=== PATIENT | male | born 1960 | race Caucasian/White ===

== ENCOUNTER → 2018-01-01 13:57 | Outpatient (CLI) | payer MEDICARE, SELFPAY ==
[2018-01-01 15:21] LABS: Absolute Lymphocyte Count 1.32 X10^3/ul (0.83-4.51); Absolute Neutrophil Count 7.7 X10^3/uL (2.0-7.7); Basophil# 0.03 X10^3/uL; Basophil% 0.3 % (0-1); Eosinophil# 0.08 X10^3/uL; Eosinophils% 0.8 % (0-5); Hematocrit 49.5 % (40-54); Hemoglobin 16.6 g/dl (13.0-16.5); Lymphocyte # 1.32 X10^3/ul (4.0); Lymphocyte % 13.7 % (19-41); Mean Corp Hgb Conc 33.5 g/gl (32-36); Mean Corpuscular Hgb 29.1 pg (27.0-32.0); Mean Corpuscular Volume 86.7 fL (80-94); Mean Platelet Vol. 11.2 fl (6.2-12.0); Monocyte# 0.46 X10^3/uL; Monocyte% 4.8 % (0-10); Neutrophil % 80.2 % (47-70); Platelet Count 366 K/mm3 (150-450); RBC Distribution Width CV 13.8 % (11.6-14.6); RBC Distribution Width SD 43.3 fl (35.1-43.9); Red Blood Count 5.71 M/mm3 (4.6-6.2); White Blood Count 9.6 K/mm3 (4.4-11.0)
[2018-01-01 15:38] LABS: ALB/GLOB Ratio 0.9 RATIO (0.9-2.4); AST(SGOT) 10 U/L (15-37); Alanine Aminotransfer ALT/SGPT 16 U/L (16-61); Albumin, Serum 3.7 g/dL (3.2-5.0); Alkaline Phosphatase 136 U/L (45-117); Anion Gap 8 (5-15); BUN 12 mg/dL (7-18); BUN/Creat Ratio 9.5 RATIO (10-20); Calcium,Total 8.6 mg/dL (8.5-10.1); Chloride 100 mmol/L (98-107); Cholesterol 211 mg/dL (200); Creatinine, Serum 1.26 mg/dL (0.70-1.30); EST Glomerular Filtration Rate 63 mL/min (>60); Est Glom Filt Rate - Afr Amer 76 mL/min (>60); Globulin 4.2 g/dL (2.2-4.2); Glucose 182 mg/dL (74-106); High Density Lipoprotein 34 mg/dL; Potassium 3.7 mmol/L (3.5-5.1); Prealbumin 23.7 mg/dL (20.0-40.0); Protein, Total 7.9 g/dL (6.4-8.2); Sodium Level 138 mmol/L (136-145); Thyroid Stim Hormone (TSH) 1.25 uIU/mL (0.358-3.74); Triglycerides 147 mg/dL; Very Low Density Lipoprotein 29 mg/dL (5-40)
[2018-01-01 15:44] LABS: POSITIVE COUNT NO; POSITIVE DIFFERENTIAL NO; POSITIVE MORPHOLOGY NO
[2018-01-02 18:27] LABS: PSA, Free 0.12 ng/mL; PSA, Total Ultrasensitive 0.6 ng/mL (0.0-4.0)
== END ==
PROVIDERS: Family Provider Family Medicine; PCP Family Medicine; Visit Provider Family Medicine
DX: I10 Essential (primary) hypertension (principal); E11.65 Type 2 diabetes mellitus with hyperglycemia; R63.4 Abnormal weight loss
CPT/HCPCS: 36415; 80053; 80061; 84134; 84153; 84154; 84443; 85025

== ENCOUNTER 2018-05-20 16:14 | Observation (INO) | payer MEDICARE, SELFPAY ==
[2018-05-20] VITALS (15 sets, daily range): BP systolic 135–214; BP diastolic 106–141; PULSE 77–833; RESP 11–22; TEMP 36.4–36.8; O2SAT 97–100; BMI 24.7; BMI 23.3; BMI 23.4
--- NOTE | 2018-05-20 16:41 | ED.DCSUM_ITS ---
- ER Visit Summary Date of Service: 05/20/18 Chief Complaint: Chest pain History of Present Illness: The patient is a 57 M with history of prior myocardial infarction, diabetes, hypertension and hypercholesterolemia who presents for chest pain since this morning. Pain is substernal and does not radiate. Onset was at rest. Initial pain was a 9 out of 10 and is now a 7 out of 10 after patient took Aleve. Patient states he cannot describe the pain. He states he also is having some right upper quadrant abdominal pain. He has no history of cholecystectomy. Patient denies smoking but does use oral tobacco. He denies alcohol use. Patient has not taken any aspirin today. Physical Examination: Vital signs: afebrile, hemodynamically stable, no hypoxia on room air General: well nourished, well developed, in no distress Skin: warm, dry, no rash, no pallor HEENT: normocephalic and atraumatic; PERRL, EOMI, moist mucous membranes, oral tobacco and mustache and alvarez Cardiovascular: regular rate and rhythm without murmurs, no peripheral edema, 2 + pulses all distal extremities Respiratory: No increased work of breathing, lungs are clear to auscultation bilaterally, no rales, rhonchi or wheezing Abdominal: Abdomen is soft, tender in the epigastrium and medial right and left upper quadrants with normoactive bowel sounds, no guarding or rebound, no masses , negative Mcghee's sign, no hepatosplenomegaly MSK: Moves all extremities, no deformities, normal strength Neuro: Awake and alert, oriented ?4. No facial droop, sensation and motor function intact and symmetric Test Results: Abnormal Lab Results 05/20/18 05/20/18 05/20/18 16:30 16:30 16:30 WBC 7.5 RBC 5.05 Hgb 15.3 Hct 44.3 MCV 87.7 MCH 30.3 MCHC 34.5 RDW 13.5 RDW Differential 42.9 Plt Count 283 MPV 10.8 Immature Gran % (Auto) 0.100 Neut % (Auto) 71.5 H Lymph % (Auto) 17.8 L [place] % (Auto) 5.9 Eos % (Auto) 4.4 Baso % (Auto) 0.3 Absolute Neuts (auto) 5.4 Absolute Lymphs (auto) 1.33 Total Counted Not Reportable PT 14.2 INR 1.1 APTT 29.7 Sodium 144 Potassium 3.9 Chloride 106 Carbon Dioxide 26.0 Anion Gap 12 BUN 22 H Creatinine 1.64 H Estim Creat Clear Calc 56.16 Est GFR (MDRD) Af Amer 56 L Est GFR (MDRD) Non-Af 46 L BUN/Creatinine Ratio 13.4 Glucose 123 H Calcium 8.7 Total Bilirubin 1.00 AST 9 L ALT 12 L Alkaline Phosphatase 87 Troponin I < 0.015 Total Protein 7.0 Albumin 4.0 Globulin 3.0 Albumin/Globulin Ratio 1.3 Lipase 99 POC Glucose 05/20/18 05/20/18 20:50 21:25 WBC RBC Hgb Hct MCV MCH MCHC RDW RDW Differential Plt Count MPV Immature Gran % (Auto) Neut % (Auto) Lymph % (Auto) [place] % (Auto) Eos % (Auto) Baso % (Auto) Absolute Neuts (auto) Absolute Lymphs (auto) Total Counted PT INR APTT Sodium Potassium Chloride Carbon Dioxide Anion Gap BUN Creatinine Estim Creat Clear Calc Est GFR (MDRD) Af Amer Est GFR (MDRD) Non-Af BUN/Creatinine Ratio Glucose Calcium Total Bilirubin AST ALT Alkaline Phosphatase Troponin I < 0.015 Total Protein Albumin Globulin Albumin/Globulin Ratio Lipase POC Glucose 158 H Clinical Impression(s) from Imaging Studies Chest X-Ray 05/20/18 17:50 IMPRESSION: No radiographic evidence of acute cardiopulmonary disease. Electronically Signed: Shanon Hammond MD at 18:13 EDT , Service support , Emergency Department Course and Treatment: Patient has significant cardiac history and risk factors and presents with substernal chest pain since this morning that occurred at rest. He states it is been constant all day and also has some right upper quadrant abdominal pain. Workup showed an EKG without ischemia or ectopy. Troponin negative. No leukocytosis. Creatinine elevated at 1.6. Chest x-ray showed no acute process. Patient received aspirin. He had complete resolution of his pain after 2 nitro. Patient was hypertensive upon arrival and blood pressure continued to go up. Patient states he is supposed to take antihypertensive medication but is not taking it in a long time for no specific reason other than he just has not taken it. Because patient is having chest pain and is also significantly hypertensive, he was given a dose of IV labetalol to help with blood pressure control in case it is contributing to his symptoms. Patient was discussed with the hospitalist for admission for further chest pain workup in a patient with significant cardiac history and very poorly controlled blood pressure. On reevaluation patient was pain-free and had no complaints. Treatment Plan: [] Disposition: [] Impression: Chest pain, uncontrolled hypertension, medication noncompliance, history of ACS This note was generated with [employer] dictation software. It may contain incorrect words, spelling, and punctuation that were not noted in review of the chart prior to signing ED Disposition - Plan for ED Patient: Disposition: Acute Care Hospital [facility] Chief Complaint: Chest Pain
[2018-05-20] MEDS: Aspirin 81 MG TAB.CHEW 324 MG PO (16:52)
[2018-05-20 17:03] LABS: Absolute Lymphocyte Count 1.33 X10^3/ul (0.83-4.51); Absolute Neutrophil Count 5.4 X10^3/uL (2.0-7.7); Basophil# 0.02 X10^3/uL; Basophil% 0.3 % (0-1); Eosinophil# 0.33 X10^3/uL; Eosinophils% 4.4 % (0-5); Hematocrit 44.3 % (40-54); Hemoglobin 15.3 g/dl (13.0-16.5); Lymphocyte # 1.33 X10^3/ul (4.0); Lymphocyte % 17.8 % (19-41); Mean Corp Hgb Conc 34.5 g/gl (32-36); Mean Corpuscular Hgb 30.3 pg (27.0-32.0); Mean Corpuscular Volume 87.7 fL (80-94); Mean Platelet Vol. 10.8 fl (6.2-12.0); Monocyte# 0.44 X10^3/uL; Monocyte% 5.9 % (0-10); Neutrophil # 5.36 X10^3/uL (2.7-7.7); Neutrophil % 71.5 % (47-70); POSITIVE COUNT NO; POSITIVE DIFFERENTIAL NO; POSITIVE MORPHOLOGY NO; Platelet Count 283 K/mm3 (150-450); RBC Distribution Width CV 13.5 % (11.6-14.6); RBC Distribution Width SD 42.9 fl (35.1-43.9); Red Blood Count 5.05 M/mm3 (4.6-6.2); White Blood Count 7.5 K/mm3 (4.4-11.0)
[2018-05-20 17:13] LABS: International Normalized Ratio 1.1; Prothrombin Time (Protime)PT. 14.2 SECONDS (11.7-14.9)
[2018-05-20 17:14] LABS: Partial Thromboplast Time 29.7 Seconds (24.1-36.2)
[2018-05-20 17:18] LABS: ALB/GLOB Ratio 1.3 RATIO (0.9-2.4); AST(SGOT) 9 U/L (15-37); Alanine Aminotransfer ALT/SGPT 12 U/L (16-61); Alkaline Phosphatase 87 U/L (45-117); Anion Gap 12 (5-15); BUN 22 mg/dL (7-18); BUN/Creat Ratio 13.4 RATIO (10-20); Calcium,Total 8.7 mg/dL (8.5-10.1); Chloride 106 mmol/L (98-107); Creatinine, Serum 1.64 mg/dL (0.70-1.30); EST Glomerular Filtration Rate 46 mL/min (>60); Est Glom Filt Rate - Afr Amer 56 mL/min (>60); Estimated Creatinine Clearance 56.16 ml/min; Glucose 123 mg/dL (74-106); Lipase 99 U/L (73-393); Potassium 3.9 mmol/L (3.5-5.1); Sodium Level 144 mmol/L (136-145)
--- NOTE | 2018-05-20 19:10 | PCM.HP.STD ---
Problem List (1) Chest pain at rest Status: Acute (2) HTN (hypertension) Status: Chronic Qualifiers: Hypertension type: essential hypertension Qualified Code(s): I10 - Essential (primary) hypertension (3) Diabetes Status: Chronic Qualifiers: Diabetes mellitus type: type 2 Diabetes mellitus emt intermediate insulin use: with emt intermediate use Diabetes mellitus complication status: with unspecified complications Qualified Code(s): E11.8 - Type 2 diabetes mellitus with unspecified complications; Z79.4 - superintendent terminal (current) use of insulin; Z79.4 - skilled nursing (current) use of insulin; Z79.4 - skilled nursing (current) use of insulin; Z79.4 - skilled nursing (current) use of insulin (4) Tobacco chew use Status: Chronic (5) RASHAWN (acute kidney injury) Status: Acute History of Present Illness Date of Admission: 05/20/18 Chief Complaint: Chest pain ?1 day. The patient is a 57 year old M with a significant history of CAD status post 2 stents, diabetes, hypertension, and patent foramen ovale who presented with 1 day history of continuous chest pain. Patient describes his chest pain as 7 out of 10. He is unable to describe the quality of his chest pain. His chest pain is substernal and it occurs at rest. At emergency department he was given 2 nitroglycerin and 4 baby aspirin which brought his chest pain from 7 to a 5. He last took his blood pressure medication a day before this admission. Past Medical History Past Medical History (Chronic Problems): Chronic Problems Tobacco chew use (Chronic) PFO (patent foramen ovale) (Chronic) Cerebrovascular disease (Chronic) Multiple acute ischemic strokes. Mild right facial and right upper extremity paresthesia. Diabetes (Chronic) HTN (hypertension) (Chronic) Hyperlipidemia (Chronic) Smokeless tobacco use (Chronic) CAD (coronary artery disease) (Chronic) CVA (cerebral vascular accident) (Chronic) S/P PTCA (percutaneous transluminal coronary angioplasty) (Chronic) Hyperglycemia (Chronic) Noncompliance with medication regimen (Chronic) Allergies ampicillin Allergy (Verified 05/20/18 16:15) Swelling ibuprofen [From Motrin] Allergy (Verified 05/20/18 16:15) Swelling SEA FOOD Allergy (Uncoded 05/20/18 16:15) Swelling Home Medications: Ambulatory Orders Medication Instructions Recorded Doxepin HCl 20 mg PO QHS 01/02/18 Oxycodone HCl/Acetaminophen 10 - 325 mg PO Q6H PRN PRN 09/18/17 [Percocet 10-325 mg Tablet] Atorvastatin Calcium [Lipitor] 80 mg PO QHS #30 tab 09/20/17 Lisinopril [Zestril] 20 mg PO DAILY #30 tab 09/20/17 Surgical History: - - PCI, ankle, hip surgery, stomach surgery, neck surgery. Psychiatric History: No pertinent psych hx Lives: Alone Smoking Status: Never smoker Tobacco Use: Chew Drugs: None - *Family History Maternal History Items: Diabetes Paternal History Items: Heart Disease Sibling History Items: Heart Disease - CAD Review of Systems Constitutional: Denies: Chills, Fever, Weight Change Eyes: Denies: Blurred vision, Pain HEENT: Denies: Head Aches, Sinus Congestion, Sinus Drainage Cardiovascular: Reports: Chest Pain. Denies: Edema Respiratory: Denies: Cough, Shortness of breath at rest, Sputum production Gastrointestinal: Denies: Abdominal Pain, Nausea, Vomiting Genitourinary: Denies: Dysuria Musculoskeletal: Reports: - - Bilateral hip pain (chronic). Skin: Denies: Rash, Wounds Neurological: Denies: Numbness, Tingling, Focal weakness Psychiatric: Denies: Anxiety, Depression, Homicidal Ideations, Suicidal Ideations Hematologic/ Lymphatic: Denies: Easy Bruising, Easy Bleeding VTE Information - Inpt Only VTE Present on Admission: No VTE Mechan Device Prophylaxis: None VTE Pharm Prophylaxis ordered?: Yes Patient Problems: Active and Suspected Problems Chest pain at rest (Acute) RASHAWN (acute kidney injury) (Acute) - Physical Exam General: Alert, Oriented x3, Cooperative HEENT: Atraumatic, PERRLA, EOMI, Normocephalic Neck: Supple, No JVD, Negative Carotid Bruits Lungs: Clear to auscultation, Normal air movement Cardiovascular: No murmurs, Tachycardic Abdomen: Bowel Sounds Present, Soft, Non Tender Extremities: No edema, Capillary Refill Less than 3 Seconds Skin: No rashes, No breakdown Musculoskeletal: No Tenderness to Palpation of Joints or Extremities Neurological: Cranial nerves II-XII grossly intact Psych/Mental Status: Normal Affect, Appropriate Vital Signs Temp Pulse Resp BP Pulse Ox 97.5 F L 86 17 206/141 H 100 05/20/18 16:16 05/20/18 19:01 05/20/18 19:01 05/20/18 19:01 05/20/18 19:01 Oxygen Flow Rate (L/min) 2 Oxygen Delivery Method Nasal Cannula Weight: 85.275 kg Body Mass Index (BMI) 24.7 Finger Stick Blood Glucose 391 Laboratory Tests Past 24 Hrs 05/20/18 05/20/18 05/20/18 16:30 16:30 16:30 WBC 7.5 RBC 5.05 Hgb 15.3 Hct 44.3 MCV 87.7 MCH 30.3 MCHC 34.5 RDW 13.5 RDW Differential 42.9 Plt Count 283 MPV 10.8 Immature Gran % (Auto) 0.100 Neut % (Auto) 71.5 H Lymph % (Auto) 17.8 L [place] % (Auto) 5.9 Eos % (Auto) 4.4 Baso % (Auto) 0.3 Absolute Neuts (auto) 5.4 Absolute Lymphs (auto) 1.33 Total Counted Not Reportable PT 14.2 INR 1.1 APTT 29.7 Sodium 144 Potassium 3.9 Chloride 106 Carbon Dioxide 26.0 Anion Gap 12 BUN 22 H Creatinine 1.64 H Estim Creat Clear Calc 56.16 Est GFR (MDRD) Af Amer 56 L Est GFR (MDRD) Non-Af 46 L BUN/Creatinine Ratio 13.4 Glucose 123 H Calcium 8.7 Total Bilirubin 1.00 AST 9 L ALT 12 L Alkaline Phosphatase 87 Troponin I < 0.015 Total Protein 7.0 Albumin 4.0 Globulin 3.0 Albumin/Globulin Ratio 1.3 Lipase 99 Assessment/Plan All Active Problems Chest pain at rest (Acute) RASHAWN (acute kidney injury) (Acute) Uncontrolled type 2 diabetes mellitus (Acute) Elevated troponin (Acute) Acute cerebrovascular accident of cerebellum (Acute) Syncope (Acute) Abnormal cardiac enzyme level (Acute) Hypokalemia (Acute) found confused (Acute) The patient is a 57 year old M with a significant history of CAD status post 2 stents, diabetes, hypertension, and patent foramen ovale who presented with 1 day history of continuous chest pain likely due to hypertensive emergency or angina pectoris; also found to have elevated creatinine consistent with acute kidney injury. Chest pain EKG reviewed independently does not show ST elevations or depressions. It shows prolonged QT Intervals. Chest x-ray independently reviewed is unremarkable. BMP, cardiac enzymes and other labs were reviewed Troponin is unremarkable. Admit to a monitored bed on PCU Old records reviewed showed shows history of previous chest pain and uncontrolled hypertension. ASA 81 mg p.o. daily SL NTG 0.4 mg prn as needed for chest pain Serial cardiac enzymes Stat EKG as needed for chest pain Chemical stress test in the AM if the cardiac enzymes are negative; patient has bilateral hip replacements and has pain in bilateral hips (likely from osteoarthritis) and cannot exercise High intensity Lipitor continued. Review of records showed lipid panel on 01/01/2018 showed cholesterol 211; LDL 148; HDL 34; VLDL 29. Hypertensive emergency Systolic blood pressure at emergency department was more than 200; uncontrolled. Patient with chronic hypertension. Patient reported last time he took blood pressure medication was a day before his admission. Hypertensive emergency likely due to barrier in taking medication Patient received labetalol at emergency department Urine drug screen ordered. Trend blood pressures and titrate antihypertensive medications. Echocardiogram on 09/19/17 showed an ejection fraction of 40%. However at that time he had influenza. And per cardiology notes; further evaluation after his influenza resolved was suggested. Echocardiogram ordered. On her last visit cardiology suggested continuation of beta blockers, DAMIÁN inhibitor and possible addition of a calcium channel nanette. DAMIÁN inhibitor (lisinopril) has been held because of RASHAWN. Home medications does not show a beta-nanette; or calcium channel nanette at this time. Metoprolol and amlodipine ordered. Clonodine prn and labetalol prn for systolic blood pressure more than 180. Titrate blood pressure medication as necessary. RASHAWN Creatinine on admission was 1.64 Review of previous creatinine shows a creatinine level of 1.26 on 01/01/2018; and1.16 on 09/21/2015. BUN over creatinine is more than 20. Likely due to prerenal from dehydration. Trend BMP Gentle fluid hydration with normal saline Avoid nephrotoxic Diabetes Patient reports that he takes Humalog 5-6 units with each meal. He reports that he use to take metformin 2000 mg daily but metformin dose was cut down. Correction scale insulin ordered for now. We will keep n.p.o. for cardiac evaluation in a.m. Fingerstick blood glucose every 6 hours with correction scale insulin. Tobacco abuse Patient chew tobacco. Was counseled Refused nicotine patch. History of CAD with stents Aspirin as above. Osteoarthritis of bilateral hips. Patient reports bilateral hip replacements and scheduled Percocet 4 times daily. Percocet continued. DVT prophylaxis with subcutaneous heparin. Code Visit Inpatient E&M: 37981 Init Hosp L3
--- NOTE | 2018-05-20 19:58 | NURSING ---
ED call floor to see if pt. can come up. charge RNs were in report so did not call earlier. Told ED OK bring. pt.
[2018-05-20] MEDS: 0.9% Normal Saline 1,000 ML 75 ML IV (21:16)
[2018-05-20] MEDS: amLODIPine 5 MG Tablet PO (21:17)
[2018-05-20] MEDS: Metoprolol Tartrate 50 MG Tablet PO (21:18)
[2018-05-20] MEDS: Atorvastatin Calcium 80 MG Tablet PO (21:18)
[2018-05-20] MEDS: Heparin Injection (Vial) 5,000 UNIT/ML VIAL 5000 UNIT SC (21:22)
[2018-05-20] MEDS: Insulin Lispro 100 UNIT/ML INSULN.PEN SQ (21:36)
[2018-05-20] MEDS: Doxepin Hydrochloride 10 MG Capsule 20 MG PO (22:16)
[2018-05-20] MEDS: oxyCODONE 5 MG Tablet 10 MG PO (22:17)
[2018-05-20 23:06] LABS: Bedside Glucose 158 mg/dL (70-110)
[2018-05-21] VITALS (21 sets, daily range): BP systolic 111–191; BP diastolic 69–118; PULSE 66–90; RESP 16–18; TEMP 36.4–37.2; O2SAT 95–100
[2018-05-21 05:39] LABS: Hematocrit 42.4 % (40-54); Mean Corpuscular Hgb 29.4 pg (27.0-32.0); Mean Corpuscular Volume 89.1 fL (80-94); Mean Platelet Vol. 10.5 fl (6.2-12.0); Platelet Count 238 K/mm3 (150-450); RBC Distribution Width CV 13.7 % (11.6-14.6); RBC Distribution Width SD 44.5 fl (35.1-43.9); Red Blood Count 4.76 M/mm3 (4.6-6.2); White Blood Count 6.9 K/mm3 (4.4-11.0)
[2018-05-21 05:45] LABS: Scan Indicated on CBC? Y/N NO
[2018-05-21 05:52] LABS: International Normalized Ratio 1.1; Prothrombin Time (Protime)PT. 13.9 SECONDS (11.7-14.9)
[2018-05-21 05:58] LABS: Anion Gap 9 (5-15); BUN 21 mg/dL (7-18); BUN/Creat Ratio 16.3 RATIO (10-20); Chloride 106 mmol/L (98-107); Creatinine, Serum 1.29 mg/dL (0.70-1.30); EST Glomerular Filtration Rate 61 mL/min (>60); Est Glom Filt Rate - Afr Amer 74 mL/min (>60); Glucose 131 mg/dL (74-106); Potassium 3.6 mmol/L (3.5-5.1); Sodium Level 142 mmol/L (136-145)
[2018-05-21] MEDS: Aspirin E.C. 81 MG Tablet PO (06:32)
[2018-05-21 06:55] LABS: Bedside Glucose 120 mg/dL (70-110)
--- NOTE | 2018-05-21 11:01 | STRESSREP ---
Stress Test Report Date: 05/21/2018 Procedure: Pharmacologic stress nuclear imaging study Indications: Chest pain; CAD; status post PCI Consent: Per the patient Procedure: The patient underwent pharmacologic (Regadenoson) evaluation with a peak heart rate of 91 beats per minute (55 predicted maximal heart rate) and a peak blood pressure of 162/118 mmHg. The baseline ECG demonstrated normal sinus rhythm. The peak pharmacologic ECG demonstrated subtle nonspecific ST/T-wave abnormality. There were no cardiac dysrhythmias pretest, during pharmacologic infusion, or recovery. There was no complaint of chest discomfort during pharmacologic infusion or recovery. The examination was discontinued secondary to completion of protocol. Impression: 1. Pharmacologic (Regadenoson) evaluation 2. Peak pharmacologic ECG with subtle nonspecific ST/T-wave abnormality. 3. There were no cardiac dysrhythmias pretest, during pharmacologic infusion, or recovery 4. Nuclear images pending Myocardial perfusion imaging study: Technique: The patient was injected with 11.8 millicuries of technetium 99m Cardiolite and subsequently rest SPECT Cardiolite nuclear imaging was obtained in the horizontal long, vertical long, and short axis views. The patient underwent pharmacologic (Regadenoson) evaluation with a peak heart rate of 91 beats per minute (55 % percent predicted maximal heart rate) and a peak blood pressure of 162/118 mmHg. The patient was injected with 33.8 millicuries of technetium 99m Cardiolite and subsequently stress SPECT Cardiolite nuclear imaging was obtained in the horizontal long, vertical long, and short axis views. A gated Cardiolite study at peak stress was obtained. Interpretation: Rest and stress SPECT Cardiolite nuclear imaging status post realignment, normalization, and attenuation correction demonstrate the appearance of diminished absence of myocardial perfusion/tracer uptake in portions of the basal to mid lateral segments which appears to be somewhat more prominent following stress as opposed to rest. There is diminished end systolic thickening and brightening in the aforementioned areas. The gated Cardiolite study demonstrates diminished myocardial thickening and inward wall motion in the aforementioned areas. The reported LVEF is 36%. Impression: 1. Rest and stress SPECT Cardiolite nuclear imaging demonstrate myocardial perfusion changes appearing compatible with an area of previous myocardial injury/infarction involving the basal to mid lateral segment with post stress myocardial perfusion changes appearing compatible with mild erum-infarct related myocardial ischemia. 2. The gated Cardiolite study reports an LVEF of 36 %. This note was generated with Dragon dictation software. It may contain incorrect words, spelling, and punctuation that were not noted in checking the note before signing.
--- NOTE | 2018-05-21 12:14 | CASEMGMT ---
According to the [facility] website, the following are in-network tertiary facilities: [facility], [place], [facility], [facility], [facility], [facility], and . Salome PRABHAKAR CM
[2018-05-21] MEDS: Metoprolol Tartrate 50 MG Tablet PO ×2 (12:29→23:11)
[2018-05-21] MEDS: amLODIPine 5 MG Tablet PO (12:29)
--- NOTE | 2018-05-21 12:33 | PCM.PROGNOTE ---
Patient Problems: Active and Suspected Problems Chest pain at rest (Acute) RASHAWN (acute kidney injury) (Acute) Chest pain (Acute) Abnormal stress test (Acute) Subjective: Chief complaint: Follow-up after admission for chest pain, acute kidney injury and hypertensive urgency. Patient seen and examined. No acute events overnight. This morning, he denies any more chest pain. He had very flat affect and did not say cover for this. He had very flat face. His blood pressure improved, other vital signs are stable. - Physical Exam General: Alert, Oriented x3, Cooperative, No apparent distress HEENT: Atraumatic, PERRLA, EOMI, Normocephalic Oral: Moist Mucosa, No Gingival or Mucosal Lesions/ Ulcerations Neck: Supple, No JVD, Negative Carotid Bruits, Trachea Midline, Thyroid Normal Size and Texture Lungs: Clear to auscultation, Normal air movement, No rhonchi, No wheeze, No rales Cardiovascular: Regular rate, Regular Rhythm, Normal S1, Normal S2, PMI Normal Abdomen: Bowel Sounds Present, Soft, Non Tender, Non-Distended, No Hepato-splenomegaly Extremities: No clubbing, No cyanosis, No edema Skin: No rashes, No breakdown Lymphatic: No Cervical, Supraclavicular, or Inguinal Adenopathy Neurological: Cranial nerves II-XII grossly intact, Neuro grossly intact Psych/Mental Status: Flat Affect Vital Signs Temp Pulse Resp BP Pulse Ox 98.0 F 75 18 158/104 H 98 05/21/18 08:40 05/21/18 11:12 05/21/18 08:40 05/21/18 08:40 05/21/18 08:40 Oxygen Flow Rate (L/min) 2 Oxygen Delivery Method Room Air Weight: 177 lb 0.499 oz Body Mass Index (BMI) 23.3 Intake and Output for Last 24 Hours 05/19/18 05/20/18 05/21/18 23:59 23:59 23:59 Intake Total 485 / 485 Balance 485 / 485 Laboratory Tests Past 24 Hrs 05/20/18 05/21/18 05/21/18 20:50 01:10 05:10 WBC 6.9 RBC 4.76 Hgb 14.0 Hct 42.4 MCV 89.1 MCH 29.4 MCHC 33.0 RDW 13.7 RDW Differential 44.5 H Plt Count 238 MPV 10.5 PT INR APTT Sodium Potassium Chloride Carbon Dioxide Anion Gap BUN Creatinine Estim Creat Clear Calc Est GFR (MDRD) Af Amer Est GFR (MDRD) Non-Af BUN/Creatinine Ratio Glucose Calcium Troponin I < 0.015 < 0.015 05/21/18 05/21/18 05:10 05:10 WBC RBC Hgb Hct MCV MCH MCHC RDW RDW Differential Plt Count MPV PT 13.9 INR 1.1 APTT 30.0 Sodium 142 Potassium 3.6 Chloride 106 Carbon Dioxide 27.0 Anion Gap 9 BUN 21 H Creatinine 1.29 Estim Creat Clear Calc 71.40 Est GFR (MDRD) Af Amer 74 Est GFR (MDRD) Non-Af 61 BUN/Creatinine Ratio 16.3 Glucose 131 H Calcium 8.0 L Troponin I POC Glucose 05/21/18 05/20/18 06:31 21:25 POC Glucose 120 H 158 H Clinical Impression(s) from Imaging Studies Chest X-Ray 05/20/18 17:50 IMPRESSION: No radiographic evidence of acute cardiopulmonary disease. Electronically Signed: Shanon Hammond MD at 18:13 EDT , Service support , Medical Necessity - Tobacco Use Smoking Status: Never smoker Tobacco Use: Chew Assessment/Plan All Active Problems Chest pain at rest (Acute) RASHAWN (acute kidney injury) (Acute) Chest pain (Acute) Abnormal stress test (Acute) This is a 57 years old male patient presented to the emergency room because of chest pain, found to have hypertensive urgency, acute kidney injury as well as abnormal stress test. #1 chest pain/abnormal stress test: His EKG revealed no evidence of acute ischemic changes. Troponin was negative ?3. Today, he underwent nuclear stress test that was reported as abnormal. On aspirin, statins, beta blockers. Today, he has no more pain. Blood pressure improved. Cardiology consulted and planning for cardiac catheterization. 2D echocardiogram ordered. #2 hypertensive urgency: This is attributed to noncompliance. Blood pressure was up to 214/140 overnight. Today, it came down to around 150 systolic and most recently, it is up to 191 again. At home, he has been only on lisinopril. At this time, he is on Norvasc, metoprolol and as needed Catapres and labetalol. Plan to continue same treatment, close monitoring. #3 acute kidney injury: Baseline creatinine is normal. Admission creatinine was 1.64, patient was on IV fluids and creatinine came down to 1.9 today, improved. #4 CAD status post stents: Plan as above, continue aspirin, statins, beta blockers. #5 type 2 diabetes mellitus: So far, blood pressure under fair control. Hemoglobin A1c was 7.6 back in general, 2018. Patient is on sliding scale only at this time. Plan to potassium treatment, monitoring. #6 hypertension: Blood pressure is elevated, plan as above. #7 history of CVA: He is on aspirin and statins. #8 DVT prophylaxis: Subcu heparin. This note was generated with [employer] dictation software. It may contain incorrect words, spelling, and punctuation that were not noted in checking the note before signing. Code Visit OBSV E&M: 05145 Subsequent observation care L2
--- NOTE | 2018-05-21 12:34 | PCM.CONS.C ---
Problem List (1) Chest pain Status: Acute (2) Abnormal stress test Status: Acute (3) CAD (coronary artery disease) Status: Chronic Qualifiers: Coronary Disease-Associated Artery/Lesion type: unspecified vessel or lesion type [place] vs. transplanted heart: unspecified whether [place] or transplanted heart Associated angina: angina presence unspecified Qualified Code(s): I25.10 - Atherosclerotic heart disease of [place] coronary artery without angina pectoris (4) S/P PTCA (percutaneous transluminal coronary angioplasty) Status: Chronic (5) Hyperlipidemia Status: Chronic Qualifiers: Hyperlipidemia type: unspecified Qualified Code(s): E78.5 - Hyperlipidemia, unspecified (6) HTN (hypertension) Status: Chronic Qualifiers: Hypertension type: essential hypertension Qualified Code(s): I10 - Essential (primary) hypertension (7) Diabetes Status: Chronic Qualifiers: Diabetes mellitus type: type 2 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 Diabetes mellitus complication status: with unspecified complications Qualified Code(s): E11.8 - Type 2 diabetes mellitus with unspecified complications; Z79.4 - [facility] (current) use of insulin; 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 The patient also has a history of medication noncompliance. He states he has been having chest discomfort which occurs at any time. He states it is hard to describe his discomfort. It comes and goes. It is not necessarily associated with radiation to the neck, jaw, or upper extremities. He does not necessarily have associated nausea, emesis, or diaphoresis. He denies any obvious ongoing dyspnea, orthopnea, or PND or peripheral pitting edema. He states that he has undergone previous diagnostic cardiac catheterization and PCI at [facility] in [place], [place] in the past. He believes his last cardiovascular evaluation was approximately 4 years ago. He states he has had no cardiac evaluation since that time. He admits that he does not take his medications daily as recommended. His brother, who is present at the time, states his medications are in daily Dosepaks for him. However despite that he states he still does not take his medications every day as he is supposed to. The patient states he just forgets to . He has been evaluated at the hospital. His cardiac enzymes have been negative. His ECG has demonstrated sinus rhythm. He had a pharmacologic stress nuclear imaging study. It demonstrated findings compatible with a previous area of myocardial injury/infarction involving the basal to mid lateral segments with erum-infarct related myocardial ischemia. [] Past Medical History Allergies/Adverse Reactions: Allergies ampicillin Allergy (Verified 05/20/18 16:15) Swelling ibuprofen [From Motrin] Allergy (Verified 05/20/18 16:15) Swelling SEA FOOD Allergy (Uncoded 05/20/18 16:15) Swelling Home Medications: Ambulatory Orders Medication Instructions Recorded Doxepin HCl 20 mg PO QHS 09/18/17 Oxycodone HCl/Acetaminophen 10 - 325 mg PO Q6H PRN PRN 09/18/17 [Percocet 10-325 mg Tablet] Atorvastatin Calcium [Lipitor] 80 mg PO QHS #30 tab 09/20/17 Lisinopril [Zestril] 20 mg PO DAILY #30 tab 09/20/17 Aspirin E.C. [Ecotrin] 81 mg PO DAILY@0800 #90 tab 05/21/18 Metoprolol Tartrate [Lopressor 50 mg PO BID #90 tab 05/21/18 (beta nanette)] Past Medical History (Chronic Problems): Chronic Problems Tobacco chew use (Chronic) PFO (patent foramen ovale) (Chronic) Cerebrovascular disease (Chronic) Multiple acute ischemic strokes. Mild right facial and right upper extremity paresthesia. Diabetes (Chronic) HTN (hypertension) (Chronic) Hyperlipidemia (Chronic) Smokeless tobacco use (Chronic) CAD (coronary artery disease) (Chronic) CVA (cerebral vascular accident) (Chronic) S/P PTCA (percutaneous transluminal coronary angioplasty) (Chronic) Hyperglycemia (Chronic) Noncompliance with medication regimen (Chronic) Surgical History: angioplasty, - - PCI, ankle, hip surgery, stomach surgery, neck surgery. Psychiatric History: No pertinent psych hx - *Family History Maternal History Items: Diabetes Paternal History Items: Heart Disease Sibling History Items: Heart Disease - CAD Lives: Alone Smoking Status: Never smoker Tobacco Use: Chew Drugs: None Review of Systems - Review of Systems Cardiovascular: Reports: Chest Discomfort, Chest Discomfort at Rest Subjectve: This is a 57-year-old white male who appears to be resting comfortably at the moment in no acute distress. Objective: Vital Signs Temp Pulse Resp BP Pulse Ox 98.0 F 75 18 158/104 H 98 05/21/18 08:40 05/21/18 11:12 05/21/18 08:40 05/21/18 08:40 05/21/18 08:40 Oxygen Flow Rate (L/min) 2 Oxygen Delivery Method Room Air Weight: 177 lb 0.499 oz Body Mass Index (BMI) 23.3 Intake and Output for Last 24 Hours 05/19/18 05/20/18 05/21/18 23:59 23:59 23:59 Intake Total 485 / 485 Balance 485 / 485 General: Awake, Alert, Oriented x 3, Cooperative, No Acute Distress HEENT: Atraumatic, Normocephalic Oral: Moist Mucosa Neck: Supple, Good ROM, No JVD Lungs: Clear to auscultation Cardiovascular: Regular Rhythm, Normal S1, Normal S2 Vascular: No Carotid Bruits Abdomen: Bowel Sounds Present, Soft, Non Tender Extremities: No Cyanosis, No Clubbing, No edema Lymphatic: No Lymph Node Enlargement Neurological: No Focal Motor or Sensory Deficit, CN II-XII Intact Psych/Mental Status: Flat Affect 05/20/18 20:50: Troponin I < 0.015 05/21/18 01:10: Troponin I < 0.015 05/21/18 05:10: WBC 6.9, RBC 4.76, Hgb 14.0, Hct 42.4, MCV 89.1, MCH 29.4, MCHC 33.0, RDW 13.7, RDW Differential 44.5 H, Plt Count 238, MPV 10.5 05/21/18 05:10: Sodium 142, Potassium 3.6, Chloride 106, Carbon Dioxide 27.0, Anion Gap 9, BUN 21 H, Creatinine 1.29, Est GFR (MDRD) Af Amer 74, Est GFR (MDRD) Non-Af 61, BUN/Creatinine Ratio 16.3, Glucose 131 H, Calcium 8.0 L 05/21/18 05:10: PT 13.9, INR 1.1, APTT 30.0 Rhythm: Sinus rhythm EKG: Sinus rhythm ECHO: 09/19/2017: Left ventricle: Reported as globally hypokinetic with an LVEF of 40%; mild TR Stress Test: As noted above Cardiac Cath: Unavailable for review at this time PCI: Unavailable for review at this time CXR: Preliminary evaluation: No acute cardiopulmonary disease process appreciated: Please see official report Assessment/Plan 1. Chest pain The patient has chest pain. He appears to have difficulty describing his chest pain. There are concerns based upon his cardiovascular risk factors, his previous diagnosis, and his abnormal pharmacologic stress nuclear imaging study that this may be related to underlying CAD and myocardial ischemia. At the present time his cardiac enzymes have been negative. His ECG is demonstrated no acute change. He will continue medical management as deemed appropriate. It was felt reasonable that he be reassessed in the cardiac catheterization laboratory. The procedure and risks were discussed with the patient in the presence of his brother. Both were in agreement to proceeding with the aforementioned evaluation and care plan. 2. Abnormal pharmacologic stress nuclear imaging study This does raise concern of his underlying CAD with an area of previous VT and erum-VT related myocardial ischemia. Thus he will continue medical management and evaluation as noted above. 3. CAD status post PCI The patient does not recall the details of his previous CAD and PCI history. An attempt will be made to retrieve outside medical records for continuity of care purposes. In the interim he will continue evaluation care as noted above. 4. Hyperlipidemia The patient will continue lipid-lowering therapy as deemed appropriate. 5. Hypertension The patient's blood pressure has been elevated. His medications being adjusted to bring his blood pressure under better control. 6. Diabetes mellitus The patient will continue evaluation care per internal medicine. Comment: The above was discussed with the patient and his brother. It was also stressed that the patient take his medications as prescribed to assist with his cardiovascular risk factors and various diagnoses. This note was generated with Fliptopation software. It may contain incorrect words, spelling, and punctuation that were not noted in checking the note before signing.
[2018-05-21 12:36] LABS: Bedside Glucose 126 mg/dL (70-110)
[2018-05-21 13:03] LABS: Amphetamine Urine VISTA NEGATIVE (<1000 ng/mL); Barbiturate Urine VISTA NEGATIVE (< 200 ng/mL); Benzodiazepine Urine VISTA NEGATIVE (< 200 ng/mL); Cocaine Urine VISTA NEGATIVE (< 300 ng/mL); Ecstacy Urine VISTA NEGATIVE (< 500 ng/mL); Methadone Urine VISTA NEGATIVE (< 300 ng/mL); PCP Urine VISTA NEGATIVE (< 25 ng/mL); THC Urine VISTA NEGATIVE (< 50 ng/mL); Vista UDS pH Range 5
[2018-05-21] MEDS: oxyCODONE 5 MG Tablet 10 MG PO (13:04)
[2018-05-21] MEDS: cloNIDine HCl 0.1 MG Tablet PO (13:04)
[2018-05-21] MEDS: Clopidogrel Bisulfate 300 MG Tablet PO (13:05)
[2018-05-21] MEDS: 0.9% NaCl Peripheral Flush Adult/Peds IV (13:07)
[2018-05-21] MEDS: 0.9% Normal Saline 1,000 ML 15 ML IV (13:07)
[2018-05-21 17:10] LABS: Bedside Glucose 121 mg/dL (70-110)
[2018-05-21] MEDS: Lisinopril 10 MG Tablet PO (23:11)
[2018-05-21] MEDS: Doxepin Hydrochloride 10 MG Capsule 20 MG PO (23:11)
[2018-05-21] MEDS: Atorvastatin Calcium 80 MG Tablet PO (23:11)
[2018-05-21] MEDS: Insulin Lispro 100 UNIT/ML INSULN.PEN SQ (23:12)
[2018-05-21 23:20] LABS: Bedside Glucose 198 mg/dL (70-110)
[2018-05-22] VITALS (8 sets, daily range): BP systolic 131–162; BP diastolic 86–99; PULSE 66–80; RESP 16–18; TEMP 36.6–36.8; O2SAT 98–100
[2018-05-22] MEDS: Heparin Injection (Vial) 5,000 UNIT/ML VIAL 5000 UNIT SC (06:14)
[2018-05-22 06:48] LABS: Hematocrit 43.8 % (40-54); Hemoglobin 14.6 g/dl (13.0-16.5)
[2018-05-22 07:01] LABS: Anion Gap 10 (5-15); BUN 19 mg/dL (7-18); Calcium,Total 8.8 mg/dL (8.5-10.1); Chloride 105 mmol/L (98-107); Creatinine, Serum 1.19 mg/dL (0.70-1.30); EST Glomerular Filtration Rate 67 mL/min (>60); Est Glom Filt Rate - Afr Amer 81 mL/min (>60); Glucose 112 mg/dL (74-106); Potassium 4.4 mmol/L (3.5-5.1); Sodium Level 140 mmol/L (136-145)
[2018-05-22 07:05] LABS: Bedside Glucose 116 mg/dL (70-110)
[2018-05-22] MEDS: Isosorbide Mononitrate 30 MG Tablet PO (09:02)
[2018-05-22] MEDS: amLODIPine 10 MG Tablet PO (09:02)
[2018-05-22] MEDS: Aspirin E.C. 81 MG Tablet PO (09:02)
[2018-05-22] MEDS: Metoprolol Tartrate 50 MG Tablet PO (09:02)
[2018-05-22] MEDS: Lisinopril 10 MG Tablet PO ×2 (09:03→13:51)
[2018-05-22] MEDS: Clopidogrel Bisulfate 75 MG Tablet PO (09:03)
--- NOTE | 2018-05-22 10:00 | CASEMGMT ---
Per therapy, pt would benefit from a wheeled walker. Order written at this time and awaiting signature from Dr. Simmons. Pt states he would like [employer] for walker as he has used them previously for DME. Order will be faxed to [facility] once signature obtained. Salome PRABHAKAR CM
--- NOTE | 2018-05-22 10:11 | CASEMGMT ---
Call to [facility] and per Akanksha, they will have the walker delivered to pt by noon. Salome PRABHAKAR CM
[2018-05-22 12:20] LABS: Bedside Glucose 133 mg/dL (70-110)
--- NOTE | 2018-05-22 13:54 | PCM.DC ---
- Discharge Diagnoses Current Active Problems: Current Active and Chronic Problems Chest pain at rest (Acute) Tobacco chew use (Chronic) RASHAWN (acute kidney injury) (Acute) Chest pain (Acute) Abnormal stress test (Acute) Reason(s) for Visit for Discharge Instructions: Chest pain You will use the following diet at home:: Cardiac Your food should be the consistency of: Regular Your liquids should be the consistency of: Regular/Thin Discharge Activity: Return to Normal Activity Additional Instructions: Continue to take all your medications. Follow a low fat, low salt diet. Follow-up with your PCP and cardiology, DR. Wilkins in 2 weeks Allergies/Adverse Reactions: Allergies ampicillin Allergy (Verified 05/20/18 16:15) Swelling ibuprofen [From Motrin] Allergy (Verified 05/20/18 16:15) Swelling SEA FOOD Allergy (Uncoded 05/20/18 16:15) Swelling Medications to take at Discharge Doxepin HCl 20 mg PO QHS 09/18/17 Oxycodone HCl/Acetaminophen [Percocet 10-325 mg Tablet] 10 - 325 mg PO Q6H PRN PRN 09/18/17 Atorvastatin Calcium [Lipitor] 80 mg PO QHS #30 tab 09/20/17 Aspirin E.C. [Ecotrin] 81 mg PO DAILY@0800 #90 tab 05/21/18 Metoprolol Tartrate [Lopressor (beta nanette)] 50 mg PO BID #90 tab 05/21/18 Amlodipine [Norvasc] 10 mg PO DAILY #30 tab 05/22/18 Isosorbide Mononitrate [Imdur] 30 mg PO DAILY #30 tab 05/22/18 Lisinopril [Zestril] 20 mg PO BID #30 tab 05/22/18 Nitroglycerin [Nitrostat] 0.4 mg SUBLINGUAL Q5M PRN #10 tab 05/22/18 The following prescriptions were given: Amlodipine [Norvasc] 10 mg PO DAILY #30 tab Aspirin E.C. [Ecotrin] 81 mg PO DAILY@0800 #90 tab Isosorbide Mononitrate [Imdur] 30 mg PO DAILY #30 tab Nitroglycerin [Nitrostat] 0.4 mg SUBLINGUAL Q5M PRN #10 tab PRN Reason: Chest Pain Lisinopril [Zestril] 20 mg PO BID #30 tab Metoprolol Tartrate [Lopressor (beta nanette)] 50 mg PO BID #90 tab Primary Care Physician: Rosario Arroyo DO [Primary Care Provider] - Please follow up with your Primary Care Physician in: within 2 weeks Test Results: Test results from this visit will be discussed in further detail at your follow-up appointment, if applicable. Please Follow Up With: Kwabena Wilkins MD When: within 2 weeks Proposed Discharge Date: 05/22/18
--- NOTE | 2018-05-22 13:59 | DCINST_ITS ---
- Discharge Diagnoses Current Active Problems: Current Active and Chronic Problems Chest pain at rest (Acute) Tobacco chew use (Chronic) RASHAWN (acute kidney injury) (Acute) Chest pain (Acute) Abnormal stress test (Acute) Reason(s) for Visit for Discharge Instructions: Chest pain You will use the following diet at home:: Cardiac Your food should be the consistency of: Regular Your liquids should be the consistency of: Regular/Thin Discharge Activity: Return to Normal Activity Additional Instructions: Continue to take all your medications. Follow a low fat, low salt diet. Follow-up with your PCP and cardiology, DR. Wilkins in 2 weeks Allergies/Adverse Reactions: Allergies ampicillin Allergy (Verified 05/20/18 16:15) Swelling ibuprofen [From Motrin] Allergy (Verified 05/20/18 16:15) Swelling SEA FOOD Allergy (Uncoded 05/20/18 16:15) Swelling Medications to take at Discharge Doxepin HCl 20 mg PO QHS 09/18/17 Oxycodone HCl/Acetaminophen [Percocet 10-325 mg Tablet] 10 - 325 mg PO Q6H PRN PRN 09/18/17 Atorvastatin Calcium [Lipitor] 80 mg PO QHS #30 tab 09/20/17 Aspirin E.C. [Ecotrin] 81 mg PO DAILY@0800 #90 tab 05/21/18 Metoprolol Tartrate [Lopressor (beta nanette)] 50 mg PO BID #90 tab 05/21/18 Amlodipine [Norvasc] 10 mg PO DAILY #30 tab 05/22/18 Isosorbide Mononitrate [Imdur] 30 mg PO DAILY #30 tab 05/22/18 Lisinopril [Zestril] 20 mg PO BID #30 tab 05/22/18 Nitroglycerin [Nitrostat] 0.4 mg SUBLINGUAL Q5M PRN #10 tab 05/22/18 The following prescriptions were given: Amlodipine [Norvasc] 10 mg PO DAILY #30 tab Aspirin E.C. [Ecotrin] 81 mg PO DAILY@0800 #90 tab Isosorbide Mononitrate [Imdur] 30 mg PO DAILY #30 tab Nitroglycerin [Nitrostat] 0.4 mg SUBLINGUAL Q5M PRN #10 tab PRN Reason: Chest Pain Lisinopril [Zestril] 20 mg PO BID #30 tab Metoprolol Tartrate [Lopressor (beta nanetet)] 50 mg PO BID #90 tab Primary Care Physician: Rosario Arroyo DO [Primary Care Provider] - Please follow up with your Primary Care Physician in: within 2 weeks Test Results: Test results from this visit will be discussed in further detail at your follow- up appointment, if applicable. Please Follow Up With: Kwabena Wilknis MD When: within 2 weeks Proposed Discharge Date: 05/22/18
--- NOTE | 2018-05-22 13:59 | PCM.DC.SUM ---
Discharge Date and Diagnosis Date of Admission: 05/20/18 Date of Discharge: 05/22/18 - Primary Discharge Diagnosis Active and Suspected Problems Chest pain at rest (Acute) RASHAWN (acute kidney injury) (Acute) Chest pain (Acute) Abnormal stress test (Acute) Tobacco dependency CAD Hypertensive urgency - Secondary Discharge Diagnosis Chronic Problems Tobacco chew use (Chronic) PFO (patent foramen ovale) (Chronic) Diabetes (Chronic) HTN (hypertension) (Chronic) Hyperlipidemia (Chronic) Smokeless tobacco use (Chronic) Uncontrolled type 2 diabetes mellitus (Chronic) CAD (coronary artery disease) (Chronic) Acute cerebrovascular accident of cerebellum (Chronic) CVA (cerebral vascular accident) (Chronic) S/P PTCA (percutaneous transluminal coronary angioplasty) (Chronic) Noncompliance with medication regimen (Chronic) Hospital Course and Treatment Operations: None Procedures: Cardiac catheterization, Nuclear stress test Summary of Care Provided: The patient is a 57 year old M past medical history of CAD status post stents, type II DM, hypertension, hyperlipidemia, chronic nicotine use who comes in with complaints of chest pain which is retrosternal, occurring at rest, relieved with 2 nitroglycerin and 4 baby aspirin. His initial EKG shows no acute ST-T changes. His troponins were negative. He underwent a nuclear stress test that was reported as abnormal. Cardiology was consulted and he underwent further cardiac catheterization. Findings in cardiac cath included EF of 50%, [place] multivessel CAD for which medical therapy was recommended because patient has history of medication noncompliance. 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 Wilkins here. The plan will be for him to come back to see Dr. Wilkins in 2-4 weeks and have a consideration made for PCI to be done. His blood pressure was noted to be elevated and he was managed as hypertensive emergency with changes to medications including Norvasc, metoprolol. Patient also had acute kidney injury which improved with IV fluids. Patient had his medications refilled at discharge. He was strongly advised to be compliant with his medications and to stop smoking. Discharge Diet: Low fat/ Low Cholesterol, 2000 mg Sodium Diet Discharge Activity: Return to Normal Activity Home Medications: Medications to take at Discharge Doxepin HCl 20 mg PO QHS 09/18/17 Oxycodone HCl/Acetaminophen [Percocet 10-325 mg Tablet] 10 - 325 mg PO Q6H PRN PRN 09/18/17 Atorvastatin Calcium [Lipitor] 80 mg PO QHS #30 tab 09/20/17 Aspirin E.C. [Ecotrin] 81 mg PO DAILY@0800 #90 tab 05/21/18 Metoprolol Tartrate [Lopressor (beta nanette)] 50 mg PO BID #90 tab 05/21/18 Amlodipine [Norvasc] 10 mg PO DAILY #30 tab 05/22/18 Isosorbide Mononitrate [Imdur] 30 mg PO DAILY #30 tab 05/22/18 Lisinopril [Zestril] 20 mg PO BID #30 tab 05/22/18 Nitroglycerin [Nitrostat] 0.4 mg SUBLINGUAL Q5M PRN #10 tab 05/22/18 Following Prescrptions Were Given to Patient: Amlodipine [Norvasc] 10 mg PO DAILY #30 tab Aspirin E.C. [Ecotrin] 81 mg PO DAILY@0800 #90 tab Isosorbide Mononitrate [Imdur] 30 mg PO DAILY #30 tab Nitroglycerin [Nitrostat] 0.4 mg SUBLINGUAL Q5M PRN #10 tab PRN Reason: Chest Pain Lisinopril [Zestril] 20 mg PO BID #30 tab Metoprolol Tartrate [Lopressor (beta nanette)] 50 mg PO BID #90 tab Primary Care Physician: Rosario Arroyo DO [Primary Care Provider] - Please follow up with your Primary Care Physician in: within 2 weeks Please Follow Up With: Kwabena Wilkins MD When: within 2 weeks Disposition: Home Minutes spent on discharge:: 35 Patient Condition:: Stable Medical Necessity - Tobacco Use Smoking Status: Never smoker Tobacco Use: Chew Meaningful Use Info Meaningful Use Diagnoses (Choose all that apply): None applicable Code Visit Inpatient E&M: 71867 Disch Hosp
== END 2018-05-22 13:56 | disposition home or self-care (01) ==
LOC: ED 17:43 → PCU 19:47
PROVIDERS: Hospitalist; Internal Medicine Cardiovascular Disease; Admitting Provider Hospitalist; Emergency Provider Emergency Medicine; Family Provider Family Medicine; PCP Family Medicine; Visit Provider Internal Medicine
DX: R07.89 Other chest pain (principal); R94.39 Abnormal result of other cardiovascular function study; I25.2 Old myocardial infarction; I10 Essential (primary) hypertension; R10.11 Right upper quadrant pain; Z91.14 Patient's other noncompliance with medication regimen; F17.220 Nicotine dependence, chewing tobacco, uncomplicated; I25.10 Atherosclerotic heart disease of native coronary artery without angina pectoris; E78.5 Hyperlipidemia, unspecified; Z79.899 Other long term (current) drug therapy; E11.65 Type 2 diabetes mellitus with hyperglycemia; E87.6 Hypokalemia; M16.0 Bilateral primary osteoarthritis of hip; N17.9 Acute kidney failure, unspecified; I16.0 Hypertensive urgency; Q21.1 Atrial septal defect; Z95.5 Presence of coronary angioplasty implant and graft
CPT/HCPCS: 36415; 71046; 78452; 80048; 80053; 80307; 82962; 83690; 84484; 85014; 85018; 85025; 85027; 85610; 85730; 93005; 93017; 93306; 93458; 96361; 96372; 96374; 97110; 97162; 97166; 97803; 99218; 99285; A9500; J7030; Q9967; A4216; C1769; C1894; G0378; J2785; J3490

== ENCOUNTER 2018-07-03 18:06 | Inpatient (IN) | payer MEDICARE, SELFPAY ==
[2018-07-03] VITALS (9 sets, daily range): BP systolic 72–162; BP diastolic 49–104; PULSE 63–77; RESP 12–16; TEMP 35.2–36.4; O2SAT 97–100; BMI 24.4; BMI 24.5
--- NOTE | 2018-07-03 18:20 | EKG12_ITS ---
Test Reason : Blood Pressure : / mmHG Vent. Rate : 074 BPM Atrial Rate : 074 BPM P-R Int : 180 ms QRS Dur : 082 ms QT Int : 436 ms P-R-T Axes : 033 017 014 degrees QTc Int : 483 ms Normal sinus rhythm Nonspecific T wave abnormality Prolonged QT Abnormal ECG When compared with ECG of 03-JUL-2018 18:25, MANUAL COMPARISON REQUIRED, DATA IS UNCONFIRMED Confirmed by JOELLE GAXIOLA, AMRITA ([id number]), photographic editor KARISSA ELENA ([id number]) on 07/08/2018 10:58:32 AM Referred By: Confirmed By:AMRITA LAI MD
--- NOTE | 2018-07-03 18:25 | RAD_ITS ---
STUDY: X-RAY CHEST REASON FOR EXAM: Male, 57 years old. Increased fatigue. TECHNIQUE: Single frontal view of the chest. COMPARISON: May 20, 2018 FINDINGS: The lungs are clear and expanded. There is no demonstrated pleural abnormality. Normal size heart. Normal mediastinum and gilbert. Normal visualized pulmonary arteries. Normal visualized aortic arch and descending thoracic aorta. Normal visualized thoracic spine. Normal visualized ribs, clavicles, and shoulders. There is no demonstrated abnormality of the visualized soft tissue structures of the upper abdomen. RAD/Chest 1 View (Portable) IMPRESSION: No acute cardiopulmonary process. Electronically Signed: Rosemary Cr MD at 19:24 EDT Tel , Service support ,
[2018-07-03 18:26] LABS: Bedside Glucose 186 mg/dL (70-110)
[2018-07-03] MEDS: 0.9% Normal Saline 1,000 ML 1000 ML IV (18:27)
[2018-07-03] MEDS: Aspirin 81 MG TAB.CHEW 324 MG PO (18:35)
[2018-07-03 18:40] LABS: Absolute Lymphocyte Count 1.54 X10^3/ul (0.83-4.51); Absolute Neutrophil Count 8.2 X10^3/uL (2.0-7.7); Basophil# 0.04 X10^3/uL; Basophil% 0.4 % (0-1); Eosinophil# 0.16 X10^3/uL; Eosinophils% 1.5 % (0-5); Hematocrit 42.2 % (40-54); Hemoglobin 13.8 g/dl (13.0-16.5); Lymphocyte # 1.54 X10^3/ul (4.0); Lymphocyte % 14.6 % (19-41); Mean Corp Hgb Conc 32.7 g/gl (32-36); Mean Corpuscular Hgb 29.8 pg (27.0-32.0); Mean Corpuscular Volume 91.1 fL (80-94); Mean Platelet Vol. 11.1 fl (6.2-12.0); Monocyte# 0.64 X10^3/uL; Monocyte% 6.1 % (0-10); Neutrophil # 8.17 X10^3/uL (2.7-7.7); Neutrophil % 77.2 % (47-70); POSITIVE COUNT NO; POSITIVE DIFFERENTIAL NO; POSITIVE MORPHOLOGY NO; Platelet Count 261 K/mm3 (150-450); RBC Distribution Width CV 13.6 % (11.6-14.6); Red Blood Count 4.63 M/mm3 (4.6-6.2); White Blood Count 10.6 K/mm3 (4.4-11.0)
[2018-07-03 18:56] LABS: Anion Gap 6 (5-15); BUN 19 mg/dL (7-18); BUN/Creat Ratio 13.2 RATIO (10-20); Calcium,Total 8.4 mg/dL (8.5-10.1); Chloride 103 mmol/L (98-107); Creatinine, Serum 1.44 mg/dL (0.70-1.30); EST Glomerular Filtration Rate 54 mL/min (>60); Est Glom Filt Rate - Afr Amer 65 mL/min (>60); Estimated Creatinine Clearance 63.96 ml/min; Glucose 227 mg/dL (74-106); Potassium 4.3 mmol/L (3.5-5.1); Sodium Level 138 mmol/L (136-145)
[2018-07-03 19:07] LABS: Lactic Acid 1.9 mmol/L (0.4-2.0)
[2018-07-03] MEDS: 0.9% Normal Saline 1,000 ML 999 ML IV (20:12)
--- NOTE | 2018-07-03 21:04 | ED.DCSUM_ITS ---
- ER Visit Summary Date of Service: 07/03/18 Chief Complaint: Lightheaded History of Present Illness: The patient is a [address] Arroyo. He is a poor informant. Patient presents complaining that he is lightheaded. It worsens when he stands. He has not passed out. He also complains of generalized weakness. Denies any other complaints. Physical Examination: Vitals: 95.4, 72/49, 69, 12, 100% on room air which is not hypoxic. General: Well-nourished and well-developed. Head: Normocephalic atraumatic. Neck: Supple, no lymphadenopathy. No JVD. Nontender. Cardiovascular: Regular rate and rhythm. No murmurs. Respiratory: No respiratory distress. Clear to auscultation bilaterally. Abdominal: Soft, nontender, nondistended, normal bowel sounds. No guarding, rebound, or peritoneal signs. Back: Nontender. Extremities: Nontender, no edema. Skin: Normal color, no rash. Neurologic: Alert and oriented ?3. Cranial nerves II through XII are intact. Normal strength and sensation. Psych: Depressed affect. Test Results: EKG is sinus at 67 with T wave inversions over the precordium as well as in leads I and aVL. These T wave inversions are new since last month. Initial troponin 0 0.022. Chem-7 is more for BUN of 19, creatinine 1.44, calcium of 8.4. Lactic acid is 1.9. CBC is marked for 7 neutrophils 77 lymphocytes of 15. Chest x-ray shows no acute disease. Emergency Department Course and Treatment: Patient was given 2 L of normal saline IV and his pressure has increased into the 130s systolic. Due to the new T wave inversions patient was given aspirin p.o. I reviewed his prior records. He had a heart catheterization in May of this year that showed him to have an 85% diagonal stenosis as well as a occluded stent in the RCA and distal RCA subtotally occluded. He did not have stents placed at that time because of his history of medical noncompliance. Currently he is denying chest pain. Treatment Plan: The patient was discussed with Dr. Bains and Dr. Palmer. He will be admitted to the hospital for further evaluation and treatment. Disposition: Admitted in improved condition. Impression: 1. Dehydration. 2. Acute kidney injury. 3. New T wave inversions. 4. Hypotension, resolved. This note was generated with Power-One dictation software. It may contain incorrect words, spelling, and punctuation that were not noted in review of the chart prior to signing ED Disposition - Plan for ED Patient: Chief Complaint: Fatigue Referrals: Rosario Arroyo DO [Primary Care Provider] -
--- NOTE | 2018-07-03 21:06 | PCM.HP.STD ---
Problem List (1) Hypotension Status: Acute (2) Abnormal EKG Status: Acute (3) RASHAWN (acute kidney injury) Status: Acute (4) HTN (hypertension) Status: Chronic Qualifiers: Hypertension type: essential hypertension Qualified Code(s): I10 - Essential (primary) hypertension (5) Uncontrolled type 2 diabetes mellitus Status: Chronic (6) Smokeless tobacco use Status: Chronic History of Present Illness Date of Admission: 07/03/18 Chief Complaint: Generalized weakness The patient is a 57 year old M with a significant history of hypertension, diabetes mellitus type 2, CAD status post stents and still with 85% stenosis proximal diagonal; medical noncompliance who presented with generalized weakness and near fall. Patient reported that on the day of admission he noticed that he has been weak all day. He went to an auction and was getting up and was about to fall. Subsequently he was brought to the emergency department. At emergency department his blood pressure was noted to be severely low but he responded to IV fluids. Patient reported to me that he took his blood pressure medication but he did not take his metformin or insulin today. However he reported to the emergency department doctor that he took his medication for diabetes today. Cardiology was consulted because patient had a T wave inversion in precordial leads which was new. Per conversation between ED doctor and senior quality assurance engineer; recommendations are to trend troponin; and Dr. Wilkins who is very familiar with patient will follow up patient in a.m. . At the ED; patient was noted to have severely elevated creatinine above his baseline. Past Medical History Past Medical History (Chronic Problems): Chronic Problems (Last Reviewed 07/03/18 @ 21:49 by Anil Palmer MD) Tobacco chew use (Chronic) PFO (patent foramen ovale) (Chronic) Diabetes (Chronic) HTN (hypertension) (Chronic) Hyperlipidemia (Chronic) Smokeless tobacco use (Chronic) Uncontrolled type 2 diabetes mellitus (Chronic) CAD (coronary artery disease) (Chronic) Acute cerebrovascular accident of cerebellum (Chronic) CVA (cerebral vascular accident) (Chronic) S/P PTCA (percutaneous transluminal coronary angioplasty) (Chronic) Noncompliance with medication regimen (Chronic) Medical History: Medical History (Last Reviewed 07/04/18 @ 01:38 by Anil Palmer MD) Chest pain at rest (Acute) R07.9 Tobacco chew use (Chronic) Z72.0 RASHAWN (acute kidney injury) (Acute) N17.9 Chest pain (Acute) R07.9 Abnormal stress test (Acute) R94.39 PFO (patent foramen ovale) (Chronic) Q21.1 Diabetes (Chronic) E11.9 HTN (hypertension) (Chronic) I10 Hyperlipidemia (Chronic) E78.5 Smokeless tobacco use (Chronic) Z72.0 Uncontrolled type 2 diabetes mellitus (Chronic) E11.65 CAD (coronary artery disease) (Chronic) I25.10 Acute cerebrovascular accident of cerebellum (Chronic) I63.9 CVA (cerebral vascular accident) (Chronic) I63.9 Noncompliance with medication regimen (Chronic) Z91.14 Allergies ampicillin Allergy (Verified 07/03/18 18:07) Swelling ibuprofen [From Motrin] Allergy (Verified 07/03/18 18:07) Swelling SEA FOOD Allergy (Uncoded 07/03/18 18:07) Swelling Home Medications: Ambulatory Orders Medication Instructions Recorded Doxepin HCl 20 mg PO QHS 09/18/17 Oxycodone HCl/Acetaminophen 10 - 325 mg PO Q6H PRN PRN 09/18/17 [Percocet 10-325 mg Tablet] Atorvastatin Calcium [Lipitor] 80 mg PO QHS #30 tab 09/20/17 Aspirin E.C. [Ecotrin] 81 mg PO DAILY@0800 #90 tab 05/21/18 Metoprolol Tartrate [Lopressor 50 mg PO BID #90 tab 05/21/18 (beta nanette)] Amlodipine [Norvasc] 10 mg PO DAILY #30 tab 05/22/18 Isosorbide Mononitrate [Imdur] 30 mg PO DAILY #30 tab 05/22/18 Lisinopril [Zestril] 20 mg PO BID #30 tab 05/22/18 Nitroglycerin [Nitrostat] 0.4 mg SUBLINGUAL Q5M PRN #10 tab 05/22/18 Surgical History: Surgical History (Last Reviewed 07/04/18 @ 01:38 by Anil Palmer MD) S/P PTCA (percutaneous transluminal coronary angioplasty) (Chronic) Z98.61 Surgical History: angioplasty, - - PCI, ankle, hip surgery, stomach surgery, neck surgery. Psychiatric History: No pertinent psych hx Smoking Status: Current every day smoker Tobacco Use: Vapor Alcohol: None - *Family History Maternal History Items: Diabetes Paternal History Items: Heart Disease Sibling History Items: Heart Disease - CAD Review of Systems Constitutional: Reports: Weakness. Denies: Chills, Fever, Weight Change Eyes: Denies: Blurred vision, Drainage HEENT: Denies: Head Aches, Sinus Congestion, Sinus Drainage Cardiovascular: Denies: Chest Pain, Palpitations Respiratory: Denies: Cough, Shortness of breath at rest, Sputum production Gastrointestinal: Denies: Abdominal Pain, Nausea, Vomiting Genitourinary: Denies: Dysuria Musculoskeletal: Denies: Joint Pain, Joint Tenderness Skin: Denies: Rash, Wounds Neurological: Denies: Numbness, Tingling, Focal weakness Psychiatric: Denies: Anxiety, Depression, Homicidal Ideations, Suicidal Ideations Hematologic/ Lymphatic: Denies: Easy Bruising, Easy Bleeding VTE Information - Inpt Only VTE Present on Admission: No VTE Pharm Prophylaxis ordered?: Yes Patient Problems: Active and Suspected Problems (Last Reviewed 07/03/18 @ 21:49 by Anil Palmer MD) Hypotension (Acute) Abnormal EKG (Acute) - Physical Exam General: Alert, Oriented x3, Cooperative HEENT: Atraumatic, PERRLA, EOMI, Normocephalic Neck: Supple, No JVD, Negative Carotid Bruits Lungs: Clear to auscultation, Normal air movement Cardiovascular: Regular rate, No murmurs Abdomen: Bowel Sounds Present, Soft, Non Tender Extremities: No edema, Capillary Refill Less than 3 Seconds Skin: No rashes, No breakdown Musculoskeletal: No Tenderness to Palpation of Joints or Extremities Neurological: Cranial nerves II-XII grossly intact Psych/Mental Status: Normal Affect, Appropriate Vital Signs Temp Pulse Resp BP Pulse Ox 95.4 F L 63 16 112/82 H 99 07/03/18 18:07 07/03/18 20:15 07/03/18 20:15 07/03/18 20:15 07/03/18 20:15 Oxygen Delivery Method Room Air Weight: 83.915 kg Body Mass Index (BMI) 24.4 Finger Stick Blood Glucose 391 Laboratory Tests Past 24 Hrs 07/03/18 07/03/18 07/03/18 18:18 18:18 18:37 WBC 10.6 RBC 4.63 Hgb 13.8 Hct 42.2 MCV 91.1 MCH 29.8 MCHC 32.7 RDW 13.6 RDW Differential 45.0 H Plt Count 261 MPV 11.1 Immature Gran % (Auto) 0.200 Neut % (Auto) 77.2 H Lymph % (Auto) 14.6 L [place] % (Auto) 6.1 Eos % (Auto) 1.5 Baso % (Auto) 0.4 Absolute Neuts (auto) 8.2 H Absolute Lymphs (auto) 1.54 Total Counted Not Reportable Sodium 138 Potassium 4.3 Chloride 103 Carbon Dioxide 29.0 Anion Gap 6 BUN 19 H Creatinine 1.44 H Estim Creat Clear Calc 63.96 Est GFR (MDRD) Af Amer 65 Est GFR (MDRD) Non-Af 54 L BUN/Creatinine Ratio 13.2 Glucose 227 H Lactic Acid 1.9 Calcium 8.4 L Troponin I 0.022 POC Glucose 07/03/18 18:16 POC Glucose 186 H Assessment/Plan All Active Problems (Last Reviewed 07/03/18 @ 21:49 by Anil Palmer MD) Hypotension (Acute) Abnormal EKG (Acute) Chest pain at rest (Acute) RASHAWN (acute kidney injury) (Acute) Chest pain (Acute) Abnormal stress test (Acute) The patient is a 57 year old M with a significant history of hypertension, diabetes mellitus type 2, CAD status post stents and still with 85% stenosis in proximal diagonal artery; medical noncompliance who presented with generalized weakness and near fall and found to have hypotension; hyperglycemia and elevated creatinine above his baseline; and significant EKG changes. RASHAWN His creatinine was 1.44. His baseline creatinine is is about 1. BUN over creatinine is 13.2. Urinary sodium and urine creatinine ordered. Gentle IV hydration. Avoid nephrotoxins. Generalized weakness and near fall This could be due to hypovolemia. Orthostatic blood pressure Vitamin B12 within normal range. Low Vitamin D level; supplementation ordered. PT and OT to work with patient on strengthening and balance. Hypotension This could be due to poor intake and osmotic diuresis from hyperglycemia. Less likely from overdose from antihypertensive medication. His sodium is within normal range. Patient responded to fluid. Normal saline IV hydration continued. Patient during his course of stay has become hypertensive emergency patient anti-hypertensive medications to be restarted. We will continue IV hydration for RASHAWN Diabetes mellitus type 2 On admission blood glucose was uncontrolled, but later and without any intervention his blood glucose fell into the normal range. Reportedly he takes metformin; as well as basal and prandial or correction scale insulin at home. We will hold her metformin since it is too early in his admission. Correction scale insulin ordered. Importantly patient will be n.p.o. until cardiology sees him. Abnormal EKG Independent review of EKG showed T wave flattening in leads II; and T wave inversion in leads III; aVF; V1; V2; V3; V4; V5; and V6. Review of old records showed a EKG on May 21, 2018 did not have these T wave abnormalities. Received aspirin 325 emergency department. Baby aspirin daily Home high intensity statin continued First troponin in the ED was unremarkable. Trend troponin. Cardiology consult. Hypertension. During the course of his stay his blood pressure elroy above the normal range On his med profile is a couple of blood pressure medications. Will start him on only Norvasc for now; and add prn Hydralazine IV. Trend BP. Tobacco abuse Patient reportedly smokes smokeless tobacco Consult to smoking cessation. Declined nicotine patch CAD Reports history of stents. Review of old records showed that on 05/21/2018 cardiac cath showed 85% stenosis in proximal diagonal. Continue baby aspirin and high intensity statin as above. DVT prophylaxis Subcutaneous Lovenox. Code Visit OBSV E&M: [id number] Initial observation care L3
--- NOTE | 2018-07-03 22:16 | EKG12_ITS ---
Test Reason : CP Blood Pressure : / mmHG Vent. Rate : 074 BPM Atrial Rate : 074 BPM P-R Int : 172 ms QRS Dur : 086 ms QT Int : 398 ms P-R-T Axes : 040 024 030 degrees QTc Int : 441 ms Normal sinus rhythm Nonspecific T wave abnormality Abnormal ECG Confirmed by JOELLE GAXIOLA, AMRITA ([id number]), editor at large KARISSA ELENA ([id number]) on 07/08/2018 10:54:31 AM Referred By: MAGGIE Confirmed By:AMRITA LAI MD
[2018-07-03 22:22] LABS: Bacteria 0 SEEN /hpf (None Seen); Mucous, Urine 0 SEEN /hpf (<or=2+); Red Blood Cells-Urine 0 SEEN /hpf (0-5); White Blood Cells 0 SEEN /hpf (0-5)
[2018-07-03 22:26] LABS: Color, Urine Yellow (Yellow); Glucose, Dipstick 100 mg/dl (Normal); Ketone-Dipstick Negative (Negative); Leukocyte Esterase-Dipstick Negative /ul (Negative); Nitrite-Dipstick Negative (Negative); Occult Blood-Urine Negative /ul (Negative); Protein-Dipstick 30 mg/dl (Negative); Urine Bilirubin Dipstick Negative (Negative); Urine Clarity Clear (Clear); Urine Urobilinogen Normal (Normal)
[2018-07-03 22:36] LABS: Squamous Epithelial Cells - UA 0-5 SEEN /hpf (0-5)
[2018-07-03] MEDS: Atorvastatin Calcium 80 MG Tablet PO (22:38)
[2018-07-03] MEDS: 0.9% Normal Saline 1,000 ML 75 ML IV (22:38)
[2018-07-03 22:54] LABS: Vitamin B12 360 pg/mL (211-911); Vitamin D,25 Hydroxy 17.1 ng/mL (29.95-100.01)
[2018-07-03 23:21] LABS: Bedside Glucose 105 mg/dL (70-110)
[2018-07-03] MEDS: Doxepin Hydrochloride 10 MG Capsule 20 MG PO (23:47)
[2018-07-04] VITALS (16 sets, daily range): BP systolic 146–168; BP diastolic 74–144; PULSE 69–92; RESP 16–17; TEMP 36.3–36.6; O2SAT 92–98
[2018-07-04 05:35] LABS: Hematocrit 38.5 % (40-54); Hemoglobin 12.9 g/dl (13.0-16.5); Mean Corp Hgb Conc 33.5 g/gl (32-36); Mean Corpuscular Hgb 30.4 pg (27.0-32.0); Mean Corpuscular Volume 90.8 fL (80-94); Mean Platelet Vol. 10.9 fl (6.2-12.0); Platelet Count 213 K/mm3 (150-450); RBC Distribution Width CV 13.4 % (11.6-14.6); Red Blood Count 4.24 M/mm3 (4.6-6.2)
[2018-07-04 05:42] LABS: Scan Indicated on CBC? Y/N NO
[2018-07-04 05:45] LABS: Anion Gap 5 (5-15); BUN 16 mg/dL (7-18); BUN/Creat Ratio 15.4 RATIO (10-20); Calcium,Total 7.9 mg/dL (8.5-10.1); Chloride 109 mmol/L (98-107); Creatinine, Serum 1.04 mg/dL (0.70-1.30); EST Glomerular Filtration Rate 78 mL/min (>60); Est Glom Filt Rate - Afr Amer 94 mL/min (>60); Estimated Creatinine Clearance 88.56 ml/min; Glucose 128 mg/dL (74-106); Potassium 3.8 mmol/L (3.5-5.1); Sodium Level 143 mmol/L (136-145)
[2018-07-04 05:46] LABS: Prothrombin Time (Protime)PT. 13.1 SECONDS (11.7-14.9)
[2018-07-04 06:55] LABS: Bedside Glucose 120 mg/dL (70-110)
--- NOTE | 2018-07-04 06:57 | EKG12_ITS ---
Test Reason : DIZZY Blood Pressure : / mmHG Vent. Rate : 067 BPM Atrial Rate : 067 BPM P-R Int : 168 ms QRS Dur : 090 ms QT Int : 438 ms P-R-T Axes : -02 019 187 degrees QTc Int : 462 ms Normal sinus rhythm T wave abnormality, consider anterolateral ischemia Prolonged QT Abnormal ECG Confirmed by MILLI GAXIOLA, TYLOR ([id number]), editor & co founder KARISSA ELENA ([id number]) on 07/08/2018 12:33:13 PM Referred By: FAY Confirmed By:TYLOR MORLEY MD
[2018-07-04 07:14] LABS: Partial Thromboplast Time 29.5 Seconds (24.1-36.2)
--- NOTE | 2018-07-04 08:18 | CASEMGMT ---
According to the [facility] website, the following are in-network tertiary facilities: [facility], [place], [facility], [facility], [facility], [facility], and . [employer] PRABHAKAR CM
--- NOTE | 2018-07-04 08:52 | PCM.CONS.C ---
Problem List (1) Abnormal EKG Status: Acute (2) CAD (coronary artery disease) Status: Chronic Qualifiers: Coronary Disease-Associated Artery/Lesion type: [place] artery [place] vs. transplanted heart: [place] heart Associated angina: without angina Qualified Code(s): I25.10 - Atherosclerotic heart disease of [place] coronary artery without angina pectoris (3) S/P PTCA (percutaneous transluminal coronary angioplasty) Status: Chronic (4) Hyperlipidemia Status: Chronic Qualifiers: Hyperlipidemia type: pure hypercholesterolemia Qualified Code(s): E78.00 - Pure hypercholesterolemia, unspecified; E78.0 - Pure hypercholesterolemia (5) HTN (hypertension) Status: Chronic Qualifiers: Hypertension type: essential hypertension Qualified Code(s): I10 - Essential (primary) hypertension (6) Diabetes Status: Chronic Qualifiers: Diabetes mellitus type: type 2 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 Diabetes mellitus complication status: with unspecified complications Qualified Code(s): E11.8 - Type 2 diabetes mellitus with unspecified complications; Z79.4 - long term (current) use of insulin; Z79.4 - shelter (current) use of insulin; Z79.4 - long term (current) use of insulin; Z79.4 - shelter (current) use of insulin (7) Hypotension Status: Acute (8) RASHAWN (acute kidney injury) Status: Acute (9) Noncompliance with medication regimen Status: Chronic Reason for Consult Date of Consultation: 07/04/18 History of Present Illness: The patient is a 57 year old white male with a past cardiovascular history of underlying CAD, RCA PCI-occluded, hyperlipidemia, hypertension, diabetes mellitus, medication noncompliance, who presents for concerns of hypotension and acute renal insufficiency. He was previously evaluated at [facility] on 05/21/2018 for concerns of underlying chest discomfort and an abnormal exercise tolerance test/imaging study. He subsequently underwent diagnostic cardiac catheterization. The results are as noted below. He was recommended for medical management to document medication compliance and then consideration for future PCI. In the interim, at home, he states he has been noncompliant with his medications. He states he chooses not to take his medications. He has presented back to the hospital for concerns of generalized weakness. He was found to be hypotensive with elevated creatinine level. There were concerns of decreased intravascular volume. Again the patient was unclear as to which medicines he had taken and when he had taken them. He denied any ongoing chest discomfort or difficulty breathing. He denied any nausea, emesis, or diaphoresis. He states that he did not lose consciousness. In the emergency department he had cardiac enzymes performed which were negative. They have remained negative. He had an ECG performed which demonstrated sinus rhythm with T wave changes in the anterolateral distribution concerning for myocardial ischemia. He was placed in the PCU for further evaluation and care. His cardiac rhythm has remained sinus rhythm. His cardiac enzymes have remained negative. His T wave changes have resolved to baseline as his blood pressure has improved to the point of now becoming hypertensive. Status post IV fluids his creatinine level has improved. [] Past Medical History Allergies/Adverse Reactions: Allergies ampicillin Allergy (Verified 07/03/18 18:07) Swelling ibuprofen [From Motrin] Allergy (Verified 07/03/18 18:07) Swelling SEA FOOD Allergy (Uncoded 07/03/18 18:07) Swelling Home Medications: Ambulatory Orders Medication Instructions Recorded Doxepin HCl 20 mg PO QHS 09/18/17 Oxycodone HCl/Acetaminophen 10 - 325 mg PO Q6H PRN PRN 09/18/17 [Percocet 10-325 mg Tablet] Atorvastatin Calcium [Lipitor] 80 mg PO QHS #30 tab 09/20/17 Aspirin E.C. [Ecotrin] 81 mg PO DAILY@0800 #90 tab 05/21/18 Metoprolol Tartrate [Lopressor 50 mg PO BID #90 tab 05/21/18 (beta nanette)] Amlodipine [Norvasc] 10 mg PO DAILY #30 tab 05/22/18 Isosorbide Mononitrate [Imdur] 30 mg PO DAILY #30 tab 05/22/18 Lisinopril [Zestril] 20 mg PO BID #30 tab 05/22/18 Nitroglycerin [Nitrostat] 0.4 mg SUBLINGUAL Q5M PRN #10 tab 05/22/18 Past Medical History (Chronic Problems): Chronic Problems (Last Reviewed 07/04/18 @ 01:38 by Anil Palmer MD) Tobacco chew use (Chronic) PFO (patent foramen ovale) (Chronic) Diabetes (Chronic) HTN (hypertension) (Chronic) Hyperlipidemia (Chronic) Smokeless tobacco use (Chronic) Uncontrolled type 2 diabetes mellitus (Chronic) CAD (coronary artery disease) (Chronic) Acute cerebrovascular accident of cerebellum (Chronic) CVA (cerebral vascular accident) (Chronic) S/P PTCA (percutaneous transluminal coronary angioplasty) (Chronic) Noncompliance with medication regimen (Chronic) Surgical History: angioplasty, - - PCI, ankle, hip surgery, stomach surgery, neck surgery. Psychiatric History: No pertinent psych hx - *Family History Maternal History Items: Diabetes Paternal History Items: Heart Disease Sibling History Items: Heart Disease - CAD Lives: Alone Smoking Status: Current every day smoker Tobacco Use: Vapor Alcohol: None Drugs: None Review of Systems - Review of Systems General: Reports: Weakness. Denies: Fever, Fatigue, Night Sweats Cardiovascular: Denies: Chest Discomfort, Shortness of Breath, Orthopnea, PND, Peripheral Edema, Palpitations, Lightheadedness, Dizziness, Near Syncope, Syncope Respiratory: Denies: Cough, Sputum Production, Hemoptysis Gastrointestinal: Denies: Hematemesis, Hematochezia, Melena Genitourinary: Denies: Dysuria, Hematuria Skin: Denies: Rash Subjectve: This is a 57-year-old white male who appears to be resting comfortably at this time in no acute distress. Objective: Vital Signs Temp Pulse Resp BP Pulse Ox 97.6 F L 76 16 162/74 H 92 07/04/18 04:54 07/04/18 07:13 07/04/18 04:54 07/04/18 05:01 07/04/18 07:45 Oxygen Delivery Method Room Air Weight: 186 lb 8.177 oz Body Mass Index (BMI) 24.5 Finger Stick Blood Glucose 391 Orthostatic Vital Signs Start: 07/04/18 05:01 Freq: q24h Status: Active Protocol: Activity Type Activity Date Activity User E-Sign Co-Sign Detail Recorded Client Recorded Date Recorded By Document 07/04/18 05:01 [facility] [id number] 07/04/18 05:05 [facility] 07/04/18 05:01 Orthostatic Vitals Standing -Blood Pressure (90/60-120/80 mm Hg) 168/144 H -Extremity Use Right Arm -Pulse Rate (60-100 beats/min) 81 Sitting -Blood Pressure (90/60-120/80 mm Hg) 157/100 H -Extremity Use Right Arm -Pulse Rate (60-100 beats/min) 79 Lying -Blood Pressure (90/60-120/80 mm Hg) 162/74 H -Extremity Use Right Arm -Pulse Rate (60-100 beats/min) 74 Intake and Output for Last 24 Hours 07/02/18 07/03/18 07/04/18 23:59 23:59 23:59 Intake Total 327.4 / 327.4 399 / 399 Balance 327.4 / 327.4 399 / 399 General: Awake, Alert, Oriented x 3, Cooperative, No Acute Distress HEENT: Atraumatic, Normocephalic, PERRL, EOMI, Sclera Non Icteric Oral: Moist Mucosa Neck: Supple, Good ROM, No JVD Lungs: Clear to auscultation Cardiovascular: Regular Rhythm, Normal S1, Normal S2 Vascular: No Carotid Bruits Abdomen: Bowel Sounds Present, Soft, Non Tender Extremities: No Cyanosis, No Clubbing, No edema Psych/Mental Status: Flat Affect 07/03/18 18:18: WBC 10.6, RBC 4.63, Hgb 13.8, Hct 42.2, MCV 91.1, MCH 29.8, MCHC 32.7, RDW 13.6, RDW Differential 45.0 H, Plt Count 261, MPV 11.1, Immature Gran % (Auto) 0.200, Neut % (Auto) 77.2 H, Lymph % (Auto) 14.6 L, [place] % (Auto) 6.1, Eos % (Auto) 1.5, Baso % (Auto) 0.4, Absolute Neuts (auto) 8.2 H, Total Counted Not Reportable 07/03/18 18:18: Sodium 138, Potassium 4.3, Chloride 103, Carbon Dioxide 29.0, Anion Gap 6, BUN 19 H, Creatinine 1.44 H, Est GFR (MDRD) Af Amer 65, Est GFR (MDRD) Non-Af 54 L, BUN/Creatinine Ratio 13.2, Glucose 227 H, Calcium 8.4 L, Troponin I 0.022 07/03/18 18:37: Lactic Acid 1.9 07/03/18 22:05: Urine Color Yellow, Urine Clarity Clear, Urine pH 6.0, Ur Specific [place] 1.020, Urine Protein 30 H, Urine Glucose (UA) 100 H, Urine Ketones Negative, Urine Occult Blood Negative, Urine Nitrite Negative, Urine Bilirubin Negative, Urine Urobilinogen Normal, Ur Leukocyte Esterase Negative, Urine RBC 0 SEEN, Urine WBC 0 SEEN 07/03/18 22:48: Troponin I 0.023 07/04/18 01:22: Troponin I 0.023 07/04/18 05:08: WBC 7.0, RBC 4.24 L, Hgb 12.9 L, Hct 38.5 L, MCV 90.8, MCH 30.4, MCHC 33.5, RDW 13.4, RDW Differential 44.0 H, Plt Count 213, MPV 10.9 07/04/18 05:08: PT 13.1, INR 1.0 07/04/18 05:08: Sodium 143, Potassium 3.8, Chloride 109 H, Carbon Dioxide 29.0, Anion Gap 5, BUN 16, Creatinine 1.04, Est GFR (MDRD) Af Amer 94, Est GFR (MDRD) Non-Af 78, BUN/Creatinine Ratio 15.4, Glucose 128 H, Calcium 7.9 L, Troponin I 0.030 07/04/18 05:08: APTT 29.5 Rhythm: Sinus rhythm EKG: As noted above ECHO: 06/21/2018: Left ventricular regional wall motion abnormalities; LVEF reported at 45%; severe left atrial enlargement; trivial MR; trivial TR; estimated RV systolic pressure of 26 mmHg Stress Test: 05/21/2018: Pharmacologic stress nuclear imaging study: Myocardial perfusion changes appearing compatible with an area of previous myocardial injury/infarction involving the basal to mid lateral segment with post stress myocardial perfusion changes appearing compatible with mild erum-infarct related myocardial ischemia with a gated LVEF of 36% Cardiac Cath: 05/21/2018 CONCLUSIONS Elevated Left Ventricular End Diastolic Pressure Segmented LV systolic dysfunction- Mild LVEF: by LV gram 50 % [place] Multivessel CAD RECOMMENDATIONS Risk factor modification Medical therapy Comment: If the patient demonstrates medication compliance then would consider referral to interventional cardiology for consideration of PCI to the DX system CORONARY ANGIOGRAPHY DOMINANCE: Co- Dominant LEFT HEART ASSESSMENT Left Ventricular Ejection Fraction: by LV Gram 50 % Inferior Basal Hypokinesis Elevated Left Ventricular End Diastolic Pressure LVEDP: 36 mmHg LEFT MAIN: Angiographically normal LEFT ANTERIOR DESCENDING ARTERY: PROX LAD: Eccentric: 25 % Stenosis MID LAD: Mild luminal irregularities DIAGONAL 1: Proximal - serial 85 % Stenosis CIRCUMFLEX ARTERY: Mild luminal irregularities RIGHT CORONARY ARTERY: DISTAL RCA: subtotally occluded, Previously placed stent is occluded VALVE FINDINGS: Normal Aortic Valve function Normal Mitral Valve function AORTIC ROOT: Angiographically normal CXR: Preliminary evaluation: No acute cardiopulmonary disease process Assessment/Plan 1. Abnormal ECG The patient has demonstrated dynamic ECG changes with respect to T wave abnormalities in the anterolateral distribution. These may have been brought out by the patient's hypotension superimposed upon the patient's underlying coronary artery disease process. As the patient has improved with respect to his blood pressure is T wave changes appear to have normalized. In the interim the patient's cardiac enzymes/troponin I levels have remained negative. At the present time the patient will continue to be monitored. He will reinitiate medical therapy deemed appropriate for his cardiovascular status. Ideally the patient would be considered, as in May of this year, for PCI of his LAD/diagonal branch system, however, as in May, there is concern with proceeding with this endeavor when the patient remains noncompliant with his medication. There is a risk of proceeding with PCI/stent requiring antiplatelet therapy and the patient not taking medications as prescribed and subsequently being at increased risk for acute stent thrombosis and an acute coronary syndrome. This has been discussed with the patient. This was discussed with the patient and his brother during his May evaluation. Thus the patient can be placed back on appropriate medications. Ideally, as in May, he would have to demonstrate medication compliance prior to proceeding to coronary artery PCI for the concerns noted above. 2. CAD status post RCA PCI-remote As noted above the patient has had previous CAD and RCA PCI. Based upon his most recent diagnostic cardiac catheterization his RCA PCI/stent appears to be chronically occluded. He does have underlying LAD/diagonal branch disease. At the present time he has not demonstrated evidence of acute coronary syndrome by cardiac enzymes. He is without acute symptoms at this time. He will reinitiate medical management. His case can be reviewed with interventional cardiology with respect to their opinion on his case, medication noncompliance, and need for future PCI. 3. Hyperlipidemia The patient should continue medical management to modify his cardiovascular risks. 4. Hypertension The patient will need to continue appropriate antihypertensive therapy. 5. Diabetes mellitus The patient will continue under the care of internal medicine for this. 6. Hypotension Again the patient is unclear as to what medications he has or has not taken as he readily admits he has not been taking his medications as prescribed. He presented with hypotension and elevated creatinine levels. This does raise concern of decreased intravascular volume. He has responded to IV fluids. He will need to be monitored with respect to his vital signs, creatinine level, etc. 7. Acute renal insufficiency Again this may be secondary to volume shifts based upon his response to IV fluids. He will continue to be followed. His medications will need to be adjusted in and around the time of his acute renal insufficiency. Hopefully over time he can resume medications which may benefit his cardiovascular status which would include agents such as DAMIÁN inhibitors or ARB's which she has been on in the past. 8. Medication noncompliance Again there is concern about the patient readily admitting that he does not take his medications as prescribed and how that impacts his underlying medical condition and need for future cardiovascular procedures, etc. Comment: The patient's case has been discussed and reviewed with Dr. Krueger. This note was generated with [employer] dictation software. It may contain incorrect words, spelling, and punctuation that were not noted in checking the note before signing.
--- NOTE | 2018-07-04 08:57 | CON.PCM_ITS ---
Problem List (1) Abnormal EKG Status: Acute (2) CAD (coronary artery disease) Status: Chronic Qualifiers: Coronary Disease-Associated Artery/Lesion type: [place] artery [place] vs. transplanted heart: [place] heart Associated angina: without angina Qualified Code(s): I25.10 - Atherosclerotic heart disease of [place] coronary artery without angina pectoris (3) S/P PTCA (percutaneous transluminal coronary angioplasty) Status: Chronic (4) Hyperlipidemia Status: Chronic Qualifiers: Hyperlipidemia type: pure hypercholesterolemia Qualified Code(s): E78.00 - Pure hypercholesterolemia, unspecified; E78.0 - Pure hypercholesterolemia (5) HTN (hypertension) Status: Chronic Qualifiers: Hypertension type: essential hypertension Qualified Code(s): I10 - Essential (primary) hypertension (6) Diabetes Status: Chronic Qualifiers: Diabetes mellitus type: type 2 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: with shelter use Diabetes mellitus complication status: with unspecified complications Qualified Code(s): E11.8 - Type 2 diabetes mellitus with unspecified complications; Z79.4 - computer terminal operator (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) use of insulin; Z79.4 - custodial (current) use of insulin; Z79.4 - computer terminal operator (current) use of insulin; Z79.4 - custodial (current) use of insulin (7) Hypotension Status: Acute (8) RASHAWN (acute kidney injury) Status: Acute (9) Noncompliance with medication regimen Status: Chronic Reason for Consult Date of Consultation: 07/04/18 History of Present Illness: The patient is a 57 year old white male with a past cardiovascular history of underlying CAD, RCA PCI-occluded, hyperlipidemia, hypertension, diabetes mellitus, medication noncompliance, who presents for concerns of hypotension and acute renal insufficiency. He was previously evaluated at [facility] on 05/21/2018 for concerns of underlying chest discomfort and an abnormal exercise tolerance test/imaging study. He subsequently underwent diagnostic cardiac catheterization. The results are as noted below. He was recommended for medical management to document medication compliance and then consideration for future PCI. In the interim, at home, he states he has been noncompliant with his medications. He states he chooses not to take his medications. He has presented back to the hospital for concerns of generalized weakness. He was found to be hypotensive with elevated creatinine level. There were concerns of decreased intravascular volume. Again the patient was unclear as to which medicines he had taken and when he had taken them. He denied any ongoing chest discomfort or difficulty breathing. He denied any nausea, emesis, or diaphoresis. He states that he did not lose consciousness. In the emergency department he had cardiac enzymes performed which were negative. They have remained negative. He had an ECG performed which demonstrated sinus rhythm with T wave changes in the anterolateral distribution concerning for myocardial ischemia. He was placed in the PCU for further e valuation and care. His cardiac rhythm has remained sinus rhythm. His cardiac enzymes have remained negative. His T wave changes have resolved to baseline as his blood pressure has improved to the point of now becoming hypertensive. Status post IV fluids his creatinine level has improved. [] Past Medical History Allergies/Adverse Reactions: Allergies ampicillin Allergy (Verified 07/03/18 18:07) Swelling ibuprofen [From Motrin] Allergy (Verified 07/03/18 18:07) Swelling SEA FOOD Allergy (Uncoded 07/03/18 18:07) Swelling Home Medications: Ambulatory Orders Medication Instructions Recorded Doxepin HCl 20 mg PO QHS 09/18/17 Oxycodone HCl/Acetaminophen 10 - 325 mg PO Q6H PRN PRN 09/18/17 [Percocet 10-325 mg Tablet] Atorvastatin Calcium [Lipitor] 80 mg PO QHS #30 tab 09/20/17 Aspirin E.C. [Ecotrin] 81 mg PO DAILY@0800 #90 tab 05/21/18 Metoprolol Tartrate [Lopressor 50 mg PO BID #90 tab 05/21/18 (beta nanette)] Amlodipine [Norvasc] 10 mg PO DAILY #30 tab 05/22/18 Isosorbide Mononitrate [Imdur] 30 mg PO DAILY #30 tab 05/22/18 Lisinopril [Zestril] 20 mg PO BID #30 tab 05/22/18 Nitroglycerin [Nitrostat] 0.4 mg SUBLINGUAL Q5M PRN #10 tab 05/22/18 Past Medical History (Chronic Problems): Chronic Problems (Last Reviewed 07/04/18 @ 01:38 by Anil Palmer MD) Tobacco chew use (Chronic) PFO (patent foramen ovale) (Chronic) Diabetes (Chronic) HTN (hypertension) (Chronic) Hyperlipidemia (Chronic) Smokeless tobacco use (Chronic) Uncontrolled type 2 diabetes mellitus (Chronic) CAD (coronary artery disease) (Chronic) Acute cerebrovascular accident of cerebellum (Chronic) CVA (cerebral vascular accident) (Chronic) S/P PTCA (percutaneous transluminal coronary angioplasty) (Chronic) Noncompliance with medication regimen (Chronic) Surgical History: angioplasty, - - PCI, ankle, hip surgery, stomach surgery, neck surgery. Psychiatric History: No pertinent psych hx - *Family History Maternal History Items: Diabetes Paternal History Items: Heart Disease Sibling History Items: Heart Disease - CAD Lives: Alone Smoking Status: Current every day smoker Tobacco Use: Vapor Alcohol: None Drugs: None Review of Systems - Review of Systems General: Reports: Weakness. Denies: Fever, Fatigue, Night Sweats Cardiovascular: Denies: Chest Discomfort, Shortness of Breath, Orthopnea, PND, Peripheral Edema, Palpitations, Lightheadedness, Dizziness, Near Syncope, Syncope Respiratory: Denies: Cough, Sputum Production, Hemoptysis Gastrointestinal: Denies: Hematemesis, Hematochezia, Melena Genitourinary: Denies: Dysuria, Hematuria Skin: Denies: Rash Subjectve: This is a 57-year-old white male who appears to be resting comfortably at this time in no acute distress. Objective: Vital Signs Temp Pulse Resp BP Pulse Ox 97.6 F L 76 16 162/74 H 92 07/04/18 04:54 07/04/18 07:13 07/04/18 04:54 07/04/18 05:01 07/04/18 07:45 Oxygen Delivery Method Room Air Weight: 186 lb 8.177 oz Body Mass Index (BMI) 24.5 Finger Stick Blood Glucose 391 Orthostatic Vital Signs Start: 07/04/18 05:01 Freq: q24h Status: Active Protocol: Activity Type Activity Date Activity User E-Sign Co-Sign Detail Recorded Client Recorded Date Recorded By Document 07/04/18 05:01 [facility] [id number] 07/04/18 05:05 [facility] 07/04/18 05:01 Orthostatic Vitals Standing -Blood Pressure (90/60-120/80 mm Hg) 168/144 H -Extremity Use Right Arm -Pulse Rate (60-100 beats/min) 81 Sitting -Blood Pressure (90/60-120/80 mm Hg) 157/100 H -Extremity Use Right Arm -Pulse Rate (60-100 beats/min) 79 Lying -Blood Pressure (90/60-120/80 mm Hg) 162/74 H -Extremity Use Right Arm -Pulse Rate (60-100 beats/min) 74 Intake and Output for Last 24 Hours 07/02/18 07/03/18 07/04/18 23:59 23:59 23:59 Intake Total 327.4 / 327.4 399 / 399 Balance 327.4 / 327.4 399 / 399 General: Awake, Alert, Oriented x 3, Cooperative, No Acute Distress HEENT: Atraumatic, Normocephalic, PERRL, EOMI, Sclera Non Icteric Oral: Moist Mucosa Neck: Supple, Good ROM, No JVD Lungs: Clear to auscultation Cardiovascular: Regular Rhythm, Normal S1, Normal S2 Vascular: No Carotid Bruits Abdomen: Bowel Sounds Present, Soft, Non Tender Extremities: No Cyanosis, No Clubbing, No edema Psych/Mental Status: Flat Affect 07/03/18 18:18: WBC 10.6, RBC 4.63, Hgb 13.8, Hct 42.2, MCV 91.1, MCH 29.8, MCHC 32.7, RDW 13.6, RDW Differential 45.0 H, Plt Count 261, MPV 11.1, Immature Gran % (Auto) 0.200, Neut % (Auto) 77.2 H, Lymph % (Auto) 14.6 L, Stanton % (Auto) 6.1, Eos % (Auto) 1.5, Baso % (Auto) 0.4, Absolute Neuts (auto) 8.2 H, Total Counted Not Reportable 07/03/18 18:18: Sodium 138, Potassium 4.3, Chloride 103, Carbon Dioxide 29.0, Anion Gap 6, BUN 19 H, Creatinine 1.44 H, Est GFR (MDRD) Af Amer 65, Est GFR (MDRD) Non-Af 54 L, BUN/Creatinine Ratio 13.2, Glucose 227 H, Calcium 8.4 L, Troponin I 0.022 07/03/18 18:37: Lactic Acid 1.9 07/03/18 22:05: Urine Color Yellow, Urine Clarity Clear, Urine pH 6.0, Ur Specific [place] 1.020, Urine Protein 30 H, Urine Glucose (UA) 100 H, Urine Ketones Negative, Urine Occult Blood Negative, Urine Nitrite Negative, Urine Bilirubin Negative, Urine Urobilinogen Normal, Ur Leukocyte Esterase Negative, Urine RBC 0 SEEN, Urine WBC 0 SEEN 07/03/18 22:48: Troponin I 0.023 07/04/18 01:22: Troponin I 0.023 07/04/18 05:08: WBC 7.0, RBC 4.24 L, Hgb 12.9 L, Hct 38.5 L, MCV 90.8, MCH 30.4, MCHC 33.5, RDW 13.4, RDW Differential 44.0 H, Plt Count 213, MPV 10.9 07/04/18 05:08: PT 13.1, INR 1.0 07/04/18 05:08: Sodium 143, Potassium 3.8, Chloride 109 H, Carbon Dioxide 29.0, Anion Gap 5, BUN 16, Creatinine 1.04, Est GFR (MDRD) Af Amer 94, Est GFR (MDRD) Non-Af 78, BUN/Creatinine Ratio 15.4, Glucose 128 H, Calcium 7.9 L, Troponin I 0.030 07/04/18 05:08: APTT 29.5 Rhythm: Sinus rhythm EKG: As noted above ECHO: 06/21/2018: Left ventricular regional wall motion abnormalities; LVEF reported at 45%; severe left atrial enlargement; trivial MR; trivial TR; estimated RV systolic pressure of 26 mmHg Stress Test: 05/21/2018: Pharmacologic stress nuclear imaging study: Myocardial perfusion changes appearing compatible with an area of previous myocardial injury/infarction involving the basal to mid lateral segment with post stress myocardial perfusion changes appearing compatible with mild erum-infarct related myocardial ischemia with a gated LVEF of 36% Cardiac Cath: 05/21/2018 CONCLUSIONS Elevated Left Ventricular End Diastolic Pressure Segmented LV systolic dysfunction- Mild LVEF: by LV gram 50 % [place] Multivessel CAD RECOMMENDATIONS Risk factor modification Medical therapy Comment: If the patient demonstrates medication compliance then would consider referral to interventional cardiology for consideration of PCI to the DX system CORONARY ANGIOGRAPHY DOMINANCE: Co- Dominant LEFT HEART ASSESSMENT Left Ventricular Ejection Fraction: by LV Gram 50 % Inferior Basal Hypokinesis Elevated Left Ventricular End Diastolic Pressure LVEDP: 36 mmHg LEFT MAIN: Angiographically normal LEFT ANTERIOR DESCENDING ARTERY: PROX LAD: Eccentric: 25 % Stenosis MID LAD: Mild luminal irregularities DIAGONAL 1: Proximal - serial 85 % Stenosis CIRCUMFLEX ARTERY: Mild luminal irregularities RIGHT CORONARY ARTERY: DISTAL RCA: subtotally occluded, Previously placed stent is occluded VALVE FINDINGS: Normal Aortic Valve function Normal Mitral Valve function AORTIC ROOT: Angiographically normal CXR: Preliminary evaluation: No acute cardiopulmonary disease process Assessment/Plan 1. Abnormal ECG The patient has demonstrated dynamic ECG changes with respect to T wave abnormalities in the anterolateral distribution. These may have been brought out by the patient's hypotension superimposed upon the patient's underlying coronary artery disease process. As the patient has improved with respect to his blood pressure is T wave changes appear to have normalized. In the interim the patient's cardiac enzymes/troponin I levels have remained negative. At the present time the patient will continue to be monitored. He will reinitiate medical therapy deemed appropriate for his cardiovascular status. Ideally the patient would be considered, as in May of this year, for PCI of his LAD/diagonal branch system, however, as in May, there is concern with proceeding with this endeavor when the patient remains noncompliant with his medication. There is a risk of proceeding with PCI/stent requiring antiplatelet therapy and the patient not taking medications as prescribed and subsequently being at increased risk for acute stent thrombosis and an acute coronary syndrome. This has been discussed with the patient. This was discussed with the patient and his brother during his May evaluation. Thus the patient can be placed back on appropriate medications. Ideally, as in May, he would have to demonstrate medication compliance prior to proceeding to coronary artery PCI for the concerns noted above. 2. CAD status post RCA PCI-remote As noted above the patient has had previous CAD and RCA PCI. Based upon his most recent diagnostic cardiac catheterization his RCA PCI/stent appears to be chronically occluded. He does have underlying LAD/diagonal branch disease. At the present time he has not demonstrated evidence of acute coronary syndrome by cardiac enzymes. He is without acute symptoms at this time. He will reinitiate medical management. His case can be reviewed with interventional cardiology with respect to their opinion on his case, medication noncompliance, and need for future PCI. 3. Hyperlipidemia The patient should continue medical management to modify his cardiovascular risks. 4. Hypertension The patient will need to continue appropriate antihypertensive therapy. 5. Diabetes mellitus The patient will continue under the care of internal medicine for this. 6. Hypotension Again the patient is unclear as to what medications he has or has not taken as he readily admits he has not been taking his medications as prescribed. He presented with hypotension and elevated creatinine levels. This does raise concern of decreased intravascular volume. He has responded to IV fluids. He will need to be monitored with respect to his vital signs, creatinine level, etc. 7. Acute renal insufficiency Again this may be secondary to volume shifts based upon his response to IV fluids. He will continue to be followed. His medications will need to be adjusted in and around the time of his acute renal insufficiency. Hopefully over time he can resume medications which may benefit his cardiovascular status which would include agents such as DAMIÁN inhibitors or ARB's which she has been on in the past. 8. Medication noncompliance Again there is concern about the patient readily admitting that he does not take his medications as prescribed and how that impacts his underlying medical condition and need for future cardiovascular procedures, etc. Comment: The patient's case has been discussed and reviewed with Dr. Krueger. This note was generated with [employer] dictation software. It may contain incorrect words, spelling, and punctuation that were not noted in checking the note before signing.
--- NOTE | 2018-07-04 10:18 | CASEMGMT ---
VANNA SUTHERLAND assessment: Face to Face with patient for initial transition planning/care coordination assessment. VANNA SUTHERLAND introduced self and role at [facility], pt voices understanding and consents to assessment at this time. Pt is lying in bed in no distress at this time. Pt is A/Ox4 at this time and answers all questions appropriately at this time. Care providers, pharmacy, and demographics verified at this time. PCP: [facility] Specialists: [facility] Preferred Pharmacy: [facility] Insurance: [employer] Prescription Benefit: [employer] Living Will/HPOA: Pt states does not have LW/HPOA and states no interest in information at this time. LNOK: Ct [address], mother Living Arrangements: Pt states lives alone in 1 story apt and states no concerns at home at this time. Transportation: Pt states that he does not drive but his brother drives him and states no transportation concerns at this time. DME/HHC: Pt states he has a walker and cane but does not regularly use them. Pt states no need for any further DME at this time. Pt states no hx of HHC or SNF. Pt voices no concerns with going home at time of discharge. Pt states does not smoke or drink ETOH. Pt states is disabled. Pt voices no further concerns/needs at this time. Plan: [place] VANNA SUTHERLAND
[2018-07-04] MEDS: Metoprolol Tartrate 25 MG Tablet PO ×2 (10:34→20:47)
[2018-07-04] MEDS: Clopidogrel Bisulfate 300 MG Tablet PO (10:34)
[2018-07-04] MEDS: Aspirin E.C. 81 MG Tablet PO (10:34)
[2018-07-04] MEDS: Isosorbide Mononitrate 30 MG Tablet PO (10:34)
[2018-07-04] MEDS: amLODIPine 10 MG Tablet PO (10:35)
[2018-07-04 12:06] LABS: Bedside Glucose 103 mg/dL (70-110)
--- NOTE | 2018-07-04 12:39 | PCM.PROGNOTE ---
<Andrea Stanley - Last Filed: 07/04/18 12:39> Patient Problems: Active and Suspected Problems (Last Reviewed 07/04/18 @ 01:38 by Anil Palmer MD) Hypotension (Acute) Abnormal EKG (Acute) Subjective: Pt resting comfortably in bed. States he had not eaten or drank much for several days. States he has only been sitting watching TV most of the time because he does not want to do anything else. He wont take his home meds because he does not want to. - Physical Exam General: Alert, Oriented x3, Cooperative HEENT: Atraumatic, PERRLA, EOMI, Normocephalic Neck: Supple, No JVD, Negative Carotid Bruits Lungs: Clear to auscultation, Normal air movement Cardiovascular: Regular rate, No murmurs Abdomen: Bowel Sounds Present, Soft, Non Tender Extremities: No edema, Capillary Refill Less than 3 Seconds Skin: No rashes, No breakdown Musculoskeletal: No Tenderness to Palpation of Joints or Extremities Neurological: Cranial nerves II-XII grossly intact Psych/Mental Status: Normal Affect, Appropriate, Alert and oriented to time, place, person, mood and affect Vital Signs Temp Pulse Resp BP Pulse Ox 97.6 F L 82 16 159/108 H 94 07/04/18 10:09 07/04/18 10:34 07/04/18 10:09 07/04/18 10:34 07/04/18 10:09 Oxygen Delivery Method Room Air Weight: 186 lb 8.177 oz Body Mass Index (BMI) 24.5 Finger Stick Blood Glucose 391 Orthostatic Vital Signs Start: 07/04/18 05:01 Freq: q24h Status: Active Protocol: Activity Type Activity Date Activity User E-Sign Co-Sign Detail Recorded Client Recorded Date Recorded By Document 07/04/18 05:01 [facility] [id number] 07/04/18 05:05 [facility] 07/04/18 05:01 Orthostatic Vitals Standing -Blood Pressure (90/60-120/80) 168/144 H -Extremity Use Right Arm -Pulse Rate (60-100) 81 Sitting -Blood Pressure (90/60-120/80) 157/100 H -Extremity Use Right Arm -Pulse Rate (60-100) 79 Lying -Blood Pressure (90/60-120/80) 162/74 H -Extremity Use Right Arm -Pulse Rate (60-100) 74 Intake and Output for Last 24 Hours 07/02/18 07/03/18 07/04/18 23:59 23:59 23:59 Intake Total 327.4 / 327.4 901 / 901 Balance 327.4 / 327.4 901 / 901 Laboratory Tests Past 24 Hrs 07/03/18 07/03/18 07/03/18 18:18 18:18 18:18 WBC 10.6 RBC 4.63 Hgb 13.8 Hct 42.2 MCV 91.1 MCH 29.8 MCHC 32.7 RDW 13.6 RDW Differential 45.0 H Plt Count 261 MPV 11.1 Immature Gran % (Auto) 0.200 Neut % (Auto) 77.2 H Lymph % (Auto) 14.6 L [place] % (Auto) 6.1 Eos % (Auto) 1.5 Baso % (Auto) 0.4 Absolute Neuts (auto) 8.2 H Absolute Lymphs (auto) 1.54 Total Counted Not Reportable PT INR APTT Sodium 138 Potassium 4.3 Chloride 103 Carbon Dioxide 29.0 Anion Gap 6 BUN 19 H Creatinine 1.44 H Estim Creat Clear Calc 63.96 Est GFR (MDRD) Af Amer 65 Est GFR (MDRD) Non-Af 54 L BUN/Creatinine Ratio 13.2 Glucose 227 H Lactic Acid Calcium 8.4 L Troponin I 0.022 Vitamin B12 360 Vitamin D 25-Hydroxy 17.1 L Urine Color Urine Clarity Urine pH Ur Specific [place] Urine Protein Urine Glucose (UA) Urine Ketones Urine Occult Blood Urine Nitrite Urine Bilirubin Urine Urobilinogen Ur Leukocyte Esterase Urine RBC Urine WBC Ur Squamous Epith Cells Urine Bacteria Urine Mucus Ur Random Sodium Urine Creatinine 07/03/18 07/03/18 07/03/18 18:37 22:05 22:05 WBC RBC Hgb Hct MCV MCH MCHC RDW RDW Differential Plt Count MPV Immature Gran % (Auto) Neut % (Auto) Lymph % (Auto) [place] % (Auto) Eos % (Auto) Baso % (Auto) Absolute Neuts (auto) Absolute Lymphs (auto) Total Counted PT INR APTT Sodium Potassium Chloride Carbon Dioxide Anion Gap BUN Creatinine Estim Creat Clear Calc Est GFR (MDRD) Af Amer Est GFR (MDRD) Non-Af BUN/Creatinine Ratio Glucose Lactic Acid 1.9 Calcium Troponin I Vitamin B12 Vitamin D 25-Hydroxy Urine Color Yellow Urine Clarity Clear Urine pH 6.0 Ur Specific [place] 1.020 Urine Protein 30 H Urine Glucose (UA) 100 H Urine Ketones Negative Urine Occult Blood Negative Urine Nitrite Negative Urine Bilirubin Negative Urine Urobilinogen Normal Ur Leukocyte Esterase Negative Urine RBC 0 SEEN Urine WBC 0 SEEN Ur Squamous Epith Cells 0-5 SEEN Urine Bacteria 0 SEEN Urine Mucus 0 SEEN Ur Random Sodium Urine Creatinine Pending 07/03/18 07/03/18 07/04/18 22:05 22:48 01:22 WBC RBC Hgb Hct MCV MCH MCHC RDW RDW Differential Plt Count MPV Immature Gran % (Auto) Neut % (Auto) Lymph % (Auto) [place] % (Auto) Eos % (Auto) Baso % (Auto) Absolute Neuts (auto) Absolute Lymphs (auto) Total Counted PT INR APTT Sodium Potassium Chloride Carbon Dioxide Anion Gap BUN Creatinine Estim Creat Clear Calc Est GFR (MDRD) Af Amer Est GFR (MDRD) Non-Af BUN/Creatinine Ratio Glucose Lactic Acid Calcium Troponin I 0.023 0.023 Vitamin B12 Vitamin D 25-Hydroxy Urine Color Urine Clarity Urine pH Ur Specific [place] Urine Protein Urine Glucose (UA) Urine Ketones Urine Occult Blood Urine Nitrite Urine Bilirubin Urine Urobilinogen Ur Leukocyte Esterase Urine RBC Urine WBC Ur Squamous Epith Cells Urine Bacteria Urine Mucus Ur Random Sodium Pending Urine Creatinine 07/04/18 07/04/18 07/04/18 05:08 05:08 05:08 WBC 7.0 RBC 4.24 L Hgb 12.9 L Hct 38.5 L MCV 90.8 MCH 30.4 MCHC 33.5 RDW 13.4 RDW Differential 44.0 H Plt Count 213 MPV 10.9 Immature Gran % (Auto) Neut % (Auto) Lymph % (Auto) [place] % (Auto) Eos % (Auto) Baso % (Auto) Absolute Neuts (auto) Absolute Lymphs (auto) Total Counted PT 13.1 INR 1.0 APTT Sodium 143 Potassium 3.8 Chloride 109 H Carbon Dioxide 29.0 Anion Gap 5 BUN 16 Creatinine 1.04 Estim Creat Clear Calc 88.56 Est GFR (MDRD) Af Amer 94 Est GFR (MDRD) Non-Af 78 BUN/Creatinine Ratio 15.4 Glucose 128 H Lactic Acid Calcium 7.9 L Troponin I 0.030 Vitamin B12 Vitamin D 25-Hydroxy Urine Color Urine Clarity Urine pH Ur Specific [place] Urine Protein Urine Glucose (UA) Urine Ketones Urine Occult Blood Urine Nitrite Urine Bilirubin Urine Urobilinogen Ur Leukocyte Esterase Urine RBC Urine WBC Ur Squamous Epith Cells Urine Bacteria Urine Mucus Ur Random Sodium Urine Creatinine 07/04/18 05:08 WBC RBC Hgb Hct MCV MCH MCHC RDW RDW Differential Plt Count MPV Immature Gran % (Auto) Neut % (Auto) Lymph % (Auto) [place] % (Auto) Eos % (Auto) Baso % (Auto) Absolute Neuts (auto) Absolute Lymphs (auto) Total Counted PT INR APTT 29.5 Sodium Potassium Chloride Carbon Dioxide Anion Gap BUN Creatinine Estim Creat Clear Calc Est GFR (MDRD) Af Amer Est GFR (MDRD) Non-Af BUN/Creatinine Ratio Glucose Lactic Acid Calcium Troponin I Vitamin B12 Vitamin D 25-Hydroxy Urine Color Urine Clarity Urine pH Ur Specific [place] Urine Protein Urine Glucose (UA) Urine Ketones Urine Occult Blood Urine Nitrite Urine Bilirubin Urine Urobilinogen Ur Leukocyte Esterase Urine RBC Urine WBC Ur Squamous Epith Cells Urine Bacteria Urine Mucus Ur Random Sodium Urine Creatinine POC Glucose 07/04/18 07/04/18 07/03/18 11:55 05:08 22:36 POC Glucose 103 120 H 105 07/03/18 18:16 POC Glucose 186 H Medical Necessity - Tobacco Use Smoking Status: Current every day smoker Tobacco Use: Vapor Assessment/Plan All Active Problems (Last Reviewed 07/04/18 @ 01:38 by Anil Palmer MD) Hypotension (Acute) Abnormal EKG (Acute) Chest pain at rest (Acute) RASHAWN (acute kidney injury) (Acute) Chest pain (Acute) Abnormal stress test (Acute) 1. Hypotension - resolved now htn 2. RASHAWN 2/2 poor PO intake. Resolved. 3. Known CAD - abnormal EKG, Cardiology following. has lesion but may not be beneficial to stent as he could occlude if he does not take plavix as prescribed. 85% stenosis proximal diagonal. Trop neg x 3. 4. T2DM - SSI. 5. Tobacco declined patch 6. Vit D def. - start po but likely will not take at home. DVT ppx: lovenox DC planning : pending plan for cath. This patient was seen by Andrea Stanley PA-C under the supervision of Doctor Evans. <Jarad Krueger - Last Filed: 07/04/18 14:16> Subjective: The patient was seen and examined. Patient denies chest pain but looks very weak and thin. He states he gets short of breath on exertion and on walking/climbing stairs. Patient has saturations near fall but did not had echo fall. - Physical Exam General: Alert, Oriented x3, Cooperative, No apparent distress HEENT: Atraumatic, PERRLA, EOMI, Normocephalic Neck: Supple, No JVD, Negative Carotid Bruits Lungs: Clear to auscultation, Normal air movement, No rhonchi, No wheeze, No rales, Diminished - Diffuse both lung [place] Cardiovascular: Regular rate, Normal S1, Normal S2, No murmurs Abdomen: Bowel Sounds Present, Soft, Non Tender, Non-Distended Extremities: No edema, Capillary Refill Less than 3 Seconds Skin: No rashes, No breakdown Musculoskeletal: No Tenderness to Palpation of Joints or Extremities, Arthritic Changes, Muscle Wasting Neurological: Cranial nerves II-XII grossly intact, Neuro grossly intact, Motor Exam 5/5 strength throughout Psych/Mental Status: Normal Affect, Appropriate Vital Signs Temp Pulse Resp BP Pulse Ox 97.6 F L 69 16 159/108 H 94 07/04/18 10:09 07/04/18 12:26 07/04/18 10:09 07/04/18 10:34 07/04/18 10:09 Oxygen Delivery Method Room Air Weight: 186 lb 8.177 oz Body Mass Index (BMI) 24.5 Finger Stick Blood Glucose 391 Orthostatic Vital Signs Start: 07/04/18 05:01 Freq: q24h Status: Active Protocol: Activity Type Activity Date Activity User E-Sign Co-Sign Detail Recorded Client Recorded Date Recorded By Document 07/04/18 05:01 [facility] [id number] 07/04/18 05:05 [facility] 07/04/18 05:01 Orthostatic Vitals Standing -Blood Pressure (90/60-120/80) 168/144 H -Extremity Use Right Arm -Pulse Rate (60-100) 81 Sitting -Blood Pressure (90/60-120/80) 157/100 H -Extremity Use Right Arm -Pulse Rate (60-100) 79 Lying -Blood Pressure (90/60-120/80) 162/74 H -Extremity Use Right Arm -Pulse Rate (60-100) 74 Intake and Output for Last 24 Hours 07/02/18 07/03/18 07/04/18 23:59 23:59 23:59 Intake Total 327.4 / 327.4 901 / 901 Balance 327.4 / 327.4 901 / 901 Laboratory Tests Past 24 Hrs 07/03/18 07/03/18 07/03/18 18:18 18:18 18:18 WBC 10.6 RBC 4.63 Hgb 13.8 Hct 42.2 MCV 91.1 MCH 29.8 MCHC 32.7 RDW 13.6 RDW Differential 45.0 H Plt Count 261 MPV 11.1 Immature Gran % (Auto) 0.200 Neut % (Auto) 77.2 H Lymph % (Auto) 14.6 L [place] % (Auto) 6.1 Eos % (Auto) 1.5 Baso % (Auto) 0.4 Absolute Neuts (auto) 8.2 H Absolute Lymphs (auto) 1.54 Total Counted Not Reportable PT INR APTT Sodium 138 Potassium 4.3 Chloride 103 Carbon Dioxide 29.0 Anion Gap 6 BUN 19 H Creatinine 1.44 H Estim Creat Clear Calc 63.96 Est GFR (MDRD) Af Amer 65 Est GFR (MDRD) Non-Af 54 L BUN/Creatinine Ratio 13.2 Glucose 227 H Lactic Acid Calcium 8.4 L Troponin I 0.022 Vitamin B12 360 Vitamin D 25-Hydroxy 17.1 L Urine Color Urine Clarity Urine pH Ur Specific [place] Urine Protein Urine Glucose (UA) Urine Ketones Urine Occult Blood Urine Nitrite Urine Bilirubin Urine Urobilinogen Ur Leukocyte Esterase Urine RBC Urine WBC Ur Squamous Epith Cells Urine Bacteria Urine Mucus Ur Random Sodium Urine Creatinine 07/03/18 07/03/18 07/03/18 18:37 22:05 22:05 WBC RBC Hgb Hct MCV MCH MCHC RDW RDW Differential Plt Count MPV Immature Gran % (Auto) Neut % (Auto) Lymph % (Auto) [place] % (Auto) Eos % (Auto) Baso % (Auto) Absolute Neuts (auto) Absolute Lymphs (auto) Total Counted PT INR APTT Sodium Potassium Chloride Carbon Dioxide Anion Gap BUN Creatinine Estim Creat Clear Calc Est GFR (MDRD) Af Amer Est GFR (MDRD) Non-Af BUN/Creatinine Ratio Glucose Lactic Acid 1.9 Calcium Troponin I Vitamin B12 Vitamin D 25-Hydroxy Urine Color Yellow Urine Clarity Clear Urine pH 6.0 Ur Specific [place] 1.020 Urine Protein 30 H Urine Glucose (UA) 100 H Urine Ketones Negative Urine Occult Blood Negative Urine Nitrite Negative Urine Bilirubin Negative Urine Urobilinogen Normal Ur Leukocyte Esterase Negative Urine RBC 0 SEEN Urine WBC 0 SEEN Ur Squamous Epith Cells 0-5 SEEN Urine Bacteria 0 SEEN Urine Mucus 0 SEEN Ur Random Sodium Urine Creatinine Pending 07/03/18 07/03/18 07/04/18 22:05 22:48 01:22 WBC RBC Hgb Hct MCV MCH MCHC RDW RDW Differential Plt Count MPV Immature Gran % (Auto) Neut % (Auto) Lymph % (Auto) [place] % (Auto) Eos % (Auto) Baso % (Auto) Absolute Neuts (auto) Absolute Lymphs (auto) Total Counted PT INR APTT Sodium Potassium Chloride Carbon Dioxide Anion Gap BUN Creatinine Estim Creat Clear Calc Est GFR (MDRD) Af Amer Est GFR (MDRD) Non-Af BUN/Creatinine Ratio Glucose Lactic Acid Calcium Troponin I 0.023 0.023 Vitamin B12 Vitamin D 25-Hydroxy Urine Color Urine Clarity Urine pH Ur Specific [place] Urine Protein Urine Glucose (UA) Urine Ketones Urine Occult Blood Urine Nitrite Urine Bilirubin Urine Urobilinogen Ur Leukocyte Esterase Urine RBC Urine WBC Ur Squamous Epith Cells Urine Bacteria Urine Mucus Ur Random Sodium Pending Urine Creatinine 07/04/18 07/04/18 07/04/18 05:08 05:08 05:08 WBC 7.0 RBC 4.24 L Hgb 12.9 L Hct 38.5 L MCV 90.8 MCH 30.4 MCHC 33.5 RDW 13.4 RDW Differential 44.0 H Plt Count 213 MPV 10.9 Immature Gran % (Auto) Neut % (Auto) Lymph % (Auto) [place] % (Auto) Eos % (Auto) Baso % (Auto) Absolute Neuts (auto) Absolute Lymphs (auto) Total Counted PT 13.1 INR 1.0 APTT Sodium 143 Potassium 3.8 Chloride 109 H Carbon Dioxide 29.0 Anion Gap 5 BUN 16 Creatinine 1.04 Estim Creat Clear Calc 88.56 Est GFR (MDRD) Af Amer 94 Est GFR (MDRD) Non-Af 78 BUN/Creatinine Ratio 15.4 Glucose 128 H Lactic Acid Calcium 7.9 L Troponin I 0.030 Vitamin B12 Vitamin D 25-Hydroxy Urine Color Urine Clarity Urine pH Ur Specific [place] Urine Protein Urine Glucose (UA) Urine Ketones Urine Occult Blood Urine Nitrite Urine Bilirubin Urine Urobilinogen Ur Leukocyte Esterase Urine RBC Urine WBC Ur Squamous Epith Cells Urine Bacteria Urine Mucus Ur Random Sodium Urine Creatinine 07/04/18 05:08 WBC RBC Hgb Hct MCV MCH MCHC RDW RDW Differential Plt Count MPV Immature Gran % (Auto) Neut % (Auto) Lymph % (Auto) [place] % (Auto) Eos % (Auto) Baso % (Auto) Absolute Neuts (auto) Absolute Lymphs (auto) Total Counted PT INR APTT 29.5 Sodium Potassium Chloride Carbon Dioxide Anion Gap BUN Creatinine Estim Creat Clear Calc Est GFR (MDRD) Af Amer Est GFR (MDRD) Non-Af BUN/Creatinine Ratio Glucose Lactic Acid Calcium Troponin I Vitamin B12 Vitamin D 25-Hydroxy Urine Color Urine Clarity Urine pH Ur Specific [place] Urine Protein Urine Glucose (UA) Urine Ketones Urine Occult Blood Urine Nitrite Urine Bilirubin Urine Urobilinogen Ur Leukocyte Esterase Urine RBC Urine WBC Ur Squamous Epith Cells Urine Bacteria Urine Mucus Ur Random Sodium Urine Creatinine POC Glucose 07/04/18 07/04/18 07/03/18 11:55 05:08 22:36 POC Glucose 103 120 H 105 07/03/18 18:16 POC Glucose 186 H Assessment/Plan This patient was seen in conjunction with Andrea CRAWFORD. I have independently interviewed and examined the patient and reviewed pertinent history, examination findings, laboratory and plan of management. I have reviewed the note and agree with the documented findings with the few additional points. In brief, the patient is a 57-year-old gentleman with history of hypertension, diabetes mellitus type 2, coronary artery disease status post stents with recent cardiac cath 85% stenosis in proximal diagonal was admitted with generalized weakness with near full situation. Patient has dyspnea on exertion. He is noncompliant to medications. EKG showed T inversion in anterolateral leads which is presumably new. Troponins are negative. [employer] was consulted. Discussed with Dr. Wilkins and his noncompliance of medications especially Plavix is questionable if he gets a stent. Patient is loaded with Plavix. For now, continue medical management. Patient was also found acute kidney injury most probably prerenal with admitting creatinine 1.44, BUN 19. UA suggestive of proteinuria, glucosuria with negative nitrite and leukocyte esterase, WBC count 0, RBC 0, bacteria 0 suggestive of no UTI. Diabetes mellitus is uncontrolled with hyperglycemia, glucose 227 on BMP. I have discussed my assessment with Andrea CRAWFORD and orders have been reviewed. Clinical Impression(s) from Imaging Studies Chest X-Ray 07/03/18 18:25 IMPRESSION: No acute cardiopulmonary process. Code Visit Inpatient E&M: 14299 Subs Hosp L3
[2018-07-04] MEDS: Enoxaparin 40 MG/0.4 ML Syringe SC (13:46)
[2018-07-04 17:05] LABS: Bedside Glucose 151 mg/dL (70-110)
[2018-07-04] MEDS: Insulin Lispro 100 UNIT/ML INSULN.PEN SQ (17:59)
[2018-07-04] MEDS: Doxepin Hydrochloride 10 MG Capsule 20 MG PO (20:47)
[2018-07-04] MEDS: Atorvastatin Calcium 80 MG Tablet PO (20:48)
[2018-07-04 23:20] LABS: Magnesium 1.6 mg/dL (1.6-2.6)
[2018-07-04 23:46] LABS: Bedside Glucose 118 mg/dL (70-110)
[2018-07-05] VITALS (12 sets, daily range): BP systolic 145–192; BP diastolic 99–121; PULSE 75–100; RESP 16; TEMP 36.4–36.9; O2SAT 93–98
[2018-07-05 00:41] LABS: Bedside Glucose 110 mg/dL (70-110)
[2018-07-05 06:23] LABS: Anion Gap 7 (5-15); BUN 11 mg/dL (7-18); BUN/Creat Ratio 12.3 RATIO (10-20); Calcium,Total 8.7 mg/dL (8.5-10.1); Chloride 106 mmol/L (98-107); EST Glomerular Filtration Rate 93 mL/min (>60); Est Glom Filt Rate - Afr Amer 112 mL/min (>60); Estimated Creatinine Clearance 102.34 ml/min; Glucose 133 mg/dL (74-106); Potassium 3.6 mmol/L (3.5-5.1); Sodium Level 139 mmol/L (136-145)
[2018-07-05] MEDS: hydrALAZINE 20 MG/ML Vial 5 MG IV (06:46)
[2018-07-05] MEDS: 0.9% NaCl Peripheral Flush Adult/Peds IV (06:47)
[2018-07-05 07:06] LABS: Bedside Glucose 122 mg/dL (70-110)
[2018-07-05] MEDS: Metoprolol Tartrate 25 MG Tablet PO (08:47)
[2018-07-05] MEDS: Aspirin E.C. 81 MG Tablet PO (08:47)
[2018-07-05] MEDS: Isosorbide Mononitrate 30 MG Tablet PO (08:47)
[2018-07-05] MEDS: Clopidogrel Bisulfate 75 MG Tablet PO (08:48)
[2018-07-05] MEDS: amLODIPine 10 MG Tablet PO (08:48)
[2018-07-05] MEDS: Lisinopril 20 MG Tablet PO (08:52)
[2018-07-05] MEDS: Enoxaparin 40 MG/0.4 ML Syringe SC (08:56)
[2018-07-05] MEDS: Insulin Lispro 100 UNIT/ML INSULN.PEN SQ (11:12)
[2018-07-05 11:20] LABS: Bedside Glucose 212 mg/dL (70-110)
--- NOTE | 2018-07-05 15:37 | PCM.PN.HOSP ---
Patient Problems: Active and Suspected Problems (Last Reviewed 07/04/18 @ 01:38 by Anil Palmer MD) Hypotension (Acute) Abnormal EKG (Acute) Subjective: Doing ok, no chest pain. Denies SOB. States that he is depressed because of where he lives. He has no friends and never gets out of the house. He has an 80 yo former neighbor who will drive him to appointments. He does not take his medications because he does not try to remember to take them because of his depression. Vitals/I&O's: Vital Signs Temp Pulse Resp BP Pulse Ox 97.6 F L 88 16 145/99 H 98 07/05/18 14:13 07/05/18 14:13 07/05/18 14:13 07/05/18 14:13 07/05/18 14:13 Oxygen Delivery Method Room Air Weight: 186 lb 8.177 oz Body Mass Index (BMI) 24.5 Finger Stick Blood Glucose 391 Orthostatic Vital Signs Start: 07/04/18 05:01 Freq: q24h Status: Active Protocol: Activity Type Activity Date Activity User E-Sign Co-Sign Detail Recorded Client Recorded Date Recorded By Document 07/05/18 06:42 KDB [id number] 07/05/18 06:44 KDB 07/05/18 06:42 Orthostatic Vitals Standing -Blood Pressure (90/60-120/80) 157/102 H -Extremity Use Left Arm -Pulse Rate (60-100) 97 Sitting -Blood Pressure (90/60-120/80) 168/121 H -Extremity Use Left Arm -Pulse Rate (60-100) 88 Lying -Blood Pressure (90/60-120/80) 171/109 H -Extremity Use Left Arm -Pulse Rate (60-100) 80 Intake and Output for Last 24 Hours 07/03/18 07/04/18 07/05/18 23:59 23:59 23:59 Intake Total 327.4 / 327.4 1321 / 1321 743 / 743 Output Total 120 / 120 500 / 500 Balance 327.4 / 327.4 1201 / 1201 243 / 243 General: Alert, Oriented x3, Cooperative, No apparent distress HEENT: Atraumatic, EOMI, Normocephalic Oral: Moist Mucosa Neck: Supple, No JVD Lungs: Clear to auscultation, Normal air movement, No rhonchi, No wheeze, No rales Cardiovascular: Regular rate, Regular Rhythm, Normal S1, Normal S2, No murmurs Abdomen: Soft, Non Tender, Non-Distended, No Hepato-splenomegaly Skin: No rashes, No breakdown Neurological: Neuro grossly intact, Sensory exam intact to light touch and pain Psych/Mental Status: Flat Affect, Depressed Laboratory Results 07/04/18 16:58: POC Glucose 151 H 07/04/18 20:43: POC Glucose 118 H 07/04/18 22:56: Magnesium 1.6 07/05/18 00:19: POC Glucose 110 07/05/18 05:38: Sodium 139, Potassium 3.6, Chloride 106, Carbon Dioxide 26.0, Anion Gap 7, BUN 11, Creatinine 0.90, Estim Creat Clear Calc 102.34, Est GFR (MDRD) Af Amer 112, Est GFR (MDRD) Non-Af 93, BUN/Creatinine Ratio 12.3, Glucose 133 H, Calcium 8.7 07/05/18 06:37: POC Glucose 122 H 07/05/18 11:10: POC Glucose 212 H Current Medications Albuterol Sulfate (Ventolin Aerosols) 2.5 mg INHALATION Q2H PRN PRN PRN Reason: SOB/WHEEZING Amlodipine Besylate (Norvasc) 10 mg PO DAILY [facility] Last Admin: 07/05/18 08:48 Dose: 10 mg Aspirin (Ecotrin) 81 mg PO DAILY@0800 [facility] Last Admin: 07/05/18 08:47 Dose: 81 mg Atorvastatin Calcium (Lipitor) 80 mg PO QHS [facility] Last Admin: 07/04/18 20:48 Dose: 80 mg Cholecalciferol (Vitamin D) 1,000 unit PO DAILY [facility] Last Admin: 07/05/18 08:48 Dose: 1,000 unit Clopidogrel Bisulfate (Plavix) 75 mg PO DAILY [facility] Last Admin: 07/05/18 08:48 Dose: 75 mg Dextrose (D50w Syringe) 0 gm IV X1 PRN; Protocol PRN Reason: Hypoglycemia Doxepin HCl (Sinequan) 20 mg PO QHS [facility] Last Admin: 07/04/18 20:47 Dose: 20 mg Enoxaparin Sodium (Lovenox) 40 mg SC DAILY@1000 [facility] Last Admin: 07/05/18 08:56 Dose: 40 mg Glucagon () 1 mg IM .X1 PRN PRN Reason: Hypoglycemia Hydralazine HCl (Apresoline Iv) 5 mg IV Q6H PRN PRN PRN Reason: SBP > 160 Last Admin: 07/05/18 06:46 Dose: 5 mg Insulin Glargine (Lantus (Bkc)) 10 units SC QHS [facility] Last Admin: 07/04/18 20:46 Dose: 10 units Insulin Human Lispro (Humalog Kwikpen ([facility])) 0 unit SQ Q6 [facility]; Protocol Last Admin: 07/05/18 11:12 Dose: 4 units Isosorbide Mononitrate (Imdur) 30 mg PO DAILY [facility] Last Admin: 07/05/18 08:47 Dose: 30 mg Lisinopril (Zestril) 20 mg PO BID [facility] Last Admin: 07/05/18 08:52 Dose: 20 mg Magnesium Hydroxide (Milk Of Magnesia) 30 ml PO DAILY PRN PRN Reason: Constipation Metoprolol Tartrate (Lopressor (Beta Rajinder)) 25 mg PO BID [facility] Last Admin: 07/05/18 08:47 Dose: 25 mg Sodium Chloride () 5 - 30 ml IV UD PRN PRN Reason: SALINE FLUSH Last Admin: 07/05/18 06:47 Dose: 10 ml Medical Necessity - Tobacco Use Smoking Status: Current every day smoker Tobacco Use: Vapor Assessment/Plan All Active Problems (Last Reviewed 07/04/18 @ 01:38 by Anil Palmer MD) Hypotension (Acute) Abnormal EKG (Acute) Chest pain at rest (Acute) RASHAWN (acute kidney injury) (Acute) Chest pain (Acute) Abnormal stress test (Acute) 1. RASHAWN/Hypotension both now resolved 2/2 to dehydration - Not sure what medications he takes. - Does not take his meds consistently because he does not care 2. CAD s/p cath on 05/21 - No cath this admission because he would need a stent but he wont take medications consistently - T waves corrected with hydration - 85% stable plaque in the proximal diagonal - Appreciate cardiology recs 3. DM2 - SSI - can restart his home medications on DC 4. Tobacco use - counseled on cessation - refuses patch 5. Depression - Will not give antidepressant as he will likely not take it - He will need therapy as an outpatient which may be of better benefit DVT ppx: lovenox Code Visit Inpatient E&M: 47412 Subs Hosp L2
--- NOTE | 2018-07-05 15:42 | PN_ITS ---
Patient Problems: Active and Suspected Problems (Last Reviewed 07/04/18 @ 01:38 by Anil Palmer MD) Hypotension (Acute) Abnormal EKG (Acute) Subjective: Doing ok, no chest pain. Denies SOB. States that he is depressed because of where he lives. He has no friends and never gets out of the house. He has an 80 yo former neighbor who will drive him to appointments. He does not take his medications because he does not try to remember to take them because of his depression. Vitals/I&O's: Vital Signs Temp Pulse Resp BP Pulse Ox 97.6 F L 88 16 145/99 H 98 07/05/18 14:13 07/05/18 14:13 07/05/18 14:13 07/05/18 14:13 07/05/18 14:13 Oxygen Delivery Method Room Air Weight: 186 lb 8.177 oz Body Mass Index (BMI) 24.5 Finger Stick Blood Glucose 391 Orthostatic Vital Signs Start: 07/04/18 05:01 Freq: q24h Status: Active Protocol: Activity Type Activity Date Activity User E-Sign Co-Sign Detail Recorded Client Recorded Date Recorded By Document 07/05/18 06:42 KDB [id number] 07/05/18 06:44 KDB 07/05/18 06:42 Orthostatic Vitals Standing -Blood Pressure (90/60-120/80) 157/102 H -Extremity Use Left Arm -Pulse Rate (60-100) 97 Sitting -Blood Pressure (90/60-120/80) 168/121 H -Extremity Use Left Arm -Pulse Rate (60-100) 88 Lying -Blood Pressure (90/60-120/80) 171/109 H -Extremity Use Left Arm -Pulse Rate (60-100) 80 Intake and Output for Last 24 Hours 07/03/18 07/04/18 07/05/18 23:59 23:59 23:59 Intake Total 327.4 / 327.4 1321 / 1321 743 / 743 Output Total 120 / 120 500 / 500 Balance 327.4 / 327.4 1201 / 1201 243 / 243 General: Alert, Oriented x3, Cooperative, No apparent distress HEENT: Atraumatic, EOMI, Normocephalic Oral: Moist Mucosa Neck: Supple, No JVD Lungs: Clear to auscultation, Normal air movement, No rhonchi, No wheeze, No rales Cardiovascular: Regular rate, Regular Rhythm, Normal S1, Normal S2, No murmurs Abdomen: Soft, Non Tender, Non-Distended, No Hepato-splenomegaly Skin: No rashes, No breakdown Neurological: Neuro grossly intact, Sensory exam intact to light touch and pain Psych/Mental Status: Flat Affect, Depressed Laboratory Results 07/04/18 16:58: POC Glucose 151 H 07/04/18 20:43: POC Glucose 118 H 07/04/18 22:56: Magnesium 1.6 07/05/18 00:19: POC Glucose 110 07/05/18 05:38: Sodium 139, Potassium 3.6, Chloride 106, Carbon Dioxide 26.0, Anion Gap 7, BUN 11, Creatinine 0.90, Estim Creat Clear Calc 102.34, Est GFR (MDRD) Af Amer 112, Est GFR (MDRD) Non-Af 93, BUN/Creatinine Ratio 12.3, Glucose 133 H, Calcium 8.7 07/05/18 06:37: POC Glucose 122 H 07/05/18 11:10: POC Glucose 212 H Current Medications Albuterol Sulfate (Ventolin Aerosols) 2.5 mg INHALATION Q2H PRN PRN PRN Reason: SOB/WHEEZING Amlodipine Besylate (Norvasc) 10 mg PO DAILY [facility] Last Admin: 07/05/18 08:48 Dose: 10 mg Aspirin (Ecotrin) 81 mg PO DAILY@0800 [facility] Last Admin: 07/05/18 08:47 Dose: 81 mg Atorvastatin Calcium (Lipitor) 80 mg PO QHS [facility] Last Admin: 07/04/18 20:48 Dose: 80 mg Cholecalciferol (Vitamin D) 1,000 unit PO DAILY [facility] Last Admin: 07/05/18 08:48 Dose: 1,000 unit Clopidogrel Bisulfate (Plavix) 75 mg PO DAILY [facility] Last Admin: 07/05/18 08:48 Dose: 75 mg Dextrose (D50w Syringe) 0 gm IV X1 PRN; Protocol PRN Reason: Hypoglycemia Doxepin HCl (Sinequan) 20 mg PO QHS [facility] Last Admin: 07/04/18 20:47 Dose: 20 mg Enoxaparin Sodium (Lovenox) 40 mg SC DAILY@1000 [facility] Last Admin: 07/05/18 08:56 Dose: 40 mg Glucagon () 1 mg IM .X1 PRN PRN Reason: Hypoglycemia Hydralazine HCl (Apresoline Iv) 5 mg IV Q6H PRN PRN PRN Reason: SBP > 160 Last Admin: 07/05/18 06:46 Dose: 5 mg Insulin Glargine (Lantus (Bkc)) 10 units SC QHS [facility] Last Admin: 07/04/18 20:46 Dose: 10 units Insulin Human Lispro (Humalog Kwikpen ([facility])) 0 unit SQ Q6 [facility]; Protocol Last Admin: 07/05/18 11:12 Dose: 4 units Isosorbide Mononitrate (Imdur) 30 mg PO DAILY [facility] Last Admin: 07/05/18 08:47 Dose: 30 mg Lisinopril (Zestril) 20 mg PO BID [facility] Last Admin: 07/05/18 08:52 Dose: 20 mg Magnesium Hydroxide (Milk Of Magnesia) 30 ml PO DAILY PRN PRN Reason: Constipation Metoprolol Tartrate (Lopressor (Beta Rajinder)) 25 mg PO BID [facility] Last Admin: 07/05/18 08:47 Dose: 25 mg Sodium Chloride () 5 - 30 ml IV UD PRN PRN Reason: SALINE FLUSH Last Admin: 07/05/18 06:47 Dose: 10 ml Medical Necessity - Tobacco Use Smoking Status: Current every day smoker Tobacco Use: Vapor Assessment/Plan All Active Problems (Last Reviewed 07/04/18 @ 01:38 by Anil Palmer MD) Hypotension (Acute) Abnormal EKG (Acute) Chest pain at rest (Acute) RASHAWN (acute kidney injury) (Acute) Chest pain (Acute) Abnormal stress test (Acute) 1. RASHAWN/Hypotension both now resolved 2/2 to dehydration - Not sure what medications he takes. - Does not take his meds consistently because he does not care 2. CAD s/p cath on 05/21 - No cath this admission because he would need a stent but he wont take medications consistently - T waves corrected with hydration - 85% stable plaque in the proximal diagonal - Appreciate cardiology recs 3. DM2 - SSI - can restart his home medications on DC 4. Tobacco use - counseled on cessation - refuses patch 5. Depression - Will not give antidepressant as he will likely not take it - He will need therapy as an outpatient which may be of better benefit DVT ppx: lovenox Code Visit Inpatient E&M: 23616 Subs Hosp L2
--- NOTE | 2018-07-05 16:41 | DCINST_ITS ---
- Discharge Diagnoses Current Active Problems: Current Active and Chronic Problems (Last Reviewed 07/04/18 @ 01:38 by Anil Palmer MD) Hypotension (Acute) Abnormal EKG (Acute) You will use the following diet at home:: Cardiac Your food should be the consistency of: Regular Your liquids should be the consistency of: Regular/Thin Discharge Activity: No Restrictions Call your doctor if you observe: Shortness of breath, Chest pain, Increased palpitations (irregular heartbeat) Allergies/Adverse Reactions: Allergies ampicillin Allergy (Verified 07/03/18 18:07) Swelling ibuprofen [From Motrin] Allergy (Verified 07/03/18 18:07) Swelling SEA FOOD Allergy (Uncoded 07/03/18 18:07) Swelling Medications to take at Discharge Doxepin HCl 20 mg PO QHS 09/18/17 Oxycodone HCl/Acetaminophen [Percocet 10-325 mg Tablet] 10 - 325 mg PO Q6H PRN PRN 09/18/17 Atorvastatin Calcium [Lipitor] 80 mg PO QHS #30 tab 09/20/17 Aspirin E.C. [Ecotrin] 81 mg PO DAILY@0800 #90 tab 05/21/18 Metoprolol Tartrate [Lopressor (beta nanette)] 50 mg PO BID #90 tab 05/21/18 Amlodipine [Norvasc] 10 mg PO DAILY #30 tab 05/22/18 Isosorbide Mononitrate [Imdur] 30 mg PO DAILY #30 tab 05/22/18 Lisinopril [Zestril] 20 mg PO BID #30 tab 18 Nitroglycerin [Nitrostat] 0.4 mg SUBLINGUAL Q5M PRN #10 tab 05/22/18 Primary Care Physician: Rosario Arroyo DO [Primary Care Provider] - Please follow up with your Primary Care Physician in: 3-5 days Test Results: Test results from this visit will be discussed in further detail at your follow- up appointment, if applicable.
--- NOTE | 2018-07-05 16:50 | DS.PCM_ITS ---
Discharge Date and Diagnosis - Problem List Patient Problems: Active and Suspected Problems (Last Reviewed 07/04/18 @ 01:38 by Anil Palmer MD) Hypotension (Acute) Abnormal EKG (Acute) Date of Admission: 07/03/18 Date of Discharge: 07/05/18 - Primary Discharge Diagnosis Active and Suspected Problems (Last Reviewed 07/04/18 @ 01:38 by Anil Palmer MD) Hypotension (Acute) Abnormal EKG (Acute) - Secondary Discharge Diagnosis Chronic Problems (Last Reviewed 07/04/18 @ 01:38 by Anil Palmer MD) Tobacco chew use (Chronic) PFO (patent foramen ovale) (Chronic) Diabetes (Chronic) HTN (hypertension) (Chronic) Hyperlipidemia (Chronic) Smokeless tobacco use (Chronic) Uncontrolled type 2 diabetes mellitus (Chronic) CAD (coronary artery disease) (Chronic) Acute cerebrovascular accident of cerebellum (Chronic) CVA (cerebral vascular accident) (Chronic) S/P PTCA (percutaneous transluminal coronary angioplasty) (Chronic) Noncompliance with medication regimen (Chronic) Hospital Course and Treatment Imaging Results: None Consults: Cardiology Operations: None Procedures: None Summary of Care Provided: HPI: The patient is a 57 year old M with a significant history of hypertension, diabetes mellitus type 2, CAD status post stents and still with 85% stenosis proximal diagonal; medical noncompliance who presented with generalized weakness and near fall. Patient reported that on the day of admission he noticed that he has been weak all day. He went to an auction and was getting up and was about to fall. Subsequently he was brought to the emergency department. At emergency department his blood pressure was noted to be severely low but he responded to IV fluids. Patient reported to me that he took his blood pressure medication but he did not take his metformin or insulin today. However he repor alyssa to the emergency department doctor that he took his medication for diabetes today. Cardiology was consulted because patient had a T wave inversion in precordial leads which was new. Per conversation between ED doctor and accounting intern; recommendations are to trend troponin; and Dr. Wilkins who is very familiar with patient will follow up patient in a.m. . At the ED; patient was noted to have severely elevated creatinine above his baseline. Hospital Course: 1. RASHAWN/Hypotension/T wave inversion/CAD - Both resolved with IVF resuscitation. As his RASHAWN resolved so did his T wave inversion. His cardiac cath from 05/21 was reviewed and he has an 85% stenosis of his diagonal branch. Since he is not compliant with his medications it would be irresponsible to place a REYNA. The plaque at the moment appears to be stable. No further cardiac work-up at this time. I discussed with him that it is imperative that he take his medications. Also discussed that he needs to quit smoking which he also refuses to do. 2. Depression - Talking with him, he seems at least depressed. He lives alone, never leaves the house and his only friend is an 80 yo former neighbor who drives him to appointments. I would like to start him on Zoloft and to have outpatient follow-up however, I also do not want to waste his money since he probably wont take the pills. I would recommend outpatient therapy to start. Patient Problems: Active and Suspected Problems (Last Reviewed 07/04/18 @ 01:38 by Anil Palmer MD) Hypotension (Acute) Abnormal EKG (Acute) - Physical Exam Vital Signs Temp Pulse Resp BP Pulse Ox 97.6 F L 88 16 145/99 H 98 07/05/18 14:13 07/05/18 14:13 07/05/18 14:13 07/05/18 14:13 07/05/18 14:13 Oxygen Delivery Method Room Air Weight: 186 lb 8.177 oz Body Mass Index (BMI) 24.5 Finger Stick Blood Glucose 391 Orthostatic Vital Signs Start: 07/04/18 05:01 Freq: q24h Status: Active Protocol: Activity Type Activity Date Activity User E-Sign Co-Sign Detail Recorded Client Recorded Date Recorded By Document 07/05/18 06:42 KDB [id number] 07/05/18 06:44 KDB 07/05/18 06:42 Orthostatic Vitals Standing -Blood Pressure (90/60-120/80) 157/102 H -Extremity Use Left Arm -Pulse Rate (60-100) 97 Sitting -Blood Pressure (90/60-120/80) 168/121 H -Extremity Use Left Arm -Pulse Rate (60-100) 88 Lying -Blood Pressure (90/60-120/80) 171/109 H -Extremity Use Left Arm -Pulse Rate (60-100) 80 Intake and Output for Last 24 Hours 07/03/18 07/04/18 07/05/18 23:59 23:59 23:59 Intake Total 327.4 / 327.4 1321 / 1321 743 / 743 Output Total 120 / 120 500 / 500 Balance 327.4 / 327.4 1201 / 1201 243 / 243 Laboratory Tests Past 24 Hrs 07/04/18 07/05/18 22:56 05:38 Sodium 139 Potassium 3.6 Chloride 106 Carbon Dioxide 26.0 Anion Gap 7 BUN 11 Creatinine 0.90 Estim Creat Clear Calc 102.34 Est GFR (MDRD) Af Amer 112 Est GFR (MDRD) Non-Af 93 BUN/Creatinine Ratio 12.3 Glucose 133 H Calcium 8.7 Magnesium 1.6 POC Glucose 07/05/18 07/05/18 07/05/18 11:10 06:37 00:19 POC Glucose 212 H 122 H 110 07/04/18 07/04/18 20:43 16:58 POC Glucose 118 H 151 H Discharge Activity: No Restrictions Call your doctor if you observe: Shortness of breath, Chest pain, Increased palpitations (irregular heartbeat) Home Medications: Medications to take at Discharge Doxepin HCl 20 mg PO QHS 09/18/17 Oxycodone HCl/Acetaminophen [Percocet 10-325 mg Tablet] 10 - 325 mg PO Q6H PRN PRN 09/18/17 Atorvastatin Calcium [Lipitor] 80 mg PO QHS #30 tab 09/20/17 Aspirin E.C. [Ecotrin] 81 mg PO DAILY@0800 #90 tab 05/21/18 Metoprolol Tartrate [Lopressor (beta nanette)] 50 mg PO BID #90 tab 05/21/18 Amlodipine [Norvasc] 10 mg PO DAILY #30 tab 05/22/18 Isosorbide Mononitrate [Imdur] 30 mg PO DAILY #30 tab 05/22/18 Lisinopril [Zestril] 20 mg PO BID #30 tab 05/22/18 Nitroglycerin [Nitrostat] 0.4 mg SUBLINGUAL Q5M PRN #10 tab 05/22/18 Primary Care Physician: Rosario Arroyo DO [Primary Care Provider] - Please follow up with your Primary Care Physician in: 3-5 days Disposition: Home Minutes spent on discharge:: 35 Patient Condition:: Good Medical Necessity - Tobacco Use Smoking Status: Current every day smoker Tobacco Use: Vapor Meaningful Use Info Meaningful Use Diagnoses (Choose all that apply): None applicable Code Visit Inpatient E&M: 37467 Disch Hosp
--- NOTE | 2018-07-08 13:54 | CASEMGMT ---
Discharge Follow-up phone call: RUPESH: Jayda STRATA: 3 Discharge Date: 07/05/18. Adm Dx: RASHAWN, Abnormal EKG, Hypotension RN KOKO placed call to Mr Anna for discharge follow-up. He responded with very brief answers and did not elaborate on anything or ask any questions. VANNA SUTHERLAND asked him how he has been doing since he was discharged from the hospital. Pt answered briefly, stating, alright. Asked Mr Anna if he had any questions about the discharge instructions and he stated, no. Inquired if the appt time that was made with Dr Arroyo was suitable/worked for him and he stated, I don't even know when it is, I don't have the paper with me. Informed that it is this the @ 11:30 and he stated that was okay. Inquired of Mr Anna if he has any suggestions for [facility] and he stated, nope. VANNA SUTHERLAND thanked him for taking the time to answer these questions and for choosing [facility]. Erinn HINKLE RN, CM
== END 2018-07-05 17:30 | disposition home or self-care (01) | DRG 683 ==
LOC: ED 18:47 → PCU 21:51
PROVIDERS: Internal Medicine; Internal Medicine Cardiovascular Disease; Admitting Provider Hospitalist; Emergency Provider Emergency Medicine; Family Provider Family Medicine; PCP Family Medicine; Visit Provider Family Medicine
DX: N17.9 Acute kidney failure, unspecified (principal); Q21.1 Atrial septal defect; E86.0 Dehydration; I25.10 Atherosclerotic heart disease of native coronary artery without angina pectoris; Z95.5 Presence of coronary angioplasty implant and graft; Z91.14 Patient's other noncompliance with medication regimen; E11.65 Type 2 diabetes mellitus with hyperglycemia; I95.9 Hypotension, unspecified; F32.9 Major depressive disorder, single episode, unspecified; F17.290 Nicotine dependence, other tobacco product, uncomplicated; R94.31 Abnormal electrocardiogram [ECG] [EKG]; E78.5 Hyperlipidemia, unspecified; I10 Essential (primary) hypertension
CPT/HCPCS: 36415; 71045; 80048; 81001; 82306; 82570; 82607; 82962; 83605; 83735; 84300; 84484; 85025; 85027; 85610; 85730; 93005; 97110; 97162; 97165; 97530; 97802; 99285; J7030; A4216; G8978; G8979; G8987; G8988

== ENCOUNTER → 2018-10-02 13:59 | Outpatient (CLI) | payer MEDICARE, SELFPAY ==
[2018-10-02 15:39] LABS: Absolute Lymphocyte Count 1.42 X10^3/ul (0.83-4.51); Absolute Neutrophil Count 4.3 X10^3/uL (2.0-7.7); Basophil# 0.02 X10^3/uL; Basophil% 0.3 % (0-1); Eosinophil# 0.11 X10^3/uL; Eosinophils% 1.8 % (0-5); Hematocrit 41.7 % (40-54); Hemoglobin 13.9 g/dl (13.0-16.5); Lymphocyte # 1.42 X10^3/ul (4.0); Lymphocyte % 22.6 % (19-41); Mean Corp Hgb Conc 33.3 g/gl (32-36); Mean Corpuscular Hgb 29.7 pg (27.0-32.0); Mean Corpuscular Volume 89.1 fL (80-94); Mean Platelet Vol. 12.3 fl (6.2-12.0); Monocyte# 0.42 X10^3/uL; Monocyte% 6.7 % (0-10); Neutrophil % 68.6 % (47-70); POSITIVE COUNT NO; POSITIVE DIFFERENTIAL NO; POSITIVE MORPHOLOGY NO; Platelet Count 219 K/mm3 (150-450); RBC Distribution Width CV 13.2 % (11.6-14.6); RBC Distribution Width SD 42.9 fl (35.1-43.9); Red Blood Count 4.68 M/mm3 (4.6-6.2); White Blood Count 6.3 K/mm3 (4.4-11.0)
[2018-10-02 15:58] LABS: ALB/GLOB Ratio 1.2 RATIO (0.9-2.4); AST(SGOT) 17 U/L (15-37); Alanine Aminotransfer ALT/SGPT 28 U/L (16-61); Albumin, Serum 3.6 g/dL (3.2-5.0); Alkaline Phosphatase 89 U/L (45-117); Anion Gap 9 (5-15); BUN 14 mg/dL (7-18); BUN/Creat Ratio 14.6 RATIO (10-20); Calcium,Total 8.6 mg/dL (8.5-10.1); Chloride 107 mmol/L (98-107); Creatinine, Serum 0.96 mg/dL (0.70-1.30); EST Glomerular Filtration Rate 86 mL/min (>60); Est Glom Filt Rate - Afr Amer 104 mL/min (>60); Globulin 2.9 g/dL (2.2-4.2); Glucose 158 mg/dL (74-106); Potassium 3.6 mmol/L (3.5-5.1); Protein, Total 6.5 g/dL (6.4-8.2); Sodium Level 142 mmol/L (136-145)
--- OUTSIDE RECORDS SUMMARY | 2018-12-07 11:08 | XMS RPT_ITS ---
:1960 Author Organization [facility] Support Name Relationship Address Phone D Unavailable Unavailable Unavailable GOREY, GERT Unavailable [address] + [place] [address] D Unavailable Unavailable Unavailable GOREY, GERT Unavailable [address] + [place] [address] D Unavailable Unavailable Unavailable GOREY, GERT Unavailable [address] + [place] [address] D Unavailable Unavailable Unavailable GOREY, GERT Unavailable [address] + [place] [address] D Unavailable Unavailable Unavailable GOREY, GERT Unavailable [address] + [place] [address] D Unavailable Unavailable Unavailable GOREY, GERT Unavailable [address] + [place] [address] D Unavailable Unavailable Unavailable GOREY, GERT Unavailable [address] + [place] [address] D Unavailable Unavailable Unavailable GOREY, GERT Unavailable [address] + [place] [address] D Unavailable Unavailable Unavailable GOREY, GERT Unavailable [address] + [place] [address] D Unavailable Unavailable Unavailable GOREY, GERT Unavailable [address] + [place] [address] D Unavailable Unavailable Unavailable GOREY, GERT Unavailable [address] + [place] [address] D Unavailable Unavailable Unavailable GOREY, GERT Unavailable [address] + [place] [address] D Unavailable Unavailable Unavailable GOREY, GERT Unavailable [address] + [place] [address] D Unavailable Unavailable Unavailable GOREY, GERT Unavailable [address] + [place] [address] D Unavailable Unavailable Unavailable GOREY, GERT Unavailable [address] + [place] [address] Care Team Providers Name Role Phone Rosario Arroyo Attending Unavailable Malys, Rosario Primary Care Unavailable Lili Blas Attending Unavailable Malys, Rosario Primary Care Unavailable Malys, Rosario Primary Care Unavailable Agyepong, Anil Admitting Unavailable [place], Kwabena Consulting Unavailable Paintsil, [place] Attending Unavailable Agyepong, Anil Admitting Unavailable Agyepong, Anil Attending Unavailable Malys, Rosario Primary Care Unavailable Agyepong, Anil Consulting Unavailable Agyepong, Anil Admitting Unavailable [place], Kwabena Attending Unavailable Malys, Rosario Primary Care Unavailable [place], Kwabena Consulting Unavailable [place]helfah, Ghasem Consulting Unavailable Agyepong, Anil Admitting Unavailable [place]helfah, Ghasem Attending Unavailable Malys, Rosario Primary Care Unavailable [place], Kwabena Consulting Unavailable [place], Ghasem Consulting Unavailable Agyepong, Anil Admitting Unavailable Paintsil, [place] Attending Unavailable Malys, Rosario Primary Care Unavailable [place], Kwabena Consulting Unavailable Paintsil, [place] Consulting Unavailable Pascual Alston Attending Unavailable [place], Kwabena Attending Unavailable AgyepongAnil Referring Unavailable Malys, Rosario Primary Care Unavailable Agyepong, Anil Admitting Unavailable [place], Kwabena Consulting Unavailable Jeremy Toney Attending Unavailable Agyepong, Anil Admitting Unavailable Agyepong, Anil Attending Unavailable Malys, Rosario Primary Care Unavailable Agyepong, Anil Consulting Unavailable Agyepong, Anil Admitting Unavailable Malys, Rosario Primary Care Unavailable [place], Kwabena Consulting Unavailable Jarad Krueger Attending Unavailable Agyepong, Anil Consulting Unavailable Agyepong, Anil Admitting Unavailable Jeremy Toney Attending Unavailable Malys, Orsario Primary Care Unavailable [place], Kwabena Consulting Unavailable Jeremy Toney Consulting Unavailable Kwabena Morley Attending Unavailable Jeremy Toney Referring Unavailable NaraEd carver Attending Unavailable Jeremy Toney Referring Unavailable PROBLEMS PROBLEMS DATE TYPE CONDITION / CODE ATTENDING STATUS SOURCE 10/03/2018 Unknown E11.9 - Type 2 MalRosario garvey Active [facility] diabetes mellitus [facility] without complications Hospital / E11.9(ICD-10) Repository 10/03/2018 Unknown E78.5 - MalRosario garvey Active [place] Hyperlipidemia, Community unspecified / Hospital E78.5(ICD-10) Repository 10/03/2018 Unknown Z51.81 - Encounter for Rosario Arroyo Active [place] therapeutic drug level Community monitoring / Hospital Z51.81(ICD-10) Repository 07/29/2018 Unknown R94.31 - Abnormal Nara, [place] Active [facility] electrocardiogram Community [ECG] [EKG] / Hospital R94.31(ICD-10) Repository 06/25/2018 Unknown I10 - Essential [place], Active [facility] (primary) hypertension [facility] / I10(ICD-10) Hospital Repository 06/25/2018 Unknown R07.9 - Chest pain, [place], Active [place] unspecified / [facility] R07.9(ICD-10) Hospital Repository 06/25/2018 Unknown R94.39 - Abnormal [place], Active [place] result of other [facility] cardiovascular Hospital function study / Repository R94.39(ICD-10) 06/25/2018 Unknown R07.89 - Other chest [place], Active [facility] pain / R07.89(ICD-10) [facility] Hospital Repository 01/01/2018 Unknown E11.65 - Type 2 Lili Blas Active [facility] diabetes mellitus with Community hyperglycemia / Hospital E11.65(ICD-10) Repository 01/01/2018 Unknown R63.4 - Abnormal Lili Blas Active [facility] weight loss / Community R63.4(ICD-10) Hospital Repository PROCEDURES PROCEDURES No Procedure Records FoundRESULTS RESULTS CBC W/DIFF, AUTOMATED Collected: 10/02/2018 Status: F Source: [place] 2:00 PM [facility] REPOSITORY TYPE CODE TESTS RESULT OUT OF RANGE REFERENCE UNITS LAB L100.1000 4.4-11.0 K/mm3 Normal WBC 6.3 LAB L100.1200 4.6-6.2 M/mm3 Normal RBC 4.68 LAB L100.1300 13.0-16.5 g/dl Normal HGB 13.9 LAB L100.1400 40-54 % Normal HCT 41.7 LAB L100.1500 80-94 fL Normal MCV 89.1 LAB L100.1600 27.0-32.0 pg Normal MCH 29.7 LAB L100.1700 32-36 g/gl Normal MCHC 33.3 LAB L100.1810 11.6-14.6 % Normal RDW CV 13.2 LAB L100.1820 35.1-43.9 fl Normal RDW SD 42.9 LAB L100.1900 150-450 K/mm3 Normal PLT 219 LAB L100.2000 6.2-12.0 fl High MPV 12.3 LAB L100.2100 47-70 % Normal NEUT% 68.6 LAB L100.2200 19-41 % Normal LY% 22.6 LAB L100.2300 0-10 % Normal MONO% 6.7 LAB L100.2400 0-5 % Normal EO% 1.8 LAB L100.2500 0-1 % Normal BASO% 0.3 LAB L100.2550 0.0-0.9 % Normal IM GRAN % 0.000 Result Comment: IG% - Immature Granulocytes (promyelocytes, myelocytes and metamyelocytes) > 1% indicates that a LEFT SHIFT is Present. LAB L100.2620 2.0-7.7 X10 3/uL Normal Absolute Neut 4.3 LAB L100.2720 0.83-4.51 X10 3/ul Normal Absolute Lymph 1.42 Performed By: #### L100.0100 #### [facility] [address] [place], [place], [address] COMPREHENSIVE METABOLIC Collected: 10/02/2018 Status: F Source: [facility] 2:00 PM [facility] REPOSITORY TYPE CODE TESTS RESULT OUT OF RANGE REFERENCE UNITS LAB L501.0100 74-106 mg/dL High GLU 158 Result Comment: Fasting Glucose result greater than or equal to 126 mg/dL suggests DIABETES MELLITUS per A.D.A. criteria. Please note revised GLUCOSE reference range effective 2017. LAB L501.1000 7-18 mg/dL Normal BUN 14 LAB L501.1100 0.70-1.30 mg/dL Normal CREAT,SERUM 0.96 Result Comment: The validity of the calculated GFR AND GFRAA in patients over 70 years has not been determined. Clinical correlation is essential. LAB L501.1110 >60 mL/min Normal EST GFR 86 Result Comment: Non- GFR Calc LAB L501.1115 >60 mL/min Normal EST GFR - AA 104 Result Comment: GFR Calc LAB L501.1300 10-20 RATIO Normal BUN/CRE 14.6 LAB L501.1500 6.4-8.2 g/dL T Normal PROT 6.5 LAB L501.1800 3.2-5.0 g/dL Normal ALB 3.6 LAB L501.1950 2.2-4.2 g/dL Normal GLOB 2.9 LAB L501.2000 0.9-2.4 RATIO Normal A/G 1.2 LAB L501.2200 8.5-10.1 mg/dL CA Normal 8.6 LAB L501.4100 15-37 U/L Normal AST 17 LAB L501.4305 45-117 U/L Normal ALK P 89 LAB L501.4405 16-61 U/L Normal ALT 28 LAB L501.4600 0.20-1.00 mg/dL T Normal BILI 0.50 LAB L501.5300 136-145 mmol/L NA Normal 142 LAB L501.5600 3.5-5.1 mmol/L K Normal 3.6 LAB L501.5900 98-107 mmol/L CL Normal 107 LAB L501.6100 21.0-32.0 mmol/L Normal CO2 26.0 LAB L501.6200 5-15 Normal GAP 9 Performed By: #### L500.4050 #### [facility] [address] [place], [address] 12 LEAD ELECTROCARDIOGRAM Observed: 07/08/2018 Status: F Source: [place] 12:33 PM [facility] REPOSITORY [facility] Cardiovascular Services [address] [place] [address] 12 Lead EKG 07/03/18 1825 MR#: [id number] Acct: [id number] Name: KALYANI LIVINGSTON Rep #: [id number] : 1960 57 From: Kwabena Morley MD Attending Dr: Jeremy Toney MD Status: DIS IN Ordering Dr: Kwabena Morley MD Date: 07/04/18 Location: [facility] Sex: M C Admitted: 07/03/18 Test Reason : DIZZY Blood Pressure : / mmHG Vent. Rate : 067 BPM Atrial Rate : 067 BPM P-R Int : 168 ms QRS Dur : 090 ms QT Int : 438 ms P-R-T Axes : -02 019 187 degrees QTc Int : 462 ms Normal sinus rhythm T wave abnormality, consider anterolateral ischemia Prolonged QT Abnormal ECG Confirmed by MILLI GAXIOLA, KWABENA ([id number]), assistant production editor KARISSA ELENA ([id number]) on 07/08/2018 12:33:13 PM Referred By: SL Confirmed By:KWABENA MORLEY MD 07/08/18 1233 Date Kwabena Morley MD CC: Rosario Arroyo DO; Jeremy Toney MD; Kwabena Morley MD Signed 12 LEAD ELECTROCARDIOGRAM Observed: 07/08/2018 Status: F Source: [place] 10:59 AM [facility] REPOSITORY [facility] Cardiovascular Services [address] [place] [address] 12 Lead EKG 07/03/18 2319 MR#: [id number] Acct: [id number] Name: KALYANI LIVINGSTON Rep #: [id number] : 1960 57 From: Ed Bains MD Attending Dr: Jeremy Toney MD Status: DIS IN Ordering Dr: Edgardo Bray MD Date: 07/03/18 Location: [facility] Sex: M C Admitted: 07/03/18 Test Reason : Blood Pressure : / mmHG Vent. Rate : 074 BPM Atrial Rate : 074 BPM P-R Int : 180 ms QRS Dur : 082 ms QT Int : 436 ms P-R-T Axes : 033 017 014 degrees QTc Int : 483 ms Normal sinus rhythm Nonspecific T wave abnormality Prolonged QT Abnormal ECG When compared with ECG of 03-JUL-2018 18:25, MANUAL COMPARISON REQUIRED, DATA IS UNCONFIRMED Confirmed by NARA GAXIOLA, ED ([id number]), assistant production editor KARISSA ELENA ([id number]) on 07/08/2018 10:58:32 AM Referred By: Confirmed By:ED BAINS MD 07/08/18 1058 Date Ed Bains MD CC: Rosario Arroyo DO; Jeremy Toney MD; Edgardo Bray MD Signed 12 LEAD ELECTROCARDIOGRAM Observed: 07/08/2018 Status: F Source: [place] 10:55 AM [facility] REPOSITORY [facility] Cardiovascular Services [address] [place] [address] 12 Lead EKG 07/04/18 0750 MR#: [id number] Acct: [id number] Name: KALYANI LIVINGSTON Rep #: [id number] : 1960 57 From: Ed Bains MD Attending Dr: Jeremy Toney MD Status: DIS IN Ordering Dr: Anil Palmer MD Date: 07/03/18 Location: [facility] Sex: M C Admitted: 07/03/18 Test Reason : CP Blood Pressure : / mmHG Vent. Rate : 074 BPM Atrial Rate : 074 BPM P-R Int : 172 ms QRS Dur : 086 ms QT Int : 398 ms P-R-T Axes : 040 024 030 degrees QTc Int : 441 ms Normal sinus rhythm Nonspecific T wave abnormality Abnormal ECG Confirmed by ED BAINS MD ([id number]), assistant production editor KARSISA ELENA ([id number]) on 07/08/2018 10:54:31 AM Referred By: MAGGIE Confirmed By:ED BAINS MD 07/08/18 105 Date Ed Bains MD CC: Anil Palmer MD; Rosario Arroyo DO; Jeremy Toney MD Signed CONSULTATION Observed: 07/05/2018 Status: F Source: [place] 8:38 PM [facility] REPOSITORY [facility] Medical Records Department [address] [place] [address] Consultation 07/04/18 0852 MR#: [id number] Acct: [id number] Name: KALYANI LIVINGSTON Rep #: [id number] : 1960 57 From: Kwabena Morley MD PCP: Rosario Arroyo DO Status: DIS IN Y Location: [place] [address] Problem List (1) Abnormal EKG Status: Acute (2) CAD (coronary artery disease) Status: Chronic Qualifiers: Coronary Disease-Associated Artery/Lesion type: [place] artery [place] vs. transplanted heart: pechanga heart Associated angina: without angina Qualified Code(s): I25.10 - Atherosclerotic heart disease of [place] coronary artery without angina pectoris (3) S/P PTCA (percutaneous transluminal coronary angioplasty) Status: Chronic (4) Hyperlipidemia Status: Chronic Qualifiers: Hyperlipidemia type: pure hypercholesterolemia Qualified Code(s): E78.00 - Pure hypercholesterolemia, unspecified; E78.0 - Pure hypercholesterolemia (5) HTN (hypertension) Status: Chronic Qualifiers: Hypertension type: essential hypertension Qualified Code(s): I10 - Essential (primary) hypertension (6) Diabetes Status: Chronic Qualifiers: Diabetes mellitus type: type 2 Diabetes mellitus jail insulin use: with jail use Diabetes mellitus complication status: with unspecified complications Qualified Code(s): E11.8 - Type 2 diabetes mellitus with unspecified complications; Z79.4 - care home (current) use of insulin; 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 He was previously evaluated at [facility] on 05/21/2018 for concerns of underlying chest discomfort and an abnormal exercise tolerance test/imaging study. He subsequently underwent diagnostic cardiac catheterization. The results are as noted below. He was recommended for medical management to document medication compliance and then consideration for future PCI. In the interim, at home, he states he has been noncompliant with his medications. He states he chooses not to take his medications. He has presented back to the hospital for concerns of generalized weakness. He was found to be hypotensive with elevated creatinine level. There were concerns of decreased intravascular volume. Again the patient was unclear as to which medicines he had taken and when he had taken them. He denied any ongoing chest discomfort or difficulty breathing. He denied any nausea, emesis, or diaphoresis. He states that he did not lose consciousness. In the emergency department he had cardiac enzymes performed which were negative. They have remained negative. He had an ECG performed which demonstrated sinus rhythm with T wave changes in the anterolateral distribution concerning for myocardial ischemia. He was placed in the PCU for further evaluation and care. His cardiac rhythm has remained sinus rhythm. His cardiac enzymes have remained negative. His T wave changes have resolved to baseline as his blood pressure has improved to the point of now becoming hypertensive. Status post IV fluids his creatinine level has improved. [] Past Medical History Allergies/Adverse Reactions: Allergies ampicillin Allergy (Verified 07/03/18 18:07) Swelling ibuprofen [From Motrin] Allergy (Verified 07/03/18 18:07) Swelling SEA FOOD Allergy (Uncoded 07/03/18 18:07) Swelling Home Medications: Ambulatory Orders Medication Instructions Recorded Past Medical History (Chronic Problems): Chronic Problems (Last Reviewed 07/04/18 @ 01:38 by Anil Palmer MD) Tobacco chew use (Chronic) PFO (patent foramen ovale) (Chronic) Diabetes (Chronic) HTN (hypertension) (Chronic) Hyperlipidemia (Chronic) Smokeless tobacco use (Chronic) Uncontrolled type 2 diabetes mellitus (Chronic) CAD (coronary artery disease) (Chronic) Acute cerebrovascular accident of cerebellum (Chronic) CVA (cerebral vascular accident) (Chronic) S/P PTCA (percutaneous transluminal coronary angioplasty) (Chronic) Noncompliance with medication regimen (Chronic) Surgical History: angioplasty, - - PCI, ankle, hip surgery, stomach surgery, neck surgery. Psychiatric History: No pertinent psych hx - *Family History Maternal History Items: Diabetes Paternal History Items: Heart Disease Sibling History Items: Heart Disease - CAD Lives: Alone Smoking Status: Current every day smoker Tobacco Use: Vapor Alcohol: None Drugs: None Review of Systems - Review of Systems General: Reports: Weakness. Denies: Fever, Fatigue, Night Sweats Cardiovascular: Denies: Chest Discomfort, Shortness of Breath, Orthopnea, PND, Peripheral Edema, Palpitations, Lightheadedness, Dizziness, Near Syncope, Syncope Respiratory: Denies: Cough, Sputum Production, Hemoptysis Gastrointestinal: Denies: Hematemesis, Hematochezia, Melena Genitourinary: Denies: Dysuria, Hematuria Skin: Denies: Rash Subjectve: This is a 57-year-old white male who appears to be resting comfortably at this time in no acute distress. Objective: Vital Signs Temp Pulse Resp BP Pulse Ox 97.6 F L 76 16 162/74 H 92 07/04/18 04:54 07/04/18 07:13 07/04/18 04:54 07/04/18 05:01 07/04/18 07:45 Oxygen Delivery Method Room Air Weight: 186 lb 8.177 oz Body Mass Index (BMI) 24.5 Finger Stick Blood Glucose 391 Orthostatic Vital Signs Start: 07/04/18 05:01 Freq: q24h Status: Active Protocol: Activity Type Activity Date Activity User E-Sign Co-Sign Detail Recorded Client Recorded Date Recorded By Document 07/04/18 05:01 [facility] [id number] 07/04/18 05:05 [facility] Intake and Output for Last 24 Hours Intake Total 327.4 / 327.4 399 / 399 Balance 327.4 / 327.4 399 / 399 General: Awake, Alert, Oriented x 3, Cooperative, No Acute Distress HEENT: Atraumatic, Normocephalic, PERRL, EOMI, Sclera Non Icteric Oral: Moist Mucosa Neck: Supple, Good ROM, No JVD Lungs: Clear to auscultation Cardiovascular: Regular Rhythm, Normal S1, Normal S2 Vascular: No Carotid Bruits Abdomen: Bowel Sounds Present, Soft, Non Tender Extremities: No Cyanosis, No Clubbing, No edema Psych/Mental Status: Flat Affect 07/03/18 18:18: WBC 10.6, RBC 4.63, Hgb 13.8, Hct 42.2, MCV 91.1, MCH 29.8, MCHC 32.7, RDW 13.6, RDW Differential 45.0 H, Plt Count 261, MPV 11.1, Immature Gran % (Auto) 0.200, Neut % (Auto) 77.2 H, Lymph % (Auto) 14.6 L, [place] % (Auto) 6.1, Eos % (Auto) 1.5, Baso % (Auto) 0.4, Absolute Neuts (auto) 8.2 H, Total Counted Not Reportable 07/03/18 18:18: Sodium 138, Potassium 4.3, Chloride 103, Carbon Dioxide 29.0, Anion Gap 6, BUN 19 H, Creatinine 1.44 H, Est GFR (MDRD) Af Amer 65, Est GFR (MDRD) Non-Af 54 L, BUN/Creatinine Ratio 13.2, Glucose 227 H, Calcium 8.4 L, Troponin I 0.022 07/03/18 18:37: Lactic Acid 1.9 07/03/18 22:05: Urine Color Yellow, Urine Clarity Clear, Urine pH 6.0, Ur Specific [place] 1.020, Urine Protein 30 H, Urine Glucose (UA) 100 H, Urine Ketones Negative, Urine Occult Blood Negative, Urine Nitrite Negative, Urine Bilirubin Negative, Urine Urobilinogen Normal, Ur Leukocyte Esterase Negative, Urine RBC 0 SEEN, Urine WBC 0 SEEN 07/03/18 22:48: Troponin I 0.023 07/04/18 01:22: Troponin I 0.023 07/04/18 05:08: WBC 7.0, RBC 4.24 L, Hgb 12.9 L, Hct 38.5 L, MCV 90.8, MCH 30.4, MCHC 33.5, RDW 13.4, RDW Differential 44.0 H, Plt Count 213, MPV 10.9 07/04/18 05:08: PT 13.1, INR 1.0 07/04/18 05:08: Sodium 143, Potassium 3.8, Chloride 109 H, Carbon Dioxide 29.0, Anion Gap 5, BUN 16, Creatinine 1.04, Est GFR (MDRD) Af Amer 94, Est GFR (MDRD) Non-Af 78, BUN/Creatinine Ratio 15.4, Glucose 128 H, Calcium 7.9 L, Troponin I 0.030 07/04/18 05:08: APTT 29.5 Rhythm: Sinus rhythm EKG: As noted above ECHO: 06/21/2018: Left ventricular regional wall motion abnormalities; LVEF reported at 45%; severe left atrial enlargement; trivial MR; trivial TR; estimated RV systolic pressure of 26 mmHg Stress Test: 05/21/2018: Pharmacologic stress nuclear imaging study: Myocardial perfusion changes appearing compatible with an area of previous myocardial injury/infarction involving the basal to mid lateral segment with post stress myocardial perfusion changes appearing compatible with mild erum-infarct related myocardial ischemia with a gated LVEF of 36% Cardiac Cath: 05/21/2018 CONCLUSIONS Elevated Left Ventricular End Diastolic Pressure Segmented LV systolic dysfunction- Mild LVEF: by LV gram 50 % [place] Multivessel CAD RECOMMENDATIONS Risk factor modification Medical therapy Comment: If the patient demonstrates medication compliance then would consider referral to interventional cardiology for consideration of PCI to the DX system CORONARY ANGIOGRAPHY DOMINANCE: Co- Dominant LEFT HEART ASSESSMENT Left Ventricular Ejection Fraction: by LV Gram 50 % Inferior Basal Hypokinesis Elevated Left Ventricular End Diastolic Pressure LVEDP: 36 mmHg LEFT MAIN: Angiographically normal LEFT ANTERIOR DESCENDING ARTERY: PROX LAD: Eccentric: 25 % Stenosis MID LAD: Mild luminal irregularities DIAGONAL 1: Proximal - serial 85 % Stenosis CIRCUMFLEX ARTERY: Mild luminal irregularities RIGHT CORONARY ARTERY: DISTAL RCA: subtotally occluded, Previously placed stent is occluded VALVE FINDINGS: Normal Aortic Valve function Normal Mitral Valve function AORTIC ROOT: Angiographically normal CXR: Preliminary evaluation: No acute cardiopulmonary disease process Assessment/Plan 1. Abnormal ECG The patient has demonstrated dynamic ECG changes with respect to T wave abnormalities in the anterolateral distribution. These may have been brought out by the patient's hypotension superimposed upon the patient's underlying coronary artery disease process. As the patient has improved with respect to his blood pressure is T wave changes appear to have normalized. In the interim the patient's cardiac enzymes/troponin I levels have remained negative. At the present time the patient will continue to be monitored. He will reinitiate medical therapy deemed appropriate for his cardiovascular status. Ideally the patient would be considered, as in May of this year, for PCI of his LAD/diagonal branch system, however, as in May, there is concern with proceeding with this endeavor when the patient remains noncompliant with his medication. There is a risk of proceeding with PCI/stent requiring antiplatelet therapy and the patient not taking medications as prescribed and subsequently being at increased risk for acute stent thrombosis and an acute coronary syndrome. This has been discussed with the patient. This was discussed with the patient and his brother during his May evaluation. Thus the patient can be placed back on appropriate medications. Ideally, as in May, he would have to demonstrate medication compliance prior to proceeding to coronary artery PCI for the concerns noted above. 2. CAD status post RCA PCI-remote As noted above the patient has had previous CAD and RCA PCI. Based upon his most recent diagnostic cardiac catheterization his RCA PCI/stent appears to be chronically occluded. He does have underlying LAD/diagonal branch disease. At the present time he has not demonstrated evidence of acute coronary syndrome by cardiac enzymes. He is without acute symptoms at this time. He will reinitiate medical management. His case can be reviewed with interventional cardiology with respect to their opinion on his case, medication noncompliance, and need for future PCI. 3. Hyperlipidemia The patient should continue medical management to modify his cardiovascular risks. 4. Hypertension The patient will need to continue appropriate antihypertensive therapy. 5. Diabetes mellitus The patient will continue under the care of internal medicine for this. 6. Hypotension Again the patient is unclear as to what medications he has or has not taken as he readily admits he has not been taking his medications as prescribed. He presented with hypotension and elevated creatinine levels. This does raise concern of decreased intravascular volume. He has responded to IV fluids. He will need to be monitored with respect to his vital signs, creatinine level, etc. 7. Acute renal insufficiency Again this may be secondary to volume shifts based upon his response to IV fluids. He will continue to be followed. His medications will need to be adjusted in and around the time of his acute renal insufficiency. Hopefully over time he can resume medications which may benefit his cardiovascular status which would include agents such as DAMIÁN inhibitors or ARB's which she has been on in the past. 8. Medication noncompliance Again there is concern about the patient readily admitting that he does not take his medications as prescribed and how that impacts his underlying medical condition and need for future cardiovascular procedures, etc. Comment: The patient's case has been discussed and reviewed with Dr. Krueger. This note was generated with [employer] software. It may contain incorrect words, spelling, and punctuation that were not noted in checking the note before signing. 07/05/182037 <Electronically signed by Kwabena Morley MD> Date Kwabena Morley MD Cosigner Signature (if applicable): Date CC: Rosario Arroyo DO; Kwabena Morley MD Signed DISCHARGE SUMMARY Observed: 07/05/2018 Status: F Source: CRUM 4:51 PM [facility] REPOSITORY [facility] Medical Records Department [address] [place] [address] Discharge Summary 07/05/18 1641 MR#: [id number] Acct: [id number] Name: KALYANI LIVINGSOTN Rep #: [id number] : 1960 57 From: Jeremy Toney MD PCP: Rosario Arroyo DO Status: ADM IN Location: [place] [address] Discharge Date and Diagnosis - Problem List Patient Problems: Active and Suspected Problems (Last Reviewed 07/04/18 @ 01:38 by Anil Palmer MD) Hypotension (Acute) Abnormal EKG (Acute) Date of Admission: 07/03/18 Date of Discharge: 07/05/18 - Primary Discharge Diagnosis Active and Suspected Problems (Last Reviewed 07/04/18 @ 01:38 by Anil Palmer MD) Hypotension (Acute) Abnormal EKG (Acute) - Secondary Discharge Diagnosis Chronic Problems (Last Reviewed 07/04/18 @ 01:38 by Anil Palmer MD) Tobacco chew use (Chronic) PFO (patent foramen ovale) (Chronic) Diabetes (Chronic) HTN (hypertension) (Chronic) Hyperlipidemia (Chronic) Smokeless tobacco use (Chronic) Uncontrolled type 2 diabetes mellitus (Chronic) CAD (coronary artery disease) (Chronic) Acute cerebrovascular accident of cerebellum (Chronic) CVA (cerebral vascular accident) (Chronic) S/P PTCA (percutaneous transluminal coronary angioplasty) (Chronic) Noncompliance with medication regimen (Chronic) Hospital Course and Treatment Imaging Results: None Consults: Cardiology Operations: None Procedures: None Summary of Care Provided: HPI: The patient is a 57 year old M with a significant history of hypertension, diabetes mellitus type 2, CAD status post stents and still with 85% stenosis proximal diagonal; medical noncompliance who presented with generalized weakness and near fall. Patient reported that on the day of admission he noticed that he has been weak all day. He went to an auction and was getting up and was about to fall. Subsequently he was brought to the emergency department. At emergency department his blood pressure was noted to be severely low but he responded to IV fluids. Patient reported to me that he took his blood pressure medication but he did not take his metformin or insulin today. However he reported to the emergency department doctor that he took his medication for diabetes today. Cardiology was consulted because patient had a T wave inversion in precordial leads which was new. Per conversation between ED doctor and mainframe systems programmer; recommendations are to trend troponin; and Dr. Morley who is very familiar with patient will follow up patient in a.m. . At the ED; patient was noted to have severely elevated creatinine above his baseline. Hospital Course: 1. RASHAWN/Hypotension/T wave inversion/CAD - Both resolved with IVF resuscitation. As his RASHAWN resolved so did his T wave inversion. His cardiac cath from 05/21 was reviewed and he has an 85% stenosis of his diagonal branch. Since he is not compliant with his medications it would be irresponsible to place a REYNA. The plaque at the moment appears to be stable. No further cardiac work-up at this time. I discussed with him that it is imperative that he take his medications. Also discussed that he needs to quit smoking which he also refuses to do. 2. Depression - Talking with him, he seems at least depressed. He lives alone, never leaves the house and his only friend is an 80 yo former neighbor who drives him to appointments. I would like to start him on Zoloft and to have outpatient follow- up however, I also do not want to waste his money since he probably wont take the pills. I would recommend outpatient therapy to start. Patient Problems: Active and Suspected Problems (Last Reviewed 07/04/18 @ 01:38 by Anil Palmer MD) Hypotension (Acute) Abnormal EKG (Acute) - Physical Exam Vital Signs Temp Pulse Resp BP Pulse Ox 97.6 F L 88 16 145/99 H 98 07/05/18 14:13 07/05/18 14:13 07/05/18 14:13 07/05/18 14:13 07/05/18 14:13 Oxygen Delivery Method Room Air Weight: 186 lb 8.177 oz Body Mass Index (BMI) 24.5 Finger Stick Blood Glucose 391 Orthostatic Vital Signs Start: 07/04/18 05:01 Freq: q24h Status: Active Protocol: Activity Type Activity Date Activity User E-Sign Co-Sign Detail Recorded Client Recorded Date Recorded By Document 07/05/18 06:42 KDB [id number] 07/05/18 06:44 KDB Orthostatic Vitals Standing -Blood Pressure (90/60-120/80) 157/102 H -Extremity Use Left Arm -Pulse Rate (60-100) 97 Sitting -Blood Pressure (90/60-120/80) 168/121 H Intake and Output for Last 24 Hours Intake Total 327.4 / 327.4 1321 / 1321 743 / 743 Output Total 120 / 120 500 / 500 Balance 327.4 / 327.4 1201 / 1201 243 / 243 Laboratory Tests Past 24 Hrs Sodium 139 Potassium 3.6 Chloride 106 Carbon Dioxide 26.0 Anion Gap 7 BUN 11 POC Glucose POC Glucose 212 H 122 H 110 POC Glucose 118 H 151 H Discharge Activity: No Restrictions Call your doctor if you observe: Shortness of breath, Chest pain, Increased palpitations (irregular heartbeat) Home Medications: Medications to take at Discharge Doxepin HCl 20 mg PO QHS 09/18/17 Oxycodone HCl/Acetaminophen [Percocet 10-325 mg Tablet] 10 - 325 mg PO Q6H PRN PRN 09/18/17 Atorvastatin Calcium [Lipitor] 80 mg PO QHS #30 tab 09/20/17 Aspirin E.C. [Ecotrin] 81 mg PO DAILY@0800 #90 tab 05/21/18 Metoprolol Tartrate [Lopressor (beta nanette)] 50 mg PO BID #90 tab 05/21/18 Amlodipine [Norvasc] 10 mg PO DAILY #30 tab 05/22/18 Isosorbide Mononitrate [Imdur] 30 mg PO DAILY #30 tab 05/22/18 Lisinopril [Zestril] 20 mg PO BID #30 tab 05/22/18 Nitroglycerin [Nitrostat] 0.4 mg SUBLINGUAL Q5M PRN #10 tab 05/22/18 Primary Care Physician: Rosario Arroyo DO [Primary Care Provider] - Please follow up with your Primary Care Physician in: 3-5 days Disposition: Home Minutes spent on discharge:: 35 Patient Condition:: Good Medical Necessity - Tobacco Use Smoking Status: Current every day smoker Tobacco Use: Vapor Meaningful Use Info Meaningful Use Diagnoses (Choose all that apply): None applicable Code Visit Inpatient E AND M: 69433 Disch Hosp 07/05/18 1651 <Electronically signed by Jeremy Toney MD> Date Jeremy Toney MD Cosigner Signature (if applicable): Date CC: Rosario Arrooy DO; Jeremy Toney MD Signed DISCHARGE INSTRUCTION Observed: 07/05/2018 Status: F Source: CRUM 4:41 PM [facility] REPOSITORY [facility] Medical Records Department [address] [place] [id number] Instructions for Home/Discharge Instructions 07/05/18 1640 MR#: [id number] Acct: [id number] Name: KALYANI LIVINGSTON Rep #: [id number] : 1960 57 From: Jeremy Toney MD PCP: Rosario Arroyo DO Status: ADM IN - Discharge Diagnoses Current Active Problems: Current Active and Chronic Problems (Last Reviewed 07/04/18 @ 01:38 by Anil Palmer MD) Hypotension (Acute) Abnormal EKG (Acute) You will use the following diet at home:: Cardiac Your food should be the consistency of: Regular Your liquids should be the consistency of: Regular/Thin Discharge Activity: No Restrictions Call your doctor if you observe: Shortness of breath, Chest pain, Increased palpitations (irregular heartbeat) Allergies/Adverse Reactions: Allergies ampicillin Allergy (Verified 07/03/18 18:07) Swelling ibuprofen [From Motrin] Allergy (Verified 07/03/18 18:07) Swelling SEA FOOD Allergy (Uncoded 07/03/18 18:07) Swelling Medications to take at Discharge Doxepin HCl 20 mg PO QHS 09/18/17 Oxycodone HCl/Acetaminophen [Percocet 10-325 mg Tablet] 10 - 325 mg PO Q6H PRN PRN 09/18/17 Atorvastatin Calcium [Lipitor] 80 mg PO QHS #30 tab 09/20/17 Aspirin E.C. [Ecotrin] 81 mg PO DAILY@0800 #90 tab 05/21/18 Metoprolol Tartrate [Lopressor (beta nanette)] 50 mg PO BID #90 tab 05/21/18 Amlodipine [Norvasc] 10 mg PO DAILY #30 tab 05/22/18 Isosorbide Mononitrate [Imdur] 30 mg PO DAILY #30 tab 05/22/18 Lisinopril [Zestril] 20 mg PO BID #30 tab 05/22/18 Nitroglycerin [Nitrostat] 0.4 mg SUBLINGUAL Q5M PRN #10 tab 05/22/18 Primary Care Physician: Rosario Arroyo DO [Primary Care Provider] - Please follow up with your Primary Care Physician in: 3-5 days Test Results: Test results from this visit will be discussed in further detail at your follow-up appointment, if applicable. 07/05/18 1641 <Electronically signed by Jeremy Toney MD> Date Jeremy Toney MD CC: Rosario Arroyo DO; Kwabena Morley MD BEDSIDE GLUCOSE Collected: 07/05/2018 Status: F Source: KAREN 11:10 AM [facility] REPOSITORY TYPE CODE TESTS RESULT OUT OF REFERENCE UNITS RANGE LAB L501.080 70-110 mg/dL High BEDSIDE GLU 212 Result Comment: MANAGEMENT OF PATIENT CARE PER NURSING PROTOCOL Performed By: #### L501.080 #### [facility] [place] [address] [place], [place] [id number] BEDSIDE GLUCOSE Collected: 07/05/2018 Status: F Source: KAREN 6:37 AM [facility] REPOSITORY TYPE CODE TESTS RESULT OUT OF REFERENCE UNITS RANGE LAB L501.080 70-110 mg/dL High BEDSIDE GLU 122 Result Comment: MANAGEMENT OF PATIENT CARE PER NURSING PROTOCOL Performed By: #### L501.080 #### [facility] Point of Care [address] [place], [place] [address] BASIC METABOLIC Collected: 07/05/2018 Status: F Source: KAREN PROFILE (BMP) 5:38 AM [facility] REPOSITORY TYPE CODE TESTS RESULT OUT OF RANGE REFERENCE UNITS LAB L501.0100 74-106 mg/dL High GLU 133 Result Comment: Fasting Glucose result greater than or equal to 126 mg/dL suggests DIABETES MELLITUS per A.D.A. criteria. Please note revised GLUCOSE reference range effective 2017. LAB L501.1000 7-18 mg/dL Normal BUN 11 LAB L501.1100 0.70-1.30 mg/dL Normal CREAT,SERUM 0.90 Result Comment: The validity of the calculated GFR AND GFRAA in patients over 70 years has not been determined. Clinical correlation is essential. LAB L501.1110 >60 mL/min Normal EST GFR 93 Result Comment: Non- GFR Calc LAB L501.1115 >60 mL/min Normal EST GFR - AA 112 Result Comment: GFR Calc LAB L501.1255 ml/min Normal Estimated CRCL 102.34 LAB L501.1300 10-20 RATIO BUN/CRE Normal 12.3 LAB L501.2200 8.5-10 mg/dL .1 CA Normal 8.7 LAB L501.5300 136-14 mmol/L 5 NA Normal 139 LAB L501.5600 3.5-5. mmol/L 1 K Normal 3.6 LAB L501.5900 98-107 mmol/L CL Normal 106 LAB L501.6100 21.0-3 mmol/L 2.0 CO2 Normal 26.0 LAB L501.6200 5-15 GAP Normal 7 Performed By: #### L500.2500 #### [facility] [address] [place], [place], [address] BEDSIDE GLUCOSE Collected: 07/05/2018 Status: F Source: KAREN 12:19 AM [facility] REPOSITORY TYPE CODE TESTS RESULT OUT OF RANGE REFERENCE UNITS LAB L501.080 70-110 mg/dL Normal BEDSIDE GLU 110 Result Comment: MANAGEMENT OF PATIENT CARE PER NURSING PROTOCOL Performed By: #### L501.080 #### [facility] Point of Care [address] [place] [address] MAGNESIUM Collected: 07/04/2018 Status: F Source: KAREN 10:56 PM [facility] REPOSITORY TYPE CODE TESTS RESULT OUT OF RANGE REFERENCE UNITS LAB L501.5200 1.6-2.6 mg/dL Normal MG 1.6 Performed By: #### L501.5200 #### [facility] [address] [place], [address] BEDSIDE GLUCOSE Collected: 07/04/2018 Status: F Source: KAREN 8:43 PM [facility] REPOSITORY TYPE CODE TESTS RESULT OUT OF REFERENCE UNITS RANGE LAB L501.080 70-110 mg/dL High BEDSIDE GLU 118 Result Comment: MANAGEMENT OF PATIENT CARE PER NURSING PROTOCOL Performed By: #### L501.080 #### [facility] Point of Care [address] [place] [address] BEDSIDE GLUCOSE Collected: 07/04/2018 Status: F Source: KAREN 4:58 PM [facility] REPOSITORY TYPE CODE TESTS RESULT OUT OF REFERENCE UNITS RANGE LAB L501.080 70-110 mg/dL High BEDSIDE GLU 151 Result Comment: MANAGEMENT OF PATIENT CARE PER NURSING PROTOCOL Performed By: #### L501.080 #### [facility] Point of Care [address] [place] [address] BEDSIDE GLUCOSE Collected: 07/04/2018 Status: F Source: KAREN 11:55 AM [facility] REPOSITORY TYPE CODE TESTS RESULT OUT OF RANGE REFERENCE UNITS LAB L501.080 70-110 mg/dL Normal BEDSIDE GLU 103 Result Comment: MANAGEMENT OF PATIENT CARE PER NURSING PROTOCOL Performed By: #### L501.080 #### [facility] Point of Care [address] [place] [address] CBC-COMPLETE BLOOD CNT Collected: 07/04/2018 Status: F Source: KAREN NO DIFF 5:08 AM [facility] REPOSITORY TYPE CODE TESTS RESULT OUT OF RANGE REFERENCE UNITS LAB L100.1000 4.4-11.0 K/mm3 Normal WBC 7.0 LAB L100.1200 4.6-6.2 M/mm3 Low RBC 4.24 LAB L100.1300 13.0-16.5 g/dl Low HGB 12.9 LAB L100.1400 40-54 % Low HCT 38.5 LAB L100.1500 80-94 fL Normal MCV 90.8 LAB L100.1600 27.0-32.0 pg Normal MCH 30.4 LAB L100.1700 32-36 g/gl Normal MCHC 33.5 LAB L100.1810 11.6-14.6 % Normal RDW CV 13.4 LAB L100.1820 35.1-43.9 fl High RDW SD 44.0 LAB L100.1900 150-450 K/mm3 Normal PLT 213 LAB L100.2000 6.2-12.0 fl Normal MPV 10.9 Performed By: #### L100.0500 #### [facility] [address] [place], [place], [address] BASIC METABOLIC Collected: 07/04/2018 Status: F Source: CRUM PROFILE (BMP) 5:08 AM [facility] REPOSITORY Order Comment: 'TROP' Serial specimen #1, #2 or #3: 3 'TROP' Serial specimen #1, #2, #3, or #4: 3 TYPE CODE TESTS RESULT OUT OF RANGE REFERENCE UNITS LAB L501.0100 74-106 mg/dL High GLU 128 Result Comment: Fasting Glucose result greater than or equal to 126 mg/dL suggests DIABETES MELLITUS per A.D.A. criteria. Please note revised GLUCOSE reference range effective 2017. LAB L501.1000 7-18 mg/dL Normal BUN 16 LAB L501.1100 0.70-1.30 mg/dL Normal CREAT,SERUM 1.04 Result Comment: The validity of the calculated GFR AND GFRAA in patients over 70 years has not been determined. Clinical correlation is essential. LAB L501.1110 >60 mL/min Normal EST GFR 78 Result Comment: Non- GFR Calc LAB L501.1115 >60 mL/min Normal EST GFR - AA 94 Result Comment: GFR Calc LAB L501.1255 ml/min Normal Estimated CRCL 88.56 LAB L501.1300 10-20 RATIO Normal BUN/CRE 15.4 LAB L501.2200 8.5-10 mg/dL Low .1 CA 7.9 LAB L501.5300 136-14 mmol/L Normal 5 NA 143 LAB L501.5600 3.5-5. mmol/L Normal 1 K 3.8 LAB L501.5900 98-107 mmol/L High CL 109 LAB L501.6100 21.0-3 mmol/L Normal 2.0 CO2 29.0 LAB L501.6200 5-15 Normal GAP 5 Performed By: #### L500.2500, L501.4010 #### [facility] [address] [place], [address] TROPONIN-I Collected: 07/04/2018 Status: F Source: CRUM 5:08 AM [facility] REPOSITORY Order Comment: 'TROP' Serial specimen #1, #2 or #3: 3 'TROP' Serial specimen #1, #2, #3, or #4: 3 TYPE CODE TESTS RESULT OUT OF RANGE REFERENCE UNITS LAB L501.4010 <0.045 ng/mL Normal 0.030 TROPONIN-I Result Comment: TROPONIN-I EXPECTED VALUES <0.045 Negative 0.045 - 0.590 Consistent with Cardiac Damage > OR = 0.600 Critical Value Not every elevated troponin is indicative of [place]. These values should be used with clinical judgement in examining the patient's clinical picture for diagnosis. To establish a diagnosis of [place] versus myocardial injury, there must be a demonstrated rise and/or fall in the troponin values, in addition to ischemic symptoms, EKG changes, new regional wall motion abnormality, and/or angiographical evidence. PLEASE NOTE: REFERENCE RANGES EDITED 18 Performed By: #### L500.2500, L501.4010 #### [facility] [address] [place], [place], [address] PROTHROMBIN TIME W/INR Collected: 07/04/2018 Status: F Source: CRUM 5:08 AM [facility] REPOSITORY TYPE CODE TESTS RESULT OUT OF RANGE REFERENCE UNITS LAB L300.4150 11.7-14.9 SECONDS Normal PROTIME 13.1 LAB L300.4200 Normal INR 1.0 Performed By: #### L300.3900 #### [facility] [address] [place], [address] BEDSIDE GLUCOSE Collected: 07/04/2018 Status: F Source: KAREN 5:08 AM [facility] REPOSITORY TYPE CODE TESTS RESULT OUT OF REFERENCE UNITS RANGE LAB L501.080 70-110 mg/dL High BEDSIDE GLU 120 Result Comment: MANAGEMENT OF PATIENT CARE PER NURSING PROTOCOL Performed By: #### L501.080 #### [facility] Point of Care [address] [place] [address] PARTIAL THROMBOPLAST Collected: 07/04/2018 Status: F Source: KAREN TIME 5:08 AM [facility] REPOSITORY TYPE CODE TESTS RESULT OUT OF RANGE REFERENCE UNITS LAB L300.4310 24.1-36.2 Seconds Normal PTT 29.5 Performed By: #### L300.4310 #### [facility] [address] [place], [address] HISTORY AND PHYSICAL Observed: 07/04/2018 Status: F Source: KAREN EXAM 1:41 AM [facility] REPOSITORY [facility] Medical Records Department [address] [place] [address] History and Physical 07/03/18 2106 MR#: [id number] Acct: [id number] Name: KALYANI LIVINGSTON Rep #: [id number] : 1960 57 From: Anil Palmer MD PCP: Rosario Arroyo DO Status: ADM ZAYRA Y Location: [place] [address] Problem List (1) Hypotension Status: Acute (2) Abnormal EKG Status: Acute (3) RASHAWN (acute kidney injury) Status: Acute (4) HTN (hypertension) Status: Chronic Qualifiers: Hypertension type: essential hypertension Qualified Code(s): I10 - Essential (primary) hypertension (5) Uncontrolled type 2 diabetes mellitus Status: Chronic (6) Smokeless tobacco use Status: Chronic History of Present Illness Date of Admission: 07/03/18 Chief Complaint: Generalized weakness The patient is a 57 year old M with a significant history of hypertension, diabetes mellitus type 2, CAD status post stents and still with 85% stenosis proximal diagonal; medical noncompliance who presented with generalized weakness and near fall. Patient reported that on the day of admission he noticed that he has been weak all day. He went to an auction and was getting up and was about to fall. Subsequently he was brought to the emergency department. At emergency department his blood pressure was noted to be severely low but he responded to IV fluids. Patient reported to me that he took his blood pressure medication but he did not take his metformin or insulin today. However he reported to the emergency department doctor that he took his medication for diabetes today. Cardiology was consulted because patient had a T wave inversion in precordial leads which was new. Per conversation between ED doctor and mainframe systems programmer; recommendations are to trend troponin; and Dr. Morley who is very familiar with patient will follow up patient in a.m. . At the ED; patient was noted to have severely elevated creatinine above his baseline. Past Medical History Past Medical History (Chronic Problems): Chronic Problems (Last Reviewed 07/03/18 @ 21:49 by Anil Palmer MD) Tobacco chew use (Chronic) PFO (patent foramen ovale) (Chronic) Diabetes (Chronic) HTN (hypertension) (Chronic) Hyperlipidemia (Chronic) Smokeless tobacco use (Chronic) Uncontrolled type 2 diabetes mellitus (Chronic) CAD (coronary artery disease) (Chronic) Acute cerebrovascular accident of cerebellum (Chronic) CVA (cerebral vascular accident) (Chronic) S/P PTCA (percutaneous transluminal coronary angioplasty) (Chronic) Noncompliance with medication regimen (Chronic) Medical History: Medical History (Last Reviewed 07/04/18 @ 01:38 by Anil Palmer MD) Chest pain at rest (Acute) R07.9 Tobacco chew use (Chronic) Z72.0 RASHAWN (acute kidney injury) (Acute) N17.9 Chest pain (Acute) R07.9 Abnormal stress test (Acute) R94.39 PFO (patent foramen ovale) (Chronic) Q21.1 Diabetes (Chronic) E11.9 HTN (hypertension) (Chronic) I10 Hyperlipidemia (Chronic) E78.5 Smokeless tobacco use (Chronic) Z72.0 Uncontrolled type 2 diabetes mellitus (Chronic) E11.65 CAD (coronary artery disease) (Chronic) I25.10 Acute cerebrovascular accident of cerebellum (Chronic) I63.9 CVA (cerebral vascular accident) (Chronic) I63.9 Noncompliance with medication regimen (Chronic) Z91.14 Allergies ampicillin Allergy (Verified 07/03/18 18:07) Swelling ibuprofen [From Motrin] Allergy (Verified 07/03/18 18:07) Swelling SEA FOOD Allergy (Uncoded 07/03/18 18:07) Swelling Home Medications: Ambulatory Orders Medication Instructions Recorded Surgical History: Surgical History (Last Reviewed 07/04/18 @ 01:38 by Anil Palmer MD) S/P PTCA (percutaneous transluminal coronary angioplasty) (Chronic) Z98.61 Surgical History: angioplasty, - - PCI, ankle, hip surgery, stomach surgery, neck surgery. Psychiatric History: No pertinent psych hx Smoking Status: Current every day smoker Tobacco Use: Vapor Alcohol: None - *Family History Maternal History Items: Diabetes Paternal History Items: Heart Disease Sibling History Items: Heart Disease - CAD Review of Systems Constitutional: Reports: Weakness. Denies: Chills, Fever, Weight Change Eyes: Denies: Blurred vision, Drainage HEENT: Denies: Head Aches, Sinus Congestion, Sinus Drainage Cardiovascular: Denies: Chest Pain, Palpitations Respiratory: Denies: Cough, Shortness of breath at rest, Sputum production Gastrointestinal: Denies: Abdominal Pain, Nausea, Vomiting Genitourinary: Denies: Dysuria Musculoskeletal: Denies: Joint Pain, Joint Tenderness Skin: Denies: Rash, Wounds Neurological: Denies: Numbness, Tingling, Focal weakness Psychiatric: Denies: Anxiety, Depression, Homicidal Ideations, Suicidal Ideations Hematologic/ Lymphatic: Denies: Easy Bruising, Easy Bleeding VTE Information - Inpt Only VTE Present on Admission: No VTE Pharm Prophylaxis ordered?: Yes Patient Problems: Active and Suspected Problems (Last Reviewed 07/03/18 @ 21:49 by Anil Palmer MD) Hypotension (Acute) Abnormal EKG (Acute) - Physical Exam General: Alert, Oriented x3, Cooperative HEENT: Atraumatic, PERRLA, EOMI, Normocephalic Neck: Supple, No JVD, Negative Carotid Bruits Lungs: Clear to auscultation, Normal air movement Cardiovascular: Regular rate, No murmurs Abdomen: Bowel Sounds Present, Soft, Non Tender Extremities: No edema, Capillary Refill Less than 3 Seconds Skin: No rashes, No breakdown Musculoskeletal: No Tenderness to Palpation of Joints or Extremities Neurological: Cranial nerves II-XII grossly intact Psych/Mental Status: Normal Affect, Appropriate Vital Signs Temp Pulse Resp BP Pulse Ox 95.4 F L 63 16 112/82 H 99 07/03/18 18:07 07/03/18 20:15 07/03/18 20:15 07/03/18 20:15 07/03/18 20:15 Oxygen Delivery Method Room Air Weight: 83.915 kg Body Mass Index (BMI) 24.4 Finger Stick Blood Glucose 391 Laboratory Tests Past 24 Hrs POC Glucose POC Glucose 186 H Assessment/Plan All Active Problems (Last Reviewed 07/03/18 @ 21:49 by Anil Palmer MD) Hypotension (Acute) Abnormal EKG (Acute) Chest pain at rest (Acute) RASHAWN (acute kidney injury) (Acute) Chest pain (Acute) Abnormal stress test (Acute) The patient is a 57 year old M with a significant history of hypertension, diabetes mellitus type 2, CAD status post stents and still with 85% stenosis in proximal diagonal artery; medical noncompliance who presented with generalized weakness and near fall and found to have hypotension; hyperglycemia and elevated creatinine above his baseline; and significant EKG changes. RASHAWN His creatinine was 1.44. His baseline creatinine is is about 1. BUN over creatinine is 13.2. Urinary sodium and urine creatinine ordered. Gentle IV hydration. Avoid nephrotoxins. Generalized weakness and near fall This could be due to hypovolemia. Orthostatic blood pressure Vitamin B12 within normal range. Low Vitamin D level; supplementation ordered. PT and OT to work with patient on strengthening and balance. Hypotension This could be due to poor intake and osmotic diuresis from hyperglycemia. Less likely from overdose from antihypertensive medication. His sodium is within normal range. Patient responded to fluid. Normal saline IV hydration continued. Patient during his course of stay has become hypertensive emergency patient anti-hypertensive medications to be restarted. We will continue IV hydration for RASHAWN Diabetes mellitus type 2 On admission blood glucose was uncontrolled, but later and without any intervention his blood glucose fell into the normal range. Reportedly he takes metformin; as well as basal and prandial or correction scale insulin at home. We will hold her metformin since it is too early in his admission. Correction scale insulin ordered. Importantly patient will be n.p.o. until cardiology sees him. Abnormal EKG Independent review of EKG showed T wave flattening in leads II; and T wave inversion in leads III; aVF; V1; V2; V3; V4; V5; and V6. Review of old records showed a EKG on May 21, 2018 did not have these T wave abnormalities. Received aspirin 325 emergency department. Baby aspirin daily Home high intensity statin continued First troponin in the ED was unremarkable. Trend troponin. Cardiology consult. Hypertension. During the course of his stay his blood pressure elroy above the normal range On his med profile is a couple of blood pressure medications. Will start him on only Norvasc for now; and add prn Hydralazine IV. Trend BP. Tobacco abuse Patient reportedly smokes smokeless tobacco Consult to smoking cessation. Declined nicotine patch CAD Reports history of stents. Review of old records showed that on 05/21/2018 cardiac cath showed 85% stenosis in proximal diagonal. Continue baby aspirin and high intensity statin as above. DVT prophylaxis Subcutaneous Lovenox. Code Visit OBSV E AND M: [id number] Initial observation care L3 07/04/18 0141 <Electronically signed by Anil Palmer MD> Date Anil Palmer MD Cosigner Signature: Date (if applicable) CC: Anil Palmer MD; Rosario Arroyo DO Signed TROPONIN-I Collected: 07/04/2018 Status: F Source: KAREN 1:22 AM [facility] REPOSITORY Order Comment: 'TROP' Serial specimen #1, #2 or #3: 2 TYPE CODE TESTS RESULT OUT OF RANGE REFERENCE UNITS LAB L501.4010 <0.045 ng/mL Normal 0.023 TROPONIN-I Result Comment: TROPONIN-I EXPECTED VALUES <0.045 Negative 0.045 - 0.590 Consistent with Cardiac Damage > OR = 0.600 Critical Value Not every elevated troponin is indicative of [place]. These values should be used with clinical judgement in examining the patient's clinical picture for diagnosis. To establish a diagnosis of [place] versus myocardial injury, there must be a demonstrated rise and/or fall in the troponin values, in addition to ischemic symptoms, EKG changes, new regional wall motion abnormality, and/or angiographical evidence. PLEASE NOTE: REFERENCE RANGES EDITED 18 Performed By: #### L501.4010 #### [facility] [address] [place], [address] EMERGENCY DEPARTMENT Observed: 07/03/2018 Status: F Source: CRUM SUMMARY 11:19 PM [facility] REPOSITORY [facility] Medical Records Department [address] [place] [address] Emergency Department Summary 07/03/18 2101 MR#: [id number] Acct: [id number] Name: KALYANI LIVINGSTON Rep #: [id number] : 1960 57 From: Edgardo Bray MD PCP: Rosario Arroyo DO Status: ADM ZAYRA - ER Visit Summary Date of Service: 07/03/18 Chief Complaint: Lightheaded History of Present Illness: The patient is a [address] Arroyo. He is a poor informant. Patient presents complaining that he is lightheaded. It worsens when he stands. He has not passed out. He also complains of generalized weakness. Denies any other complaints. Physical Examination: Vitals: 95.4, 72/49, 69, 12, 100% on room air which is not hypoxic. General: Well-nourished and well-developed. Head: Normocephalic atraumatic. Neck: Supple, no lymphadenopathy. No JVD. Nontender. Cardiovascular: Regular rate and rhythm. No murmurs. Respiratory: No respiratory distress. Clear to auscultation bilaterally. Abdominal: Soft, nontender, nondistended, normal bowel sounds. No guarding, rebound, or peritoneal signs. Back: Nontender. Extremities: Nontender, no edema. Skin: Normal color, no rash. Neurologic: Alert and oriented 3. Cranial nerves II through XII are intact. Normal strength and sensation. Psych: Depressed affect. Test Results: EKG is sinus at 67 with T wave inversions over the precordium as well as in leads I and aVL. These T wave inversions are new since last month. Initial troponin 0 0.022. Chem-7 is more for BUN of 19, creatinine 1.44, calcium of 8.4. Lactic acid is 1.9. CBC is marked for 7 neutrophils 77 lymphocytes of 15. Chest x-ray shows no acute disease. Emergency Department Course and Treatment: Patient was given 2 L of normal saline IV and his pressure has increased into the 130s systolic. Due to the new T wave inversions patient was given aspirin p.o. I reviewed his prior records. He had a heart catheterization in May of this year that showed him to have an 85% diagonal stenosis as well as a occluded stent in the RCA and distal RCA subtotally occluded. He did not have stents placed at that time because of his history of medical noncompliance. Currently he is denying chest pain. Treatment Plan: The patient was discussed with Dr. Bains and Dr. Palmer. He will be admitted to the hospital for further evaluation and treatment. Disposition: Admitted in improved condition. Impression: 1. Dehydration. 2. Acute kidney injury. 3. New T wave inversions. 4. Hypotension, resolved. This note was generated with [employer] dictation software. It may contain incorrect words, spelling, and punctuation that were not noted in review of the chart prior to signing ED Disposition - Plan for ED Patient: Chief Complaint: Fatigue Referrals: Rosario Arroyo, DO [Primary Care Provider] - What to do if you have Problems For any increased pain, shortness of breath, bleeding, nausea or vomiting, chest pain, or any unexpected problems, contact your Primary Care Provider. Call [facility] ([phone]) or report to the closest Emergency Room. Call 911 if necessary. 07/03/18 0788 <Electronically signed by Edgardo Bray MD> Date Edgardo Bray MD Cosigner Signature (If Indicated): Date CC: Rosario Arroyo DO BEDSIDE GLUCOSE Collected: 07/03/2018 Status: F Source: KAREN 10:36 PM [facility] REPOSITORY TYPE CODE TESTS RESULT OUT OF RANGE REFERENCE UNITS LAB L501.080 70-110 mg/dL Normal BEDSIDE GLU 105 Result Comment: MANAGEMENT OF PATIENT CARE PER NURSING PROTOCOL Performed By: #### L501.080 #### [facility] Point of Care [address] [place], [place] [id number] URINALYSIS, COMPLETE Collected: 07/03/2018 Status: F Source: CRUM 10:05 PM [facility] REPOSITORY Order Comment: Order Date: 07/03/18 How was Urine Obtained? CLEAN CATCH TYPE CODE TESTS RESULT OUT OF RANGE REFERENCE UNITS LAB L400.3000 Yellow COLOR Normal Yellow LAB L400.3050 Clear Normal CLARITY Clear LAB L400.3200 Normal mg/dl High GLUCOSE, UR 100 LAB L400.3300 Negative mg/dL Normal BILIRUBIN URINE Negative LAB L400.3400 Negative mg/dl Normal KETONE UR Negative LAB L400.3465 1.002-1.030 Normal SP.GR. DIPSTX 1.020 LAB L400.3550 5.0 - 8.0 pH UR Normal 6.0 LAB L400.3600 Negative mg/dl High PROT 30 DIPSTX LAB L400.3700 Normal mg/dl Normal UROBILI Normal LAB L400.3750 Negative Normal NITRITE UR Negative LAB L400.3780 Negative /ul Normal OCCULT BLOOD-UR Negative LAB L400.3800 Negative /ul LEUK Normal ESTERASE Negative LAB L400.4050 0-5 /hpf WBC 0 Normal SEEN LAB L400.4100 0-5 /hpf 0 Normal RBC-UA SEEN LAB L400.4150 0-5 /hpf SQUAM Normal EPI 0-5 SEEN LAB L400.4300 None Seen /hpf 0 Normal BACTERIA SEEN LAB L400.4350 <or=2+ /hpf 0 Normal MUCUS, URINE SEEN Performed By: #### L400.0001 #### [facility] [address] [place], [place], [address] LACTIC ACID Collected: 07/03/2018 Status: F Source: CRUM 6:37 PM [facility] REPOSITORY Order Comment: Yes/No query for Sepsis Lactate Rule Y TYPE CODE TESTS RESULT OUT OF RANGE REFERENCE UNITS LAB L503.6005 0.4-2.0 mmol/L Normal LACTIC ACID 1.9 Performed By: #### L503.6005 #### [facility] [address] [place], [address] CHEST 1 VIEW Observed: 07/03/2018 Status: F Source: KAREN (PORTABLE) 6:26 PM [facility] REPOSITORY [facility] Imaging Services [address] [place] [address] Chest 1 View (Portable) MR#: [id number] Acct: [id number] Name: KALYANI LIVINGSTON Rep #: [id number] : 1960 M 57 From: Rosemary Cr MD PCP: Rosario Arroyo DO Status: REG ER Study: Chest 1 View (Portable) Date of Exam: 07/03/18 Exam# [id number] Ordering Dr: Edgardo Bray MD STUDY: X-RAY CHEST REASON FOR EXAM: Male, 57 years old. Increased fatigue. TECHNIQUE: Single frontal view of the chest. COMPARISON: May 20, 2018 FINDINGS: The lungs are clear and expanded. There is no demonstrated pleural abnormality. Normal size heart. Normal mediastinum and gilbert. Normal visualized pulmonary arteries. Normal visualized aortic arch and descending thoracic aorta. Normal visualized thoracic spine. Normal visualized ribs, clavicles, and shoulders. There is no demonstrated abnormality of the visualized soft tissue structures of the upper abdomen. RAD/Chest 1 View (Portable) IMPRESSION: No acute cardiopulmonary process. Electronically Signed: Rosemary Cr MD at 19:24 EDT Tel , Service support , CC: Rosario Arroyo DO; Edgardo Bray MD Label Fuser Tender: Signed CBC W/DIFF, AUTOMATED Collected: 07/03/2018 Status: F Source: CRUM 6:18 PM [facility] REPOSITORY TYPE CODE TESTS RESULT OUT OF RANGE REFERENCE UNITS LAB L100.1000 4.4-11.0 K/mm3 Normal WBC 10.6 LAB L100.1200 4.6-6.2 M/mm3 Normal RBC 4.63 LAB L100.1300 13.0-16.5 g/dl Normal HGB 13.8 LAB L100.1400 40-54 % Normal HCT 42.2 LAB L100.1500 80-94 fL Normal MCV 91.1 LAB L100.1600 27.0-32.0 pg Normal MCH 29.8 LAB L100.1700 32-36 g/gl Normal MCHC 32.7 LAB L100.1810 11.6-14.6 % Normal RDW CV 13.6 LAB L100.1820 35.1-43.9 fl High RDW SD 45.0 LAB L100.1900 150-450 K/mm3 Normal PLT 261 LAB L100.2000 6.2-12.0 fl Normal MPV 11.1 LAB L100.2100 47-70 % High NEUT% 77.2 LAB L100.2200 19-41 % Low LY% 14.6 LAB L100.2300 0-10 % Normal MONO% 6.1 LAB L100.2400 0-5 % Normal EO% 1.5 LAB L100.2500 0-1 % Normal BASO% 0.4 LAB L100.2550 0.0-0.9 % Normal IM GRAN % 0.200 Result Comment: IG% - Immature Granulocytes (promyelocytes, myelocytes and metamyelocytes) > 1% indicates that a LEFT SHIFT is Present. LAB L100.2620 2.0-7.7 X10 3/uL High Absolute Neut 8.2 LAB L100.2720 0.83-4.51 X10 3/ul Normal Absolute Lymph 1.54 Performed By: #### L100.0100 #### [facility] [address] [place], [address] BASIC METABOLIC Collected: 07/03/2018 Status: F Source: KAREN PROFILE ([facility]) 6:18 PM [facility] REPOSITORY TYPE CODE TESTS RESULT OUT OF RANGE REFERENCE UNITS LAB L501.0100 74-106 mg/dL High GLU 227 Result Comment: Glucose result greater than or equal to 200 mg/dL suggests DIABETES MELLITUS per A.D.A. criteria. Please note revised GLUCOSE reference range effective 2017. LAB L501.1000 7-18 mg/dL High BUN 19 LAB L501.1100 0.70-1.30 mg/dL High CREAT,SERUM 1.44 Result Comment: The validity of the calculated GFR AND GFRAA in patients over 70 years has not been determined. Clinical correlation is essential. LAB L501.1110 >60 mL/min Low EST GFR 54 Result Comment: Non- GFR Calc LAB L501.1115 >60 mL/min Normal EST GFR - AA 65 Result Comment: GFR Calc LAB L501.1255 ml/min Normal Estimated CRCL 63.96 LAB L501.1300 10-20 RATIO Normal BUN/CRE 13.2 LAB L501.2200 8.5-10 mg/dL Low .1 CA 8.4 LAB L501.5300 136-14 mmol/L Normal 5 NA 138 LAB L501.5600 3.5-5. mmol/L Normal 1 K 4.3 LAB L501.5900 98-107 mmol/L Normal CL 103 LAB L501.6100 21.0-3 mmol/L Normal 2.0 CO2 29.0 LAB L501.6200 5-15 Normal GAP 6 Performed By: #### L500.2500, L501.4010 #### [facility] [address] [facility] [address] [place], [place], [address] TROPONIN-I Collected: 07/03/2018 Status: F Source: CRUM 6:18 PM [facility] REPOSITORY TYPE CODE TESTS RESULT OUT OF RANGE REFERENCE UNITS LAB L501.4010 <0.045 ng/mL Normal 0.022 TROPONIN-I Result Comment: TROPONIN-I EXPECTED VALUES <0.045 Negative 0.045 - 0.590 Consistent with Cardiac Damage > OR = 0.600 Critical Value Not every elevated troponin is indicative of [place]. These values should be used with clinical judgement in examining the patient's clinical picture for diagnosis. To establish a diagnosis of [place] versus myocardial injury, there must be a demonstrated rise and/or fall in the troponin values, in addition to ischemic symptoms, EKG changes, new regional wall motion abnormality, and/or angiographical evidence. PLEASE NOTE: REFERENCE RANGES EDITED 18 Performed By: #### L500.2500, L501.4010 #### [facility] [address] [place], [address] VITAMIN B12 Collected: 07/03/2018 Status: F Source: KAREN 6:18 PM [facility] REPOSITORY TYPE CODE TESTS RESULT OUT OF RANGE REFERENCE UNITS LAB L503.0105 211-911 pg/mL Normal Vitamin B12 360 Performed By: #### L503.0105, L506.1000 #### [facility] [address] [place], [address] VITAMIN D,25 HYDROXY Collected: 07/03/2018 Status: F Source: KAREN 6:18 PM [facility] REPOSITORY TYPE CODE TESTS RESULT OUT OF REFERENCE UNITS RANGE LAB L506.1000 29.95-100.01 ng/mL Low Vitamin D 17.1 25-OH Result Comment: Vitamin D 25(OH) Status Range Deficiency <20 ng/mL (50nmol/L) Insuffciency 20 - 30 ng/mL (50 - 75 nmol/L) Sufficiency 30 - 100 ng/mL (75 - 250 nmol/L) Toxicity >100 ng/mL (>250 nmol/L) Performed By: #### L503.0105, L506.1000 #### [facility] [address] [place], [address] BEDSIDE GLUCOSE Collected: 07/03/2018 Status: F Source: KAREN 6:16 PM [facility] REPOSITORY TYPE CODE TESTS RESULT OUT OF REFERENCE UNITS RANGE LAB L501.080 70-110 mg/dL High BEDSIDE GLU 186 Result Comment: MANAGEMENT OF PATIENT CARE PER NURSING PROTOCOL Performed By: #### L501.080 #### [facility] Point of Care [address] [place] [address] DISCHARGE SUMMARY Observed: 05/24/2018 Status: F Source: KAREN 8:40 AM [facility] REPOSITORY [facility] Medical Records Department [address] [place] [address] Discharge Summary 05/22/18 1359 MR#: [id number] Acct: [id number] Name: KALYANI LIVINGSTON Rep #: [id number] : 1960 57 From: Arminda Simmons MD PCP: Rosario Arroyo DO Status: DIS ZAYRA Y Location: [facility] [id number] Discharge Date and Diagnosis Date of Admission: 05/20/18 Date of Discharge: 05/22/18 - Primary Discharge Diagnosis Active and Suspected Problems Chest pain at rest (Acute) RASHAWN (acute kidney injury) (Acute) Chest pain (Acute) Abnormal stress test (Acute) Tobacco dependency CAD Hypertensive urgency - Secondary Discharge Diagnosis Chronic Problems Tobacco chew use (Chronic) PFO (patent foramen ovale) (Chronic) Diabetes (Chronic) HTN (hypertension) (Chronic) Hyperlipidemia (Chronic) Smokeless tobacco use (Chronic) Uncontrolled type 2 diabetes mellitus (Chronic) CAD (coronary artery disease) (Chronic) Acute cerebrovascular accident of cerebellum (Chronic) CVA (cerebral vascular accident) (Chronic) S/P PTCA (percutaneous transluminal coronary angioplasty) (Chronic) Noncompliance with medication regimen (Chronic) Hospital Course and Treatment Operations: None Procedures: Cardiac catheterization, Nuclear stress test Summary of Care Provided: The patient is a 57 year old M past medical history of CAD status post stents, type II DM, hypertension, hyperlipidemia, chronic nicotine use who comes in with complaints of chest pain which is retrosternal, occurring at rest, relieved with 2 nitroglycerin and 4 baby aspirin. His initial EKG shows no acute ST-T changes. His troponins were negative. He underwent a nuclear stress test that was reported as abnormal. Cardiology was consulted and he underwent further cardiac catheterization. Findings in cardiac cath included EF of 50%, pechanga multivessel CAD for which medical therapy was recommended because patient has history of medication noncompliance. 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 Morley here. The plan will be for him to come back to see Dr. Morley in 2-4 weeks and have a consideration made for PCI to be done. His blood pressure was noted to be elevated and he was managed as hypertensive emergency with changes to medications including Norvasc, metoprolol. Patient also had acute kidney injury which improved with IV fluids. Patient had his medications refilled at discharge. He was strongly advised to be compliant with his medications and to stop smoking. Discharge Diet: Low fat/ Low Cholesterol, 2000 mg Sodium Diet Discharge Activity: Return to Normal Activity Home Medications: Medications to take at Discharge Doxepin HCl 20 mg PO QHS 09/18/17 Oxycodone HCl/Acetaminophen [Percocet 10-325 mg Tablet] 10 - 325 mg PO Q6H PRN PRN 09/18/17 Atorvastatin Calcium [Lipitor] 80 mg PO QHS #30 tab 09/20/17 Aspirin E.C. [Ecotrin] 81 mg PO DAILY@0800 #90 tab 05/21/18 Metoprolol Tartrate [Lopressor (beta nanette)] 50 mg PO BID #90 tab 05/21/18 Amlodipine [Norvasc] 10 mg PO DAILY #30 tab 05/22/18 Isosorbide Mononitrate [Imdur] 30 mg PO DAILY #30 tab 05/22/18 Lisinopril [Zestril] 20 mg PO BID #30 tab 05/22/18 Nitroglycerin [Nitrostat] 0.4 mg SUBLINGUAL Q5M PRN #10 tab 05/22/18 Following Prescrptions Were Given to Patient: Amlodipine [Norvasc] 10 mg PO DAILY #30 tab Aspirin E.C. [Ecotrin] 81 mg PO DAILY@0800 #90 tab Isosorbide Mononitrate [Imdur] 30 mg PO DAILY #30 tab Nitroglycerin [Nitrostat] 0.4 mg SUBLINGUAL Q5M PRN #10 tab PRN Reason: Chest Pain Lisinopril [Zestril] 20 mg PO BID #30 tab Metoprolol Tartrate [Lopressor (beta nanette)] 50 mg PO BID #90 tab Primary Care Physician: Rosario Arroyo DO [Primary Care Provider] - Please follow up with your Primary Care Physician in: within 2 weeks Please Follow Up With: Kwabena Morley MD When: within 2 weeks Disposition: Home Minutes spent on discharge:: 35 Patient Condition:: Stable Medical Necessity - Tobacco Use Smoking Status: Never smoker Tobacco Use: Chew Meaningful Use Info Meaningful Use Diagnoses (Choose all that apply): None applicable Code Visit Inpatient E AND M: 00942 Disch Hosp 05/24/18 0840 <Electronically signed by Arminda Simmons MD> Date Arminda Simmons MD Cosigner Signature (if applicable): Date CC: Arminda Simmons MD; Rosario Arroyo DO Signed DISCHARGE INSTRUCTION Observed: 05/22/2018 Status: F Source: KAREN 2:07 PM [facility] REPOSITORY [facility] Medical Records Department [address] [place] [address] Instructions for Home/Discharge Instructions 05/22/18 1354 MR#: [id number] Acct: [id number] Name: KALYANI LIVINGSTON Rep #: [id number] : 1960 57 From: Arminda Simmons MD PCP: Rosario Arroyo DO Status: ADM ZAYRA ADDENDUM by Arminda Simmons MD on 05/22/18 at 1407 Follow-up with Dr. Morley in 2-4 weeks Date Arminda Simmons MD cc: Rosario Arroyo DO; Kwabena Morley MD * Signed - Discharge Diagnoses Current Active Problems: Current Active and Chronic Problems Chest pain at rest (Acute) Tobacco chew use (Chronic) RASHAWN (acute kidney injury) (Acute) Chest pain (Acute) Abnormal stress test (Acute) Reason(s) for Visit for Discharge Instructions: Chest pain You will use the following diet at home:: Cardiac Your food should be the consistency of: Regular Your liquids should be the consistency of: Regular/Thin Discharge Activity: Return to Normal Activity Additional Instructions: Continue to take all your medications. Follow a low fat, low salt diet. Follow-up with your PCP and cardiology, DR. Morley in 2 weeks Allergies/Adverse Reactions: Allergies ampicillin Allergy (Verified 05/20/18 16:15) Swelling ibuprofen [From Motrin] Allergy (Verified 05/20/18 16:15) Swelling SEA FOOD Allergy (Uncoded 05/20/18 16:15) Swelling Medications to take at Discharge Doxepin HCl 20 mg PO QHS 09/18/17 Oxycodone HCl/Acetaminophen [Percocet 10-325 mg Tablet] 10 - 325 mg PO Q6H PRN PRN 09/18/17 Atorvastatin Calcium [Lipitor] 80 mg PO QHS #30 tab 09/20/17 Aspirin E.C. [Ecotrin] 81 mg PO DAILY@0800 #90 tab 05/21/18 Metoprolol Tartrate [Lopressor (beta nanette)] 50 mg PO BID #90 tab 05/21/18 Amlodipine [Norvasc] 10 mg PO DAILY #30 tab 05/22/18 Isosorbide Mononitrate [Imdur] 30 mg PO DAILY #30 tab 05/22/18 Lisinopril [Zestril] 20 mg PO BID #30 tab 05/22/18 Nitroglycerin [Nitrostat] 0.4 mg SUBLINGUAL Q5M PRN #10 tab 05/22/18 The following prescriptions were given: Amlodipine [Norvasc] 10 mg PO DAILY #30 tab Aspirin E.C. [Ecotrin] 81 mg PO DAILY@0800 #90 tab Isosorbide Mononitrate [Imdur] 30 mg PO DAILY #30 tab Nitroglycerin [Nitrostat] 0.4 mg SUBLINGUAL Q5M PRN #10 tab PRN Reason: Chest Pain Lisinopril [Zestril] 20 mg PO BID #30 tab Metoprolol Tartrate [Lopressor (beta nanette)] 50 mg PO BID #90 tab Primary Care Physician: Rosario Arroyo DO [Primary Care Provider] - Please follow up with your Primary Care Physician in: within 2 weeks Test Results: Test results from this visit will be discussed in further detail at your follow-up appointment, if applicable. Please Follow Up With: Kwabena Morley MD When: within 2 weeks Proposed Discharge Date: 05/22/18 05/22/18 1359 <Electronically signed by Arminda Simmons MD> Date Arminda Simmons MD CC: Rosario Arroyo DO; Kwabena Morley MD 12 LEAD ELECTROCARDIOGRAM Observed: 05/22/2018 Status: F Source: CRUM 1:29 PM [facility] REPOSITORY [facility] Cardiovascular Services [address] [place] [address] 12 Lead EKG 05/20/18 205 MR#: [id number] Acct: [id number] Name: KALYANI LIVINGSTON Rep #: [id number] : 1960 57 From: Kwabena Mroley MD Attending Dr: Arminda Simmons MD Status: ADM ZAYRA Ordering Dr: Anil Palmer MD Date: 05/20/18 Location: U Sex: M C Admitted: 05/20/18 Test Reason : CP ADMISSION Blood Pressure : / mmHG Vent. Rate : 081 BPM Atrial Rate : 081 BPM P-R Int : 182 ms QRS Dur : 090 ms QT Int : 382 ms P-R-T Axes : 033 014 017 degrees QTc Int : 443 ms Normal sinus rhythm Possible Left atrial enlargement Nonspecific T wave abnormality Abnormal ECG Confirmed by MILLI GAXIOLA, KWABENA ([id number]), assistant production editor NAIMA CARTER ([id number]) on 05/22/2018 1:29:24 PM Referred By: MAGGIE Confirmed By:KWABENA MORLEY MD 05/22/18 1329 Date Kwabena Morley MD CC: Arminda Simmons MD; Anil Palmer MD; Rosario Arroyo DO Signed 12 LEAD ELECTROCARDIOGRAM Observed: 05/22/2018 Status: F Source: CRUM 1:25 PM [facility] REPOSITORY [facility] Cardiovascular Services [address] [place] [address] 12 Lead EKG 05/21/18 0530 MR#: [id number] Acct: [id number] Name: KALYANI LIVINGSTON Rep #: [id number] : 1960 57 From: Kwabena Morley MD Attending Dr: Arminda Simmons MD Status: ADM ZAYRA Ordering Dr: Anil Palmer MD Date: 05/21/18 Location: U Sex: M C Admitted: 05/20/18 Test Reason : AM EKG Blood Pressure : / mmHG Vent. Rate : 069 BPM Atrial Rate : 069 BPM P-R Int : 164 ms QRS Dur : 100 ms QT Int : 444 ms P-R-T Axes : 009 021 000 degrees QTc Int : 475 ms Normal sinus rhythm Nonspecific T wave abnormality Prolonged QT Abnormal ECG Confirmed by KWABENA MORLEY MD ([id number]), assistant production editor NAIMA CARTER ([id number]) on 05/22/2018 1:25:17 PM Referred By: MAGGIE Confirmed By:KWABENA MORLEY MD 05/22/18 1325 Date Kwabena Morley MD CC: Arminda Simmons MD; Anil Palmer MD; Rosario Arroyo DO Signed 12 LEAD ELECTROCARDIOGRAM Observed: 05/22/2018 Status: F Source: CRUM 1:03 PM [facility] REPOSITORY [facility] Cardiovascular Services [address] [place] [address] 12 Lead EKG 05/20/18 1618 MR#: [id number] Acct: [id number] Name: KALYANI LIVINGSTON Rep #: [id number] : 1960 57 From: Kwabena Morley MD Attending Dr: Arminda Simmons MD Status: ADM ZAYRA Ordering Dr: Rosario Joya MD Date: 05/20/18 Location: [facility] Sex: M C Admitted: 05/20/18 Test Reason : CP Blood Pressure : / mmHG Vent. Rate : 086 BPM Atrial Rate : 086 BPM P-R Int : 164 ms QRS Dur : 092 ms QT Int : 392 ms P-R-T Axes : 040 016 -11 degrees QTc Int : 469 ms Poor data quality, interpretation may be adversely affected Normal sinus rhythm Nonspecific ST and T wave abnormality Prolonged QT Abnormal ECG Confirmed by KWABENA MORLEY MD ([id number]), assistant production editor NAIMA CARTER ([id number]) on 05/22/2018 1:02:54 PM Referred By: SUNNY/MARCOS Confirmed By:KWABENA MORLEY MD 05/22/18 1302 Date Kwabena Morley MD CC: Arminda Simmons MD; Rosario Joya MD; Rosario Garcia BEDSIDE GLUCOSE Collected: 05/22/2018 Status: F Source: KAREN 12:14 PM [facility] REPOSITORY TYPE CODE TESTS RESULT OUT OF REFERENCE UNITS RANGE LAB L501.080 70-110 mg/dL High BEDSIDE GLU 133 Result Comment: MANAGEMENT OF PATIENT CARE PER NURSING PROTOCOL Performed By: #### L501.080 #### [facility] [place] [facility] Point of Care [address] [place] [address] BEDSIDE GLUCOSE Collected: 05/22/2018 Status: F Source: KAREN 6:49 AM [facility] REPOSITORY TYPE CODE TESTS RESULT OUT OF REFERENCE UNITS RANGE LAB L501.080 70-110 mg/dL High BEDSIDE GLU 116 Result Comment: MANAGEMENT OF PATIENT CARE PER NURSING PROTOCOL Performed By: #### L501.080 #### [facility] [place] [facility] Point of Care [address] [place] [address] HH, HEMOGLOBIN AND Collected: 05/22/2018 Status: F Source: KAREN HEMATOCRIT 6:00 AM [facility] REPOSITORY TYPE CODE TESTS RESULT OUT OF RANGE REFERENCE UNITS LAB L100.1300 13.0-16.5 g/dl Normal HGB 14.6 LAB L100.1400 40-54 % Normal HCT 43.8 Performed By: #### L100.0600 #### [facility] [place] [facility] [address] [place], [address] BASIC METABOLIC Collected: 05/22/2018 Status: F Source: KAREN PROFILE (BMP) 6:00 AM [facility] REPOSITORY TYPE CODE TESTS RESULT OUT OF RANGE REFERENCE UNITS LAB L501.0100 74-106 mg/dL High GLU 112 Result Comment: Fasting Glucose result from 100 to 125 mg/dL suggests IMPAIRED HOMEOSTASIS per A.D.A. criteria. Please note revised GLUCOSE reference range effective 2017. LAB L501.1000 7-18 mg/dL High BUN 19 LAB L501.1100 0.70-1.30 mg/dL Normal CREAT,SERUM 1.19 Result Comment: The validity of the calculated GFR AND GFRAA in patients over 70 years has not been determined. Clinical correlation is essential. LAB L501.1110 >60 mL/min Normal EST GFR 67 Result Comment: Non- GFR Calc LAB L501.1115 >60 mL/min Normal EST GFR - AA 81 Result Comment: GFR Calc LAB L501.1255 ml/min Normal Estimated CRCL 77.40 LAB L501.1300 10-20 RATIO Normal BUN/CRE 16.0 LAB L501.2200 8.5-10 mg/dL Normal .1 CA 8.8 LAB L501.5300 136-14 mmol/L Normal 5 NA 140 LAB L501.5600 3.5-5. mmol/L Normal 1 K 4.4 LAB L501.5900 98-107 mmol/L Normal CL 105 LAB L501.6100 21.0-3 mmol/L Normal 2.0 CO2 25.0 LAB L501.6200 5-15 Normal GAP 10 Performed By: #### L500.2500 #### [facility] [place] [facility] [address] [place] [address]. [place], [address] BEDSIDE GLUCOSE Collected: 05/21/2018 Status: F Source: KAREN 11:09 PM [facility] REPOSITORY TYPE CODE TESTS RESULT OUT OF REFERENCE UNITS RANGE LAB L501.080 70-110 mg/dL High BEDSIDE GLU 198 Result Comment: MANAGEMENT OF PATIENT CARE PER NURSING PROTOCOL Performed By: #### L501.080 #### [facility] [place] [facility] Point of Care [address] [place], [place] [address] [place] [address] BEDSIDE GLUCOSE Collected: 05/21/2018 Status: F Source: KAREN 4:57 PM [facility] REPOSITORY TYPE CODE TESTS RESULT OUT OF REFERENCE UNITS RANGE LAB L501.080 70-110 mg/dL High BEDSIDE GLU 121 Result Comment: MANAGEMENT OF PATIENT CARE PER NURSING PROTOCOL Performed By: #### L501.080 #### [facility] [place] [facility] Point of Care [address] [place] [address] CONSULTATION Observed: 05/21/2018 Status: F Source: KAREN 12:45 PM [facility] REPOSITORY [facility] Medical Records Department [address] [place] [address] Consultation 05/21/18 1234 MR#: [id number] Acct: [id number] Name: KALYANI LIVINGSTON Rep #: [id number] : 1960 57 From: Kwabena Morley MD PCP: Rosario Arroyo DO Status: ADM ZAYRA Y Location: [place] [address] Problem List (1) Chest pain Status: Acute (2) Abnormal stress test Status: Acute (3) CAD (coronary artery disease) Status: Chronic Qualifiers: Coronary Disease-Associated Artery/Lesion type: unspecified vessel or lesion type [place] vs. transplanted heart: unspecified whether pechanga or transplanted heart Associated angina: angina presence unspecified Qualified Code(s): I25.10 - Atherosclerotic heart disease of [place] coronary artery without angina pectoris (4) S/P PTCA (percutaneous transluminal coronary angioplasty) Status: Chronic (5) Hyperlipidemia Status: Chronic Qualifiers: Hyperlipidemia type: unspecified Qualified Code(s): E78.5 - Hyperlipidemia, unspecified (6) HTN (hypertension) Status: Chronic Qualifiers: Hypertension type: essential hypertension Qualified Code(s): I10 - Essential (primary) hypertension (7) Diabetes Status: Chronic Qualifiers: Diabetes mellitus type: type 2 Diabetes mellitus jail insulin use: with termite inspector use Diabetes mellitus complication status: with unspecified complications Qualified Code(s): E11.8 - Type 2 diabetes mellitus with unspecified complications; Z79.4 - care home (current) use of insulin; 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 The patient also has a history of medication noncompliance. He states he has been having chest discomfort which occurs at any time. He states it is hard to describe his discomfort. It comes and goes. It is not necessarily associated with radiation to the neck, jaw, or upper extremities. He does not necessarily have associated nausea, emesis, or diaphoresis. He denies any obvious ongoing dyspnea, orthopnea, or PND or peripheral pitting edema. He states that he has undergone previous diagnostic cardiac catheterization and PCI at [facility] in [place], [place] in the past. He believes his last cardiovascular evaluation was approximately 4 years ago. He states he has had no cardiac evaluation since that time. He admits that he does not take his medications daily as recommended. His brother, who is present at the time, states his medications are in daily Dosepaks for him. However despite that he states he still does not take his medications every day as he is supposed to. The patient states he just forgets to . He has been evaluated at the hospital. His cardiac enzymes have been negative. His ECG has demonstrated sinus rhythm. He had a pharmacologic stress nuclear imaging study. It demonstrated findings compatible with a previous area of myocardial injury/infarction involving the basal to mid lateral segments with erum-infarct related myocardial ischemia. [] Past Medical History Allergies/Adverse Reactions: Allergies ampicillin Allergy (Verified 05/20/18 16:15) Swelling ibuprofen [From Motrin] Allergy (Verified 05/20/18 16:15) Swelling SEA FOOD Allergy (Uncoded 05/20/18 16:15) Swelling Home Medications: Ambulatory Orders Medication Instructions Recorded Past Medical History (Chronic Problems): Chronic Problems Tobacco chew use (Chronic) PFO (patent foramen ovale) (Chronic) Cerebrovascular disease (Chronic) Multiple acute ischemic strokes. Mild right facial and right upper extremity paresthesia. Diabetes (Chronic) HTN (hypertension) (Chronic) Hyperlipidemia (Chronic) Smokeless tobacco use (Chronic) CAD (coronary artery disease) (Chronic) CVA (cerebral vascular accident) (Chronic) S/P PTCA (percutaneous transluminal coronary angioplasty) (Chronic) Hyperglycemia (Chronic) Noncompliance with medication regimen (Chronic) Surgical History: angioplasty, - - PCI, ankle, hip surgery, stomach surgery, neck surgery. Psychiatric History: No pertinent psych hx - *Family History Maternal History Items: Diabetes Paternal History Items: Heart Disease Sibling History Items: Heart Disease - CAD Lives: Alone Smoking Status: Never smoker Tobacco Use: Chew Drugs: None Review of Systems - Review of Systems Cardiovascular: Reports: Chest Discomfort, Chest Discomfort at Rest Subjectve: This is a 57-year-old white male who appears to be resting comfortably at the moment in no acute distress. Objective: Vital Signs Temp Pulse Resp BP Pulse Ox 98.0 F 75 18 158/104 H 98 05/21/18 08:40 05/21/18 11:12 05/21/18 08:40 05/21/18 08:40 05/21/18 08:40 Oxygen Flow Rate (L/min) 2 Oxygen Delivery Method Room Air Weight: 177 lb 0.499 oz Body Mass Index (BMI) 23.3 Intake and Output for Last 24 Hours Intake Total 485 / 485 Balance 485 / 485 General: Awake, Alert, Oriented x 3, Cooperative, No Acute Distress HEENT: Atraumatic, Normocephalic Oral: Moist Mucosa Neck: Supple, Good ROM, No JVD Lungs: Clear to auscultation Cardiovascular: Regular Rhythm, Normal S1, Normal S2 Vascular: No Carotid Bruits Abdomen: Bowel Sounds Present, Soft, Non Tender Extremities: No Cyanosis, No Clubbing, No edema Lymphatic: No Lymph Node Enlargement Neurological: No Focal Motor or Sensory Deficit, CN II-XII Intact Psych/Mental Status: Flat Affect 05/20/18 20:50: Troponin I < 0.015 05/21/18 01:10: Troponin I < 0.015 05/21/18 05:10: WBC 6.9, RBC 4.76, Hgb 14.0, Hct 42.4, MCV 89.1, MCH 29.4, MCHC 33.0, RDW 13.7, RDW Differential 44.5 H, Plt Count 238, MPV 10.5 05/21/18 05:10: Sodium 142, Potassium 3.6, Chloride 106, Carbon Dioxide 27.0, Anion Gap 9, BUN 21 H, Creatinine 1.29, Est GFR (MDRD) Af Amer 74, Est GFR (MDRD) Non-Af 61, BUN/Creatinine Ratio 16.3, Glucose 131 H, Calcium 8.0 L 05/21/18 05:10: PT 13.9, INR 1.1, APTT 30.0 Rhythm: Sinus rhythm EKG: Sinus rhythm ECHO: 09/19/2017: Left ventricle: Reported as globally hypokinetic with an LVEF of 40%; mild TR Stress Test: As noted above Cardiac Cath: Unavailable for review at this time PCI: Unavailable for review at this time CXR: Preliminary evaluation: No acute cardiopulmonary disease process appreciated: Please see official report Assessment/Plan 1. Chest pain The patient has chest pain. He appears to have difficulty describing his chest pain. There are concerns based upon his cardiovascular risk factors, his previous diagnosis, and his abnormal pharmacologic stress nuclear imaging study that this may be related to underlying CAD and myocardial ischemia. At the present time his cardiac enzymes have been negative. His ECG is demonstrated no acute change. He will continue medical management as deemed appropriate. It was felt reasonable that he be reassessed in the cardiac catheterization laboratory. The procedure and risks were discussed with the patient in the presence of his brother. Both were in agreement to proceeding with the aforementioned evaluation and care plan. 2. Abnormal pharmacologic stress nuclear imaging study This does raise concern of his underlying CAD with an area of previous WY and erum-WY related myocardial ischemia. Thus he will continue medical management and evaluation as noted above. 3. CAD status post PCI The patient does not recall the details of his previous CAD and PCI history. An attempt will be made to retrieve outside medical records for continuity of care purposes. In the interim he will continue evaluation care as noted above. 4. Hyperlipidemia The patient will continue lipid-lowering therapy as deemed appropriate. 5. Hypertension The patient's blood pressure has been elevated. His medications being adjusted to bring his blood pressure under better control. 6. Diabetes mellitus The patient will continue evaluation care per internal medicine. Comment: The above was discussed with the patient and his brother. It was also stressed that the patient take his medications as prescribed to assist with his cardiovascular risk factors and various diagnoses. This note was generated with [employer] dictation software. It may contain incorrect words, spelling, and punctuation that were not noted in checking the note before signing. 05/21/18 1245 <Electronically signed by Kwabena Morley MD> Date Kwabena Morley MD Cosigner Signature (if applicable): Date CC: Rosario Arroyo DO; Kwabena Morley MD Signed BEDSIDE GLUCOSE Collected: 05/21/2018 Status: F Source: KAREN 12:25 PM [facility] REPOSITORY TYPE CODE TESTS RESULT OUT OF REFERENCE UNITS RANGE LAB L501.080 70-110 mg/dL High BEDSIDE GLU 126 Result Comment: MANAGEMENT OF PATIENT CARE PER NURSING PROTOCOL Performed By: #### L501.080 #### [facility] [place] [facility] Point of Care [address] [place] [address] STRESS REPORT Observed: 05/21/2018 Status: F Source: KAREN 11:05 AM [facility] REPOSITORY [facility] Cardiovascular Services [address] [place] [address] MR#: [id number] Acct: [id number] Name: KALYANI LIVINGSTON Rep #: [id number] : 1960 57 From: Kwabena Morley MD Primary Care: Rosario Arroyo DO Status: ADM ZAYRA Ordering Dr: Juan Antonio: Mihir Colmenares Stress Test Report Date: 05/21/2018 Procedure: Pharmacologic stress nuclear imaging study Indications: Chest pain; CAD; status post PCI Consent: Per the patient Procedure: The patient underwent pharmacologic (Regadenoson) evaluation with a peak heart rate of 91 beats per minute (55 predicted maximal heart rate) and a peak blood pressure of 162/118 mmHg. The baseline ECG demonstrated normal sinus rhythm. The peak pharmacologic ECG demonstrated subtle nonspecific ST/T-wave abnormality. There were no cardiac dysrhythmias pretest, during pharmacologic infusion, or recovery. There was no complaint of chest discomfort during pharmacologic infusion or recovery. The examination was discontinued secondary to completion of protocol. Impression: 1. Pharmacologic (Regadenoson) evaluation 2. Peak pharmacologic ECG with subtle nonspecific ST/T-wave abnormality. 3. There were no cardiac dysrhythmias pretest, during pharmacologic infusion, or recovery 4. Nuclear images pending Myocardial perfusion imaging study: Technique: The patient was injected with 11.8 millicuries of technetium 99m Cardiolite and subsequently rest SPECT Cardiolite nuclear imaging was obtained in the horizontal long, vertical long, and short axis views. The patient underwent pharmacologic (Regadenoson) evaluation with a peak heart rate of 91 beats per minute (55 % percent predicted maximal heart rate) and a peak blood pressure of 162/118 mmHg. The patient was injected with 33.8 millicuries of technetium 99m Cardiolite and subsequently stress SPECT Cardiolite nuclear imaging was obtained in the horizontal long, vertical long, and short axis views. A gated Cardiolite study at peak stress was obtained. Interpretation: Rest and stress SPECT Cardiolite nuclear imaging status post realignment, normalization, and attenuation correction demonstrate the appearance of diminished absence of myocardial perfusion/tracer uptake in portions of the basal to mid lateral segments which appears to be somewhat more prominent following stress as opposed to rest. There is diminished end systolic thickening and brightening in the aforementioned areas. The gated Cardiolite study demonstrates diminished myocardial thickening and inward wall motion in the aforementioned areas. The reported LVEF is 36%. Impression: 1. Rest and stress SPECT Cardiolite nuclear imaging demonstrate myocardial perfusion changes appearing compatible with an area of previous myocardial injury/infarction involving the basal to mid lateral segment with post stress myocardial perfusion changes appearing compatible with mild erum-infarct related myocardial ischemia. 2. The gated Cardiolite study reports an LVEF of 36 %. This note was generated with [employer] software. It may contain incorrect words, spelling, and punctuation that were not noted in checking the note before signing. 05/21/181104 <Electronically signed by Kwabena Morley MD> Date Kwabena Morley MD CC: Keenan Casanova; Rosario Arroyo DO Date Dictated: 05/21/181100 Date Transcribed: 05/21/181100 Label Fuser Tender: PM Signed BEDSIDE GLUCOSE Collected: 05/21/2018 Status: F Source: KAREN 6:31 AM [facility] REPOSITORY TYPE CODE TESTS RESULT OUT OF REFERENCE UNITS RANGE LAB L501.080 70-110 mg/dL High BEDSIDE GLU 120 Result Comment: MANAGEMENT OF PATIENT CARE PER NURSING PROTOCOL Performed By: #### L501.080 #### [facility] [place] [address] CBC-COMPLETE BLOOD CNT Collected: 05/21/2018 Status: F Source: KAREN NO DIFF 5:10 AM [facility] REPOSITORY TYPE CODE TESTS RESULT OUT OF RANGE REFERENCE UNITS LAB L100.1000 4.4-11.0 K/mm3 Normal WBC 6.9 LAB L100.1200 4.6-6.2 M/mm3 Normal RBC 4.76 LAB L100.1300 13.0-16.5 g/dl Normal HGB 14.0 LAB L100.1400 40-54 % Normal HCT 42.4 LAB L100.1500 80-94 fL Normal MCV 89.1 LAB L100.1600 27.0-32.0 pg Normal MCH 29.4 LAB L100.1700 32-36 g/gl Normal MCHC 33.0 LAB L100.1810 11.6-14.6 % Normal RDW CV 13.7 LAB L100.1820 35.1-43.9 fl High RDW SD 44.5 LAB L100.1900 150-450 K/mm3 Normal PLT 238 LAB L100.2000 6.2-12.0 fl Normal MPV 10.5 Performed By: #### L100.0500 #### [facility] [place] [facility] [address] [facility] [place], [place], [address] PROTHROMBIN TIME W/INR Collected: 05/21/2018 Status: F Source: KAREN 5:10 AM [facility] REPOSITORY TYPE CODE TESTS RESULT OUT OF RANGE REFERENCE UNITS LAB L300.4150 11.7-14.9 SECONDS Normal PROTIME 13.9 LAB L300.4200 Normal INR 1.1 Performed By: #### L300.3900, L300.4310 #### [facility] [place] [facility] [address] [place], [address] PARTIAL THROMBOPLAST Collected: 05/21/2018 Status: F Source: KAREN TIME 5:10 AM [facility] REPOSITORY TYPE CODE TESTS RESULT OUT OF RANGE REFERENCE UNITS LAB L300.4310 24.1-36.2 Seconds Normal PTT 30.0 Performed By: #### L300.3900, L300.4310 #### [facility] [place] [facility] [address] [place], [address] BASIC METABOLIC Collected: 05/21/2018 Status: F Source: KAREN PROFILE (BMP) 5:10 AM [facility] REPOSITORY TYPE CODE TESTS RESULT OUT OF RANGE REFERENCE UNITS LAB L501.0100 74-106 mg/dL High GLU 131 Result Comment: Fasting Glucose result greater than or equal to 126 mg/dL suggests DIABETES MELLITUS per A.D.A. criteria. Please note revised GLUCOSE reference range effective 2017. LAB L501.1000 7-18 mg/dL High BUN 21 LAB L501.1100 0.70-1.30 mg/dL Normal CREAT,SERUM 1.29 Result Comment: The validity of the calculated GFR AND GFRAA in patients over 70 years has not been determined. Clinical correlation is essential. LAB L501.1110 >60 mL/min Normal EST GFR 61 Result Comment: Non- GFR Calc LAB L501.1115 >60 mL/min Normal EST GFR - AA 74 Result Comment: GFR Calc LAB L501.1255 ml/min Normal Estimated CRCL 71.40 LAB L501.1300 10-20 RATIO Normal BUN/CRE 16.3 LAB L501.2200 8.5-10 mg/dL Low .1 CA 8.0 LAB L501.5300 136-14 mmol/L Normal 5 NA 142 LAB L501.5600 3.5-5. mmol/L Normal 1 K 3.6 LAB L501.5900 98-107 mmol/L Normal CL 106 LAB L501.6100 21.0-3 mmol/L Normal 2.0 CO2 27.0 LAB L501.6200 5-15 Normal GAP 9 Performed By: #### L500.2500 #### [facility] [place] [facility] [address] [place], [address] TROPONIN-I Collected: 05/21/2018 Status: F Source: CRUM 1:10 AM [facility] REPOSITORY Order Comment: 'TROP' Serial specimen #1, #2 or #3: 3 TYPE CODE TESTS RESULT OUT OF RANGE REFERENCE UNITS LAB L501.4010 <0.045 ng/mL Normal < 0.015 TROPONIN-I Result Comment: TROPONIN-I EXPECTED VALUES <0.045 Negative 0.045 - 0.590 Consistent with Cardiac Damage > OR = 0.600 Critical Value Not every elevated troponin is indicative of [place]. These values should be used with clinical judgement in examining the patient's clinical picture for diagnosis. To establish a diagnosis of [place] versus myocardial injury, there must be a demonstrated rise and/or fall in the troponin values, in addition to ischemic symptoms, EKG changes, new regional wall motion abnormality, and/or angiographical evidence. PLEASE NOTE: REFERENCE RANGES EDITED 18 Performed By: #### L501.4010 #### [facility] [place] [facility] [address] [place], [address] EMERGENCY DEPARTMENT Observed: 05/21/2018 Status: F Source: CRUM SUMMARY 12:24 AM [facility] REPOSITORY [facility] Medical Records Department [address] [place] [address] Emergency Department Summary 05/20/18 1639 MR#: [id number] Acct: [id number] Name: KALYANI LIVINGSTON Rep #: [id number] : 1960 57 From: Rosario Joya MD PCP: Rosario Arroyo DO Status: ADM ZAYRA - ER Visit Summary Date of Service: 05/20/18 Chief Complaint: Chest pain History of Present Illness: The patient is a 57 M with history of prior myocardial infarction, diabetes, hypertension and hypercholesterolemia who presents for chest pain since this morning. Pain is substernal and does not radiate. Onset was at rest. Initial pain was a 9 out of 10 and is now a 7 out of 10 after patient took Aleve. Patient states he cannot describe the pain. He states he also is having some right upper quadrant abdominal pain. He has no history of cholecystectomy. Patient denies smoking but does use oral tobacco. He denies alcohol use. Patient has not taken any aspirin today. Physical Examination: Vital signs: afebrile, hemodynamically stable, no hypoxia on room air General: well nourished, well developed, in no distress Skin: warm, dry, no rash, no pallor HEENT: normocephalic and atraumatic; PERRL, EOMI, moist mucous membranes, oral tobacco and mustache and alvarez Cardiovascular: regular rate and rhythm without murmurs, no peripheral edema, 2+ pulses all distal extremities Respiratory: No increased work of breathing, lungs are clear to auscultation bilaterally, no rales, rhonchi or wheezing Abdominal: Abdomen is soft, tender in the epigastrium and medial right and left upper quadrants with normoactive bowel sounds, no guarding or rebound, no masses, negative Mcghee's sign, no hepatosplenomegaly MSK: Moves all extremities, no deformities, normal strength Neuro: Awake and alert, oriented 4. No facial droop, sensation and motor function intact and symmetric Test Results: Abnormal Lab Results WBC RBC Hgb Hct MCV MCH MCHC RDW RDW Differential Plt Count MPV Immature Gran % (Auto) Clinical Impression(s) from Imaging Studies Chest X-Ray 05/20/18 17:50 IMPRESSION: No radiographic evidence of acute cardiopulmonary disease. Electronically Signed: Shanon Carter MD at 18:13 EDT , Service support , Emergency Department Course and Treatment: Patient has significant cardiac history and risk factors and presents with substernal chest pain since this morning that occurred at rest. He states it is been constant all day and also has some right upper quadrant abdominal pain. Workup showed an EKG without ischemia or ectopy. Troponin negative. No leukocytosis. Creatinine elevated at 1.6. Chest x-ray showed no acute process. Patient received aspirin. He had complete resolution of his pain after 2 nitro. Patient was hypertensive upon arrival and blood pressure continued to go up. Patient states he is supposed to take antihypertensive medication but is not taking it in a long time for no specific reason other than he just has not taken it. Because patient is having chest pain and is also significantly hypertensive, he was given a dose of IV labetalol to help with blood pressure control in case it is contributing to his symptoms. Patient was discussed with the hospitalist for admission for further chest pain workup in a patient with significant cardiac history and very poorly controlled blood pressure. On reevaluation patient was pain-free and had no complaints. Treatment Plan: [] Disposition: [] Impression: Chest pain, uncontrolled hypertension, medication noncompliance, history of ACS This note was generated with [employer] dictation software. It may contain incorrect words, spelling, and punctuation that were not noted in review of the chart prior to signing ED Disposition - Plan for ED Patient: Disposition: Acute Care Hospital [facility] Chief Complaint: Chest Pain What to do if you have Problems For any increased pain, shortness of breath, bleeding, nausea or vomiting, chest pain, or any unexpected problems, contact your Primary Care Provider. Call [facility] ([phone]) or report to the closest Emergency Room. Call 911 if necessary. 05/21/18 0024 <Electronically signed by Rosario Joya MD> Date Rosario Joya MD Cosigner Signature (If Indicated): Date CC: Rosario Arroyo DO HISTORY AND PHYSICAL Observed: 05/20/2018 Status: F Source: CRUM EXAM 9:57 PM [facility] REPOSITORY [facility] Medical Records Department [address] [place] [address] [place] [address] History and Physical 05/20/18 191 MR#: [id number] Acct: [id number] Name: KALYANI LIVINGSTON Rep #: [id number] : 1960 57 From: Anil Palmer MD PCP: Rosario Arroyo DO Status: ADM ZAYRA Y Location: [place] [address] Problem List (1) Chest pain at rest Status: Acute (2) HTN (hypertension) Status: Chronic Qualifiers: Hypertension type: essential hypertension Qualified Code(s): I10 - Essential (primary) hypertension (3) Diabetes Status: Chronic Qualifiers: Diabetes mellitus type: type 2 Diabetes mellitus termite inspector insulin use: with termite inspector use Diabetes mellitus complication status: with unspecified complications Qualified Code(s): E11.8 - Type 2 diabetes mellitus with unspecified complications; Z79.4 - care home (current) use of insulin; Z79.4 - care home (current) use of insulin; Z79.4 - care home (current) use of insulin; Z79.4 - care home (current) use of insulin (4) Tobacco chew use Status: Chronic (5) RASHAWN (acute kidney injury) Status: Acute History of Present Illness Date of Admission: 05/20/18 Chief Complaint: Chest pain 1 day. The patient is a 57 year old M with a significant history of CAD status post 2 stents, diabetes, hypertension, and patent foramen ovale who presented with 1 day history of continuous chest pain. Patient describes his chest pain as 7 out of 10. He is unable to describe the quality of his chest pain. His chest pain is substernal and it occurs at rest. At emergency department he was given 2 nitroglycerin and 4 baby aspirin which brought his chest pain from 7 to a 5. He last took his blood pressure medication a day before this admission. Past Medical History Past Medical History (Chronic Problems): Chronic Problems Tobacco chew use (Chronic) PFO (patent foramen ovale) (Chronic) Cerebrovascular disease (Chronic) Multiple acute ischemic strokes. Mild right facial and right upper extremity paresthesia. Diabetes (Chronic) HTN (hypertension) (Chronic) Hyperlipidemia (Chronic) Smokeless tobacco use (Chronic) CAD (coronary artery disease) (Chronic) CVA (cerebral vascular accident) (Chronic) S/P PTCA (percutaneous transluminal coronary angioplasty) (Chronic) Hyperglycemia (Chronic) Noncompliance with medication regimen (Chronic) Allergies ampicillin Allergy (Verified 05/20/18 16:15) Swelling ibuprofen [From Motrin] Allergy (Verified 05/20/18 16:15) Swelling SEA FOOD Allergy (Uncoded 05/20/18 16:15) Swelling Home Medications: Ambulatory Orders Medication Instructions Recorded Doxepin HCl 20 mg PO QHS 09/18/17 Oxycodone HCl/Acetaminophen 10 - 325 mg PO Q6H PRN PRN 09/18/17 Surgical History: - - PCI, ankle, hip surgery, stomach surgery, neck surgery. Psychiatric History: No pertinent psych hx Lives: Alone Smoking Status: Never smoker Tobacco Use: Chew Drugs: None - *Family History Maternal History Items: Diabetes Paternal History Items: Heart Disease Sibling History Items: Heart Disease - CAD Review of Systems Constitutional: Denies: Chills, Fever, Weight Change Eyes: Denies: Blurred vision, Pain HEENT: Denies: Head Aches, Sinus Congestion, Sinus Drainage Cardiovascular: Reports: Chest Pain. Denies: Edema Respiratory: Denies: Cough, Shortness of breath at rest, Sputum production Gastrointestinal: Denies: Abdominal Pain, Nausea, Vomiting Genitourinary: Denies: Dysuria Musculoskeletal: Reports: - - Bilateral hip pain (chronic). Skin: Denies: Rash, Wounds Neurological: Denies: Numbness, Tingling, Focal weakness Psychiatric: Denies: Anxiety, Depression, Homicidal Ideations, Suicidal Ideations Hematologic/ Lymphatic: Denies: Easy Bruising, Easy Bleeding VTE Information - Inpt Only VTE Present on Admission: No VTE Mechan Device Prophylaxis: None VTE Pharm Prophylaxis ordered?: Yes Patient Problems: Active and Suspected Problems Chest pain at rest (Acute) RASHAWN (acute kidney injury) (Acute) - Physical Exam General: Alert, Oriented x3, Cooperative HEENT: Atraumatic, PERRLA, EOMI, Normocephalic Neck: Supple, No JVD, Negative Carotid Bruits Lungs: Clear to auscultation, Normal air movement Cardiovascular: No murmurs, Tachycardic Abdomen: Bowel Sounds Present, Soft, Non Tender Extremities: No edema, Capillary Refill Less than 3 Seconds Skin: No rashes, No breakdown Musculoskeletal: No Tenderness to Palpation of Joints or Extremities Neurological: Cranial nerves II-XII grossly intact Psych/Mental Status: Normal Affect, Appropriate Vital Signs Temp Pulse Resp BP Pulse Ox 97.5 F L 86 17 206/141 H 100 05/20/18 16:16 05/20/18 19:01 05/20/18 19:01 05/20/18 19:01 05/20/18 19:01 Oxygen Flow Rate (L/min) 2 Oxygen Delivery Method Nasal Cannula Weight: 85.275 kg Body Mass Index (BMI) 24.7 Finger Stick Blood Glucose 391 Laboratory Tests Past 24 Hrs Assessment/Plan All Active Problems Chest pain at rest (Acute) RASHAWN (acute kidney injury) (Acute) Uncontrolled type 2 diabetes mellitus (Acute) Elevated troponin (Acute) Acute cerebrovascular accident of cerebellum (Acute) Syncope (Acute) Abnormal cardiac enzyme level (Acute) Hypokalemia (Acute) found confused (Acute) The patient is a 57 year old M with a significant history of CAD status post 2 stents, diabetes, hypertension, and patent foramen ovale who presented with 1 day history of continuous chest pain likely due to hypertensive emergency or angina pectoris; also found to have elevated creatinine consistent with acute kidney injury. Chest pain EKG reviewed independently does not show ST elevations or depressions. It shows prolonged QT Intervals. Chest x-ray independently reviewed is unremarkable. BMP, cardiac enzymes and other labs were reviewed Troponin is unremarkable. Admit to a monitored bed on PCU Old records reviewed showed shows history of previous chest pain and uncontrolled hypertension. ASA 81 mg p.o. daily SL NTG 0.4 mg prn as needed for chest pain Serial cardiac enzymes Stat EKG as needed for chest pain Chemical stress test in the AM if the cardiac enzymes are negative; patient has bilateral hip replacements and has pain in bilateral hips (likely from osteoarthritis) and cannot exercise High intensity Lipitor continued. Review of records showed lipid panel on 01/01/2018 showed cholesterol 211; LDL 148; HDL 34; VLDL 29. Hypertensive emergency Systolic blood pressure at emergency department was more than 200; uncontrolled. Patient with chronic hypertension. Patient reported last time he took blood pressure medication was a day before his admission. Hypertensive emergency likely due to barrier in taking medication Patient received labetalol at emergency department Urine drug screen ordered. Trend blood pressures and titrate antihypertensive medications. Echocardiogram on 09/19/17 showed an ejection fraction of 40%. However at that time he had influenza. And per cardiology notes; further evaluation after his influenza resolved was suggested. Echocardiogram ordered. On her last visit cardiology suggested continuation of beta blockers, DAMIÁN inhibitor and possible addition of a calcium channel nanette. DAMIÁN inhibitor (lisinopril) has been held because of RASHAWN. Home medications does not show a beta-nanette; or calcium channel nanette at this time. Metoprolol and amlodipine ordered. Clonodine prn and labetalol prn for systolic blood pressure more than 180. Titrate blood pressure medication as necessary. RASHAWN Creatinine on admission was 1.64 Review of previous creatinine shows a creatinine level of 1.26 on 01/01/2018; and1.16 on 09/21/2015. BUN over creatinine is more than 20. Likely due to prerenal from dehydration. Trend BMP Gentle fluid hydration with normal saline Avoid nephrotoxic Diabetes Patient reports that he takes Humalog 5-6 units with each meal. He reports that he use to take metformin 2000 mg daily but metformin dose was cut down. Correction scale insulin ordered for now. We will keep n.p.o. for cardiac evaluation in a.m. Fingerstick blood glucose every 6 hours with correction scale insulin. Tobacco abuse Patient chew tobacco. Was counseled Refused nicotine patch. History of CAD with stents Aspirin as above. Osteoarthritis of bilateral hips. Patient reports bilateral hip replacements and scheduled Percocet 4 times daily. Percocet continued. DVT prophylaxis with subcutaneous heparin. Code Visit Inpatient E AND M: 49839 Init Hosp L3 05/20/182155 <Electronically signed by Anil Palmer MD> Date Anil Palmer MD [facility] Signature: Date (if applicable) CC: Anil Palmer MD; Rosario Arroyo DO Signed BEDSIDE GLUCOSE Collected: 05/20/2018 Status: F Source: CRUM 9:25 PM [facility] REPOSITORY TYPE CODE TESTS RESULT OUT OF REFERENCE UNITS RANGE LAB L501.080 70-110 mg/dL High BEDSIDE GLU 158 Result Comment: MANAGEMENT OF PATIENT CARE PER NURSING PROTOCOL Performed By: #### L501.080 #### [facility] Point of Care [address]. [place], [place] [address] TROPONIN-I Collected: 05/20/2018 Status: F Source: CRUM 8:50 PM [facility] REPOSITORY Order Comment: 'TROP' Serial specimen #1, #2 or #3: 2 TYPE CODE TESTS RESULT OUT OF RANGE REFERENCE UNITS LAB L501.4010 <0.045 ng/mL Normal < 0.015 TROPONIN-I Result Comment: TROPONIN-I EXPECTED VALUES <0.045 Negative 0.045 - 0.590 Consistent with Cardiac Damage > OR = 0.600 Critical Value Not every elevated troponin is indicative of [place]. These values should be used with clinical judgement in examining the patient's clinical picture for diagnosis. To establish a diagnosis of [place] versus myocardial injury, there must be a demonstrated rise and/or fall in the troponin values, in addition to ischemic symptoms, EKG changes, new regional wall motion abnormality, and/or angiographical evidence. PLEASE NOTE: REFERENCE RANGES EDITED 18 Performed By: #### L501.4010 #### [facility] [address] [place], [place], [address] CHEST PA AND LATERAL Observed: 05/20/2018 Status: F Source: CRUM 4:39 PM [facility] REPOSITORY [facility] Imaging Services [address] [place] [address] Chest PA and Lateral MR#: [id number] Acct: [id number] Name: KALYANI LIVINGSTON Rep #: [id number] : 1960 M 57 From: Shanon Carter MD PCP: Rosario Arroyo DO Status: REG ER Study: Chest PA and Lateral Date of Exam: 05/20/18 Exam# [id number] Ordering Dr: Rosario Joya MD STUDY: X-RAY CHEST REASON FOR EXAM: Male, 57 years old. Central chest pain for one day. TECHNIQUE: PA and lateral views of the chest. COMPARISON: September 18, 2017. FINDINGS: Cardiac monitoring leads are present. The lungs are clear and expanded. There is no demonstrated pleural abnormality. Normal size heart. Normal mediastinum and gilbert. Normal visualized pulmonary arteries. There is atherosclerotic tortuosity of the aortic arch and descending thoracic aorta. There is demineralization of the osseous structures. Normal visualized ribs, clavicles, and shoulders. There is no demonstrated abnormality of the visualized soft tissue structures of the upper abdomen. RAD/Chest PA and Lateral IMPRESSION: No radiographic evidence of acute cardiopulmonary disease. Electronically Signed: Shanon Carter MD at 18:13 EDT , Service support , CC: Rosario Joya MD; Rosario Arroyo DO Label Fuser Tender: Signed CBC W/DIFF, AUTOMATED Collected: 05/20/2018 Status: F Source: CRUM 4:30 PM [facility] REPOSITORY TYPE CODE TESTS RESULT OUT OF RANGE REFERENCE UNITS LAB L100.1000 4.4-11.0 K/mm3 Normal WBC 7.5 LAB L100.1200 4.6-6.2 M/mm3 Normal RBC 5.05 LAB L100.1300 13.0-16.5 g/dl Normal HGB 15.3 LAB L100.1400 40-54 % Normal HCT 44.3 LAB L100.1500 80-94 fL Normal MCV 87.7 LAB L100.1600 27.0-32.0 pg Normal MCH 30.3 LAB L100.1700 32-36 g/gl Normal MCHC 34.5 LAB L100.1810 11.6-14.6 % Normal RDW CV 13.5 LAB L100.1820 35.1-43.9 fl Normal RDW SD 42.9 LAB L100.1900 150-450 K/mm3 Normal PLT 283 LAB L100.2000 6.2-12.0 fl Normal MPV 10.8 LAB L100.2100 47-70 % High NEUT% 71.5 LAB L100.2200 19-41 % Low LY% 17.8 LAB L100.2300 0-10 % Normal MONO% 5.9 LAB L100.2400 0-5 % Normal EO% 4.4 LAB L100.2500 0-1 % Normal BASO% 0.3 LAB L100.2550 0.0-0.9 % Normal IM GRAN % 0.100 Result Comment: IG% - Immature Granulocytes (promyelocytes, myelocytes and metamyelocytes) > 1% indicates that a LEFT SHIFT is Present. LAB L100.2620 2.0-7.7 X10 3/uL Normal Absolute Neut 5.4 LAB L100.2720 0.83-4.51 X10 3/ul Normal Absolute Lymph 1.33 Performed By: #### L100.0100 #### [facility] [address] [place], [place], [id number] PROTHROMBIN TIME W/INR Collected: 05/20/2018 Status: F Source: CRUM 4:30 PM [facility] REPOSITORY TYPE CODE TESTS RESULT OUT OF RANGE REFERENCE UNITS LAB L300.4150 11.7-14.9 SECONDS Normal PROTIME 14.2 LAB L300.4200 Normal INR 1.1 Performed By: #### L300.3900, L300.4310 #### [facility] [address] [place], [place], [address] PARTIAL THROMBOPLAST Collected: 05/20/2018 Status: F Source: CRUM TIME 4:30 PM [facility] REPOSITORY TYPE CODE TESTS RESULT OUT OF RANGE REFERENCE UNITS LAB L300.4310 24.1-36.2 Seconds Normal PTT 29.7 Performed By: #### L300.3900, L300.4310 #### [facility] [address] [place], [address] COMPREHENSIVE METABOLIC Collected: 05/20/2018 Status: F Source: [facility] 4:30 PM [facility] REPOSITORY TYPE CODE TESTS RESULT OUT OF RANGE REFERENCE UNITS LAB L501.0100 74-106 mg/dL High GLU 123 Result Comment: Fasting Glucose result from 100 to 125 mg/dL suggests IMPAIRED HOMEOSTASIS per A.D.A. criteria. Please note revised GLUCOSE reference range effective 2017. LAB L501.1000 7-18 mg/dL High BUN 22 LAB L501.1100 0.70-1.30 mg/dL High CREAT,SERUM 1.64 Result Comment: The validity of the calculated GFR AND GFRAA in patients over 70 years has not been determined. Clinical correlation is essential. LAB L501.1110 >60 mL/min Low EST GFR 46 Result Comment: Non- GFR Calc LAB L501.1115 >60 mL/min Low EST GFR - AA 56 Result Comment: GFR Calc LAB L501.1255 ml/min Normal Estimated CRCL 56.16 LAB L501.1300 10-20 RATIO Normal BUN/CRE 13.4 LAB L501.1500 6.4-8. g/dL Normal 2 T PROT 7.0 LAB L501.1800 3.2-5. g/dL Normal 0 ALB 4.0 LAB L501.1950 2.2-4. g/dL Normal 2 GLOB 3.0 LAB L501.2000 0.9-2. RATIO Normal 4 A/G 1.3 LAB L501.2200 8.5-10 mg/dL Normal .1 CA 8.7 LAB L501.4100 15-37 U/L Low AST 9 LAB L501.4305 45-117 U/L Normal ALK P 87 LAB L501.4405 16-61 U/L Low ALT 12 LAB L501.4600 0.20-1 mg/dL Normal .00 T BILI 1.00 LAB L501.5300 136-14 mmol/L Normal 5 NA 144 LAB L501.5600 3.5-5. mmol/L Normal 1 K 3.9 LAB L501.5900 98-107 mmol/L Normal CL 106 LAB L501.6100 21.0-3 mmol/L Normal 2.0 CO2 26.0 LAB L501.6200 5-15 Normal GAP 12 Performed By: #### L500.4050, L501.2450, L501.4010 #### [facility] [address] [place], [address] LIPASE Collected: 05/20/2018 Status: F Source: CRUM 4:30 PM [facility] REPOSITORY TYPE CODE TESTS RESULT OUT OF RANGE REFERENCE UNITS LAB L501.2450 73-393 U/L Normal LIPASE 99 Performed By: #### L500.4050, L501.2450, L501.4010 #### [facility] [address] [place], [address] TROPONIN-I Collected: 05/20/2018 Status: F Source: CRUM 4:30 PM [facility] REPOSITORY TYPE CODE TESTS RESULT OUT OF RANGE REFERENCE UNITS LAB L501.4010 <0.045 ng/mL Normal < 0.015 TROPONIN-I Result Comment: TROPONIN-I EXPECTED VALUES <0.045 Negative 0.045 - 0.590 Consistent with Cardiac Damage > OR = 0.600 Critical Value Not every elevated troponin is indicative of [place]. These values should be used with clinical judgement in examining the patient's clinical picture for diagnosis. To establish a diagnosis of [place] versus myocardial injury, there must be a demonstrated rise and/or fall in the troponin values, in addition to ischemic symptoms, EKG changes, new regional wall motion abnormality, and/or angiographical evidence. PLEASE NOTE: REFERENCE RANGES EDITED 18 Performed By: #### L500.4050, L501.2450, L501.4010 #### [facility] [address] [place], [place], [address] URINE DRUG SCREEN Collected: 05/20/2018 Status: F Source: CRUM (VISTA) 12:40 PM [facility] REPOSITORY Order Comment: List of Drugs Taken or Suspected? UNK TYPE CODE TESTS RESULT OUT OF RANGE REFERENCE UNITS LAB L505.0075 TO BE Normal CONFIRMED Result Comment: CONFIRMATORY TESTING FOR ALL POSITIVE URINE DRUG SCREEN RESULTS WILL ONLY BE SENT OUT UPON PHYSICIAN ORDER. VISTA Urine Drug Screen methods provide only preliminary analytical test results. A more specific alternate chemical method must be used in order to obtain a confirmed analytical result. Gas chromatography/mass spectrometery (GC/MS) is the preferred confirmatory method. Clinical consideration and professional judgement should be applied to any drug of abuse test result, particularly when preliminary positive results are used. URINE TCA TESTING MUST BE ORDERED SEPARATELY. USE TEST MNEMONIC: [facility] LAB L505.5005 VISTA UDS PH 5 Normal LAB L505.5015 <1000 ng/mL AMPHETAMINES Normal NEGATIVE LAB L505.5025 < 200 ng/mL BARBITIURATES Normal NEGATIVE LAB L505.5035 < 200 ng/mL BENZODIAZIPINE Normal NEGATIVE LAB L505.5045 < 300 ng/mL COCAINE Normal NEGATIVE LAB L505.5055 < 500 ng/mL ECSTACY Normal NEGATIVE LAB L505.5065 < 300 ng/mL METHADONE Normal NEGATIVE LAB L505.5075 < 300 ng/mL OPIATES Normal NEGATIVE LAB L505.5085 < 25 ng/mL PCP Normal NEGATIVE LAB L505.5095 < 50 ng/mL THC Normal NEGATIVE Performed By: #### L505.5000 #### [facility] [address] [place], [address] PSA T AND F W/ Collected: 01/01/2018 Status: F Source: CRUM SERIAL MONITOR 2:15 PM [facility] REPOSITORY TYPE CODE TESTS RESULT OUT OF RANGE REFERENCE UNITS LAB L3110.0700 0.0-4.0 ng/mL Normal PSA, 0.6 TOTAL Result Comment: [employer] methodology. According to the [employer], Serum PSA should decrease and remain at undetectable levels after radical prostatectomy. The AUA defines biochemical recurrence as an initial PSA value 0.2 ng/mL or greater followed by a subsequent confirmatory PSA value 0.2 ng/mL or greater. Values obtained with different assay methods or kits cannot be used interchangeably. Results cannot be interpreted as absolute evidence of the presence or absence of malignant disease. LAB L3110.0800 N/A ng/mL Normal PSA, 0.12 FREE Result Comment: [employer] methodology. LAB L3110.0900 . % Normal PSA, FREE 20.0 % Result Comment: The table below lists the probability of prostate cancer for men with non-suspicious JUAN DANIEL results and total PSA between 4 and 10 ng/mL, by patient age (Bernard et al, HUMZA 1998, 279:1542). % Free PSA 50-64 yr 65-75 yr 0.00-10.00% 56% 55% 10.01-15.00% 24% 35% 15.01-20.00% 17% 23% 20.01-25.00% 10% 20% >25.00% 5% 9% Please note: Bernard et al did not make specific recommendations regarding the use of percent free PSA for any other population of men. Performed at: [facility] [address] [id number] Digital Artist: Kodi Amaya PhD, Phone: [phone] Performed By: #### L3110.0600 #### [facility] (refer to report for specific site) refer to report for address and phone number COMPREHENSIVE METABOLIC Collected: 01/01/2018 Status: F Source: KAREN SR 1:59 PM [facility] REPOSITORY TYPE CODE TESTS RESULT OUT OF RANGE REFERENCE UNITS LAB L501.0100 74-106 mg/dL High GLU 182 Result Comment: Fasting Glucose result greater than or equal to 126 mg/dL suggests DIABETES MELLITUS per A.D.A. criteria. Please note revised GLUCOSE reference range effective 2017. LAB L501.1000 7-18 mg/dL Normal BUN 12 LAB L501.1100 0.70-1.30 mg/dL Normal CREAT,SERUM 1.26 Result Comment: The validity of the calculated GFR AND GFRAA in patients over 70 years has not been determined. Clinical correlation is essential. LAB L501.1110 >60 mL/min Normal EST GFR 63 Result Comment: Non- GFR Calc LAB L501.1115 >60 mL/min Normal EST GFR - AA 76 Result Comment: GFR Calc LAB L501.1300 10-20 RATIO Low BUN/CRE 9.5 LAB L501.1500 6.4-8.2 g/dL Normal T PROT 7.9 LAB L501.1800 3.2-5.0 g/dL Normal ALB 3.7 LAB L501.1950 2.2-4.2 g/dL Normal GLOB 4.2 LAB L501.2000 0.9-2.4 RATIO Normal A/G 0.9 LAB L501.2200 8.5-10.1 mg/dL Normal CA 8.6 LAB L501.4100 15-37 U/L Low AST 10 LAB L501.4305 45-117 U/L High ALK P 136 LAB L501.4405 16-61 U/L Normal ALT 16 LAB L501.4600 0.20-1.00 mg/dL Normal T BILI 0.80 LAB L501.5300 136-145 mmol/L Normal NA 138 LAB L501.5600 3.5-5.1 mmol/L Normal K 3.7 LAB L501.5900 98-107 mmol/L Normal CL 100 LAB L501.6100 21.0-32.0 mmol/L Normal CO2 30.0 LAB L501.6200 5-15 Normal GAP 8 Performed By: #### L500.4050, L500.4100, L501.9520, L506.0500 #### [facility] [address] [place], [address] LIPID PROFILE Collected: 01/01/2018 Status: F Source: CRUM 1:59 PM [facility] REPOSITORY TYPE CODE TESTS RESULT OUT OF RANGE REFERENCE UNITS LAB L501.4900 200 mg/dL High CHOL 211 Result Comment: <200 mg/dL Desirable 200-240 mg/dL Borderline >240 mg/dL High Risk LAB L501.5000 mg/dL Normal TRIG 147 Result Comment: The drugs N-Acetylcysteine and Metamizole may falsely depress this assay. Serum Triglycerides Reference Interval Normal <150 mg/dL Borderline high 150 - 199 mg/dL High 200 - 499 mg/dL Very High > or = 500 mg/dL LAB L501.6400 mg/dL Low HDL 34 Result Comment: The drugs N-Acetylcysteine and Metamizole may falsely depress this assay. Reference Range HDL <40 mg/dL Low HDL Cholesterol HDL >or= 60 mg/dL High HDL Cholesterol LAB L501.6500 0-130 mg/dL High LDL 148 LAB L501.6600 5-40 mg/dL Normal VLDL 29 Performed By: #### L500.4050, L500.4100, L501.9520, L506.0500 #### [facility] [address] [facility] [place], [address] THYROID STIM HORMONE Collected: 01/01/2018 Status: F Source: [facility]AR[facility] (TSH) 1:59 PM [facility] REPOSITORY TYPE CODE TESTS RESULT OUT OF RANGE REFERENCE UNITS LAB L501.9520 0.358-3.74 uIU/mL Normal TSH 1.25 Performed By: #### L500.4050, L500.4100, L501.9520, L506.0500 #### [facility] [address] [place], [address] PREALBUMIN Collected: 01/01/2018 Status: F Source: [facility]AREN 1:59 PM [facility] REPOSITORY TYPE CODE TESTS RESULT OUT OF RANGE REFERENCE UNITS LAB L506.0500 20.0-40.0 mg/dL Normal PREALBUMIN 23.7 Performed By: #### L500.4050, L500.4100, L501.9520, L506.0500 #### [facility] [address] [facility] [place], [address] CBC W/DIFF, AUTOMATED Collected: 01/01/2018 Status: F Source: [facility]EN 1:59 PM [facility] REPOSITORY TYPE CODE TESTS RESULT OUT OF RANGE REFERENCE UNITS LAB L100.1000 4.4-11.0 K/mm3 Normal WBC 9.6 LAB L100.1200 4.6-6.2 M/mm3 Normal RBC 5.71 LAB L100.1300 13.0-16.5 g/dl High HGB 16.6 LAB L100.1400 40-54 % Normal HCT 49.5 LAB L100.1500 80-94 fL Normal MCV 86.7 LAB L100.1600 27.0-32.0 pg Normal MCH 29.1 LAB L100.1700 32-36 g/gl Normal MCHC 33.5 LAB L100.1810 11.6-14.6 % Normal RDW CV 13.8 LAB L100.1820 35.1-43.9 fl Normal RDW SD 43.3 LAB L100.1900 150-450 K/mm3 Normal PLT 366 LAB L100.2000 6.2-12.0 fl Normal MPV 11.2 LAB L100.2100 47-70 % High NEUT% 80.2 LAB L100.2200 19-41 % Low LY% 13.7 LAB L100.2300 0-10 % Normal MONO% 4.8 LAB L100.2400 0-5 % Normal EO% 0.8 LAB L100.2500 0-1 % Normal BASO% 0.3 LAB L100.2550 0.0-0.9 % Normal IM GRAN % 0.200 Result Comment: IG% - Immature Granulocytes (promyelocytes, myelocytes and metamyelocytes) > 1% indicates that a LEFT SHIFT is Present. LAB L100.2620 2.0-7.7 X10 3/uL Normal Absolute Neut 7.7 LAB L100.2720 0.83-4.51 X10 3/ul Normal Absolute Lymph 1.32 Performed By: #### L100.0100 #### [facility] [address] [facility]. [place], [place], [address] ALLERGIES ALLERGIES DATE TYPE / CODE NAME / REACTION SEVERITY SOURCE CODE 07/03/2018 Drug ibuprofen/ Swelling Unknown Karen Allergy/[id number]( [id number] [facility] OMED CT) (RXNORM) Hospital Repository 07/03/2018 Drug ampicillin Swelling Unknown [place] Allergy/[id number]( /[id number] [facility] OMED CT) 2(RXNORM) Hospital Repository 07/03/2018 Miscellaneous SEA FOOD Swelling Unknown [place] Allergy/[id number]([facility]) Hospital Repository ENCOUNTERS ENCOUNTERS ADMIT/DISCHARGE ACCOUNT ADMITTING ENCOUNTER LOCATION SOURCE NUMBER CLASS 10/02/2018 [id number] Ambulatory [place] Karen 8 [facility] ing:BFHLAB Repository 07/03/2018 [id number] Agyepong, Ambulatory BMSBuilding:B Karen 6 Anil [facility] Repository 07/03/2018/ [id number] Agyetheeg, Inpatient [place] Karen 8 5 Anil Encounter [facility] ing:PCURoom: Repository [id number]: 1 07/03/2018 [id number] Agyetheeg, Ambulatory BMSBuilding:B Karen 8 Anil [facility] Repository 07/03/2018 [id number] Agyepong, Ambulatory BMSBuilding:B Karen 6 Anil [facility] Repository 07/03/2018/ [id number] Ambulatory BMSBuilding:W [place] 8 4 [facility] Repository 07/03/2018 [id number] Ambulatory BMSBuilding:W [place] 2 [facility] Repository 05/22/2018 [id number] Ambulatory BMSBuilding:W [place] 8 [facility] Repository 05/20/2018/ [id number] Agyepong, Ambulatory Karen Karen 8 2 [facility] ing:PCURoom: Repository [id number]: 1 05/20/2018 [id number] Agyepong, Ambulatory BMSBuilding:B Karen 5 Anil [facility] Repository 05/20/2018 [id number] Agyepong, Ambulatory BMSBuilding:B [place] 4 Anil MS.[facility] Repository 05/20/2018 [id number] Agyepong, Ambulatory BMSBuilding:B Karen 0 Anil [facility] Repository 05/20/2018 [id number] Agyepong, Ambulatory BMSBuilding:B Karen 6 Anil [facility] Repository 05/20/2018 [id number] Ambulatory BMSBuilding:W [place] 6 [facility] Repository 01/01/2018 [id number] Ambulatory [place] Karen 9 [facility] ing:BFHLAB Repository PAYERS PAYERS ENCOUNTER GUARANTOR PAYER SUBSCRIBER SOURCE 10/02/2018 KALYANI [address] KALYANI JONASB: Karen NICE Insurance:[facility] [id number] [facility] [address]Aap: (330) Number: Repository [phone] ) [id number] Date:[id number] [address]JC: 10/02/2018 Secondary NOT GIVENUNK Karen Insurance:SELF PAY [facility] Number: Effective Repository Date:2018-10-02 07/03/2018 KALYANI G [id number] KALYANI Bedoya GOREYDOB: [place] NICE Insurance:[facility] [id number] [facility] [place], [place] [facility] [address]Gvu: (330) Number: Repository [phone] () [id number] Date:9089-50-37UL [address] [address]JX: 07/03/2018 Secondary NOT GIVENUNK [place] Insurance:SELF PAY [facility] Number: Effective Repository Date:2018-07-03 07/03/2018 KALYANI Bedoya [id number] KALYANI Bedoya GOREYDOB: [place] NICE Insurance:[facility] [id number] [facility] [place] [address]Tel: (330) Number: Repository [phone] () [id number] Date:0752-46-28UZ [address] [address]VU: 07/03/2018 Secondary NOT GIVENUNK Karen Insurance:SELF PAY [facility] Number: Effective Repository Date:2018-07-03 07/03/2018 KALYANI [id number] KALYANI Bedoya GOREYDOB: [place] NICE Insurance:[facility] [id number] [facility] [place] [address]Tel: (330) Number: Repository [phone] () [id number] Date:2934-71-90UD [address] [address]MC: 07/03/2018 Secondary NOT GIVENUNK Karen Insurance:SELF PAY [facility] Number: Effective Repository Date:2018-07-03 07/03/2018 KALYANI Bedoya [id number] KALYANI Bedoya GOREYDOB: Karen NICE Insurance:[facility] [id number] [facility] [place] [address]Tel: (330) Number: Repository [phone] () [id number] Date:2828-90-55TX [address] [address]NT: 07/03/2018 Secondary NOT GIVENUNK Karen Insurance:SELF PAY [facility] Number: Effective Repository Date:2018-07-03 07/03/2018 KALYANI [address] KALYANI LIVINGSTONDOB: [place] NICE Insurance:[id number] [place] [facility] [address]Kms: (330) Number: Repository [phone] () [id number] Date:3826-25-74LZ [address] [address]OZ: 07/03/2018 Secondary NOT GIVENUNK Karen Insurance:SELF PAY [facility] Number: Effective Repository Date:2018-07-03 07/03/2018 KALYANI [address] KALYANI OHARAEYDOB: Karen NICE Insurance:[facility] [id number] [facility] [place] [facility] [address]Rlr: (330) Number: Repository [phone] () [id number] Date:1200-72-75NQ [address] [address]GD: 07/03/2018 Secondary NOT GIVENUNK [place] Insurance:SELF PAY [facility] Number: Effective Repository Date:2018-07-03 05/22/2018 KALYANI [address] KALYANI LIVINGSTONDOB: Karen NICE Insurance:[facility] [id number] [facility] [place] [facility] [address]Flf: (330) Number: Repository [phone] () [id number] Date:1769-23-14DA [address] [address]YG: 05/22/2018 Secondary NOT GIVENUNK Karen Insurance:SELF PAY [facility] Number: Effective Repository Date:2018-05-22 05/20/2018 KALYANI G [id number] KALYANI G GOREYDOB: Karen NICE Insurance:[facility] [id number] [facility] [place] [facility] [address]Evz: (330) Number: Repository [phone] () [id number] Date:4675-02-01JF [address] [address]BE: 05/20/2018 Secondary NOT GIVENUNK [place] Insurance:SELF PAY [facility] Number: Effective Repository Date:2018-05-20 05/20/2018 KALYANI Bedoya [id number] KALYANI G GOREYDOB: Karen NICE Insurance:[facility] [id number] [facility] [place] [address]Tel: (330) Number: Repository [phone] () [id number] Date:6595-12-80KV [address] [address]FH: 05/20/2018 Secondary NOT GIVENUNK [place] Insurance:SELF PAY [facility] Number: Effective Repository Date:2018-05-20 05/20/2018 KALYANI Bedoya [id number] KALYANI G GOREYDOB: [place] NICE Insurance:[facility] [id number] [facility] [place] [address]Tel: (330) Number: Repository [phone] () [id number] Date:7371-75-44PP [address] [address]ZN: 05/20/2018 Secondary NOT GIVENUNK [place] Insurance:SELF PAY [facility] Number: Effective Repository Date:2018-05-20 05/20/2018 KALYANI Bedoya [id number] KALYANI G GOREYDOB: [place] NICE Insurance:[facility] [id number] [facility] [place] [address]Tel: (330) Number: Repository [phone] () [id number] Date:9475-71-81BW [address] [address]OA: 05/20/2018 Secondary NOT GIVENUNK Karen Insurance:SELF PAY [facility] Number: Effective Repository Date:2018-05-20 05/20/2018 KALYANI [address] KALYANI OHARAEYDOB: Karen NICE Insurance:[facility] [id number] [facility] [place] [facility] [address]Xcc: (330) Number: Repository [phone] () [id number] Date:7167-48-75XN [address] [address]EQ: 05/20/2018 Secondary NOT GIVENUNK [place] Insurance:SELF PAY [facility] Number: Effective Repository Date:2018-05-20 05/20/2018 KALYANI [address] KALYANI OHARAEYDOB: [place] NICE Insurance:[facility] [id number] [facility] [place] [facility] [address]Wsm: (330) Number: Repository [phone] () [id number] Date:6837-57-95HN [address] [address]KS: 05/20/2018 Secondary NOT GIVENUNK [place] Insurance:SELF PAY [facility] Number: Effective Repository Date:2018-05-20 01/01/2018 KALYANI [address] KALYANI OHARAEYDOB: Karen NICE Insurance:[id number] [place] [facility] [address]Dyi: (330) Number: Repository [phone] () [id number] Date:8143-23-55EI [address] [address]RE: 01/01/2018 Secondary NOT GIVENUNK [place] Insurance:SELF PAY [facility] Number: Effective Repository Date:2018-01-01
== END ==
PROVIDERS: Family Provider Family Medicine; PCP Family Medicine; Visit Provider Family Medicine
DX: E11.9 Type 2 diabetes mellitus without complications (principal); E78.5 Hyperlipidemia, unspecified; Z51.81 Encounter for therapeutic drug level monitoring
CPT/HCPCS: 36415; 80053; 85025

== ENCOUNTER → 2019-01-02 | Outpatient (CLI) | payer MEDICARE, SELFPAY ==
--- NOTE | 2019-01-02 14:41 | RAD_ITS ---
STUDY: X-RAY - LEFT SHOULDER REASON FOR EXAM: Pain. TECHNIQUE: 4 view(s) of the shoulder. COMPARISON: None. FINDINGS: Normal glenohumeral articulation. Normal acromioclavicular joint. Normal acromion. Normal humeral head and visualized proximal humerus. The soft tissue structures are unremarkable. Normal visualized pulmonary apex. RAD/Shoulder min 2 Views IMPRESSION: Unremarkable x-ray examination of the left shoulder. Electronically Signed: Chuck Benjamin MD at 15:08 EDT Tel , Service support ,
== END | disposition home or self-care (01) ==
LOC: HPRAD 14:40
PROVIDERS: Family Provider Family Medicine; PCP Family Medicine; Referring Provider Orthopaedic Surgery; Visit Provider Orthopaedic Surgery
DX: M25.512 Pain in left shoulder (principal)
CPT/HCPCS: 73030

== ENCOUNTER → 2019-01-14 | Outpatient (CLI) | payer MEDICARE, SELFPAY ==
--- NOTE | 2019-01-14 13:21 | STE_ITS ---
Reason For Study: CHEST PAIN, HTN, CAD Stress Results Protocol: Dobutamine Stress Echo Maximum Predicted HR: 162 bpm Target HR: 138 bpm % Maximum Predicted HR: 81 % DurationHeart Rate Stage (mm:ss) (bpm) BP Comment BASELINE 67 160/100REPEAT BP 160/99 DOBUTAMINE 10MCG 3:00 60 193/106 DOBUTAMINE 20 MCG 3:00 55 207/103 DOBUTAMINE 30MCG 3:00 71 / .5MG ATROPINE,ATTEMPTED MANUAL BP AT END OF STAGE DOBUTAMINE 40 MCG 3:19 131 232/112OBTAINED MANUAL BP ON RIGHT ARM, .5 MG ATROPINE GIVEN RECOVERY 100 130/80 Stress Duration: 12:19 mm:ss Maximum Stress HR: 131 bpm Baseline Echocardiogram Findings Stress Echo Wall motion Data Resting WM Intermediate WM Stress WM Resting Wall Motion Wall Motion Int. Wall Motion Stress All segments Normal. All segments Hyperkinetic. Anterio-Basal: Normal. Ejection Fraction 55 %. Ejection Fraction 65 %. Lateral-Basal: Normal. Posterior-Basal: Normal. Infero-Basal: Hypokinetic. Basal inferoseptal: Normal. Basal anteroseptal: Normal. Mid-Anterior : Normal. Mid-Lateral : Hypokinetic. Mid-Posterior: Normal. Mid-Inferior: Hypokinetic. Mid-inferoseptal : Normal. Mid-anteroseptal : Hyperkinetic. Anterior [place] : Hyperkinetic. Inferior [place] : Hyperkinetic. Lateral [place] : Hypokinetic. Septall [place] : Hyperkinetic. Ejection Fraction 60 %. Stress Results Heart rate response: Technically inadequate (percent predicted maximal heart rate less than 85%) Blood pressure response: Resting hypertension-exaggerated blood pressure response Arrhythmias: None Stopped secondary to: Completion of protocol. EKG Data Baseline ECG: Normal sinus rhythm. Peak pharmacologic ECG: Approximately 0.5 to 1.0 mm horizontal/upsloping ST segment depression in leads II, III, aVF, and V4 through V6 with gradual resolution to baseline in recovery. Symptoms with Stress No complaint of chest discomfort during pharmacologic infusion or recovery. Interpretation Summary Abnormal pharmacologic (dobutamine) (technically inadequate: predicted maximal heart rate less than 85%) stress echocardiogram. Ordering Physician: Rosario Arroyo Referring Physician: Rosario Arroyo Performed By: Kisha Good, CARYN, RVT
== END | disposition home or self-care (01) ==
PROVIDERS: Family Provider Family Medicine; PCP Family Medicine; Referring Provider Family Medicine; Visit Provider Family Medicine
DX: R07.9 Chest pain, unspecified (principal); I25.10 Atherosclerotic heart disease of native coronary artery without angina pectoris; I10 Essential (primary) hypertension
CPT/HCPCS: 93017; 93350; J7040; A4216

== ENCOUNTER 2019-02-25 08:19 | Observation (INO) | payer MEDICARE, SELFPAY ==
[2019-02-24 14:25] VITALS: BMI 25.2
[2019-02-25] VITALS (17 sets, daily range): BP systolic 80–155; BP diastolic 60–102; PULSE 68–101; RESP 16–18; TEMP 36.4–36.9; O2SAT 96–100; BMI 26.5; BMI 24.9
--- NOTE | 2019-02-25 08:43 | EKG12_ITS ---
Test Reason : FALL Blood Pressure : / mmHG Vent. Rate : 078 BPM Atrial Rate : 078 BPM P-R Int : 158 ms QRS Dur : 086 ms QT Int : 420 ms P-R-T Axes : 014 027 123 degrees QTc Int : 478 ms Normal sinus rhythm Increased R/S ratio in V1, consider early transition or posterior infarct Abnormal ECG Confirmed by EDITH JETER ([id number]), senior technical editor BAILEY VALLEJO ([id number]) on 02/27/2019 11:44:13 AM Referred By: YEFRI Confirmed By:MELANIE JETER
--- NOTE | 2019-02-25 08:43 | CT_ITS ---
STUDY: CT BRAIN WITHOUT CONTRAST REASON FOR EXAM: Male, 58 years old. Dizziness. History of trauma. RADIATION DOSAGE (If Supplied By Facility): CTDIvol = ( 44.99 ) mGy, DLP = ( 812.98 ) mGycm TECHNIQUE: Transaxial CT imaging of the brain was performed without administration of intravenous contrast material. Individualized dose optimization techniques were used for this CT. COMPARISON: Comparison is made with prior study dated April 07, 2016. FINDINGS: Normal soft tissue structures. Normal calvarium. There is mild cerebral atrophy with widening of the extra-axial spaces and ventricular dilatation. There are areas of decreased attenuation within the white matter tracts of the supratentorial brain, consistent with microvascular disease changes. There is evidence of old lacunar infarcts in the left thalamus, right putamen and right matos radiata. Normal brainstem. Since prior study, there is evidence of encephalomalacia in the right cerebellar hemisphere. A CT scan with IV contrast is recommended for further evaluation. There is no intracranial hemorrhage. There are no findings of an acute ischemic infarction. Normal visualized paranasal sinuses. CT/Brain/Head without Contrast IMPRESSION: Since prior study, there is evidence of decreased attenuation in the right cerebellar hemisphere suggestive of a encephalomalacia. Correlation with a CT scan following IV contrast is recommended for further evaluation. Electronically Signed: Randy Murrell, at 10:26 EDT , Service support ,
--- NOTE | 2019-02-25 08:44 | ED.VISSUMM ---
- ER Visit Summary Date of Service: 02/25/19 Chief Complaint: Dizziness and fall History of Present Illness: The patient is a 58 M who presents for fall after becoming dizzy. Patient got up this morning and had been walking around his house when he became dizzy and fell down approximately 3 stairs. Patient states he landed on his arms. He does not think he hit his head. He does not think he lost consciousness. He is on Plavix. He denies any pain or complaints at this time. He is not having any chest pain, shortness of breath, dizziness, lightheadedness, vision changes, nausea or vomiting, or any pain. Tetanus up-to-date. He is supposed to get a heart catheterization this morning. Patient has history of coronary artery disease, prior stroke with residual right-sided weakness, diabetes and hypertension. Physical Examination: Vital signs: afebrile, hypotensive, no hypoxia on room air General: well nourished, well developed, in no distress Skin: warm, dry, no rash, no pallor HEENT: normocephalic and atraumatic; PERRL, EOMI, moist mucous membranes, oral tobacco on his tongue and lips Cardiovascular: regular rate and rhythm without murmurs, no peripheral edema, 2+ pulses all distal extremities Respiratory: No increased work of breathing, lungs are clear to auscultation bilaterally, no rales, rhonchi or wheezing Abdominal: Abdomen is soft, nontender with normoactive bowel sounds, no guarding or rebound, no masses MSK: Moves all extremities, no deformities, strength is baseline, small abrasions on the right dorsal wrist Neuro: Awake and alert, oriented ?4. No facial droop, sensation intact, mild right arm and leg drift which patient states is chronic Test Results: Clinical Impression(s) from Imaging Studies Brain CT 02/25/19 08:43 IMPRESSION: Since prior study, there is evidence of decreased attenuation in the right cerebellar hemisphere suggestive of a encephalomalacia. Correlation with a CT scan following IV contrast is recommended for further evaluation. Electronically Signed: Randy Murrell, at 10:26 EDT , Service support , Chest X-Ray 02/25/19 08:50 IMPRESSION: Normal x-ray examination of the chest. Electronically Signed: Randy Murrell, at 9:03 EDT , Service support , Abnormal Lab Results 02/25/19 02/25/19 02/25/19 08:30 08:30 08:30 WBC 13.5 H RBC 4.46 L Hgb 13.2 Hct 39.2 L MCV 87.9 MCH 29.6 MCHC 33.7 RDW 13.4 RDW Differential 42.8 Plt Count 239 MPV 11.1 Immature Gran % (Auto) 0.100 Neut % (Auto) 90.9 H Lymph % (Auto) 5.8 L Wilkinson % (Auto) 3.0 Eos % (Auto) 0.1 Baso % (Auto) 0.1 Absolute Neuts (auto) 12.3 H Absolute Lymphs (auto) 0.78 L Total Counted Not Reportable PT 14.1 INR 1.1 APTT 25.6 Sodium 136 Potassium 4.4 Chloride 104 Carbon Dioxide 24.0 Anion Gap 8 BUN 17 Creatinine 1.38 H Estim Creat Clear Calc 65.94 Est GFR (MDRD) Af Amer 68 Est GFR (MDRD) Non-Af 56 L BUN/Creatinine Ratio 12.3 Glucose 162 H Calcium 8.8 Troponin I < 0.015 Ethyl Alcohol POC Glucose 02/25/19 02/25/19 08:30 09:14 WBC RBC Hgb Hct MCV MCH MCHC RDW RDW Differential Plt Count MPV Immature Gran % (Auto) Neut % (Auto) Lymph % (Auto) Wilkinson % (Auto) Eos % (Auto) Baso % (Auto) Absolute Neuts (auto) Absolute Lymphs (auto) Total Counted PT INR APTT Sodium Potassium Chloride Carbon Dioxide Anion Gap BUN Creatinine Estim Creat Clear Calc Est GFR (MDRD) Af Amer Est GFR (MDRD) Non-Af BUN/Creatinine Ratio Glucose Calcium Troponin I Ethyl Alcohol 7.0 POC Glucose 145 H Emergency Department Course and Treatment: Patient presents hypotensive and was given an IV fluid bolus by EMS. Patient was given additional fluids in the emergency department. He was profoundly orthostatic positive. EKG showed sinus rhythm without ischemic changes. Labs showed negative troponin, creatinine of 1.38, which is a 20% increase from his prior values in the last month, a negative alcohol, normal fingerstick glucose, and mild leukocytosis of 13.[address] showed no intracranial hemorrhage. Chest x-ray showed no acute findings. After more IV fluids, patient's blood pressure did improve, however he remained orthostatically hypotensive. He was no longer having any dizziness, however his profound orthostatic changes likely did contribute to his dizziness this morning and his fall. Patient was discussed with Dr. Wilkins to let him know patient is in the hospital since patient missed his cardiac catheterization today. Patient was then discussed with Dr. Toney in for further work-up and management of patient's orthostatic hypotension of unclear origin, and his presyncope and dizzy episode this morning resulting in a fall. Treatment Plan: [] Disposition: [] Impression: Presyncope/dizziness, symptomatic orthostatic hypotension This note was generated with [employer] dictation software. It may contain incorrect words, spelling, and punctuation that were not noted in review of the chart prior to signing ED Disposition - Plan for ED Patient: Disposition: Acute Care Hospital [facility]
--- NOTE | 2019-02-25 08:47 | ED.DCSUM_ITS ---
- ER Visit Summary Date of Service: 02/25/19 Chief Complaint: Dizziness and fall History of Present Illness: The patient is a 58 M who presents for fall after becoming dizzy. Patient got up this morning and had been walking around his house when he became dizzy and fell down approximately 3 stairs. Patient states he landed on his arms. He does not think he hit his head. He does not think he lost consciousness. He is on Plavix. He denies any pain or complaints at this time. He is not having any chest pain, shortness of breath, dizziness, lightheadedness, vision changes, nausea or vomiting, or any pain. Tetanus up-to-date. He is supposed to get a heart catheterization this morning. Patient has history of coronary artery disease, prior stroke with residual right-sided weakness, diabetes and hypertension. Physical Examination: Vital signs: afebrile, hypotensive, no hypoxia on room air General: well nourished, well developed, in no distress Skin: warm, dry, no rash, no pallor HEENT: normocephalic and atraumatic; PERRL, EOMI, moist mucous membranes, oral tobacco on his tongue and lips Cardiovascular: regular rate and rhythm without murmurs, no peripheral edema, 2+ pulses all distal extremities Respiratory: No increased work of breathing, lungs are clear to auscultation bilaterally, no rales, rhonchi or wheezing Abdominal: Abdomen is soft, nontender with normoactive bowel sounds, no guarding or rebound, no masses MSK: Moves all extremities, no deformities, strength is baseline, small abrasions on the right dorsal wrist Neuro: Awake and alert, oriented ?4. No facial droop, sensation intact, mild right arm and leg drift which patient states is chronic Test Results: Clinical Impression(s) from Imaging Studies Brain CT 02/25/19 08:43 IMPRESSION: Since prior study, there is evidence of decreased attenuation in the right cerebellar hemisphere suggestive of a encephalomalacia. Correlation with a CT scan following IV contrast is recommended for further evaluation. Electronically Signed: Randy Murrell, at 10:26 EDT , Service support , Chest X-Ray 02/25/19 08:50 IMPRESSION: Normal x-ray examination of the chest. Electronically Signed: Randy Murrell, at 9:03 EDT , Service support , Abnormal Lab Results 02/25/19 02/25/19 02/25/19 08:30 08:30 08:30 WBC 13.5 H RBC 4.46 L Hgb 13.2 Hct 39.2 L MCV 87.9 MCH 29.6 MCHC 33.7 RDW 13.4 RDW Differential 42.8 Plt Count 239 MPV 11.1 Immature Gran % (Auto) 0.100 Neut % (Auto) 90.9 H Lymph % (Auto) 5.8 L Mccormick % (Auto) 3.0 Eos % (Auto) 0.1 Baso % (Auto) 0.1 Absolute Neuts (auto) 12.3 H Absolute Lymphs (auto) 0.78 L Total Counted Not Reportable PT 14.1 INR 1.1 APTT 25.6 Sodium 136 Potassium 4.4 Chloride 104 Carbon Dioxide 24.0 Anion Gap 8 BUN 17 Creatinine 1.38 H Estim Creat Clear Calc 65.94 Est GFR (MDRD) Af Amer 68 Est GFR (MDRD) Non-Af 56 L BUN/Creatinine Ratio 12.3 Glucose 162 H Calcium 8.8 Troponin I < 0.015 Ethyl Alcohol POC Glucose 02/25/19 02/25/19 08:30 09:14 WBC RBC Hgb Hct MCV MCH MCHC RDW RDW Differential Plt Count MPV Immature Gran % (Auto) Neut % (Auto) Lymph % (Auto) [place]orm[place] % (Auto) Eos % (Auto) Baso % (Auto) Absolute Neuts (auto) Absolute Lymphs (auto) Total Counted PT INR APTT Sodium Potassium Chloride Carbon Dioxide Anion Gap BUN Creatinine Estim Creat Clear Calc Est GFR (MDRD) Af Amer Est GFR (MDRD) Non-Af BUN/Creatinine Ratio Glucose Calcium Troponin I Ethyl Alcohol 7.0 POC Glucose 145 H Emergency Department Course and Treatment: Patient presents hypotensive and was given an IV fluid bolus by EMS. Patient was given additional fluids in the emergency department. He was profoundly orthostatic positive. EKG showed sinus rhythm without ischemic changes. Labs showed negative troponin, creatinine of 1.38, which is a 20% increase from his prior values in the last month, a negative alcohol, normal fingerstick glucose, and mild leukocytosis of 13.[address] showed no intracranial hemorrhage. Chest x-ray showed no acute findings. After more IV fluids, patient's blood pressure did improve, however he remained orthostatically hypotensive. He was no longer having any dizziness, however his profound orthostatic changes likely did contribute to his dizziness this morning and his fall. Patient was discussed with Dr. Wilkins to let him know patient is in the hospital since patient missed his cardiac catheterization today. Patient was then discussed with Dr. Toney in for further work-up and management of patient's orthostatic hypotension of unclear origin, and his presyncope and dizzy episode this morning resulting in a fall. Treatment Plan: [] Disposition: [] Impression: Presyncope/dizziness, symptomatic orthostatic hypotension This note was generated with [employer] dictation software. It may contain incorrect words, spelling, and punctuation that were not noted in review of the chart prior to signing ED Disposition - Plan for ED Patient: Disposition: Acute Care Hospital [facility]
--- NOTE | 2019-02-25 08:50 | RAD_ITS ---
STUDY: X-RAY CHEST REASON FOR EXAM: Male, 58 years old. Dizziness following medication. TECHNIQUE: Single AP portable view of the chest. COMPARISON: Comparison is made with prior study dated February 21, 2019. FINDINGS: EKG electrodes are seen. The lungs are clear and expanded. There is no demonstrated pleural abnormality. Normal size heart. Normal mediastinum and gilbert. Normal visualized pulmonary arteries. There is atherosclerotic tortuosity of the aortic arch and descending thoracic aorta. There are degenerative changes of the visualized thoracic spine. Normal visualized ribs, clavicles, and shoulders. There is no demonstrated abnormality of the visualized soft tissue structures of the upper abdomen. RAD/Chest 1 View (Portable) IMPRESSION: Normal x-ray examination of the chest. Electronically Signed: Randy Murrell, at 9:03 EDT , Service support ,
[2019-02-25 08:56] LABS: Absolute Lymphocyte Count 0.78 X10^3/ul (0.83-4.51); Absolute Neutrophil Count 12.3 X10^3/uL (2.0-7.7); Basophil# 0.01 X10^3/uL; Basophil% 0.1 % (0-1); Eosinophil# 0.01 X10^3/uL; Eosinophils% 0.1 % (0-5); Hematocrit 39.2 % (40-54); Hemoglobin 13.2 g/dl (13.0-16.5); Lymphocyte # 0.78 X10^3/ul (4.0); Lymphocyte % 5.8 % (19-41); Mean Corp Hgb Conc 33.7 g/gl (32-36); Mean Corpuscular Hgb 29.6 pg (27.0-32.0); Mean Corpuscular Volume 87.9 fL (80-94); Mean Platelet Vol. 11.1 fl (6.2-12.0); Monocyte# 0.41 X10^3/uL; Neutrophil # 12.27 X10^3/uL (2.7-7.7); Neutrophil % 90.9 % (47-70); Platelet Count 239 K/mm3 (150-450); RBC Distribution Width CV 13.4 % (11.6-14.6); RBC Distribution Width SD 42.8 fl (35.1-43.9); Red Blood Count 4.46 M/mm3 (4.6-6.2); White Blood Count 13.5 K/mm3 (4.4-11.0)
[2019-02-25 08:58] LABS: POSITIVE COUNT NO; POSITIVE DIFFERENTIAL NO; POSITIVE MORPHOLOGY NO
[2019-02-25 09:04] LABS: International Normalized Ratio 1.1; Prothrombin Time (Protime)PT. 14.1 SECONDS (11.7-14.9)
[2019-02-25 09:05] LABS: Partial Thromboplast Time 25.6 Seconds (24.1-36.2)
[2019-02-25] MEDS: 0.9% Normal Saline 1,000 ML 1000 ML IV (09:16)
[2019-02-25 09:31] LABS: Bedside Glucose 145 mg/dL (70-110)
[2019-02-25 10:18] LABS: Anion Gap 8 (5-15); BUN 17 mg/dL (7-18); BUN/Creat Ratio 12.3 RATIO (10-20); Calcium,Total 8.8 mg/dL (8.5-10.1); Chloride 104 mmol/L (98-107); Creatinine, Serum 1.38 mg/dL (0.70-1.30); EST Glomerular Filtration Rate 56 mL/min (>60); Est Glom Filt Rate - Afr Amer 68 mL/min (>60); Estimated Creatinine Clearance 65.94 ml/min; Glucose 162 mg/dL (74-106); Potassium 4.4 mmol/L (3.5-5.1); Sodium Level 136 mmol/L (136-145)
--- NOTE | 2019-02-25 11:12 | NURSING ---
DR MORLEY PAGED
--- NOTE | 2019-02-25 13:03 | NURSING ---
PCU [place] DIZZINESS, NEAR SYNCOPE, ORTHOSTATIC HYPOTENSION
--- NOTE | 2019-02-25 13:09 | CASEMGMT ---
RN CM Assessment Introduced role of RN CM to patient.? Patient is alert, oriented and able?to participate in RN CM Assessment. ?Care providers, pharmacy, and demographics verified. Presentation: Dizzy, Fall, On Plavix. H/o CAD, Prior stroke with residual Rt side weakness, DM & HTN. Supposed to get Cardiac Cath this AM. Admit Dx: Pre Syncope Re-Admit: No Barriers/Issues: None PCP: Rosario Arroyo Specialists: Cardio- Dr Wilkins Preferred Pharmacy: [facility] Insurance: [employer] [facility] Rx Benefit:?Yes LNOK: Mother Ct Anna LW/HPOA: No, Declines offered information. Living Arrangements:?Lives alone in a Lower Level apartment with no steps to enter. ADL?s: Independent with ambulation and ADL's Transportation: Brother Kyle's spouse Yecenia, on DC- friend Mr Pathak DME: Glucometer, Cane, Walker HHC: Past- cannot recall agency SNF: Past- [facility] Goal: Home, does not think will have any needs. DC PLAN: Home with no anticipated needs identified at this time. Jemma Rea RNCM
[2019-02-25] MEDS: 0.9% Normal Saline 1,000 ML 100 ML IV (14:08)
--- NOTE | 2019-02-25 14:34 | PCM.HP.STD ---
Problem List (1) Hypotension Status: Acute (2) Coronary artery disease Status: Chronic Qualifiers: (3) RASHAWN (acute kidney injury) Status: Acute (4) Diabetes Status: Chronic (5) HTN (hypertension) Status: Chronic Qualifiers: (6) Hyperlipidemia Status: Chronic Qualifiers: (7) Syncope Status: Acute History of Present Illness Date of Admission: 02/25/19 Chief Complaint: Syncope The patient is a 58 year old M with PMH as below who presents with syncope today. He states that he was getting up getting ready to come in for his cath when he walked around the side of his bed and he got lightheaded and dizzy and almost blacked out and fell down to the ground. He was able to get himself up and get ready. And then as he was leaving the house he was on the third step coming down the stairs and he fell down outside. At that point he does state that he blacked out but only for a little bit. The person is coming to get him to bring him for the cath was there and witnessed the fall. He denies any recent illnesses, and has not had any fevers or chills. He denies any skin changes or shortness of breath. In the ER he was found to have a slight leukocytosis as well as an RASHAWN. He is dehydrated and was given IV fluid boluses. Initial troponin was negative and a CT scan of his head was unremarkable for bleed. Currently is denying any chest pain and after IV fluids were provided stated that he felt great. Past Medical History Past Medical History (Chronic Problems): Chronic Problems (Last Reviewed 07/04/18 @ 01:38 by Anil Palmer MD) Coronary artery disease (Chronic) Tobacco chew use (Chronic) PFO (patent foramen ovale) (Chronic) Diabetes (Chronic) HTN (hypertension) (Chronic) Hyperlipidemia (Chronic) Smokeless tobacco use (Chronic) Uncontrolled type 2 diabetes mellitus (Chronic) CAD (coronary artery disease) (Chronic) Acute cerebrovascular accident of cerebellum (Chronic) CVA (cerebral vascular accident) (Chronic) S/P PTCA (percutaneous transluminal coronary angioplasty) (Chronic) Noncompliance with medication regimen (Chronic) Medical History: Medical History (Last Reviewed 07/04/18 @ 01:38 by Anil Palmer MD) Chest pain at rest (Acute) R07.9 Tobacco chew use (Chronic) Z72.0 RASHAWN (acute kidney injury) (Acute) N17.9 Chest pain (Acute) R07.9 Abnormal stress test (Acute) R94.39 PFO (patent foramen ovale) (Chronic) Q21.1 Diabetes (Chronic) E11.9 HTN (hypertension) (Chronic) I10 Hyperlipidemia (Chronic) E78.5 Smokeless tobacco use (Chronic) Z72.0 Uncontrolled type 2 diabetes mellitus (Chronic) E11.65 CAD (coronary artery disease) (Chronic) I25.10 Acute cerebrovascular accident of cerebellum (Chronic) I63.9 CVA (cerebral vascular accident) (Chronic) I63.9 Noncompliance with medication regimen (Chronic) Z91.14 Allergies ampicillin Allergy (Verified 02/25/19 08:20) Swelling ibuprofen [From Motrin] Allergy (Verified 02/25/19 08:20) Swelling SEA FOOD Allergy (Uncoded 02/25/19 08:20) Swelling Home Medications: Ambulatory Orders Medication Instructions Recorded Doxepin HCl 20 mg PO QHS 09/18/17 Oxycodone HCl/Acetaminophen 10 - 325 mg PO Q6H PRN PRN 09/18/17 [Percocet 10-325 mg Tablet] Aspirin E.C. [Ecotrin] 81 mg PO DAILY@0800 #90 tab 05/21/18 Isosorbide Mononitrate [Imdur] 30 mg PO DAILY #30 tab 05/22/18 Nitroglycerin (INPATIENT USE) 0.4 mg SUBLINGUAL Q5M PRN #10 tab 05/22/18 [Nitrostat] atorvastatin 40 mg tablet 40 mg PO DAILY 02/14/19 carvedilol 25 mg tablet 25 mg PO BID 02/14/19 clopidogrel 75 mg tablet 75 mg PO DAILY 02/14/19 diphenhydramine 25 mg capsule 25 mg PO .COMPLEX #4 cap 02/14/19 furosemide 20 mg tablet 20 mg PO DAILY PRN 02/14/19 insulin detemir (U-100) 100 25 unit SC QHS 02/14/19 unit/mL (3 mL) subcutaneous pen insulin lispro (U- 100) 100 15 unit SC TID 02/14/19 unit/mL subcutaneous cartridge lisinopril 10 mg tablet 10 mg PO BID tab 02/14/19 prednisone 20 mg tablet 20 mg PO .COMPLEX #9 tab 02/14/19 ranitidine 150 mg tablet 150 mg PO .COMPLEX #2 tab 02/14/19 Surgical History: Surgical History (Last Reviewed 07/04/18 @ 01:38 by Anil Palmer MD) S/P PTCA (percutaneous transluminal coronary angioplasty) (Chronic) Z98.61 Surgical History: angioplasty, - - PCI, ankle, hip surgery, stomach surgery, neck surgery. Psychiatric History: No pertinent psych hx Smoking Status: Never smoker Tobacco Use: Chew Alcohol: None Drugs: None - *Family History Maternal History Items: Diabetes Paternal History Items: Heart Disease Sibling History Items: Heart Disease - CAD Review of Systems Constitutional: Denies: Chills, Fever, Weight Change HEENT: Denies: Head Aches, Sinus Congestion, Sinus Drainage Cardiovascular: Reports: Light Headedness, Syncope. Denies: Chest Pain, Palpitations Respiratory: Denies: Cough, Shortness of breath at rest, Sputum production Gastrointestinal: Denies: Abdominal Pain, Nausea, Vomiting Genitourinary: Denies: Dysuria Musculoskeletal: Denies: Joint Pain, Joint Tenderness Skin: Denies: Rash, Wounds Neurological: Denies: Numbness, Tingling, Focal weakness Psychiatric: Denies: Anxiety, Depression Hematologic/ Lymphatic: Denies: Easy Bruising, Easy Bleeding VTE Information - Inpt Only VTE Present on Admission: No Patient Problems: Active and Suspected Problems (Last Reviewed 07/04/18 @ 01:38 by Anil Palmer MD) Syncope (Acute) - Physical Exam General: Alert, Oriented x3, Cooperative, No apparent distress HEENT: Atraumatic, PERRLA, EOMI, Normocephalic Oral: Moist Mucosa Neck: Supple, No JVD Lungs: Clear to auscultation, Normal air movement, No rhonchi, No wheeze, No rales Cardiovascular: Regular rate, Regular Rhythm, Normal S1, Normal S2, No murmurs Abdomen: Soft, Non Tender, Non-Distended, No Hepato-splenomegaly Extremities: No edema, Capillary Refill Less than 3 Seconds Skin: No rashes, No breakdown Neurological: Neuro grossly intact, Sensory exam intact to light touch and pain Psych/Mental Status: Normal Affect, Appropriate Vital Signs Temp Pulse Resp BP Pulse Ox 97.6 F L 81 16 134/91 H 98 02/25/19 13:43 02/25/19 13:43 02/25/19 13:43 02/25/19 13:43 02/25/19 13:43 Oxygen Delivery Method Room Air Weight: 187 lb 13.341 oz Body Mass Index (BMI) 24.9 Finger Stick Blood Glucose 145 Laboratory Tests Past 24 Hrs 02/25/19 02/25/19 02/25/19 08:30 08:30 08:30 WBC 13.5 H RBC 4.46 L Hgb 13.2 Hct 39.2 L MCV 87.9 MCH 29.6 MCHC 33.7 RDW 13.4 RDW Differential 42.8 Plt Count 239 MPV 11.1 Immature Gran % (Auto) 0.100 Neut % (Auto) 90.9 H Lymph % (Auto) 5.8 L [place] % (Auto) 3.0 Eos % (Auto) 0.1 Baso % (Auto) 0.1 Absolute Neuts (auto) 12.3 H Absolute Lymphs (auto) 0.78 L Total Counted Not Reportable PT 14.1 INR 1.1 APTT 25.6 Sodium 136 Potassium 4.4 Chloride 104 Carbon Dioxide 24.0 Anion Gap 8 BUN 17 Creatinine 1.38 H Estim Creat Clear Calc 65.94 Est GFR (MDRD) Af Amer 68 Est GFR (MDRD) Non-Af 56 L BUN/Creatinine Ratio 12.3 Glucose 162 H Calcium 8.8 Troponin I < 0.015 Ethyl Alcohol 02/25/19 08:30 WBC RBC Hgb Hct MCV MCH MCHC RDW RDW Differential Plt Count MPV Immature Gran % (Auto) Neut % (Auto) Lymph % (Auto) [place] % (Auto) Eos % (Auto) Baso % (Auto) Absolute Neuts (auto) Absolute Lymphs (auto) Total Counted PT INR APTT Sodium Potassium Chloride Carbon Dioxide Anion Gap BUN Creatinine Estim Creat Clear Calc Est GFR (MDRD) Af Amer Est GFR (MDRD) Non-Af BUN/Creatinine Ratio Glucose Calcium Troponin I Ethyl Alcohol 7.0 POC Glucose 02/25/19 09:14 POC Glucose 145 H Assessment/Plan All Active Problems (Last Reviewed 07/04/18 @ 01:38 by Anil Palmer MD) Hypotension (Acute) Abnormal EKG (Acute) Syncope (Acute) Chest pain at rest (Acute) RASHAWN (acute kidney injury) (Acute) Chest pain (Acute) Abnormal stress test (Acute) 1. Syncope/CAD/HTN/HLD/RASHAWN -He was preparing to come in for his cardiac cath today for stent, and passed out 2 or 3 times. -Denies any significant injury and does not recall hitting his head, CT scan in the ER was normal -We will hold all of his blood pressure medications and continue with IV fluids, obtain orthostatic vital signs -He received multiple IV fluid boluses in the ER and now feels back to baseline -Initial troponin was normal and EKG was unremarkable new ischemia, obtain serial troponin -Sugars 162 and he does have a slight bump in his creatinine to 1.38, baseline is closer to 1 -Continue with his Lipitor, aspirin, Plavix 2. Leukocytosis -Unsure of the etiology, chest x-ray is normal and will obtain urine -No signs of cellulitis anywhere -He is and has been afebrile for the last several days -Is likely reactive to distress from this morning, will repeat in the morning 3. IDDM 2 -He is on 25 units at night long-acting insulin as well as 15 units 3 times a day with meals -We will resume home insulin as well as a sliding scale insulin and Accu-Cheks 4. Depression/anxiety -Stable -Continue with doxepin DVT: Lovenox Code Visit OBSV E&M: 05140 Initial observation care L3
[2019-02-25] MEDS: Insulin Lispro 100 UNIT/ML INSULN.PEN 15 UNIT SC (16:47)
[2019-02-25 17:05] LABS: Bedside Glucose 136 mg/dL (70-110)
--- NOTE | 2019-02-25 17:20 | CON.PCM_ITS ---
Problem List (1) Syncope Status: Acute (2) Hypotension Status: Acute (3) Coronary artery disease Status: Chronic Qualifiers: Coronary Disease-Associated Artery/Lesion type: [place] artery [place] vs. transplanted heart: [place] heart (4) S/P PTCA (percutaneous transluminal coronary angioplasty) Status: Chronic (5) Hyperlipidemia Status: Chronic Qualifiers: (6) HTN (hypertension) Status: Chronic Qualifiers: (7) Diabetes Status: Chronic (8) RASHAWN (acute kidney injury) Status: Acute (9) Leukocytosis Status: Acute Reason for Consult Date of Consultation: 02/25/19 History of Present Illness: The patient is a 58 year old white male with a past cardiovascular history which is included underlying CAD, RCA PCI-chronically occluded, hyperlipidemia, hypertension, diabetes mellitus, a history of medication noncompliance, who now presents for evaluation of syncope and hypotension and acute renal insufficiency. He had previously been evaluated in cardiovascular consultation on 07-04-18 at [facility] for similar type concerns following a previous evaluation for an abnormal exercise tolerance test/imaging study and subsequent diagnostic cardiac catheterization. At that time he was recommended for medical management to document medication compliance prior to proceeding to any form of PCI procedure. He had admitted he had been noncompliant with medical therapy. He was found at that time to have evidence of hypotension thought related to decreased intravascular volume. His noninvasive cardiovascular evaluation was negative by cardiac enzymes. He continued medical management. He has subsequent he presented back to the outpatient setting stating that he was now compliant with medications and wanted to proceed with additional cardiovascular evaluation as previously recommended for consideration for PCI to his diagonal branch system. He was started on medical therapy including anti-platelet therapy with the medical/Plavix with a request to document compliance prior to proceeding for such therapy. His outpatient cardiovascular evaluation with cardiac catheterization and possible PCI was scheduled for earlier this day. However he presented back to the emergency department with concerns of near syncope/syncope and subsequent hypotension and acute renal insufficiency. He stated that he had been feeling well until this morning. This morning when he got up he subsequently went down. He states he got up again and subsequently went down. He had contacted his friend who was to bring him to the hospital. He states at that time upon leaving the house he went down again. He subsequently presented to the emergency department. He was found to be hypotensive and thought based on emergency department evaluation to be orthostatic with concerns of decreased intravascular volume and an element of acute renal insufficiency. He was treated with IV fluids. His cardiac enzymes were negative. His ECG demonstrated sinus rhythm with a nonspecific T wave change. He was placed in the ICU for further evaluation and care. His repeat troponin I levels have been negative. His cardiac rhythm has remained sinus rhythm. His blood pressures have normalized and/or return to being hypertens shabbir. He states he does not recall having any chest discomfort or difficulty breathing with his event. There was no nausea, emesis, or diaphoresis. He does not recall any palpitations or other type or rapid heart rate sensation. He states he is not clear whether he truly lost consciousness or not. He does not believe he injured himself with any of his episodes where he went down. At the present time he states he is feeling well. He appears to be receiving IV fluids and tolerating his IV fluids well thus far. He states that he discussed his case with his , who he readily admits at this time is in [facility], who told him she would rather have him alive than from being noncompliant with medications, etc., He states he has been taking his medications as he has been told to do so. [] Past Medical History Allergies/Adverse Reactions: Allergies ampicillin Allergy (Verified 02/25/19 08:20) Swelling ibuprofen [From Motrin] Allergy (Verified 02/25/19 08:20) Swelling SEA FOOD Allergy (Uncoded 02/25/19 08:20) Swelling Home Medications: Ambulatory Orders Medication Instructions Recorded Doxepin HCl 20 mg PO QHS 09/18/17 Oxycodone HCl/Acetaminophen 10 - 325 mg PO Q6H PRN PRN 09/18/17 [Percocet 10-325 mg Tablet] Aspirin E.C. [Ecotrin] 81 mg PO DAILY@0800 #90 tab 05/21/18 Isosorbide Mononitrate [Imdur] 30 mg PO DAILY #30 tab 05/22/18 Nitroglycerin (INPATIENT USE) 0.4 mg SUBLINGUAL Q5M PRN #10 tab 05/22/18 [Nitrostat] atorvastatin 40 mg tablet 40 mg PO DAILY 02/14/19 carvedilol 25 mg tablet 25 mg PO BID 02/14/19 clopidogrel 75 mg tablet 75 mg PO DAILY 02/14/19 diphenhydramine 25 mg capsule 25 mg PO .COMPLEX #4 cap 02/14/19 furosemide 20 mg tablet 20 mg PO DAILY PRN 02/14/19 insulin detemir (U-100) 100 25 unit SC QHS 02/14/19 unit/mL (3 mL) subcutaneous pen insulin lispro (U- 100) 100 15 unit SC TID 02/14/19 unit/mL subcutaneous cartridge lisinopril 10 mg tablet 10 mg PO BID tab 02/14/19 prednisone 20 mg tablet 20 mg PO .COMPLEX #9 tab 02/14/19 ranitidine 150 mg tablet 150 mg PO .COMPLEX #2 tab 02/14/19 Past Medical History (Chronic Problems): Chronic Problems (Last Reviewed 07/04/18 @ 01:38 by Anil Palmer MD) Coronary artery disease (Chronic) Tobacco chew use (Chronic) PFO (patent foramen ovale) (Chronic) Diabetes (Chronic) HTN (hypertension) (Chronic) Hyperlipidemia (Chronic) Smokeless tobacco use (Chronic) Uncontrolled type 2 diabetes mellitus (Chronic) CAD (coronary artery disease) (Chronic) Acute cerebrovascular accident of cerebellum (Chronic) CVA (cerebral vascular accident) (Chronic) S/P PTCA (percutaneous transluminal coronary angioplasty) (Chronic) Noncompliance with medication regimen (Chronic) Surgical History: angioplasty, - - PCI, ankle, hip surgery, stomach surgery, neck surgery. Psychiatric History: No pertinent psych hx - *Family History Maternal History Items: Diabetes Paternal History Items: Heart Disease Sibling History Items: Heart Disease - CAD Smoking Status: Never smoker Tobacco Use: Chew Alcohol: None Drugs: None Review of Systems - Review of Systems General: Denies: Fever, Night Sweats, Fatigue Cardiovascular: Reports: Near Syncope, Syncope. Denies: Chest Discomfort, Shortness of Breath, Orthopnea, PND, Peripheral Edema, Palpitations, Lightheadedness, Dizziness Respiratory: Denies: Cough, Sputum Production, Hemoptysis Gastrointestinal: Denies: Hematemesis, Hematochezia, Melena Genitourinary: Denies: Dysuria, Hematuria Skin: Denies: Rash Subjectve: This is a 58-year-old white male who appears to be resting comfortably at the moment in no acute distress. Objective: Vital Signs Temp Pulse Resp BP Pulse Ox 97.6 F L 68 16 151/90 H 98 02/25/19 16:35 02/25/19 16:35 02/25/19 16:35 02/25/19 16:35 02/25/19 16:35 Oxygen Delivery Method Room Air Weight: 187 lb 13.341 oz Body Mass Index (BMI) 24.9 Finger Stick Blood Glucose 145 Orthostatic Vital Signs Start: 02/25/19 16:29 Freq: q24h Status: Active Protocol: Activity Type Activity Date Activity User E-Sign Co-Sign Detail Recorded Client Recorded Date Recorded By Document 02/25/19 16:29 [id number] 02/25/19 16:43 RV 02/25/19 16:29 Orthostatic Vitals Standing -Blood Pressure (90/60-120/80 mm Hg) 143/91 H -Extremity Use Right Arm -Pulse Rate (60-100 beats/min) 95 Sitting -Blood Pressure (90/60-120/80 mm Hg) 151/95 H -Extremity Use Right Arm -Pulse Rate (60-100 beats/min) 101 H Lying -Blood Pressure (90/60-120/80 mm Hg) 151/90 H -Extremity Use Right Arm -Pulse Rate (60-100 beats/min) 72 Intake and Output for Last 24 Hours 02/23/19 02/24/19 02/25/19 23:59 23:59 23:59 Intake Total 458 / 458 Balance 458 / 458 General: Awake, Alert, Oriented x 3, Cooperative, No Acute Distress HEENT: Atraumatic, Normocephalic, PERRL, EOMI, Sclera Non Icteric Neck: Supple, Good ROM, No JVD Lungs: Clear to auscultation Cardiovascular: Regular Rhythm, Normal S1, Normal S2 Vascular: No Carotid Bruits Abdomen: Bowel Sounds Present, Soft, Non Tender Extremities: No edema Psych/Mental Status: Appropriate 02/25/19 08:30: WBC 13.5 H, RBC 4.46 L, Hgb 13.2, Hct 39.2 L, MCV 87.9, MCH 29.6, MCHC 33.7, RDW 13.4, RDW Differential 42.8, Plt Count 239, MPV 11.1, Immature Gran % (Auto) 0.100, Neut % (Auto) 90.9 H, Lymph % (Auto) 5.8 L, [place] % (Auto) 3.0, Eos % (Auto) 0.1, Baso % (Auto) 0.1, Absolute Neuts (auto) 12.3 H, Total Counted Not Reportable 02/25/19 08:30: PT 14.1, INR 1.1, APTT 25.6 02/25/19 08:30: Sodium 136, Potassium 4.4, Chloride 104, Carbon Dioxide 24.0, Anion Gap 8, BUN 17, Creatinine 1.38 H, Est GFR (MDRD) Af Amer 68, Est GFR (MDRD) Non-Af 56 L, BUN/Creatinine Ratio 12.3, Glucose 162 H, Calcium 8.8, Troponin I < 0.015 02/25/19 14:30: Troponin I < 0.015 Rhythm: Sinus rhythm EKG: As noted above ECHO: 06-21-2018: Left ventricle with regional wall motion abnormalities with an LVEF of 45% with severe left atrial enlargement, trivial MR, trivial TR, estimated RV systolic pressure of 26 mmHg Stress Test: 05-21-2018: Pharmacologic stress nuclear imaging study demonstrating myocardial perfusion changes appearing compatible with an area of previous myocardial injury/infarction involving the basal to mid lateral segment with post stress myocardial perfusion changes appearing compatible with erum-infarct related myocardial ischemia with a gated LVEF of 36% Cardiac Cath: 05-21-2018 Elevated left ventricular end-diastolic pressure Segmental left ventricular systolic dysfunction-mild LVEF by LV gram 50% [place] multivessel CAD Dominance: Codominant Left main coronary artery: Angiographically normal Left anterior descending coronary artery: Proximal LAD with eccentric 25% stenosis; mid LAD with minimal luminal irregularities Diagonal branch #1 with proximal serial 85% stenosis Circumflex artery: Mild luminal irregularities Right coronary artery: Distal subtotally occluded-previously placed stent occluded CXR: Preliminary evaluation: No acute cardiopulmonary disease process appreciated: Please see official report Assessment/Plan 1. Near syncope/syncope The patient had episodes of near syncope/syncope at home. Based upon the evaluation thus far there are concerns this was related to hypotension related to decreased intravascular volume bringing out orthostatic type changes. The patient's cardiovascular evaluation thus far with respect to cardiac enzymes have been negative. His cardiac rhythm has remained sinus rhythm. There has been no other noncardiac etiology to explain his event thus far. At the present time he will continue to be monitored. His cardiac enzymes and cardiac rhythm and ECG will be followed. Barring unforeseen change in his clinical course he will proceed with his previously scheduled diagnostic cardiac catheterization and depending upon the findings possible PCI. In the interim he will continue medical therapy with adjustment of dose as needed. 2. Hypotension Again there is concern the patient's hypotension may have been related to decreased intravascular volume. The patient will continue to be followed. He has received IV fluids. His diuretic therapy is on hold at this time. He will be monitored for any other cardiac or noncardiac etiologies that may explain his event. 3. CAD status post RCA PCI-remote The patient has had previous diagnosis of CAD and underwent RCA PCI in the past. As noted above his RCA PCI is chronically occluded. He has undergone previous evaluation both noninvasively and invasively as documented above. There were concerns that the patient would be considered for additional PCI to the diagonal branch system if he was compliant with medical therapy and his diagonal branch system was amenable to such procedure. At the present time he states he has been on medications as recommended. He will continue to be monitored as noted above. Barring unforeseen change in his clinical status he will undergo repeat diagnostic cardiac catheterization and depending upon the findings be considered for possible PCI. 4. Hyperlipidemia He will need to continue risk factor modification and care. 5. Hypertension The patient has a history of hypertension. His low blood pressures have been recuperating and is been now back to being hypertensive. His medications will be reinstituted with dosage adjustment as deemed appropriate. 6. Diabetes mellitus The patient will continue under evaluation care per internal medicine. 7. Acute renal insufficiency The patient's creatinine level was elevated. This may be secondary to his diminished intravascular volume, etc. He has received IV fluids. His creatinine level will be followed. 8. Leukocytosis The patient does have a leukocytosis. This may be secondary to his pre-cardiac catheterization medications with corticosteroids. However the same time he will be monitored for any obvious issues with respect to any underlying infectious disease related etiology. Comment: The patient's case has been discussed and reviewed with the patient, the [facility] emergency department staff, and the [facility] hospital staff. This note was generated using a voice recognition system and there may be incorr ect words, spelling or punctuation that were not noted when reviewing the office note prior to saving.
[2019-02-25 18:27] LABS: Bacteria 0 SEEN /hpf (None Seen); Mucous, Urine 0 SEEN /hpf (<or=2+); Squamous Epithelial Cells - UA 0 SEEN /hpf (0-5); White Blood Cells 0 SEEN /hpf (0-5)
[2019-02-25 18:39] LABS: Color, Urine Yellow (Yellow); Glucose, Dipstick Normal (Normal); Ketone-Dipstick Negative (Negative); Leukocyte Esterase-Dipstick Negative /ul (Negative); Nitrite-Dipstick Negative (Negative); Occult Blood-Urine Negative /ul (Negative); Protein-Dipstick Negative (Negative); Urine Bilirubin Dipstick Negative (Negative); Urine Clarity Clear (Clear); Urine Urobilinogen Normal (Normal)
[2019-02-25 18:44] LABS: Red Blood Cells-Urine 0-5 SEEN /hpf (0-5)
--- NOTE | 2019-02-25 19:37 | EKG12_ITS ---
Test Reason : CHEST PAIN Blood Pressure : / mmHG Vent. Rate : 089 BPM Atrial Rate : 089 BPM P-R Int : 172 ms QRS Dur : 092 ms QT Int : 358 ms P-R-T Axes : 041 015 096 degrees QTc Int : 435 ms Normal sinus rhythm Nonspecific T wave abnormality Abnormal ECG When compared with ECG of 04-JUL-2018 07:50, No significant change was found Confirmed by JOELLE GAXIOLA, AMRITA ([id number]), editor managing newspaper BAILEY VALLEJO ([id number]) on 02/27/2019 11:58:36 AM Referred By: THEE Confirmed By:AMRITA LAI MD
[2019-02-25] MEDS: DiphenhydrAMINE 25 MG Capsule 50 MG PO (21:26)
[2019-02-25] MEDS: Atorvastatin Calcium 40 MG Tablet PO (21:27)
[2019-02-25] MEDS: Carvedilol 12.5 MG Tablet PO (21:28)
[2019-02-25] MEDS: Famotidine 20 MG Tablet PO (21:28)
[2019-02-25] MEDS: predniSONE 20 MG Tablet 60 MG PO (21:28)
[2019-02-25] MEDS: Doxepin Hydrochloride 10 MG Capsule 20 MG PO (21:28)
[2019-02-25] MEDS: Lisinopril 5 MG Tablet PO (21:28)
[2019-02-25 21:45] LABS: Bedside Glucose 138 mg/dL (70-110)
[2019-02-26] VITALS (34 sets, daily range): BP systolic 126–196; BP diastolic 63–128; PULSE 70–109; RESP 16–27; TEMP 36.4–36.9; O2SAT 94–981; BMI 24.9
[2019-02-26] MEDS: 0.9% Normal Saline 1,000 ML 100 ML IV ×3 (00:02→19:36)
[2019-02-26 05:31] LABS: Absolute Lymphocyte Count 0.69 X10^3/ul (0.83-4.51); Absolute Neutrophil Count 13.2 X10^3/uL (2.0-7.7); Basophil# 0.01 X10^3/uL; Basophil% 0.1 % (0-1); Hemoglobin 13.8 g/dl (13.0-16.5); Lymphocyte # 0.69 X10^3/ul (4.0); Lymphocyte % 4.9 % (19-41); Mean Corp Hgb Conc 33.7 g/gl (32-36); Mean Corpuscular Hgb 29.7 pg (27.0-32.0); Mean Corpuscular Volume 88.2 fL (80-94); Mean Platelet Vol. 11.2 fl (6.2-12.0); Monocyte% 1.4 % (0-10); Neutrophil # 13.19 X10^3/uL (2.7-7.7); Neutrophil % 93.5 % (47-70); Platelet Count 224 K/mm3 (150-450); RBC Distribution Width CV 13.5 % (11.6-14.6); RBC Distribution Width SD 43.5 fl (35.1-43.9); Red Blood Count 4.65 M/mm3 (4.6-6.2); White Blood Count 14.1 K/mm3 (4.4-11.0)
[2019-02-26] MEDS: DiphenhydrAMINE 25 MG Capsule 50 MG PO (05:31)
[2019-02-26] MEDS: predniSONE 20 MG Tablet 60 MG PO (05:31)
[2019-02-26] MEDS: Clopidogrel Bisulfate 75 MG Tablet PO (05:31)
[2019-02-26] MEDS: Aspirin E.C. 81 MG Tablet PO (05:31)
[2019-02-26] MEDS: Carvedilol 12.5 MG Tablet PO ×2 (05:32→11:38)
[2019-02-26] MEDS: Lisinopril 5 MG Tablet PO ×2 (05:32→11:38)
[2019-02-26 05:40] LABS: International Normalized Ratio 1.1
[2019-02-26 05:41] LABS: Partial Thromboplast Time 26.4 Seconds (24.1-36.2)
[2019-02-26 05:48] LABS: Anion Gap 10 (5-15); BUN 22 mg/dL (7-18); BUN/Creat Ratio 19.3 RATIO (10-20); Calcium,Total 8.4 mg/dL (8.5-10.1); Chloride 108 mmol/L (98-107); Creatinine, Serum 1.14 mg/dL (0.70-1.30); EST Glomerular Filtration Rate 70 mL/min (>60); Est Glom Filt Rate - Afr Amer 85 mL/min (>60); Estimated Creatinine Clearance 77.52 ml/min; Glucose 161 mg/dL (74-106); Potassium 4.3 mmol/L (3.5-5.1); Sodium Level 142 mmol/L (136-145)
--- NOTE | 2019-02-26 05:55 | EKG12_ITS ---
Test Reason : AM EKG Blood Pressure : / mmHG Vent. Rate : 073 BPM Atrial Rate : 073 BPM P-R Int : 158 ms QRS Dur : 092 ms QT Int : 408 ms P-R-T Axes : 042 034 111 degrees QTc Int : 449 ms Normal sinus rhythm Possible Left atrial enlargement T wave abnormality, consider inferior ischemia Abnormal ECG When compared with ECG of 25-FEB-2019 19:46, MANUAL COMPARISON REQUIRED, DATA IS UNCONFIRMED Confirmed by JOELLE GAXIOLA, AMRITA ([id number]), editor farm journal BAILEY VALLEJO ([id number]) on 02/27/2019 11:56:59 AM Referred By: BARBARA Confirmed By:AMRITA LAI MD
[2019-02-26 06:04] LABS: POSITIVE COUNT NO; POSITIVE DIFFERENTIAL NO; POSITIVE MORPHOLOGY NO
[2019-02-26 07:10] LABS: Bedside Glucose 156 mg/dL (70-110)
--- NOTE | 2019-02-26 07:28 | NURSING ---
Called report to [facility] in catheterization laboratory technician
[2019-02-26] MEDS: Famotidine 20 MG Tablet PO (07:29)
--- NOTE | 2019-02-26 08:06 | PN_ITS ---
Patient Problems: Active and Suspected Problems (Last Reviewed 07/04/18 @ 01:38 by Anil Palmer MD) Syncope (Acute) Leukocytosis (Acute) Subjective: Feels great today and is anticipating his cardiac cath today. Vitals/I&O's: Vital Signs Temp Pulse Resp BP Pulse Ox 98.4 F 72 16 158/102 H 96 02/26/19 05:24 02/26/19 05:24 02/26/19 05:24 02/26/19 05:24 02/26/19 05:24 Oxygen Delivery Method Room Air Weight: 187 lb 13.341 oz Body Mass Index (BMI) 24.9 Finger Stick Blood Glucose 145 Orthostatic Vital Signs Start: 02/25/19 16:29 Freq: q24h Status: Active Protocol: Activity Type Activity Date Activity User E-Sign Co-Sign Detail Recorded Client Recorded Date Recorded By Document 02/26/19 03:39 [facility] [id number] 02/26/19 03:41 [facility] 02/26/19 03:39 Orthostatic Vitals Standing -Blood Pressure (90/60-120/80) 176/111 H -Extremity Use Right Arm -Pulse Rate (60-100) 80 Sitting -Blood Pressure (90/60-120/80) 148/111 H -Extremity Use Right Arm -Pulse Rate (60-100) 76 Lying -Blood Pressure (90/60-120/80) 156/101 H -Extremity Use Right Arm -Pulse Rate (60-100) 77 Intake and Output for Last 24 Hours 02/24/19 02/25/19 02/26/19 23:59 23:59 23:59 Intake Total 2324 / 2324 533 / 533 Output Total 1525 / 1525 Balance 2324 / 2324 -992 / -992 General: Alert, Oriented x3, Cooperative, No apparent distress HEENT: Atraumatic, PERRLA, EOMI, Normocephalic Oral: Moist Mucosa Neck: Supple, No JVD Lungs: Clear to auscultation, Normal air movement, No rhonchi, No wheeze, No rales, Diminished Cardiovascular: Regular rate, Regular Rhythm, Normal S1, Normal S2, No murmurs Abdomen: Soft, Non Tender, Non-Distended, No Hepato-splenomegaly Extremities: No edema, Capillary Refill Less than 3 Seconds Skin: No rashes, No breakdown Neurological: Neuro grossly intact, Sensory exam intact to light touch and pain Psych/Mental Status: Normal Affect, Appropriate Laboratory Results 02/25/19 08:30: WBC 13.5 H, RBC 4.46 L, Hgb 13.2, Hct 39.2 L, MCV 87.9, MCH 29.6, MCHC 33.7, RDW 13.4, RDW Differential 42.8, Plt Count 239, MPV 11.1, Immature Gran % (Auto) 0.100, Neut % (Auto) 90.9 H, Lymph % (Auto) 5.8 L, [place] % (Auto) 3.0, Eos % (Auto) 0.1, Baso % (Auto) 0.1, Absolute Neuts (auto) 12.3 H, Absolute Lymphs (auto) 0.78 L, Total Counted Not Reportable 02/25/19 08:30: PT 14.1, INR 1.1, APTT 25.6 02/25/19 08:30: Sodium 136, Potassium 4.4, Chloride 104, Carbon Dioxide 24.0, Anion Gap 8, BUN 17, Creatinine 1.38 H, Estim Creat Clear Calc 65.94, Est GFR (MDRD) Af Amer 68, Est GFR (MDRD) Non-Af 56 L, BUN/Creatinine Ratio 12.3, Glucose 162 H, Calcium 8.8, Troponin I < 0.015 02/25/19 08:30: Ethyl Alcohol 7.0 02/25/19 09:14: POC Glucose 145 H 02/25/19 14:30: Troponin I < 0.015 02/25/19 16:26: POC Glucose 136 H 02/25/19 17:15: Troponin I < 0.015 02/25/19 18:05: Urine Color Yellow, Urine Clarity Clear, Urine pH 5.0, Ur Specific [place] 1.010, Urine Protein Negative, Urine Glucose (UA) Normal, Urine Ketones Negative, Urine Occult Blood Negative, Urine Nitrite Negative, Urine Bilirubin Negative, Urine Urobilinogen Normal, Ur Leukocyte Esterase Negative, Urine RBC 0-5 SEEN, Urine WBC 0 SEEN, Ur Squamous Epith Cells 0 SEEN, Urine Bacteria 0 SEEN, Urine Mucus 0 SEEN 02/25/19 21:25: POC Glucose 138 H 02/26/19 05:15: Sodium 142, Potassium 4.3, Chloride 108 H, Carbon Dioxide 24.0, Anion Gap 10, BUN 22 H, Creatinine 1.14, Estim Creat Clear Calc 77.52, Est GFR (MDRD) Af Amer 85, Est GFR (MDRD) Non-Af 70, BUN/Creatinine Ratio 19.3, Glucose 161 H, Calcium 8.4 L 02/26/19 05:15: WBC 14.1 H, RBC 4.65, Hgb 13.8, Hct 41.0, MCV 88.2, MCH 29.7, MCHC 33.7, RDW 13.5, RDW Differential 43.5, Plt Count 224, MPV 11.2, Immature Gran % (Auto) 0.100, Neut % (Auto) 93.5 H, Lymph % (Auto) 4.9 L, [place] % (Auto) 1.4, Eos % (Auto) 0.0, Baso % (Auto) 0.1, Absolute Neuts (auto) 13.2 H, Absolute Lymphs (auto) 0.69 L, Total Counted Not Reportable 02/26/19 05:15: PT 14.0, INR 1.1, APTT 26.4 02/26/19 06:53: POC Glucose 156 H Current Medications Aspirin (Ecotrin) 81 mg PO DAILY@0800 [facility] Last Admin: 02/26/19 05:31 Dose: 81 mg Atorvastatin Calcium (Lipitor) 40 mg PO QHS [facility] Last Admin: 02/25/19 21:27 Dose: 40 mg Carvedilol (Coreg) 12.5 mg PO BID [facility] Last Admin: 02/26/19 05:32 Dose: 12.5 mg Clopidogrel Bisulfate (Plavix) 75 mg PO DAILY [facility] Last Admin: 02/26/19 05:31 Dose: 75 mg Dextrose (D50w Syringe) 0 gm IV X1 PRN; Protocol PRN Reason: Hypoglycemia Doxepin HCl (Sinequan) 20 mg PO QHS [facility] Last Admin: 02/25/19 21:28 Dose: 20 mg Enoxaparin Sodium (Lovenox) 40 mg SC DAILY@1000 [facility] Glucagon () 1 mg IM .X1 PRN PRN Reason: Hypoglycemia Sodium Chloride () 1,000 mls @ 100 mls/hr IV .Q10H [facility] Last Admin: 02/26/19 00:02 Dose: 100 mls/hr Sodium Chloride () 1,000 mls @ 15 mls/hr IV .Q48H [facility] Last Admin: 02/25/19 17:25 Dose: Not Given Insulin Glargine (Lantus (Bk)) 25 units SC QHS [facility] Last Admin: 02/25/19 21:27 Dose: 25 u Insulin Human Lispro (Humalog Kwikpen (Bk)) 0 unit SQ ACHS DIMITRIS; Protocol Last Admin: 02/25/19 21:25 Dose: Not Given Insulin Human Lispro (Humalog Kwikpen (Bk)) 15 unit SC TIDCM [facility] Last Admin: 02/25/19 16:47 Dose: 15 u Lisinopril (Zestril) 5 mg PO BID [facility] Last Admin: 02/26/19 05:32 Dose: 5 mg Nicotine (Nicoderm Cq ([facility])) 14 mg TRANSDERM. DAILY [facility] Last Admin: 02/26/19 00:01 Dose: 14 mg Nitroglycerin (Nitrostat) 0.4 mg SUBLINGUAL Q5M PRN PRN Reason: CARDIAC/CHEST PAIN Sodium Chloride () 5 - 15 ml IV UD PRN PRN Reason: SALINE FLUSH Medical Necessity - Tobacco Use Smoking Status: Never smoker Tobacco Use: Chew Assessment/Plan All Active Problems (Last Reviewed 07/04/18 @ 01:38 by Anil Palmer MD) Hypotension (Acute) Abnormal EKG (Acute) Syncope (Acute) Leukocytosis (Acute) Chest pain at rest (Acute) RASHAWN (acute kidney injury) (Acute) Chest pain (Acute) Abnormal stress test (Acute) 1. Syncope/CAD/HTN/HLD/RASHAWN -He was preparing to come in for his cardiac cath today for stent, and passed out 2 or 3 times. -Denies any significant injury and does not recall hitting his head, CT scan in the ER was normal -Resume all of his blood pressure medications since now he is little bit hypertensive with all the fluid he is received -He received multiple IV fluid boluses in the ER and now feels back to baseline -Initial troponin was normal and EKG was unremarkable new ischemia, obtain serial troponin -Sugars 161 and he does have a slight bump in his creatinine to 1.38 on admission, now he is back to baseline -Continue with his Lipitor, aspirin, Plavix 2. Leukocytosis -Unsure of the etiology, chest x-ray is normal, and urine is unremarkable -No signs of cellulitis anywhere -He is and has been afebrile for the last several days -Is likely reactive to distress from this morning 3. IDDM 2 -He is on 25 units at night long-acting insulin as well as 15 units 3 times a day with meals -We will resume home insulin as well as a sliding scale insulin and Accu-Cheks 4. Depression/anxiety -Stable -Continue with doxepin DVT: Lovenox Code Visit OBSV E&M: [id number] Subsequent observation care L2
--- NOTE | 2019-02-26 08:43 | CASEMGMT ---
According to the [facility] website, the following are in-network tertiary facilities: [facility], [place], [facility], [facility], [facility], [facility], and . Salome PRABHAKAR CM
--- NOTE | 2019-02-26 08:59 | ECHOD_ITS ---
Reason For Study: CAD Procedure This was a 2D Doppler, Color Flow transthoracic echocardiogram. The exam was of adequate technical quality. Exam performed portable in ICU/CCU. Left Ventricle Normal LV size. Mild segmental systolic dysfunction (see wall motion). The estimated ejection fraction is 50 %. There is evidence of diastolic dysfunction. Lateral-Basal: Hypokinetic. Posterior- Basal: Hypokinetic. Infero-Basal: Hypokinetic. Mid-Anterior : Hypokinetic. Mid-Lateral : Hypokinetic. Right Ventricle Normal RV size. Normal systolic function. Atria The left atrium is moderately enlarged. Normal right atrium. No doppler evidence for ASD. Mitral Valve There is mild mitral annular calcification. Extension of the mitral annular calcification onto the posterior mitral valve leaflet. Mild-Moderate (1-2+) mitral valve insufficiency. Tricuspid Valve Normal tricuspid valve. Trivial tricuspid valve insufficiency. Right ventricular systolic pressure estimated to be 45 mmHg. Aortic Valve Trisinus/trileaflet aortic valve. Normal aortic valve. Pulmonic Valve The pulmonic valve is not well visualized. Great Vessels Normal sized aortic root. Pericardium/Pleural No pericardial effusion. MMode/2D Measurements & Calculations LVIDd: 4.4 cm IVSd: 1.3 cm Ao root diam: 3.1 cm LVIDs: 3.2 cm LVPWd: 1.2 cm RVDd: 3.9 cm FS: 26.9 % LAV(MOD-bp): 87.4 ml LA A4 area: 25.4 cm2 LA dimension(2D): 4.6 cm LAV(MOD-bp) Indexed: 42.2 ml/m2 LAV(MOD-sp2): 89.7 ml LAV(MOD-sp4): 81.3 ml RA A4 area: 17.1 cm2 Time Measurements MV dec time: 0.17 sec Doppler Measurements & Calculations MV E max brendan: 105.2 cm/sec Lat Peak E' Brendan: 6.6 cm/sec Med Peak E' Brendan: 5.6 cm/sec MV A max brendan: 57.7 cm/sec E/E' lat: 16.0 E/E' med: 18.9 MV E/A: 1.8 Ao V2 max: 108.6 cm/sec LV V1 max: 89.5 cm/sec TR max brendan: 322.7 cm/sec Ao max P.7 mmHg LV V1 max P.2 mmHg TR max P.7 mmHg Interpretation Summary Mild segmental systolic dysfunction (see wall motion). The estimated ejection fraction is 50 %. The left atrium is moderately enlarged. There is mild mitral annular calcification. Extension of the mitral annular calcification onto the posterior mitral valve leaflet. Mild-Moderate (1-2+) mitral valve insufficiency. Trivial tricuspid valve insufficiency. Right ventricular systolic pressure estimated to be 45 mmHg. There is evidence of diastolic dysfunction. Ordering Physician: Kwabena Wilkins Referring Physician: THOMAS PHELPS Performed By: Alisa Alfonso, RDCS, RVT
--- NOTE | 2019-02-26 09:00 | PCM.PN.CARD ---
Subjectve: The patient is awake and alert. He has had no new acute complaints. He is now status post diagnostic cardiac catheterization via the right radial artery approach. He is pending PCI of the diagonal branch system. Objective: Vital Signs Temp Pulse Resp BP Pulse Ox 98.4 F 72 16 158/102 H 96 02/26/19 05:24 02/26/19 07:06 02/26/19 05:24 02/26/19 05:24 02/26/19 05:24 Oxygen Delivery Method Room Air Weight: 187 lb 13.341 oz Body Mass Index (BMI) 24.9 Finger Stick Blood Glucose 145 Orthostatic Vital Signs Start: 02/25/19 16:29 Freq: q24h Status: Active Protocol: Activity Type Activity Date Activity User E-Sign Co-Sign Detail Recorded Client Recorded Date Recorded By Document 02/26/19 03:39 [facility] [id number] 02/26/19 03:41 [facility] 02/26/19 03:39 Orthostatic Vitals Standing -Blood Pressure (90/60-120/80) 176/111 H -Extremity Use Right Arm -Pulse Rate (60-100) 80 Sitting -Blood Pressure (90/60-120/80) 148/111 H -Extremity Use Right Arm -Pulse Rate (60-100) 76 Lying -Blood Pressure (90/60-120/80) 156/101 H -Extremity Use Right Arm -Pulse Rate (60-100) 77 Intake and Output for Last 24 Hours 02/24/19 02/25/19 02/26/19 23:59 23:59 23:59 Intake Total 2324 / 2324 533 / 533 Output Total 1525 / 1525 Balance 2324 / 2324 -992 / -992 General: Awake, Alert, Oriented x 3, Cooperative, No Acute Distress HEENT: Atraumatic, Normocephalic, PERRL, EOMI, Sclera Non Icteric Oral: Moist Mucosa Neck: Supple, Good ROM, No JVD Lungs: Clear to auscultation Cardiovascular: Regular Rhythm, Normal S1, Normal S2 Abdomen: Bowel Sounds Present, Soft, Non Tender Extremities: No edema Neurological: No Focal Motor or Sensory Deficit Psych/Mental Status: Appropriate 02/25/19 08:30: PT 14.1, INR 1.1, APTT 25.6 02/25/19 08:30: Sodium 136, Potassium 4.4, Chloride 104, Carbon Dioxide 24.0, Anion Gap 8, BUN 17, Creatinine 1.38 H, Est GFR (MDRD) Af Amer 68, Est GFR (MDRD) Non-Af 56 L, BUN/Creatinine Ratio 12.3, Glucose 162 H, Calcium 8.8, Troponin I < 0.015 02/25/19 14:30: Troponin I < 0.015 02/25/19 17:15: Troponin I < 0.015 02/25/19 18:05: Urine Color Yellow, Urine Clarity Clear, Urine pH 5.0, Ur Specific [place] 1.010, Urine Protein Negative, Urine Glucose (UA) Normal, Urine Ketones Negative, Urine Occult Blood Negative, Urine Nitrite Negative, Urine Bilirubin Negative, Urine Urobilinogen Normal, Ur Leukocyte Esterase Negative, Urine RBC 0-5 SEEN, Urine WBC 0 SEEN 02/26/19 05:15: Sodium 142, Potassium 4.3, Chloride 108 H, Carbon Dioxide 24.0, Anion Gap 10, BUN 22 H, Creatinine 1.14, Est GFR (MDRD) Af Amer 85, Est GFR (MDRD) Non-Af 70, BUN/Creatinine Ratio 19.3, Glucose 161 H, Calcium 8.4 L 02/26/19 05:15: WBC 14.1 H, RBC 4.65, Hgb 13.8, Hct 41.0, MCV 88.2, MCH 29.7, MCHC 33.7, RDW 13.5, RDW Differential 43.5, Plt Count 224, MPV 11.2, Immature Gran % (Auto) 0.100, Neut % (Auto) 93.5 H, Lymph % (Auto) 4.9 L, [place] % (Auto) 1.4, Eos % (Auto) 0.0, Baso % (Auto) 0.1, Absolute Neuts (auto) 13.2 H, Total Counted Not Reportable 02/26/19 05:15: PT 14.0, INR 1.1, APTT 26.4 Rhythm: Sinus rhythm Cardiac Cath: Preliminary report: Left main coronary artery patent MS: LAD patent: Diagonal branch #1 with serial 85% stenosis: LCx patent: RCA distal stent chronically occluded: Please see official report Medical Necessity - Tobacco Use Smoking Status: Never smoker Tobacco Use: Chew Assessment/Plan 1. Near syncope/syncope The patient had episodes of near syncope/syncope at home. Based upon the evaluation thus far there are concerns this was related to hypotension related to decreased intravascular volume bringing out orthostatic type changes. The patient's cardiovascular evaluation thus far with respect to cardiac enzymes have been negative. His cardiac rhythm has remained sinus rhythm. He has undergone volume replacement. He is now undergone repeat diagnostic cardiac catheterization. He continues to demonstrate evidence of underlying CAD as previously noted with his diagonal branch system and his RCA stent being chronically occluded. 2. Hypotension Again there is concern the patient's hypotension may have been related to decreased intravascular volume. Status post volume replacement his blood pressures have improved and/or now become back to his hypertensive state. 3. CAD status post RCA PCI-remote The patient has had previous diagnosis of CAD and underwent RCA PCI in the past. As noted above his RCA PCI is chronically occluded. He has undergone reevaluation with diagnostic cardiac catheterization. His preliminary findings are as noted above. At the present time his case has been discussed with interventional cardiology. Now that he is taking his medications as prescribed he will proceed with an attempt at PCI of the diagonal branching system. 4. Hyperlipidemia He will need to continue risk factor modification and care. 5. Hypertension The patient has a history of hypertension. As his blood pressures have gone from hypotensive to hypertensive his medications are being adjusted. 6. Diabetes mellitus The patient will continue under evaluation care per internal medicine. 7. Acute renal insufficiency The patient's creatinine level was elevated. This may be secondary to his diminished intravascular volume, etc. His renal function has been followed. His creatinine level has improved. 8. Leukocytosis The patient does have a leukocytosis. This may be secondary to his pre-cardiac catheterization medications with corticosteroids. Thus far there is been no definitive evidence of an underlying infectious disease related etiology. This note was generated using a voice recognition system and there may be incorrect words, spelling or punctuation that were not noted when reviewing the office note prior to saving.
--- NOTE | 2019-02-26 09:45 | EKG12_ITS ---
Test Reason : POST PCI Blood Pressure : / mmHG Vent. Rate : 069 BPM Atrial Rate : 069 BPM P-R Int : 164 ms QRS Dur : 090 ms QT Int : 426 ms P-R-T Axes : 039 024 045 degrees QTc Int : 456 ms Normal sinus rhythm Nonspecific T wave abnormality Abnormal ECG Confirmed by EDITH JETER ([id number]), desk editor BAILEY VALLEJO ([id number]) on 03/03/2019 1:43:21 PM Referred By: STEFFANY Confirmed By:MELANIE JETER
--- NOTE | 2019-02-26 09:58 | CL.I_ITS ---
Patient Name: KALYANI LIVINGSTON Study Date: 02/26/2019 Performing: Celia Mcgraw MD Ht: 72.83 inches 185 cm : 1960 Wt: 187.39 lbs 85 kg Age: 58 Gender: male BSA: 2.09 PROCEDURE(S) PERFORMED [id number] W OR WO PTCA, SINGLE CORONARY ARTERY CLINICAL PROFILE AND CO-MORBIDITIES Indications: Suspected CAD Heart Failure: None Stress/Imaging Date: 05/21/2018 Stress Test with SPECT MPI: Positive Angina Classification Anginal Classification w/in 2 Weeks: CCS III CAD Presentations: Other: Chest pain CONCLUSIONS Successful PCI with Drug eluting stent and PTCA to the Diagonal 1 RECOMMENDATIONS Risk factor modification ASA Indefinitley Plavix for at least 12 months Follow up with primary box maker paperboard Routine post interventional care DESCRIPTION OF PROCEDURE The patient arrived to the procedure lab. The risks and benefits of the procedure as well as a full d escription of our services here and current unavailability of surgical backup were fully explained to the patient and/or their significant other prior to the catheterization. The Timeout was completed, verifying the correct patient and procedure. The patient's procedural site was prepped and draped in the usual fashion. Local anesthetic was given subcutaneously to right radial region with Lidocaine 2% Using a modified Seldinger technique,arterial access was obtained via the right radial artery, a 6Fr sheath was inserted. Left Coronary Artery selective angiography was performed in multiple views usin g a 5 Fr. 4.0 [place] catheter. Right Coronary Artery selective angiography was then performed in multi ple views using a 5 Fr. JR 4 catheter.The images were reviewed and options discussed. A decision was then made to proceed with an Intervention, IVUS or other adjunct procedure. XB 3.0 Guide catheter was inserted and engaged into the LCA. [employer] [place] Guide wire was advance d to the 1st Diagonal. Emerge 2.0 x 12 Balloon catheter was inserted. Balloon catheter was advanced a cross lesion in the first diagonal, proximal. Angiogram performed pre balloon dilatation. PTCA balloo n inflated at 8 atms for 15 secs. PTCA balloon inflated at 8 atms for 20 secs. Angiogram performed po st balloon dilatation. PTCA balloon inflated at 8 atms for 10 secs. Synergy 2.25 x [address] ent was inserted. Drug Eluting stent was advanced across the lesion in the first diagonal, proximal. Angiogram performed pre stent deployment. Angiogram performed post stent deployment. The arterial s kisha was pulled and a TR Band was applied for hemostasis INTERVENTION INFORMATION LESION SITE: 1st Diagonal (Proximal) Lesion Complexity: High/C, chronic total occlusion: No, lesion at bifurcation: No, thrombus present: No, lesion length: 11 mm, culprit lesion: Yes, Previously treated lesion: No Pre Stenosis: 90 % Pre intervention BLANCA flow: 3 PROCEDURE: Drug Eluting Stent with pre dilatation. Post Stenosis: 0 % Post intervention BLANCA flow: 3 Lesion Devices: Cordis 6 Fr XB3.0 100cm Guide Catheter [place] .014 [employer] [place] Straight 190cm Anil Sci EMERGE MR 2.00x12 BALLOON Anil Sci Synergy MR REYNA 2.25x12 COMPLICATIONS No Complications PROCEDURE MEDICATIONS Versed 1 mg IV Fentanyl 50 mcg IV Versed 1 mg IV Fentanyl 50 mcg IV Versed 1 mg IV Oxygen: 2 L/min via nasal cannula Heparin diluted in 23cc Heparinized saline. Patient given 10cc IA of this solution. 02/26/2019 08:16: 07 Heparin 6000 unit(s) IV 02/26/2019 09:13:40 Verapamil 2.5mg, Ntg 100mcgs, 2000 units of Heparin diluted in 23cc Heparinized saline. Patient give n 10cc IA of this solution. 02/26/2019 08:16:07 SUMMARY OF HEMODYNAMIC DATA Time AIR REST ECG 08:01:15 AO 132/84 (107) SA 08:19:07 Signed By Celia Mcgraw MD On 02/26/2019 09:57:51 Celia Mcgraw MD
--- NOTE | 2019-02-26 10:14 | CL.D_ITS ---
Patient Name: KALYANI LIVINGSTON Study Date: 02/26/2019 Performing: Kwabena Wilkins MD Ht: 73 inches 185 cm : 1960 Wt: 187.6 lbs 85 kg Age: 58 Gender: male BSA: 2.09 PROCEDURE(S) PERFORMED [id number]/COR [id number] W OR WO PTCA, SINGLE CORONARY ARTERY CLINICAL PROFILE AND INDICATIONS Indications: Suspected CAD Heart Failure: None Stress/Imaging Date: 05/21/2018Stress Test with SPECT MPI: Positive Angina Classification Anginal Classification w/in 2 Weeks: CCS III CAD Presentations: Other: Chest pain CONCLUSIONS [place] Multivessel CAD RECOMMENDATIONS Risk factor modification Medical therapy Referred for immediate PCI DESCRIPTION OF PROCEDURE The patient arrived to the procedure lab. The risks and benefits of the procedure as well as a full d escription of our services here and current unavailability of surgical backup were fully explained to the patient and/or their significant other prior to the catheterization. The Timeout was completed, verifying the correct patient and procedure. The patient's procedural site was prepped and draped in the usual fashion. Local anesthetic was given subcutaneously to right radial region with Lidocaine 2% . Using a modified Seldinger technique, arterial access was obtained via the right radial artery, a 6 Fr sheath was inserted. Left Coronary Artery selective angiography was performed in multiple views u sing a 5 Fr. 4.0 [place] catheter. Right Coronary Artery selective angiography was then performed in mu ltiple views using a 5 Fr. JR 4 catheter.The arterial sheath was pulled and a TR Band was applied for hemostasis CORONARY ANGIOGRAPHY DOMINANCE: Co- Dominant LEFT HEART ASSESSMENT Left Ventricular Ejection Fraction: Not assessed LEFT MAIN: Angiographically normal LEFT ANTERIOR DESCENDING ARTERY: PROX LAD: Eccentric: 25 % Stenosis MID LAD: Mild luminal irregularities, 25 % Stenosis DISTAL LAD: 25 % Stenosis DIAGONAL 1: Proximal - serial 85 % Stenosis CIRCUMFLEX ARTERY: Mild luminal irregularities Left PDA: Proximal - 25 % Stenosis, Left PDA: Mid - 25 % Stenosis RIGHT CORONARY ARTERY: PROX RCA: Eccentric: 25 % Stenosis DISTAL RCA: subtotally occluded, Previously placed stent is occluded COMPLICATIONS No Complications PROCEDURE MEDICATIONS Versed 1 mg IV Fentanyl 50 mcg IV Versed 1 mg IV Fentanyl 50 mcg IV Versed 1 mg IV Oxygen: 2 L/min via nasal cannula Heparin diluted in 23cc Heparinized saline. Patient given 10cc IA of this solution. 02/26/2019 08:16: 07 Heparin 6000 unit(s) IV 02/26/2019 09:13:40 Verapamil 2.5mg, Ntg 100mcgs, 2000 units of Heparin diluted in 23cc Heparinized saline. Patient give n 10cc IA of this solution. 02/26/2019 08:16:07 SUMMARY OF HEMODYNAMIC DATA Time AIR REST ECG 08:01:15 AO 132/84 (107) SA 08:19:07 Signed By Kwabena Wilkins MD On 02/26/2019 10:13:43 Kwabena Wilkins MD
--- NOTE | 2019-02-26 11:13 | NURSING ---
RESUMING CARE OF PATIENT AT 1115 FROM [place]
[2019-02-26] MEDS: Enoxaparin 40 MG/0.4 ML Syringe SC (11:38)
[2019-02-26] MEDS: hydrALAZINE 20 MG/ML Vial 5 MG IV (11:38)
[2019-02-26] MEDS: Insulin Lispro 100 UNIT/ML INSULN.PEN 15 UNIT SC ×2 (11:40→17:07)
[2019-02-26] MEDS: Insulin Lispro 100 UNIT/ML INSULN.PEN SQ ×2 (11:40→17:07)
[2019-02-26 11:50] LABS: Bedside Glucose 159 mg/dL (70-110)
--- NOTE | 2019-02-26 13:54 | CRPHASE1 ---
Patient Communication Former Patient:: Phase II PHII Cardiac Rehab Discussed with Patient:: Yes Guide to Cardiac Rehab Given to Patient:: Yes Cardiac Rehab Facility Choice List Given to Patient:: Yes - [facility] Choice Program [facility] CR PHII:: Communication Given to CR, Refer to [facility] Sessions:: 36 sessions - 2 days/wk, 18 weeks Risk Factors/Lifestyle Smoking Status: Never smoker Second-Hand Smoke:: No - HE USES SMOKELSS TOBACCO CHEWS Hx Hypertension: Yes Hx Diabetes Mellitus Type 2: Yes - UNCONTROLLED Hx Metabolic Disorders: Yes Hx Dyslipidemia: Yes Height: 1.85 m Weight:: 85.2 kg BMI: 24.9 Stress: Long-standing ETOH: No Caffeine: Yes Substance Abuse: No Family History: Diabetes, High Cholesterol, Heart Disease, Hypertension, Pulmonary Disease Past Cardiac Illness: Previous PCI w/Stent Phase I Education Given On:: [place], Nutrition, Antiplatelet medication, CHF, Smoking cessation, Diabetes - Type II Issues Affecting Care:: None Knowledge of Condition:: Yes Hospital Course Hospital Course/Complications:: ABNORMAL STRESS Cardiac Cath Date:: 02/26/19 Medical/Surgical History PA:: Yes Angina:: Yes CAD:: Yes Pulmonary:: Yes Diabetes:: Yes Diabetes Type II:: Yes Hypertension:: Yes Dyslipidemia:: Yes Depression:: Yes Anxiety:: Yes PTCA:: Yes Discharge/Home/Social Eval Discharge Disposition: Home Cardiac Rehabilitation Info Cardiac Rehabilitation Program Information: Cardiac Rehabilitation is important for patients like you who are recovering from a heart problem. Cardiac rehabilitation programs are recognized as integral to the continued care of the patient with coronary heart disease. The cardiac rehabilitation program is designed to optimize a patient's physical, psychological, and social functioning. Health director of critical care work in cardiac rehabilitation programs and assist you with getting the treatments you need to get stronger and healthier - like exercise, healthy eating habits, and medications. Cardiac rehabilitation has been show to help people with heart problems live longer and have better life enjoyment than people who do not go to cardiac rehabilitation. Please contact the Cardiac Rehabilitation Program at [facility] at in two weeks if you have not heard from them.
--- NOTE | 2019-02-26 13:59 | CRPHASE1_ITS ---
Patient Communication Former Patient:: Phase II PHII Cardiac Rehab Discussed with Patient:: Yes Guide to Cardiac Rehab Given to Patient:: Yes Cardiac Rehab Facility Choice List Given to Patient:: Yes - [facility] Choice Program [facility] CR PHII:: Communication Given to CR, Refer to [facility] Sessions:: 36 sessions - 2 days/wk, 18 weeks Risk Factors/Lifestyle Smoking Status: Never smoker Second-Hand Smoke:: No - HE USES SMOKELSS TOBACCO CHEWS Hx Hypertension: Yes Hx Diabetes Mellitus Type 2: Yes - UNCONTROLLED Hx Metabolic Disorders: Yes Hx Dyslipidemia: Yes Height: 1.85 m Weight:: 85.2 kg BMI: 24.9 Stress: Long-standing ETOH: No Caffeine: Yes Substance Abuse: No Family History: Diabetes, High Cholesterol, Heart Disease, Hypertension, Pulmonary Disease Past Cardiac Illness: Previous PCI w/Stent Phase I Education Given On:: [place], Nutrition, Antiplatelet medication, CHF, Smoking cessation, Diabetes - Type II Issues Affecting Care:: None Knowledge of Condition:: Yes Hospital Course Hospital Course/Complications:: ABNORMAL STRESS Cardiac Cath Date:: 02/26/19 Medical/Surgical History CO:: Yes Angina:: Yes CAD:: Yes Pulmonary:: Yes Diabetes:: Yes Diabetes Type II:: Yes Hypertension:: Yes Dyslipidemia:: Yes Depression:: Yes Anxiety:: Yes PTCA:: Yes Discharge/Home/Social Eval Discharge Disposition: Home Cardiac Rehabilitation Info Cardiac Rehabilitation Program Information: Cardiac Rehabilitation is important for patients like you who are recovering from a heart problem. Cardiac rehabilitation programs are recognized as integral to the continued care of the patient with coronary heart disease. The cardiac rehabilitation program is designed to optimize a patient's physical, psychological, and social functioning. Health director critical care work in cardiac rehabilitation programs and assist you with getting the treatments you need to get stronger and healthier - like exercise, healthy eating habits, and medicati ons. Cardiac rehabilitation has been show to help people with heart problems live longer and have better life enjoyment than people who do not go to cardiac rehabilitation. Please contact the Cardiac Rehabilitation Program at [facility] at in two weeks if you have not heard from them.
--- NOTE | 2019-02-26 13:59 | CRPH1.INSTRU ---
General Education CAD and cardiac anatomy and function:: Patient communicates acknowledgment Explanation of diagnoses and procedures:: Patient communicates acknowledgment Sign/Symptoms of NC:: Patient communicates acknowledgment Antiplatelet therapy: Not instructed Proper use of NTG-SL: Not instructed Emergency procedures and activation of EMS: Patient communicates acknowledgment Compliance of all prescribed medications: Not instructed Smoking Patient Nicotine/Smoking Risk Factors Are:: Smokeless tobacco Nicotine/Smoking Response Code:: Patient communicates acknowledgment Dyslipidemia Recommendations Include:: Lipid profile not available Overweight/Obesity Patient Overweight/Obesity Risk Factors Are:: BMI Normal [18-25 & < 65 years old] Overweight/Obesity:: Patient communicates acknowledgment Hypertension Recommendations Include:: Maintain BP <130/85, BP <130/80 if diabetic, DASH dietary guidelines, Decrease/maintain normal body weight, Moderation of ETOH Hypertension:: Patient communicates acknowledgment Heart Disease Patient Heart Disease Risk Factors Are:: Previous cardiac event Heart Disease Response Code:: Patient communicates acknowledgment Diabetes Patient Diabetes Risk Factors Are:: Elevated blood sugars, Post-op hyperglycemia Recommendations Include:: Maintain fasting blood sugars 70-110 md/dL, Maintain HgbA1c of 6% or less, Monitor blood sugar as prescribed, Diabetic dietary guidelines, Decrease/maintain body weight Metabolic Syndrome Patient Metabolic Syndrome Risk Factors Are [3 of 5]:: Fasting blood sugar > 100 mg/dL, Waist circumference > 35 [female] or 40 [male], Hypertension Metabolic Syndrome Response Code:: Patient communicates acknowledgment Sedentary Patient Sedentary Risk Factors Are:: Lack of regular exercise Stress Stress Response Code:: Patient communicates acknowledgment
--- NOTE | 2019-02-26 15:21 | CHAPLAIN ---
Type of Pastoral Visit _x__ Initial Visit ___ Follow-up Visit ___ On-call Visit ___ General Patient Visit ___ Spiritual Assessment ___ Family Conference ___ Bereavement ___ Rapid Response ___ Code Blue ___ Other (describe below) Pastoral Care Referral From _x__ Patient ___ Family ___ Nurse ___ Physician ___ Bmx Rider ___ Ditch Rider ___ Other (describe below) Sacrament/Intervention _x__ Active listening ___ Anointing ___ Caodaism ___ Bereavement ___ Communion ___ Akanksha exploration ___ _x__ Life review _x__ Prayer ___ Reconciliation ___ Sacrament of Sick _x__ Supportive presence ___ Wedding ___ Other (describe below) Pastoral Comments patient apparently has very little family support; spouse or SO is in senior living
[2019-02-26 17:15] LABS: Bedside Glucose 236 mg/dL (70-110)
[2019-02-26] MEDS: Lisinopril 10 MG Tablet PO (21:23)
[2019-02-26] MEDS: Doxepin Hydrochloride 10 MG Capsule 20 MG PO (21:23)
[2019-02-26] MEDS: Carvedilol 25 MG Tablet PO (21:23)
[2019-02-26] MEDS: Atorvastatin Calcium 40 MG Tablet 80 MG PO (21:23)
[2019-02-26 21:31] LABS: Bedside Glucose 90 mg/dL (70-110)
[2019-02-27] VITALS (20 sets, daily range): BP systolic 136–200; BP diastolic 68–109; PULSE 58–84; RESP 14–23; TEMP 36.9–37; O2SAT 92–99
[2019-02-27 03:28] LABS: Absolute Lymphocyte Count 1.56 X10^3/ul (0.83-4.51); Absolute Neutrophil Count 11.5 X10^3/uL (2.0-7.7); Basophil# 0.02 X10^3/uL; Basophil% 0.1 % (0-1); Eosinophil# 0.03 X10^3/uL; Eosinophils% 0.2 % (0-5); Hematocrit 39.5 % (40-54); Hemoglobin 13.3 g/dl (13.0-16.5); Lymphocyte # 1.56 X10^3/ul (4.0); Lymphocyte % 11.1 % (19-41); Mean Corp Hgb Conc 33.7 g/gl (32-36); Mean Corpuscular Hgb 29.7 pg (27.0-32.0); Mean Corpuscular Volume 88.2 fL (80-94); Mean Platelet Vol. 10.7 fl (6.2-12.0); Monocyte# 0.94 X10^3/uL; Monocyte% 6.7 % (0-10); Neutrophil # 11.48 X10^3/uL (2.7-7.7); Neutrophil % 81.6 % (47-70); Platelet Count 209 K/mm3 (150-450); RBC Distribution Width CV 13.7 % (11.6-14.6); RBC Distribution Width SD 43.9 fl (35.1-43.9); Red Blood Count 4.48 M/mm3 (4.6-6.2); White Blood Count 14.1 K/mm3 (4.4-11.0)
[2019-02-27 03:35] LABS: POSITIVE COUNT NO; POSITIVE DIFFERENTIAL NO; POSITIVE MORPHOLOGY NO
[2019-02-27 03:46] LABS: Anion Gap 9 (5-15); BUN 19 mg/dL (7-18); Calcium,Total 8.2 mg/dL (8.5-10.1); Chloride 108 mmol/L (98-107); Creatinine, Serum 1.12 mg/dL (0.70-1.30); EST Glomerular Filtration Rate 72 mL/min (>60); Est Glom Filt Rate - Afr Amer 87 mL/min (>60); Estimated Creatinine Clearance 78.91 ml/min; Glucose 84 mg/dL (74-106); Potassium 3.2 mmol/L (3.5-5.1); Sodium Level 144 mmol/L (136-145)
[2019-02-27] MEDS: 0.9% Normal Saline 1,000 ML 100 ML IV (05:00)
--- NOTE | 2019-02-27 05:55 | EKG12_ITS ---
Test Reason : AM EKG Blood Pressure : / mmHG Vent. Rate : 063 BPM Atrial Rate : 063 BPM P-R Int : 162 ms QRS Dur : 092 ms QT Int : 438 ms P-R-T Axes : 049 035 099 degrees QTc Int : 448 ms Normal sinus rhythm Nonspecific T wave abnormality Abnormal ECG When compared with ECG of 26-FEB-2019 05:06, MANUAL COMPARISON REQUIRED, DATA IS UNCONFIRMED Confirmed by EDITH JETER ([id number]), manager editorial BAILEY VALLEJO ([id number]) on 03/03/2019 1:40:52 PM Referred By: THEE Confirmed By:MELANIE JETER
[2019-02-27 06:55] LABS: Bedside Glucose 67 mg/dL (70-110)
--- NOTE | 2019-02-27 07:51 | PN.CARD_ITS ---
Subjectve: The patient is awake and alert. He states he is feeling better overall. Objective: Vital Signs Temp Pulse Resp BP Pulse Ox 98.4 F 58 L 20 H 159/101 H 92 02/27/19 04:00 02/27/19 06:00 02/27/19 06:00 02/27/19 06:00 02/27/19 06:00 Oxygen Delivery Method Room Air Weight: 187 lb 13.341 oz Body Mass Index (BMI) 24.9 Finger Stick Blood Glucose 145 Orthostatic Vital Signs Start: 02/25/19 16:29 Freq: q24h Status: Active Protocol: Activity Type Activity Date Activity User E-Sign Co-Sign Detail Recorded Client Recorded Date Recorded By Document 02/26/19 03:39 [facility] [id number] 02/26/19 03:41 [facility] 02/26/19 03:39 Orthostatic Vitals Standing -Blood Pressure (90/60-120/80) 176/111 H -Extremity Use Right Arm -Pulse Rate (60-100) 80 Sitting -Blood Pressure (90/60-120/80) 148/111 H -Extremity Use Right Arm -Pulse Rate (60-100) 76 Lying -Blood Pressure (90/60-120/80) 156/101 H -Extremity Use Right Arm -Pulse Rate (60-100) 77 Intake and Output for Last 24 Hours 02/25/19 02/26/19 02/27/19 23:59 23:59 23:59 Intake Total 2324 / 2324 2814 / 2814 1260 / 1260 Output Total 2975 / 2975 650 / 650 Balance 2324 / 2324 -161 / -161 610 / 610 General: Awake, Alert, Oriented x 3, Cooperative, No Acute Distress HEENT: Atraumatic, Normocephalic, PERRL, EOMI, Sclera Non Icteric Oral: Moist Mucosa Neck: Supple, Good ROM, No JVD Lungs: Clear to auscultation Cardiovascular: Regular Rhythm, Normal S1, Normal S2 Abdomen: Bowel Sounds Present, Soft, Non Tender Extremities: No Cyanosis, No Clubbing, No edema Neurological: No Focal Motor or Sensory Deficit Psych/Mental Status: Appropriate 02/27/19 03:20: WBC 14.1 H, RBC 4.48 L, Hgb 13.3, Hct 39.5 L, MCV 88.2, MCH 29.7, MCHC 33.7, RDW 13.7, RDW Differential 43.9, Plt Count 209, MPV 10.7, Immature Gran % (Auto) 0.300, Neut % (Auto) 81.6 H, Lymph % (Auto) 11.1 L, Stanton % (Auto) 6.7, Eos % (Auto) 0.2, Baso % (Auto) 0.1, Absolute Neuts (auto) 11.5 H, Total Counted Not Reportable 02/27/19 03:20: Sodium 144, Potassium 3.2 L, Chloride 108 H, Carbon Dioxide 27.0, Anion Gap 9, BUN 19 H, Creatinine 1.12, Est GFR (MDRD) Af Amer 87, Est GFR (MDRD) Non-Af 72, BUN/Creatinine Ratio 17.0, Glucose 84, Calcium 8.2 L Rhythm: Sinus rhythm EKG: Sinus rhythm; nonspecific T wave abnormality Medical Necessity - Tobacco Use Smoking Status: Never smoker Tobacco Use: Chew Assessment/Plan 1. Near syncope/syncope The patient had episodes of near syncope/syncope at home. Based upon the evaluation thus far there are concerns this was related to hypotension related to decreased intravascular volume bringing out orthostatic type changes. The patient's cardiovascular evaluation thus far with respect to cardiac enzymes have been negative. His cardiac rhythm has remained sinus rhythm. He has undergone volume replacement. He is now undergone repeat diagnostic cardiac catheterization and PCI. He appears to be improved overall. 2. CAD status post RCA PCI-remote The patient has had previous diagnosis of CAD and underwent RCA PCI in the past. As noted above his RCA PCI is chronically occluded. He has undergone reevaluation with diagnostic cardiac catheterization. He is now status post diagonal branch PTCA/REYNA. He appears to be doing well at this time with no acute symptoms or complaints. He will continue risk factor evaluation/medical therapy and care. 3. Hyperlipidemia He will need to continue risk factor modification and care. 4. Hypertension The patient has a history of hypertension. He will need to continue medical management with adjustment as deemed appropriate. 5. Diabetes mellitus The patient will continue under evaluation care per internal medicine. 6. Acute renal insufficiency The patient's creatinine level was elevated. This may be secondary to his diminished intravascular volume, etc. His renal function has been followed. His creatinine level has improved. 7. Leukocytosis The patient does have a leukocytosis. This may be secondary to his pre-cardiac catheterization medications with corticosteroids. Thus far there is been no definitive evidence of an underlying infectious disease related etiology. Overall, from a cardiac standpoint, the patient appears to be improved. He will continue medical management with adjustment as deemed appropriate. He will need continued outpatient cardiovascular follow-up and outpatient cardiac rehabilitation. This note was generated using a voice recognition system and there may be incorrect words, spelling or punctuation that were not noted when reviewing the office note prior to saving.
[2019-02-27] MEDS: Insulin Lispro 100 UNIT/ML INSULN.PEN 15 UNIT SC ×2 (08:17→12:30)
[2019-02-27] MEDS: Aspirin E.C. 81 MG Tablet PO (08:18)
[2019-02-27 08:25] LABS: Bedside Glucose 107 mg/dL (70-110)
[2019-02-27] MEDS: Carvedilol 25 MG Tablet PO (10:02)
[2019-02-27] MEDS: Enoxaparin 40 MG/0.4 ML Syringe SC (10:02)
[2019-02-27] MEDS: Clopidogrel Bisulfate 75 MG Tablet PO (10:03)
[2019-02-27] MEDS: Lisinopril 20 MG Tablet PO (10:04)
[2019-02-27 12:31] LABS: Bedside Glucose 72 mg/dL (70-110)
[2019-02-27] MEDS: amLODIPine 5 MG Tablet PO (13:23)
--- NOTE | 2019-02-27 16:46 | PCM.DC ---
- Discharge Diagnoses Current Active Problems: Current Active and Chronic Problems (Last Updated 02/26/19 @ 16:54 by Shannon Bradley) Atherosclerotic heart disease of [place] coronary artery without angina pectoris (Chronic) S/P coronary artery stent placement (Chronic ~02/26/19) PTCA/REYNA to Diagonal 1 02/26/19 Syncope (Acute) Leukocytosis (Acute) You will use the following diet at home:: Cardiac Your food should be the consistency of: Regular Your liquids should be the consistency of: Regular/Thin Discharge Activity: Return to Normal Activity Call your doctor if your incision/area has: Increased Pain/ Swelling, Increased Redness Call your doctor if you observe: Fever of 101 or Higher, Shortness of breath, Dizziness, Fainting spells, Swelling in the ankles, Chest pain, Increased palpitations (irregular heartbeat) Allergies/Adverse Reactions: Allergies ampicillin Allergy (Verified 02/25/19 08:20) Swelling ibuprofen [From Motrin] Allergy (Verified 02/25/19 08:20) Swelling SEA FOOD Allergy (Uncoded 02/25/19 08:20) Swelling Medications to take at Discharge Doxepin HCl 20 mg PO QHS 09/18/17 Oxycodone HCl/Acetaminophen [Percocet 10-325 mg Tablet] 10 - 325 mg PO Q6H PRN PRN 09/18/17 Aspirin E.C. [Ecotrin] 81 mg PO DAILY@0800 #90 tab 05/21/18 Nitroglycerin (INPATIENT USE) [Nitrostat] 0.4 mg SUBLINGUAL Q5M PRN #10 tab 05/22/18 carvedilol 25 mg tablet 25 mg PO BID 02/14/19 clopidogrel 75 mg tablet 75 mg PO DAILY 02/14/19 furosemide 20 mg tablet 20 mg PO DAILY PRN 02/14/19 insulin detemir (U-100) 100 unit/mL (3 mL) subcutaneous pen 25 unit SC QHS 02/14/19 insulin lispro (U- 100) 100 unit/mL subcutaneous cartridge 15 unit SC TID 02/14/19 ranitidine 150 mg tablet 150 mg PO .COMPLEX #2 tab 02/14/19 Amlodipine [Norvasc] 5 mg PO DAILY #30 tablet 02/27/19 Atorvastatin Calcium [Lipitor] 80 mg PO QHS #30 tablet 02/27/19 Lisinopril [Zestril] 20 mg PO BID #60 tablet 02/27/19 The following prescriptions were given: Amlodipine [Norvasc] 5 mg PO DAILY #30 tablet Atorvastatin Calcium [Lipitor] 80 mg PO QHS #30 tablet Lisinopril [Zestril] 20 mg PO BID #60 tablet Orders to be completed after discharge: Phase II, Outpatient Cardiac Rehab Location: None Selected Primary Care Physician: Rosario Arroyo DO [Primary Care Provider] - Please follow up with your Primary Care Physician in: 3-5 days Test Results: Test results from this visit will be discussed in further detail at your follow-up appointment, if applicable. Please Follow Up With: Kwabena Wilkins MD When: 03/12/2019 @ 2:45 pm
--- NOTE | 2019-02-27 16:49 | PCM.DC.SUM ---
Discharge Date and Diagnosis - Problem List Patient Problems: Active and Suspected Problems (Last Updated 02/26/19 @ 16:54 by Shannon Bradley) Syncope (Acute) Leukocytosis (Acute) Date of Admission: 02/25/19 Date of Discharge: 02/27/19 - Primary Discharge Diagnosis Active and Suspected Problems (Last Updated 02/26/19 @ 16:54 by Shannon Bradley) Syncope (Acute) Leukocytosis (Acute) - Secondary Discharge Diagnosis Chronic Problems (Last Updated 02/26/19 @ 16:54 by Shannon Bradley) Atherosclerotic heart disease of [place] coronary artery without angina pectoris (Chronic) S/P coronary artery stent placement (Chronic ~02/26/19) PTCA/REYNA to Diagonal 1 02/26/19 Coronary artery disease (Chronic) Tobacco chew use (Chronic) PFO (patent foramen ovale) (Chronic) Diabetes (Chronic) HTN (hypertension) (Chronic) Hyperlipidemia (Chronic) Smokeless tobacco use (Chronic) Uncontrolled type 2 diabetes mellitus (Chronic) CAD (coronary artery disease) (Chronic) Acute cerebrovascular accident of cerebellum (Chronic) CVA (cerebral vascular accident) (Chronic) S/P PTCA (percutaneous transluminal coronary angioplasty) (Chronic) Noncompliance with medication regimen (Chronic) Hospital Course and Treatment Imaging Results: CT Brain: IMPRESSION: Since prior study, there is evidence of decreased attenuation in the right cerebellar hemisphere suggestive of a encephalomalacia. Correlation with a CT scan following IV contrast is recommended for further evaluation. CXR: IMPRESSION: Normal x-ray examination of the chest. Consults: Cardiology Operations: None Procedures: 2-D Echocardiogram - Interpretation Summary Mild segmental systolic dysfunction (see wall motion). The estimated ejection fraction is 50 %. The left atrium is moderately enlarged. There is mild mitral annular calcification. Extension of the mitral annular calcification onto the posterior mitral valve leaflet. Mild-Moderate (1-2+) mitral valve insufficiency. Trivial tricuspid valve insufficiency. Right ventricular systolic pressure estimated to be 45 mmHg. There is evidence of diastolic dysfunction., Cardiac catheterization - CONCLUSIONS Successful PCI with Drug eluting stent and PTCA to the Diagonal 1 RECOMMENDATIONS Risk factor modification ASA Indefinitley Plavix for at least 12 months Follow up with primary solder cream maker Routine post interventional care Summary of Care Provided: Per HPI: The patient is a 58 year old M with PMH as below who presents with syncope today. He states that he was getting up getting ready to come in for his cath when he walked around the side of his bed and he got lightheaded and dizzy and almost blacked out and fell down to the ground. He was able to get himself up and get ready. And then as he was leaving the house he was on the third step coming down the stairs and he fell down outside. At that point he does state that he blacked out but only for a little bit. The person is coming to get him to bring him for the cath was there and witnessed the fall. He denies any recent illnesses, and has not had any fevers or chills. He denies any skin changes or shortness of breath. In the ER he was found to have a slight leukocytosis as well as an RASHAWN. He is dehydrated and was given IV fluid boluses. Initial troponin was negative and a CT scan of his head was unremarkable for bleed. Currently is denying any chest pain and after IV fluids were provided stated that he felt great. Hospital Course: 1. Syncope/CAD/HTN/HLD/FPJ-62-lgtb-old male who has known coronary artery disease from a previous cath however at that time he refused to stent. He stated that he did not want to take the medications for a year, however a few months ago he presented saying that he would like to go ahead with the cath and after assuring that he would be on the medications he was supposed undergo a cardiac cath on 02/25, however he developed syncope and came into the ER. It was felt at this time that it was due to vasovagal from dehydration. He does take Lasix as needed and it is possible that he was not hydrating and took too much Lasix. He had an RASHAWN on admission which resolved with fluids, and the administration of fluids resolved his symptoms by the day of admission. He underwent cardiac cath the next day and had a stent placed to the first diagonal. He has been doing okay since then. On the day of discharge his blood pressure was elevated and his blood pressure medications were modified. His lisinopril was increased from 10 mg twice daily to 20 mg twice daily, he was maintained on his Coreg of 25 mg p.o. twice daily, he was continued on his Lasix 20 mg daily as needed, and his Imdur was discontinued and Norvasc 5 mg was started. His blood pressures been in the 150s all day and he is stable for discharge with outpatient follow-up. Also his Lipitor was increased from 40 mg daily to 80 mg. He will need to see his primary care physician as well as cardiology at his previously scheduled appointment. This plan was discussed with him and he was in agreement. 2. Leukocytosis-chest x-ray on admission was negative as well as head to toe skin exam and a UA. His white blood cell count elroy to 14.1, but part of this is due to the fact that he was on steroids prior to the procedure and could also be reactive from his syncope. He was afebrile and therefore was not started on any antibiotics. 3. His other medical diagnoses were evaluated and his home medications were continued where appropriate Patient Problems: Active and Suspected Problems (Last Updated 02/26/19 @ 16:54 by Shannon Bradley) Syncope (Acute) Leukocytosis (Acute) Objective: General: Alert, Oriented x3, Cooperative, No apparent distress HEENT: Atraumatic, PERRLA, EOMI, Normocephalic Oral: Moist Mucosa Neck: Supple, No JVD Lungs: Clear to auscultation, Normal air movement, No rhonchi, No wheeze, No rales, Diminished Cardiovascular: Regular rate, Regular Rhythm, Normal S1, Normal S2, No murmurs Abdomen: Soft, Non Tender, Non-Distended, No Hepato-splenomegaly Extremities: No edema, Capillary Refill Less than 3 Seconds Skin: No rashes, No breakdown Neurological: Neuro grossly intact, Sensory exam intact to light touch and pain Psych/Mental Status: Normal Affect, Appropriate - Physical Exam Vital Signs Temp Pulse Resp BP Pulse Ox 98.6 F 70 18 152/93 H 97 02/27/19 12:00 02/27/19 15:00 02/27/19 15:00 02/27/19 15:00 02/27/19 15:00 Oxygen Delivery Method Room Air Weight: 187 lb 13.341 oz Body Mass Index (BMI) 24.9 Finger Stick Blood Glucose 145 Orthostatic Vital Signs Start: 02/25/19 16:29 Freq: q24h Status: Active Protocol: Activity Type Activity Date Activity User E-Sign Co-Sign Detail Recorded Client Recorded Date Recorded By Document 02/26/19 03:39 [facility] [id number] 02/26/19 03:41 [facility] 06/12/19 03:39 Orthostatic Vitals Standing -Blood Pressure (90/60-120/80) 176/111 H -Extremity Use Right Arm -Pulse Rate (60-100) 80 Sitting -Blood Pressure (90/60-120/80) 148/111 H -Extremity Use Right Arm -Pulse Rate (60-100) 76 Lying -Blood Pressure (90/60-120/80) 156/101 H -Extremity Use Right Arm -Pulse Rate (60-100) 77 Intake and Output for Last 24 Hours 02/25/19 02/26/19 02/27/19 23:59 23:59 23:59 Intake Total 2324 / 2324 2814 / 2814 2576 / 2576 Output Total 2975 / 2975 1350 / 1350 Balance 2324 / 2324 -161 / -161 1226 / 1226 Laboratory Tests Past 24 Hrs 02/27/19 02/27/19 03:20 03:20 WBC 14.1 H RBC 4.48 L Hgb 13.3 Hct 39.5 L MCV 88.2 MCH 29.7 MCHC 33.7 RDW 13.7 RDW Differential 43.9 Plt Count 209 MPV 10.7 Immature Gran % (Auto) 0.300 Neut % (Auto) 81.6 H Lymph % (Auto) 11.1 L [place] % (Auto) 6.7 Eos % (Auto) 0.2 Baso % (Auto) 0.1 Absolute Neuts (auto) 11.5 H Absolute Lymphs (auto) 1.56 Total Counted Not Reportable Sodium 144 Potassium 3.2 L Chloride 108 H Carbon Dioxide 27.0 Anion Gap 9 BUN 19 H Creatinine 1.12 Estim Creat Clear Calc 78.91 Est GFR (MDRD) Af Amer 87 Est GFR (MDRD) Non-Af 72 BUN/Creatinine Ratio 17.0 Glucose 84 Calcium 8.2 L POC Glucose 02/27/19 02/27/19 02/27/19 12:26 08:13 06:48 POC Glucose 72 107 67 L 02/26/19 02/26/19 21:21 17:05 POC Glucose 90 236 H Discharge Activity: Return to Normal Activity Call your doctor if your incision/area has: Increased Pain/ Swelling, Increased Redness Call your doctor if you observe: Fever of 101 or Higher, Shortness of breath, Dizziness, Fainting spells, Swelling in the ankles, Chest pain, Increased palpitations (irregular heartbeat) Home Medications: Medications to take at Discharge Doxepin HCl 20 mg PO QHS 09/18/17 Oxycodone HCl/Acetaminophen [Percocet 10-325 mg Tablet] 10 - 325 mg PO Q6H PRN PRN 09/18/17 Aspirin E.C. [Ecotrin] 81 mg PO DAILY@0800 #90 tab 05/21/18 Nitroglycerin (INPATIENT USE) [Nitrostat] 0.4 mg SUBLINGUAL Q5M PRN #10 tab 05/22/18 carvedilol 25 mg tablet 25 mg PO BID 02/14/19 clopidogrel 75 mg tablet 75 mg PO DAILY 02/14/19 furosemide 20 mg tablet 20 mg PO DAILY PRN 02/14/19 insulin detemir (U-100) 100 unit/mL (3 mL) subcutaneous pen 25 unit SC QHS 02/14/19 insulin lispro (U- 100) 100 unit/mL subcutaneous cartridge 15 unit SC TID 02/14/19 ranitidine 150 mg tablet 150 mg PO .COMPLEX #2 tab 02/14/19 Amlodipine [Norvasc] 5 mg PO DAILY #30 tablet 02/27/19 Atorvastatin Calcium [Lipitor] 80 mg PO QHS #30 tablet 02/27/19 Lisinopril [Zestril] 20 mg PO BID #60 tablet 02/27/19 Following Prescrptions Were Given to Patient: Amlodipine [Norvasc] 5 mg PO DAILY #30 tablet Atorvastatin Calcium [Lipitor] 80 mg PO QHS #30 tablet Lisinopril [Zestril] 20 mg PO BID #60 tablet Other Amb Orders: Phase II, Outpatient Cardiac Rehab Location: None Selected Primary Care Physician: Rosario Arroyo DO [Primary Care Provider] - Please follow up with your Primary Care Physician in: 3-5 days Please Follow Up With: Kwabena Wilkins MD When: 03/12/2019 @ 2:45 pm Disposition: Home Minutes spent on discharge:: 35 Patient Condition:: Stable Medical Necessity - Tobacco Use Smoking Status: Never smoker Tobacco Use: Chew Meaningful Use Info Meaningful Use Diagnoses (Choose all that apply): None applicable Code Visit OBSV E&M: 81310 Observation care discharge
[2019-02-27 17:11] LABS: Bedside Glucose 62 mg/dL (70-110)
== END 2019-02-27 18:20 | disposition home or self-care (01) ==
LOC: ED 09:02 → PCU 13:22 → ICU 02-26 16:57
PROVIDERS: Internal Medicine Cardiovascular Disease; Admitting Provider Family Medicine; Emergency Provider Emergency Medicine; Family Provider Family Medicine; PCP Family Medicine; Visit Provider Family Medicine
DX: R55 Syncope and collapse (principal); D72.829 Elevated white blood cell count, unspecified; I25.10 Atherosclerotic heart disease of native coronary artery without angina pectoris; I10 Essential (primary) hypertension; I69.351 Hemiplegia and hemiparesis following cerebral infarction affecting right dominant side; E78.5 Hyperlipidemia, unspecified; F17.220 Nicotine dependence, chewing tobacco, uncomplicated; E11.65 Type 2 diabetes mellitus with hyperglycemia; N17.9 Acute kidney failure, unspecified; F41.9 Anxiety disorder, unspecified; F32.9 Major depressive disorder, single episode, unspecified; R94.39 Abnormal result of other cardiovascular function study; Z79.82 Long term (current) use of aspirin; Z79.02 Long term (current) use of antithrombotics/antiplatelets; Z79.4 Long term (current) use of insulin; Z79.899 Other long term (current) drug therapy; Q21.1 Atrial septal defect
CPT/HCPCS: 36415; 70450; 71045; 80048; 80320; 81001; 82962; 84484; 85025; 85610; 85730; 92928; 93005; 93306; 93454; 96361; 96372; 96374; 97162; 97166; 97530; 97802; 99152; 99153; 99218; 99285; J7030; Q9967; A4216; C1725; C1769; C1874; C1887; C1894; C9600; G0378; G0480

== ENCOUNTER → 2019-02-25 09:30 | Outpatient (CLI) | payer MEDICARE, SELFPAY ==
--- NOTE | 2019-02-14 05:06 | HP_ITS ---
HPI HPI History of Present Illness Surgical H&P: Yes Details: Jerome Anna is a 58 year old male who presents today for a cardiovascular outpatient follow-up. He is a previous history of coronary artery disease, PCI, heart attack, CVA, syncope, to RCA hypertension, hyperlipidemia, and hyperglycemia. He states left arm pain that comes and goes. This wakes him up from sleep. He states this can occur during the day as well at rest. This has been ongoing for the last 6 months. This is not worsening. He denies chest pain. He denies SOB, diaphoresis, or nausea. He denies such pain previously. He states lightheadedness, dizziness, and pre-syncope when going from a sitting to standing position. He states his appetite has been reduced for months. He denies edema or claudication. He denies orthopnea, PND, blood in urine, blood in stool, or myalgia. He states his less energy than usual. Intake Vital Signs 02/14/19 Height 6 ft 1 in 02/14/19 Weight: 191 lb 02/14/19 Body Mass Index (BMI) 25.2 02/14/19 Blood Pressure 194/103 H 02/14/19 Blood Pressure Location Lt brachial 02/14/19 Blood Pressure Position Sitting 02/14/19 Respiratory Rate 18 02/14/19 Pulse Rate 74 02/14/19 Pulse Source Monitor 02/14/19 Pulse Ox 9 Intake Visit Reasons: Coronary artery disease Community Advocate Required: No Accompanied by: none Is patient in pain?: No Allergies ampicillin Allergy (Verified 02/14/19 14:14) Swelling ibuprofen [From Motrin] Allergy (Verified 02/14/19 14:14) Swelling SEA FOOD Allergy (Uncoded 07/03/18 18:07) Swelling Medications Doxepin HCl 20 mg PO QHS 09/18/17 [History Confirmed 02/14/19] Oxycodone HCl/Acetaminophen [Percocet 10-325 mg Tablet] 10 - 325 mg PO Q6H PRN PRN 09/18/17 [History Confirmed 02/14/19] Aspirin E.C. [Ecotrin] 81 mg PO DAILY@0800 #90 tab 05/21/18 [Rx Confirmed 02/14/19] Isosorbide Mononitrate [Imdur] 30 mg PO DAILY #30 tab 05/22/18 [Rx Confirmed 02/14/19] Nitroglycerin (INPATIENT USE) [Nitrostat] 0.4 mg SUBLINGUAL Q5M PRN #10 tab 05/22/18 [Rx Confirmed 02/14/19] atorvastatin 40 mg tablet 40 mg PO DAILY 02/14/19 [History Confirmed 02/14/19] carvedilol 25 mg tablet 25 mg PO BID 02/14/19 [History Confirmed 02/14/19] clopidogrel 75 mg tablet 75 mg PO DAILY 02/14/19 [History Confirmed 02/14/19] diphenhydramine 25 mg capsule 25 mg PO .COMPLEX #4 cap 02/14/19 [Rx] furosemide 20 mg tablet 20 mg PO DAILY PRN 02/14/19 [History Confirmed 02/14/19] insulin detemir (U-100) 100 unit/mL (3 mL) subcutaneous pen 25 unit SC QHS 02/14/19 [History Confirmed 02/14/19] insulin lispro (U- 100) 100 unit/mL subcutaneous cartridge 15 unit SC TID 02/14/19 [History Confirmed 02/14/19] lisinopril 10 mg tablet 10 mg PO BID tab 02/14/19 [History Confirmed 02/14/19] prednisone 20 mg tablet 20 mg PO .COMPLEX #9 tab 02/14/19 [Rx] ranitidine 150 mg tablet 150 mg PO .COMPLEX #2 tab 02/14/19 [Rx] PFSH Medical History Chest pain at rest (Acute) Tobacco chew use (Chronic) RASHAWN (acute kidney injury) (Acute) Chest pain (Acute) Abnormal stress test (Acute) PFO (patent foramen ovale) (Chronic) Diabetes (Chronic) HTN (hypertension) (Chronic) Hyperlipidemia (Chronic) Smokeless tobacco use (Chronic) Uncontrolled type 2 diabetes mellitus (Chronic) CAD (coronary artery disease) (Chronic) Acute cerebrovascular accident of cerebellum (Chronic) CVA (cerebral vascular accident) (Chronic) Noncompliance with medication regimen (Chronic) Surgical History S/P PTCA (percutaneous transluminal coronary angioplasty) (Chronic) Social History Smoking Status: Current every day smoker ROS Const Const: Positive for fatigue; negative for weakness, body ache, fever(s) or chills ENT ENT: Positive for dizziness Cardio Chest Pain: No Palpitations: No Edema: None Muscle aches with walking: None Resp Respiratory: Negative for SOB with activity, SOB at rest, SOB orthopnea\SOB lying down or paroxysmal nocturnal dyspnea GI GI: Negative nausea, vomiting blood/hematemesis, bright, red blood in stools or black,tarry stools : Negative for hematuria or frequent nighttime urination/ nocturia Musc Musc: Positive for muscle aches/ myalgia (Left arm and shoulder) Skin Skin: Negative non-healing lesions or rash Neuro Neuro: Positive for dizziness, lightheadedness and near syncope; negative for syncope, orthostatic symptoms or weakness Endo Endo: Positive for fatigue Allergy Allergy/Immunology: Negative for rash Cardiology Exam Const Appearance: cooperative, healthy appearing, comfortable and no acute distress Nutritional Appearance: average body habitus and well nourished Orientation: alert, awake and oriented x3 Head Head: normal to inspection Ears: hearing grossly normal bilaterally Nose: external nose normal Face and Sinus: face symmetric Mouth: oral mucosae normal Eyes General: appearance normal, both eyes and all related structures Eyelids: eyelids normal EOM: EOM intact bilaterally Neck Neck: normal visual inspection and no JVD Carotids: normal carotid upstroke Chest Chest inspection: normal inspection of the chest, symmetric chest movement and normal respiratory effort; negative cough Auscultation: Bilateral: Clear to Auscultation Cardio Rate: regular rate Rhythm: regular rhythm Heart sounds: S1 normal and S2 normal; negative rub, gallop or murmur GI GI: normal to inspection Neuro General: alert, awake, oriented x3 and CN's II-XI intact bilaterally Skin Skin: no rashes or lesions noted Extremities Pulses: Normal: Right Posterior Tibial Pulse, Left Posterior Tibial Pulse, Right Radial Pulse, Left Radial Pulse Lower Extremity Edema: None: Bilateral Psych Psychological: normal affect Assessment & Plan 1. Coronary artery disease involving [place] coronary artery of [place] heart without angina pectoris I25.10 Plan Patient was last evaluated in May 2018 with a heart catheterization that showed proximal diagonal 1 with 85% stenosis. He did not undergo intervention due to concerns in regards to noncompliance with aspirin and Plavix therapy. Patient since then has been on having ongoing left arm discomfort. He was evaluated by orthopedics who concern for cardiac etiology. He underwent a stress echocardiogram on 01/14/2019. This was considered to be abnormal. Patient states that he is willing to cooperate in terms of consistent medication such as aspirin and Plavix therapy. He will be confirmed with Dr. Moodispaw in regards to repeat heart catheterization and possible stenting. Patient was extensively educated regarding the importance of Plavix and aspirin therapy for at least one year. He acknowledged understanding. His EKG today in office shows sinus rhythm without any acute ST changes. Orders Orders: 12 Lead EKG performed by BMS Today Basic Metabolic Profile (BMP) Today Partial Thromboplast Time Today Prothrombin Time w/INR Today CBC W/Diff, Automated Today Chest PA and Lateral Today 2. Essential hypertension I10 Plan Patient's blood pressure is well-controlled. We will continue to monitor. We will not make any medication regimen changes. 3. Pure hypercholesterolemia E78.00 Plan He will continue the current statin medication. 4. Type 2 diabetes mellitus with complication, with long-term current use of insulin E11.8 Plan He is reminded of the importance of diabetic control in relation to cardiovascular health. Plan Detail Other Orders Orders: 12 Lead EKG performed by BMS Today R94.39, Z95.5 Basic Metabolic Profile (BMP) Today R94.39, Z95.5 Partial Thromboplast Time Today R07.9, R94.39, Z95.5 Prothrombin Time w/INR Today R94.39, Z95.5 CBC W/Diff, Automated Today R94.39, Z95.5 Chest PA and Lateral Today R94.39, Z95.5 Other Medications New: insulin lispro (U- (Humalog U-) 15 units subcut TID insulin detemir (U-100) (Levemir FlexTouch U-100 Insulin) 25 units subcut QHS Additional Comments Thank you for allowing us to participate in the patient's plan of care, if you have any questions please do not hesitate to call. This note was generated using a voice recognition system and there may be incorrect words, spelling, or punctuation that were not noted upon reviewing the office note prior to saving. Coding Level of Care Code Off vis,est,level 4 Diagnoses Coronary artery disease involving [place] coronary artery of [place] heart without angina pectoris I25.10 ??Coronary Disease-Associated Artery/Lesion type: [place] artery ??[place] vs. transplanted heart: [place] heart ??Associated angina: without angina Essential hypertension I10 ??Hypertension type: essential hypertension Pure hypercholesterolemia E78.00 ??Hyperlipidemia type: pure hypercholesterolemia Type 2 diabetes mellitus with complication, with long-term current use of insulin E11.8 ??Diabetes mellitus type: type 2 ??Diabetes mellitus complication status: with unspecified complications ??Diabetes mellitus group home insulin use: with group home use Coding Level of Care Code Off vis,est,level 4 Diagnoses Coronary artery disease involving [place] coronary artery of [place] heart without angina pectoris I25.10 ??Coronary Disease-Associated Artery/Lesion type: [place] artery ??[place] vs. 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 Supplemental Info Supplemental Information Heart Cathertization from 05/21/2018: CORONARY ANGIOGRAPHY DOMINANCE: Co- Dominant LEFT HEART ASSESSMENT Left Ventricular Ejection Fraction: by LV Gram 50 % Inferior Basal Hypokinesis Elevated Left Ventricular End Diastolic Pressure LVEDP: 36 mmHg LEFT MAIN: Angiographically normal LEFT ANTERIOR DESCENDING ARTERY: PROX LAD: Eccentric: 25 % Stenosis MID LAD: Mild luminal irregularities DIAGONAL 1: Proximal - serial 85 % Stenosis CIRCUMFLEX ARTERY: Mild luminal irregularities RIGHT CORONARY ARTERY: DISTAL RCA: subtotally occluded, Previously placed stent is occluded VALVE FINDINGS: Normal Aortic Valve function Normal Mitral Valve function AORTIC ROOT: Angiographically normal Diagnostics Electrocardiogram 02/14/19 Stress Echocardiogram 01/14/19 Chest X-Ray 07/03/18 02/14/19 1707 <Electronically signed by Babar ZAMBRANO> Date Babar ZAMBRANO I have examined the patient the following changes are noted: Please see [facility] cardiovascular consultation dated 02-25-19.
[2019-02-14 14:14] VITALS: BMI 25.2
--- NOTE | 2019-02-21 10:58 | RAD_ITS ---
STUDY: X-RAY CHEST REASON FOR EXAM: Male, 58 years old. Preprocedure evaluation. TECHNIQUE: PA and lateral views of the chest. COMPARISON: 07/03/2018. FINDINGS: The lungs are clear and expanded. There is no demonstrated pleural abnormality. Normal size heart. Normal mediastinum and gilbert. Normal visualized pulmonary arteries. Normal visualized aortic arch and descending thoracic aorta. There is mild dextro scoliosis of the thoracic spine probably positional. Normal visualized ribs, clavicles, and shoulders. There is no demonstrated abnormality of the visualized soft tissue structures of the upper abdomen. RAD/Chest PA and Lateral IMPRESSION: No active pulmonary disease. Electronically Signed: Carmelo Wallis MD at 11:00 EDT Tel , Service support ,
[2019-02-21 12:07] LABS: Absolute Lymphocyte Count 1.27 X10^3/ul (0.83-4.51); Absolute Neutrophil Count 4.7 X10^3/uL (2.0-7.7); Basophil# 0.03 X10^3/uL; Basophil% 0.5 % (0-1); Eosinophil# 0.13 X10^3/uL; Hematocrit 44.9 % (40-54); Hemoglobin 14.8 g/dl (13.0-16.5); Lymphocyte # 1.27 X10^3/ul (4.0); Lymphocyte % 19.4 % (19-41); Mean Corpuscular Hgb 29.2 pg (27.0-32.0); Mean Corpuscular Volume 88.7 fL (80-94); Mean Platelet Vol. 11.4 fl (6.2-12.0); Monocyte# 0.43 X10^3/uL; Monocyte% 6.6 % (0-10); Neutrophil # 4.66 X10^3/uL (2.7-7.7); Neutrophil % 71.2 % (47-70); Platelet Count 207 K/mm3 (150-450); RBC Distribution Width CV 13.7 % (11.6-14.6); RBC Distribution Width SD 43.5 fl (35.1-43.9); Red Blood Count 5.06 M/mm3 (4.6-6.2); White Blood Count 6.5 K/mm3 (4.4-11.0)
[2019-02-21 12:08] LABS: POSITIVE COUNT NO; POSITIVE DIFFERENTIAL NO; POSITIVE MORPHOLOGY NO
[2019-02-21 12:20] LABS: International Normalized Ratio 1.1; Prothrombin Time (Protime)PT. 13.9 SECONDS (11.7-14.9)
[2019-02-21 12:21] LABS: Partial Thromboplast Time 29.7 Seconds (24.1-36.2)
[2019-02-21 12:31] LABS: Anion Gap 7 (5-15); BUN 15 mg/dL (7-18); BUN/Creat Ratio 13.2 RATIO (10-20); Calcium,Total 8.5 mg/dL (8.5-10.1); Chloride 104 mmol/L (98-107); Creatinine, Serum 1.14 mg/dL (0.70-1.30); EST Glomerular Filtration Rate 70 mL/min (>60); Est Glom Filt Rate - Afr Amer 85 mL/min (>60); Glucose 125 mg/dL (74-106); Potassium 4.1 mmol/L (3.5-5.1); Sodium Level 141 mmol/L (136-145)
[2019-02-24 14:25] VITALS: BMI 25.2
== END ==
PROVIDERS: Nurse Practitioner Family; Family Provider Family Medicine; PCP Family Medicine; Referring Provider Internal Medicine Cardiovascular Disease; Visit Provider Internal Medicine Cardiovascular Disease
DX: I25.10 Atherosclerotic heart disease of native coronary artery without angina pectoris (principal); R94.39 Abnormal result of other cardiovascular function study; R07.9 Chest pain, unspecified; Z95.5 Presence of coronary angioplasty implant and graft
CPT/HCPCS: 36415; 71046; 80048; 85025; 85610; 85730

== ENCOUNTER 2019-03-28 16:52 | Observation (INO) | payer MEDICARE, SELFPAY ==
[2019-02-26 13:57] VITALS: BMI 24.9
[2019-03-12 14:17] VITALS: BMI 24.3
[2019-03-28] VITALS (8 sets, daily range): BP systolic 77–130; BP diastolic 59–84; PULSE 62–78; RESP 12–16; TEMP 36.6–36.7; O2SAT 93–97; BMI 23.5; BMI 23.4
--- NOTE | 2019-03-28 17:26 | EKG12_ITS ---
Test Reason : Blood Pressure : / mmHG Vent. Rate : 066 BPM Atrial Rate : 066 BPM P-R Int : 194 ms QRS Dur : 092 ms QT Int : 420 ms P-R-T Axes : 047 061 075 degrees QTc Int : 440 ms Normal sinus rhythm Nonspecific T wave abnormality Abnormal ECG Confirmed by JOELLE GAXIOLA, AMRITA ([id number]), acquisition editor BAILEY VALLEJO ([id number]) on 04/01/2019 2:17:52 PM Referred By: Kwabena Wilkins Confirmed By:AMRITA LAI MD
--- NOTE | 2019-03-28 17:27 | ED.DCSUM_ITS ---
- ER Visit Summary Date of Service: 03/28/19 Chief Complaint: Nausea vomiting and now lightheaded. History of Present Illness: The patient is a 58 M history of prior stroke prior AK with cardiac stents. Patient states he is an insulin-dependent diabetic and is also treated for hypertension. States 2 days ago he started having nausea and vomiting. No diarrhea. No fever. Denies abdominal pain or bloating. And states he began feeling lightheaded he is Very little down the last several days. Denies any melena or hematemesis. States his been sick like this before. Physical Examination: Middle-aged male initial blood pressure 77/59. He is afebrile. His pulse ox is 90% on room air no hypoxia. He does look dehydrated. H EENT exam times members. reactive light. No signs of traumaor scalp. Nontender. Neck nontender no meningismus. Lungs clear to auscultation bilaterally. Heart regular rhythm rate about 60 no murmur. Chest are nontender. Abdomen soft and nontender. Normal bowel sounds no peritoneal signs. Nondistended. No signs of obstruction, hernia or mass. No right upper or right lower quadrant tenderness. Patient moving all 4 extremities are neurovascular intact. No edema. Back exam nontender. Skin unremarkable. Neurologically he is awake alert and answers questions. No focal motor deficits. Test Results: CBC showed hemoglobin 11.8. Previously was 13. Hematocrit 35. Platelets of 164. No bands. Normal white count. Electrolytes unremarkable except glucose 192. BUN 74 creatinine 2.97 consistent with severe dehydration and prerenal azotemia. Last creatinine was 1. PT OT INR normal. Troponin elevated 0.192. Lactate 0.4. EKG sinus rhythm rate of 66 no acute signs of abnormality. No acute signs of AK or ischemia. No old EKG available for comparison. . I thought that was erroneous. I did check a rectal and there was no black stool or blood. He has not been throwing up any blood. It was rechecked and I think the first one was erroneous drawn above the IV site. Emergency Department Course and Treatment: Patient nausea and vomiting with hypotension. Treated with 2 L of fluid. IV Zofran. And work-up being obtained. Treatment Plan: Repeat exam patient is doing very well at 1940 p.m. Feels much better. His blood pressure currently is 120s over 60s. He looks and feels much better. His abdomen is benign. Due to his severe dehydration, hypotension and acute kidney injury I feel he needs to be admitted. I discussed this with the hospitalist on-call and will put him in the PCU. Clinically he is much improved from his initial presentation. Disposition: Admission Impression: Acute nausea and vomiting Acute hypotension from Severe dehydration Acute kidney injury Abnormal troponin without chest pain or signs of acute ischemia. History of insulin-dependent diabetes History of CAD with cardiac stents This note was generated with [employer] dictation software. It may contain incorrect words, spelling, and punctuation that were not noted in review of the chart prior to signing ED Disposition - Plan for ED Patient: Referrals: Rosario Arroyo DO [Primary Care Provider] -
[2019-03-28] MEDS: 0.9% Normal Saline 1,000 ML 1000 ML IV ×2 (17:39→17:47)
[2019-03-28] MEDS: Ondansetron 4 MG/2 ML Vial IV (17:39)
[2019-03-28 18:05] LABS: Anion Gap 8 (5-15); BUN 74 mg/dL (7-18); BUN/Creat Ratio 24.9 RATIO (10-20); Calcium,Total 8.3 mg/dL (8.5-10.1); Chloride 105 mmol/L (98-107); Creatinine, Serum 2.97 mg/dL (0.70-1.30); EST Glomerular Filtration Rate 23 mL/min (>60); Est Glom Filt Rate - Afr Amer 28 mL/min (>60); Estimated Creatinine Clearance 30.64 ml/min; Glucose 192 mg/dL (74-106); Lactic Acid 0.4 mmol/L (0.4-2.0); Potassium 4.5 mmol/L (3.5-5.1); Sodium Level 135 mmol/L (136-145)
--- NOTE | 2019-03-28 18:07 | ED.RN ---
[facility] 4.[address] LAB. DR SALDAÑA AWARE
[2019-03-28 18:22] LABS: Hematocrit 35.8 % (40-54); Hemoglobin 11.8 g/dl (13.0-16.5); Mean Corpuscular Hgb 29.4 pg (27.0-32.0); Mean Corpuscular Volume 89.3 fL (80-94); Mean Platelet Vol. 11.7 fl (6.2-12.0); Platelet Count 164 K/mm3 (150-450); RBC Distribution Width CV 13.4 % (11.6-14.6); RBC Distribution Width SD 42.9 fl (35.1-43.9); Red Blood Count 4.01 M/mm3 (4.6-6.2); White Blood Count 7.9 K/mm3 (4.4-11.0)
[2019-03-28 18:26] LABS: Scan Indicated on CBC? Y/N NO
[2019-03-28 19:05] LABS: International Normalized Ratio 1.2; Prothrombin Time (Protime)PT. 14.7 SECONDS (11.7-14.9)
[2019-03-28 19:06] LABS: Partial Thromboplast Time 27.5 Seconds (24.1-36.2)
--- NOTE | 2019-03-28 19:34 | CM.ED ---
Social Work Consult: Discharge planning/resources Informant: RN Met with patient in room. Patient stating to live alone in a 2-story home with a 1st floor set up. Patient stating to be independent with all ADL's. Patient reporting to currently walk with the aide of a walker and denies having any medical alert system. Patient stating to receive $192/monthly for food stamps and to have a cleaning lady that comes that patient pays out of pocket for. Patient denies any needs within the community or concerns with returning to home. Patient stating to have neighbors and friends for support. Patient does not drive. Patient brother provides transportation for patient to doctor appointments and grocery shopping. Patient stating to be on disability for the past 4-5 years. Patient with limited expression during interaction with this social services designee. Patient declining any further services reporting to have no needs. Patient plans to return to home, if patient is medically cleared. Sheba ODELL, JACKY
--- NOTE | 2019-03-28 19:50 | PCM.HP.STD ---
Problem List (1) Essential hypertension Status: Chronic (2) S/P coronary artery stent placement Status: Chronic Comment: PTCA/REYNA to Diagonal 1 02/26/19 (3) Hypotension Status: Acute Qualifiers: Hypotension type: unspecified hypotension type Qualified Code(s): I95.9 - Hypotension, unspecified (4) RASHAWN (acute kidney injury) Status: Acute (5) Uncontrolled type 2 diabetes mellitus Status: Chronic Qualifiers: Coma presence: without coma History of Present Illness Date of Admission: 03/28/19 Chief Complaint: Nausea, vomiting - 2 days, presyncope - 1 day The patient is a 58 year old M with past medical history of CAD status post recent stent, history of syncope, hypertension, hyperlipidemia who was recently admitted and discharged on 02/27/19 with syncope secondary to acute kidney injury. Patient underwent cardiac cath in that admission and had a stent placed to his first diagonal. He had followed up with cardiology on discharge with no new complaints. Patient says he has had nausea and vomiting ongoing for couple of days. He began to feel lightheaded and felt like passing out today. A friend called the EMS and he was brought here. He denies any diarrhea or abdominal discomfort fever, or chills or any sick contact. He denied any chest pain or palpitations at a time will be seen. His vitals in the ED show temperature of 97.8F, heart rate 70, blood pressure on arrival to the emergency department was 77/59, later 130/83, respiratory 16, SPO2 is 97% on room air. Admitting WBC count was 7.9, hemoglobin 11.8, platelet count was 164. INR 1.2, APTT 27.5, sodium 135 potassium 4.5, chloride 105,, 22, BUN 74, creatinine 2.97. He was discharged with a creatinine of 1.12. Troponins is slightly elevated at 0.192 Admitting EKG shows normal sinus rhythm with T wave inversions in lead I, aVL, V4, V5 V6. Past Medical History Past Medical History (Chronic Problems): Chronic Problems (Last Updated 03/05/19 @ 09:35 by Shannon Bradley) Essential hypertension (Chronic) Pure hypercholesterolemia (Chronic) Atherosclerotic heart disease of [place] coronary artery without angina pectoris (Chronic) S/P coronary artery stent placement (Chronic ~02/26/19) PTCA/REYNA to Diagonal 1 02/26/19 Coronary artery disease (Chronic) Tobacco chew use (Chronic) PFO (patent foramen ovale) (Chronic) Smokeless tobacco use (Chronic) Uncontrolled type 2 diabetes mellitus (Chronic) Acute cerebrovascular accident of cerebellum (Chronic) S/P PTCA (percutaneous transluminal coronary angioplasty) (Chronic) Noncompliance with medication regimen (Chronic) Medical History: Medical History (Last Updated 03/05/19 @ 09:35 by Shannon Bradley) Essential hypertension (Chronic) I10 Pure hypercholesterolemia (Chronic) E78.00 Atherosclerotic heart disease of [place] coronary artery without angina pectoris (Chronic) I25.10 Chest pain at rest (Acute) R07.9 Tobacco chew use (Chronic) Z72.0 RASHAWN (acute kidney injury) (Acute) N17.9 Chest pain (Acute) R07.9 Abnormal stress test (Acute) R94.39 PFO (patent foramen ovale) (Chronic) Q21.1 Smokeless tobacco use (Chronic) Z72.0 Uncontrolled type 2 diabetes mellitus (Chronic) E11.65 Acute cerebrovascular accident of cerebellum (Chronic) I63.9 Noncompliance with medication regimen (Chronic) Z91.14 Allergies ampicillin Allergy (Verified 03/12/19 14:20) Swelling ibuprofen [From Motrin] Allergy (Verified 03/12/19 14:20) Swelling SEA FOOD Allergy (Uncoded 02/25/19 08:20) Swelling Home Medications: Ambulatory Orders Medication Instructions Recorded Oxycodone HCl/Acetaminophen 10 - 325 mg PO Q6H PRN PRN 09/18/17 [Percocet 10-325 mg Tablet] Aspirin E.C. [Ecotrin] 81 mg PO DAILY@0800 #90 tab 05/21/18 Nitroglycerin (INPATIENT USE) 0.4 mg SUBLINGUAL Q5M PRN #10 tab 05/22/18 [Nitrostat] carvedilol 25 mg tablet 25 mg PO BID 02/14/19 clopidogrel 75 mg tablet 75 mg PO DAILY 02/14/19 furosemide 20 mg tablet 20 mg PO DAILY PRN 02/14/19 insulin detemir (U-100) 100 25 unit SC QHS 02/14/19 unit/mL (3 mL) subcutaneous pen insulin lispro (U-100) 100 unit/mL 15 unit SC TID 02/14/19 subcutaneous cartridge Lisinopril [Zestril] 20 mg PO BID #60 tab 02/27/19 metformin 500 mg tablet 500 mg PO BID 03/12/19 Atorvastatin Calcium [Lipitor] 40 mg PO QHS 03/28/19 Doxepin HCl 50 - 100 mg PO QHS 03/28/19 Isosorbide Mononitrate [Isosorbide 30 mg PO DAILY 03/28/19 Mononitrate ER] Naproxen 500 mg PO BID 03/28/19 Tizanidine HCl [Zanaflex] 4 mg PO TID PRN 03/28/19 Surgical History: Surgical History (Last Updated 02/26/19 @ 16:52 by Shannon Bradley) S/P coronary artery stent placement (Chronic) Onset Date: ~02/26/19 Z95.5 PTCA/REYNA to Diagonal 1 02/26/19 S/P PTCA (percutaneous transluminal coronary angioplasty) (Chronic) Z98.61 Surgical History: angioplasty, - - PCI, ankle, hip surgery, stomach surgery, neck surgery. Psychiatric History: No pertinent psych hx Lives: Alone Smoking Status: Never smoker Tobacco Use: Non-smoker, Chew Alcohol: None - Tobacco Drugs: None - *Family History Maternal History Items: Diabetes Paternal History Items: Heart Disease Sibling History Items: Heart Disease - CAD Review of Systems Constitutional: Reports: Malaise, Weakness, Fatigue. Denies: Anorexia, Chills, Fever, Weight Change Eyes: Denies: Blurred vision, Cataracts, Conjunctivae Inflammation, Double vision, Pain, Redness, Vision Change HEENT: Denies: Difficulty Hearing, Difficulty Swallowing, Head Aches, Hearing Changes, Nasal bleeding, Sinus Congestion, Sinus Drainage Cardiovascular: Reports: Light Headedness. Denies: Chest Pain, Claudication, Orthopnea, Palpitations, Paroxysmal Noc. Dyspnea Respiratory: Denies: Cough, Hemoptysis, Shortness of breath at rest, Shortness of breath upon exertion, Sputum production Gastrointestinal: Reports: Nausea, Vomiting. Denies: Abdominal Pain, Constipation, Hematemesis, Hematochezia Genitourinary: Denies: Dysuria, Frequency Musculoskeletal: Denies: Joint Pain, Joint stiffness, Joint swelling, Joint Tenderness Skin: Denies: Dryness, Rash, Wounds Neurological: Denies: Numbness, Tingling, Focal weakness Psychiatric: Denies: Anxiety, Depression, Homicidal Ideations, Suicidal Ideations Hematologic/ Lymphatic: Denies: Easy Bruising, Easy Bleeding VTE Information - Inpt Only VTE Present on Admission: No VTE Pharm Prophylaxis ordered?: Yes - Physical Exam General: Alert, Oriented x3, Cooperative, No apparent distress, - - appeared unkempt HEENT: Atraumatic, PERRLA, EOMI, Normocephalic Oral: Dry Mucosa Neck: Supple Lungs: Clear to auscultation, Normal air movement Cardiovascular: Regular rate, Regular Rhythm, Normal S1, Normal S2, No murmurs Abdomen: Bowel Sounds Present, Soft, Non Tender, Non-Distended, No Hepato-splenomegaly Extremities: No edema Skin: No rashes Musculoskeletal: No Tenderness to Palpation of Joints or Extremities Lymphatic: No Cervical, Supraclavicular, or Inguinal Adenopathy Neurological: Cranial nerves II-XII grossly intact, Neuro grossly intact Psych/Mental Status: Normal Affect, Appropriate Vital Signs Temp Pulse Resp BP Pulse Ox 97.9 F 69 14 113/72 97 03/28/19 19:03 03/28/19 19:00 03/28/19 19:00 03/28/19 19:00 03/28/19 19:00 Oxygen Delivery Method Room Air Weight: 80.8 kg Body Mass Index (BMI) 23.5 Finger Stick Blood Glucose 145 Laboratory Tests Past 24 Hrs 03/28/19 03/28/19 03/28/19 17:02 17:02 17:02 WBC Cancelled Corrected WBC Cancelled RBC Cancelled Hgb Cancelled Hct Cancelled MCV Cancelled MCH Cancelled MCHC Cancelled RDW Cancelled RDW Differential Cancelled Plt Count Cancelled MPV Cancelled Immature Gran % (Auto) Cancelled Neut % (Auto) Cancelled Lymph % (Auto) Cancelled Henderson % (Auto) Cancelled Eos % (Auto) Cancelled Baso % (Auto) Cancelled Absolute Neuts (auto) Cancelled Absolute Lymphs (auto) Cancelled Total Counted Cancelled Neutrophils % (Manual) Cancelled Band Neutrophils % Cancelled Lymphocytes % (Manual) Cancelled Monocytes % (Manual) Cancelled Eosinophils % (Manual) Cancelled Basophils % (Manual) Cancelled Metamyelocytes % Cancelled Myelocytes % Cancelled Promyelocytes % Cancelled Blast Cells % Cancelled Plasma Cell % (Manual) Cancelled Other Cells % Cancelled Nucleated RBCs/100 WBC Cancelled Differential Comment Cancelled Diff Path Review Cancelled Hypersegmented Neuts Cancelled Atypical Lymphocytes Cancelled Reactive Lymphocytes Cancelled Smudge Cells Cancelled Toxic Granulation Cancelled Toxic Vacuolation Cancelled Dohle Bodies Cancelled Isabelle Rods Cancelled Platelet Estimate Cancelled Plt Morphology Comment Cancelled RBC Morphology Cancelled Polychromasia Cancelled Hypochromasia Cancelled Poikilocytosis Cancelled Basophilic Stippling Cancelled Anisocytosis Cancelled Microcytosis Cancelled Macrocytosis Cancelled Spherocytes Cancelled Sickle Cells Cancelled Target Cells Cancelled Tear Drop Cells Cancelled Ovalocytes Cancelled Stomatocytes Cancelled Soriano-[place]erre[place] Bodies Cancelled Nirav Cells Cancelled Bite Cells Cancelled Crenated Cell Cancelled Acanthocytes (Spur) Cancelled Rouleaux Cancelled Schistocytes Cancelled PT INR APTT Sodium 135 L Potassium 4.5 Chloride 105 Carbon Dioxide 22.0 Anion Gap 8 BUN 74 H Creatinine 2.97 H Estim Creat Clear Calc 30.64 Est GFR (MDRD) Af Amer 28 L Est GFR (MDRD) Non-Af 23 L BUN/Creatinine Ratio 24.9 H Glucose 192 H Lactic Acid 0.4 Calcium 8.3 L Troponin I 0.192 H 03/28/19 03/28/19 17:02 18:15 WBC 7.9 Corrected WBC RBC 4.01 L Hgb 11.8 L Hct 35.8 L MCV 89.3 MCH 29.4 MCHC 33.0 RDW 13.4 RDW Differential 42.9 Plt Count 164 MPV 11.7 Immature Gran % (Auto) Neut % (Auto) Lymph % (Auto) Henderson % (Auto) Eos % (Auto) Baso % (Auto) Absolute Neuts (auto) Absolute Lymphs (auto) Total Counted Neutrophils % (Manual) Band Neutrophils % Lymphocytes % (Manual) Monocytes % (Manual) Eosinophils % (Manual) Basophils % (Manual) Metamyelocytes % Myelocytes % Promyelocytes % Blast Cells % Plasma Cell % (Manual) Other Cells % Nucleated RBCs/100 WBC Differential Comment Diff Path Review Hypersegmented Neuts Atypical Lymphocytes Reactive Lymphocytes Smudge Cells Toxic Granulation Toxic Vacuolation Dohle Bodies Isabelle Rods Platelet Estimate Plt Morphology Comment RBC Morphology Polychromasia Hypochromasia Poikilocytosis Basophilic Stippling Anisocytosis Microcytosis Macrocytosis Spherocytes Sickle Cells Target Cells Tear Drop Cells Ovalocytes Stomatocytes Soriano-[place] Bodies Nirav Cells Bite Cells Crenated Cell Acanthocytes (Spur) Rouleaux Schistocytes PT 14.7 INR 1.2 APTT 27.5 Sodium Potassium Chloride Carbon Dioxide Anion Gap BUN Creatinine Estim Creat Clear Calc Est GFR (MDRD) Af Amer Est GFR (MDRD) Non-Af BUN/Creatinine Ratio Glucose Lactic Acid Calcium Troponin I Assessment/Plan All Active Problems (Last Updated 03/05/19 @ 09:35 by Shannon Bradley) Hypotension (Acute) Abnormal EKG (Acute) Syncope (Acute) Leukocytosis (Acute) Chest pain at rest (Acute) RASHAWN (acute kidney injury) (Acute) Chest pain (Acute) Abnormal stress test (Acute) 58 year old M with past medical history of CAD status post recent stent, history of syncope, hypertension, hyperlipidemia who was recently admitted and discharged on 02/27/19 with syncope secondary to acute kidney injury in with nausea, vomiting, presyncope and found to be hypotensive and with acute kidney injury. 1. Presyncope/hypotension, multifactorial likely secondary to poor p.o. intake versus diuretic and blood pressure meds use Blood pressure is responsive to fluids, recent 2D echo showed EF of 50% with diastolic dysfunction Plan: Admit to PCU, monitor on telemetry, continue IV fluids, hold blood pressure medications, check static vitals every shift 2. Elevated troponin likely secondary to demand ischemia or type 2 NSTEMI, in the setting of hypotension on admission EKG shows T-wave inversions in lateral leads, admitting troponin is 0.192 Plan: Trend troponins, if it continues to be elevated, will consult cardiology 3. RASHAWN, prerenal secondary to #1, admitting creatinine is 2.97, previous creatinine was 1.12. Continuing IV fluids, strict I's and O's, trend blood work in a.m. 4. CAD s/p recent stent, continue on aspirin, Plavix, statins, hold beta-nanette for now, may resume when blood pressure is better 5. Hypertension, now hypotensive, management as seen #1 6. Hyperlipidemia, on starting 7. Nicotine dependence, chews tobacco, will put on replacement 8. DVT PPx- Heparin SC Code Visit Inpatient E&M: 24589 Init Hosp L3
[2019-03-28] MEDS: 0.9% Normal Saline 1,000 ML 999 ML IV (20:11)
[2019-03-28] MEDS: Heparin Injection (Vial) 5,000 UNIT/ML VIAL 5000 UNIT SC (22:25)
[2019-03-28] MEDS: Atorvastatin Calcium 40 MG Tablet PO (22:28)
[2019-03-28] MEDS: 0.9% Normal Saline 1,000 ML 150 ML IV (22:34)
[2019-03-29 00:25] LABS: Bedside Glucose 123 mg/dL (70-110)
[2019-03-29 02:35] VITALS: BP 128/83; PULSE 62; RESP 16; TEMP 36.5; O2SAT 96
[2019-03-29 03:00] VITALS: PULSE 66
[2019-03-29] MEDS: Heparin Injection (Vial) 5,000 UNIT/ML VIAL 5000 UNIT SC (05:18)
[2019-03-29] MEDS: 0.9% Normal Saline 1,000 ML 150 ML IV (05:18)
[2019-03-29 05:20] VITALS: BP 137/89; PULSE 64; RESP 16; TEMP 36.4; O2SAT 94
[2019-03-29 05:25] VITALS: BP 119/87; BP 133/88; BP 137/89; PULSE 61; PULSE 66; PULSE 72
[2019-03-29 06:21] LABS: Absolute Lymphocyte Count 1.22 X10^3/ul (0.83-4.51); Absolute Neutrophil Count 5.2 X10^3/uL (2.0-7.7); Basophil# 0.01 X10^3/uL; Basophil% 0.1 % (0-1); Eosinophil# 0.16 X10^3/uL; Eosinophils% 2.3 % (0-5); Hematocrit 37.7 % (40-54); Hemoglobin 12.4 g/dl (13.0-16.5); Lymphocyte # 1.22 X10^3/ul (4.0); Lymphocyte % 17.4 % (19-41); Mean Corp Hgb Conc 32.9 g/gl (32-36); Mean Corpuscular Hgb 29.2 pg (27.0-32.0); Mean Corpuscular Volume 88.7 fL (80-94); Mean Platelet Vol. 11.7 fl (6.2-12.0); Monocyte# 0.45 X10^3/uL; Monocyte% 6.4 % (0-10); Neutrophil # 5.15 X10^3/uL (2.7-7.7); Neutrophil % 73.5 % (47-70); POSITIVE COUNT NO; POSITIVE DIFFERENTIAL NO; POSITIVE MORPHOLOGY NO; Platelet Count 202 K/mm3 (150-450); RBC Distribution Width CV 13.5 % (11.6-14.6); Red Blood Count 4.25 M/mm3 (4.6-6.2)
[2019-03-29 06:37] LABS: ALB/GLOB Ratio 1.2 RATIO (0.9-2.4); AST(SGOT) 14 U/L (15-37); Alanine Aminotransfer ALT/SGPT 16 U/L (16-61); Albumin, Serum 3.1 g/dL (3.2-5.0); Alkaline Phosphatase 84 U/L (45-117); Anion Gap 6 (5-15); BUN 63 mg/dL (7-18); BUN/Creat Ratio 28.8 RATIO (10-20); Calcium,Total 7.9 mg/dL (8.5-10.1); Chloride 110 mmol/L (98-107); Creatinine, Serum 2.19 mg/dL (0.70-1.30); EST Glomerular Filtration Rate 33 mL/min (>60); Est Glom Filt Rate - Afr Amer 40 mL/min (>60); Estimated Creatinine Clearance 41.55 ml/min; Globulin 2.5 g/dL (2.2-4.2); Glucose 94 mg/dL (74-106); Potassium 4.9 mmol/L (3.5-5.1); Protein, Total 5.6 g/dL (6.4-8.2); Sodium Level 140 mmol/L (136-145)
[2019-03-29 06:46] LABS: Bedside Glucose 79 mg/dL (70-110)
[2019-03-29 06:55] VITALS: PULSE 65
[2019-03-29 10:00] VITALS: BP 138/81; PULSE 79; RESP 14; TEMP 36.6; O2SAT 97
[2019-03-29] MEDS: Clopidogrel Bisulfate 75 MG Tablet PO (10:03)
[2019-03-29] MEDS: Aspirin E.C. 81 MG Tablet PO (10:03)
--- NOTE | 2019-03-29 10:29 | DCINST_ITS ---
You will use the following diet at home:: Calorie/Carbohydrate Controlled (specify 1200, 1400, etc) - 1800 juan daniel Your food should be the consistency of: Regular Your liquids should be the consistency of: Regular/Thin Discharge Activity: Return to Normal Activity Weight Bearing Status: Full weight bearing Allergies/Adverse Reactions: Allergies ampicillin Allergy (Verified 03/12/19 14:20) Swelling ibuprofen [From Motrin] Allergy (Verified 03/12/19 14:20) Swelling SEA FOOD Allergy (Uncoded 02/25/19 08:20) Swelling Medications to take at Discharge Oxycodone HCl/Acetaminophen [Percocet 10-325 mg Tablet] 10 - 325 mg PO Q6H PRN PRN 09/18/17 Aspirin E.C. [Ecotrin] 81 mg PO DAILY@0800 #90 tab 05/21/18 Nitroglycerin (INPATIENT USE) [Nitrostat] 0.4 mg SUBLINGUAL Q5M PRN #10 tab 05/22/18 carvedilol 25 mg tablet 25 mg PO BID 02/14/19 clopidogrel 75 mg tablet 75 mg PO DAILY 02/14/19 Atorvastatin Calcium [Lipitor] 40 mg PO QHS 03/28/19 Doxepin HCl 50 - 100 mg PO QHS 03/28/19 Isosorbide Mononitrate [Isosorbide Mononitrate ER] 30 mg PO DAILY 03/28/19 Insulin Detemir [Levemir FlexPen] 15 unit SUBCUT QHS #1 insuln.pen 03/29/19 Insulin Lispro [Humalog] 10 unit SUBCUT TID #0 03/29/19 Lisinopril [Zestril] 20 mg PO DAILY #60 tab 03/29/19 The following prescriptions were given: Insulin Detemir [Levemir FlexPen] 15 unit SUBCUT QHS #1 insuln.pen Lisinopril [Zestril] 20 mg PO DAILY #60 tab Primary Care Physician: Rosario Arroyo DO [Primary Care Provider] - Please follow up with your Primary Care Physician in: on Sunday or Sunday of this week Test Results: Test results from this visit will be discussed in further detail at your follow- up appointment, if applicable.
--- NOTE | 2019-03-30 14:52 | PCM.DC.SUM ---
Discharge Date and Diagnosis Date of Admission: 03/28/19 Date of Discharge: 03/29/19 - Primary Discharge Diagnosis #1 acute kidney injury secondary to dehydration #2 elevated troponin-etiology unclear, not felt to be secondary to ischemia #3 type 2 diabetes #4 hypotension secondary to dehydration from nausea and vomiting #5 nausea and vomiting-etiology unclear - Secondary Discharge Diagnosis Chronic Problems (Last Updated 03/05/19 @ 09:35 by Shannon Bradley) Essential hypertension (Chronic) Pure hypercholesterolemia (Chronic) Atherosclerotic heart disease of [place] coronary artery without angina pectoris (Chronic) S/P coronary artery stent placement (Chronic ~02/26/19) PTCA/REYNA to Diagonal 1 02/26/19 Coronary artery disease (Chronic) Tobacco chew use (Chronic) PFO (patent foramen ovale) (Chronic) Smokeless tobacco use (Chronic) Uncontrolled type 2 diabetes mellitus (Chronic) Acute cerebrovascular accident of cerebellum (Chronic) S/P PTCA (percutaneous transluminal coronary angioplasty) (Chronic) Noncompliance with medication regimen (Chronic) Hospital Course and Treatment Operations: None Procedures: None Summary of Care Provided: The patient is a 58 year old M was seen in the emergency room at [facility] with a chief complaint of nausea and vomiting x3 days along with generalized weakness. Evaluation in the ER showed the patient's systolic blood pressure be in the 70s, his creatinine and BUN were elevated. Patient's troponin was elevated at 0.192. Patient was placed in observation status on PCU, given IV fluids, and troponins were cycled-they remained elevated in the intermediate range-these elevations did not appear to indicate ongoing ischemia. Etiology of the elevated troponins are unknown but could be associated with the patient's acute kidney injury. Patient's hypotension corrected with fluid administration and his creatinine decreased. On 03/29/2019, patient was seen and examined, he was eating and drinking without difficulty and wished to be discharged home. On examination he appeared in good health and spirits. Vital signs as documented. Skin warm and dry and without overt rashes. Neck without JVD. Lungs clear. Heart exam notable for regular rhythm, normal sounds and absence of murmurs, rubs or gallops. Abdomen unremarkable and without evidence of organomegaly, masses, or abdominal aortic enlargement. Extremities nonedematous. Neuro: Cranial nerves II through XII are grossly intact, no focal motor deficits were noted, sensation to light touch and pinprick intact. Psych: Patient is alert and oriented x3, he does not appear anxious or depressed On 03/29/2019, patient was seen and examined and felt to be in stable condition for discharge home. - Physical Exam Vital Signs Temp Pulse Resp BP Pulse Ox 97.9 F 79 14 138/81 H 97 03/29/19 10:00 03/29/19 10:00 03/29/19 10:00 03/29/19 10:00 03/29/19 10:00 Oxygen Delivery Method Room Air Weight: 81.3 kg Body Mass Index (BMI) 23.4 Finger Stick Blood Glucose 145 Intake and Output for Last 24 Hours 03/28/19 03/29/19 03/30/19 23:59 23:59 23:59 Intake Total 1261 / 1261 Balance 1261 / 1261 Discharge Activity: Return to Normal Activity Weight Bearing Status: Full weight bearing Home Medications: Medications to take at Discharge Oxycodone HCl/Acetaminophen [Percocet 10-325 mg Tablet] 10 - 325 mg PO Q6H PRN PRN 09/18/17 Aspirin E.C. [Ecotrin] 81 mg PO DAILY@0800 #90 tab 05/21/18 Nitroglycerin (INPATIENT USE) [Nitrostat] 0.4 mg SUBLINGUAL Q5M PRN #10 tab 05/22/18 carvedilol 25 mg tablet 25 mg PO BID 02/14/19 clopidogrel 75 mg tablet 75 mg PO DAILY 02/14/19 Atorvastatin Calcium [Lipitor] 40 mg PO QHS 03/28/19 Doxepin HCl 50 - 100 mg PO QHS 03/28/19 Isosorbide Mononitrate [Isosorbide Mononitrate ER] 30 mg PO DAILY 03/28/19 Insulin Detemir [Levemir FlexPen] 15 unit SUBCUT QHS #1 insuln.pen 03/29/19 Insulin Lispro [Humalog] 10 unit SUBCUT TID #0 03/29/19 Lisinopril [Zestril] 20 mg PO DAILY #60 tab 03/29/19 Following Prescrptions Were Given to Patient: Insulin Detemir [Levemir FlexPen] 15 unit SUBCUT QHS #1 insuln.pen Lisinopril [Zestril] 20 mg PO DAILY #60 tab Primary Care Physician: Rosario Arroyo DO [Primary Care Provider] - Please follow up with your Primary Care Physician in: on Sunday or Sunday of this week Disposition: Home Minutes spent on discharge:: 30 Patient Condition:: Stable Medical Necessity - Tobacco Use Smoking Status: Never smoker Tobacco Use: Non-smoker, Chew Meaningful Use Info Meaningful Use Diagnoses (Choose all that apply): None applicable Code Visit OBSV E&M: 68358 Observation care discharge
== END 2019-03-29 11:48 | disposition home or self-care (01) ==
LOC: ED 17:51 → PCU 19:56
PROVIDERS: Admitting Provider Internal Medicine; Emergency Provider Emergency Medicine; Family Provider Family Medicine; PCP Family Medicine; Visit Provider Internal Medicine
DX: E86.0 Dehydration (principal); N17.9 Acute kidney failure, unspecified; I25.2 Old myocardial infarction; I25.10 Atherosclerotic heart disease of native coronary artery without angina pectoris; E11.65 Type 2 diabetes mellitus with hyperglycemia; I10 Essential (primary) hypertension; F17.220 Nicotine dependence, chewing tobacco, uncomplicated; Q21.1 Atrial septal defect; Z86.73 Personal history of transient ischemic attack (TIA), and cerebral infarction without residual deficits; Z95.5 Presence of coronary angioplasty implant and graft; Z79.899 Other long term (current) drug therapy; Z79.82 Long term (current) use of aspirin; Z79.02 Long term (current) use of antithrombotics/antiplatelets; Z79.4 Long term (current) use of insulin; Z91.14 Patient's other noncompliance with medication regimen; E78.5 Hyperlipidemia, unspecified; R79.89 Other specified abnormal findings of blood chemistry
CPT/HCPCS: 36415; 80048; 80053; 82962; 83605; 84484; 85025; 85027; 85610; 85730; 93005; 96361; 96372; 96374; 99218; 99285; J7030; A4216; G0378; J2405

== ENCOUNTER → 2019-06-12 | Outpatient (CLI) | payer MEDICARE, SELFPAY ==
[2019-02-26 13:57] VITALS: BMI 24.9
[2019-06-12 14:24] VITALS: BMI 23.4
[2019-06-12 15:26] LABS: Absolute Lymphocyte Count 1.64 X10^3/uL (0.83-4.51); Absolute Neutrophil Count 6.3 X10^3/uL (2.0-7.7); Basophil# 0.06 X10^3/uL; Basophil% 0.7 % (0-1); Eosinophil# 0.23 X10^3/uL; Eosinophils% 2.6 % (0-5); Hematocrit 41.4 % (40-54); Hemoglobin 13.6 g/dL (13.0-16.5); Lymphocyte # 1.64 X10^3/ul (4.0); Lymphocyte % 18.4 % (19-41); Mean Corp Hgb Conc 32.9 g/dL (32-36); Mean Corpuscular Hgb 30.4 pg (27.0-32.0); Mean Corpuscular Volume 92.6 fL (80-94); Monocyte# 0.65 X10^3/uL; Monocyte% 7.3 % (0-10); NRBC Flagged by Analyzer 0 % (0-5); Neutrophil # 6.28 X10^3/uL (2.7-7.7); Neutrophil % 70.7 % (47-70); Platelet Count 229 K/mm3 (150-450); RBC Distribution Width CV 14.2 % (11.6-14.6); RBC Distribution Width SD 48.2 fl (35.1-43.9); Red Blood Count 4.47 M/mm3 (4.6-6.2); White Blood Count 8.9 K/mm3 (4.4-11.0)
[2019-06-12 16:05] LABS: Anion Gap 7 (5-15); BUN 23 mg/dL (7-18); BUN/Creat Ratio 17.2 RATIO (10-20); Calcium,Total 8.6 mg/dL (8.5-10.1); Chloride 106 mmol/L (98-107); Creatinine, Serum 1.34 mg/dL (0.70-1.30); EST Glomerular Filtration Rate 58 mL/min (>60); Est Glom Filt Rate - Afr Amer 70 mL/min (>60); Glucose 172 mg/dL (74-106); Magnesium 1.9 mg/dL (1.6-2.6); Potassium 3.8 mmol/L (3.5-5.1); Sodium Level 139 mmol/L (136-145); Thyroid Stim Hormone (TSH) 1.24 uIU/mL (0.358-3.74)
== END | disposition home or self-care (01) ==
LOC: LAB 14:45
PROVIDERS: Family Provider Family Medicine; PCP Family Medicine; Referring Provider Nurse Practitioner Family; Visit Provider Nurse Practitioner Family
DX: I25.10 Atherosclerotic heart disease of native coronary artery without angina pectoris (principal); Z95.5 Presence of coronary angioplasty implant and graft; E78.00 Pure hypercholesterolemia, unspecified; I10 Essential (primary) hypertension; R53.83 Other fatigue
CPT/HCPCS: 36415; 80048; 83735; 84443; 85025

== ENCOUNTER 2019-06-30 17:25 | Emergency (ER) | payer MEDICARE, SELFPAY ==
[2019-02-26 13:57] VITALS: BMI 24.9
[2019-06-12 14:24] VITALS: BMI 23.4
[2019-06-30 17:27] VITALS: BP 186/119; PULSE 88; RESP 16; TEMP 36.7; O2SAT 99; BMI 24.4
--- NOTE | 2019-06-30 18:02 | CT_ITS ---
STUDY: CT BRAIN WITHOUT CONTRAST REASON FOR EXAM: Male, 58 years old. Fall RADIATION DOSAGE (If Supplied By Facility): DLP = ( 829.85 ) mGycm TECHNIQUE: Transaxial CT imaging of the brain was performed without administration of intravenous contrast material. Individualized dose optimization techniques were used for this CT. COMPARISON: CT head February 25, 2019 FINDINGS: There is no acute bleed or infarct. There are chronic ischemic and atrophic changes. Stable right cerebellar encephalomalacia is present. The ventricles are normal in configuration. There is no hydrocephalus. The visualized paranasal sinuses are clear. The mastoid air cells are well aerated. There is no skull fracture. CT/Brain/Head without Contrast IMPRESSION: No acute intracranial abnormality. Stable chronic changes. Electronically Signed: Nato Dubon, at 18:32 EDT Tel , Service support ,
--- NOTE | 2019-06-30 18:03 | RAD_ITS ---
STUDY: X-RAY CHEST REASON FOR EXAM: Male, 58 years old. Cough and weakness. Fall TECHNIQUE: Frontal and lateral views of the chest. COMPARISON: 02/25/2019. FINDINGS: The lungs are clear and expanded. There is no demonstrated pleural abnormality. Normal size heart. Normal mediastinum and gilbert. Normal visualized pulmonary arteries. Normal visualized aortic arch and descending thoracic aorta. Normal visualized thoracic spine. Normal visualized ribs, clavicles, and shoulders. There is no demonstrated abnormality of the visualized soft tissue structures of the upper abdomen. RAD/Chest PA and Lateral IMPRESSION: Normal x-ray examination of the chest. Electronically Signed: Steve Rueda MD at 19:29 EDT , Service support ,
--- NOTE | 2019-06-30 18:03 | RAD_ITS ---
STUDY: X-RAY - MANDIBLE (COMPLETE) REASON FOR EXAM: Male, 58 years old. Fall. Pain. TECHNIQUE: 5 view(s) of the mandible were obtained. COMPARISON: None. FINDINGS: Normal mandible. Normal visualized right temporomandibular joint. Normal visualized left temporomandibular joint. The remaining visualized osseous structures are normal. The soft tissue structures are unremarkable. There is no demonstrated fracture. RAD/Mandible Min 4 Views IMPRESSION: No definite fracture or dislocation. Electronically Signed: Steve Rueda MD at 19:27 EDT , Service support ,
--- NOTE | 2019-06-30 18:04 | ED.VIS.GEN ---
History of Present Illness Chief Complaint: Fall Informant: Patient, Friend Onset: Yesterday Current Severity: Mild Maximum Severity: Moderate Narrative: Patient presents after 2 falls yesterday. He went to a local restaurant and lost his balance walking across the parking lot. He reports being knocked out. He states a bystander stopped his car and helped him up. He went into the restaurant and ate. While walking back home he fell again, but does not injure himself on this fall. Patient is complaining of pain to his mouth. He does report that one tooth is missing. He denies headache or neck pain. Past Medical History - Allergies and Home Meds Allergies/Adverse Reactions: Allergies ampicillin Allergy (Verified 06/30/19 17:27) Swelling ibuprofen [From Motrin] Allergy (Verified 06/30/19 17:27) Swelling SEA FOOD Allergy (Uncoded 06/30/19 17:27) Swelling Primary Care Physician: Rosario Arroyo DO [Primary Care Provider] - Prior records reviewed: Yes Past Medical History: - - Reviewed Surgical History: angioplasty, - - PCI, ankle, hip surgery, stomach surgery, neck surgery. Smoking Status: Former smoker - Family History Maternal Family History: Reports: Diabetes Paternal Family History: Reports: Heart Disease Sibling Family History: Reports: Heart Disease - CAD Review of Systems General: Denies: Chills, Fever Eyes: Denies: Visual changes - bilaterally ENT: Reports: - - Dental pain. Denies: Bilateral ear pain Cardiovascular: Denies: Chest pain Respiratory: Denies: Dyspnea, Cough Gastrointestinal: Denies: Abdominal pain, Nausea, Vomiting Musculoskeletal: Denies: Neck pain, Back pain Skin: Reports: Abrasions Neurological: Denies: Headache Hematologic: Denies: Easy bruising Allergy: Denies: Uticaria Physical Exam Vital Signs/Narrative: Vital Signs Temp Pulse Resp BP Pulse Ox 06/30/19 17:27 98.1 F 88 16 186/119 H 99 Inital Vital Signs reviewed: Yes General: Well nourished, Well developed Head: Normocephalic Eyes: Perrl, EOMI ENT: - - Abrasions on tip of nose. Abrasion and edema to the upper lip on the right. Right upper lateral incisor is avulsed. The right central upper incisor is loose. Neck: Supple, - - No C-spine tenderness. Cardiovascular: Regular rate, Regular rhythm Respiratory: No distress, CTA bilaterally Abdomen: Soft, Nontender Extremities: Nontender Skin: - - Abrasions as above Neurological: Alert, Oriented x3 Psychological: Normal affect Diagnostic/Tx/Re-eval Impressions Brain CT 06/30/19 18:02 IMPRESSION: No acute intracranial abnormality. Stable chronic changes. Electronically Signed: Nato Dubon, at 18:32 EDT Tel , Service support , Chest X-Ray 06/30/19 18:03 IMPRESSION: Normal x-ray examination of the chest. Electronically Signed: Steve Rueda MD at 19:29 EDT , Service support , Mandible X-Ray 06/30/19 18:03 IMPRESSION: No definite fracture or dislocation. Electronically Signed: Steve Rueda MD at 19:27 EDT , Service support , 06/30/19 18:02 CT Head [Brain/Head without Contrast] [CT] Stat 06/30/19 18:03 CXR [Chest PA and Lateral] [RAD] Stat Mandible Min 4 Views [RAD] Stat - Medical Decision Making Tetanus update is provided. Coepack is used to stabilize the loose tooth. He will be covered with antibiotics to cover his oral cavity. He is given a dental referral list. ED Disposition - Plan for ED Patient: Disposition: Home or Assisted Living Diagnosis: Fall, Avulsion of tooth Instructions: FALL, Mechanical, Dental Trauma Prescriptions: Clindamycin [Cleocin] 300 mg PO 4X/DAY #80 capsule Referrals: Rosario Arroyo DO [Primary Care Provider] - Additional Instructions: Dental list provided
[2019-06-30 19:46] VITALS: BP 177/100; PULSE 82; RESP 18; O2SAT 97
[2019-06-30] MEDS: Diphth,Pertuss(Acell),Tet Vac 0.5 ML Vial IM (20:06)
[2019-06-30] MEDS: Clindamycin HCl 150 MG Capsule 300 MG PO (20:07)
[2019-06-30 20:20] VITALS: BP 168/100; PULSE 88; RESP 19; O2SAT 95
== END 2019-06-30 20:21 | disposition home or self-care (01) ==
PROVIDERS: Emergency Provider Emergency Medicine; Family Provider Family Medicine; PCP Family Medicine
DX: S03.2XXA Dislocation of tooth, initial encounter (principal); Z87.891 Personal history of nicotine dependence; Z23 Encounter for immunization; W18.30XA Fall on same level, unspecified, initial encounter; Y93.01 Activity, walking, marching and hiking; Y92.481 Parking lot as the place of occurrence of the external cause; Y99.8 Other external cause status
CPT/HCPCS: 70110; 70450; 71046; 90471; 90715; 99283

== ENCOUNTER → 2019-09-01 14:18 | Outpatient (CLI) | payer MEDICARE, SELFPAY ==
[2019-02-26 13:57] VITALS: BMI 24.9
[2019-09-01 17:01] LABS: Absolute Lymphocyte Count 1.26 X10^3/uL (0.83-4.51); Absolute Neutrophil Count 4.5 X10^3/uL (2.0-7.7); Basophil# 0.05 X10^3/uL; Basophil% 0.8 % (0-1); Eosinophil# 0.19 X10^3/uL; Hematocrit 43.6 % (40-54); Hemoglobin 13.9 g/dL (13.0-16.5); Lymphocyte # 1.26 X10^3/ul (4.0); Mean Corp Hgb Conc 31.9 g/dL (32-36); Mean Corpuscular Hgb 29.4 pg (27.0-32.0); Mean Corpuscular Volume 92.2 fL (80-94); Mean Platelet Vol. 11.7 fl (6.2-12.0); Monocyte# 0.31 X10^3/uL; Monocyte% 4.9 % (0-10); NRBC Flagged by Analyzer 0 % (0-5); Neutrophil # 4.47 X10^3/uL (2.7-7.7); Platelet Count 221 K/mm3 (150-450); RBC Distribution Width CV 13.2 % (11.6-14.6); RBC Distribution Width SD 44.6 fl (35.1-43.9); Red Blood Count 4.73 M/mm3 (4.6-6.2); White Blood Count 6.3 K/mm3 (4.4-11.0)
[2019-09-01 17:17] LABS: Vitamin B12 322 pg/mL (211-911)
[2019-09-01 17:18] LABS: ALB/GLOB Ratio 1.3 RATIO (0.9-2.4); AST(SGOT) 11 U/L (15-37); Alanine Aminotransfer ALT/SGPT 15 U/L (16-61); Albumin, Serum 3.9 g/dL (3.2-5.0); Alkaline Phosphatase 91 U/L (45-117); Anion Gap 10 (5-15); BUN 22 mg/dL (7-18); Calcium,Total 8.6 mg/dL (8.5-10.1); Chloride 108 mmol/L (98-107); Cholesterol 107 mg/dL (200); Creatinine, Serum 1.22 mg/dL (0.70-1.30); EST Glomerular Filtration Rate 65 mL/min (>60); Est Glom Filt Rate - Afr Amer 78 mL/min (>60); Globulin 2.9 g/dL (2.2-4.2); Glucose 187 mg/dL (74-106); High Density Lipoprotein 36 mg/dL; Magnesium 1.9 mg/dL (1.6-2.6); Protein, Total 6.8 g/dL (6.4-8.2); Sodium Level 143 mmol/L (136-145); Triglycerides 78 mg/dL; Very Low Density Lipoprotein 16 mg/dL (5-40)
== END ==
PROVIDERS: Family Provider Family Medicine; PCP Family Medicine; Visit Provider Family Medicine
DX: D64.9 Anemia, unspecified (principal); E11.9 Type 2 diabetes mellitus without complications; E78.5 Hyperlipidemia, unspecified; I10 Essential (primary) hypertension; R53.83 Other fatigue; E87.6 Hypokalemia; E55.9 Vitamin D deficiency, unspecified; E53.8 Deficiency of other specified B group vitamins
CPT/HCPCS: 36415; 80053; 80061; 82306; 82607; 83735; 85025

== ENCOUNTER → 2019-09-15 08:49 | Outpatient (CLI) | payer MEDICARE, SELFPAY ==
[2019-02-26 13:57] VITALS: BMI 24.9
== END ==
PROVIDERS: Family Provider Family Medicine; PCP Family Medicine; Referring Provider Family Medicine; Visit Provider Family Medicine
DX: R42 Dizziness and giddiness (principal); I10 Essential (primary) hypertension; I49.9 Cardiac arrhythmia, unspecified; R29.6 Repeated falls
CPT/HCPCS: 93225; 93226

== ENCOUNTER → 2020-11-23 07:43 | Outpatient (CLI) | payer MEDICARE, MEDICAID, SELFPAY ==
[2019-02-26 13:57] VITALS: BMI 24.9
[2020-04-28 11:13] VITALS: BMI 24.6
[2020-11-23 09:02] LABS: Vitamin B12 221 pg/mL (211-911); Vitamin D,25 Hydroxy 22.1 ng/mL
[2020-11-23 09:05] LABS: Hemoglobin A1c 5.5 % (3.8-5.6)
[2020-11-23 09:14] LABS: ALB/GLOB Ratio 1.1 RATIO (0.9-2.4); AST(SGOT) 21 U/L (15-37); Alanine Aminotransfer ALT/SGPT 16 U/L (16-61); Albumin, Serum 3.4 g/dL (3.2-5.0); Alkaline Phosphatase 117 U/L (45-117); Anion Gap 7 (5-15); BUN 15 mg/dL (7-18); BUN/Creat Ratio 9.6 RATIO (10-20); Calcium,Total 8.2 mg/dL (8.5-10.1); Chloride 105 mmol/L (98-107); Cholesterol 145 mg/dL (200); Creatinine, Serum 1.57 mg/dL (0.70-1.30); EST Glomerular Filtration Rate 48 mL/min (>60); Est Glom Filt Rate - Afr Amer 58 mL/min (>60); Globulin 3.2 g/dL (2.2-4.2); Glucose 88 mg/dL (74-106); High Density Lipoprotein 37 mg/dL; Potassium 3.6 mmol/L (3.5-5.1); Protein, Total 6.6 g/dL (6.4-8.2); Sodium Level 140 mmol/L (136-145); Triglycerides 144 mg/dL; Very Low Density Lipoprotein 29 mg/dL (5-40)
== END ==
PROVIDERS: PCP Family Medicine; Referring Provider Family Medicine; Visit Provider Family Medicine
DX: E11.9 Type 2 diabetes mellitus without complications (principal); E78.5 Hyperlipidemia, unspecified; R53.83 Other fatigue; E55.9 Vitamin D deficiency, unspecified; E53.8 Deficiency of other specified B group vitamins; Z79.4 Long term (current) use of insulin
CPT/HCPCS: 36415; 80053; 80061; 82043; 82306; 82570; 82607; 83036

== ENCOUNTER 2020-12-03 13:10 | Outpatient (RCR) | payer MEDICARE, SELFPAY ==
[2019-02-26 13:57] VITALS: BMI 24.9
[2020-04-28 11:13] VITALS: BMI 24.6
[2020-12-03] MEDS: COVID-19 VACC, MRNA(PFIZER)/PF 30 MCG/0.3 ML SYRINGE IM (10:45)
[2020-12-24] MEDS: COVID-19 VACC, MRNA(PFIZER)/PF 30 MCG/0.3 ML SYRINGE IM (11:01)
== END 2020-12-03 23:59 ==
LOC: IMMUN 13:10
PROVIDERS: PCP Family Medicine; Visit Provider Family Medicine
DX: Z23 Encounter for immunization (principal)
CPT/HCPCS: 0001A; 0002A; 91300

== ENCOUNTER 2022-03-04 09:20 | Inpatient (IN) | payer MEDICARE, MEDICAID, SELFPAY ==
[2019-02-26 13:57] VITALS: BMI 24.9
[2022-03-04] VITALS (16 sets, daily range): BP systolic 135–159; BP diastolic 79–108; PULSE 67–100; RESP 12–18; TEMP 36.5–37.1; O2SAT 97–100; BMI 18.3
--- NOTE | 2022-03-04 09:20 | CT_ITS ---
STUDY: CT HEAD STROKE PROTOCOL W/O CONTRAST INJECTION REASON FOR EXAM: Male, 61 years old. Tripped and fell, right-sided weakness. RADIATION DOSAGE (If Supplied By Facility): CTDIvol = ( ) mGy, DLP = ( ) mGycm TECHNIQUE: Transaxial CT imaging of the brain was performed without administration of intravenous contrast material. Individualized dose optimization techniques were used for this CT. COMPARISON: 06/30/2019. FINDINGS: Normal soft tissue structures. Old fracture of the right zygomatic arch. The calvarium otherwise appear intact. There is mild cerebral atrophy with widening of the extra-axial spaces and ventricular dilatation. There are areas of decreased attenuation within the white matter tracts of the supratentorial brain, consistent with microvascular disease changes. The coronary infarcts in the basal ganglia bilaterally. Normal brainstem. Right cerebellar encephalomalacia is again seen. There is no intracranial hemorrhage. There are no findings of an acute ischemic infarction. Normal visualized paranasal sinuses. CT/STROKE Brain/Head without Cont IMPRESSION: Chronic involutional changes of the brain. Right cerebellar encephalomalacia unchanged. No acute intracranial process. N.B. : The above Results were Read Back by Carmelo Wallis MD to VANNA Pool, and understanding confirmed on 03/04/2022 10:00:05 (ET). Electronically Signed: Carmelo Wallis MD at 10:00 EDT ,
--- NOTE | 2022-03-04 09:20 | CT_ITS ---
STUDY: CTA HEAD AND NECK WITH CONTRAST REASON FOR EXAM: Male, 61 years old. Status post fall, right-sided weakness. RADIATION DOSAGE (If Supplied By Facility): CTDIvol = ( 25.43 ) mGy, DLP = ( 660.4 ) mGycm TECHNIQUE: CT angiography was performed with a multi-detector CT scanner. Data acquisition was obtained from the skull base through the vertex following intravenous administration of IV 100mL Isovue-370. MIP images were reconstructed from the axial data set. Post-processing of the angiographic images was performed, with multiplanar reformation and 3D reconstruction. Individualized dose optimization techniques were used for this CT. COMPARISON: No relevant priors. FINDINGS: Normal bilateral petrous carotid arteries. There is calcified plaque formation of the right cavernous carotid artery, without a cross-sectional luminal stenosis. There is calcified plaque formation of the left cavernous carotid artery, without a cross-sectional luminal stenosis. Normal right A1 segments of the anterior cerebral artery. Normal left A1 segments of the anterior cerebral artery. Normal intact anterior communicating artery (ACOM). Normal bilateral A2 segments of the anterior cerebral arteries. Normal right M1 and M2 segments of the middle cerebral arteries, with a normal M1 bifurcation. Normal left M1 and M2 segments of the middle cerebral arteries, with a normal M1 bifurcation. Normal right posterior communicating artery (PCOM). There is non-visualization of the left posterior communicating artery (PCOM). Normal bilateral vertebral arteries. Normal basilar artery with a normal basilar bifurcation. The visualized bilateral superior cerebellar (SCA) arteries are normal. There is no demonstrated definite aneurysm of the [place]. AORTIC ARCH: There is atherosclerotic calcific plaque formation of the aortic arch and great vessels arising from the aortic arch, without a hemodynamically significant stenosis. There is a normal origin of the brachiocephalic, left common carotid, and left subclavian arteries. Normal origins of the brachiocephalic, left common carotid, and left subclavian arteries. RIGHT CAROTID ARTERIES: There is atherosclerotic tortuous elongation of the right common carotid artery. There is mild atherosclerotic plaque formation with minimal narrowing of the right carotid bulb. There is mild atherosclerotic plaque formation of the origin of the right internal carotid artery with less than 50% cross sectional diameter stenosis. Normal visualized cervical portion of the right internal carotid artery. Normal origin of the right external carotid artery (ECA). LEFT CAROTID ARTERIES: Normal left common carotid artery (CCA). There is mild atherosclerotic plaque formation with minimal narrowing of the left carotid bulb. There is mild atherosclerotic plaque formation of the origin of the left internal carotid artery with less than 50% cross sectional diameter stenosis. Normal visualized cervical portion of the left internal carotid artery. Normal origin of the left external carotid artery (ECA). VERTEBRAL ARTERIES: Normal bilateral vertebral arteries. CT/CTA Head AND Neck W/ Contrast IMPRESSION: 1. No intracranial great vessel stenosis. 2. Mild atherosclerotic changes in the bulb regions bilaterally and proximal internal carotid artery without significant stenosis. 3. Patent bilateral vertebral arteries without evidence of stenosis. Electronically Signed: Carmelo Wallis MD at 10:41 EDT ,
--- NOTE | 2022-03-04 09:46 | EKG12_ITS ---
Test Reason : FALL Blood Pressure : / mmHG Vent. Rate : 091 BPM Atrial Rate : 091 BPM P-R Int : 112 ms QRS Dur : 076 ms QT Int : 374 ms P-R-T Axes : 067 062 063 degrees QTc Int : 460 ms Normal sinus rhythm Nonspecific ST and T wave abnormality Abnormal ECG Confirmed by JOELLE GAXIOLA, AMRITA ([id number]), web content editor GIRMA MENDOSA ([id number]) on 03/06/2022 12:48:17 PM Referred By: KRYSTYNA Confirmed By:AMRITA LAI MD
--- NOTE | 2022-03-04 09:46 | RAD_ITS ---
STUDY: X-RAY CHEST REASON FOR EXAM: Male, 61 years old. Neuro deficit, acute, stroke suspected TECHNIQUE: Single AP portable view of the chest. COMPARISON: 06/30/2019. FINDINGS: The lungs are somewhat hyperinflated. Lucency in the lateral aspect of the right lower chest probably due to skinfold. No focal infiltrate is seen. There is no demonstrated pleural abnormality. Normal size heart. Normal mediastinum and gilbetr. Normal visualized pulmonary arteries. There is atherosclerotic tortuosity of the aortic arch and descending thoracic aorta. Dextroscoliosis of the thoracic spine probably positional. No demonstrated acute osseous changes. There is no demonstrated abnormality of the visualized soft tissue structures of the upper abdomen. RAD/Chest 1 View IMPRESSION: No active pulmonary disease. Electronically Signed: Carmelo Wallis MD at 10:43 EDT ,
[2022-03-04 09:55] LABS: Absolute Lymphocyte Count 1.23 X10^3/uL (0.83-4.51); Absolute Neutrophil Count 4.4 X10^3/uL (2.0-7.7); Basophil# 0.05 X10^3/uL; Basophil% 0.8 % (0-1); Eosinophils% 3.2 % (0-5); Hematocrit 29.8 % (40-54); Lymphocyte # 1.23 X10^3/ul (0.83-4.51); Mean Corp Hgb Conc 30.2 g/dL (32-36); Mean Corpuscular Hgb 28.1 pg (27.0-32.0); Mean Corpuscular Volume 93.1 fL (80-94); Mean Platelet Vol. 11.1 fl (6.2-12.0); Monocyte# 0.23 X10^3/uL; Monocyte% 3.7 % (0-10); NRBC Flagged by Analyzer 0 % (0-5); Neutrophil # 4.42 X10^3/uL (2.7-7.7); Neutrophil % 71.8 % (47-70); Platelet Count 323 K/mm3 (150-450); RBC Distribution Width CV 13.4 % (11.6-14.6); RBC Distribution Width SD 45.9 fl (35.1-43.9); White Blood Count 6.2 K/mm3 (4.4-11.0)
[2022-03-04 09:56] LABS: Bedside Glucose 106 mg/dL (74-106)
[2022-03-04 10:11] LABS: International Normalized Ratio 1.1; Prothrombin Time (Protime)PT. 13.8 SECONDS (11.7-14.9)
[2022-03-04 10:12] LABS: Partial Thromboplast Time 27.6 Seconds (24.1-36.2)
[2022-03-04 10:15] LABS: Anion Gap 10 (5-15); BUN 19 mg/dL (7-18); BUN/Creat Ratio 6.8 RATIO (10-20); Calcium,Total 8.6 mg/dL (8.5-10.1); Chloride 104 mmol/L (98-107); Creatinine, Serum 2.78 mg/dL (0.70-1.30); EST Glomerular Filtration Rate 25 mL/min (>60); Est Glom Filt Rate - Afr Amer 30 mL/min (>60); Estimated Creatinine Clearance 26.52 ml/min; Glucose 154 mg/dL (74-106); Potassium 4.6 mmol/L (3.5-5.1); Sodium Level 136 mmol/L (136-145); Troponin-I HS 40 pg/mL (3.0-78.0)
[2022-03-04 10:27] LABS: CPK Total, Creatine Kinase 132 U/L (39-308)
[2022-03-04] MEDS: 0.9% Normal Saline 1,000 ML 999 ML IV (10:37)
[2022-03-04 11:35] LABS: Alcohol, Blood (Medical)-Serum < 3.0 mg/dL
--- NOTE | 2022-03-04 12:19 | EX.ED.DYSGE1 ---
HPI History of Present Illness Chief Complaint: Neuro S/Sx Narrative Narrative: 61-year-old male initially presenting as a stroke team as he had been found on the floor with generalized weakness. He states that he fell yesterday. He is a very poor informant and for some reason answers yes to most questions. I met him at the door and the only deficit that I can get was that he had difficulty raising his right leg. I asked him if this was a new problem and he said yes. He was immediately taken down for CT and CTA. Upon arriving back to the room the rest of his neurological exam was normal. He got no complaint of pain. He did have what appeared to be black vomit in his alvarez but he states that it was from chewing tobacco. He denied any black or bloody stools that he knew of. I asked if he would normally lay on the floor or if he was generally too weak to get up on his own and he said yes. He did have a lot of bedbugs on him when he arrived. He was unkempt. He does have a history of stroke in the past but was unable to tell me if he had any deficits. [facility] Medical History Abnormal stress test Acute cerebrovascular accident of cerebellum RASHAWN (acute kidney injury) Atherosclerotic heart disease of [place] coronary artery without angina pectoris Chest pain Chest pain at rest Essential hypertension History of left heart catheterization (LHC) (~02/26/19) Noncompliance with medication regimen PFO (patent foramen ovale) Presence of stent in coronary artery (~02/26/19) Pure hypercholesterolemia Smokeless tobacco use Tobacco chew use Uncontrolled type 2 diabetes mellitus Home Medications aspirin 81 mg tablet,delayed release 81 mg PO DAILY@0800 #90 tabs 05/21/18 [Rx Last Taken 03/28/19] nitroglycerin 0.4 mg sublingual tablet 0.4 mg sublingual Q5M PRN Chest Pain #10 tabs 05/22/18 [Rx Last Taken 02/24/19] carvedilol 25 mg tablet (Coreg) 25 mg PO BID 02/14/19 [History Last Taken 03/28/19] clopidogrel 75 mg tablet (Plavix) 75 mg PO DAILY 02/14/19 [History Last Taken 03/28/19] atorvastatin 40 mg tablet 40 mg PO QHS 03/28/19 [History Last Taken 03/27/19] doxepin 50 mg capsule 50 - 100 mg PO QHS 03/28/19 [History Last Taken 03/27/19] insulin detemir U-100 100 unit/mL (3 mL) subcutaneous pen 15 unit (0.15 mL) subcut QHS ##1 03/29/19 [Rx Last Taken Unknown] insulin lispro 100 unit/mL subcutaneous cartridge 10 unit (0.1 mL) subcut TID ##0 03/29/19 [Rx Last Taken 02/24/19] furosemide 20 mg tablet 20 mg PO DAILY 06/12/19 [History Last Taken Unknown] lisinopril 20 mg tablet 10 mg PO BID 06/12/19 [History Last Taken Unknown] metformin 500 mg tablet 500 mg PO BID 06/12/19 [History Last Taken Unknown] naproxen 500 mg tablet 500 mg PO DAILY 06/12/19 [History Last Taken Unknown] Allergy/AdvReac Type Severity Reaction Status Date / Time ampicillin Allergy Swelling Verified 11/22/21 14:00 ibuprofen [From Motrin] Allergy Swelling Verified 11/22/21 14:00 SEA FOOD Allergy Swelling Uncoded 11/22/21 14:00 Surgical History Presence of coronary angioplasty implant and graft (~02/26/19) Social History Smoking Status: Never smoker alcohol intake: never substance use type: does not use caffeine: Yes ROS ROS ED ROS Narrative Generalized weakness Constitutional Constitutional ED: Denies chills or fever(s) Eyes Eyes: Denies change in vision ENT ENT ED: Denies rhinorrhea or sore throat Cardiovascular Cardiovascular: Denies chest pain or palpitations Respiratory/Chest Respiratory/Chest: Denies cough or dyspnea Gastrointestinal Gastrointestinal: Denies abdominal pain, constipation, diarrhea or melena Genitourinary Genitourinary ED: Denies dysuria Musculoskeletal Musculoskeletal: Denies arthralgias or back pain Integumentary Denies abscess Neurologic Neurologic: Reports weakness; Denies headache(s) or paresthesias Psychiatric Psychiatric: Denies anxiety or depression EXAM Physical Exam Const Vital Signs: 03/04/22 09:27 03/04/22 09:43 03/04/22 10:16 Temperature 97.7 F L Temperature Source Oral Pulse Rate 88 92 70 Respiratory Rate 18 16 17 Blood Pressure 135/87 H 159/101 H 150/108 H Blood Pressure Mean 103 120 122 Pulse Ox 98 100 100 Oxygen Delivery Method Room Air Room Air Room Air 03/04/22 10:35 03/04/22 10:35 03/04/22 10:36 Temperature Temperature Source Pulse Rate 76 Respiratory Rate 17 Blood Pressure 143/99 H Blood Pressure Mean 113 Pulse Ox 99 Oxygen Delivery Method Room Air Room Air Room Air 03/04/22 11:00 03/04/22 11:30 03/04/22 12:00 Temperature 98.7 F 98.8 F 98.6 F Temperature Source Temporal Temporal Temporal Pulse Rate 74 79 78 Respiratory Rate 16 14 16 Blood Pressure 148/104 H 157/102 H 156/98 H Blood Pressure Mean 118 120 117 Pulse Ox 100 100 98 Oxygen Delivery Method Room Air Room Air Room Air 03/04/22 12:00 03/04/22 12:06 Temperature 98.6 F 98.6 F Temperature Source Temporal Temporal Pulse Rate 78 78 Respiratory Rate 14 14 Blood Pressure 156/98 H 158/94 H Blood Pressure Mean 117 115 Pulse Ox 98 98 Oxygen Delivery Method Room Air Room Air Positive unkempt General Appearance ED: unkempt; Negative for pallor HEENT Reports dry mucous membranes Negative for trauma Mouth ED: Yes dry mucous membranes Mouth: dry mucous membranes Eyes PERRL and EOMs intact bilaterally General Eye ED: Yes pale conjunctiva; Negative for scleral icterus Neck no lymphadenopathy Chest Wall inspection of chest normal and palpation of chest normal Resp normal respiratory effort and clear to auscultation bilaterally Auscultation: Negative for rales, rhonchi or wheezes Cardio regular rate and regular rhythm GI normal to inspection, nondistended, normoactive bowel sounds GI Narrative: There appears to be dried black stool around the rectum. On digital rectal exam the stool was brown. No blood noted. Rectal Exam: normal sphincter tone; Negative for heme positive stool Back/Spine Cervical Spine: Negative for cervical spine tenderness Thoracic Spine / Upper Back: Negative for thoracic spinal tenderness or paraspinal muscle tenderness Lumbar Spine / Lower Back: Negative for lumbar spinal tenderness Neuro oriented x3, CN's II-XII intact bilaterally and no sensory deficits noted Neuro Narrative: Right leg slightly weaker than the left leg. He is able to hold up off of the bed but it takes him longer. No sensory deficits. Sensorium / Orientation: alert Psych Appearance: unkempt Skin no rashes or lesions noted and skin turgor normal General Skin Exam: Negative for jaundice or pallor MDM MDM MDM Narrative Medical decision making narrative: Patient had blood work done and he does not have a leukocytosis. His hemoglobin is 9.0 which is new since his last blood work in 2019. His Hemoccult was negative however. His BUN is not significantly elevated. He does have an acute kidney injury with a creatinine 2.78. Glucose is elevated at 151 without anion gap. Patient was given a liter of IV fluids. Coagulation studies are normal. Troponin is 40. EKG on my interpretation shows a normal sinus rhythm with a ventricular rate of [address]-T wave changes. Ammonia level was 16. CPK within normal limits. Patient was typed and screened but I do not believe blood transfusion at this time. I asked him again on reevaluation if his weakness in his right leg was new and he stated yes. I stated to him that I noticed in the record that he has a history of stroke and asked him if this was a residual deficit and he also said yes. It is very unclear based on his ability to answer. Since he still having weakness in that leg and anemia. I feel he needs to be admitted. I spoke with Dr. Vallejo who is amenable to seeing him from a GI perspective if there are any issues. I spoke to the hospitalist to admit him for further treatment. Impression: 1. Generalized weakness 2. Mechanical fall 3. Encephalopathy 4. Acute kidney injury 5. Anemia Lab Data Attestation: I reviewed the patient's lab results. Labs: Laboratory Results - last 24 hr 03/04/22 03/04/22 03/04/22 09:15 09:15 09:15 WBC 6.2 RBC 3.20 L Hgb 9.0 L Hct 29.8 L MCV 93.1 MCH 28.1 MCHC 30.2 L RDW Std Deviation 45.9 H RDW Coeff of Ave 13.4 Plt Count 323 MPV 11.1 Immature Gran % (Auto) 0.500 Neut % (Auto) 71.8 H Lymph % (Auto) 20.0 Nance % (Auto) 3.7 Eos % (Auto) 3.2 Baso % (Auto) 0.8 Absolute Neuts (auto) 4.4 Absolute Lymphs (auto) 1.23 Nucleated RBC % 0 PT 13.8 INR 1.1 APTT 27.6 Sodium 136 Potassium 4.6 Chloride 104 Carbon Dioxide 22.0 Anion Gap 10 BUN 19 H Creatinine 2.78 H Estim Creat Clear Calc 26.52 Est GFR (MDRD) Af Amer 30 L Est GFR (MDRD) Non-Af 25 L BUN/Creatinine Ratio 6.8 L Glucose 154 H Calcium 8.6 Ammonia Total Creatine Kinase Troponin I High Sens 40 Ethyl Alcohol POC Glucose Blood Type Antibody Screen 03/04/22 03/04/22 03/04/22 09:15 09:53 10:30 WBC RBC Hgb Hct MCV MCH MCHC RDW Std Deviation RDW Coeff of Ave Plt Count MPV Immature Gran % (Auto) Neut % (Auto) Lymph % (Auto) Nance % (Auto) Eos % (Auto) Baso % (Auto) Absolute Neuts (auto) Absolute Lymphs (auto) Nucleated RBC % PT INR APTT Sodium Potassium Chloride Carbon Dioxide Anion Gap BUN Creatinine Estim Creat Clear Calc Est GFR (MDRD) Af Amer Est GFR (MDRD) Non-Af BUN/Creatinine Ratio Glucose Calcium Ammonia Total Creatine Kinase 132 Troponin I High Sens Ethyl Alcohol POC Glucose 106 Blood Type O POSITIVE Antibody Screen NEGATIVE 03/04/22 03/04/22 10:36 10:36 WBC RBC Hgb Hct MCV MCH MCHC RDW Std Deviation RDW Coeff of Ave Plt Count MPV Immature Gran % (Auto) Neut % (Auto) Lymph % (Auto) Nance % (Auto) Eos % (Auto) Baso % (Auto) Absolute Neuts (auto) Absolute Lymphs (auto) Nucleated RBC % PT INR APTT Sodium Potassium Chloride Carbon Dioxide Anion Gap BUN Creatinine Estim Creat Clear Calc Est GFR (MDRD) Af Amer Est GFR (MDRD) Non-Af BUN/Creatinine Ratio Glucose Calcium Ammonia 16.0 Total Creatine Kinase Troponin I High Sens Ethyl Alcohol < 3.0 POC Glucose Blood Type Antibody Screen Radiography Diagnostic Testing: Clinical Impression(s) from Imaging Studies Brain CT 03/04/22 09:20 IMPRESSION: Chronic involutional changes of the brain. Right cerebellar encephalomalacia unchanged. No acute intracranial process. N.B. : The above Results were Read Back by Carmelo Wallis MD to VANNA Pool, and understanding confirmed on 03/04/2022 10:00:05 (ET). Electronically Signed: Carmelo Wallis MD at 10:00 EDT , ADDENDUM: 03/04/22 1007 IMPRESSION: Chronic involutional changes of the brain. Right cerebellar encephalomalacia unchanged. No acute intracranial process. N.B. : The above Results were Read Back by Carmelo Wallis MD to VANNA Pool, and understanding confirmed on 03/04/2022 10:00:05 (ET). Electronically Signed: Carmelo Wallis MD at 10:00 EDT , Head/Neck CTA 03/04/22 09:20 IMPRESSION: 1. No intracranial great vessel stenosis. 2. Mild atherosclerotic changes in the bulb regions bilaterally and proximal internal carotid artery without significant stenosis. 3. Patent bilateral vertebral arteries without evidence of stenosis. Electronically Signed: Carmelo Wallis MD at 10:41 EDT , Chest X-Ray 03/04/22 09:46 IMPRESSION: No active pulmonary disease. Electronically Signed: Carmelo Wallis MD at 10:43 EDT , Discharge Plan Triage Chief Complaint: Neuro S/Sx ED Provider: Frankie Cruz Dx/Rx/DC Orders Prescriptions: No Action clopidogrel [Plavix] 75 mg tablet 75 mg PO DAILY carvedilol [Coreg] 25 mg tablet 25 mg PO BID furosemide 20 mg tablet 20 mg PO DAILY naproxen 500 mg tablet 500 mg PO DAILY metformin 500 mg tablet 500 mg PO BID lisinopril 20 mg tablet 10 mg PO BID aspirin 81 MG tablet 81 mg PO DAILY@0800 Qty: 90 0RF nitroglycerin 0.4 MG tablet 0.4 mg SUBLINGUAL Q5M PRN (Reason: Chest Pain) Qty: 10 0RF atorvastatin 40 MG tablet 40 mg PO QHS doxepin 50 MG capsule 50 - 100 mg PO QHS insulin lispro 100 unit/mL cartridge 10 unit subcut TID Qty: 0 0RF insulin detemir U-100 100 unit/mL (3 mL) insulin pen 15 unit subcut QHS Qty: 1 0RF Primary Care Provider: Rosario Arroyo Referrals: Rosario Arroyo DO [Primary Care Provider] -
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
[2022-03-04 14:28] LABS: Ferritin 36 ng/mL (26-388); Iron 31 ug/dL (65-175); Iron Binding Capacity,Total 248 ug/dL (250-450); PERCENT IRON SATURATION 12.5 % (15.0-55.0)
[2022-03-04] MEDS: 0.9% Normal Saline 1,000 ML 100 ML IV ×2 (14:34→23:22)
[2022-03-04] MEDS: Glucerna Shake 120 ML LIQUID PO ×2 (15:23→17:46)
[2022-03-04 15:31] LABS: Bedside Glucose 75 mg/dL (74-106)
[2022-03-04 21:45] LABS: Bedside Glucose 133 mg/dL (74-106)
[2022-03-05] VITALS (20 sets, daily range): BP systolic 134–188; BP diastolic 91–127; PULSE 65–114; RESP 14–18; TEMP 36.1–36.7; O2SAT 92–100
[2022-03-05 06:16] LABS: Bedside Glucose 85 mg/dL (74-106)
[2022-03-05 07:00] LABS: Absolute Lymphocyte Count 0.97 X10^3/uL (0.83-4.51); Basophil# 0.02 X10^3/uL; Basophil% 0.3 % (0-1); Eosinophil# 0.22 X10^3/uL; Eosinophils% 2.9 % (0-5); Hematocrit 23.4 % (40-54); Hemoglobin 7.2 g/dL (13.0-16.5); Lymphocyte # 0.97 X10^3/ul (0.83-4.51); Lymphocyte % 12.8 % (19-41); Mean Corp Hgb Conc 30.8 g/dL (32-36); Mean Corpuscular Hgb 28.7 pg (27.0-32.0); Mean Corpuscular Volume 93.2 fL (80-94); Mean Platelet Vol. 10.3 fl (6.2-12.0); Monocyte# 0.35 X10^3/uL; Monocyte% 4.6 % (0-10); NRBC Flagged by Analyzer 0 % (0-5); Neutrophil # 6.01 X10^3/uL (2.7-7.7); Neutrophil % 79.1 % (47-70); Platelet Count 200 K/mm3 (150-450); RBC Distribution Width CV 13.4 % (11.6-14.6); RBC Distribution Width SD 46.1 fl (35.1-43.9); Red Blood Count 2.51 M/mm3 (4.6-6.2); White Blood Count 7.6 K/mm3 (4.4-11.0)
[2022-03-05 08:08] LABS: ALB/GLOB Ratio 0.7 RATIO (0.9-2.4); AST(SGOT) 18 U/L (15-37); Alanine Aminotransfer ALT/SGPT 9 U/L (16-61); Albumin, Serum 2.4 g/dL (3.2-5.0); Alkaline Phosphatase 66 U/L (45-117); Anion Gap 7 (5-15); BUN 20 mg/dL (7-18); BUN/Creat Ratio 7.8 RATIO (10-20); Calcium,Total 7.8 mg/dL (8.5-10.1); Chloride 109 mmol/L (98-107); Creatinine, Serum 2.58 mg/dL (0.70-1.30); EST Glomerular Filtration Rate 27 mL/min (>60); Est Glom Filt Rate - Afr Amer 33 mL/min (>60); Estimated Creatinine Clearance 26.84 ml/min; Globulin 3.3 g/dL (2.2-4.2); Glucose 86 mg/dL (74-106); Potassium 4.4 mmol/L (3.5-5.1); Protein, Total 5.7 g/dL (6.4-8.2); Sodium Level 138 mmol/L (136-145)
[2022-03-05] MEDS: 0.9% Normal Saline 1,000 ML 100 ML IV (09:41)
[2022-03-05] MEDS: Glucerna Shake 120 ML LIQUID PO ×3 (09:43→20:08)
[2022-03-05] MEDS: Ferrous Sulfate 325 MG Tablet PO ×2 (11:12→16:27)
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
[2022-03-05 11:21] LABS: Bedside Glucose 104 mg/dL (74-106)
[2022-03-05 11:53] LABS: Hematocrit 24.1 % (40-54); Hemoglobin 7.3 g/dL (13.0-16.5)
[2022-03-05 16:35] LABS: Bedside Glucose 110 mg/dL (74-106)
[2022-03-05] MEDS: hydrALAZINE 20 MG/ML Vial 5 MG IV ×2 (17:35→22:55)
[2022-03-05] MEDS: 0.9% Saline Lock 10 ML Syringe IV ×2 (17:35→22:55)
[2022-03-05 20:37] LABS: Bedside Glucose 85 mg/dL (74-106)
[2022-03-06] VITALS (9 sets, daily range): BP systolic 104–155; BP diastolic 64–103; PULSE 78–107; RESP 16–18; TEMP 36.4–37.1; O2SAT 97–100
[2022-03-06 06:31] LABS: Absolute Lymphocyte Count 0.78 X10^3/uL (0.83-4.51); Absolute Neutrophil Count 7.8 X10^3/uL (2.0-7.7); Basophil# 0.02 X10^3/uL; Basophil% 0.2 % (0-1); Eosinophil# 0.22 X10^3/uL; Eosinophils% 2.4 % (0-5); Hematocrit 31.8 % (40-54); Hemoglobin 10.1 g/dL (13.0-16.5); Lymphocyte # 0.78 X10^3/ul (0.83-4.51); Lymphocyte % 8.3 % (19-41); Mean Corp Hgb Conc 31.8 g/dL (32-36); Mean Corpuscular Hgb 28.8 pg (27.0-32.0); Mean Corpuscular Volume 90.6 fL (80-94); Mean Platelet Vol. 10.7 fl (6.2-12.0); Monocyte% 5.3 % (0-10); NRBC Flagged by Analyzer 0 % (0-5); Neutrophil # 7.81 X10^3/uL (2.7-7.7); Neutrophil % 83.5 % (47-70); Platelet Count 193 K/mm3 (150-450); RBC Distribution Width CV 13.5 % (11.6-14.6); RBC Distribution Width SD 44.6 fl (35.1-43.9); Red Blood Count 3.51 M/mm3 (4.6-6.2); White Blood Count 9.4 K/mm3 (4.4-11.0)
[2022-03-06 06:51] LABS: Bedside Glucose 84 mg/dL (74-106)
[2022-03-06 07:09] LABS: Anion Gap 7 (5-15); BUN 27 mg/dL (7-18); BUN/Creat Ratio 11.5 RATIO (10-20); Calcium,Total 7.8 mg/dL (8.5-10.1); Chloride 108 mmol/L (98-107); Creatinine, Serum 2.35 mg/dL (0.70-1.30); EST Glomerular Filtration Rate 30 mL/min (>60); Est Glom Filt Rate - Afr Amer 36 mL/min (>60); Estimated Creatinine Clearance 30.96 ml/min; Glucose 97 mg/dL (74-106); Potassium 4.5 mmol/L (3.5-5.1); Sodium Level 137 mmol/L (136-145)
[2022-03-06] MEDS: Glucerna Shake 120 ML LIQUID PO ×4 (08:21→23:36)
[2022-03-06] MEDS: Aspirin E.C. 81 MG Tablet PO (09:56)
[2022-03-06] MEDS: Carvedilol 25 MG Tablet PO ×2 (09:56→23:33)
[2022-03-06] MEDS: Clopidogrel Bisulfate 75 MG Tablet PO (09:56)
[2022-03-06 11:30] LABS: Bedside Glucose 148 mg/dL (74-106)
[2022-03-06] MEDS: Ferrous Sulfate 325 MG Tablet PO ×2 (11:38→17:19)
--- NOTE | 2022-03-06 12:34 | PN.HOSP_ITS ---
Subjective Subjective Patient seen and examined. Patient lying in bed no distress noted. Objective Data Objective Data Vital Signs: Vital Signs Temp Pulse Resp BP Pulse Ox 98.8 F 85 18 143/92 H 100 03/06/22 11:35 03/06/22 11:35 03/06/22 11:35 03/06/22 11:35 03/06/22 11:35 Oxygen Flow Rate (L/min) 2 Oxygen Delivery Method Room Air Weight: 146 lb 2.664 oz Body Mass Index (BMI) 18.3 Intake & Output: Intake and Output for Last 24 Hours 03/04/22 03/05/22 03/06/22 23:59 23:59 23:59 Intake Total 2470 / 2690 3695 / 3695 480 / 480 Output Total 550 / 1125 575 / 575 Balance 2470 / 2690 3145 / 2570 -95 / -95 Medical Nutrition Assessment Dietitian: Malnutrition Criteria Met Start: 03/05/22 09:07 Freq: Status: Active Protocol: Document 03/05/22 15:02 RMA (Rec: 03/05/22 15:02 RMA [id number]) Nutrition Malnutrition Evidence of Malnutrition Exists Yes Malnutrition (severe): Chronic Evidenced By Suboptimal Energy Intake ( Severe),Weight Loss (Severe), Physical Changes (Moderate), Physical Changes (Severe) Clinical Problem Chronic Disease or Condition Related Malnutrition Etiology Severe protein-calorie malnutrition in the context of chronic disease and debility/ confusion related to inadequate oral intake Signs/Symptoms as evidenced by ~8-10% wt loss x past 6 months, BMI 19.3, PO meeting less than 50% estimated nutrition needs, poor intake at meals since admit/taking less than 50% and moderate muscle/fat wasting in the face, neck, orbital and clavicle Status Active Problem Recommendation Dietitian Recommendations/Changes In view of malnutrition criteria, will liberalize diet to Regular in an effort to encourage improved oral intake at meals. Will continue glucerna shake with medpass as ordered. Will add ensure pudding BID w/ lunch and dinner. May need to consider enteral nutrition support if PO fails at meals. Lab / Micro Data Result Diagrams: 03/06/22 06:10 03/06/22 06:10 Labs: Laboratory Results - last 24 hr 03/04/22 10:30: Crossmatch See Detail 03/05/22 16:23: POC Glucose 110 H 03/05/22 20:07: POC Glucose 85 03/06/22 06:10: WBC 9.4, RBC 3.51 L, Hgb 10.1 L, Hct 31.8 L, MCV 90.6, MCH 28.8, MCHC 31.8 L, RDW Std Deviation 44.6 H, RDW Coeff of Ave 13.5, Plt Count 193, MPV 10.7, Immature Gran % (Auto) 0.300, Neut % (Auto) 83.5 H, Lymph % (Auto) 8.3 L, Pope % (Auto) 5.3, Eos % (Auto) 2.4, Baso % (Auto) 0.2, Absolute Neuts (auto) 7.8 H, Absolute Lymphs (auto) 0.78 L, Nucleated RBC % 0 03/06/22 06:10: Sodium 137, Potassium 4.5, Chloride 108 H, Carbon Dioxide 22.0, Anion Gap 7, BUN 27 H, Creatinine 2.35 H, Estim Creat Clear Calc 30.96, Est GFR (MDRD) Af Amer 36 L, Est GFR (MDRD) Non-Af 30 L, BUN/Creatinine Ratio 11.5, Glucose 97, Calcium 7.8 L 03/06/22 06:30: POC Glucose 84 03/06/22 11:27: POC Glucose 148 H Micro: Microbiology 03/04/22 10:28 Stool Stool Occult Blood (DANTE) - Final Physical Exam Const alert General Appearance: cooperative and disheveled Orientation / Consciousness: oriented to person, oriented to place and disoriented HEENT normocephalic and head/scalp atraumatic Eyes conjunctivae normal and no scleral icterus Neck supple General: trachea midline Lymph Lymphatic: no lymphadenopathy noted Resp normal respiratory effort, normal air movement and clear to auscultation bilaterally Cardio regular rate, regular rhythm, S1 normal heart sound, S2 normal heart sound and peripheral pulses 2+ throughout GI normal to inspection, nondistended, normoactive bowel sounds, soft to palpation and non-tender Extremity normal capillary refill and no clubbing, cyanosis or edema Skin General Skin Exam: no breakdown Lesions: no lesions Rashes: no rashes Neuro moves all extremities Neuro Narrative: Right leg slightly weaker than the left leg Psych cooperative Assessment & Plan Assessment/Plan (1) Altered mental status: PLAN: Plan 1. Altered mental status -Brain CT and head neck CTA negative for acute findings -CBC and BMP daily -PT and OT to eval and treat -Dysphagia screen x1 -Vital signs and NIH per protocol 2. Anemia -Patient has no obvious signs or symptoms of bleeding -Patient received 2 units packed red blood cells 03/05/22 hemoglobin today 10.1 -Stool occult negative -CBC daily -Iron 31, TIBC 248, Iron Sat 12.5, Ferritin 36 -Patient initiated on Ferrous Sulfate 325mg BIDCM on 03/05/2022 3. Hypertension -Vital signs per protocol -Patient is unable to tell me what medications he currently takes and if he is actually taking his medications at home. Patient has a history of noncompliance with medication regimen. -Will contact [facility] when open to obtain medication list 4. Diabetes mellitus type 2 -ACH S blood sugars with sliding scale insulin ordered -Unclear as to whether patient has been taking his medications at home however upon arrival patient was hyperglycemic 5. CAD -History of stent in 2019 6. History of CVA -Patient noncompliant with meds at home is unclear if patient has been taking antiplatelet therapy Discharge plan-patient will need SNF placement DVT prophylaxis-SCDs This patient was seen by Hyacinth Nunes NP-Darrian under the supervision of Dr. Ana juárez. 13 minutes spent in clinical coordination of patient's plan of care.
--- NOTE | 2022-03-06 14:56 | CASEMGMT ---
SW called patient's brother, Kyle as patient is somewhat confused. SW introduced self and role at [facility]. SW explained patient will need to go somewhere for rehab at discharge. Kyle said he does not know. He said he is taking care of their mom right now. Kyle said SW should talk with patient about this. SW met with patient. Introduced self and role at [facility]. SW told patient it is being recommended he go somewhere for rehab. SW provided patient with a list of SNF providers including quality and resource use data and consistent with the patient?s preferred geographic region, medical needs, and insurance network. Patient just stared at SW. SW showed patient the facilities that [place] of [place] so he would be closer to his brother. Patient was in agreement with referrals being made to [facility] and [facility]. KAREN notified d/c planning division superintendent Camilla who will make referrals. Julinae Holt VIDEO GAMES STORYWRITER JACKY
--- NOTE | 2022-03-06 15:21 | CASEMGMT ---
Discharge Chemical Analyst Called Christie at [facility]. Beds are available. Faxed over referral. Emailed Swetha at [facility]. Beds are available. Faxed over referral. Will follow up. Camilla Alston Discharge Chemical Analyst
--- NOTE | 2022-03-06 16:15 | CASEMGMT ---
Discharge Chief Operator Reformer Swetha reached out via email. [facility] can accept patient. Swetha will go ahead and start Pre-cert Camilla Alston Discharge Chief Operator Reformer
--- NOTE | 2022-03-06 16:43 | CASEMGMT ---
[facility] is able to take patient and Swetha will start pre-cert. KAREN will notify patient tomorrow. Plan: [facility] pending pre-cert. Juliane RICO
[2022-03-06 17:06] LABS: Bedside Glucose 107 mg/dL (74-106)
[2022-03-06] MEDS: Atorvastatin Calcium 40 MG Tablet PO (23:34)
[2022-03-06] MEDS: 0.9% Saline Lock 10 ML Syringe IV (23:36)
[2022-03-07 00:30] LABS: Bedside Glucose 85 mg/dL (74-106)
[2022-03-07 03:00] VITALS: PULSE 73
[2022-03-07 05:28] VITALS: BP 101/65; PULSE 72; RESP 18; TEMP 36.5; O2SAT 100
[2022-03-07 06:40] LABS: Bedside Glucose 85 mg/dL (74-106)
[2022-03-07 06:42] LABS: Absolute Lymphocyte Count 0.89 X10^3/uL (0.83-4.51); Absolute Neutrophil Count 4.2 X10^3/uL (2.0-7.7); Basophil# 0.02 X10^3/uL; Basophil% 0.3 % (0-1); Eosinophil# 0.28 X10^3/uL; Eosinophils% 4.8 % (0-5); Hematocrit 26.2 % (40-54); Hemoglobin 8.5 g/dL (13.0-16.5); Lymphocyte # 0.89 X10^3/ul (0.83-4.51); Lymphocyte % 15.4 % (19-41); Mean Corp Hgb Conc 32.4 g/dL (32-36); Mean Corpuscular Hgb 28.8 pg (27.0-32.0); Mean Corpuscular Volume 88.8 fL (80-94); Mean Platelet Vol. 10.6 fl (6.2-12.0); Monocyte# 0.42 X10^3/uL; Monocyte% 7.3 % (0-10); NRBC Flagged by Analyzer 0 % (0-5); Neutrophil # 4.16 X10^3/uL (2.7-7.7); Platelet Count 148 K/mm3 (150-450); RBC Distribution Width CV 13.9 % (11.6-14.6); RBC Distribution Width SD 45.2 fl (35.1-43.9); Red Blood Count 2.95 M/mm3 (4.6-6.2); White Blood Count 5.8 K/mm3 (4.4-11.0)
[2022-03-07 07:11] LABS: Anion Gap 8 (5-15); BUN 32 mg/dL (7-18); BUN/Creat Ratio 14.5 RATIO (10-20); Calcium,Total 7.7 mg/dL (8.5-10.1); Chloride 107 mmol/L (98-107); Creatinine, Serum 2.21 mg/dL (0.70-1.30); EST Glomerular Filtration Rate 32 mL/min (>60); Est Glom Filt Rate - Afr Amer 39 mL/min (>60); Estimated Creatinine Clearance 33.51 ml/min; Glucose 96 mg/dL (74-106); Potassium 4.2 mmol/L (3.5-5.1); Sodium Level 138 mmol/L (136-145)
[2022-03-07 07:17] VITALS: PULSE 70
[2022-03-07] MEDS: Glucerna Shake 120 ML LIQUID PO (09:27)
[2022-03-07] MEDS: Aspirin E.C. 81 MG Tablet PO (09:27)
[2022-03-07] MEDS: Clopidogrel Bisulfate 75 MG Tablet PO (09:28)
[2022-03-07] MEDS: Carvedilol 25 MG Tablet PO (09:28)
[2022-03-07 09:29] VITALS: BP 119/86; PULSE 77; RESP 15; TEMP 36.6; O2SAT 99
--- NOTE | 2022-03-07 10:46 | CASEMGMT ---
Discharge Photoengraving Photographer Swetha from [facility] got pre-cert back. Patient can go when medically ready. Juliane notified. Camilla Alston Discharge Photoengraving Photographer
--- NOTE | 2022-03-07 10:52 | PCM.TXEXTCAR ---
Diet 03/05/22 15:02 Diet: Regular - General Food consistency:: Regular Liquid Consistency:: Regular/Thin Type of Dietary Supplement:: Ensure Pudding Is pt able to select menu?: No Diet Comments: ensure pudding BID w/ lunch and dinner Routine Orders/Code Status Enema Type: Fleetz Enema Frequency: Daily PRN Suppository Type: Dulcolax 10mg Suppository Frequency: Daily PRN Routine Lab Work: CBC (1 week) and BMP (1 week) Code Status: DNRCC-A (no intubation) Wound(s) right elbow: Wound Type: Pressure Injury right hip: Wound Type: Pressure Injury Suggestions for Active Care Change Position every (hours): 2 Times a day to sit in chair: 3 Therapies Physical Therapy: Eval and Treat Occupational Therapy: Eval and Treat Speech Therapy: Eval and Treat Problem/Diagnosis (1) Altered mental status: Status: Acute Allergies/Procedures Done in Hospital Allergies ampicillin Allergy (Verified 11/22/21 14:00) Swelling ibuprofen [From Motrin] Allergy (Verified 11/22/21 14:00) Swelling SEA FOOD Allergy (Uncoded 11/22/21 14:00) Swelling Procedures: None Type of Care/Length of Stay Estimated LOS: Convalescent Care Less Than 30 days Type of Care Needed: Skilled Rehab Potential: Poor Prognosis: Poor Additional Orders/Day of Discharge Day of Discharge: 03/07/22 Dietary and Speech Recommendations Dietitian Recommendations/Changes: In view of malnutrition criteria, will liberalize diet to Regular in an effort to encourage improved oral intake at meals. Will continue glucerna shake with medpass as ordered. Will add ensure pudding BID w/ lunch and dinner. May need to consider enteral nutrition support if PO fails at meals. Discharge Plan Admission Admit Date/Time: 03/04/22 12:10 Primary Reason for Your Visit: Debility, Failure to thrive, AMS Attending Provider: Jeremy Toney Primary Care Provider: Rosario Arroyo Discharge Orders/Prescriptions Prescriptions: New aspirin 81 mg Tablet,Delayed Release (Dr/Ec) 81 mg PO DAILY@0800 Qty: 0 0RF atorvastatin 40 mg Tablet 40 mg PO QHS Qty: 0 0RF doxepin 50 mg Capsule 100 mg PO QHS PRN (Reason: Sleep) Qty: 0 0RF carvedilol 25 mg Tablet 25 mg PO BID Qty: 0 0RF lisinopril 20 mg Tablet 10 mg PO BID Qty: 0 0RF isosorbide mononitrate 30 mg Tablet Extended Release 24 Hr 30 mg PO DAILY Qty: 0 0RF clopidogrel 75 mg Tablet 75 mg PO DAILY Qty: 0 0RF ferrous sulfate [FeroSul] 325 mg (65 mg iron) Tablet 325 mg PO 1200,1700 Qty: 0 0RF nitroglycerin 0.4 mg Tablet, Sublingual 0.4 mg sublingual Q5M PRN (Reason: Chest Pain) Qty: 0 0RF furosemide 20 mg Tablet 20 mg PO DAILY Qty: 0 0RF Cyanocobalamin (Vitamin B-12) 1,000 mcg PO DAILY Qty: 0 0RF Ergocalciferol (Vitamin D2) 50,000 unit PO SA Qty: 0 0RF Glucerna 1.2 Hiram 0.06-1.2 gram-kcal/mL Liquid 120 ml PO 4X/DAY Qty: 0 0RF Discontinued clopidogrel [Plavix] 75 mg tablet 75 mg PO DAILY carvedilol [Coreg] 25 mg tablet 25 mg PO BID furosemide 20 mg tablet 20 mg PO DAILY naproxen 500 mg tablet 500 mg PO BID lisinopril 20 mg tablet 10 mg PO BID nitroglycerin 0.4 MG tablet 0.4 mg SUBLINGUAL Q5M PRN (Reason: Chest Pain) Qty: 10 0RF atorvastatin 40 MG tablet 40 mg PO QHS doxepin 50 MG capsule 100 mg PO QHS PRN (Reason: Sleep) tizanidine 4 mg Tablet 4 mg PO Q8H PRN (Reason: Muscle Pain) isosorbide mononitrate 30 mg Tablet Extended Release 24 Hr 30 mg PO DAILY cyanocobalamin (vitamin B-12) 1,000 mcg Tablet 1,000 mcg PO DAILY Vitamin D2 25,000 unit Capsule 50,000 unit PO SA oxycodone 15 mg Tablet, Oral Only 15 mg PO Q6H PRN (Reason: Pain) Levemir Flexpen 100 unit/mL (3 mL) Insulin Pen 10 unit SUBCUT QHS No Action aspirin 81 MG tablet 81 mg PO DAILY@0800 Qty: 90 0RF Referrals / Follow Up: Rosario Arroyo, [Primary Care Provider] - Disposition Disposition (needs filled in before D/C Order can be placed): Residential Facility
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
--- NOTE | 2022-03-07 11:28 | PHA.DC.MR ---
Pharmacy Service has performed discharge medication reconciliation for this patient. The patient's discharge medication list was reviewed for discrepancies and discrepancies were resolved. Spoke to oni Ford to d/c duplicate aspirin orders. Home Medications aspirin 81 mg tablet,delayed release 81 mg PO DAILY@0800 #0 tabs 03/07/22 atorvastatin 40 mg tablet 40 mg PO QHS #0 tabs 03/07/22 carvedilol 25 mg tablet 25 mg PO BID #0 tabs 03/07/22 clopidogrel 75 mg tablet 75 mg PO DAILY #0 tabs 03/07/22 cyanocobalamin (vitamin B-12) 1,000 mcg PO DAILY ##0 03/07/22 doxepin 50 mg capsule 100 mg PO QHS PRN Sleep #0 caps 03/07/22 ergocalciferol (vitamin D2) 50,000 unit PO SA ##0 03/07/22 ferrous sulfate 325 mg (65 mg iron) tablet (FeroSul) 325 mg PO 1200,1700 #0 tabs 03/07/22 furosemide 20 mg tablet 20 mg PO DAILY #0 tabs 03/07/22 isosorbide mononitrate 30 mg tablet,extended release 24 hr 30 mg PO DAILY #0 tabs 03/07/22 lisinopril 20 mg tablet 10 mg PO BID #0 tabs 03/07/22 nitroglycerin 0.4 mg sublingual tablet 0.4 mg sublingual Q5M PRN Chest Pain #0 tabs 03/07/22 nutrition tx glu intol,lac-free,soy-fiber 0.06 gram-1.2 kcal/mL liquid (Glucerna 1.2 Hiram) 120 ml PO 4X/DAY #0 mL 03/07/22
--- NOTE | 2022-03-07 11:52 | CASEMGMT ---
Patient was approved to go to [facility]. KAREN spoke with patient and let him know. Patient was in agreement. KAREN let patient know SW will notify his brother. KAREN called patient's brother Kyle and let him know patient will go to [facility] today. KAREN arranged for patient to get picked up 2p via cot. KAREN notified d/c manager financial planning who notified RN, front office secretary, and Swetha. All in agreement with discharge plan. KAREN completed 7000 in [facility]. Plan: d/c to [facility] under skilled level of care on a convalescent stay. Physicians will transport via cot. Juliane RICO
[2022-03-07] MEDS: Ferrous Sulfate 325 MG Tablet PO (12:06)
[2022-03-07 12:20] LABS: Bedside Glucose 126 mg/dL (74-106)
[2022-03-07 13:29] VITALS: BP 118/76; PULSE 75; RESP 14; TEMP 36.6; O2SAT 98
--- NOTE | 2022-03-07 13:46 | NURSING ---
report called to Jinny PRABHAKAR at [facility]
== END 2022-03-07 14:25 | disposition skilled nursing facility (03) | DRG 947 ==
LOC: ED 12:12 → PCU 13:04
PROVIDERS: Nurse Practitioner Family; Admitting Provider Family Medicine; Emergency Provider Student in an Organized Health Care Education/Training Program; PCP Family Medicine; Visit Provider Family Medicine
DX: R41.82 Altered mental status, unspecified (principal); E43 Unspecified severe protein-calorie malnutrition; Z68.1 Body mass index [BMI] 19.9 or less, adult; R62.7 Adult failure to thrive; E11.65 Type 2 diabetes mellitus with hyperglycemia; D50.9 Iron deficiency anemia, unspecified; E78.00 Pure hypercholesterolemia, unspecified; Z79.4 Long term (current) use of insulin; I69.341 Monoplegia of lower limb following cerebral infarction affecting right dominant side; F17.220 Nicotine dependence, chewing tobacco, uncomplicated; I10 Essential (primary) hypertension; I25.10 Atherosclerotic heart disease of native coronary artery without angina pectoris; R53.1 Weakness; Z79.82 Long term (current) use of aspirin; Z79.02 Long term (current) use of antithrombotics/antiplatelets; R53.81 Other malaise; Z79.899 Other long term (current) drug therapy
CPT/HCPCS: 36415; 70450; 70496; 70498; 71045; 80048; 80053; 82077; 82140; 82274; 82550; 82728; 82962; 83540; 83550; 84484; 85014; 85018; 85025; 85610; 85730; 86850; 86900; 86901; 86920; 86922; 87426; 93005; 97162; 97166; 97802; 99285; J7030; J7040; J7050; P9016; P9040; Q9967; A4216; J2916

== ENCOUNTER → 2022-03-14 | Outpatient (REF) | payer SELFPAY ==
[2019-02-26 13:57] VITALS: BMI 24.9
[2022-03-14 08:31] LABS: Hematocrit 26.6 % (40-54); Mean Corp Hgb Conc 30.1 g/dL (32-36); Mean Corpuscular Hgb 28.8 pg (27.0-32.0); Mean Corpuscular Volume 95.7 fL (80-94); Mean Platelet Vol. 11.3 fl (6.2-12.0); Platelet Count 241 K/mm3 (150-450); RBC Distribution Width CV 14.9 % (11.6-14.6); RBC Distribution Width SD 51.6 fl (35.1-43.9); Red Blood Count 2.78 M/mm3 (4.6-6.2); White Blood Count 5.4 K/mm3 (4.4-11.0)
[2022-03-14 08:36] LABS: Anion Gap 6 (5-15); BUN 56 mg/dL (7-18); Calcium,Total 8.5 mg/dL (8.5-10.1); Chloride 108 mmol/L (98-107); Creatinine, Serum 2.55 mg/dL (0.70-1.30); EST Glomerular Filtration Rate 27 mL/min (>60); Est Glom Filt Rate - Afr Amer 33 mL/min (>60); Glucose 95 mg/dL (74-106); Potassium 4.8 mmol/L (3.5-5.1); Sodium Level 140 mmol/L (136-145)
[2022-03-15 05:23] LABS: ALB/GLOB Ratio 0.9 RATIO (0.9-2.4); AST(SGOT) 19 U/L (15-37); Alanine Aminotransfer ALT/SGPT 15 U/L (16-61); Albumin, Serum 2.5 g/dL (3.2-5.0); Alkaline Phosphatase 61 U/L (45-117); Cholesterol 90 mg/dL (200); Globulin 2.9 g/dL (2.2-4.2); High Density Lipoprotein 38 mg/dL; Protein, Total 5.4 g/dL (6.4-8.2); Triglycerides 36 mg/dL; Very Low Density Lipoprotein 7 mg/dL (5-40)
== END | disposition home or self-care (01) ==
LOC: OLS.SW1020 05:00
PROVIDERS: PCP Family Medicine; Visit Provider Family Medicine
DX: I10 Essential (primary) hypertension (principal); E11.9 Type 2 diabetes mellitus without complications; E78.5 Hyperlipidemia, unspecified
CPT/HCPCS: 36415; 80048; 80061; 82040; 82247; 83036; 84075; 84156; 84450; 84460; 85027

== ENCOUNTER → 2022-03-28 | Outpatient (REF) | payer MEDICARE, MEDICAID, SELFPAY ==
[2019-02-26 13:57] VITALS: BMI 24.9
[2022-03-28 08:59] LABS: Hematocrit 29.8 % (40-54); Hemoglobin 9.2 g/dL (13.0-16.5); Mean Corp Hgb Conc 30.9 g/dL (32-36); Mean Corpuscular Hgb 29.4 pg (27.0-32.0); Mean Corpuscular Volume 95.2 fL (80-94); Mean Platelet Vol. 10.9 fl (6.2-12.0); Platelet Count 245 K/mm3 (150-450); RBC Distribution Width SD 59.1 fl (35.1-43.9); Red Blood Count 3.13 M/mm3 (4.6-6.2); White Blood Count 6.8 K/mm3 (4.4-11.0)
[2022-03-28 09:16] LABS: AST(SGOT) 8 U/L (15-37); Alanine Aminotransfer ALT/SGPT 14 U/L (16-61); Alkaline Phosphatase 67 U/L (45-117); Anion Gap 7 (5-15); BUN 53 mg/dL (7-18); BUN/Creat Ratio 22.4 RATIO (10-20); Calcium,Total 8.4 mg/dL (8.5-10.1); Chloride 109 mmol/L (98-107); Creatinine, Serum 2.37 mg/dL (0.70-1.30); EST Glomerular Filtration Rate 30 mL/min (>60); Est Glom Filt Rate - Afr Amer 36 mL/min (>60); Glucose 91 mg/dL (74-106); Potassium 4.7 mmol/L (3.5-5.1); Sodium Level 141 mmol/L (136-145)
== END | disposition home or self-care (01) ==
LOC: OLS.SW500 04:00
PROVIDERS: PCP Family Medicine; Visit Provider Family Medicine
DX: E11.9 Type 2 diabetes mellitus without complications (principal); D64.9 Anemia, unspecified
CPT/HCPCS: 36415; 80053; 85027

== ENCOUNTER 2022-04-05 08:00 | Outpatient (REF) | payer MEDICARE, MEDICAID, SELFPAY ==
[2019-02-26 13:57] VITALS: BMI 24.9
[2022-04-05 09:52] LABS: Vitamin B12 371 pg/mL (211-911); Vitamin D,25 Hydroxy 46.4 ng/mL
== END 2022-04-05 23:59 | disposition home or self-care (01) ==
LOC: OLS.SW500 08:00
PROVIDERS: PCP Family Medicine; Visit Provider Family Medicine
DX: D64.9 Anemia, unspecified (principal); F33.9 Major depressive disorder, recurrent, unspecified; E55.9 Vitamin D deficiency, unspecified
CPT/HCPCS: 36415; 82306; 82607

== ENCOUNTER → 2022-04-11 | Outpatient (REF) | payer MEDICARE, MEDICAID, SELFPAY ==
[2019-02-26 13:57] VITALS: BMI 24.9
[2022-04-11 09:02] LABS: Hemoglobin 10.2 g/dL (13.0-16.5); Mean Corp Hgb Conc 30.9 g/dL (32-36); Mean Corpuscular Hgb 29.8 pg (27.0-32.0); Mean Corpuscular Volume 96.5 fL (80-94); Mean Platelet Vol. 11.2 fl (6.2-12.0); Platelet Count 171 K/mm3 (150-450); RBC Distribution Width CV 15.9 % (11.6-14.6); RBC Distribution Width SD 56.7 fl (35.1-43.9); Red Blood Count 3.42 M/mm3 (4.6-6.2); White Blood Count 7.8 K/mm3 (4.4-11.0)
[2022-04-11 09:25] LABS: ALB/GLOB Ratio 1.1 RATIO (0.9-2.4); AST(SGOT) 11 U/L (15-37); Alanine Aminotransfer ALT/SGPT 13 U/L (16-61); Albumin, Serum 3.2 g/dL (3.2-5.0); Alkaline Phosphatase 66 U/L (45-117); Anion Gap 6 (5-15); BUN 60 mg/dL (7-18); BUN/Creat Ratio 24.6 RATIO (10-20); Calcium,Total 8.5 mg/dL (8.5-10.1); Chloride 107 mmol/L (98-107); Creatinine, Serum 2.44 mg/dL (0.70-1.30); EST Glomerular Filtration Rate 29 mL/min (>60); Est Glom Filt Rate - Afr Amer 35 mL/min (>60); Glucose 87 mg/dL (74-106); Potassium 4.8 mmol/L (3.5-5.1); Protein, Total 6.2 g/dL (6.4-8.2); Sodium Level 139 mmol/L (136-145)
== END | disposition home or self-care (01) ==
LOC: OLS.SW500 05:00
PROVIDERS: PCP Family Medicine; Visit Provider Family Medicine
DX: D64.9 Anemia, unspecified (principal); E11.9 Type 2 diabetes mellitus without complications
CPT/HCPCS: 36415; 80053; 85027

== ENCOUNTER → 2022-04-25 | Outpatient (REF) | payer MEDICARE, MEDICAID, SELFPAY ==
[2019-02-26 13:57] VITALS: BMI 24.9
[2022-04-25 08:20] LABS: Hematocrit 30.9 % (40-54); Hemoglobin 10.1 g/dL (13.0-16.5); Mean Corp Hgb Conc 32.7 g/dL (32-36); Mean Corpuscular Hgb 30.9 pg (27.0-32.0); Mean Corpuscular Volume 94.5 fL (80-94); Platelet Count 196 K/mm3 (150-450); RBC Distribution Width CV 15.8 % (11.6-14.6); Red Blood Count 3.27 M/mm3 (4.6-6.2); White Blood Count 6.2 K/mm3 (4.4-11.0)
[2022-04-25 08:36] LABS: AST(SGOT) 11 U/L (15-37); Alanine Aminotransfer ALT/SGPT 14 U/L (16-61); Alkaline Phosphatase 62 U/L (45-117); Anion Gap 5 (5-15); BUN 50 mg/dL (7-18); BUN/Creat Ratio 19.8 RATIO (10-20); Calcium,Total 8.2 mg/dL (8.5-10.1); Chloride 108 mmol/L (98-107); Creatinine, Serum 2.53 mg/dL (0.70-1.30); EST Glomerular Filtration Rate 28 mL/min (>60); Est Glom Filt Rate - Afr Amer 33 mL/min (>60); Globulin 3.1 g/dL (2.2-4.2); Glucose 88 mg/dL (74-106); Protein, Total 6.1 g/dL (6.4-8.2); Sodium Level 140 mmol/L (136-145)
== END ==
LOC: OLS.SW500 05:00
PROVIDERS: PCP Family Medicine; Visit Provider Family Medicine
DX: D64.9 Anemia, unspecified (principal); E11.9 Type 2 diabetes mellitus without complications
CPT/HCPCS: 36415; 80053; 85027

== ENCOUNTER → 2022-05-01 | Outpatient (REF) | payer MEDICARE, MEDICAID, SELFPAY ==
[2019-02-26 13:57] VITALS: BMI 24.9
[2022-05-01 09:22] LABS: Anion Gap 7 (5-15); BUN 45 mg/dL (7-18); BUN/Creat Ratio 19.9 RATIO (10-20); Calcium,Total 8.1 mg/dL (8.5-10.1); Chloride 112 mmol/L (98-107); Creatinine, Serum 2.26 mg/dL (0.70-1.30); EST Glomerular Filtration Rate 32 mL/min (>60); Est Glom Filt Rate - Afr Amer 38 mL/min (>60); Glucose 90 mg/dL (74-106); Potassium 4.7 mmol/L (3.5-5.1); Sodium Level 142 mmol/L (136-145)
== END ==
LOC: OLS.SW500 05:00
PROVIDERS: PCP Family Medicine; Visit Provider Family Medicine
DX: I10 Essential (primary) hypertension (principal)
CPT/HCPCS: 36415; 80048

== ENCOUNTER → 2022-05-08 | Outpatient (REF) | payer MEDICARE, MEDICAID, SELFPAY ==
[2019-02-26 13:57] VITALS: BMI 24.9
[2022-05-08 09:04] LABS: Anion Gap 4 (5-15); BUN 45 mg/dL (7-18); BUN/Creat Ratio 18.9 RATIO (10-20); Calcium,Total 8.9 mg/dL (8.5-10.1); Chloride 111 mmol/L (98-107); Creatinine, Serum 2.38 mg/dL (0.70-1.30); EST Glomerular Filtration Rate 30 mL/min (>60); Est Glom Filt Rate - Afr Amer 36 mL/min (>60); Glucose 99 mg/dL (74-106); Potassium 4.8 mmol/L (3.5-5.1); Sodium Level 140 mmol/L (136-145)
== END ==
LOC: OLS.SW500 05:00
PROVIDERS: PCP Family Medicine; Visit Provider Family Medicine
DX: I10 Essential (primary) hypertension (principal)
CPT/HCPCS: 36415; 80048

== ENCOUNTER → 2022-05-09 | Outpatient (REF) | payer MEDICARE, MEDICAID, SELFPAY ==
[2019-02-26 13:57] VITALS: BMI 24.9
[2022-05-09 08:19] LABS: Hematocrit 33.2 % (40-54); Hemoglobin 10.9 g/dL (13.0-16.5); Mean Corp Hgb Conc 32.8 g/dL (32-36); Mean Corpuscular Hgb 30.7 pg (27.0-32.0); Mean Corpuscular Volume 93.5 fL (80-94); Mean Platelet Vol. 10.7 fl (6.2-12.0); Platelet Count 201 K/mm3 (150-450); RBC Distribution Width CV 15.4 % (11.6-14.6); RBC Distribution Width SD 53.4 fl (35.1-43.9); Red Blood Count 3.55 M/mm3 (4.6-6.2); White Blood Count 7.2 K/mm3 (4.4-11.0)
[2022-05-09 08:51] LABS: AST(SGOT) 16 U/L (15-37); Alanine Aminotransfer ALT/SGPT 16 U/L (16-61); Albumin, Serum 3.1 g/dL (3.2-5.0); Alkaline Phosphatase 66 U/L (45-117); Anion Gap 8 (5-15); BUN 43 mg/dL (7-18); BUN/Creat Ratio 17.9 RATIO (10-20); Calcium,Total 8.3 mg/dL (8.5-10.1); Chloride 110 mmol/L (98-107); EST Glomerular Filtration Rate 29 mL/min (>60); Est Glom Filt Rate - Afr Amer 36 mL/min (>60); Globulin 3.1 g/dL (2.2-4.2); Glucose 87 mg/dL (74-106); Potassium 4.7 mmol/L (3.5-5.1); Protein, Total 6.2 g/dL (6.4-8.2); Sodium Level 139 mmol/L (136-145)
== END ==
LOC: OLS.SW500 05:00
PROVIDERS: PCP Family Medicine; Visit Provider Family Medicine
DX: E11.9 Type 2 diabetes mellitus without complications (principal); D64.9 Anemia, unspecified
CPT/HCPCS: 36415; 80053; 85027

== ENCOUNTER → 2022-05-15 | Outpatient (REF) | payer MEDICARE, MEDICAID, SELFPAY ==
[2019-02-26 13:57] VITALS: BMI 24.9
[2022-05-15 09:20] LABS: Anion Gap 7 (5-15); BUN 49 mg/dL (7-18); BUN/Creat Ratio 17.7 RATIO (10-20); Calcium,Total 8.5 mg/dL (8.5-10.1); Chloride 109 mmol/L (98-107); Creatinine, Serum 2.77 mg/dL (0.70-1.30); EST Glomerular Filtration Rate 25 mL/min (>60); Est Glom Filt Rate - Afr Amer 30 mL/min (>60); Glucose 88 mg/dL (74-106); Potassium 4.8 mmol/L (3.5-5.1); Sodium Level 141 mmol/L (136-145)
== END ==
LOC: OLS.SW500 05:00
PROVIDERS: PCP Family Medicine; Visit Provider Family Medicine
DX: I10 Essential (primary) hypertension (principal); G93.40 Encephalopathy, unspecified
CPT/HCPCS: 36415; 80048

== ENCOUNTER → 2022-05-23 | Outpatient (REF) | payer MEDICARE, MEDICAID, SELFPAY ==
[2019-02-26 13:57] VITALS: BMI 24.9
[2022-05-23 09:28] LABS: Hematocrit 33.8 % (40-54); Hemoglobin 10.7 g/dL (13.0-16.5); Mean Corp Hgb Conc 31.7 g/dL (32-36); Mean Corpuscular Hgb 29.6 pg (27.0-32.0); Mean Corpuscular Volume 93.6 fL (80-94); Mean Platelet Vol. 10.8 fl (6.2-12.0); Platelet Count 249 K/mm3 (150-450); RBC Distribution Width CV 14.6 % (11.6-14.6); RBC Distribution Width SD 50.4 fl (35.1-43.9); Red Blood Count 3.61 M/mm3 (4.6-6.2); White Blood Count 7.6 K/mm3 (4.4-11.0)
[2022-05-23 09:44] LABS: ALB/GLOB Ratio 0.9 RATIO (0.9-2.4); AST(SGOT) 14 U/L (15-37); Alanine Aminotransfer ALT/SGPT 18 U/L (16-61); Albumin, Serum 3.1 g/dL (3.2-5.0); Alkaline Phosphatase 97 U/L (45-117); Anion Gap 7 (5-15); BUN 61 mg/dL (7-18); BUN/Creat Ratio 23.5 RATIO (10-20); Calcium,Total 8.7 mg/dL (8.5-10.1); Chloride 111 mmol/L (98-107); EST Glomerular Filtration Rate 27 mL/min (>60); Est Glom Filt Rate - Afr Amer 32 mL/min (>60); Globulin 3.3 g/dL (2.2-4.2); Glucose 84 mg/dL (74-106); Protein, Total 6.4 g/dL (6.4-8.2); Sodium Level 142 mmol/L (136-145)
== END ==
LOC: OLS.SW500 05:00
PROVIDERS: PCP Family Medicine; Visit Provider Family Medicine
DX: I10 Essential (primary) hypertension (principal)
CPT/HCPCS: 36415; 80053; 85027

== ENCOUNTER → 2022-05-29 | Outpatient (REF) | payer MEDICARE, MEDICAID, SELFPAY ==
[2019-02-26 13:57] VITALS: BMI 24.9
[2022-05-29 08:45] LABS: Anion Gap 7 (5-15); BUN 49 mg/dL (7-18); BUN/Creat Ratio 19.7 RATIO (10-20); Calcium,Total 8.6 mg/dL (8.5-10.1); Chloride 109 mmol/L (98-107); Creatinine, Serum 2.49 mg/dL (0.70-1.30); EST Glomerular Filtration Rate 28 mL/min (>60); Est Glom Filt Rate - Afr Amer 34 mL/min (>60); Glucose 82 mg/dL (74-106); Potassium 4.6 mmol/L (3.5-5.1); Sodium Level 140 mmol/L (136-145)
== END ==
LOC: OLS.SW500 05:00
PROVIDERS: PCP Family Medicine; Visit Provider Family Medicine
DX: I10 Essential (primary) hypertension (principal); G93.40 Encephalopathy, unspecified
CPT/HCPCS: 36415; 80048

== ENCOUNTER → 2022-06-05 | Outpatient (REF) | payer MEDICARE, MEDICAID, SELFPAY ==
[2019-02-26 13:57] VITALS: BMI 24.9
[2022-06-05 09:09] LABS: Anion Gap 7 (5-15); BUN 56 mg/dL (7-18); BUN/Creat Ratio 19.8 RATIO (10-20); Calcium,Total 8.2 mg/dL (8.5-10.1); Chloride 111 mmol/L (98-107); Creatinine, Serum 2.83 mg/dL (0.70-1.30); EST Glomerular Filtration Rate 24 mL/min (>60); Est Glom Filt Rate - Afr Amer 29 mL/min (>60); Glucose 85 mg/dL (74-106); Potassium 4.8 mmol/L (3.5-5.1); Sodium Level 141 mmol/L (136-145)
== END ==
LOC: OLS.SW500 05:00
PROVIDERS: PCP Family Medicine; Visit Provider Family Medicine
DX: I10 Essential (primary) hypertension (principal); G93.40 Encephalopathy, unspecified
CPT/HCPCS: 36415; 80048

== ENCOUNTER → 2022-06-06 | Outpatient (REF) | payer MEDICARE, MEDICAID, SELFPAY ==
[2019-02-26 13:57] VITALS: BMI 24.9
[2022-06-06 08:25] LABS: Hematocrit 31.7 % (40-54); Mean Corp Hgb Conc 31.5 g/dL (32-36); Mean Corpuscular Hgb 29.7 pg (27.0-32.0); Mean Corpuscular Volume 94.1 fL (80-94); Mean Platelet Vol. 11.3 fl (6.2-12.0); Platelet Count 204 K/mm3 (150-450); RBC Distribution Width CV 14.9 % (11.6-14.6); RBC Distribution Width SD 51.5 fl (35.1-43.9); Red Blood Count 3.37 M/mm3 (4.6-6.2)
[2022-06-06 08:36] LABS: ALB/GLOB Ratio 1.1 RATIO (0.9-2.4); AST(SGOT) 14 U/L (15-37); Alanine Aminotransfer ALT/SGPT 16 U/L (16-61); Albumin, Serum 3.2 g/dL (3.2-5.0); Alkaline Phosphatase 88 U/L (45-117); Anion Gap 6 (5-15); BUN 57 mg/dL (7-18); BUN/Creat Ratio 20.6 RATIO (10-20); Calcium,Total 8.4 mg/dL (8.5-10.1); Chloride 113 mmol/L (98-107); Creatinine, Serum 2.77 mg/dL (0.70-1.30); EST Glomerular Filtration Rate 25 mL/min (>60); Est Glom Filt Rate - Afr Amer 30 mL/min (>60); Glucose 85 mg/dL (74-106); Protein, Total 6.2 g/dL (6.4-8.2); Sodium Level 141 mmol/L (136-145)
== END ==
LOC: OLS.SW500 05:00
PROVIDERS: PCP Family Medicine; Visit Provider Family Medicine
DX: D64.9 Anemia, unspecified (principal); E11.9 Type 2 diabetes mellitus without complications
CPT/HCPCS: 36415; 80053; 85027

== ENCOUNTER 2022-11-17 16:40 | Emergency (ER) | payer MEDICARE, MEDICAID, SELFPAY ==
[2019-02-26 13:57] VITALS: BMI 24.9
[2022-11-17 16:41] VITALS: BP 117/96; PULSE 58; RESP 15; TEMP 36.1; O2SAT 98; BMI 25.9
--- NOTE | 2022-11-17 17:05 | EKG12_ITS ---
Test Reason : GENERAL Blood Pressure : / mmHG Vent. Rate : 057 BPM Atrial Rate : 057 BPM P-R Int : 206 ms QRS Dur : 096 ms QT Int : 502 ms P-R-T Axes : 025 016 -32 degrees QTc Int : 488 ms Sinus bradycardia Low voltage QRS T wave abnormality, consider anterior ischemia Prolonged QT Abnormal ECG Confirmed by MILLI GAXIOLA, TYLOR ([id number]), makeup editor GIRMA MENDOSA ([id number]) on 11/20/2022 11:25:36 AM Referred By: Confirmed By:TYLOR MORLEY MD
[2022-11-17 17:41] VITALS: O2SAT 100
[2022-11-17 17:45] LABS: Absolute Neutrophil Count 7.6 X10^3/uL (2.0-7.7); Basophil# 0.08 X10^3/uL; Basophil% 0.8 % (0-1); Eosinophil# 0.27 X10^3/uL; Eosinophils% 2.8 % (0-5); Hematocrit 36.7 % (40-54); Hemoglobin 11.3 g/dL (13.0-16.5); Lymphocyte % 10.5 % (19-41); Mean Corp Hgb Conc 30.8 g/dL (32-36); Mean Corpuscular Hgb 27.3 pg (27.0-32.0); Mean Corpuscular Volume 88.6 fL (80-94); Mean Platelet Vol. 12.7 fl (6.2-12.0); Monocyte# 0.55 X10^3/uL; Monocyte% 5.8 % (0-10); NRBC Flagged by Analyzer 0 % (0-5); Neutrophil # 7.56 X10^3/uL (2.7-7.7); Neutrophil % 79.9 % (47-70); Platelet Count 200 K/mm3 (150-450); RBC Distribution Width SD 48.4 fl (35.1-43.9); Red Blood Count 4.14 M/mm3 (4.6-6.2); White Blood Count 9.5 K/mm3 (4.4-11.0)
[2022-11-17 17:49] LABS: International Normalized Ratio 1.3
[2022-11-17 18:00] LABS: ALB/GLOB Ratio 1.1 RATIO (0.9-2.4); AST(SGOT) 27 U/L (15-37); Alanine Aminotransfer ALT/SGPT 56 U/L (16-61); Albumin, Serum 3.5 g/dL (3.2-5.0); Alkaline Phosphatase 136 U/L (45-117); Anion Gap 11 (5-15); BUN 39 mg/dL (7-18); BUN/Creat Ratio 11.4 RATIO (10-20); Calcium,Total 8.1 mg/dL (8.5-10.1); Chloride 107 mmol/L (98-107); Creatinine, Serum 3.43 mg/dL (0.70-1.30); EST Glomerular Filtration Rate 19 mL/min (>60); Est Glom Filt Rate - Afr Amer 24 mL/min (>60); Estimated Creatinine Clearance 24.51 ml/min; Globulin 3.2 g/dL (2.2-4.2); Glucose 105 mg/dL (74-106); Lipase 57 U/L (73-393); Potassium 3.6 mmol/L (3.5-5.1); Protein, Total 6.7 g/dL (6.4-8.2); Sodium Level 139 mmol/L (136-145); Troponin-I HS (w/2H Reflex) 37 pg/mL (3.0-78.0)
[2022-11-17 18:05] LABS: Lactic Acid 1.4 mmol/L (0.4-1.9)
--- NOTE | 2022-11-17 18:30 | CT_ITS ---
INDICATION: Abdominal pain EXAMINATION: CT ABDOMEN AND PELVIS WITHOUT CONTRAST - CT Abdomen And Pelvis W/O Contrast Injection TECHNIQUE: Helically acquired images were obtained of the abdomen and pelvis without oral or IV contrast. A radiation dose optimization technique was used for this scan. IV Contrast dosage and agent: None. Oral contrast: None. RADIATION DOSAGE (If Supplied By Facility): CTDIvol = ( 10.48 ) mGy, DLP = ( 533.97 ) mGycm COMPARISON: None. FINDINGS: LOWER CHEST: 1. Moderate to large bilateral pleural fluid collections and basilar atelectasis without willian consolidation. 2. Cardiac contour is moderately enlarged and the. Trace pericardial effusion and scattered coronary vascular calcifications noted. There does appear to be a coronary stent in place. LIVER: The liver has normal configuration and density given the limitation of noncontrast exam. No focal mass. GALLBLADDER AND BILIARY TREE: Gallbladder is distended, gallbladder wall thickening and trace pericholecystic fluid is suspected. Subtle hyperdensity noted along posterior aspect of the gallbladder may represent layering sludge or small stones. No willian ductal dilatation. PANCREAS: No focal cystic or solid mass. There is a circumscribed gas collection adjacent to the 2nd portion the duodenum within the pancreatic head likely representing a duodenal diverticulum, measuring approximately 1.9 x 1.7 cm. SPLEEN: Normal size without focal cystic or solid mass. ADRENAL GLANDS: No nodules. KIDNEYS AND URETERS: Normal renal size and position. No evidence hydronephrosis. Perinephric soft tissue stranding and trace fluid is present. No evidence of ureteral distention or obstruction. PERITONEUM: Moderate ascites is present. BOWEL: No evidence of acute appendicitis although the appendix is not clearly visualized. Moderate amount retained stool present throughout the colon. No evidence diverticulitis. No focal inflammatory change. LYMPH NODES: No enlarged mesenteric or retroperitoneal lymph nodes. VESSELS: Aorta is non-dilated. URINARY BLADDER: Bladder is partially obscured due to streak artifact from bilateral hip of plasties, however no distinct masses or calcifications. REPRODUCTIVE ORGANS: Pelvis is obscured due to streak artifact from bilateral hip arthroplasties. ABDOMINAL WALL: No discrete abdominal or pelvic wall hernia. BONES: Mild lumbar spondylosis, remote postoperative changes involving both hips. No acute bony changes. CT/Abdomen/Pelvis without Cont IMPRESSION: 1. No masses or bowel obstruction. 2. Moderate ascites. No free air or abscess. 3. Distention of the gallbladder, gallbladder wall thickening, pericholecystic fluid and suspicion of a layering sludge versus small stones. Early or developing cholecystitis is a consideration. No ductal dilatation. 4. Duodenal diverticulum is noted without adjacent inflammatory changes. 5. No evidence of obstructive uropathy. 6. Large bilateral pleural fluid collections, basilar atelectasis is noted. No lobar consolidation. 7. Trace pleural thickening versus small pleural effusion. Electronically Signed: Leonid Koo MD at 19:30 EST ,
[2022-11-17 18:40] VITALS: BP 121/85; PULSE 58; RESP 12; O2SAT 99
[2022-11-17 19:30] LABS: Reflex Troponin-HS? (from REC) Y
[2022-11-17 20:21] LABS: Troponin-I HS 33 pg/mL (3.0-78.0)
--- NOTE | 2022-11-17 21:14 | EDS_ITS ---
HPI History of Present Illness Chief Complaint: General Illness Informant: patient Onset/Context/Timing Onset: Days (2) Context: Gradual Onset Timing: Continuous Quality: Aching Location: Generalized Worsened by: Nothing Relieved by: Nothing Narrative Narrative: Patient presents with not eating for the past 2 days. Patient states he has not been able to eat anything or drink anything. Patient states that when he tries he feels a pressure in his chest and upper abdomen. Patient states nothing makes his symptoms better nothing makes them worse. Patient denies any fevers or chills. Patient denies any nausea or vomiting. Patient denies any diarrhea. Patient denies any melena or hematochezia. Patient denies any dysuria or hematuria. Patient denies any urinary frequency. [facility] Medical History Abnormal stress test Acute cerebrovascular accident of cerebellum RASHAWN (acute kidney injury) Ankle fracture, left Atherosclerotic heart disease of [place] coronary artery without angina pectoris Chest pain Chest pain at rest Essential hypertension History of left heart catheterization (LHC) (~02/26/19) Neck fracture Noncompliance with medication regimen PFO (patent foramen ovale) Presence of stent in coronary artery (~02/26/19) Pure hypercholesterolemia Smokeless tobacco use Tobacco chew use Uncontrolled type 2 diabetes mellitus Home Medications aspirin 81 mg tablet,delayed release 81 mg PO DAILY@0800 #0 tabs 03/07/22 [Rx Last Taken Unknown] atorvastatin 40 mg tablet 40 mg PO QHS #0 tabs 03/07/22 [Rx Last Taken Unknown] carvedilol 25 mg tablet 25 mg PO BID #0 tabs 03/07/22 [Rx Last Taken Unknown] clopidogrel 75 mg tablet 75 mg PO DAILY #0 tabs 03/07/22 [Rx Last Taken Unknown] isosorbide mononitrate 30 mg tablet,extended release 24 hr 30 mg PO DAILY #0 tabs 03/07/22 [Rx Last Taken Unknown] nitroglycerin 0.4 mg sublingual tablet 0.4 mg sublingual Q5M PRN Chest Pain #0 tabs 03/07/22 [Rx Last Taken Unknown] acetaminophen 325 mg tablet 650 mg PO Q4H PRN 06/05/22 [History Last Taken Unknown] acetaminophen 650 mg rectal suppository 650 mg ID Q4H PRN 06/05/22 [History Last Taken Unknown] aluminum-magnesium hydroxide 225 mg-200 mg/5 mL oral suspension 30 ml PO DAILY PRN 06/05/22 [History Last Taken Unknown] amlodipine 10 mg tablet 10 mg PO DAILY 06/05/22 [History Last Taken Unknown] ascorbic acid (vitamin C) 500 mg tablet 500 mg PO DAILY 06/05/22 [History Last Taken Unknown] bisacodyl 10 mg rectal suppository 10 mg ID DAILY PRN 06/05/22 [History Last Taken Unknown] cholecalciferol (vitamin D3) 1,250 mcg (50,000 unit) capsule 1,250 mcg PO QWEEK 06/05/22 [History Last Taken Unknown] cyanocobalamin (vitamin B-12) 1,000 mcg tablet 1,000 mcg PO DAILY 06/05/22 [History Last Taken Unknown] ferrous sulfate 325 mg (65 mg iron) tablet (FeroSul) 325 mg PO BID 06/05/22 [History Last Taken Unknown] guaifenesin 100 mg/5 mL oral liquid 200 mg PO Q4H PRN 06/05/22 [History Last Taken Unknown] magnesium hydroxide 400 mg/5 mL oral suspension (Milk of Magnesia) 30 ml PO DAILY PRN 06/05/22 [History Last Taken Unknown] mirtazapine 15 mg tablet 15 mg PO QHS 06/05/22 [History Last Taken Unknown] multivitamin 1 tab PO DAILY 06/05/22 [History Last Taken Unknown] sodium phosphates 19 gram-7 gram/118 mL enema (Fleet Enema) 118 ml ID ONCE PRN 06/05/22 [History Last Taken Unknown] tramadol 50 mg tablet 50 mg PO Q6H PRN 06/05/22 [History Last Taken Unknown] ondansetron 4 mg disintegrating tablet 4 mg PO Q8H PRN PRN Nausea #10 tabs 11/17/22 [Rx Last Taken Unknown] Allergy/AdvReac Type Severity Reaction Status Date / Time ampicillin Allergy Swelling Verified 06/05/22 14:32 fish derived Allergy Swelling Verified 08/25/22 13:38 [seafood - derived] ibuprofen [From Motrin] Allergy Swelling Verified 06/05/22 14:32 shellfish derived Allergy Swelling Verified 08/25/22 13:38 [seafood - shellfish] Surgical History H/O bilateral hip replacements Presence of coronary angioplasty implant and graft (~02/26/19) Social History Smoking Status: Never smoker alcohol intake: never substance use type: does not use caffeine: Yes ROS ROS ED Constitutional Constitutional ED: Denies chills or fever(s) Eyes Eyes: Denies blurry vision or change in vision ENT ENT ED: Denies rhinorrhea or sore throat Cardiovascular Cardiovascular: Denies chest pain or palpitations Respiratory/Chest Respiratory/Chest: Denies cough or dyspnea Gastrointestinal Gastrointestinal: Denies nausea or vomiting Genitourinary Genitourinary ED: Denies dysuria or hematuria Musculoskeletal Musculoskeletal: Denies back pain or neck pain Integumentary Denies abscess or rash Neurologic Neurologic: Denies headache(s) or weakness Allergic/Immunologic Allergic/Immunologic ED: Denies mouth swelling or urticaria EXAM Physical Exam Const Vital Signs: 11/17/22 16:41 11/17/22 16:49 11/17/22 17:41 Temperature 96.9 F L Temperature Source Temporal Pulse Rate 58 L Respiratory Rate 15 Respiratory Effort Normal Blood Pressure 117/96 H Blood Pressure Mean 103 Pulse Ox 98 100 Oxygen Delivery Method Room Air Room Air 11/17/22 18:40 11/17/22 21:32 Temperature 98 F Temperature Source Temporal Pulse Rate 58 L 67 Respiratory Rate 12 17 Respiratory Effort Blood Pressure 121/85 H 128/97 H Blood Pressure Mean 97 107 Pulse Ox 99 98 Oxygen Delivery Method Room Air Room Air Positive well nourished, well developed and unkempt General Appearance ED: unkempt, well developed and NAD HEENT Reports moist mucous membranes Eyes PERRL and EOMs intact bilaterally Neck supple and no JVD Resp normal respiratory effort and clear to auscultation bilaterally Cardio regular rate and regular rhythm GI GI Narrative: There is mild diffuse tenderness. There is no rebound or guarding noted. There are no masses palpated. Palpation: soft; Negative for guarding, mass or rebound tenderness present Neuro oriented x3, CN's II-XII intact bilaterally and no sensory deficits noted Sensorium / Orientation: alert Motor Exam: general weakness Psych Appearance: unkempt MDM MDM MDM Narrative Medical decision making narrative: Differential diagnosis includes anemia, gastroenteritis, gastritis, pancreatitis, colitis, bowel obstruction, bowel perforation, urinary tract infection, hepatitis, cardiac dysrhythmia, cardiac ischemia, encephalopathy, and gastrointestinal bleeding. EKG will be obtained to assess for cardiac dysrhythmia and cardiac ischemia. CT scan of the abdomen and pelvis will be obtained to assess for bowel perforation, bowel obstruction, ascites, and mass. CBC will be obtained to assess for leukocytosis and anemia. Comprehensive metabolic profile will be obtained to assess for renal function, electrolyte abnormality, and hepatic function. PT with INR and PTT will be obtained to assess for coagulopathy. High-sensitivity troponin will be obtained to assess for cardiac ischemia. Ammonia level will be obtained to assess for hepatic encephalopathy. Lactate will be obtained to assess for sepsis. Blood type and screen will be obtained to assess for blood type in case the patient is anemic. History & Record Review Additional record(s) reviewed:: Prior labs Lab Data Attestation: I reviewed the patient's lab results. Lab results narrative: CBC was reviewed. There is a mild anemia with a hemoglobin of 11.3 and hematocrit 36.7. Comprehensive metabolic profile was reviewed. BUN was 39 and creatinine was 3.43. The creatinine is slightly increased from previous results. PT with INR was reviewed. Pro time was 16.0 and INR is 1.3. PTT was normal at 31. High-sensitivity troponin was normal at 37. Lipase was normal at 57. 2-hour repeat high-sensitivity troponin was normal at 33. Lactate was normal at 1.4. Serum ammonia level was normal at 14. Labs: Laboratory Results - last 24 hr 11/17/22 11/17/22 11/17/22 16:26 16:26 16:26 WBC 9.5 RBC 4.14 L Hgb 11.3 L Hct 36.7 L MCV 88.6 MCH 27.3 MCHC 30.8 L RDW Std Deviation 48.4 H RDW Coeff of Ave 15.0 H Plt Count 200 MPV 12.7 H Immature Gran % (Auto) 0.200 Neut % (Auto) 79.9 H Lymph % (Auto) 10.5 L [place] % (Auto) 5.8 Eos % (Auto) 2.8 Baso % (Auto) 0.8 Absolute Neuts (auto) 7.6 Absolute Lymphs (auto) 1.00 Nucleated RBC % 0 PT 16.0 H INR 1.3 APTT 31.0 Sodium 139 Potassium 3.6 Chloride 107 Carbon Dioxide 21.0 Anion Gap 11 BUN 39 H Creatinine 3.43 H Estim Creat Clear Calc 24.51 Est GFR (MDRD) Af Amer 24 L Est GFR (MDRD) Non-Af 19 L BUN/Creatinine Ratio 11.4 Glucose 105 Lactic Acid Calcium 8.1 L Total Bilirubin 1.00 AST 27 ALT 56 Alkaline Phosphatase 136 H Ammonia Troponin I High Sens 37 Total Protein 6.7 Albumin 3.5 Globulin 3.2 Albumin/Globulin Ratio 1.1 Lipase 57 L Blood Type Antibody Screen 11/17/22 11/17/22 11/17/22 17:20 17:20 19:52 WBC RBC Hgb Hct MCV MCH MCHC RDW Std Deviation RDW Coeff of Ave Plt Count MPV Immature Gran % (Auto) Neut % (Auto) Lymph % (Auto) [place] % (Auto) Eos % (Auto) Baso % (Auto) Absolute Neuts (auto) Absolute Lymphs (auto) Nucleated RBC % PT INR APTT Sodium Potassium Chloride Carbon Dioxide Anion Gap BUN Creatinine Estim Creat Clear Calc Est GFR (MDRD) Af Amer Est GFR (MDRD) Non-Af BUN/Creatinine Ratio Glucose Lactic Acid 1.4 Calcium Total Bilirubin AST ALT Alkaline Phosphatase Ammonia Troponin I High Sens 33 Total Protein Albumin Globulin Albumin/Globulin Ratio Lipase Blood Type O POSITIVE Antibody Screen NEGATIVE 11/17/22 19:52 WBC RBC Hgb Hct MCV MCH MCHC RDW Std Deviation RDW Coeff of Ave Plt Count MPV Immature Gran % (Auto) Neut % (Auto) Lymph % (Auto) [place] % (Auto) Eos % (Auto) Baso % (Auto) Absolute Neuts (auto) Absolute Lymphs (auto) Nucleated RBC % PT INR APTT Sodium Potassium Chloride Carbon Dioxide Anion Gap BUN Creatinine Estim Creat Clear Calc Est GFR (MDRD) Af Amer Est GFR (MDRD) Non-Af BUN/Creatinine Ratio Glucose Lactic Acid Calcium Total Bilirubin AST ALT Alkaline Phosphatase Ammonia 14.0 Troponin I High Sens Total Protein Albumin Globulin Albumin/Globulin Ratio Lipase Blood Type Antibody Screen Radiography Diagnostic Testing: Clinical Impression(s) from Imaging Studies Abdomen/Pelvis CT 11/17/22 18:30 IMPRESSION: 1. No masses or bowel obstruction. 2. Moderate ascites. No free air or abscess. 3. Distention of the gallbladder, gallbladder wall thickening, pericholecystic fluid and suspicion of a layering sludge versus small stones. Early or developing cholecystitis is a consideration. No ductal dilatation. 4. Duodenal diverticulum is noted without adjacent inflammatory changes. 5. No evidence of obstructive uropathy. 6. Large bilateral pleural fluid collections, basilar atelectasis is noted. No lobar consolidation. 7. Trace pleural thickening versus small pleural effusion. Electronically Signed: Leonid Koo MD at 19:30 EST , CT scan of the abdomen pelvis was obtained. There are no masses or obstruction. There is no free air. There is moderate ascites. There is distention of the gallbladder, gallbladder wall thickening, pericholecystic fluid, and question of small stones. There is no ductal dilatation noted. There are bilateral pleural effusions noted. There is no focal consolidation. This was interpreted by the radiologist and was also independently reviewed by myself. EKG Initial EKG: Attestation: I personally reviewed and interpreted this EKG as follows: Interpretation: Sinus Bradycardia (57) and Non-Specific ST Changes Prior EKG tracings: available for review Prior: Unchanged (03/04/2022) Differential Diagnosis Abdominal Pain: Appendicitis Reason(s) appendicitis less likely: Positive for clinical exam does not supportclinical exam does not support, Cholecystitis Reason(s) Cholecystitis less likely: clinical exam does not support, Pancreatitis Reason(s) Pancreatitis less likely: NL lab values and Bowel obstruction Reason(s) bowel obstruction less likely: no evidence of bowel obstruction on imaging studies Treatment and Re-Evaluation :: Patient was given IV fluids. Patient feels better and wants to go home. Patient was advised of his findings. I believe the pericholecystic fluid and gallbladder wall thickening is due to the ascites. His liver function tests are normal except for a mildly elevated alkaline phosphatase. He does not have a leukocytosis. He does not really have much tenderness over the right upper quadrant. He has negative Mcghee sign. Because of this, I do not feel this is an acute cholecystitis. Patient was offered admission but states he would rather go home and drink fluids. Patient was given a prescription for Zofran. Patient was instructed return if worse in any way. Patient was instructed to follow-up with his primary care physician in 3 to 5 days. Patient understands and is agreeable with the plan. All questions were answered. Discharge Plan Triage Chief Complaint: General Illness ED Provider: Enrrique Do Dx/Rx/DC Orders Clinical Impression: Abdominal ascites, Tobacco chew use Instructions: ED Ascites Prescriptions: New ondansetron [ondansetron] 4 mg tablet,disintegrating 4 mg PO Q8H PRN PRN (Reason: Nausea) Qty: 10 0RF No Action acetaminophen 650 mg suppository 650 mg ID Q4H PRN acetaminophen 325 mg tablet 650 mg PO Q4H PRN amlodipine 10 mg tablet 10 mg PO DAILY aluminum-magnesium hydroxide 225-200 mg/5 mL suspension 30 ml PO DAILY PRN bisacodyl 10 mg suppository 10 mg ID DAILY PRN cyanocobalamin (vitamin B-12) 1,000 mcg tablet 1,000 mcg PO DAILY ferrous sulfate [FeroSul] 325 mg (65 mg iron) tablet 325 mg PO BID Fleet Enema 19-7 gram/118 mL enema 118 ml ID ONCE PRN guaifenesin 100 mg/5 mL liquid 200 mg PO Q4H PRN magnesium hydroxide [Milk of Magnesia] 400 mg/5 mL suspension 30 ml PO DAILY PRN multivitamin Tablet 1 tab PO DAILY mirtazapine 15 mg tablet 15 mg PO QHS tramadol 50 mg tablet 50 mg PO Q6H PRN ascorbic acid (vitamin C) 500 mg tablet 500 mg PO DAILY cholecalciferol (vitamin D3) 1,250 mcg (50,000 unit) capsule 1,250 mcg PO QWEEK aspirin 81 mg Tablet,Delayed Release (Dr/Ec) 81 mg PO DAILY@0800 Qty: 0 0RF atorvastatin 40 mg Tablet 40 mg PO QHS Qty: 0 0RF carvedilol 25 mg Tablet 25 mg PO BID Qty: 0 0RF isosorbide mononitrate 30 mg Tablet Extended Release 24 Hr 30 mg PO DAILY Qty: 0 0RF clopidogrel 75 mg Tablet 75 mg PO DAILY Qty: 0 0RF nitroglycerin 0.4 mg Tablet, Sublingual 0.4 mg sublingual Q5M PRN (Reason: Chest Pain) Qty: 0 0RF Primary Care Provider: Rosario Arroyo Referrals: Rosario Arroyo DO [Primary Care Provider] - 3-5 Days Disposition Disposition: Home, Self Care
[2022-11-17 21:32] VITALS: BP 128/97; PULSE 67; RESP 17; TEMP 36.6; O2SAT 98
--- NOTE | 2022-11-17 22:50 | ED.RN ---
Eddie, , cannot come get patient now as he just left town to go home and no one else can come get him. They said someone can get him in the am but not tonight. Eileen states he can take a cab but the vm is full and no one picked up x 2 attempts. Will continue to try to contact.
[2022-11-18 00:29] VITALS: O2SAT 99
[2022-11-18 06:48] VITALS: O2SAT 98
== END 2022-11-18 07:16 | disposition home or self-care (01) ==
PROVIDERS: Emergency Provider Emergency Medicine; PCP Family Medicine; Visit Provider Emergency Medicine
DX: R18.8 Other ascites (principal); E11.9 Type 2 diabetes mellitus without complications; I25.10 Atherosclerotic heart disease of native coronary artery without angina pectoris; I10 Essential (primary) hypertension; E78.00 Pure hypercholesterolemia, unspecified
CPT/HCPCS: 74176; 80053; 82140; 83605; 83690; 84484; 85025; 85610; 85730; 86850; 86900; 86901; 93005; 96360; 96361; 99285; J7040; A4216

== ENCOUNTER 2022-12-20 08:07 | Inpatient (IN) | payer MEDICARE, MEDICAID, SELFPAY ==
[2019-02-26 13:57] VITALS: BMI 24.9
[2022-12-20] VITALS (11 sets, daily range): BP systolic 131–168; BP diastolic 90–124; PULSE 70–92; RESP 16–18; TEMP 36.1–37; O2SAT 86–100; BMI 23.8; BMI 22.5
--- NOTE | 2022-12-20 08:18 | CT_ITS ---
STUDY: CT BRAIN WITHOUT CONTRAST REASON FOR EXAM: Male, 62 years old. Trauma RADIATION DOSAGE (If Supplied By Facility): CTDIvol = ( 44.99 ) mGy, DLP = ( 779.24 ) mGycm TECHNIQUE: Transaxial CT imaging of the brain was performed without administration of intravenous contrast material. Individualized dose optimization techniques were used for this CT. COMPARISON: No relevant priors. FINDINGS: Normal soft tissue structures. Normal calvarium. There is mild cerebral atrophy with widening of the extra-axial spaces and ventricular dilatation. There are areas of decreased attenuation within the white matter tracts of the supratentorial brain, consistent with microvascular disease changes. Stable old lacunar infarcts in both basal ganglia. Normal brainstem. There is moderate cerebellar atrophy. There is evidence of encephalomalacia in the right cerebellar hemisphere in keeping with old infarction. There is no intracranial hemorrhage. There are no findings of an acute ischemic infarction. Normal visualized paranasal sinuses. CT/Brain/Head without Contrast IMPRESSION: Chronic involutional changes of the brain. Electronically Signed: Randy Murrell MD at 10:06 EDT ,
--- NOTE | 2022-12-20 08:20 | EDS_ITS ---
HPI History of Present Illness Chief Complaint: Weakness Informant: patient Narrative Narrative: Presents with some generalized weakness and fall at home. It is a little hard to get information from him. It sounds like he really did not want to come in here so he does not want to talk a lot. He also speaks very quietly and is hard to understand him at times. He does states that he has been feeling a little bit more weak for a 1 to 2 days. He does live alone at home. He fell twice today but it sounds like he just slid out of a chair and was weak. He states he did not hurt himself. He states he is taking his medications. He has a history primarily of heart disease and a stroke. He is not having any pains anywhere. He is not having trouble breathing. He has not felt ill but he just feels weak. It is a little bit hard to get most other details from him. [facility] Medical History Abnormal stress test Acute cerebrovascular accident of cerebellum RASHAWN (acute kidney injury) Ankle fracture, left Atherosclerotic heart disease of [place] coronary artery without angina pectoris Chest pain Chest pain at rest Essential hypertension History of left heart catheterization (LHC) (~02/26/19) Neck fracture Noncompliance with medication regimen PFO (patent foramen ovale) Presence of stent in coronary artery (~02/26/19) Pure hypercholesterolemia Smokeless tobacco use Tobacco chew use Uncontrolled type 2 diabetes mellitus Home Medications aspirin 81 mg tablet,delayed release 81 mg PO DAILY@0800 #0 tabs 03/07/22 [Rx Last Taken Unknown] atorvastatin 40 mg tablet 40 mg PO QHS #0 tabs 03/07/22 [Rx Last Taken Unknown] carvedilol 25 mg tablet 25 mg PO BID #0 tabs 03/07/22 [Rx Last Taken Unknown] clopidogrel 75 mg tablet 75 mg PO DAILY #0 tabs 03/07/22 [Rx Last Taken Unknown] isosorbide mononitrate 30 mg tablet,extended release 24 hr 30 mg PO DAILY #0 tabs 03/07/22 [Rx Last Taken Unknown] nitroglycerin 0.4 mg sublingual tablet 0.4 mg sublingual Q5M PRN Chest Pain #0 tabs 03/07/22 [Rx Last Taken Unknown] acetaminophen 325 mg tablet 650 mg PO Q4H PRN 09/19/22 [History Last Taken Unknown] acetaminophen 650 mg rectal suppository [address] Q4H PRN 06/05/22 [History Last Taken Unknown] aluminum-magnesium hydroxide 225 mg-200 mg/5 mL oral suspension 30 ml PO DAILY PRN 06/05/22 [History Last Taken Unknown] amlodipine 10 mg tablet 10 mg PO DAILY 06/05/22 [History Last Taken Unknown] ascorbic acid (vitamin C) 500 mg tablet 500 mg PO DAILY 06/05/22 [History Last T aken Unknown] bisacodyl 10 mg rectal suppository [address] DAILY PRN 06/05/22 [History Last Taken Unknown] cholecalciferol (vitamin D3) 1,250 mcg (50,000 unit) capsule 1,250 mcg PO QWEEK 06/05/22 [History Last Taken Unknown] cyanocobalamin (vitamin B-12) 1,000 mcg tablet 1,000 mcg PO DAILY 06/05/22 [History Last Taken Unknown] ferrous sulfate 325 mg (65 mg iron) tablet (FeroSul) 325 mg PO BID 06/05/22 [History Last Taken Unknown] guaifenesin 100 mg/5 mL oral liquid 200 mg PO Q4H PRN 06/05/22 [History Last Taken Unknown] magnesium hydroxide 400 mg/5 mL oral suspension (Milk of Magnesia) 30 ml PO DAILY PRN 06/05/22 [History Last Taken Unknown] mirtazapine 15 mg tablet 15 mg PO QHS 06/05/22 [History Last Taken Unknown] multivitamin 1 tab PO DAILY 06/05/22 [History Last Taken Unknown] sodium phosphates 19 gram-7 gram/118 mL enema (Fleet Enema) [address] ONCE PRN 06/05/22 [History Last Taken Unknown] tramadol 50 mg tablet 50 mg PO Q6H PRN 06/05/22 [History Last Taken Unknown] ondansetron 4 mg disintegrating tablet 4 mg PO Q8H PRN PRN Nausea #10 tabs 11/17/22 [Rx Last Taken Unknown] Allergy/AdvReac Type Severity Reaction Status Date / Time ampicillin Allergy Swelling Verified 06/05/22 14:32 fish derived Allergy Swelling Verified 08/25/22 13:38 [seafood - derived] ibuprofen [From Motrin] Allergy Swelling Verified 06/05/22 14:32 shellfish derived Allergy Swelling Verified 08/25/22 13:38 [seafood - shellfish] Surgical History H/O bilateral hip replacements Presence of coronary angioplasty implant and graft (~02/26/19) Social History Smoking Status: Never smoker alcohol intake: never substance use type: does not use caffeine: Yes ROS ROS ED Constitutional Constitutional ED: Denies chills or fever(s) ENT ENT ED: Denies sore throat Cardiovascular Cardiovascular: Denies chest pain Respiratory/Chest Respiratory/Chest: Denies cough or dyspnea Gastrointestinal Gastrointestinal: Denies abdominal pain, diarrhea, nausea or vomiting Genitourinary Genitourinary ED: Denies dysuria Musculoskeletal Musculoskeletal: Denies myalgias Integumentary Reports other Details: Patient does have diffuse rash and bedbugs. Neurologic Neurologic: Reports weakness and other Details: Generalized weakness but no new focal weakness. Hematologic/Lymphatic Hematologic/Lymphatic: Denies lymphadenopathy Allergic/Immunologic Allergic/Immunologic ED: Denies urticaria EXAM Physical Exam Narrative Exam Narrative: Patient is awake alert. He is sitting in bed. He looks comfortable and nontoxic. HEENT does show some mildly dry mucous membranes but I do not see any sign of acute trauma. Eyes show pupils about 2-1/2 mm. They are reactive. Neck is nontender Chest is clear. Takes easy unlabored breaths. No tenderness. Heart sounds regular. Abdomen is soft. It is not notably distended. There is no tenderness anywhere. Extremities show no tenderness in any of the joints hips shoulders or pain with motion. Skin does show diffuse excoriations and rash. There are visible bedbugs crawling on the sheets around him. There appear to be some jacinto from prior EKG type stickers on his skin. It sounds like these are from about a month ago when he was in the department here. Const Vital Signs: 12/20/22 08:10 12/20/22 08:24 12/20/22 08:19 Temperature 98.4 F Temperature Source Temporal Pulse Rate 87 Respiratory Rate 18 Respiratory Pattern Normal Blood Pressure 152/112 H Blood Pressure Mean 125 Pulse Ox 86 Oxygen Delivery Method Room Air Oxygen Flow Rate (L/min) 12/20/22 08:43 12/20/22 10:07 Temperature Temperature Source Pulse Rate 84 Respiratory Rate 16 Respiratory Pattern Blood Pressure 168/90 H Blood Pressure Mean 116 Pulse Ox 98 98 Oxygen Delivery Method Nasal Cannula Nasal Cannula Oxygen Flow Rate (L/min) 3 2 MDM MDM MDM Narrative Medical decision making narrative: We ended up adding a chest x-ray after found patient had been transiently hypoxic. He is not complaining of specific complaints to me. However, my independent interpretation of his chest x-ray does show increased markings in both bases. Patient does cough on food so this brings up question of aspiration. We will add Flagyl to his regimen. He has had reactions to ampicillin but evidently no other antibiotics as he had problems with. Patient's white count is normal. Mild anemia electrolytes show baseline renal and seen. Ammonia level is not elevated. Liver function is normal. Urine is clean. We tried to walk the patient. But he is very weak. I think with his hypoxia and weakness living alone at home he is not safe for discharge. I did discuss the case with the hospitalist. Patient will be admitted and the hospitalist is in seeing the patient in the ED at this time. Lab Data Attestation: I reviewed the patient's lab results. Labs: Laboratory Results - last 24 hr 12/20/22 12/20/22 12/20/22 08:40 08:40 08:40 WBC 5.5 RBC 4.28 L Hgb 11.4 L Hct 37.5 L MCV 87.6 MCH 26.6 L MCHC 30.4 L RDW Std Deviation 52.[address] of [address] 16.3 H Plt Count 187 MPV 12.3 H Immature Gran % (Auto) 0.500 Neut % (Auto) 76.1 H Lymph % (Auto) 15.0 L [place] % (Auto) 4.0 Eos % (Auto) 3.5 Baso % (Auto) 0.9 Absolute Neuts (auto) 4.2 Absolute Lymphs (auto) 0.82 L Nucleated RBC % 0 Sodium 139 Potassium 4.3 Chloride 109 H Carbon Dioxide 21.0 Anion Gap 9 BUN 30 H Creatinine 2.91 H Estim Creat Clear Calc 28.89 Est GFR (MDRD) Af Amer 28 L Est GFR (MDRD) Non-Af 23 L BUN/Creatinine Ratio 10.3 Glucose 95 Calcium 8.7 Total Bilirubin 0.80 AST 22 ALT 18 Alkaline Phosphatase 105 Ammonia 29.0 Total Protein 6.3 L Albumin 3.4 Globulin 2.9 Albumin/Globulin Ratio 1.2 Lipase 60 L Urine Color Urine Clarity Urine pH Ur Specific [place] Urine Protein Urine Glucose (UA) Urine Ketones Urine Occult Blood Urine Nitrite Urine Bilirubin Urine Urobilinogen Ur Leukocyte Esterase Urine RBC Urine WBC Ur Squamous Epith Cells Urine Bacteria Urine Mucus 12/20/22 12:10 WBC RBC Hgb Hct MCV MCH MCHC RDW Std Deviation RDW Coeff of Ave Plt Count MPV Immature Gran % (Auto) Neut % (Auto) Lymph % (Auto) [place] % (Auto) Eos % (Auto) Baso % (Auto) Absolute Neuts (auto) Absolute Lymphs (auto) Nucleated RBC % Sodium Potassium Chloride Carbon Dioxide Anion Gap BUN Creatinine Estim Creat Clear Calc Est GFR (MDRD) Af Amer Est GFR (MDRD) Non-Af BUN/Creatinine Ratio Glucose Calcium Total Bilirubin AST ALT Alkaline Phosphatase Ammonia Total Protein Albumin Globulin Albumin/Globulin Ratio Lipase Urine Color Yellow Urine Clarity Clear Urine pH 5.0 Ur Specific [place] 1.020 Urine Protein 100 H Urine Glucose (UA) Normal Urine Ketones 5 H Urine Occult Blood 10 H Urine Nitrite Negative Urine Bilirubin Negative Urine Urobilinogen 1 H Ur Leukocyte Esterase 25 H Urine RBC 0 SEEN Urine WBC 0 SEEN Ur Squamous Epith Cells 0 SEEN Urine Bacteria 0 SEEN Urine Mucus 0 SEEN Radiography Diagnostic Testing: Clinical Impression(s) from Imaging Studies Brain CT 12/20/22 08:18 IMPRESSION: Chronic involutional changes of the brain. Electronically Signed: Randy Murrell MD at 10:06 EDT , Chest X-Ray 12/20/22 14:05 IMPRESSION: Borderline cardiomegaly. Findings suggestive of CHF with possible atelectasis and/or infiltrate in the left lower lobe. Electronically Signed: Randy Murrell MD at 14:30 EDT , EKG Initial EKG: Comments: My independent interpretation of the EKG done for generalized weakness shows a normal sinus rhythm with a rate of 83. No ventricular ectopy. Slight left atrial enlargement with humped P wave in lead II and biphasic in anterior chest leads. No acute ST elevation or depression. CT interval is slightly long at 202 ms. QRS duration is normal. QTc is prolonged at 474 ms. EKG is similar to 1 done 04 March 2022 but slightly different than the November 17 of this year. Discharge Plan Triage Chief Complaint: Weakness ED Provider: Omid Sexton Dx/Rx/DC Orders Clinical Impression: Generalized weakness, Aspiration pneumonia Prescriptions: No Action acetaminophen 650 mg suppository [address] Q4H PRN acetaminophen 325 mg tablet 650 mg PO Q4H PRN amlodipine 10 mg tablet 10 mg PO DAILY aluminum-magnesium hydroxide 225-200 mg/5 mL suspension 30 ml PO DAILY PRN bisacodyl 10 mg suppository [address] DAILY PRN cyanocobalamin (vitamin B-12) 1,000 mcg tablet 1,000 mcg PO DAILY ferrous sulfate [FeroSul] 325 mg (65 mg iron) tablet 325 mg PO BID Fleet Enema 19-7 gram/118 mL enema [address] ONCE PRN guaifenesin 100 mg/5 mL liquid 200 mg PO Q4H PRN magnesium hydroxide [Milk of Magnesia] 400 mg/5 mL suspension 30 ml PO DAILY PRN multivitamin Tablet 1 tab PO DAILY mirtazapine 15 mg tablet 15 mg PO QHS tramadol 50 mg tablet 50 mg PO Q6H PRN ascorbic acid (vitamin C) 500 mg tablet 500 mg PO DAILY cholecalciferol (vitamin D3) 1,250 mcg (50,000 unit) capsule 1,250 mcg PO QWEEK aspirin 81 mg Tablet,Delayed Release (Dr/Ec) 81 mg PO DAILY@0800 Qty: 0 0RF atorvastatin 40 mg Tablet 40 mg PO QHS Qty: 0 0RF carvedilol 25 mg Tablet 25 mg PO BID Qty: 0 0RF isosorbide mononitrate 30 mg Tablet Extended Release 24 Hr 30 mg PO DAILY Qty: 0 0RF clopidogrel 75 mg Tablet 75 mg PO DAILY Qty: 0 0RF nitroglycerin 0.4 mg Tablet, Sublingual 0.4 mg sublingual Q5M PRN (Reason: Chest Pain) Qty: 0 0RF ondansetron [ondansetron] 4 mg tablet,disintegrating 4 mg PO Q8H PRN PRN (Reason: Nausea) Qty: 10 0RF Primary Care Provider: Rosario Arroyo Referrals: Rosario Arroyo DO [Primary Care Provider] - Disposition Disposition: Acute Care [facility]
[2022-12-20 08:53] LABS: Absolute Lymphocyte Count 0.82 X10^3/uL (0.83-4.51); Absolute Neutrophil Count 4.2 X10^3/uL (2.0-7.7); Basophil# 0.05 X10^3/uL; Basophil% 0.9 % (0-1); Eosinophil# 0.19 X10^3/uL; Eosinophils% 3.5 % (0-5); Hematocrit 37.5 % (40-54); Hemoglobin 11.4 g/dL (13.0-16.5); Lymphocyte # 0.82 X10^3/ul (0.83-4.51); Mean Corp Hgb Conc 30.4 g/dL (32-36); Mean Corpuscular Hgb 26.6 pg (27.0-32.0); Mean Corpuscular Volume 87.6 fL (80-94); Mean Platelet Vol. 12.3 fl (6.2-12.0); Monocyte# 0.22 X10^3/uL; NRBC Flagged by Analyzer 0 % (0-5); Neutrophil # 4.15 X10^3/uL (2.7-7.7); Neutrophil % 76.1 % (47-70); Platelet Count 187 K/mm3 (150-450); RBC Distribution Width CV 16.3 % (11.6-14.6); Red Blood Count 4.28 M/mm3 (4.6-6.2); White Blood Count 5.5 K/mm3 (4.4-11.0)
[2022-12-20 09:06] LABS: ALB/GLOB Ratio 1.2 RATIO (0.9-2.4); AST(SGOT) 22 U/L (15-37); Alanine Aminotransfer ALT/SGPT 18 U/L (16-61); Albumin, Serum 3.4 g/dL (3.2-5.0); Alkaline Phosphatase 105 U/L (45-117); Anion Gap 9 (5-15); BUN 30 mg/dL (7-18); BUN/Creat Ratio 10.3 RATIO (10-20); Calcium,Total 8.7 mg/dL (8.5-10.1); Chloride 109 mmol/L (98-107); Creatinine, Serum 2.91 mg/dL (0.70-1.30); EST Glomerular Filtration Rate 23 mL/min (>60); Est Glom Filt Rate - Afr Amer 28 mL/min (>60); Estimated Creatinine Clearance 28.89 ml/min; Globulin 2.9 g/dL (2.2-4.2); Glucose 95 mg/dL (74-106); Lipase 60 U/L (73-393); Potassium 4.3 mmol/L (3.5-5.1); Protein, Total 6.3 g/dL (6.4-8.2); Sodium Level 139 mmol/L (136-145)
[2022-12-20 12:22] LABS: Bacteria 0 SEEN /hpf (None Seen); Mucous, Urine 0 SEEN /hpf (<or=2+); Red Blood Cells-Urine 0 SEEN /hpf (0-5); Squamous Epithelial Cells - UA 0 SEEN /hpf (0-5); White Blood Cells 0 SEEN /hpf (0-5)
[2022-12-20 12:25] LABS: Color, Urine Yellow (Yellow); Glucose, Dipstick Normal (Normal); Ketone-Dipstick 5 mg/dl (Negative); Leukocyte Esterase-Dipstick 25 /ul (Negative); Nitrite-Dipstick Negative (Negative); Occult Blood-Urine 10 /ul (Negative); Protein-Dipstick 100 mg/dl (Negative); Urine Bilirubin Dipstick Negative (Negative); Urine Clarity Clear (Clear); Urine Urobilinogen 1 mg/dl (Normal)
--- NOTE | 2022-12-20 13:32 | HP.PCM_ITS ---
HPI - General General Date of Admission: 12/20/22 Date of Service: 12/20/22 Chief Complaint: Severe weakness. HPI Narrative The patient is a 62 y/o M w/ PMHx: CKD stage IV, Chronic anemia/iron deficiency anemia, Anxiety and Depression, CAD s/p PCI, HTN, HLD, Chew tobacco use, Diabetes mellitus type II, Hx CVA who presents to the [facility] ED on 12/20/22 with history of primarily significant weakness over the last 2 to 3 days reported per himself is severe with falls at home with increased fatigue and malaise with no specific recent URI type symptoms but he does report that he is been coughing significantly with any oral food intake prompting eventual ED evaluation. He denies dyspnea but in the ED upon evaluation he is using mild accessory muscles. He also denies any coughing but while evaluating the patient coughed several times. Work-up in the ED included T98.4, heart rate 87, BP 152/112, respiratory rate 18, 86% on room air with improvement to 98% on 2 L nasal cannula, CBC with WC 5.5, 11.4, MCV 87.6, platelet 197 with lymphopenia, CMP with chloride 109, BUN/creatinine 30/2.91, unremarkable hepatic profile, lipase 60, urinalysis with no obvious evidence of UTI with 5 ketone, normal glucose, CT of the brain with chronic involutional changes, rapid COVID and influenza antigens negative, CXR obtained and concern for possible BL bibasilar PNA versus CHF with final read pending upon evaluation, EKG with SR with no acute evidence of ischemia. In the ED given concerns for aspiration patient administered IV Rocephin and Flagyl. [facility] Medical History (Updated 12/20/22 @ 18:[address] Tiara Pritchard MD) Acute cerebrovascular accident of cerebellum Ankle fracture, left Atherosclerotic heart disease of [place] coronary artery without angina pectoris CKD (chronic kidney disease), stage IV Essential hypertension History of left heart catheterization (LHC) (~02/26/19) Neck fracture PFO (patent foramen ovale) Presence of stent in coronary artery (~02/26/19) Pure hypercholesterolemia Smokeless tobacco use Tobacco chew use Uncontrolled type 2 diabetes mellitus Home Medications nitroglycerin 0.4 mg sublingual tablet 0.4 mg sublingual Q5M PRN Chest Pain #0 tabs 03/07/22 [Rx Last Taken Unknown] acetaminophen 325 mg tablet 650 mg PO Q4H PRN Pain 06/05/22 [History Last Taken Unknown] amlodipine 10 mg tablet 10 mg PO DAILY heart 06/05/22 [History Last Taken Unknown] cholecalciferol (vitamin D3) 1,250 mcg (50,000 unit) capsule 1,250 mcg PO QWEEK supplement 06/05/22 [History Last Taken Unknown] ferrous sulfate 325 mg (65 mg iron) tablet (FeroSul) 325 mg PO BID supplement 06/05/22 [History Last Taken Unknown] magnesium hydroxide 400 mg/5 mL oral suspension (Milk of Magnesia) 30 ml PO DAILY PRN Constipation 06/05/22 [History Last Taken Unknown] mirtazapine 15 mg tablet 15 mg PO QHS sleep 06/05/22 [History Last Taken 12/19/22] tramadol 50 mg tablet 50 mg PO Q6H PRN Pain 06/05/22 [History Last Taken Unknown] ondansetron 4 mg disintegrating tablet 4 mg PO Q8H PRN PRN Nausea #10 tabs 11/17/22 [Rx Last Taken Unknown] atorvastatin 40 mg tablet 40 mg PO QHS cholesterol 12/20/22 [History Last Taken 12/19/22] carvedilol 25 mg tablet 25 mg PO BID heart 12/20/22 [History Last Taken Unknown] clopidogrel 75 mg tablet 75 mg PO DAILY blood thinner 12/20/22 [History Last Taken 12/19/22] isosorbide mononitrate 30 mg tablet,extended release 24 hr 30 mg PO DAILY heart 12/20/22 [History Last Taken 12/19/22] Allergy/AdvReac Type Severity Reaction Status Date / Time ampicillin Allergy Swelling Verified 06/05/22 14:32 fish derived Allergy Swelling Verified 08/25/22 13:38 [seafood - derived] ibuprofen [From Motrin] Allergy Swelling Verified 06/05/22 14:32 shellfish derived Allergy Swelling Verified 08/25/22 13:38 [seafood - shellfish] Family History (Updated 12/20/22 @ 18:[address] Tiara Pritchard MD) Mother Heart disease Hypertension Father Heart disease Hypertension Surgical History H/O bilateral hip replacements Presence of coronary angioplasty implant and graft (~02/26/19) Social History (Updated 12/20/22 @ 18:[address] Tiara Pritchard MD) household members: none Smoking Status: Former smoker Smokeless tobacco user: chewing tobacco alcohol intake: never substance use type: does not use caffeine: Yes ROS ROS Narrative Admission Review of Systems: CONSTITUTIONAL: No weight loss, fever, chills, + weakness or fatigue. HEENT: Eyes: No visual loss, blurred vision, double vision or yellow sclerae. Ears, Nose, Throat: No hearing loss, sneezing, congestion, runny nose or sore throat. SKIN: + Diffuse locations on the extremities of petechia of unclear duration, occasional staged ecchymoses. CARDIOVASCULAR: No chest pain, chest pressure or chest discomfort, palpitations, edema, orthopnea, syncopal events. RESPIRATORY: + Reports coughing with food, denies dyspnea but increased RR and mild accessory muscle usage in the ED. No marked sputum, wheezing, hemoptysis. GASTROINTESTINAL: + anorexia, No nausea, vomiting or diarrhea, abdominal pain, melena, BRBPR. GENITOURINARY: No dysuria, frequency, urgency or retention. NEUROLOGICAL: + Prior CVA involving the cerebellum with chronic imbalance issues, altered speech, frequent falls. No headache, dizziness, syncope, paralysis, change in bowel or bladder control, seizure. MUSCULOSKELETAL: + muscle, back pain, joint pain or stiffness. HEMATOLOGIC: + anemia, bleeding or bruising. LYMPHATICS: No enlarged nodes. No history of splenectomy. PSYCHIATRIC: No history of depression or anxiety. ENDOCRINOLOGIC: No reports of sweating, cold or heat intolerance. No polyuria or polydipsia. ALLERGIES: + history of from description possibly angioedema. Vital Signs Vital Signs Vital Signs: 12/20/22 08:10 12/20/22 08:24 12/20/22 08:19 Temperature 98.4 F Temperature Source Temporal Pulse Rate 87 Respiratory Rate 18 Respiratory Pattern Normal Blood Pressure 152/112 H Blood Pressure Mean 125 Pulse Ox 86 Oxygen Delivery Method Room Air Oxygen Flow Rate (L/min) 12/20/22 08:43 12/20/22 10:07 Temperature Temperature Source Pulse Rate 84 Respiratory Rate 16 Respiratory Pattern Blood Pressure 168/90 H Blood Pressure Mean 116 Pulse Ox 98 98 Oxygen Delivery Method Nasal Cannula Nasal Cannula Oxygen Flow Rate (L/min) 3 2 Weight Weight: 175 lb 11.335 oz Body Mass Index (BMI) 23.8 Physical Exam Narrative Physical Examination: General: Awake, alert, oriented to self, place and recent events, extremely soft-spoken, altered speech which he notes is chronic, remains cooperative, seated upright in the ED bed, mildly increased respiratory rate and some accessory muscle usage but no distress. Skin: Normal color, normal turgor, no icterus, no cyanosis except for occasional staged ecchymoses, abrasions, petechia noted to bilateral lower sy regions as well as bilateral forearms as well as a small section on the face that appears as though it might have been a pressure anup or an abrasion on the left forehead. HEENT: AT/NC, EOMI, PERRLA, mildly dry MM, no carotid bruits, difficult to assess given facial hair but appears + JVD noted. Lungs: Diminished, decreased effort, mildly increased respiratory rate and some accessory muscle usage but no distress, mild potential rales at bases although difficult given very diminished, no obvious rhonchi or wheezing Heart: Currently regular rate and rhythm; no gallop, rub audible. Abdomen: Soft, NTTP, ND, distant normal BS, no HSM. Extremities: No cyanosis, clubbing, mild peripheral distal edema, nonpitting, see skin Neurological: Patient awake, alert, oriented as noted, cognitive function suspect baseline intact with prior underlying deficits from previous stroke; pupils equally reactive to light and accommodation, cranial nerves grossly normal, chronic deficits with speech suspected from prior stroke, moving extremities but very limited secondary to severity of weakness, strength severely globally decreased. Psychiatric: Affect appears flat, fatigued, no acute evidence of depressive or anxiety feelings. Results Lab / Micro Data Result Diagrams: 12/20/22 08:40 12/20/22 08:40 Labs: Laboratory Results - last 24 hr 12/20/22 08:40: WBC 5.5, RBC 4.28 L, Hgb 11.4 L, Hct 37.5 L, MCV 87.6, MCH 26.6 L, MCHC 30.4 L, RDW Std Deviation 52.0 H, RDW Coeff of Ave 16.3 H, Plt Count 187, MPV 12.3 H, Immature Gran % (Auto) 0.500, Neut % (Auto) 76.1 H, Lymph % (Auto) 15.0 L, Schley % (Auto) 4.0, Eos % (Auto) 3.5, Baso % (Auto) 0.9, Absolute Neuts (auto) 4.2, Absolute Lymphs (auto) 0.82 L, Nucleated RBC % 0 12/20/22 08:40: Sodium 139, Potassium 4.3, Chloride 109 H, Carbon Dioxide 21.0, Anion Gap 9, BUN 30 H, Creatinine 2.91 H, Estim Creat Clear Calc 28.89, Est GFR (MDRD) Af Amer 28 L, Est GFR (MDRD) Non-Af 23 L, BUN/Creatinine Ratio 10.3, Glucose 95, Calcium 8.7, Total Bilirubin 0.80, AST 22, ALT 18, Alkaline Phosphatase 105, Total Protein 6.3 L, Albumin 3.4, Globulin 2.9, Albumin/Globulin Ratio 1.2, Lipase 60 L 12/20/22 08:40: Ammonia 29.0 12/20/22 12:10: Urine Color Yellow, Urine Clarity Clear, Urine pH 5.0, Ur Specific [place] 1.020, Urine Protein 100 H, Urine Glucose (UA) Normal, Urine Ketones 5 H, Urine Occult Blood 10 H, Urine Nitrite Negative, Urine Bilirubin Negative, Urine Urobilinogen 1 H, Ur Leukocyte Esterase 25 H, Urine RBC 0 SEEN, Urine WBC 0 SEEN, Ur Squamous Epith Cells 0 SEEN, Urine Bacteria 0 SEEN, Urine Mucus 0 SEEN Micro: Microbiology 12/20/22 08:35 Nasal Secretion SARS-CoV-2 & FLU Antigen (Rapid) - Final Radiology Impression Brain CT 12/20/22 08:18 IMPRESSION: Chronic involutional changes of the brain. Electronically Signed: Randy Murrell MD at 10:06 EDT , Assessment & Plan Assessment/Plan (1) Hypoxia: PLAN: Plan The patient is a 62 y/o M w/ PMHx: CKD stage IV, Chronic anemia/iron deficiency anemia, Anxiety and Depression, CAD s/p PCI, HTN, HLD, Chew tobacco use, Diabetes mellitus type II, Hx CVA who presents to the [facility] ED on 12/20/22 with history of primarily significant weakness over the last 2 to 3 days reported per himself is severe with falls at home with increased fatigue and malaise with no specific recent URI type symptoms but he does report that he is been coughing s ignificantly with any oral food intake prompting eventual ED evaluation. #1. Adult FTT secondary to Acute Hypoxia, Possibly BL, L > R Bibasilar PNA with possibly aspiration etiology, suspect Component CHF Exacerbation, unclear type: Will admit to PCU, maintain on oxygen with wean as tolerated to room air, PRN albuterol, maintained on IV Rocephin and Flagyl given reported frequent coughing with food intake in case of aspiration component, HOB, IS parameters w/ pending sputum cultures, full respiratory viral panel, COVID PCR and urine antigens. Will maintain on cardiac telemetry, obtain cardiac enzyme series, initiate IV lasix diuresis w/ planned CXR repeat in AM to reassess for infiltrates, procalcitonin requested as well as BNP, monitor I/Os, continue medical therapy, obtain TSH and magnesium level. Most recent ECHO noted remotely thus repeat requested. Bld cx x 2 obtained in the ED. PT/OT/ST/CM consultations for discharge planning. #2. Lower extremity peripheral anterior sy as well as bilateral upper extremity forearm petechiae, unclear etiology: Patient is unable to give in formation on the duration that these have been present, nontender to palpation, no marked thrombocytopenia evidence, stable anemia from current presentation compared to previous although patient on UA does have urine occult blood 10 with urobilinogen 1 thus could be renal involvement, coags requested, will continue to monitor and investigate further pending #1. #3. Appearance Chronic Kidney Disease Stage IV: Admission BUN/Cr 30/2.91, baseline renal function appears primarily 2.3-2.8 but did bump up recently 11/17/22-3.43, currently trending down, repeat BMP in AM. Patient with no prior notes from Nephrology with suspicion that he has been lost to follow-up. Will request consultation with Nephrology, obtain FeNa, renal US and as noted #2 some concern that maybe there could be a renal involvement as part of the etiology for his petechia. #4. CAD: Status post PTCA/REYNA to Diagonal 02/26/19, will continue aspirin, plavix cautious given unclear etiology for his diffuse petechia, statin, Coreg, not on DAMIÁN inhibitor/ARB. #5. Hx CVA: Patient with history of prior stroke reported to have involvement of the cerebellum with suspected some chronic speech issues ongoing, will continue aspirin, plavix cautious given unclear etiology for his diffuse petechia, statin, hypertensive regimen as noted, clarifying diabetes prior chart reported history with A1c. #6. Chart reported history Diabetes mellitus type II: Per current list patient is not on any medications, will hold off on ADA/insulin sliding scale/Accu-Cheks and obtain hemoglobin A1c with institution of these items if this is notable and consistent with diabetes. #7. Hypertension: Continue home regimen including isosorbide, Coreg, amlodipine, PRN hydralazine. #8. Hyperlipidemia: We will continue patient on statin therapy. FLP in AM. #9. Chronic normocytic anemia/iron deficiency anemia: Admission hemoglobin 11.4, baseline prior appears primarily more recently 10-11, stable, continue to trend, continue iron supplementation. #10. Anxiety and depression: We will continue patient home mirtazapine home regimen. #11. Chew tobacco use: Encouraged tobacco cessation, currently uses 1.5 cans over the course of 4-5 days. #12. DVT Prophylaxis: Heparin cautiously give him petechia as noted, low threshold to discontinue if these appear to worsen or any onset thrombocytopenia. #13. CODE status: Patient does not have healthcare power of tax associate attorney nor living will in place. He does report that if something happened and he was unable to make his medical decisions he would want his brother to be contacted to do so. Discussed CODE status at length including difference between FULL code, DNR-CCA and DNR-CC status. Following discussions about the differences in these status, requested Full Code status. Advanced Care Planning Face to Face Time: 16 minutes. Admission Evaluation Time spent evaluating chart, patient history, patient evaluation, care planning and discussion with specialists: 75 minutes. Charges/Coding Visit Charges Inpatient E&M: 97509 Init Hosp L3 Procedures Hospitalists Procedures: 33214 Advncd Care Plan 30 Min
--- NOTE | 2022-12-20 14:05 | RAD_ITS ---
STUDY: X-RAY CHEST REASON FOR EXAM: Male, 62 years old. Hypoxia TECHNIQUE: Single AP portable view of the chest. COMPARISON: Comparison is made with prior study March 04, 2022. FINDINGS: EKG electrodes are seen. Vascular congestion and CHF. Increased markings at the left lung base suggestive of possible superimposed atelectasis and/or infiltrate. Blunting of both costophrenic angles. There is borderline cardiomegaly. Normal mediastinum and gilbert. Normal visualized pulmonary arteries. There is atherosclerotic calcification of the aortic arch with tortuosity. There are diffuse degenerative changes of the visualized thoracic spine. Normal visualized ribs, clavicles, and shoulders. There is no demonstrated abnormality of the visualized soft tissue structures of the upper abdomen. RAD/Chest 1 View (Portable) IMPRESSION: Borderline cardiomegaly. Findings suggestive of CHF with possible atelectasis and/or infiltrate in the left lower lobe. Electronically Signed: Randy Murrell MD at 14:30 EDT ,
--- NOTE | 2022-12-20 14:08 | CM.ED ---
Addendum entered by Autumn Sampson 12/20/22 15:37: SW informed Clifton with APS the patient is being admitted to [facility]. Unit SW to follow up regarding discharge plan. JACKY Mckeon Original Note: Social Work Note Referral Source: VNANA Mccord Referral Reason: APS concerns VANNA Mccord met with SW and reports concerns regarding patient's ability to care for himself explaining patient has visible bed bugs on him as well as crawling on the hospital bed. RN also reports patient had stickers on him from his previous visit to [facility] at the beginning of November. VANNA Rivas confirmed concerns and explained she spoke with patient's brother who reports the patient's home was sprayed for bed bugs yesterday and will contact the landlord about spraying again. Evelyn also reports patient's brother reports the patient has been refusing to eat. KAREN contacted Clifton with APS and provided demographic information and reviewed concerns reported by patient's RN. Clifton requesting to be informed if patient is admitted and the discharge plan. JACKY Mckeon
[2022-12-20] MEDS: Ceftriaxone 1 GM/50 ML BAG IV (15:18)
[2022-12-20 15:25] LABS: Lactic Acid 1.6 mmol/L (0.4-1.9)
[2022-12-20 16:01] LABS: Magnesium 2.2 mg/dL (1.6-2.6)
[2022-12-20 17:50] LABS: Troponin-I HS 31 pg/mL (3.0-78.0)
[2022-12-20 18:21] LABS: Procalcitonin 0.08 ng/mL (0.00-0.09)
[2022-12-20] MEDS: Furosemide 40 MG/4 ML Vial IV (18:37)
[2022-12-20] MEDS: Ferrous Sulfate 325 MG Tablet PO (18:38)
[2022-12-20] MEDS: 0.9% Saline Lock 10 ML Syringe IV (18:38)
[2022-12-20 19:57] LABS: Troponin-I HS 32 pg/mL (3.0-78.0)
[2022-12-20] MEDS: Atorvastatin Calcium 40 MG Tablet PO (21:53)
[2022-12-20] MEDS: Carvedilol 25 MG Tablet PO (21:53)
[2022-12-20] MEDS: Heparin Injection (Vial) 5,000 UNIT/ML VIAL 5000 UNIT SC (21:53)
[2022-12-20] MEDS: Mirtazapine 15 MG Tablet PO (21:53)
[2022-12-20 23:42] LABS: Troponin-I HS 32 pg/mL (3.0-78.0)
[2022-12-21] VITALS (8 sets, daily range): BP systolic 120–147; BP diastolic 92–108; PULSE 73–82; RESP 18–20; TEMP 35.9–36.6; O2SAT 93–100; BMI 22.5
[2022-12-21] MEDS: metroNIDAZOLE 500 MG/100 ML BAG 100 MG IV ×3 (05:45→21:25)
[2022-12-21 05:55] LABS: Absolute Lymphocyte Count 0.85 X10^3/uL (0.83-4.51); Absolute Neutrophil Count 8.6 X10^3/uL (2.0-7.7); Basophil# 0.05 X10^3/uL; Basophil% 0.5 % (0-1); Eosinophil# 0.17 X10^3/uL; Eosinophils% 1.6 % (0-5); Hematocrit 36.8 % (40-54); Lymphocyte # 0.85 X10^3/ul (0.83-4.51); Lymphocyte % 8.2 % (19-41); Mean Corp Hgb Conc 29.9 g/dL (32-36); Mean Corpuscular Hgb 26.6 pg (27.0-32.0); Mean Corpuscular Volume 89.1 fL (80-94); Mean Platelet Vol. 12.5 fl (6.2-12.0); Monocyte# 0.64 X10^3/uL; Monocyte% 6.2 % (0-10); NRBC Flagged by Analyzer 0 % (0-5); Neutrophil # 8.61 X10^3/uL (2.7-7.7); Neutrophil % 83.1 % (47-70); Platelet Count 192 K/mm3 (150-450); RBC Distribution Width CV 16.6 % (11.6-14.6); RBC Distribution Width SD 53.3 fl (35.1-43.9); Red Blood Count 4.13 M/mm3 (4.6-6.2); White Blood Count 10.4 K/mm3 (4.4-11.0)
--- NOTE | 2022-12-21 05:55 | ECHOD_ITS ---
Reason For Study: CHF Procedure This was a 2D Doppler, Color Flow transthoracic echocardiogram. The exam was abbreviated due to the COVID 19 protocol. Exam performed portable in patient room. Left Ventricle Normal size and thickness. Moderately severe global left ventricular systolic dysfunction. The left ventricular ejection fraction is 35 %. Unable to assess diastolic function based on available data. Right Ventricle Severely dilated right ventricle. Severe global right ventricular systolic dysfunction. Atria The left atrium is severely enlarged. The right atrium is severely enlarged. Mitral Valve No mitral annular calcification. Mild-Moderate (1-2+) mitral valve insufficiency. Tricuspid Valve Severe (4+) tricuspid valve insufficiency. Pulmonary artery systolic pressure is 90 mmHg. Severe pulmonary hypertension. Aortic Valve Normal aortic valve. Pulmonic Valve The pulmonic valve is not well visualized. Great Vessels Normal sized aortic root. Pericardium/Pleural Trivial pericardial effusion. MMode/2D Measurements & Calculations LVIDd: 4.9 cm IVSd: 0.95 cm Ao root diam: 3.6 cm LVIDs: 4.5 cm LVPWd: 0.68 cm RVDd: 4.7 cm FS: 7.3 % LAV(MOD-sp4): 119.1 ml LVAd ap4: 30.9 cm2 SV(MOD-sp4): 39.2 ml LVLd ap4: 7.8 cm EDV(MOD-sp4): 101.2 ml EDV(sp4-el): 104.4 ml LVAs ap4: 23.3 cm2 LVLs ap4: 7.3 cm ESV(MOD-sp4): 62.0 ml ESV(sp4-el): 63.0 ml EF(MOD-sp4): 38.7 % EF(sp4-el): 39.7 % SV(sp4-el): 41.4 ml LA A4 area: 31.4 cm2 LA dimension(2D): 4.8 cm RA A4 area: 31.4 cm2 Doppler Measurements & Calculations MV E max tray: 90.1 cm/sec MV V2 max: 102.0 cm/sec TR max tray: 446.3 cm/sec MV max P.2 mmHg TR max P.7 mmHg MV V2 mean: 43.7 cm/sec MV mean P.99 mmHg MV V2 VTI: 22.8 cm ECHO/Echo Complete Interpretation Summary Moderately severe global left ventricular systolic dysfunction. The left ventricular ejection fraction is 35 %. Severely dilated right ventricle. Severe global right ventricular systolic dysfunction. The left atrium is severely enlarged. The right atrium is severely enlarged. Mild-Moderate (1-2+) mitral valve insufficiency. Severe (4+) tricuspid valve insufficiency. Pulmonary artery systolic pressure is 90 mmHg. Severe pulmonary hypertension. Ordering Physician: Tiara Pritchard Referring Physician: Rosario Arroyo Performed By: Maria Alvarez RCS
--- NOTE | 2022-12-21 05:55 | RAD_ITS ---
STUDY: X-RAY CHEST REASON FOR EXAM: Male, 62 years old. ? CHF vs PNA TECHNIQUE: AP and lateral views of the chest. COMPARISON: Comparison is made with prior study of December 20, 2022. FINDINGS: EKG electrodes are seen. Mild improvement of the CHF with the increasing atelectasis and/or infiltrates at the lung bases. Blunting of both costophrenic angles. There is mild cardiac enlargement. Normal mediastinum and gilbert. Normal visualized pulmonary arteries. There is atherosclerotic calcification of the aortic arch with tortuosity. There are diffuse degenerative changes of the visualized thoracic spine. Normal visualized ribs, clavicles, and shoulders. There is no demonstrated abnormality of the visualized soft tissue structures of the upper abdomen. RAD/Chest PA and Lateral IMPRESSION: Improvement in the CHF although there has been progressive bibasilar atelectasis and/or infiltrates. Electronically Signed: Randy Murrell MD at 14:07 EDT ,
--- NOTE | 2022-12-21 05:55 | US_ITS ---
STUDY: RENAL ULTRASOUND - COMPLETE REASON FOR EXAM: Male, 62 years old. Renal disease TECHNIQUE: Ultrasound evaluation of the kidneys was performed with real-time and static hammond-scale imaging. COMPARISON: None. FINDINGS: RIGHT KIDNEY: Normal location of the right kidney, which is normal in size. The right kidney measures 10 cm x 5.5 cm x 5.2 cm. There is a normal cortex of the right kidney. The renal cortex measures 1.7 cm. There is no right renal mass or cyst. There are no right renal calculi. There is no right hydronephrosis. DISTAL RIGHT URETER: There is non-visualization of the distal right ureter. There is no demonstrated right ureterovesical junction calculus. There is no demonstrated right ureteral jet. LEFT KIDNEY: Normal location of the left kidney, which is normal in size. The left kidney measures 9 cm x 4.4 cm x 5.1 cm. There is a normal cortex of the left kidney. The renal cortex measures 1.7 cm. There is no left renal mass or cyst. There are no left renal calculi. There is no left hydronephrosis. DISTAL LEFT URETER: There is non-visualization of the distal left ureter. There is no demonstrated left ureterovesical junction calculus. There is no demonstrated left ureteral jet. BLADDER: The distended urinary bladder has a volume of 1100 ml. There is a normal wall thickness of the distended urinary bladder. There is no demonstrated mass within the urinary bladder. There are no demonstrated bladder calculi. US/Kidney and Bladder IMPRESSION: Normal ultrasound of the kidneys and urinary bladder. Electronically Signed: Randy Murrell MD at 12:38 EDT ,
[2022-12-21 06:14] LABS: International Normalized Ratio 1.4; Partial Thromboplast Time 32.8 Seconds (24.1-36.2); Prothrombin Time (Protime)PT. 16.5 SECONDS (11.7-14.9)
[2022-12-21 06:42] LABS: ALB/GLOB Ratio 1.1 RATIO (0.9-2.4); AST(SGOT) 20 U/L (15-37); Alanine Aminotransfer ALT/SGPT 17 U/L (16-61); Alkaline Phosphatase 96 U/L (45-117); Anion Gap 8 (5-15); BUN 31 mg/dL (7-18); BUN/Creat Ratio 10.2 RATIO (10-20); Chloride 112 mmol/L (98-107); Cholesterol 84 mg/dL (200); Creatinine, Serum 3.03 mg/dL (0.70-1.30); EST Glomerular Filtration Rate 22 mL/min (>60); Est Glom Filt Rate - Afr Amer 27 mL/min (>60); Estimated Creatinine Clearance 26.96 ml/min; Globulin 2.7 g/dL (2.2-4.2); Glucose 96 mg/dL (74-106); High Density Lipoprotein 27 mg/dL; Potassium 4.5 mmol/L (3.5-5.1); Protein, Total 5.7 g/dL (6.4-8.2); Sodium Level 139 mmol/L (136-145); Thyroid Stim Hormone (TSH) 1.82 uIU/mL (0.358-3.74); Triglycerides 79 mg/dL; Very Low Density Lipoprotein 16 mg/dL (5-40)
[2022-12-21 08:29] LABS: Hemoglobin A1c 6.1 % (3.8-5.6)
--- NOTE | 2022-12-21 09:36 | PN.HOSP_ITS ---
Subjective Subjective Feels like he is doing little bit better but he says that he is here because he fell when questioned he says that he passed out Objective Data Objective Data Vital Signs: Vital Signs Temp Pulse Resp BP Pulse Ox O2 Del Method O2 Flow Rate 96.7 F L 80 20 H 138/105 H 100 Room Air 3 12/21/22 07:35 12/21/22 07:35 12/21/22 07:35 12/21/22 07:35 12/21/22 07:35 12/21/22 07:35 12/20/22 21:49 Oxygen Flow Rate (L/min) 3 Oxygen Delivery Method Room Air Weight: 166 lb 3.657 oz Body Mass Index (BMI) 22.5 Intake & Output: Intake and Output for Last 24 Hours 12/20/22 12/21/22 12/22/22 03:59 03:59 03:59 Intake Total 1440 / 1440 Output Total 500 / 500 Balance 940 / 940 Lab / Micro Data Result Diagrams: 12/21/22 04:44 12/21/22 04:44 Labs: Laboratory Results - last 24 hr 12/20/22 08:40: B-Natriuretic Peptide 2273.0 H 12/20/22 08:40: Magnesium 2.2 12/20/22 12:10: Urine Color Yellow, Urine Clarity Clear, Urine pH 5.0, Ur Specific [place] 1.020, Urine Protein 100 H, Urine Glucose (UA) Normal, Urine Ketones 5 H, Urine Occult Blood 10 H, Urine Nitrite Negative, Urine Bilirubin Negative, Urine Urobilinogen 1 H, Ur Leukocyte Esterase 25 H, Urine RBC 0 SEEN, Urine WBC 0 SEEN, Ur Squamous Epith Cells 0 SEEN, Urine Bacteria 0 SEEN, Urine Mucus 0 SEEN 12/20/22 12:10: Urine Creatinine 145.00 12/20/22 14:42: Lactic Acid 1.6 12/20/22 17:00: Procalcitonin 0.08 12/20/22 17:00: Troponin I High Sens 31 12/20/22 18:58: Troponin I High Sens 32 12/20/22 23:09: Troponin I High Sens 32 12/21/22 04:44: WBC 10.4, RBC 4.13 L, Hgb 11.0 L, Hct 36.8 L, MCV 89.1, MCH 26.6 L, MCHC 29.9 L, RDW Std Deviation 53.3 H, RDW Coeff of Ave 16.6 H, Plt Count 192, MPV 12.5 H, Immature Gran % (Auto) 0.400, Neut % (Auto) 83.1 H, Lymph % (Auto) 8.2 L, [place] % (Auto) 6.2, Eos % (Auto) 1.6, Baso % (Auto) 0.5, Absolute Neuts (auto) 8.6 H, Absolute Lymphs (auto) 0.85, Nucleated RBC % 0 12/21/22 04:44: Sodium 139, Potassium 4.5, Chloride 112 H, Carbon Dioxide 19.0 L , Anion Gap 8, BUN 31 H, Creatinine 3.03 H, Estim Creat Clear Calc 26.96, Est GFR (MDRD) Af Amer 27 L, Est GFR (MDRD) Non-Af 22 L, BUN/Creatinine Ratio 10.2, Glucose 96, Calcium 8.0 L, Total Bilirubin 0.50, AST 20, ALT 17, Alkaline Phosphatase 96, Total Protein 5.7 L, Albumin 3.0 L, Globulin 2.7, Albumin/Globulin Ratio 1.1, Triglycerides 79, Cholesterol 84, LDL Cholesterol 41, VLDL Cholesterol 16, HDL Cholesterol 27 L, TSH 1.82 12/21/22 04:44: Hemoglobin A1c 6.1 H 12/21/22 04:44: PT 16.5 H, INR 1.4, APTT 32.8 Micro: Microbiology 12/20/22 16:54 Mucosa - Nasopharyngeal Respiratory Panel (PCR) - Final 12/20/22 12:10 Urine, Clean Catch Legionella Antigen - Final 12/20/22 12:10 Urine, Clean Catch Streptococcus pneumoniae Antigen (M - Final 12/20/22 08:35 Nasal Secretion SARS-CoV-2 & FLU Antigen (Rapid) - Final Radiography Diagnostic Testing: Radiology Impression Brain CT 12/20/22 08:18 IMPRESSION: Chronic involutional changes of the brain. Electronically Signed: Randy Murrell MD at 10:06 EDT , Chest X-Ray 12/20/22 14:05 IMPRESSION: Borderline cardiomegaly. Findings suggestive of CHF with possible atelectasis and/or infiltrate in the left lower lobe. Electronically Signed: Randy Murrell MD at 14:30 EDT , Physical Exam Narrative General: Alert, Oriented x3, Cooperative, No apparent distress HEENT: Atraumatic, PERRLA, EOMI, Normocephalic Oral: Moist Mucosa Neck: Supple, No JVD Lungs: Diminished, Normal air movement, No rhonchi, No wheeze, No rales Cardiovascular: Regular rate, Regular Rhythm, Normal S1, Normal S2, No murmurs Abdomen: Soft, Non Tender, Non-Distended, No Hepato-splenomegaly Extremities: No edema, Capillary Refill Less than 3 Seconds Skin: Multiple small abrasions consistent with frequent falls Musculoskeletal: No Tenderness to Palpation of Joints or Extremities Neurological: Cranial nerves II-XII grossly intact, Motor Exam 5/5 strength throughout, Sensory exam intact to light touch and pain Psych/Mental Status: Flat affect, Appropriate Assessment & Plan Assessment/Plan (1) Hypoxia: PLAN: Plan 1. Adult failure to thrive with debility and inability to complete ADLs ? Not sure as to the etiology of his weakness, chest x-ray shows possible volume overload versus infiltrate, he is afebrile without a leukocytosis repeat chest x-ray is pending ? PT/OT ? Given his explanation of passing out we will obtain an echo ? There is a possibility of aspiration based on the admission note that he coughs with food so he is on Rocephin and Flagyl will continue for another 24 to 48 hours pending results of infectious work-up 2. CAD status post stent/history of CVA/HTN/HLD ? We will continue with his home blood pressure medications ? Blood pressures are currently stable ? Continue with Lipitor ? Continue with Plavix, he is not on aspirin at home but it was started on admission ? 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 Given the findings on the chest x-ray with possible volume overload we will continue with Lasix but will drop him down to daily dosing given his renal failure 3. Iron deficiency anemia ? Stable ? Continue with his iron replacement 4. Anxiety/depression ? Stable ? Continue with the medications DVT: Heparin Charges/Coding Visit Charges Inpatient E&M: 91563 Subs Hosp L2
[2022-12-21] MEDS: Isosorbide Mononitrate 30 MG Tablet PO (10:00)
[2022-12-21] MEDS: Clopidogrel Bisulfate 75 MG Tablet PO (10:00)
[2022-12-21] MEDS: Carvedilol 25 MG Tablet PO ×2 (10:00→21:21)
[2022-12-21] MEDS: Multivitamins,Therapeutic Tablet 1 TABLET PO (10:00)
[2022-12-21] MEDS: Aspirin E.C. 81 MG Tablet PO (10:01)
[2022-12-21] MEDS: Heparin Injection (Vial) 5,000 UNIT/ML VIAL 5000 UNIT SC ×2 (10:01→21:22)
[2022-12-21] MEDS: Ferrous Sulfate 325 MG Tablet PO ×2 (10:01→19:23)
[2022-12-21] MEDS: Furosemide 40 MG/4 ML Vial IV (10:02)
[2022-12-21] MEDS: amLODIPine 10 MG Tablet PO (10:02)
[2022-12-21 10:26] LABS: Urine Sodium 108 mmol/L (Not Establ.)
--- NOTE | 2022-12-21 10:55 | PCM.CONS.R ---
Documented by User: KENYA Contreras 12/21/22 11:23 Assessment & Plan Assessment/Plan (1) CKD (chronic kidney disease), stage IV: (2) Aspiration pneumonia: (3) Type 2 diabetes mellitus: PLAN: Plan We were consulted for evaluation of renal insufficiency. In reviewing past creatinine trends, patient has had elevated serum creatinine since 2019. In May 2022 baseline serum creatinine ranging around 2.5 to 2.8 mg/dL. Patient did have lab work on November 17 which showed a creatinine of 3.43 mg/dL. On admission, December 20 creatinine 2.91 mg/dL and today patient's creatinine is 3.03 mg/dL, estimated GFR 22 mL/min. This appears near baseline CKD for patient. Patient may have CKD from diabetic nephropathy; last hemoglobin A1c 6.1%, but to note patient had elevated A1c's above 10% for many years. Renal ultrasound has been ordered. Repeat CXR pending. Urinalysis showed 100 protein, 10 occult blood, no bacteria or blood. We will obtain urine protein creatinine ratio. We will obtain some renal serologies. In 2016 JALEN, DS DNA, hernández antibody not reportable. 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 Potassium and acid-base acceptable, patient appears near euvolemic and he is nonoliguric. Patient is on IV antibiotics, blood cx pending. Reviewed patient home medication list, he had not been on any diuretics, DAMIÁN, ARB or NSAIDs. Current blood pressures acceptable. Echo in 2019 EF 50%, normal LV size, normal RV size, normal systolic function, evidence of diastolic dysfunction. Further orders forthcoming as hospitalization evolves, thank you for allowing us to participate in the care of Mr. Livingston. HPI Consult Data Date of Consult: 12/21/22 HPI Narrative HPI Narrative: KALYANI LIVINGSTON, is a 62 M with past medical history significant for diabetes mellitus type 2, hypertension, iron deficiency anemia, depression, coronary artery disease status post PCI, chronic tobacco use who presented to the emergency room on December 20 with complaints of weakness for the past few days. Patient lives at home alone. Work-up in the emergency room: Pulse ox 86% on room air but improved once 2 L nasal cannula applied, CT of brain no acute process, chest x-ray concerning for possible pneumonia versus CHF, patient admitted for possible aspiration pneumonia, started on IV antibiotics, admitted for adult failure to thrive with debility. We were consulted for evaluation of renal insufficiency. Patient is alert to self but has difficult time recalling recent events. Patient states he has not been seen by [facility] in the past. In reviewing past creatinine trends patient has had elevated creatinine for several years now and possible baseline creatinine around 2.5 to 2.8 mg/dL as of May 2022. [facility] Medical History (Updated 12/21/22 @ 11:00 by KENYA Contreras) Acute cerebrovascular accident of cerebellum Ankle fracture, left Atherosclerotic heart disease of [place] coronary artery without angina pectoris CKD (chronic kidney disease), stage IV Essential hypertension History of left heart catheterization (LHC) (~02/26/19) Neck fracture PFO (patent foramen ovale) Presence of stent in coronary artery (~02/26/19) Pure hypercholesterolemia Smokeless tobacco use Tobacco chew use Uncontrolled type 2 diabetes mellitus Home Medications nitroglycerin 0.4 mg sublingual tablet 0.4 mg sublingual Q5M PRN Chest Pain #0 tabs 03/07/22 [Rx Last Taken Unknown] acetaminophen 325 mg tablet 650 mg PO Q4H PRN Pain 06/05/22 [History Last Taken Unknown] amlodipine 10 mg tablet 10 mg PO DAILY heart 06/05/22 [History Last Taken Unknown] cholecalciferol (vitamin D3) 1,250 mcg (50,000 unit) capsule 1,250 mcg PO QWEEK supplement 06/05/22 [History Last Taken Unknown] ferrous sulfate 325 mg (65 mg iron) tablet (FeroSul) 325 mg PO BID supplement 06/05/22 [History Last Taken Unknown] magnesium hydroxide 400 mg/5 mL oral suspension (Milk of Magnesia) 30 ml PO DAILY PRN Constipation 06/05/22 [History Last Taken Unknown] mirtazapine 15 mg tablet 15 mg PO QHS sleep 06/05/22 [History Last Taken 12/19/22] tramadol 50 mg tablet 50 mg PO Q6H PRN Pain 06/05/22 [History Last Taken Unknown] ondansetron 4 mg disintegrating tablet 4 mg PO Q8H PRN PRN Nausea #10 tabs 11/17/22 [Rx Last Taken Unknown] atorvastatin 40 mg tablet 40 mg PO QHS cholesterol 12/20/22 [History Last Taken 12/19/22] carvedilol 25 mg tablet 25 mg PO BID heart 12/20/22 [History Last Taken Unknown] clopidogrel 75 mg tablet 75 mg PO DAILY blood thinner 12/20/22 [History Last Taken 12/19/22] isosorbide mononitrate 30 mg tablet,extended release 24 hr 30 mg PO DAILY heart 12/20/22 [History Last Taken 12/19/22] Allergy/AdvReac Type Severity Reaction Status Date / Time ampicillin Allergy Swelling Verified 06/05/22 14:32 fish derived Allergy Swelling Verified 08/25/22 13:38 [seafood - derived] ibuprofen [From Motrin] Allergy Swelling Verified 06/05/22 14:32 shellfish derived Allergy Swelling Verified 08/25/22 13:38 [seafood - shellfish] Family History (Updated 12/20/22 @ 18:[address] Tiara Pritchard MD) Mother Heart disease Hypertension Father Heart disease Hypertension Surgical History H/O bilateral hip replacements Presence of coronary angioplasty implant and graft (~02/26/19) Social History (Updated 12/20/22 @ 18:[address] Tiara Pritchard MD) household members: none Smoking Status: Former smoker Smokeless tobacco user: chewing tobacco alcohol intake: never substance use type: does not use caffeine: Yes ROS ROS Narrative As in HPI Physical Exam Narrative Alert and oriented x3, no apparent distress, having difficult time recalling past events S1, S2, RRR Lung sounds clear anteriorly. No wheezes, rhonchi or rales noted. Diminished breath sounds posterior bases Abdomen soft, nontender, positive bowel sounds No pitting edema noted bilateral lower legs or feet Lab / Micro Data Result Diagrams: 12/21/22 04:44 12/21/22 04:44 Labs: Laboratory Results - last 24 hr 12/20/22 08:40: B-Natriuretic Peptide 2273.0 H 12/20/22 08:40: Magnesium 2.2 12/20/22 12:10: Urine Color Yellow, Urine Clarity Clear, Urine pH 5.0, Ur Specific [place] 1.020, Urine Protein 100 H, Urine Glucose (UA) Normal, Urine Ketones 5 H, Urine Occult Blood 10 H, Urine Nitrite Negative, Urine Bilirubin Negative, Urine Urobilinogen 1 H, Ur Leukocyte Esterase 25 H, Urine RBC 0 SEEN, Urine WBC 0 SEEN, Ur Squamous Epith Cells 0 SEEN, Urine Bacteria 0 SEEN, Urine Mucus 0 SEEN 12/20/22 12:10: Urine Creatinine 145.00 12/20/22 12:10: Ur Random Sodium 108 12/20/22 14:42: Lactic Acid 1.6 12/20/22 17:00: Procalcitonin 0.08 12/20/22 17:00: Troponin I High Sens 31 12/20/22 18:58: Troponin I High Sens 32 12/20/22 23:09: Troponin I High Sens 32 12/21/22 04:44: WBC 10.4, RBC 4.13 L, Hgb 11.0 L, Hct 36.8 L, MCV 89.1, MCH 26.6 L, MCHC 29.9 L, RDW Std Deviation 53.3 H, RDW Coeff of Ave 16.6 H, Plt Count 192, MPV 12.5 H, Immature Gran % (Auto) 0.400, Neut % (Auto) 83.1 H, Lymph % (Auto) 8.2 L, [place] % (Auto) 6.2, Eos % (Auto) 1.6, Baso % (Auto) 0.5, Absolute Neuts (auto) 8.6 H, Absolute Lymphs (auto) 0.85, Nucleated RBC % 0 12/21/22 04:44: Sodium 139, Potassium 4.5, Chloride 112 H, Carbon Dioxide 19.0 L, Anion Gap 8, BUN 31 H, Creatinine 3.03 H, Estim Creat Clear Calc 26.96, Est GFR (MDRD) Af Amer 27 L, Est GFR (MDRD) Non-Af 22 L, BUN/Creatinine Ratio 10.2, Glucose 96, Calcium 8.0 L, Total Bilirubin 0.50, AST 20, ALT 17, Alkaline Phosphatase 96, Total Protein 5.7 L, Albumin 3.0 L, Globulin 2.7, Albumin/Globulin Ratio 1.1, Triglycerides 79, Cholesterol 84, LDL Cholesterol 41, VLDL Cholesterol 16, HDL Cholesterol 27 L, TSH 1.82 12/21/22 04:44: Hemoglobin A1c 6.1 H 12/21/22 04:44: PT 16.5 H, INR 1.4, APTT 32.8 Micro: Microbiology 12/20/22 16:54 Mucosa - Nasopharyngeal Respiratory Panel (PCR) - Final 12/20/22 12:10 Urine, Clean Catch Legionella Antigen - Final 12/20/22 12:10 Urine, Clean Catch Streptococcus pneumoniae Antigen (M - Final 12/20/22 08:35 Nasal Secretion SARS-CoV-2 & FLU Antigen (Rapid) - Final Radiology Impression Chest X-Ray 12/20/22 14:05 IMPRESSION: Borderline cardiomegaly. Findings suggestive of CHF with possible atelectasis and/or infiltrate in the left lower lobe. Electronically Signed: Randy Murrell MD at 14:30 EDT , Documented by User: Dr. Yara Romero MD 12/21/22 15:51 Assessment & Plan Assessment/Plan (1) CKD (chronic kidney disease), stage IV: (2) Aspiration pneumonia: (3) Type 2 diabetes mellitus: PLAN: Plan We were consulted for evaluation of renal insufficiency. In reviewing past creatinine trends, patient has had elevated serum creatinine since 2019. In May 2022 baseline serum creatinine ranging around 2.5 to 2.8 mg/dL. Patient did have lab work on November 17 which showed a creatinine of 3.43 mg/dL. On admission, December 20 creatinine 2.91 mg/dL and today patient's creatinine is 3.03 mg/dL, estimated GFR 22 mL/min. This appears near baseline CKD for patient. Patient may have CKD from diabetic nephropathy; last hemoglobin A1c 6.1%, but to note patient had elevated A1c's above 10% for many years. Renal ultrasound has been ordered. Repeat CXR pending. Urinalysis showed 100 protein, 10 occult blood, no bacteria or blood. We will obtain urine protein creatinine ratio. We will obtain some renal serologies. In 2016 JALEN, DS DNA, hernández antibody not reportable. 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 Potassium and acid-base acceptable, patient appears near euvolemic and he is nonoliguric. Patient is on IV antibiotics, blood cx pending. Reviewed patient home medication list, he had not been on any diuretics, DAMIÁN, ARB or NSAIDs. Current blood pressures acceptable. Echo in 2019 EF 50%, normal LV size, normal RV size, normal systolic function, evidence of diastolic dysfunction. Further orders forthcoming as hospitalization evolves, thank you for allowing us to participate in the care of Mr. Livingston. addendum Seen and examined independently. Baseline creatinine seems to be between 2.5-2.8. Urinalysis shows proteinuria, hematuria. Send a urine protein for quantification. Repeat serologies. Renal ultrasound ordered. [facility] Consult Data Date of Consult: 12/21/22 [facility] Medical History (Updated 12/21/22 @ 11:00 by Fatemeh Chavez NP-[place]) Acute cerebrovascular accident of cerebellum Ankle fracture, left Atherosclerotic heart disease of [place] coronary artery without angina pectoris CKD (chronic kidney disease), stage IV Essential hypertension History of left heart catheterization (LHC) (~02/26/19) Neck fracture PFO (patent foramen ovale) Presence of stent in coronary artery (~02/26/19) Pure hypercholesterolemia Smokeless tobacco use Tobacco chew use Uncontrolled type 2 diabetes mellitus Home Medications nitroglycerin 0.4 mg sublingual tablet 0.4 mg sublingual Q5M PRN Chest Pain #0 tabs 03/07/22 [Rx Last Taken Unknown] acetaminophen 325 mg tablet 650 mg PO Q4H PRN Pain 06/05/22 [History Last Taken Unknown] amlodipine 10 mg tablet 10 mg PO DAILY heart 06/05/22 [History Last Taken Unknown] cholecalciferol (vitamin D3) 1,250 mcg (50,000 unit) capsule 1,250 mcg PO QWEEK supplement 06/05/22 [History Last Taken Unknown] ferrous sulfate 325 mg (65 mg iron) tablet (FeroSul) 325 mg PO BID supplement 06/05/22 [History Last Taken Unknown] magnesium hydroxide 400 mg/5 mL oral suspension (Milk of Magnesia) 30 ml PO DAILY PRN Constipation 06/05/22 [History Last Taken Unknown] mirtazapine 15 mg tablet 15 mg PO QHS sleep 06/05/22 [History Last Taken 12/19/22] tramadol 50 mg tablet 50 mg PO Q6H PRN Pain 06/05/22 [History Last Taken Unknown] ondansetron 4 mg disintegrating tablet 4 mg PO Q8H PRN PRN Nausea #10 tabs 11/17/22 [Rx Last Taken Unknown] atorvastatin 40 mg tablet 40 mg PO QHS cholesterol 12/20/22 [History Last Taken 12/19/22] carvedilol 25 mg tablet 25 mg PO BID heart 12/20/22 [History Last Taken Unknown] clopidogrel 75 mg tablet 75 mg PO DAILY blood thinner 12/20/22 [History Last Taken 12/19/22] isosorbide mononitrate 30 mg tablet,extended release 24 hr 30 mg PO DAILY heart 12/20/22 [History Last Taken 12/19/22] Allergy/AdvReac Type Severity Reaction Status Date / Time ampicillin Allergy Swelling Verified 06/05/22 14:32 fish derived Allergy Swelling Verified 08/25/22 13:38 [seafood - derived] ibuprofen [From Motrin] Allergy Swelling Verified 06/05/22 14:32 shellfish derived Allergy Swelling Verified 08/25/22 13:38 [seafood - shellfish] Family History (Updated 12/20/22 @ 18:[address] Tiara Pritchard MD) Mother Heart disease Hypertension Father Heart disease Hypertension Surgical History H/O bilateral hip replacements Presence of coronary angioplasty implant and graft (~02/26/19) Social History (Updated 12/20/22 @ 18:[address] Tiara Pritchard MD) household members: none Smoking Status: Former smoker Smokeless tobacco user: chewing tobacco alcohol intake: never substance use type: does not use caffeine: Yes Lab / Micro Data Result Diagrams: 12/21/22 04:44 12/21/22 04:44
[2022-12-21 13:00] LABS: Protein, Urine (Random) 12.2 mg/dL (<11.9); Protein:Creat Ratio 610 mg/g CRE (0-200)
[2022-12-21] MEDS: Mirtazapine 15 MG Tablet PO (21:21)
[2022-12-21] MEDS: Atorvastatin Calcium 40 MG Tablet PO (21:21)
[2022-12-22] VITALS (7 sets, daily range): BP systolic 115–160; BP diastolic 85–117; PULSE 68–82; RESP 16–18; TEMP 36.1–36.6; O2SAT 92–100; BMI 22.0
[2022-12-22] MEDS: metroNIDAZOLE 500 MG/100 ML BAG 100 MG IV ×3 (05:27→21:18)
[2022-12-22 06:56] LABS: Bedside Glucose 83 mg/dL (74-106)
[2022-12-22 07:42] LABS: Absolute Lymphocyte Count 0.84 X10^3/uL (0.83-4.51); Absolute Neutrophil Count 4.3 X10^3/uL (2.0-7.7); Basophil# 0.04 X10^3/uL; Basophil% 0.7 % (0-1); Eosinophil# 0.28 X10^3/uL; Eosinophils% 4.8 % (0-5); Hematocrit 35.6 % (40-54); Hemoglobin 10.9 g/dL (13.0-16.5); Lymphocyte # 0.84 X10^3/ul (0.83-4.51); Lymphocyte % 14.4 % (19-41); Mean Corp Hgb Conc 30.6 g/dL (32-36); Mean Corpuscular Hgb 26.5 pg (27.0-32.0); Mean Corpuscular Volume 86.4 fL (80-94); Monocyte# 0.35 X10^3/uL; NRBC Flagged by Analyzer 0 % (0-5); Neutrophil # 4.26 X10^3/uL (2.7-7.7); Neutrophil % 73.2 % (47-70); Platelet Count 185 K/mm3 (150-450); RBC Distribution Width CV 16.1 % (11.6-14.6); Red Blood Count 4.12 M/mm3 (4.6-6.2); White Blood Count 5.8 K/mm3 (4.4-11.0)
--- NOTE | 2022-12-22 07:55 | NURSING ---
inadequate staffing 01/15 with only 1 senior patrol agent for whole unit. emergency charting utitlized
[2022-12-22 08:33] LABS: ALB/GLOB Ratio 1.2 RATIO (0.9-2.4); AST(SGOT) 19 U/L (15-37); Alanine Aminotransfer ALT/SGPT 13 U/L (16-61); Alkaline Phosphatase 91 U/L (45-117); Anion Gap 7 (5-15); BUN 30 mg/dL (7-18); BUN/Creat Ratio 11.3 RATIO (10-20); Chloride 108 mmol/L (98-107); Creatinine, Serum 2.66 mg/dL (0.70-1.30); EST Glomerular Filtration Rate 26 mL/min (>60); Est Glom Filt Rate - Afr Amer 32 mL/min (>60); Estimated Creatinine Clearance 29.97 ml/min; Globulin 2.6 g/dL (2.2-4.2); Glucose 93 mg/dL (74-106); Protein, Total 5.6 g/dL (6.4-8.2); Sodium Level 137 mmol/L (136-145)
--- NOTE | 2022-12-22 09:44 | PN.HOSP_ITS ---
Reason for Visit Reason for Visit: Diagnoses Type 2 diabetes mellitus without complications (12/20/22) Pneumonitis due to inhalation of food and vomit (12/20/22) Chronic kidney disease, stage 4 (severe) (12/20/22) Hypoxemia (12/20/22) Follow-up for dysphagia, aspiration pneumonitis and pulmonary hypertension, biventricular heart failure Subjective Subjective Patient has generalized weakness. He stated he had a stroke in February 2022. Mild right-sided weakness. His speech output is also slow but seems chronic. Objective Data Objective Data Vital Signs: Vital Signs Temp Pulse Resp BP Pulse Ox O2 Del Method O2 Flow Rate 96.9 F L 73 18 127/85 H 94 Room Air 3 12/22/22 03:36 12/22/22 03:36 12/22/22 03:36 12/22/22 03:36 12/22/22 08:02 12/22/22 08:02 12/20/22 21:49 Oxygen Flow Rate (L/min) 3 Oxygen Delivery Method Room Air Weight: 162 lb 4.163 oz Body Mass Index (BMI) 22.0 Intake & Output: Intake and Output for Last 24 Hours 12/20/22 12/21/22 12/22/22 23:59 23:59 23:59 Intake Total 1440 / 1440 470 / 470 100 / 100 Output Total 1200 / 1200 350 / 350 Balance 1440 / 940 -730 / -730 -250 / -250 Lab / Micro Data Result Diagrams: 12/22/22 07:15 12/22/22 07:15 Labs: Laboratory Results - last 24 hr 12/20/22 12:10: Ur Random Sodium 108 12/21/22 10:00: COVID-19 (NIGEL) Not Detected 12/21/22 12:09: U Random Total Protein 12.2 H, Urine Creatinine 20.00, Protein/Creatinin Ratio 610 H 12/22/22 05:35: POC Glucose 83 12/22/22 07:15: WBC 5.8, RBC 4.12 L, Hgb 10.9 L, Hct 35.6 L, MCV 86.4, MCH 26.5 L, MCHC 30.6 L, RDW Std Deviation 51.0 H, RDW Coeff of Ave 16.1 H, Plt Count 185, MPV 12.0, Immature Gran % (Auto) 0.900, Neut % (Auto) 73.2 H, Lymph % (Auto) 14.4 L, [place] % (Auto) 6.0, Eos % (Auto) 4.8, Baso % (Auto) 0.7, Absolute Neuts (auto) 4.3, Absolute Lymphs (auto) 0.84, Nucleated RBC % 0 12/22/22 07:15: Sodium 137, Potassium 4.0, Chloride 108 H, Carbon Dioxide 22.0, Anion Gap 7, BUN 30 H, Creatinine 2.66 H, Estim Creat Clear Calc 29.97, Est GFR (MDRD) Af Amer 32 L, Est GFR (MDRD) Non-Af 26 L, BUN/Creatinine Ratio 11.3, Glucose 93, Calcium 8.0 L, Total Bilirubin 0.60, AST 19, ALT 13 L, Alkaline Phosphatase 91, Total Protein 5.6 L, Albumin 3.0 L, Globulin 2.6, Albumin/Globulin Ratio 1.2 Micro: Microbiology 12/20/22 14:42 Blood Culture (Wb) - Left Forearm Blood Culture - Preliminary No growth in 48 hours. 12/20/22 08:40 Blood Culture (Wb) - Left Forearm Blood Culture - Preliminary No growth in 48 hours. 12/20/22 16:54 Mucosa - Nasopharyngeal Respiratory Panel (PCR) - Final 12/20/22 12:10 Urine, Clean Catch Legionella Antigen - Final 12/20/22 12:10 Urine, Clean Catch Streptococcus pneumoniae Antigen (M - Final 12/20/22 08:35 Nasal Secretion SARS-CoV-2 & FLU Antigen (Rapid) - Final Radiography Diagnostic Testing: Radiology Impression Chest X-Ray 12/21/22 05:55 IMPRESSION: Improvement in the CHF although there has been progressive bibasilar atelectasis and/or infiltrates. Electronically Signed: Randy Murrell MD at 14:07 EDT , Physical Exam Narrative Physical exam General: Alert, Oriented x3, Cooperative HEENT: Atraumatic, PERRLA, EOMI, Normocephalic Oral: Oral mucosa moist. No Gingival or Mucosal Lesions/ Ulcerations Neck: Supple, No JVD, Negative Carotid Bruits Lungs: Air entry diminished in bilateral lung bases. No crepitation/rhonchi, weak cough reflex. Cardiovascular: Regular rate, Regular Rhythm, Normal S1, Normal S2, systolic murmur over LLSB. Abdomen: Bowel Sounds Present, Soft, Non Tender, Non-Distended : No renal angle tenderness. No suprapubic tenderness. Extremities: No edema, Capillary Refill Less than 3 Seconds Skin: Multiple small abrasions due to recurrent frequent fall. Musculoskeletal: Muscle strength 4/5 at right knee and hip joints, weaker than left side. No Tenderness to Palpation of Joints or Extremities Neurological: Cranial nerves II-XII grossly intact, DTR 2+/4, symmetrical intact to gross sensory touch. Psych/Mental Status: Flat affect Assessment & Plan Assessment/Plan (1) Hypoxia: PLAN: Plan 68-year-old is admitted with generalized weakness and fall at home. He had been weak for 1 to 2 days. Lives alone at home. Fell down twice today. 1. Adult failure to thrive with debility and inability to complete ADLs, low functional status: Patient has weak swallow function, and right-sided weakness and lower speech probably from previous stroke in February 2022. PT and OT and speech therapist evaluating and managing him. Patient had modified barium swallow which shows silent aspiration. Diet was modified accordingly as per speech therapist recommendation. Patient has multiple recurrent and frequent falls at home. depending upon PT and OT final evaluation he might need SNF. D iscussed with patient's brother over the phone. lity of aspiration based on the admission note that he coughs with food so he is on Rocephin and Flagyl will continue for another 24 to 48 hours pending results of infectious work-up 2. Aspiration with high suspicion of aspiration pneumonia: Chest x-ray individually reviewed and shows bilateral infiltrate left more than right. Bibasilar atelectasis. Patient on IV ceftriaxone and metronidazole 3. Acute on chronic biventricular heart failure with severe pulmonary hypertension, valvular heart disease, CAD status post stent/history of CVA, hype rtension and dyslipidemia: 2D echo was done [employer]: With biventricular heart failure, EF 35% with moderate global severe LV systolic dysfunction. Severely dilated RV with global systolic dysfun ction, PASP 90 mmHg, severe 4+ TR. Severe pulmonary hypertension. Both right and left atria are severely enlarged. 1-2+ MR. Patient on Plavix, atorvastatin, carvedilol. On IV furosemide. Heart failure core measures including intake and output, fluid restriction less than 1500 mL, daily weight monitoring, kidney and electrolytes monitoring. ? 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 Chronic iron deficiency anemia ? Hemoglobin between 10 to 11 g%. ? Continue with his iron replacement 4. Anxiety/depression ? Stable ? Continue with the medications DVT: Heparin I called his brother over the phone Wilfrido Tong [phone] and gave overall clinical picture along with chest x-ray, echo and modified barium swallow findings. Based on Lofenoxal status, his prognosis is bad to worse. 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 Total time of the visit including total time spent in counseling or coordination of care, (more than 50% of the total time, spent in obtaining medical information from nurses and other ancillary care providers,explaining to the patient about labs, imaging, diagnosis and management of active complex medical conditions), , review of labs and imaging is 50 minutes. Clinical Impression(s) from Imaging Studies Brain CT 12/20/22 08:18 IMPRESSION: Chronic involutional changes of the brain. Electronically Signed: Randy Murrell MD at 10:06 EDT , Chest X-Ray 12/20/22 14:05 IMPRESSION: Borderline cardiomegaly. Findings suggestive of CHF with possible atelectasis and/or infiltrate in the left lower lobe. Chest X-Ray 12/21/22 05:55 IMPRESSION: Improvement in the CHF although there has been progressive bibasilar atelectasis and/or infiltrates. Electronically Signed: Randy Murrell MD at 14:07 EDT , Echocardiogram 12/21/22 05:55 Interpretation Summary Moderately severe global left ventricular systolic dysfunction. The left ventricular ejection fraction is 35 %. Severely dilated right ventricle. Severe global right ventricular systolic dysfunction. The left atrium is severely enlarged. The right atrium is severely enlarged. Mild-Moderate (1-2+) mitral valve insufficiency. Severe (4+) tricuspid valve insufficiency. Pulmonary artery systolic pressure is 90 mmHg. Severe pulmonary hypertension. Renal Ultrasound 12/21/22 05:55 IMPRESSION: Normal ultrasound of the kidneys and urinary bladder. Electronically Signed: Randy Murrell MD at 12:38 EDT , Microbiology Past 72 Hours 12/20/22 14:42 Blood Culture (Wb) - Left Forearm Blood Culture - Preliminary No growth in 48 hours. 12/20/22 08:40 Blood Culture (Wb) - Left Forearm Blood Culture - Preliminary No growth in 48 hours. 12/20/22 16:54 Mucosa - Nasopharyngeal Respiratory Panel (PCR) - Final 12/20/22 12:10 Urine, Clean Catch Legionella Antigen - Final 12/20/22 12:10 Urine, Clean Catch Streptococcus pneumoniae Antigen (M - Final 12/20/22 08:35 Nasal Secretion SARS-CoV-2 & FLU Antigen (Rapid) - Final Laboratory Results 12/21/22 04:46: JALEN Screen Negative 12/21/22 04:46: c-ANCA Antibody <1:20, Atypical p-ANCA <1:20, p-ANCA Antibody <1:20, Complement C3 93, Complement C4 17 12/22/22 05:35: POC Glucose 83 12/22/22 07:15: WBC 5.8, RBC 4.12 L, Hgb 10.9 L, Hct 35.6 L, MCV 86.4, MCH 26.5 L, MCHC 30.6 L, RDW Std Deviation 51.0 H, RDW Coeff of Ave 16.1 H, Plt Count 185, MPV 12.0, Immature Gran % (Auto) 0.900, Neut % (Auto) 73.2 H, Lymph % ( Auto) 14.4 L, [place] % (Auto) 6.0, Eos % (Auto) 4.8, Baso % (Auto) 0.7, Absolute Neuts (auto) 4.3, Absolute Lymphs (auto) 0.84, Nucleated RBC % 0 12/22/22 07:15: Sodium 137, Potassium 4.0, Chloride 108 H, Carbon Dioxide 22.0, Anion Gap 7, BUN 30 H, Creatinine 2.66 H, Estim Creat Clear Calc 29.97, Est GFR (MDRD) Af Amer 32 L, Est GFR (MDRD) Non-Af 26 L, BUN/Creatinine Ratio 11.3, Glucose 93, Calcium 8.0 L, Total Bilirubin 0.60, AST 19, ALT 13 L, Alkaline Phosphatase 91, Total Protein 5.6 L, Albumin 3.0 L, Globulin 2.6, Albumin/Globulin Ratio 1.2 Charges/Coding Visit Charges Inpatient E&M: 86462 Subs Hosp L3
[2022-12-22] MEDS: amLODIPine 10 MG Tablet PO (10:00)
[2022-12-22] MEDS: Ferrous Sulfate 325 MG Tablet PO ×2 (10:00→18:05)
[2022-12-22] MEDS: Carvedilol 25 MG Tablet PO ×2 (10:00→21:18)
[2022-12-22] MEDS: Heparin Injection (Vial) 5,000 UNIT/ML VIAL 5000 UNIT SC ×2 (10:00→21:18)
[2022-12-22] MEDS: Isosorbide Mononitrate 30 MG Tablet PO (10:00)
[2022-12-22] MEDS: Clopidogrel Bisulfate 75 MG Tablet PO (10:00)
[2022-12-22] MEDS: Aspirin E.C. 81 MG Tablet PO (10:00)
[2022-12-22] MEDS: Multivitamins,Therapeutic Tablet 1 TABLET PO (10:00)
[2022-12-22] MEDS: Furosemide 40 MG/4 ML Vial IV (10:02)
[2022-12-22] MEDS: 0.9% Saline Lock 10 ML Syringe IV ×2 (10:03→21:18)
--- NOTE | 2022-12-22 13:00 | CASEMGMT ---
VANNA SUTHERLAND Face to Face with patient for initial transition planning/care coordination assessment. VANNA SUTHERLAND introduced self and role at [facility]. Patient sitting in chair, alert and oriented. Patient willing to participate in assessment and is able to answer all questions appropriately. Care providers, pharmacy, and demographics verified. Patient wishes to discharge home with resumption of HHC, will monitor progress with therapy. Patient states he has no further needs or concerns at this time. CM to follow for discharge planning needs that may arise. PCP: [facility] Specialists: none Preferred Pharmacy: [facility] Insurance: [employer] [facility] Prescription Benefit: yes Living Will/HPOA: none LNOK: brother Living Arrangements: Patient lives alone in a first floor apartment with no steps to enter. Patient states he is independent at home. Transportation: brother DME/C: Patient states he has cane and walker at home. Patient has [facility] been [facility] Patient states he has nurse that comes once weekly and thinks it is [facility]. VANNA SUTHERLAND called [facility] and he is active for nursing. Per [facility] they are unable to provide therapy. VANNA SUTHERLAND reviewed therapy notes and patient was a min assist 5 feet and recommending SNF for additional therapy. Patient states he wants to go home. Will monitor progress with therapy Disposition Plan: TBD, HHC vs SNF pending progress with therapy. Tereza HINKLE, RN, CM
[2022-12-22 15:08] LABS: Cytoplasmic Ab (C-ANCA) <1:20 titer (Neg:<1:20)
[2022-12-22 15:28] LABS: ANTINUCLEAR ANTIBODIES DIRECT Negative (Negative)
--- NOTE | 2022-12-22 15:28 | CASEMGMT ---
VANNA CM: Call received from [facility] who states pt is receiving waiver services that include: Incontinent supplies from [employer] 10 home delivered meals from [employer] every other week Emergency Response system Medicine management system through [employer]. monitoring Nurse visit once per week from [facility] for medication set-up Adult day care at [place] 1/2 days on Mon, Tu, Wed (Pt received showers there but has not been able to attend due to bed bugs.) Serena can be reached at [phone]. Serena was going to communicate ongoing bedbugs to pt's chronic case maker as well as the potential need for mobile home installer services. David Cowart RN CM
--- NOTE | 2022-12-22 15:41 | PN.RENAL_ITS ---
Subjective Subjective no new events Objective Data Objective Data Vital Signs: Vital Signs Temp Pulse Resp BP Pulse Ox O2 Del Method O2 Flow Rate 97.8 F 68 16 115/85 H 99 Room Air 3 12/22/22 14:21 12/22/22 14:21 12/22/22 14:21 12/22/22 14:21 12/22/22 14:21 12/22/22 14:21 12/20/22 21:49 Oxygen Flow Rate (L/min) 3 Oxygen Delivery Method Room Air Weight: 73.6 kg Body Mass Index (BMI) 22.0 Intake & Output: Intake and Output for Last 24 Hours 12/20/22 12/21/22 12/22/22 23:59 23:59 23:59 Intake Total 1440 / 1440 470 / 470 250 / 250 Output Total 1200 / 1200 350 / 350 Balance 1440 / 940 -730 / -730 -100 / -100 Lab / Micro Data Result Diagrams: 12/22/22 07:15 12/22/22 07:15 Labs: Laboratory Results - last 24 hr 12/21/22 04:46: JALEN Screen Negative 12/22/22 05:35: POC Glucose 83 12/22/22 07:15: WBC 5.8, RBC 4.12 L, Hgb 10.9 L, Hct 35.6 L, MCV 86.4, MCH 26.5 L, MCHC 30.6 L, RDW Std Deviation 51.0 H, RDW Coeff of Ave 16.1 H, Plt Count 185, MPV 12.0, Immature Gran % (Auto) 0.900, Neut % (Auto) 73.2 H, Lymph % (Auto) 14.4 L, [place] % (Auto) 6.0, Eos % (Auto) 4.8, Baso % (Auto) 0.7, Absolute Neuts (auto) 4.3, Absolute Lymphs (auto) 0.84, Nucleated RBC % 0 12/22/22 07:15: Sodium 137, Potassium 4.0, Chloride 108 H, Carbon Dioxide 22.0, Anion Gap 7, BUN 30 H, Creatinine 2.66 H, Estim Creat Clear Calc 29.97, Est GFR (MDRD) Af Amer 32 L, Est GFR (MDRD) Non-Af 26 L, BUN/Creatinine Ratio 11.3, Glucose 93, Calcium 8.0 L, Total Bilirubin 0.60, AST 19, ALT 13 L, Alkaline Phosphatase 91, Total Protein 5.6 L, Albumin 3.0 L, Globulin 2.6, Albumin/Globulin Ratio 1.2 Micro: Microbiology 12/20/22 14:42 Blood Culture (Wb) - Left Forearm Blood Culture - Preliminary No growth in 48 hours. 12/20/22 08:40 Blood Culture (Wb) - Left Forearm Blood Culture - Preliminary No growth in 48 hours. 12/20/22 16:54 Mucosa - Nasopharyngeal Respiratory Panel (PCR) - Final 12/20/22 12:10 Urine, Clean Catch Legionella Antigen - Final 12/20/22 12:10 Urine, Clean Catch Streptococcus pneumoniae Antigen (M - Final 12/20/22 08:35 Nasal Secretion SARS-CoV-2 & FLU Antigen (Rapid) - Final Radiography Diagnostic Testing: Radiology Impression Echocardiogram 12/21/22 05:55 Interpretation Summary Moderately severe global left ventricular systolic dysfunction. The left ventricular ejection fraction is 35 %. Severely dilated right ventricle. Severe global right ventricular systolic dysfunction. The left atrium is severely enlarged. The right atrium is severely enlarged. Mild-Moderate (1-2+) mitral valve insufficiency. Severe (4+) tricuspid valve insufficiency. Pulmonary artery systolic pressure is 90 mmHg. Severe pulmonary hypertension. Ordering Physician: Tiara Pritchard Referring Physician: Rosario Arroyo Performed By: Maria Alvarez RCS Renal Ultrasound 12/21/22 05:55 IMPRESSION: Normal ultrasound of the kidneys and urinary bladder. Electronically Signed: Randy Murrell MD at 12:38 EDT , Physical Exam Narrative Alert and oriented x3, no apparent distress, having difficult time recalling past events S1, S2, RRR Lung sounds clear anteriorly. No wheezes, rhonchi or rales noted. Diminished breath sounds posterior bases Abdomen soft, nontender, positive bowel sounds No pitting edema noted bilateral lower legs or feet Assessment & Plan Assessment/Plan (1) CKD (chronic kidney disease), stage IV: (2) Aspiration pneumonia: (3) Type 2 diabetes mellitus: PLAN: Plan RASHAWN CKD stage IV Baseline creatinine has been between 2.5-2.7. Creatinine is slightly better today, closer to baseline. Urinalysis showed hematuria and proteinuria. Urine protein creatinine ratio +600 mg rest of the serologies are pending. Since creatinine is better, no acute indications for biopsy etc. We will wait for serologies.
--- NOTE | 2022-12-22 15:45 | SP.MBSS_ITS ---
Modified Barium Swallow - Patient Information Study Date: 12/22/22 Study Time: 10:00 Direct Billable Minutes: 114 Total Minutes procedure & reportin Diagnosis: Aspiration PNA (J96.0) Referring Physician: Jarad Krueger Reason for Referral: Objectively assess swallow function, assess risk for aspiration, and determine recommendations for least restrictive diet textures and compensatory strategies to improve safety of swallow. Medical History: Jerome Anna is a 62-year-old male with a history of CKD stage IV, Chronic anemia/iron deficiency anemia, Anxiety and Depression, CAD s/p PCI, HTN, HLD, Chew tobacco use, Diabetes mellitus type II, Hx CVA, and neck fracture. Patient presented to the [facility] ED on 12/20/22 with history of primarily significant weakness over the last 2 to 3 days reported per himself is severe with falls at home with increased fatigue and malaise with no specific recent URI type symptoms but he does report that he is been coughing significantly with any oral food intake prompting eventual ED evaluation. He denies dyspnea but in the ED upon evaluation he is using mild accessory muscles. He also denies any coughing but while evaluating the patient coughed several times. Work-up in the ED included urinalysis with no obvious evidence of UTI with 5 ketone, normal glucose, CT of the brain with chronic involutional changes, rapid COVID and influenza antigens negative, CXR obtained and concern for possible BL bibasilar PNA versus CHF with final read pending upon evaluation, EKG with SR with no acute evidence of i schemia. In the ED given concerns for aspiration patient administered IV Rocephin and Flagyl. Patient referred for speech evaluation due to concerns for aspiration pneumonia. Patient reports coughing, mostly on foods, ~1x per month, resulting in regurgitating food back up., with no concerns for liquids. Additionally, pt reports getting heart burn occasionally, but is not being followed by a doctor for concerns. Pt unable to recall the frequency of heartburn episodes. Chest x-ray completed on 12/20/22 with borderline cardiomegaly, findings suggestive of CHF with possible atelectasis and/or infilt rate in the left lower lobe. Speech evaluation completed on 12/21/22. Per results of bedside swallow evaluation, patient was recommended to be NPO with plans for MBSS next day to assess risk/presence of aspiration, due to patient becoming short of breath as trials continued with occasional coughing episodes. Current Diet Ordered: NPO with ice chips Dentition: Missing Teeth Mental Status: Impaired - Some difficulty following direction, no formal cognitive assessment completed at this time Respiratory Status: Oxygenating on Room Air - Penetration-Aspiration Scale Penetration-Aspiration Scale: OBJECTIVE ASSESSMENT OF SWALLOW FUNCTION (QUANTITATIVE ? PER TRIAL): PENETRATION / ASPIRATION SCALE (DE LEÓN): 1 = does not enter airway 2 = enters airway/above vocal folds/ejected 3 = enters airway/above vocal folds/not ejected 4 = enters airway/contacts vocal folds/ejected 5 = enters airway/contacts vocal folds/not ejected 6 = enters airway/below vocal folds/ejected 7 = enters airway/below vocal folds/not ejected despite effort 8 = enters airway/below vocal folds/no effort VIDEOFLOROSCOPIC SCALE SCORE (DE LE[place]N): Grade I = aspiration of material that has penetrated into the laryngeal vestibule, intact cough reflex Grade II = aspiration < 10 % of the bolus, intact cough reflex Grade III = aspiration of < 10 % of the bolus, reduced cough reflex or aspiration of > 10 % of the bolus, intact cough reflex Grade IV = aspiration of > 10 % of the bolus, reduced cough reflex - Penetration-Aspiration Scale Score Thin Liquid via teaspoon Result: 1= does not enter airway Thin Liquid via teaspoon Trial 2 Result: 1= does not enter airway Comment: Post prandial penetration of previous trial spilling from the pyriforms. Thin Liquid via large single sip from cup Result: 7= enters airways/below vocal folds/not ejected despite effort Comment: Patient was cued for small sip. [place] Thick Liquid via large single sip from cup Result: 1= does not enter airway Pudding via teaspoon with esophageal screen and cued cough Result: 8= enters airway/below vocal folds/no effort Comment: Cued cough effective in clearing a majority of aspirated pudding contrast from the trachea. 1/2 Cookie Result: 2= enter airway/above vocal folds/ejected Comment: Trace silent post prandial aspiration of previous trial. Thin Liquid via single sip from straw Result: 8= enters airway/below vocal folds/no effort Thin Liquid via small single sip from cup Effortful swallow Result: 8= enters airway/below vocal folds/no effort Comment: Silent post prandial aspiration of previous trial. TURPENTINER student cued cough and re-swallow, which was somewhat effective in clearing aspirated contrast. [place] Thick Liquid via large single sip from cup Trial 2 Result: 1= does not enter airway Comment: Trace silent post prandial aspiration of previous trial. Pudding via teaspoon Effortful swallow Result: 1= does not enter airway - Oral Phase Labial Seal: Escape progressing to mid-chin Tongue Control During Bolus Hold: Posterior escape of greater than half of bolus Bolus Preparation/Mastication: Disorganized chewing/mashing with solid pieces of bolus unchewed Bolus Transport/Lingual Motion: Repetitive/disorganized tongue motion Oral Residue: Majority of bolus remaining - Pharyngeal Phase Initiation of Pharyngeal Swallow: Bolus head in pyriforms Soft Palate Elevation: Trace column of contrast/air between soft palate and pharyngeal wall Laryngeal Elevation: Partial superior movement thyroid cart/partial apprx aryt- epig petiole Anterior Hyoid Excursion: Partial anterior movement Epiglottic Movement: No inversion - inconsistent inversion, little to no inversion on certain trials Laryngeal Vestibule Closure at Height of Swallow: Incomplete; narrow column of air/contrast in laryngeal vestibule Pharyngeal Stripping Wave: Present - diminished Pharyngoesophageal Segment Opening: Parital distension and partial duration; parital obstruction of flow Tongue Base Retraction: Wide column of contrast between tongue base & post. pharyngeal wall Pharyngeal Residue: Collection of residue within or on pharyngeal structures - Esophageal Phase Esophageal Clearance: Complete clearance - Diagnosis/Impression Diagnosis: Moderate-severe oropharyngeal phase dysphagia (R13.12) Impression: The oral phase is primarily marked by... -Anterior loss of liquids, beyond mid-chin.?? -Decreased bolus control with >1/2 of the bolus spilling posteriorly to the pyriforms prior to swallow onset seen across all consistencies. Thin liquids spilled to vocal cords prior to swallow onset, contributing to silent aspiration during the swallow. -Repetitive tongue motion for A-P transport, disorganized chewing with solid pieces of cookie left un-chewed -Piecemeal deglutition of cookie and large sips requiring multiple swallows to clear moderate-severe oral residues. Pt did independently initiate multiple swallows to mostly clear oral residues. ? The pharyngeal phase is primarily marked by... -Severely decreased airway closure during the swallow due to partial anterior hyoid excursion, decreased laryngeal elevation, and little to no epiglottic inversion, which was inconsistent throughout trials. -Severely decreased tongue base retraction, moderately decreased UES o pening/duration, and severely decreased pharyngeal stripping wave with resulting severe pharyngeal residues after the swallow, which mostly cleared after independent use of multiple swallows. -Post prandial SILENT aspiration of thin liquids and pudding. SILENT aspiration during the swallow of pudding by tsp and thin liquids via cup and straw. Pt had delayed, ineffective cough reflex X1 aspirated trial of thin liquids by cup at the start of the study. SEE PAS scores above for further details regarding laryngeal penetration and aspiration observed during the study. - Recommendations Diet: Puree Textures, [place]-thick Liquids Compensatory Strategies: Small Bites - EFFORTFUL SWALLOW ON EACH BITE, COUGH AND RE-SWALLOW AFTER EVERY 3-5 BITES, Small Sips, Slow Rate, Sitting upright, Assist with verbal cues to use recommended strategies Supervision: 1:1 Close Supervision Recommend Repeat Modified Barium Swallow: Yes Comment: Repeat MBSS in 2-4 weeks after implementation of oropharyngeal exercise program. Repeat study prior to diet advancement due to SILENT nature of aspiration. Need for Skilled Speech Therapy Services: Yes Comment: Will recommend the patient for intensive dysphagia therapy to address moderate- severe deficits in oropharyngeal swallow function. Will recommend the patient for oropharyngeal strengthening to improve lingual control/coordination, hyolaryngeal elevation/excursion, tongue base retraction, and pharyngeal contraction. The patient would benefit from thorough education regarding diet recommendations and recommended compensatory strategies. Education Completed: 1. Described result of evaluation. - Educated pt, RN, Molly, and CHANNEL SALES MANAGER re: results and recommendations of MBSS and posted signage in patient's room for strict aspiration precautions. , 7. Pt requires further education on strategies & risks. - Status Active ST Patient: Active - Contact Information [facility] Speech Therapy:: Carmel King M.A. [facility] Speech-Language Pathologist [facility] [address] [place] [address] [email or web address] [phone] 12/22/22 16:07
[2022-12-22 15:50] LABS: Complement C3 93 mg/dL (82-167); Perinuclear Ab (P-ANCA) <1:20 titer (Neg:<1:20)
--- NOTE | 2022-12-22 16:24 | NURSING ---
emergency charting utilized 12/22 7a-7p
[2022-12-22] MEDS: Mirtazapine 15 MG Tablet PO (21:18)
[2022-12-22] MEDS: Atorvastatin Calcium 40 MG Tablet PO (21:18)
[2022-12-23 03:36] VITALS: BP 128/76; PULSE 72; RESP 16; TEMP 36.7; O2SAT 98
[2022-12-23] MEDS: metroNIDAZOLE 500 MG/100 ML BAG 100 MG IV ×3 (05:44→22:19)
[2022-12-23 06:00] VITALS: BMI 20.9
[2022-12-23 08:49] VITALS: O2SAT 96
--- NOTE | 2022-12-23 10:07 | PCM.PN.HOSP ---
Reason for Visit Reason for Visit: Diagnoses Type 2 diabetes mellitus without complications (12/20/22) Pneumonitis due to inhalation of food and vomit (12/20/22) Chronic kidney disease, stage 4 (severe) (12/20/22) Hypoxemia (12/20/22) Follow-up for multiple issues including heart failure, pulmonary hypertension, CKD, dysphagia and low functional status/failure to thrive Objective Data Objective Data Vital Signs: Vital Signs Temp Pulse Resp BP Pulse Ox O2 Del Method O2 Flow Rate 98.1 F 72 16 128/76 H 96 Room Air 3 12/23/22 03:36 12/23/22 03:36 12/23/22 03:36 12/23/22 03:36 12/23/22 08:49 12/23/22 08:49 12/20/22 21:49 Oxygen Flow Rate (L/min) 3 Oxygen Delivery Method Room Air Weight: 154 lb 15.759 oz Body Mass Index (BMI) 20.9 Intake & Output: Intake and Output for Last 24 Hours 12/21/22 12/22/22 12/23/22 23:59 23:59 23:59 Intake Total 470 / 470 590 / 590 100 / 100 Output Total 1200 / 1200 1750 / 1750 400 / 400 Balance -730 / -730 -1160 / -1160 -300 / -300 Lab / Micro Data Result Diagrams: 12/22/22 07:15 12/22/22 07:15 Labs: Laboratory Results - last 24 hr 12/21/22 04:46: JALEN Screen Negative 12/21/22 04:46: c-ANCA Antibody <1:20, Atypical p-ANCA <1:20, p-ANCA Antibody <1:20, Complement C3 93, Complement C4 17 Micro: Microbiology 12/20/22 14:42 Blood Culture (Wb) - Left Forearm Blood Culture - Preliminary No growth in 48 hours. 12/20/22 08:40 Blood Culture (Wb) - Left Forearm Blood Culture - Preliminary No growth in 48 hours. 12/20/22 16:54 Mucosa - Nasopharyngeal Respiratory Panel (PCR) - Final 12/20/22 12:10 Urine, Clean Catch Legionella Antigen - Final 12/20/22 12:10 Urine, Clean Catch Streptococcus pneumoniae Antigen (M - Final 12/20/22 08:35 Nasal Secretion SARS-CoV-2 & FLU Antigen (Rapid) - Final Radiography Diagnostic Testing: Radiology Impression Echocardiogram 12/21/22 05:55 Interpretation Summary Moderately severe global left ventricular systolic dysfunction. The left ventricular ejection fraction is 35 %. Severely dilated right ventricle. Severe global right ventricular systolic dysfunction. The left atrium is severely enlarged. The right atrium is severely enlarged. Mild-Moderate (1-2+) mitral valve insufficiency. Severe (4+) tricuspid valve insufficiency. Pulmonary artery systolic pressure is 90 mmHg. Severe pulmonary hypertension. Ordering Physician: Tiara Pritchard Referring Physician: Rosario Arroyo Performed By: Maria Alvarez RCS Renal Ultrasound 12/21/22 05:55 IMPRESSION: Normal ultrasound of the kidneys and urinary bladder. Electronically Signed: Randy Murrell MD at 12:38 EDT , Physical Exam Narrative Physical exam General: Alert, Oriented x3, Cooperative HEENT: Atraumatic, PERRLA, EOMI, Normocephalic Oral: Oral mucosa moist. No Gingival or Mucosal Lesions/ Ulcerations Neck: Supple, No JVD, Negative Carotid Bruits Lungs: Air entry diminished in bilateral lung bases. No crepitation/rhonchi, weak cough reflex. Cardiovascular: Regular rate, Regular Rhythm, Normal S1, Normal S2, systolic murmur over LLSB. Abdomen: Bowel Sounds Present, Soft, Non Tender, Non-Distended : No renal angle tenderness. No suprapubic tenderness. Extremities: No edema, Capillary Refill Less than 3 Seconds Skin: Multiple small abrasions due to recurrent frequent fall. Musculoskeletal: Muscle strength 4/5 at right knee and hip joints, weaker than left side. No Tenderness to Palpation of Joints or Extremities Neurological: Cranial nerves II-XII grossly intact, DTR 2+/4, symmetrical intact to gross sensory touch. Psych/Mental Status: Flat affect Assessment & Plan Assessment/Plan (1) Hypoxia: PLAN: Plan 68-year-old is admitted with generalized weakness and fall at home. He had been weak for 1 to 2 days. Lives alone at home. Fell down twice today. 1. Adult failure to thrive with debility and inability to complete ADLs, low functional status: Patient has weak swallow function, and right-sided weakness and lower speech probably from previous stroke in February 2022. PT and OT and speech therapist evaluating and managing him. Patient had modified barium swallow which shows silent aspiration. Diet was modified accordingly as per speech therapist recommendation. Patient has multiple recurrent and frequent falls at home. depending upon PT and OT final evaluation he might need SNF. Discussed with patient's brother over the phone. 12/23: Continue Rocephin and metronidazole. 2. Aspiration with high suspicion of aspiration pneumonia: Chest x-ray individually reviewed and shows bilateral infiltrate left more than right. Bibasilar atelectasis. Patient on IV ceftriaxone and metronidazole 3. Acute on chronic biventricular heart failure with severe pulmonary hypertension, valvular heart disease, CAD status post stent/history of CVA, hypertension and dyslipidemia: 2D echo was done Engineering Programmer: With biventricular heart failure, EF 35% with moderate global severe LV systolic dysfunction. Severely dilated RV with global systolic dysfunction, PASP 90 mmHg, severe 4+ TR. Severe pulmonary hypertension. Both right and left atria are severely enlarged. 1-2+ MR. Patient on Plavix, atorvastatin, carvedilol. On IV furosemide. Heart failure core measures including intake and output, fluid restriction less than 1500 mL, daily weight monitoring, kidney and electrolytes monitoring. ? 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 Continue diuretic. I addressed the CODE STATUS with the patient and his brother. His brother said he manage his CODE STATUS himself and does not have advanced directive. 3. Chronic iron deficiency anemia ? Hemoglobin between 10 to 11 g%. ? Continue with his iron replacement 4. Anxiety/depression ? Stable ? Continue with the medications DVT: Heparin I called his brother over the phone Wilfrido Tong [phone] and gave overall clinical picture along with chest x-ray, echo and modified barium swallow findings. Based on multiple active issues and very low functional status and independent ADL, his prognosis is worse. 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 Total time of the visit including total time spent in counseling or coordination of care, (more than 50% of the total time, spent in obtaining medical information from nurses and other ancillary care providers,explaining to the patient about labs, imaging, diagnosis and management of active complex medical conditions), , review of labs and imaging is 50 minutes. Clinical Impression(s) from Imaging Studies Brain CT 12/20/22 08:18 IMPRESSION: Chronic involutional changes of the brain. Electronically Signed: Randy Murrell MD at 10:06 EDT , Chest X-Ray 12/20/22 14:05 IMPRESSION: Borderline cardiomegaly. Findings suggestive of CHF with possible atelectasis and/or infiltrate in the left lower lobe. Chest X-Ray 12/21/22 05:55 IMPRESSION: Improvement in the CHF although there has been progressive bibasilar atelectasis and/or infiltrates. Electronically Signed: Randy Murrell MD at 14:07 EDT , Echocardiogram 12/21/22 05:55 Interpretation Summary Moderately severe global left ventricular systolic dysfunction. The left ventricular ejection fraction is 35 %. Severely dilated right ventricle. Severe global right ventricular systolic dysfunction. The left atrium is severely enlarged. The right atrium is severely enlarged. Mild-Moderate (1-2+) mitral valve insufficiency. Severe (4+) tricuspid valve insufficiency. Pulmonary artery systolic pressure is 90 mmHg. Severe pulmonary hypertension. Renal Ultrasound 12/21/22 05:55 IMPRESSION: Normal ultrasound of the kidneys and urinary bladder. Electronically Signed: Randy Murrell MD at 12:38 EDT , Microbiology Past 72 Hours 12/20/22 14:42 Blood Culture (Wb) - Left Forearm Blood Culture - Preliminary No growth in 48 hours. 12/20/22 08:40 Blood Culture (Wb) - Left Forearm Blood Culture - Preliminary No growth in 48 hours. 12/20/22 16:54 Mucosa - Nasopharyngeal Respiratory Panel (PCR) - Final 12/20/22 12:10 Urine, Clean Catch Legionella Antigen - Final 12/20/22 12:10 Urine, Clean Catch Streptococcus pneumoniae Antigen (M - Final 12/20/22 08:35 Nasal Secretion SARS-CoV-2 & FLU Antigen (Rapid) - Final Laboratory Results 12/21/22 04:46: JALEN Screen Negative 12/21/22 04:46: c-ANCA Antibody <1:20, Atypical p-ANCA <1:20, p-ANCA Antibody <1:20, Complement C3 93, Complement C4 17 12/22/22 05:35: POC Glucose 83 12/22/22 07:15: WBC 5.8, RBC 4.12 L, Hgb 10.9 L, Hct 35.6 L, MCV 86.4, MCH 26.5 L, MCHC 30.6 L, RDW Std Deviation 51.0 H, RDW Coeff of Ave 16.1 H, Plt Count 185, MPV 12.0, Immature Gran % (Auto) 0.900, Neut % (Auto) 73.2 H, Lymph % (Auto) 14.4 L, [place] % (Auto) 6.0, Eos % (Auto) 4.8, Baso % (Auto) 0.7, Absolute Neuts (auto) 4.3, Absolute Lymphs (auto) 0.84, Nucleated RBC % 0 12/22/22 07:15: Sodium 137, Potassium 4.0, Chloride 108 H, Carbon Dioxide 22.0, Anion Gap 7, BUN 30 H, Creatinine 2.66 H, Estim Creat Clear Calc 29.97, Est GFR (MDRD) Af Amer 32 L, Est GFR (MDRD) Non-Af 26 L, BUN/Creatinine Ratio 11.3, Glucose 93, Calcium 8.0 L, Total Bilirubin 0.60, AST 19, ALT 13 L, Alkaline Phosphatase 91, Total Protein 5.6 L, Albumin 3.0 L, Globulin 2.6, Albumin/Globulin Ratio 1.2 Charges/Coding Visit Charges Inpatient E&M: 36973 Subs Hosp L3
--- NOTE | 2022-12-23 10:48 | CON.PCM.CC_ITS ---
HPI Consult Data Date of Consult: 12/23/22 HPI Narrative HPI Narrative: KALYANI LIVINGSTON, is a 62 M who presents [facility] Medical History (Updated 12/21/22 @ 11:00 by KENYA Contreras) Acute cerebrovascular accident of cerebellum Ankle fracture, left Atherosclerotic heart disease of [place] coronary artery without angina pectoris CKD (chronic kidney disease), stage IV Essential hypertension History of left heart catheterization (LHC) (~02/26/19) Neck fracture PFO (patent foramen ovale) Presence of stent in coronary artery (~02/26/19) Pure hypercholesterolemia Smokeless tobacco use Tobacco chew use Uncontrolled type 2 diabetes mellitus Home Medications nitroglycerin 0.4 mg sublingual tablet 0.4 mg sublingual Q5M PRN Chest Pain #0 tabs 03/07/22 [Rx Last Taken Unknown] acetaminophen 325 mg tablet 650 mg PO Q4H PRN Pain 06/05/22 [History Last Taken Unknown] amlodipine 10 mg tablet 10 mg PO DAILY heart 06/05/22 [History Last Taken Unknown] cholecalciferol (vitamin D3) 1,250 mcg (50,000 unit) capsule 1,250 mcg PO QWEEK supplement 06/05/22 [History Last Taken Unknown] ferrous sulfate 325 mg (65 mg iron) tablet (FeroSul) 325 mg PO BID supplement 06/05/22 [History Last Taken Unknown] magnesium hydroxide 400 mg/5 mL oral suspension (Milk of Magnesia) 30 ml PO DAILY PRN Constipation 06/05/22 [History Last Taken Unknown] mirtazapine 15 mg tablet 15 mg PO QHS sleep 06/05/22 [History Last Taken 12/19/22] tramadol 50 mg tablet 50 mg PO Q6H PRN Pain 06/05/22 [History Last Taken Unknown] ondansetron 4 mg disintegrating tablet 4 mg PO Q8H PRN PRN Nausea #10 tabs 11/17/22 [Rx Last Taken Unknown] atorvastatin 40 mg tablet 40 mg PO QHS cholesterol 12/20/22 [History Last Taken 12/19/22] carvedilol 25 mg tablet 25 mg PO BID heart 12/20/22 [History Last Taken Unknown] clopidogrel 75 mg tablet 75 mg PO DAILY blood thinner 12/20/22 [History Last Taken 12/19/22] isosorbide mononitrate 30 mg tablet,extended release 24 hr 30 mg PO DAILY heart 12/20/22 [History Last Taken 12/19/22] Allergy/AdvReac Type Severity Reaction Status Date / Time ampicillin Allergy Swelling Verified 06/05/22 14:32 fish derived Allergy Swelling Verified 08/25/22 13:38 [seafood - derived] ibuprofen [From Motrin] Allergy Swelling Verified 06/05/22 14:32 shellfish derived Allergy Swelling Verified 08/25/22 13:38 [seafood - shellfish] Family History (Updated 12/20/22 @ 18:[address] Tiara Pritchard MD) Mother Heart disease Hypertension Father Heart disease Hypertension Surgical History H/O bilateral hip replacements Presence of coronary angioplasty implant and graft (~02/26/19) Social History (Updated 12/20/22 @ 18:[address] Tiara Pritchard MD) household members: none Smoking Status: Former smoker Smokeless tobacco user: chewing tobacco alcohol intake: never substance use type: does not use caffeine: Yes Lab / Micro Data Result Diagrams: 12/22/22 07:15 12/22/22 07:15 Labs: Laboratory Results - last 24 hr 12/21/22 04:46: JALEN Screen Negative 12/21/22 04:46: c-ANCA Antibody <1:20, Atypical p-ANCA <1:20, p-ANCA Antibody <1:20, Complement C3 93, Complement C4 17 Micro: Microbiology 12/20/22 14:42 Blood Culture (Wb) - Left Forearm Blood Culture - Preliminary No growth in 48 hours. 12/20/22 08:40 Blood Culture (Wb) - Left Forearm Blood Culture - Preliminary No growth in 48 hours. Radiology Impression Echocardiogram 12/21/22 05:55 Interpretation Summary Moderately severe global left ventricular systolic dysfunction. The left ventricular ejection fraction is 35 %. Severely dilated right ventricle. Severe global right ventricular systolic dysfunction. The left atrium is severely enlarged. The right atrium is severely enlarged. Mild-Moderate (1-2+) mitral valve insufficiency. Severe (4+) tricuspid valve insufficiency. Pulmonary artery systolic pressure is 90 mmHg. Severe pulmonary hypertension. Ordering Physician: Tiara Pritchard Referring Physician: Rosario Arroyo Performed By: Maria Alvarez RCS Renal Ultrasound 12/21/22 05:55 IMPRESSION: Normal ultrasound of the kidneys and urinary bladder. Electronically Signed: Randy Murrell MD at 12:38 EDT ,
[2022-12-23 10:58] VITALS: BP 159/112; PULSE 77; RESP 16; TEMP 36.6; O2SAT 97
[2022-12-23] MEDS: Aspirin E.C. 81 MG Tablet PO (11:11)
[2022-12-23] MEDS: amLODIPine 10 MG Tablet PO (11:11)
[2022-12-23] MEDS: Isosorbide Mononitrate 30 MG Tablet PO (11:11)
[2022-12-23] MEDS: Carvedilol 25 MG Tablet PO ×2 (11:11→22:20)
[2022-12-23] MEDS: Multivitamins,Therapeutic Tablet 1 TABLET PO (11:11)
[2022-12-23] MEDS: Clopidogrel Bisulfate 75 MG Tablet PO (11:11)
[2022-12-23] MEDS: Ferrous Sulfate 325 MG Tablet PO ×2 (11:11→16:18)
[2022-12-23] MEDS: Heparin Injection (Vial) 5,000 UNIT/ML VIAL 5000 UNIT SC ×2 (11:11→22:19)
[2022-12-23] MEDS: Furosemide 40 MG/4 ML Vial IV ×2 (11:12→22:21)
--- NOTE | 2022-12-23 11:23 | EX.PCM.SENPN ---
Subjective Subjective See pulmonary consult note. In view of the patient's severe secondary pulmonary hypertension due to underlying heart disease, multiple episodes of syncope in the past month, patient stating he has had more than a dozen heart attacks, severely debilitated with reduced exercise tolerance measured in feet, I discussed with the patient might want if you should pass out and his heart stop or breathing stop, asking permission regarding whether we should resuscitate him or not, put him on life support, and give a shock to the heart to get going again. He stated emphatically multiple times, and again when I had his bedside nurse in the room with me, that he would not want to be placed on life support, would not want CPR or cardioversion. We went on to discuss his wishes regarding more treatments including dialysis, central lines, catheterization. He stated that he would not want any of those. He confirmed this multiple times both myself and to the nurse. I am therefore changing his CODE STATUS from full code to DNR CCA without intubation. He also should not have dialysis or other invasive treatments. Objective Data Objective Data Vital Signs: Vital Signs Temp Pulse Resp BP Pulse Ox O2 Del Method O2 Flow Rate 98 F 77 16 159/112 H 97 Room Air 3 12/23/22 10:58 12/23/22 10:58 12/23/22 10:58 12/23/22 10:58 12/23/22 10:58 12/23/22 10:58 12/20/22 21:49 Oxygen Flow Rate (L/min) 3 Oxygen Delivery Method Room Air Weight: 154 lb 15.759 oz Body Mass Index (BMI) 20.9 Intake & Output: Intake and Output for Last 24 Hours 12/21/22 12/22/22 12/23/22 23:59 23:59 23:59 Intake Total 470 / 470 590 / 590 100 / 100 Output Total 1200 / 1200 1750 / 1750 400 / 400 Balance -730 / -730 -1160 / -1160 -300 / -300 Lab / Micro Data Result Diagrams: 12/22/22 07:15 12/22/22 07:15 Labs: Laboratory Results - last 24 hr 12/21/22 04:46: JALEN Screen Negative 12/21/22 04:46: c-ANCA Antibody <1:20, Atypical p-ANCA <1:20, p-ANCA Antibody <1:20, Complement C3 93, Complement C4 17 Micro: Microbiology 12/20/22 14:42 Blood Culture (Wb) - Left Forearm Blood Culture - Preliminary No growth in 48 hours. 12/20/22 08:40 Blood Culture (Wb) - Left Forearm Blood Culture - Preliminary No growth in 48 hours. 12/20/22 16:54 Mucosa - Nasopharyngeal Respiratory Panel (PCR) - Final 12/20/22 12:10 Urine, Clean Catch Legionella Antigen - Final 12/20/22 12:10 Urine, Clean Catch Streptococcus pneumoniae Antigen (M - Final 12/20/22 08:35 Nasal Secretion SARS-CoV-2 & FLU Antigen (Rapid) - Final Radiography Diagnostic Testing: Radiology Impression Echocardiogram 12/21/22 05:55 Interpretation Summary Moderately severe global left ventricular systolic dysfunction. The left ventricular ejection fraction is 35 %. Severely dilated right ventricle. Severe global right ventricular systolic dysfunction. The left atrium is severely enlarged. The right atrium is severely enlarged. Mild-Moderate (1-2+) mitral valve insufficiency. Severe (4+) tricuspid valve insufficiency. Pulmonary artery systolic pressure is 90 mmHg. Severe pulmonary hypertension. Ordering Physician: Tiara Pritchard Referring Physician: Rosario Arroyo Performed By: Maria Alvarez RCS Renal Ultrasound 12/21/22 05:55 IMPRESSION: Normal ultrasound of the kidneys and urinary bladder. Electronically Signed: Randy Murrell MD at 12:38 EDT ,
--- NOTE | 2022-12-23 11:26 | CON.PCM.CC_ITS ---
Assessment & Plan Assessment/Plan (1) Pulmonary hypertension assoc with unclear multi-factorial mechanisms: (2) Ischemic dilated cardiomyopathy: PLAN: Plan Impression: 1.? Severe ischemic cardiomyopathy, with focal wall motion abnormalities now evolved to global hypokinesis, RV dilation, marked worsening over the past 3 years, with severe pulmonary hypertension worsened from 45 to 90 mm likely secondary to left heart failure and new onset tricuspid regurgitation likely due to back pressure, complicated by ascites and pleural effusions.? This may have been caused by chronic hypoxemia with a differential diagnosis of ischemic cardiomyopathy, congestive heart failure, chronic aspiration, pulmonary venoocclusive disease, shunt, interstitial lung disease, obstructive sleep apnea, and chronic thromboembolic disease.? COPD is less likely because the patient was a very light cigar smoker for short time.? He also does not have typical symptoms of COPD including no wheezing or cough.? His poor prognosis is evident due to his gradual failure to thrive since last year.? He has had increasing falls which is likely due to hypotension from exertion due to pulmonary hypertension.? This is usually a sign of very advanced pulmonary hypertension, with a short life expectancy.? His decision to avoid life support resuscitation dialysis and mechanical ventilation is appropriate under the circumstances. 2.? Severe pulmonary hypertension.? Again this is very unlikely to be primary pulmonary hypertension and is more likely group 2 (cardiac), less likely group 3 (COPD or ABDIFATAH), group 4 (PE), and/or group 5 (advanced renal disease) etiology. Therefore, it should not be treated with pulmonary arterial vasodil ator medications, which could be quite detrimental.? I would consider a noninvasive work-up for easily treatable secondary causes of pulmonary hypertension including ventilation/perfusion lung scanning, pulmonary function testing, and screening for sleep apnea.? It is also possible that chronic hypo laura alone (from CHF) can lead to worsening cardiac ischemia and pulmonary hypertension due to hypoxic pulmonary vascular constriction.? He has a PFO, and may have a right to left shunt now, as his pulmonary hypertension gradually worsened. Recommendations: -??? All these recommendations should be considered in the context of this patient?s living conditions, goals of care, his available resources and social supports, and ability to comply with any prescribed regimen.? Many of these items may not be realistic, beneficial or desired by the patient. -??? Maintain SPO2 greater than 92% at all times -??? ABG on room air -??? Overnight oximetry to screen for sleep apnea followed by complete polysomnography if hypoxia is noted. -??? Ventilation/perfusion lung scan, a low probability or negative scan excludes chronic thromboembolic pulmonary hypertension (group4) -??? Trial of diuresis -??? Complete pulmonary function testing; r/o COPD; a DLCO and DL/VA reduction is associated with primary pulmonary hypertension, with less than 45% associated with poor outcomes -??? Liver function testing -??? D-dimer -??? Serologies (JALEN, ERICA, HIV, collagen vascular disease) -??? I would normally consider referral to a pulmonary hypertension center for right and left heart cath and vasodilator challenge if the simple tests above are negative, to evaluate pulmonary vascular response, possible pulmonary venoocclusive disease, but since the patient does not want very aggressive measures, we will defer at this instance. HPI Consult Data Date of Consult: 12/23/22 HPI Narrative Reason for Consultation: pulmonary hypertension HPI Narrative: This 62 YO M was admitted after falling at home, unable to get up, and failure to thrive. The history was obtained by the patient who is a poor historian but able to answer in 1 or 2 word sentences. PMHx: CKD IV, Chronic iron deficiency anemia, Anxiety and Depression, CAD PTCA/REYNA to Diagonal 02/26/19, HTN, HLD, Chew tobacco use, DM II, cerebellar stroke He was admitted from his home where he lives alone on December 20 for a fall, EMS arrived found him alert and oriented x3 lying on the floor, patient stating he was too weak to walk.? No injury.? Vitals were 115/61 16 respiration 16 pulse 84 regular sinus rhythm O2 saturation 99% with clear lungs normal skin color with good capillary refill.? He stated that he has had several falls lately, is dizzy with any walking.? Is only able to walk a few feet at a time.? In the ER, his O2 saturation was 86% on room air, improved to 98% on 2 L.? He was treated with Rocephin and Flagyl in the ED, and his ED work-up showed improved renal function compared to his baseline, hypertension, white count 5.5, hemoglobin 11.4, platelets 197, CMP unremarkable except for the BUN of 30 creatinine of 2.91, urinalysis with 5 ketones, CT brain stably atrophied, respiratory PCR is negative. Today, he stated he has no cough fevers chills sweats wheezing chest pain or pleurisy.? He has dyspnea with any exertion.? He is a former cigar smoker, quit many years ago, rarely inhaled, and smoked for about 3-5 years.? He has never been on inhalers or oxygen to his recollection.? There is no history of childhood pulmonary illness, asthma, pulmonary embolism, ABDIFATAH, DVT, chest trauma, rib fractures, pneumothorax, or severe infection.? He does not remember being told that he has heart valve abnormalities or pulmonary disease, but stated he had 13 or 14 heart attacks he denies leg edema and had none on exam today, but has bilateral effusions and ascites on his imaging studies. He was also hospitalized 03/04/22 for failure to thrive, altered mental status and stable renal dysfunction, discharged to a longterm since he was not able to take care of himself, supportive care given. He was seen in the ER 11/17/2022 for inability to eat or drink for 2 days because of chest and upper abdominal pressure.? Labs showed anemia, CKD 3, worse from previous, PT 16 INR 1.3 troponin normal x2.? Lactate and ammonia level normal.? Abdomen and pelvis CT scan November 17, 2022 showed moderate ascites, gallbladder distention and sludge without dilation, large bilateral pleural fluid collections, with bibasilar atelectasis, impression was ascites and patient was discharged with Zofran. EMR records were reviewed. [facility] Medical History (Updated 12/23/22 @ 12:[address] Sammy Santiago MD) Acute cerebrovascular accident of cerebellum Ankle fracture, left Atherosclerotic heart disease of [place] coronary artery without angina pectoris CKD (chronic kidney disease), stage IV Essential hypertension History of left heart catheterization (LHC) (~02/26/19) Ischemic dilated cardiomyopathy Neck fracture PFO (patent foramen ovale) Presence of stent in coronary artery (~02/26/19) Pulmonary hypertension assoc with unclear multi-factorial mechanisms Pure hypercholesterolemia Smokeless tobacco use Tobacco chew use Uncontrolled type 2 diabetes mellitus Home Medications nitroglycerin 0.4 mg sublingual tablet 0.4 mg sublingual Q5M PRN Chest Pain #0 tabs 03/07/22 [Rx Last Taken Unknown] acetaminophen 325 mg tablet 650 mg PO Q4H PRN Pain 06/05/22 [History Last Taken Unknown] amlodipine 10 mg tablet 10 mg PO DAILY heart 06/05/22 [History Last Taken Unknow n] cholecalciferol (vitamin D3) 1,250 mcg (50,000 unit) capsule 1,250 mcg PO QWEEK supplement 06/05/22 [History Last Taken Unknown] ferrous sulfate 325 mg (65 mg iron) tablet (FeroSul) 325 mg PO BID supplement 06/05/22 [History Last Taken Unknown] magnesium hydroxide 400 mg/5 mL oral suspension (Milk of Magnesia) 30 ml PO DAILY PRN Constipation 06/05/22 [History Last Taken Unknown] mirtazapine 15 mg tablet 15 mg PO QHS sleep 06/05/22 [History Last Taken 12/19/22] tramadol 50 mg tablet 50 mg PO Q6H PRN Pain 06/05/22 [History Last Taken Unknown] ondansetron 4 mg disintegrating tablet 4 mg PO Q8H PRN PRN Nausea #10 tabs 11/17/22 [Rx Last Taken Unknown] atorvastatin 40 mg tablet 40 mg PO QHS cholesterol 12/20/22 [History Last Taken 12/19/22] carvedilol 25 mg tablet 25 mg PO BID heart 12/20/22 [History Last Taken Unknown] clopidogrel 75 mg tablet 75 mg PO DAILY blood thinner 12/20/22 [History Last Taken 12/19/22] isosorbide mononitrate 30 mg tablet,extended release 24 hr 30 mg PO DAILY heart 12/20/22 [History Last Taken 12/19/22] Allergy/AdvReac Type Severity Reaction Status Date / Time ampicillin Allergy Swelling Verified 06/05/22 14:32 fish derived Allergy Swelling Verified 08/25/22 13:38 [seafood - derived] ibuprofen [From Motrin] Allergy Swelling Verified 06/05/22 14:32 shellfish derived Allergy Swelling Verified 08/25/22 13:38 [seafood - shellfish] Family History Mother Heart disease Hypertension Father Heart disease Hypertension Surgical History H/O bilateral hip replacements Presence of coronary angioplasty implant and graft (~02/26/19) Social History household members: none Smoking Status: Former smoker Smokeless tobacco user: chewing tobacco alcohol intake: never substance use type: does not use caffeine: Yes ROS ROS Narrative 10 system review negative except as above. Physical Exam Narrative Well-developed, well-nourished gentleman no acute distress, lying quietly in bed with good color. Awake and alert, good understanding, able to respond with simple sentences. HEENT normocephalic atraumatic eyes extraocular's are intact pupils are equal and reactive pharynx is unremarkable with moist mucous membranes. Chest is diminished but clear bilaterally with no wheezes rales or rhonchi. No consolidation. Poor effort, likely due to diffuse weakness. Heart normal S1, increased S2, not split, I could not DASCO any murmurs, no rubs or gallops. Abdomen is soft, nontender, mildly distended, not tympanitic, no organomegaly or mass Extremities have no cyanosis or edema. Possible mild clubbing. There is no pitting present. Neurologic exam is diffusely weak but nonfocal. Sensorium is intact patient had good but a simple level of understanding, and was not a good historian. He did understand our discussion about life support today, and did not want to have that for himself should the need arise. Lab / Micro Data Result Diagrams: 12/22/22 07:15 12/22/22 07:15 Labs: Laboratory Results - last 24 hr 12/21/22 04:46: JALEN Screen Negative 12/21/22 04:46: c-ANCA Antibody <1:20, Atypical p-ANCA <1:20, p-ANCA Antibody <1 :20, Complement C3 93, Complement C4 17 Radiology Impression Echocardiogram 12/21/22 05:55 Interpretation Summary Moderately severe global left ventricular systolic dysfunction. The left ventricular ejection fraction is 35 %. Severely dilated right ventricle. Severe global right ventricular systolic dysfunction. The left atrium is severely enlarged. The right atrium is severely enlarged. Mild-Moderate (1-2+) mitral valve insufficiency. Severe (4+) tricuspid valve insufficiency. Pulmonary artery systolic pressure is 90 mmHg. Severe pulmonary hypertension. Ordering Physician: Tiara Pritchard Referring Physician: Rosario Arroyo Performed By: Maria Alvarez RCS Renal Ultrasound 12/21/22 05:55 IMPRESSION: Normal ultrasound of the kidneys and urinary bladder. Electronically Signed: Randy Murrell MD at 12:38 EDT , Charges/Coding Visit Charges Inpatient E&M: 79179 Init [facility] L3
[2022-12-23 14:58] VITALS: BP 123/73; BP 128/76; PULSE 74; RESP 20; TEMP 36.1; O2SAT 98
--- NOTE | 2022-12-23 16:39 | CASEMGMT ---
Social Work Note SW met with patient and introduced herself and role as [facility] Secondary Set Up Man. SW explained therapy staff were recommending SNF for patient. Patient reports he would like to return home but if he needs to go he is open to going to [facility] as he has been there before. SW briefly reviewed referral process and inquired about patient's second or third choice. Patient request SW assist patient in reviewing a list. SW provided patient with a list of SNF in network with patient's insurance in patient's preferred area and reviewed the options. Patient reports being unsure of other choices but in agreement with SW sending a referral to [facility] for now. SW will follow up if additional choices are needed. SW sent referral to [facility] via [employer]. Plan: SNF [facility]DELL, JACKY
--- NOTE | 2022-12-23 16:41 | PCM.PN.REN ---
Subjective Subjective Patient feels okay No acute events Urine output is adequate Objective Data Objective Data Vital Signs: Vital Signs Temp Pulse Resp BP Pulse Ox O2 Del Method O2 Flow Rate 97 F L 74 20 H 128/76 H 98 Room Air 3 12/23/22 14:58 12/23/22 14:58 12/23/22 14:58 12/23/22 14:58 12/23/22 14:58 12/23/22 14:59 12/20/22 21:49 Oxygen Flow Rate (L/min) 3 Oxygen Delivery Method Room Air Weight: 70.3 kg Body Mass Index (BMI) 20.9 Intake & Output: Intake and Output for Last 24 Hours 12/21/22 12/22/22 12/23/22 23:59 23:59 23:59 Intake Total 470 / 470 590 / 590 490 / 490 Output Total 1200 / 1200 1750 / 1750 1200 / 1200 Balance -730 / -730 -1160 / -1160 -710 / -710 Lab / Micro Data Attestation: I reviewed the patient's lab results. Result Diagrams: 12/22/22 07:15 12/22/22 07:15 Micro: Microbiology 12/20/22 14:42 Blood Culture (Wb) - Left Forearm Blood Culture - Preliminary No growth in 48 hours. 12/20/22 08:40 Blood Culture (Wb) - Left Forearm Blood Culture - Preliminary No growth in 48 hours. 12/20/22 16:54 Mucosa - Nasopharyngeal Respiratory Panel (PCR) - Final 12/20/22 12:10 Urine, Clean Catch Legionella Antigen - Final 12/20/22 12:10 Urine, Clean Catch Streptococcus pneumoniae Antigen (M - Final 12/20/22 08:35 Nasal Secretion SARS-CoV-2 & FLU Antigen (Rapid) - Final Physical Exam Narrative Alert and oriented x3, no apparent distress, having difficult time recalling past events S1, S2, RRR Lung sounds clear anteriorly. No wheezes, rhonchi or rales noted. Diminished breath sounds posterior bases Abdomen soft, nontender, positive bowel sounds No pitting edema noted bilateral lower legs or feet Assessment & Plan Assessment/Plan (1) CKD (chronic kidney disease), stage IV: (2) Aspiration pneumonia: (3) Type 2 diabetes mellitus: PLAN: Plan RASHAWN CKD stage IV Baseline creatinine has been between 2.5-2.7. Creatinine is slightly better today, closer to baseline. Urinalysis showed hematuria and proteinuria. Urine protein creatinine ratio +600 mg rest of the serologies are pending. Since creatinine is better, no acute indications for biopsy etc. -Renal function is relatively stable serum creatinine 2.6 mg/dL -Complements are negative -ANCA is unremarkable, JALEN is negative -Currently on low-dose IV Lasix -Add anti-GBM Continue with supportive care Renal panel in the morning
[2022-12-23 20:05] VITALS: BP 123/86; PULSE 75; RESP 16; TEMP 36.8; O2SAT 96
[2022-12-23] MEDS: Atorvastatin Calcium 40 MG Tablet PO (22:19)
[2022-12-23] MEDS: Mirtazapine 15 MG Tablet PO (22:20)
[2022-12-24 01:30] VITALS: BP 126/77; PULSE 75; RESP 20; TEMP 36.9; O2SAT 98
[2022-12-24 05:18] LABS: Anion Gap 5 (5-15); BUN 32 mg/dL (7-18); BUN/Creat Ratio 10.5 RATIO (10-20); Calcium,Total 8.3 mg/dL (8.5-10.1); Chloride 101 mmol/L (98-107); Creatinine, Serum 3.05 mg/dL (0.70-1.30); EST Glomerular Filtration Rate 22 mL/min (>60); Est Glom Filt Rate - Afr Amer 27 mL/min (>60); Estimated Creatinine Clearance 24.97 ml/min; Glucose 109 mg/dL (74-106); Potassium 4.5 mmol/L (3.5-5.1); Sodium Level 135 mmol/L (136-145)
[2022-12-24 06:00] VITALS: BMI 20.6
[2022-12-24] MEDS: metroNIDAZOLE 500 MG/100 ML BAG 100 MG IV ×3 (06:18→23:13)
[2022-12-24 07:25] VITALS: O2SAT 95
[2022-12-24 11:08] VITALS: BP 126/77; PULSE 75; RESP 20; TEMP 36.9; O2SAT 98
[2022-12-24 11:15] VITALS: BP 143/96; PULSE 78; RESP 18; TEMP 36.7; O2SAT 98
[2022-12-24] MEDS: Multivitamins,Therapeutic Tablet 1 TABLET PO (11:20)
[2022-12-24] MEDS: Aspirin E.C. 81 MG Tablet PO (11:20)
[2022-12-24] MEDS: amLODIPine 10 MG Tablet PO (11:20)
[2022-12-24] MEDS: Ferrous Sulfate 325 MG Tablet PO ×2 (11:20→15:20)
[2022-12-24] MEDS: Clopidogrel Bisulfate 75 MG Tablet PO (11:20)
[2022-12-24] MEDS: Isosorbide Mononitrate 30 MG Tablet PO (11:20)
[2022-12-24] MEDS: Carvedilol 25 MG Tablet PO ×2 (11:21→23:15)
[2022-12-24] MEDS: Heparin Injection (Vial) 5,000 UNIT/ML VIAL 5000 UNIT SC ×2 (11:21→23:13)
[2022-12-24] MEDS: Furosemide 40 MG/4 ML Vial IV ×2 (11:22→23:13)
[2022-12-24] MEDS: 0.9% Saline Lock 10 ML Syringe IV (11:22)
[2022-12-24 15:15] VITALS: BP 107/72; PULSE 68; RESP 18; TEMP 36.6; O2SAT 96
--- NOTE | 2022-12-24 15:33 | PN.HOSP_ITS ---
Reason for Visit Reason for Visit: Diagnoses Type 2 diabetes mellitus without complications (12/20/22) Ischemic cardiomyopathy (12/20/22) Other secondary pulmonary hypertension (12/20/22) Dilated cardiomyopathy (12/20/22) Pneumonitis due to inhalation of food and vomit (12/20/22) Chronic kidney disease, stage 4 (severe) (12/20/22) Hypoxemia (12/20/22) Syncope and collapse (12/20/22) Follow-up for multiple issues including heart failure, pulmonary hypertension, CKD, dysphagia and low functional status/failure to thrive Objective Data Objective Data Vital Signs: Vital Signs Temp Pulse Resp BP Pulse Ox O2 Del Method O2 Flow Rate 97.9 F 68 18 107/72 96 Room Air 3 12/24/22 15:15 12/24/22 15:15 12/24/22 15:15 12/24/22 15:15 12/24/22 15:15 12/24/22 15:15 12/20/22 21:49 Oxygen Flow Rate (L/min) 3 Oxygen Delivery Method Room Air Weight: 152 lb 1.903 oz Body Mass Index (BMI) 20.6 Intake & Output: Intake and Output for Last 24 Hours 12/22/22 12/23/22 12/24/22 23:59 23:59 23:59 Intake Total 590 / 590 830 / 830 590 / 590 Output Total 1750 / 1750 1900 / 1900 1100 / 1100 Balance -1160 / -1160 -1070 / -1070 -510 / -510 Lab / Micro Data Result Diagrams: 12/22/22 07:15 12/24/22 04:25 Labs: Laboratory Results - last 24 hr 12/24/22 04:25: Sodium 135 L, Potassium 4.5, Chloride 101, Carbon Dioxide 29.0, Anion Gap 5, BUN 32 H, Creatinine 3.05 H, Estim Creat Clear Calc 24.97, Est GFR (MDRD) Af Amer 27 L, Est GFR (MDRD) Non-Af 22 L, BUN/Creatinine Ratio 10.5, Gluc ose 109 H, Calcium 8.3 L Micro: Microbiology 12/20/22 14:42 Blood Culture (Wb) - Left Forearm Blood Culture - Preliminary No growth in 48 hours. 12/20/22 08:40 Blood Culture (Wb) - Left Forearm Blood Culture - Preliminary No growth in 48 hours. 12/20/22 16:54 Mucosa - Nasopharyngeal Respiratory Panel (PCR) - Final 12/20/22 12:10 Urine, Clean Catch Legionella Antigen - Final 12/20/22 12:10 Urine, Clean Catch Streptococcus pneumoniae Antigen (M - Final 12/20/22 08:35 Nasal Secretion SARS-CoV-2 & FLU Antigen (Rapid) - Final Physical Exam Narrative Patient shortness of breath is on baseline. Patient is still very weak but working with physical therapist. Can stand bedside without support with PT on side Physical exam General: Alert, Oriented x3, Cooperative HEENT: Atraumatic, PERRLA, EOMI, Normocephalic Oral: Oral mucosa moist. No Gingival or Mucosal Lesions/ Ulcerations Neck: Supple, No JVD, Negative Carotid Bruits Lungs: Air entry diminished in bilateral lung bases. No crepitation/rhonchi, weak cough reflex. Cardiovascular: Regular rate, Regular Rhythm, Normal S1, Normal S2, systolic murmur over LLSB. Abdomen: Bowel Sounds Present, Soft, Non Tender, Non-Distended : No renal angle tenderness. No suprapubic tenderness. Extremities: No edema, Capillary Refill Less than 3 Seconds Skin: Multiple small abrasions due to recurrent frequent fall. Musculoskeletal: Muscle strength 4/5 at right knee and hip joints, weaker than left side. No Tenderness to Palpation of Joints or Extremities Neurological: Cranial nerves II-XII grossly intact, DTR 2+/4, symmetrical intact to gross sensory touch. Psych/Mental Status: Flat affect Assessment & Plan Assessment/Plan (1) Hypoxia: PLAN: Plan 68-year-old is admitted with generalized weakness and fall at home. He had been weak for 1 to 2 days. Lives alone at home. Fell down twice today. 1. Adult failure to thrive with debility and inability to complete ADLs, low f unctional status: Patient has weak swallow function, and right-sided weakness and lower speech probably from previous stroke in February 2022. PT and OT and speech therapist evaluating and managing him. Patient had modified barium swallow which shows silent aspiration. Diet was modified accordingly as per speech therapist recommendation. Patient has multiple recurrent and frequent falls at home. depending upon PT and OT final evaluation he might need SNF. Discussed with patient's brother over the phone. 12/23: Continue Rocephin and metronidazole. 2. Aspiration with high suspicion of aspiration pneumonia: Chest x-ray individually reviewed and shows bilateral infiltrate left more than right. Bibasilar atelectasis. Patient on IV ceftriaxone and metronidazole 3. Acute on chronic biventricular heart failure with severe pulmonary hypertension, valvular heart disease, CAD status post stent/history of CVA, hypertension and dyslipidemia: 2D echo was done [employer]: With biventricular heart failure, EF 35% with moderate global severe LV systolic dysfunction. Severely dilated RV with global systolic dysfunction, PASP 90 mmHg, severe 4+ TR. Severe pulmonary hypertension. Both right and left atria are severely enlarged. 1-2+ MR. Patient on Plavix, atorvastatin, carvedilol. On IV furosemide. Heart failure core measures including intake and output, fluid restriction less than 1500 mL, daily weight monitoring, kidney and electrolytes monitoring. ? 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 Continue diuretic. I addressed the CODE STATUS with the patient and his brother. His brother said he manage his CODE STATUS himself and does not have advanced directive. 12/24: Evaluated by core manager for severe pulmonary hypertension. It seems mainly due to group 2 cardiac causes. Patient ischemic cardiomyopathy progressed over 3 years from focal wall motion abnormality to global hypokinesis RV dilatation with severe TR leading to vasitis and bilateral pleural effusion. Patient does not want aggressive management but can follow-up with pulmonary clinic for VQ scan, PFT, sleep apnea and work-up for collagen vascular disease.Continue trial of diuresis. 3. Chronic iron deficiency anemia ? Hemoglobin between 10 to 11 g%. ? Continue with his iron replacement 4. Anxiety/depression ? Stable ? Continue with the medications DVT: Heparin I called his brother over the phone Wilfrido Tong [phone] and gave overall clinical picture along with chest x-ray, echo and modified barium swallow findings. Based on multiple active issues and very low functional status and independent ADL, his prognosis is worse. 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 Total time of the visit including total time spent in counseling or coordination of care, (more than 50% of the total time, spent in obtaining medical information from nurses and other ancillary care providers,explaining to the patient about labs, imaging, diagnosis and management of active complex medical conditions), , review of labs and imaging is 50 minutes. Clinical Impression(s) from Imaging Studies Brain CT 12/20/22 08:18 IMPRESSION: Chronic involutional changes of the brain. Electronically Signed: Randy Murrell MD at 10:06 EDT , Chest X-Ray 12/20/22 14:05 IMPRESSION: Borderline cardiomegaly. Findings suggestive of CHF with possible atelectasis and/or infiltrate in the left lower lobe. Chest X-Ray 12/21/22 05:55 IMPRESSION: Improvement in the CHF although there has been progressive bibasilar atelectasis and/or infiltrates. Electronically Signed: Randy Murrell MD at 14:07 EDT , Echocardiogram 12/21/22 05:55 Interpretation Summary Moderately severe global left ventricular systolic dysfunction. The left ventricular ejection fraction is 35 %. Severely dilated right ventricle. Severe global right ventricular systolic dysfunction. The left atrium is severely enlarged. The right atrium is severely enlarged. Mild-Moderate (1-2+) mitral valve insufficiency. Severe (4+) tricuspid valve insufficiency. Pulmonary artery systolic pressure is 90 mmHg. Severe pulmonary hypertension. Renal Ultrasound 12/21/22 05:55 IMPRESSION: Normal ultrasound of the kidneys and urinary bladder. Electronically Signed: Randy Murrell MD at 12:38 EDT , Microbiology Past 72 Hours 12/20/22 14:42 Blood Culture (Wb) - Left Forearm Blood Culture - Preliminary No growth in 48 hours. 12/20/22 08:40 Blood Culture (Wb) - Left Forearm Blood Culture - Preliminary No growth in 48 hours. 12/20/22 16:54 Mucosa - Nasopharyngeal Respiratory Panel (PCR) - Final 12/20/22 12:10 Urine, Clean Catch Legionella Antigen - Final 12/20/22 12:10 Urine, Clean Catch Streptococcus pneumoniae Antigen (M - Final 12/20/22 08:35 Nasal Secretion SARS-CoV-2 & FLU Antigen (Rapid) - Final Laboratory Results 12/21/22 04:46: JALEN Screen Negative 12/21/22 04:46: c-ANCA Antibody <1:20, Atypical p-ANCA <1:20, p-ANCA Antibody <1:20, Complement C3 93, Complement C4 17 12/22/22 05:35: POC Glucose 83 12/22/22 07:15: WBC 5.8, RBC 4.12 L, Hgb 10.9 L, Hct 35.6 L, MCV 86.4, MCH 26.5 L, MCHC 30.6 L, RDW Std Deviation 51.0 H, RDW Coeff of Ave 16.1 H, Plt Count 185, MPV 12.0, Immature Gran % (Auto) 0.900, Neut % (Auto) 73.2 H, Lymph % (Auto) 14.4 L, [place] % (Auto) 6.0, Eos % (Auto) 4.8, Baso % (Auto) 0.7, Absolute Neuts (auto) 4.3, Absolute Lymphs (auto) 0.84, Nucleated RBC % 0 12/22/22 07:15: Sodium 137, Potassium 4.0, Chloride 108 H, Carbon Dioxide 22.0, Anion Gap 7, BUN 30 H, Creatinine 2.66 H, Estim Creat Clear Calc 29.97, Est GFR (MDRD) Af Amer 32 L, Est GFR (MDRD) Non-Af 26 L, BUN/Creatinine Ratio 11.3, Glucose 93, Calcium 8.0 L, Total Bilirubin 0.60, AST 19, ALT 13 L, Alkaline Phosphatase 91, Total Protein 5.6 L, Albumin 3.0 L, Globulin 2.6, Albumin/Globulin Ratio 1.2 Charges/Coding Visit Charges Inpatient E&M: 70544 Subs Hosp L2
--- NOTE | 2022-12-24 17:02 | PN.CC_ITS ---
Assessment & Plan Assessment/Plan (1) Pulmonary hypertension assoc with unclear multi-factorial mechanisms: (2) Ischemic dilated cardiomyopathy: PLAN: Plan Impression: 1.? Severe ischemic cardiomyopathy, with focal wall motion abnormalities now evolved to global hypokinesis, RV dilation, marked worsening over the past 3 years, with severe pulmonary hypertension worsened from 45 to 90 mm likely secondary to left heart failure and new onset tricuspid regurgitation likely due to back pressure, complicated by ascites and pleural effusions.? This may have been caused by chronic hypoxemia with a large differential diagnosis as outlined in yesterday's note. - Recommendations as per yesterday's consultation note. - Currently arranged recommended tests, patient is stable - pulmonary will sign off for now, please call if further consultation and review of results are needed. Outpatient follow-up in pulmonary clinic as recommended. 2.? Severe pulmonary hypertension. - Recommendations as per yesterday's consultation note. Thank you for consulting pulmonary [facility] of [place]. Subjective Subjective Patient feels about the same today, with no increase symptoms. Denies any cough, sputum production, chest pain, wheezing remains mostly bedbound. Objective Data Objective Data Vital Signs: Vital Signs Temp Pulse Resp BP Pulse Ox O2 Del Method O2 Flow Rate 97.9 F 68 18 107/72 96 Room Air 3 12/24/22 15:15 12/24/22 15:15 12/24/22 15:15 12/24/22 15:15 12/24/22 15:15 12/24/22 15:15 12/20/22 21:49 Oxygen Flow Rate (L/min) 3 Oxygen Delivery Method Room Air Weight: 152 lb 1.903 oz Body Mass Index (BMI) 20.6 Intake & Output: Intake and Output for Last 24 Hours 12/22/22 12/23/22 12/24/22 23:59 23:59 23:59 Intake Total 590 / 590 830 / 830 930 / 930 Output Total 1750 / 1750 1900 / 1900 1450 / 1450 Balance -1160 / -1160 -1070 / -1070 -520 / -520 Lab / Micro Data Attestation: I reviewed the patient's lab results. Result Diagrams: 12/22/22 07:15 12/24/22 04:25 Labs: Laboratory Results - last 24 hr 12/24/22 04:25: Sodium 135 L, Potassium 4.5, Chloride 101, Carbon Dioxide 29.0, Anion Gap 5, BUN 32 H, Creatinine 3.05 H, Estim Creat Clear Calc 24.97, Est GFR (MDRD) Af Amer 27 L, Est GFR (MDRD) Non-Af 22 L, BUN/Creatinine Ratio 10.5, Glucose 109 H, Calcium 8.3 L Micro: Microbiology 12/20/22 14:42 Blood Culture (Wb) - Left Forearm Blood Culture - Preliminary No growth in 48 hours. 12/20/22 08:40 Blood Culture (Wb) - Left Forearm Blood Culture - Preliminary No growth in 48 hours. 12/20/22 16:54 Mucosa - Nasopharyngeal Respiratory Panel (PCR) - Final 12/20/22 12:10 Urine, Clean Catch Legionella Antigen - Final 12/20/22 12:10 Urine, Clean Catch Streptococcus pneumoniae Antigen (M - Final 12/20/22 08:35 Nasal Secretion SARS-CoV-2 & FLU Antigen (Rapid) - Final Physical Exam Narrative Well-developed well-nourished no acute distress. Chest with unlabored respirations, Neuro is alert and oriented, speaks full sentences. Otherwise unchanged from yesterday. Charges/Coding Visit Charges Inpatient E&M: 86051 Subs Hosp L1
[2022-12-24 20:06] VITALS: BP 107/71; PULSE 72; RESP 16; TEMP 36.1; O2SAT 98
[2022-12-24] MEDS: Atorvastatin Calcium 40 MG Tablet PO (23:13)
[2022-12-24] MEDS: Mirtazapine 15 MG Tablet PO (23:13)
[2022-12-25 03:00] VITALS: BP 106/72; PULSE 72; RESP 16; TEMP 36.6; O2SAT 98
[2022-12-25 06:00] VITALS: BMI 20.3
[2022-12-25] MEDS: metroNIDAZOLE 500 MG/100 ML BAG 100 MG IV ×3 (06:27→22:03)
--- NOTE | 2022-12-25 10:07 | PCM.PN.REN ---
Subjective Subjective Following for acute kidney injury on chronic kidney disease. The patient has no new complaints. There is no chest pain, nausea, or increasing edema. There is no shortness of breath at rest. Objective Data Objective Data Vital Signs: Vital Signs Temp Pulse Resp BP Pulse Ox O2 Del Method O2 Flow Rate 97.8 F 72 16 106/72 98 Room Air 3 12/25/22 03:00 12/25/22 03:00 12/25/22 03:00 12/25/22 03:00 12/25/22 03:00 12/25/22 07:47 12/20/22 21:49 Oxygen Flow Rate (L/min) 3 Oxygen Delivery Method Room Air Weight: 68 kg Body Mass Index (BMI) 20.3 Intake & Output: Intake and Output for Last 24 Hours 12/23/22 12/24/22 12/25/22 23:59 23:59 23:59 Intake Total 830 / 830 930 / 1130 500 / 500 Output Total 1900 / 1900 1450 / 1650 1500 / 1500 Balance -1070 / -1070 -520 / -520 -1000 / -1000 Lab / Micro Data Result Diagrams: 12/22/22 07:15 12/24/22 04:25 Micro: Microbiology 12/20/22 14:42 Blood Culture (Wb) - Left Forearm Blood Culture - Preliminary No growth in 48 hours. 12/20/22 08:40 Blood Culture (Wb) - Left Forearm Blood Culture - Preliminary No growth in 48 hours. 12/20/22 16:54 Mucosa - Nasopharyngeal Respiratory Panel (PCR) - Final 12/20/22 12:10 Urine, Clean Catch Legionella Antigen - Final 12/20/22 12:10 Urine, Clean Catch Streptococcus pneumoniae Antigen (M - Final 12/20/22 08:35 Nasal Secretion SARS-CoV-2 & FLU Antigen (Rapid) - Final Physical Exam Narrative Alert and oriented x3, no apparent distress, having difficult time recalling past events S1, S2, RRR Lung sounds clear anteriorly. No wheezes, rhonchi or rales noted. Diminished breath sounds posterior bases Abdomen soft, nontender, positive bowel sounds No pitting edema noted bilateral lower legs or feet Assessment & Plan Assessment/Plan (1) RASHAWN (acute kidney injury): (2) CKD (chronic kidney disease), stage IV: (3) Aspiration pneumonia: (4) Type 2 diabetes mellitus: PLAN: Plan Impression/Plan: The patient is a 62-year-old man with past history of type 2 diabetes mellitus, CAD, heart failure with reduced ejection fraction, stroke, and pulmonary hypertension who was admitted to the hospital on 12/20/2022 with debility and aspiration pneumonia. He is also being treated for exacerbation of heart failure with reduced ejection fraction. Nephrology is following for acute kidney injury on chronic kidney disease stage IV. Acute kidney injury on chronic kidney disease stage IV. Baseline creatinine has been around 2.80 mg/dL. Serum creatinine has been as high as 3.43 mg/dL on 11/17/2022 as well. Serologies were sent because of RASHAWN and proteinuria (urine protein to creatinine ratio was 610 mg/g on 12/21/2022). Thus far, complements, JALEN, and antineutrophil cytoplasmic antibodies are negative. Awaiting anti-GBM antibody. However, I have low suspicion for acute glomerulonephritis or vasculitis as the cause of RASHAWN. Urinalysis on 12/20/2022 did not show significant RBCs. Suspect RASHAWN is mainly due to cardiorenal etiology. Thus far, serum creatinine has been relatively stable between 2.66 mg/dL up to 3.05 mg/dL. We will probably have to accept current elevation in serum creatinine to keep patient compensated from heart failure standpoint. Okay to continue current dose of IV furosemide. Current medications are reviewed and are appropriately dosed for his renal function. Recheck renal function again as outpatient. Heart failure with reduced ejection fraction. The patient is on carvedilol. Unfortunately, because of advanced CKD, the patient is not on RAAS inhibitor or mineralocorticoid receptor antagonist. Okay to continue current IV diuretic with monitoring of renal function as discussed above. Disposition: Okay to discharge from nephrology standpoint. Would discharge patient on 40 mg of Lasix once per day and recheck renal function panel again in 2 to 3 weeks.
--- NOTE | 2022-12-25 11:35 | CASEMGMT ---
Social Work PCU Via [facility] at [facility], the patient can be accepted to [facility] when ready and when precert is attained. [facility] having a hard time verifying insurance, and there is discrepancy of dates: 1.21.61 versus 1.23.61. Noted in record patient's ID shows 1.23.61 and insurance verification shows 1.21.61. Met with patient in room, introducing to self and social work role. Patient awake and sitting in bed. Patient speech slightly garbled, but repeats self upon request with ability of this appeals writer to understand patient. Inquired what patient's date is and patient stated Which one?. Patient explained his date of is 1.21.61 but the attending physician at signed the wrong date of 1.23.61, and therefore photo ID shows the 1.23.61 date. The insurance uses patient's correct date of into the insurance system, so patient reports to use both birthdays. Patient reports was at [facility] in the past for about 6 months, in case [facility] needs to look at old records at [facility]. This appeals writer verified patient's brother as emergency contact. Offered to call brother to update, and patient immediately agreed for brother to be kept up to date. Explored whether patient has any advanced directives and patient denies. Educated to [facility] meaning and that if not in place next of kin would make decisions if needed. Encouraged patient to consider completing directives at some point in the future. Patient noncommittal however, during this conversation. NEXT of KIN per conversation with this appeals writer: Adult son - Ben Anna, lives somewhere in [place] and patient states has not talked to Ben in years. Parent - Inna Anna, is 87 and lives with patient's brother. Sibling - Kyle Anna, lives local and number is [phone] Called patient's brother Kyle ([phone]). Kyle reports has been trying to get updates on patient, and knew from the landlord that patient was sent into the hospital. Apologized for lack of communication thus far. Kyle reports that Kyle and patient's mother have been concerned for patient, and worry about patient at home. Kyle is limited on how much can help the patient due to taking care of their 87 year old mother, as well as Kyle developing some health issues of his own. Kyle reports has been trying to get patient some extra help at home, someone to check in on patient, due to Kyle living 20 miles away and patient not being able to go to [facility] right now. Kyle reports patient has a sample case porter named Gregoria ([phone]) who has been arranging some care. Patient was reportedly at [facility] but not allowed to return right now due to bed bugs in patient's apartment. This is reportedly not the first time the bed bugs have been an issue. Kyle would like to be updated when patient is ready for discharge and this appeals writer agreed family can be updated to discharge. Updated [facility] via [facility] and asked [facility] to start precert when [facility] can verify insurance. [facility] starting precert today. Spoke with [employer] Lead Gregoria Greene who verified that services have been put on hold due to bed bugs, and unable to treat bed bugs until patient is not in the home. Kaelyn reports concern about patient returning home at present. Updated to plan for [facility]. Kaelyn asks to be updated when patient is discharged. Plan: Skilled level of care at [facility] once precert is obtained. Need to notify brother and [facility] home care at time of discharge. -CARMENCITA Gould, CASS
[2022-12-25 12:20] VITALS: BP 114/76; PULSE 75; RESP 16; TEMP 35.9; O2SAT 96
[2022-12-25] MEDS: Furosemide 40 MG/4 ML Vial IV (12:33)
[2022-12-25] MEDS: Heparin Injection (Vial) 5,000 UNIT/ML VIAL 5000 UNIT SC ×2 (12:34→21:59)
[2022-12-25] MEDS: Ferrous Sulfate 325 MG Tablet PO ×2 (12:35→19:01)
[2022-12-25] MEDS: Clopidogrel Bisulfate 75 MG Tablet PO (12:35)
[2022-12-25] MEDS: amLODIPine 10 MG Tablet PO (12:35)
[2022-12-25] MEDS: Isosorbide Mononitrate 30 MG Tablet PO (12:35)
[2022-12-25] MEDS: Carvedilol 25 MG Tablet PO ×2 (12:35→21:59)
[2022-12-25] MEDS: Aspirin E.C. 81 MG Tablet PO (12:36)
[2022-12-25] MEDS: Multivitamins,Therapeutic Tablet 1 TABLET PO (12:36)
--- NOTE | 2022-12-25 17:22 | PCM.PN.HOSP ---
Reason for Visit Reason for Visit: Diagnoses Type 2 diabetes mellitus without complications (12/20/22) Ischemic cardiomyopathy (12/20/22) Other secondary pulmonary hypertension (12/20/22) Dilated cardiomyopathy (12/20/22) Pneumonitis due to inhalation of food and vomit (12/20/22) Acute kidney failure, unspecified (12/20/22) Chronic kidney disease, stage 4 (severe) (12/20/22) Hypoxemia (12/20/22) Syncope and collapse (12/20/22) Follow-up for multiple issues including heart failure, pulmonary hypertension, CKD, dysphagia and low functional status/failure to thrive Objective Data Objective Data Vital Signs: Vital Signs Temp Pulse Resp BP Pulse Ox O2 Del Method O2 Flow Rate 96.7 F L 75 16 114/76 96 Room Air 3 12/25/22 12:20 12/25/22 12:20 12/25/22 12:20 12/25/22 12:20 12/25/22 12:20 12/25/22 14:00 12/20/22 21:49 Oxygen Flow Rate (L/min) 3 Oxygen Delivery Method Room Air Weight: 149 lb 14.629 oz Body Mass Index (BMI) 20.3 Intake & Output: Intake and Output for Last 24 Hours 12/23/22 12/24/22 12/25/22 23:59 23:59 23:59 Intake Total 830 / 830 930 / 1130 750 / 750 Output Total 1900 / 1900 1450 / 1650 2250 / 2250 Balance -1070 / -1070 -520 / -520 -1500 / -1500 Lab / Micro Data Result Diagrams: 12/22/22 07:15 12/24/22 04:25 Labs: Laboratory Results - last 24 hr 12/21/22 04:46: DAISY-1 Antibody Not Reportable, SS-A/Ro IgG Antibody Not Reportable, SS-B/La IgG Antibody Not Reportable, Sm (Meeks) Antibody Not Reportable, COMMUNITY SERVICE AIDE Antibody Not Reportable, Scl-70 Scleroderma Ab Not Reportable, Double Strand DNA Ab Not Reportable, Centromere B Antibody Not Reportable Micro: Microbiology 12/20/22 14:42 Blood Culture (Wb) - Left Forearm Blood Culture - Final No growth in 5 days. 12/20/22 08:40 Blood Culture (Wb) - Left Forearm Blood Culture - Final No growth in 5 days. 12/20/22 16:54 Mucosa - Nasopharyngeal Respiratory Panel (PCR) - Final 12/20/22 12:10 Urine, Clean Catch Legionella Antigen - Final 12/20/22 12:10 Urine, Clean Catch Streptococcus pneumoniae Antigen (M - Final 12/20/22 08:35 Nasal Secretion SARS-CoV-2 & FLU Antigen (Rapid) - Final Physical Exam Narrative Patient shortness of breath is on baseline. Patient is still very weak but working with physical therapist. Can stand bedside without support with PT on side Physical exam General: Alert, Oriented x3, Cooperative HEENT: Atraumatic, PERRLA, EOMI, Normocephalic Oral: Oral mucosa moist. No Gingival or Mucosal Lesions/ Ulcerations Neck: Supple, No JVD, Negative Carotid Bruits Lungs: Air entry diminished in bilateral lung bases. No crepitation/rhonchi, weak cough reflex. Cardiovascular: Regular rate, Regular Rhythm, Normal S1, Normal S2, systolic murmur over LLSB. Abdomen: Bowel Sounds Present, Soft, Non Tender, Non-Distended : No renal angle tenderness. No suprapubic tenderness. Extremities: No edema, Capillary Refill Less than 3 Seconds Skin: Multiple small abrasions due to recurrent frequent fall. Musculoskeletal: Muscle strength 4/5 at right knee and hip joints, weaker than left side. Moderate muscle atrophy of extremities. No Tenderness to Palpation of Joints or Extremities Neurological: Cranial nerves II-XII grossly intact, DTR 2+/4, symmetrical intact to gross sensory touch. Psych/Mental Status: Flat affect Assessment & Plan Assessment/Plan (1) Hypoxia: PLAN: Plan 68-year-old is admitted with generalized weakness and fall at home. He had been weak for 1 to 2 days. Lives alone at home. Fell down twice today. 1. Adult failure to thrive with debility and inability to complete ADLs, low functional status: Patient has weak swallow function, and right-sided weakness and lower speech probably from previous stroke in February 2022. PT and OT and speech therapist evaluating and managing him. Patient had modified barium swallow which shows silent aspiration. Diet was modified accordingly as per speech therapist recommendation. Patient has multiple recurrent and frequent falls at home. depending upon PT and OT final evaluation he might need SNF. Discussed with patient's brother over the phone. 12/23: Continue Rocephin and metronidazole. 12/25: Continue antibiotic. Discharge planning will require SNF. 2. Aspiration with high suspicion of aspiration pneumonia: Chest x-ray individually reviewed and shows bilateral infiltrate left more than right. Bibasilar atelectasis. Patient on IV ceftriaxone and metronidazole 3. 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 Severely dilated RV with global systolic dysfunction, PASP 90 mmHg, severe 4+ TR. Severe pulmonary hypertension. Both right and left atria are severely enlarged. 1-2+ MR. Patient on Plavix, atorvastatin, carvedilol. On IV furosemide. Heart failure core measures including intake and output, fluid restriction less than 1500 mL, daily weight monitoring, kidney and electrolytes monitoring. ? 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 Continue diuretic. I addressed the CODE STATUS with the patient and his brother. His brother said he manage his CODE STATUS himself and does not have advanced directive. 12/24: Evaluated by equipment oiler for severe pulmonary hypertension. It seems mainly due to group 2 cardiac causes. Patient ischemic cardiomyopathy progressed over 3 years from focal wall motion abnormality to global hypokinesis RV dilatation with severe TR leading to vasitis and bilateral pleural effusion. Patient does not want aggressive management but can follow-up with pulmonary clinic for VQ scan, PFT, sleep apnea and work-up for collagen vascular disease.Continue trial of diuresis. 12/25: Diagnosis of pulmonary hypertension and colleges explained to the patient. I emphasized the need to follow-up in pulmonary clinic. 3. Chronic iron deficiency anemia ? Hemoglobin between 10 to 11 g%. ? Continue with his iron replacement 4. Anxiety/depression ? Stable ? Continue with the medications DVT: Heparin Severe chronic protein calorie malnutrition. I called his brother over the phone Wilfrido Tong [phone] and gave overall clinical picture along with chest x-ray, echo and modified barium swallow findings. Based on multiple active issues and very low functional status and independent ADL, his prognosis is worse. 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 Total time of the visit including total time spent in counseling or coordination of care, (more than 50% of the total time, spent in obtaining medical information from nurses and other ancillary care providers,explaining to the patient about labs, imaging, diagnosis and management of active complex medical conditions), , review of labs and imaging is 50 minutes. Clinical Impression(s) from Imaging Studies Brain CT 12/20/22 08:18 IMPRESSION: Chronic involutional changes of the brain. Electronically Signed: Randy Murrell MD at 10:06 EDT , Chest X-Ray 12/20/22 14:05 IMPRESSION: Borderline cardiomegaly. Findings suggestive of CHF with possible atelectasis and/or infiltrate in the left lower lobe. Chest X-Ray 12/21/22 05:55 IMPRESSION: Improvement in the CHF although there has been progressive bibasilar atelectasis and/or infiltrates. Electronically Signed: Randy Murrell MD at 14:07 EDT , Echocardiogram 12/21/22 05:55 Interpretation Summary Moderately severe global left ventricular systolic dysfunction. The left ventricular ejection fraction is 35 %. Severely dilated right ventricle. Severe global right ventricular systolic dysfunction. The left atrium is severely enlarged. The right atrium is severely enlarged. Mild-Moderate (1-2+) mitral valve insufficiency. Severe (4+) tricuspid valve insufficiency. Pulmonary artery systolic pressure is 90 mmHg. Severe pulmonary hypertension. Renal Ultrasound 12/21/22 05:55 IMPRESSION: Normal ultrasound of the kidneys and urinary bladder. Electronically Signed: Randy Murrell MD at 12:38 EDT , Microbiology Past 72 Hours 12/20/22 14:42 Blood Culture (Wb) - Left Forearm Blood Culture - Preliminary No growth in 48 hours. 04/05/23 08:40 Blood Culture (Wb) - Left Forearm Blood Culture - Preliminary No growth in 48 hours. 12/20/22 16:54 Mucosa - Nasopharyngeal Respiratory Panel (PCR) - Final 12/20/22 12:10 Urine, Clean Catch Legionella Antigen - Final 12/20/22 12:10 Urine, Clean Catch Streptococcus pneumoniae Antigen (M - Final 12/20/22 08:35 Nasal Secretion SARS-CoV-2 & FLU Antigen (Rapid) - Final Laboratory Results 12/21/22 04:46: JALEN Screen Negative 12/21/22 04:46: c-ANCA Antibody <1:20, Atypical p-ANCA <1:20, p-ANCA Antibody <1:20, Complement C3 93, Complement C4 17 12/22/22 05:35: POC Glucose 83 12/22/22 07:15: WBC 5.8, RBC 4.12 L, Hgb 10.9 L, Hct 35.6 L, MCV 86.4, MCH 26.5 L, MCHC 30.6 L, RDW Std Deviation 51.0 H, RDW Coeff of Ave 16.1 H, Plt Count 185, MPV 12.0, Immature Gran % (Auto) 0.900, Neut % (Auto) 73.2 H, Lymph % (Auto) 14.4 L, [place] % (Auto) 6.0, Eos % (Auto) 4.8, Baso % (Auto) 0.7, Absolute Neuts (auto) 4.3, Absolute Lymphs (auto) 0.84, Nucleated RBC % 0 12/22/22 07:15: Sodium 137, Potassium 4.0, Chloride 108 H, Carbon Dioxide 22.0, Anion Gap 7, BUN 30 H, Creatinine 2.66 H, Estim Creat Clear Calc 29.97, Est GFR (MDRD) Af Amer 32 L, Est GFR (MDRD) Non-Af 26 L, BUN/Creatinine Ratio 11.3, Glucose 93, Calcium 8.0 L, Total Bilirubin 0.60, AST 19, ALT 13 L, Alkaline Phosphatase 91, Total Protein 5.6 L, Albumin 3.0 L, Globulin 2.6, Albumin/Globulin Ratio 1.2 Charges/Coding Visit Charges Inpatient E&M: 80771 Subs Hosp L2
[2022-12-25 19:09] VITALS: BP 114/77; PULSE 80; RESP 16; TEMP 36.4; O2SAT 96
[2022-12-25 21:52] VITALS: BP 105/74; PULSE 74; RESP 18; TEMP 36.2; O2SAT 98
[2022-12-25 21:54] VITALS: BP 105/74; PULSE 74; RESP 18; TEMP 36.2; O2SAT 98
[2022-12-25] MEDS: Atorvastatin Calcium 40 MG Tablet PO (21:59)
[2022-12-25] MEDS: Mirtazapine 15 MG Tablet PO (21:59)
[2022-12-26] VITALS (10 sets, daily range): BP systolic 90–130; BP diastolic 60–89; PULSE 70–82; RESP 16; TEMP 35.9–36.4; O2SAT 98–100; BMI 20.3
[2022-12-26] MEDS: metroNIDAZOLE 500 MG/100 ML BAG 100 MG IV (05:26)
[2022-12-26 07:02] LABS: Anion Gap 5 (5-15); BUN 53 mg/dL (7-18); BUN/Creat Ratio 15.8 RATIO (10-20); Calcium,Total 8.3 mg/dL (8.5-10.1); Chloride 101 mmol/L (98-107); Creatinine, Serum 3.36 mg/dL (0.70-1.30); EST Glomerular Filtration Rate 20 mL/min (>60); Est Glom Filt Rate - Afr Amer 24 mL/min (>60); Estimated Creatinine Clearance 21.92 ml/min; Glucose 95 mg/dL (74-106); Potassium 4.4 mmol/L (3.5-5.1); Sodium Level 133 mmol/L (136-145)
--- NOTE | 2022-12-26 09:26 | CASEMGMT ---
Updates were sent to [facility] via [employer]. Juliane Holt VP CUSTOMER DEVELOPMENT PUBLIC INTERVIEWER
--- NOTE | 2022-12-26 09:48 | PN.RENAL_ITS ---
Subjective Subjective Following for a RASHAWN on CKD Patient is working with therapy. Denies any complaints. Reports appetite fair. No overnight events. Objective Data Objective Data Vital Signs: Vital Signs Temp Pulse Resp BP Pulse Ox O2 Del Method O2 Flow Rate 97.5 F L 72 16 116/81 H 98 Room Air 3 12/26/22 06:30 12/26/22 06:30 12/26/22 06:30 12/26/22 06:30 12/26/22 06:30 12/26/22 06:30 12/20/22 21:49 Oxygen Flow Rate (L/min) 3 Oxygen Delivery Method Room Air Weight: 68 kg Body Mass Index (BMI) 20.3 Intake & Output: Intake and Output for Last 24 Hours 12/24/22 12/25/22 12/26/22 23:59 23:59 23:59 Intake Total 930 / 1130 850 / 850 100 / 100 Output Total 1450 / 1650 2850 / 2850 550 / 550 Balance -520 / -520 -2000 / -2000 -450 / -450 Lab / Micro Data Result Diagrams: 12/22/22 07:15 12/26/22 05:51 Labs: Laboratory Results - last 24 hr 12/21/22 04:46: DAISY-1 Antibody Not Reportable, SS-A/Ro IgG Antibody Not Reportable, SS-B/La IgG Antibody Not Reportable, Sm (Meeks) Antibody Not Reportable, RECEPTIONIST/TELEPHONE OPERATOR Antibody Not Reportable, Scl-70 Scleroderma Ab Not Reportable, Double Strand DNA Ab Not Reportable, Centromere B Antibody Not Reportable 12/26/22 05:51: Sodium 133 L, Potassium 4.4, Chloride 101, Carbon Dioxide 27.0, Anion Gap 5, BUN 53 H, Creatinine 3.36 H, Estim Creat Clear Calc 21.92, Est GFR (MDRD) Af Amer 24 L, Est GFR (MDRD) Non-Af 20 L, BUN/Creatinine Ratio 15.8, Glucose 95, Calcium 8.3 L Micro: Microbiology 12/20/22 14:42 Blood Culture (Wb) - Left Forearm Blood Culture - Final No growth in 5 days. 12/20/22 08:40 Blood Culture (Wb) - Left Forearm Blood Culture - Final No growth in 5 days. 12/20/22 16:54 Mucosa - Nasopharyngeal Respiratory Panel (PCR) - Final 12/20/22 12:10 Urine, Clean Catch Legionella Antigen - Final 12/20/22 12:10 Urine, Clean Catch Streptococcus pneumoniae Antigen (M - Final 12/20/22 08:35 Nasal Secretion SARS-CoV-2 & FLU Antigen (Rapid) - Final Physical Exam Narrative Alert and oriented x3, no apparent distress S1, S2, RRR Lung sounds clear anteriorly. No wheezes, rhonchi or rales noted. Abdomen soft, nontender, positive bowel sounds No pitting edema noted bilateral lower legs or feet Assessment & Plan Assessment/Plan (1) RASHAWN (acute kidney injury): (2) CKD (chronic kidney disease), stage IV: (3) Aspiration pneumonia: (4) Type 2 diabetes mellitus: PLAN: Plan Impression/Plan: The patient is a 62-year-old man with past history of type 2 diabetes mellitus, CAD, heart failure with reduced ejection fraction, stroke, and pulmonary hypertension who was admitted to the hospital on 12/20/2022 with debility and aspiration pneumonia. He is also being treated for exacerbation of heart failure with reduced ejection fraction. Nephrology is following for acute kidney injury on chronic kidney disease stage IV. Acute kidney injury on chronic kidney disease stage IV. Baseline creatinine has been around 2.80 mg/dL. Serum creatinine has been as high as 3.43 mg/dL on 11/17/2022. Serologies were sent because of RASHAWN and proteinuria (urine protein to creatinine ratio was 610 mg/g on 12/21/2022). Thus far, complements, JALEN, and antineutrophil cytoplasmic antibodies are negative. Renal US did not show any hydronephrosis. Anti-GBM antibody pending today. Low suspicion for acute glomerulonephritis or vasculitis as the cause of RASHAWN. Urinalysis on 12/20/2022 did not show significant RBCs. Suspect RASHAWN is mainly due to cardiorenal etiology. Thus far, serum creatinine has been relatively stable between 2.66 mg/dL up to 3.05 mg/dL. Today SCr 3.36mg/dL. Will change lasix to oral. He received today's dose. No acute indication for any PHOTO PRINTER. We will probably have to accept current elevation in serum creatinine to keep patient compensated from heart failure standpoint. Current medications are reviewed and are appropriately dosed for his renal function. Recheck renal function again as outpatient. Heart failure with reduced ejection fraction. The patient is on carvedilol. Unfortunately, because of advanced CKD, the patient is not on RAAS inhibitor or mineralocorticoid receptor antagonist. Decreased IV lasix 40mg from BID to daily yesterday. Today will change lasix to 40mg oral starting tomorrow. Disposition: Okay to discharge from nephrology standpoint. Would discharge patient on 40 mg of Lasix once per day and recheck renal function panel again in 2 to 3 weeks. We will arrange for hospital follow-up. Discussed with Dr. Krueger.
[2022-12-26] MEDS: Heparin Injection (Vial) 5,000 UNIT/ML VIAL 5000 UNIT SC ×2 (10:11→21:27)
[2022-12-26] MEDS: Multivitamins,Therapeutic Tablet 1 TABLET PO (10:13)
[2022-12-26] MEDS: Ferrous Sulfate 325 MG Tablet PO ×2 (10:13→18:26)
[2022-12-26] MEDS: Clopidogrel Bisulfate 75 MG Tablet PO (10:13)
[2022-12-26] MEDS: Aspirin E.C. 81 MG Tablet PO (10:13)
[2022-12-26] MEDS: Carvedilol 25 MG Tablet PO ×2 (11:54→21:28)
[2022-12-26] MEDS: Isosorbide Mononitrate 30 MG Tablet PO (11:54)
[2022-12-26] MEDS: amLODIPine 10 MG Tablet PO (11:54)
[2022-12-26] MEDS: metroNIDAZOLE 500 MG Tablet PO ×2 (14:20→21:28)
--- NOTE | 2022-12-26 17:28 | PCM.PN.HOSP ---
Reason for Visit Reason for Visit: Diagnoses Type 2 diabetes mellitus without complications (12/20/22) Ischemic cardiomyopathy (12/20/22) Other secondary pulmonary hypertension (12/20/22) Dilated cardiomyopathy (12/20/22) Pneumonitis due to inhalation of food and vomit (12/20/22) Acute kidney failure, unspecified (12/20/22) Chronic kidney disease, stage 4 (severe) (12/20/22) Hypoxemia (12/20/22) Syncope and collapse (12/20/22) Objective Data Objective Data Vital Signs: Vital Signs Temp Pulse Resp BP Pulse Ox O2 Del Method O2 Flow Rate 96.8 F L 75 16 119/75 100 Room Air 3 12/26/22 10:00 12/26/22 11:59 12/26/22 10:00 12/26/22 11:59 12/26/22 10:00 12/26/22 10:00 12/20/22 21:49 Oxygen Flow Rate (L/min) 3 Oxygen Delivery Method Room Air Weight: 149 lb 14.629 oz Body Mass Index (BMI) 20.3 Intake & Output: Intake and Output for Last 24 Hours 12/24/22 12/25/22 12/26/22 23:59 23:59 23:59 Intake Total 930 / 1130 850 / 850 150 / 150 Output Total 1450 / 1650 2850 / 2850 550 / 550 Balance -520 / -520 -2000 / -2000 -400 / -400 Lab / Micro Data Result Diagrams: 12/22/22 07:15 12/26/22 05:51 Labs: Laboratory Results - last 24 hr 12/26/22 05:51: Sodium 133 L, Potassium 4.4, Chloride 101, Carbon Dioxide 27.0, Anion Gap 5, BUN 53 H, Creatinine 3.36 H, Estim Creat Clear Calc 21.92, Est GFR (MDRD) Af Amer 24 L, Est GFR (MDRD) Non-Af 20 L, BUN/Creatinine Ratio 15.8, Glucose 95, Calcium 8.3 L Micro: Microbiology 12/20/22 14:42 Blood Culture (Wb) - Left Forearm Blood Culture - Final No growth in 5 days. 12/20/22 08:40 Blood Culture (Wb) - Left Forearm Blood Culture - Final No growth in 5 days. 12/20/22 16:54 Mucosa - Nasopharyngeal Respiratory Panel (PCR) - Final 12/20/22 12:10 Urine, Clean Catch Legionella Antigen - Final 12/20/22 12:10 Urine, Clean Catch Streptococcus pneumoniae Antigen (M - Final 12/20/22 08:35 Nasal Secretion SARS-CoV-2 & FLU Antigen (Rapid) - Final Physical Exam Narrative Patient shortness of breath is on baseline. Patient is still very weak but working with physical therapist. No acute issues per Physical exam General: Alert, Oriented x3, Cooperative HEENT: Atraumatic, PERRLA, EOMI, Normocephalic Oral: Oral mucosa moist. No Gingival or Mucosal Lesions/ Ulcerations Neck: Supple, No JVD, Negative Carotid Bruits Lungs: Air entry diminished in bilateral lung bases. No crepitation/rhonchi, weak cough reflex. Cardiovascular: Regular rate, Regular Rhythm, Normal S1, Normal S2, loud P2. Systolic murmur over LLSB. Abdomen: Bowel Sounds Present, Soft, Non Tender, Non-Distended : No renal angle tenderness. No suprapubic tenderness. Extremities: No edema, Capillary Refill Less than 3 Seconds Skin: Multiple small abrasions due to recurrent frequent fall, healing. Musculoskeletal: Muscle strength 4/5 at right knee and hip joints, weaker than left side. Moderate muscle atrophy of extremities. No Tenderness to Palpation of Joints or Extremities Neurological: Cranial nerves II-XII grossly intact, DTR 2+/4, symmetrical intact to gross sensory touch. Psych/Mental Status: Flat affect Assessment & Plan Assessment/Plan (1) Hypoxia: PLAN: Plan 68-year-old is admitted with generalized weakness and fall at home. He had been weak for 1 to 2 days. Lives alone at home. Fell down twice today. 1. Adult failure to thrive with debility and inability to complete ADLs, low functional status: Patient has weak swallow function, and right-sided weakness and lower speech probably from previous stroke in February 2022. PT and OT and speech therapist evaluating and managing him. Patient had modified barium swallow which shows silent aspiration. Diet was modified accordingly as per speech therapist recommendation. Patient has multiple recurrent and frequent falls at home. depending upon PT and OT final evaluation he might need SNF. Discussed with patient's brother over the phone. 12/23: Continue Rocephin and metronidazole. 12/25: Continue antibiotic. Discharge planning will require SNF. 12/26: Blood culture negative for 5 days. 2. Aspiration with high suspicion of aspiration pneumonia: Chest x-ray individually reviewed and shows bilateral infiltrate left more than right. Bibasilar atelectasis. Patient on IV ceftriaxone and metronidazole 3. Acute on chronic biventricular heart failure with severe pulmonary hypertension, valvular heart disease, CAD status post stent/history of CVA, hypertension and dyslipidemia: 2D echo was done Media Production Operator: With biventricular heart failure, EF 35% with moderate global severe LV systolic dysfunction. Severely dilated RV with global systolic dysfunction, PASP 90 mmHg, severe 4+ TR. Severe pulmonary hypertension. Both right and left atria are severely enlarged. 1-2+ MR. Patient on Plavix, atorvastatin, carvedilol. On IV furosemide. Heart failure core measures including intake and output, fluid restriction less than 1500 mL, daily weight monitoring, kidney and electrolytes monitoring. ? 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 Continue diuretic. I addressed the CODE STATUS with the patient and his brother. His brother said he manage his CODE STATUS himself and does not have advanced directive. 12/24: Evaluated by automation sales manager for severe pulmonary hypertension. It seems mainly due to group 2 cardiac causes. Patient ischemic cardiomyopathy progressed over 3 years from focal wall motion abnormality to global hypokinesis RV dilatation with severe TR leading to vasitis and bilateral pleural effusion. Patient does not want aggressive management but can follow-up with pulmonary clinic for VQ scan, PFT, sleep apnea and work-up for collagen vascular disease.Continue trial of diuresis. 12/25: Diagnosis of pulmonary hypertension and colleges explained to the patient. I emphasized the need to follow-up in pulmonary clinic. 12/26: Continue incentive spirometry and Pep. 3. Chronic iron deficiency anemia ? Hemoglobin between 10 to 11 g%. ? Continue with his iron replacement 12/26: Hemoglobin on baseline. 4. Anxiety/depression ? Stable ? Continue with the medications DVT: Heparin Severe chronic protein calorie malnutrition. I called his brother over the phone Wilfrido Tong [phone] and gave overall clinical picture along with chest x-ray, echo and modified barium swallow findings. Based on multiple active issues and very low functional status and independent ADL, his prognosis is worse. 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 Total time of the visit including total time spent in counseling or coordination of care, (more than 50% of the total time, spent in obtaining medical information from nurses and other ancillary care providers,explaining to the patient about labs, imaging, diagnosis and management of active complex medical conditions), , review of labs and imaging is 50 minutes. Clinical Impression(s) from Imaging Studies Brain CT 12/20/22 08:18 IMPRESSION: Chronic involutional changes of the brain. Electronically Signed: Randy Murrell MD at 10:06 EDT , Chest X-Ray 12/20/22 14:05 IMPRESSION: Borderline cardiomegaly. Findings suggestive of CHF with possible atelectasis and/or infiltrate in the left lower lobe. Chest X-Ray 12/21/22 05:55 IMPRESSION: Improvement in the CHF although there has been progressive bibasilar atelectasis and/or infiltrates. Electronically Signed: Randy Murrell MD at 14:07 EDT , Echocardiogram 12/21/22 05:55 Interpretation Summary Moderately severe global left ventricular systolic dysfunction. The left ventricular ejection fraction is 35 %. Severely dilated right ventricle. Severe global right ventricular systolic dysfunction. The left atrium is severely enlarged. The right atrium is severely enlarged. Mild-Moderate (1-2+) mitral valve insufficiency. Severe (4+) tricuspid valve insufficiency. Pulmonary artery systolic pressure is 90 mmHg. Severe pulmonary hypertension. Renal Ultrasound 12/21/22 05:55 IMPRESSION: Normal ultrasound of the kidneys and urinary bladder. Electronically Signed: Randy Murrell MD at 12:38 EDT , Microbiology Past 72 Hours 12/20/22 14:42 Blood Culture (Wb) - Left Forearm Blood Culture - Preliminary No growth in 48 hours. 12/20/22 08:40 Blood Culture (Wb) - Left Forearm Blood Culture - Preliminary No growth in 48 hours. 12/20/22 16:54 Mucosa - Nasopharyngeal Respiratory Panel (PCR) - Final 12/20/22 12:10 Urine, Clean Catch Legionella Antigen - Final 12/20/22 12:10 Urine, Clean Catch Streptococcus pneumoniae Antigen (M - Final 12/20/22 08:35 Nasal Secretion SARS-CoV-2 & FLU Antigen (Rapid) - Final Laboratory Results 12/21/22 04:46: JALEN Screen Negative 12/21/22 04:46: c-ANCA Antibody <1:20, Atypical p-ANCA <1:20, p-ANCA Antibody <1:20, Complement C3 93, Complement C4 17 12/22/22 05:35: POC Glucose 83 12/22/22 07:15: WBC 5.8, RBC 4.12 L, Hgb 10.9 L, Hct 35.6 L, MCV 86.4, MCH 26.5 L, MCHC 30.6 L, RDW Std Deviation 51.0 H, RDW Coeff of Ave 16.1 H, Plt Count 185, MPV 12.0, Immature Gran % (Auto) 0.900, Neut % (Auto) 73.2 H, Lymph % (Auto) 14.4 L, [place] % (Auto) 6.0, Eos % (Auto) 4.8, Baso % (Auto) 0.7, Absolute Neuts (auto) 4.3, Absolute Lymphs (auto) 0.84, Nucleated RBC % 0 12/22/22 07:15: Sodium 137, Potassium 4.0, Chloride 108 H, Carbon Dioxide 22.0, Anion Gap 7, BUN 30 H, Creatinine 2.66 H, Estim Creat Clear Calc 29.97, Est GFR (MDRD) Af Amer 32 L, Est GFR (MDRD) Non-Af 26 L, BUN/Creatinine Ratio 11.3, Glucose 93, Calcium 8.0 L, Total Bilirubin 0.60, AST 19, ALT 13 L, Alkaline Phosphatase 91, Total Protein 5.6 L, Albumin 3.0 L, Globulin 2.6, Albumin/Globulin Ratio 1.2 Charges/Coding Visit Charges Inpatient E&M: 42596 Subs Hosp L2
[2022-12-26] MEDS: Atorvastatin Calcium 40 MG Tablet PO (21:28)
[2022-12-26] MEDS: Mirtazapine 15 MG Tablet PO (21:28)
[2022-12-27 03:15] VITALS: BP 125/81; PULSE 77; RESP 16; TEMP 36.4; O2SAT 97
[2022-12-27 03:16] VITALS: BP 125/81; PULSE 77; RESP 16; TEMP 36.4; O2SAT 97
[2022-12-27 06:00] VITALS: BMI 20.3
[2022-12-27] MEDS: metroNIDAZOLE 500 MG Tablet PO (06:03)
[2022-12-27 06:44] LABS: Anion Gap 7 (5-15); BUN 61 mg/dL (7-18); BUN/Creat Ratio 19.7 RATIO (10-20); Calcium,Total 8.1 mg/dL (8.5-10.1); Chloride 100 mmol/L (98-107); EST Glomerular Filtration Rate 22 mL/min (>60); Est Glom Filt Rate - Afr Amer 26 mL/min (>60); Estimated Creatinine Clearance 23.76 ml/min; Glucose 94 mg/dL (74-106); Potassium 4.3 mmol/L (3.5-5.1); Sodium Level 133 mmol/L (136-145)
--- NOTE | 2022-12-27 07:49 | CASEMGMT ---
KAREN received notification that patient was approved for [facility]. KAREN will notify physician. Juliane RICO
[2022-12-27 09:05] VITALS: BP 113/67; PULSE 75; RESP 18; TEMP 36.6; O2SAT 95
--- NOTE | 2022-12-27 09:23 | TREXTCAR_ITS ---
Diet Diet Order/Speech Therapy: 12/22/22 15:04 Diet: Carbohydrate Controlled Food consistency:: Pureed Liquid Consistency:: [place]/Mildly Thick Type of Dietary Supplement:: Glucerna@B; Magic CupL+D Is pt able to select menu?: No Diet Comments: HARD & MULTIPLE SWALLOWS w/ all bites, 1:1 Direct supervision Routine Orders/Code Status Suppository Type: Dulcolax 10mg Suppository Frequency: Daily PRN Code Status: DNRCC-A (No intubation) Wound(s) coccyx: Wound Type: Pressure Injury mid to left chest: Wound Type: Abrasion Therapies Weight Bearing: Weight bearing as tolerated Extremity Affected:: Bilateral Lower Physical Therapy: Eval and Treat Occupational Therapy: Eval and Treat Speech Therapy: Eval and Treat Problem/Diagnosis (1) Hypoxia: Status: Acute Code(s): R09.02 - Hypoxemia Plan 68-year-old is admitted with generalized weakness and fall at home. He had been weak for 1 to 2 days. Lives alone at home. Fell down twice today. 1. Adult failure to thrive with debility and inability to complete ADLs, low functional status: Patient has weak swallow function, and right-sided weakness and lower speech probably from previous stroke in February 2022. PT and OT and speech therapist evaluating and managing him. Patient had modified barium swallow which shows silent aspiration. Diet was modified accordingly as per speech therapist recommendation. Patient has multiple recurrent and frequent falls at home. depending upon PT and OT final evaluation he might need SNF. Discussed with patient's brother over the phone. 12/23: Continue Rocephin and metronidazole. 12/25: Continue antibiotic. Discharge planning will require SNF. 12/26: Blood culture negative for 5 days. 2. Aspiration with high suspicion of aspiration pneumonia: Chest x-ray individually reviewed and shows bilateral infiltrate left more than right. Bibasilar atelectasis. Patient on IV ceftriaxone and metronidazole 3. Acute on chronic biventricular heart failure with severe pulmonary hypertension, valvular heart disease, CAD status post stent/history of CVA, hypertension and dyslipidemia: 2D echo was done Boring Machine Set Up Operator: With biventricular heart failure, EF 35% with moderate global severe LV systolic dysfunction. Severely dilated RV with global systolic dysfunction, PASP 90 mmHg, severe 4+ TR. Severe pulmonary hypertension. Both right and left atria are severely enlarged. 1-2+ MR. Patient on Plavix, atorvastatin, carvedilol. On IV furosemide. Heart failure core measures including intake and output, fluid restriction less than 1500 mL, daily weight monitoring, kidney and electrolytes monitoring. ? 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 Continue diuretic. I addressed the CODE STATUS with the patient and his brother. His brother said he manage his CODE STATUS himself and does not have advanced directive. 12/24: Evaluated by tugboat mate for severe pulmonary hypertension. It seems mainly due to group 2 cardiac causes. Patient ischemic cardiomyopathy progressed over 3 years from focal wall motion abnormality to global hypokinesis RV dilatation with severe TR leading to vasitis and bilateral pleural effusion. Patient does not want aggressive management but can follow-up with pulmonary clinic for VQ scan, PFT, sleep apnea and work-up for collagen vascular disease.Continue trial of diuresis. 12/25: Diagnosis of pulmonary hypertension and colleges explained to the patient. I emphasized the need to follow-up in pulmonary clinic. 12/26: Continue incentive spirometry and Pep. 3. Chronic iron deficiency anemia ? Hemoglobin between 10 to 11 g%. ? Continue with his iron replacement 12/26: Hemoglobin on baseline. 4. Anxiety/depression ? Stable ? Continue with the medications DVT: Heparin Severe chronic protein calorie malnutrition. I called his brother over the phone Wilfrido Tong [phone] and gave overall clinical picture along with chest x-ray, echo and modified barium swallow findings. Based on multiple active issues and very low functional status and independent ADL, his prognosis is worse. 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 Total time of the visit including total time spent in counseling or coordination of care, (more than 50% of the total time, spent in obtaining medical information from nurses and other ancillary care providers,explaining to the patient about labs, imaging, diagnosis and management of active complex medical conditions), , review of labs and imaging is 50 minutes. Clinical Impression(s) from Imaging Studies Brain CT 12/20/22 08:18 IMPRESSION: Chronic involutional changes of the brain. Electronically Signed: Randy Murrell MD at 10:06 EDT , Chest X-Ray 12/20/22 14:05 IMPRESSION: Borderline cardiomegaly. Findings suggestive of CHF with possible atelectasis and/or infiltrate in the left lower lobe. Chest X-Ray 12/21/22 05:55 IMPRESSION: Improvement in the CHF although there has been progressive bibasilar atelectasis and/or infiltrates. Electronically Signed: Randy Murrell MD at 14:07 EDT , Echocardiogram 12/21/22 05:55 Interpretation Summary Moderately severe global left ventricular systolic dysfunction. The left ventricular ejection fraction is 35 %. Severely dilated right ventricle. Severe global right ventricular systolic dysfunction. The left atrium is severely enlarged. The right atrium is severely enlarged. Mild-Moderate (1-2+) mitral valve insufficiency. Severe (4+) tricuspid valve insufficiency. Pulmonary artery systolic pressure is 90 mmHg. Severe pulmonary hypertension. Renal Ultrasound 12/21/22 05:55 IMPRESSION: Normal ultrasound of the kidneys and urinary bladder. Electronically Signed: Randy Murrell MD at 12:38 EDT , Microbiology Past 72 Hours 12/20/22 14:42 Blood Culture (Wb) - Left Forearm Blood Culture - Preliminary No growth in 48 hours. 12/20/22 08:40 Blood Culture (Wb) - Left Forearm Blood Culture - Preliminary No growth in 48 hours. 12/20/22 16:54 Mucosa - Nasopharyngeal Respiratory Panel (PCR) - Final 12/20/22 12:10 Urine, Clean Catch Legionella Antigen - Final 12/20/22 12:10 Urine, Clean Catch Streptococcus pneumoniae Antigen (M - Final 12/20/22 08:35 Nasal Secretion SARS-CoV-2 & FLU Antigen (Rapid) - Final Laboratory Results 12/21/22 04:46: JALEN Screen Negative 12/21/22 04:46: c-ANCA Antibody <1:20, Atypical p-ANCA <1:20, p-ANCA Antibody <1:20, Complement C3 93, Complement C4 17 12/22/22 05:35: POC Glucose 83 12/22/22 07:15: WBC 5.8, RBC 4.12 L, Hgb 10.9 L, Hct 35.6 L, MCV 86.4, MCH 26.5 L, MCHC 30.6 L, RDW Std Deviation 51.0 H, RDW Coeff of Ave 16.1 H, Plt Count 185, MPV 12.0, Immature Gran % (Auto) 0.900, Neut % (Auto) 73.2 H, Lymph % (Auto) 14.4 L, [place] % (Auto) 6.0, Eos % (Auto) 4.8, Baso % (Auto) 0.7, Absolute Neuts (auto) 4.3, Absolute Lymphs (auto) 0.84, Nucleated RBC % 0 12/22/22 07:15: Sodium 137, Potassium 4.0, Chloride 108 H, Carbon Dioxide 22.0, Anion Gap 7, BUN 30 H, Creatinine 2.66 H, Estim Creat Clear Calc 29.97, Est GFR (MDRD) Af Amer 32 L, Est GFR (MDRD) Non-Af 26 L, BUN/Creatinine Ratio 11.3, Glucose 93, Calcium 8.0 L, Total Bilirubin 0.60, AST 19, ALT 13 L, Alkaline Phosphatase 91, Total Protein 5.6 L, Albumin 3.0 L, Globulin 2.6, Albumin/Globulin Ratio 1.2 Allergies/Procedures Done in Hospital Allergies ampicillin Allergy (Verified 06/05/22 14:32) Swelling fish derived [seafood - derived] Allergy (Verified 08/25/22 13:38) Swelling ibuprofen [From Motrin] Allergy (Verified 06/05/22 14:32) Swelling shellfish derived [seafood - shellfish] Allergy (Verified 08/25/22 13:38) Swelling Type of Care/Length of Stay Estimated LOS: Convalescent Care Less Than 30 days Type of Care Needed: Skilled Rehab Potential: Fair Prognosis: Fair Additional Orders/Day of Discharge Day of Discharge: 12/27/22 Dietary and Speech Recommendations Dietitian Recommendations/Changes: continue CHO controlled diet as tolerated- texture/consistency per MOTION PICTURE EQUIPMENT MACHINIST; Will add Glucerna w/ breakfast and magic cup BID for additional protein/calories if consumed. Discharge Plan Admission Admit Date/Time: 12/20/22 14:40 Primary Reason for Your Visit: Acute on chronic biventricular heart failure, severe pulmonary HTN, CAD,CV Attending Provider: Jarad Krueger Primary Care Provider: Rosario Arroyo Consulting Providers: Tiara Pritchard ; Yara Romero ; Jeremy Toney ; Delano Miles ; Maciel Ramirez ; Sammy Santiago ; Donald Ortiz ; Lucila Bonilla PELOTA MAKER Discharge Orders/Prescriptions Prescriptions: New sennosides-docusate sodium [Stool Softener-Stimulant Laxat] 8.6-50 mg Tablet 2 tab PO BID PRN PRN (Reason: Constipation) Qty: 0 0RF furosemide 40 mg Tablet 40 mg PO DAILY Qty: 0 0RF aspirin 81 mg Tablet,Delayed Release (Dr/Ec) 81 mg PO DAILY@0800 Qty: 0 0RF multivitamin Tablet 1 tab PO DAILYCM Qty: 0 0RF albuterol sulfate 2.5 mg /3 mL (0.083 %) Solution For Nebulization 2.5 mg inhalation Q2H PRN PRN (Reason: Dyspnea, wheezing) Qty: 0 0RF Mucinex DM 30-600 mg tablet extended release 12 hr 1 tab PO Q12H Qty: 14 0RF Continued acetaminophen 325 mg tablet 650 mg PO Q4H PRN (Reason: Pain) amlodipine 10 mg tablet 10 mg PO DAILY mirtazapine 15 mg tablet 15 mg PO QHS cholecalciferol (vitamin D3) 1,250 mcg (50,000 unit) capsule 1,250 mcg PO QWEEK nitroglycerin 0.4 mg Tablet, Sublingual 0.4 mg sublingual Q5M PRN (Reason: Chest Pain) Qty: 0 0RF ondansetron 4 mg tablet,disintegrating 4 mg PO Q8H PRN PRN (Reason: Nausea) Qty: 10 0RF atorvastatin 40 mg tablet 40 mg PO QHS carvedilol 25 mg tablet 25 mg PO BID isosorbide mononitrate 30 mg tablet extended release 24 hr 30 mg PO DAILY clopidogrel 75 mg tablet 75 mg PO DAILY Changed ferrous sulfate [FeroSul] 325 mg (65 mg iron) tablet 325 mg PO QODAY Qty: 0 0RF Discontinued magnesium hydroxide [Milk of Magnesia] 400 mg/5 mL suspension 30 ml PO DAILY PRN (Reason: Constipation) tramadol 50 mg tablet 50 mg PO Q6H PRN (Reason: Pain) Label Comments: is out of this at home Referrals / Follow Up: Rosario Arroyo DO [Primary Care Provider] - Reny Melton MD [Med Staff - Active Staff] - Within 1 Month (For biventricular heart failure) Yara Romero MD [Med Staff - Consulting] - Within 2 Weeks (For CKD stage IV.) Sammy Santiago MD [Med Staff - Active Staff] - Within 2 Weeks (For respiratory failure, hypertension.) Disposition Disposition (needs filled in before D/C Order can be placed): Group Home Facility
--- NOTE | 2022-12-27 09:45 | DS.PCM_ITS ---
Providers Date of Admission: 12/20/22 Date of Discharge: 12/27/22 Primary Care Physician: Dr. Rosario Arroyo, DO Consultations 12/20/22 18:17 Consult: Nephrology Routine Consulting Provider: Yara Romero Reason for Consult: Worsening renal disease, appears stage IV, suspect not been followed. EMERGENT Consult: No MD Notified: Yes Date Notified: 12/20/22 Time Notified: 18:17 Method of Notification: Answering Service 12/23/22 10:13 Consult: Strike On Machine Operator / Pulmonary Medicine Routine Consulting Provider: Pulmonary Medicine [facility] Reason for Consult: Pulm HTN, Biventricular failure EMERGENT Consult: No Notified: Yes Date Notified: 12/23/22 Time Notified: 10:13 Method of Notification: Text Reason For Visit: ? CHF VS PNA, HYPOXIA Diagnosis Discharge Diagnosis (1) Hypoxia: Status: Acute Code(s): R09.02 - Hypoxemia Plan 68-year-old is admitted with generalized weakness and fall at home. He had been weak for 1 to 2 days. Lives alone at home. Fell down twice today. 1. Adult failure to thrive with debility and inability to complete ADLs, low functional status: Patient has weak swallow function, and right-sided weakness and lower speech probably from previous stroke in February 2022. PT and OT and speech therapist evaluating and managing him. Patient had modified barium swallow which shows silent aspiration. Diet was modified accordingly as per speech therapist recommendation. Patient has multiple recurrent and frequent f alls at home. depending upon PT and OT final evaluation he might need SNF. Discussed with patient's brother over the phone. 12/23: Continue Rocephin and metronidazole. 12/25: Continue antibiotic. Discharge planning will require SNF. 12/26: Blood culture negative for 5 days. 2. Aspiration with high suspicion of aspiration pneumonia: Chest x-ray individually reviewed and shows bilateral infiltrate left more than right. Bibasilar atelectasis. Patient on IV ceftriaxone and metronidazole 12/27: Patient completed antibiotics ceftriaxone metronidazole total 7 days. 3. Acute on chronic biventricular heart failure with severe pulmonary hypertension, valvular heart disease, CAD status post stent/history of CVA, hypertension and dyslipidemia: 2D echo was done Concession Manager: With biventricular heart failure, EF 35% with moderate global severe LV systolic dysfunction. Severely dilated RV with global systolic dysfunction, PASP 90 mmHg, severe 4+ TR. Severe pulmonary hypertension. Both right and left atria are severely enlarged. 1-2+ MR. Patient on Plavix, atorvastatin, carvedilol. On IV furosemide. Heart failure core measures including intake and output, fluid restriction less than 1500 mL, daily weight monitoring, kidney and electrolytes monitoring. ? 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 Continue diuretic. I addressed the CODE STATUS with the patient and his brother. His brother said he manage his CODE ST ATUS himself and does not have advanced directive. 12/24: Evaluated by team driver for severe pulmonary hypertension. It seems mainly due to group 2 cardiac causes. Patient ischemic cardiomyopathy p rogressed over 3 years from focal wall motion abnormality to global hypokinesis RV dilatation with severe TR leading to vasitis and bilateral pleural effusion. Patient does not want aggressive management but can follow-up with pulmonary clinic for VQ scan, PFT, sleep apnea and work-up for collagen vascular disease.Continue trial of diuresis. 12/25: Diagnosis of pulmonary hypertension and colleges explained to the patient. I emphasized the need to follow-up in pulmonary clinic. 12/26: Continue incentive spirometry and Pep. 12/27: Follow-up with team driver and foreign language stenographer as mentioned in discharge instructions. 3. Chronic iron deficiency anemia ? Hemoglobin between 10 to 11 g%. ? Continue with his iron replacement 12/26: Hemoglobin on baseline. 12/27: Prescription for ferrous sulfate given. 4. RASHAWN on CKD stage IV: Most likely due to cardiorenal disease, diabetic nephropathy complicated with pulmonary hypertension. He has baseline creatinine has been around 2.8. Serum creatinine highest was 3.43 on 11/17/2022. Urine protein creatinine ratio was 610 on. Complements, JALEN and antineutrophil cytoplasmic antibodies negative. Renal ultrasound did not show hydronephrosis. Anti-GBM pending. Low suspicion for AGBM antibodies as per cement mason helper. RASHAWN suspected to be from cardiorenal disease. No indication for SEAMING MACHINE OPERATOR and patient does not want dialysis. 12/27: Discussed with the cement mason helper. I agree with discharge on furosemide 40 mg daily. 5.. Anxiety/depression ? Stable ? Continue with the medications 6. Chronic severe malnutrition: Patient has moderate atrophy of lower extremities including quadriceps, gastrocnemius and flexor component and upper extremities biceps and triceps. He also has muscle atrophy of craniofacial and neck muscles. Loss of subcutaneous fat. During hospital course patient unsteady on feet, barely able to stand without support for long time and not able to walk independently because of weakness and fatigue. PT and OT on board. Patient needs nutritional supplements along with full diet and follow-up with environmental technician in nursing DVT: Heparin Severe chronic protein calorie malnutrition. Discharge medication reconciliation done. Discharge follow-up instructions completed. Discharge process discussed with the patient and all questions were answered to patient's satisfaction. Discussed with the cement mason helper. Total time spent, exact 35 minutes on discharge meds reconciliation, examination, coordination of care with nurses and ancillary staff, review of imaging and blood test and discussion with the patient on follow-up instructions. Clinical Impression(s) from Imaging Studies Brain CT 12/20/22 08:18 IMPRESSION: Chronic involutional changes of the brain. Electronically Signed: Randy Murrell MD at 10:06 EDT , Chest X-Ray 12/20/22 14:05 IMPRESSION: Borderline cardiomegaly. Findings suggestive of CHF with possible atelectasis and/or infiltrate in the left lower lobe. Chest X-Ray 12/21/22 05:55 IMPRESSION: Improvement in the CHF although there has been progressive bibasilar atelectasis and/or infiltrates. Electronically Signed: Randy Murrell MD at 14:07 EDT , Echocardiogram 12/21/22 05:55 Interpretation Summary Moderately severe global left ventricular systolic dysfunction. The left ventricular ejection fraction is 35 %. Severely dilated right ventricle. Severe global right ventricular systolic dysfunction. The left atrium is severely enlarged. The right atrium is severely enlarged. Mild-Moderate (1-2+) mitral valve insufficiency. Severe (4+) tricuspid valve insufficiency. Pulmonary artery systolic pressure is 90 mmHg. Severe pulmonary hypertension. Renal Ultrasound 12/21/22 05:55 IMPRESSION: Normal ultrasound of the kidneys and urinary bladder. Electronically Signed: Randy Murrell MD at 12:38 EDT , Microbiology Past 72 Hours 12/20/22 14:42 Blood Culture (Wb) - Left Forearm Blood Culture - Preliminary No growth in 48 hours. 12/20/22 08:40 Blood Culture (Wb) - Left Forearm Blood Culture - Preliminary No growth in 48 hours. 12/20/22 16:54 Mucosa - Nasopharyngeal Respiratory Panel (PCR) - Final 12/20/22 12:10 Urine, Clean Catch Legionella Antigen - Final 12/20/22 12:10 Urine, Clean Catch Streptococcus pneumoniae Antigen (M - Final 12/20/22 08:35 Nasal Secretion SARS-CoV-2 & FLU Antigen (Rapid) - Final Laboratory Results 12/21/22 04:46: JALEN Screen Negative 12/21/22 04:46: c-ANCA Antibody <1:20, Atypical p-ANCA <1:20, p-ANCA Antibody <1:20, Complement C3 93, Complement C4 17 12/22/22 05:35: POC Glucose 83 12/22/22 07:15: WBC 5.8, RBC 4.12 L, Hgb 10.9 L, Hct 35.6 L, MCV 86.4, MCH 26.5 L, MCHC 30.6 L, RDW Std Deviation 51.0 H, RDW Coeff of Ave 16.1 H, Plt Count 185, MPV 12.0, Immature Gran % (Auto) 0.900, Neut % (Auto) 73.2 H, Lymph % (Auto) 14.4 L, [place] % (Auto) 6.0, Eos % (Auto) 4.8, Baso % (Auto) 0.7, Absolute Neuts (auto) 4.3, Absolute Lymphs (auto) 0.84, Nucleated RBC % 0 12/22/22 07:15: Sodium 137, Potassium 4.0, Chloride 108 H, Carbon Dioxide 22.0, Anion Gap 7, BUN 30 H, Creatinine 2.66 H, Estim Creat Clear Calc 29.97, Est GFR (MDRD) Af Amer 32 L, Est GFR (MDRD) Non-Af 26 L, BUN/Creatinine Ratio 11.3, Glucose 93, Calcium 8.0 L, Total Bilirubin 0.60, AST 19, ALT 13 L, Alkaline Phosphatase 91, Total Protein 5.6 L, Albumin 3.0 L, Globulin 2.6, Albumin/Globulin Ratio 1.2 Medications at Discharge Home Medications nitroglycerin 0.4 mg sublingual tablet 0.4 mg sublingual Q5M PRN Chest Pain #0 tabs 03/07/22 acetaminophen 325 mg tablet 650 mg PO Q4H PRN Pain 06/05/22 amlodipine 10 mg tablet 10 mg PO DAILY heart 06/05/22 cholecalciferol (vitamin D3) 1,250 mcg (50,000 unit) capsule 1,250 mcg PO QWEEK supplement 06/05/22 mirtazapine 15 mg tablet 15 mg PO QHS sleep 06/05/22 ondansetron 4 mg disintegrating tablet 4 mg PO Q8H PRN PRN Nausea #10 tabs 11/17/22 atorvastatin 40 mg tablet 40 mg PO QHS cholesterol 12/20/22 carvedilol 25 mg tablet 25 mg PO BID heart 12/20/22 clopidogrel 75 mg tablet 75 mg PO DAILY blood thinner 12/20/22 isosorbide mononitrate 30 mg tablet,extended release 24 hr 30 mg PO DAILY heart 12/20/22 albuterol sulfate 2.5 mg/3 mL (0.083 %) solution for nebulization 2.5 mg (3 mL) inhalation Q2H PRN PRN Dyspnea, wheezing #0 mL 12/27/22 aspirin 81 mg tablet,delayed release 81 mg PO DAILY@0800 #0 tabs 12/27/22 dextromethorphan-guaifenesin 30 mg-600 mg tablet extended [id number] hr (Mucinex DM) 1 tab PO Q12H #14 tabs 12/27/22 ferrous sulfate 325 mg (65 mg iron) tablet (FeroSul) 325 mg PO QODAY supplement #0 tabs 12/27/22 furosemide 40 mg tablet 40 mg PO DAILY #0 tabs 12/27/22 multivitamin 1 tab PO DAILYCM #0 tabs 12/27/22 sennosides 8.6 mg-docusate sodium 50 mg tablet (Stool Softener-Stimulant Laxative) 2 tab PO BID PRN PRN Constipation #0 tabs 12/27/22 Physical Exam Narrative Patient shortness of breath is on baseline. Patient is still very weak but working with physical therapist. No acute issues per Physical exam General: Alert, Oriented x3, Cooperative, chronic severe malnutrition. HEENT: Atraumatic, PERRLA, EOMI, Normocephalic Oral: Oral mucosa moist. No Gingival or Mucosal Lesions/ Ulcerations Neck: Supple, No JVD, Negative Carotid Bruits Lungs: Air entry diminished in bilateral lung bases. No crepitation/rhonchi, weak cough reflex. Cardiovascular: Regular rate, Regular Rhythm, Normal S1, Normal S2, loud P2. Systolic murmur over LLSB. Abdomen: Bowel Sounds Present, Soft, Non Tender, Non-Distended : No renal angle tenderness. No suprapubic tenderness. Extremities: No edema, Capillary Refill Less than 3 Seconds Skin: Multiple small abrasions due to recurrent frequent fall, healing. Musculoskeletal: Muscle strength 4/5 at right knee and hip joints, weaker than left side. Moderate muscle atrophy of extremities. No Tenderness to Palpation of Joints or Extremities Neurological: Cranial nerves II-XII grossly intact, DTR 2+/4, symmetrical intact to gross sensory touch. Psych/Mental Status: Flat affect Weight / BMI Weight Weight: 149 lb 14.629 oz Body Mass Index (BMI) 20.3 ABG / Lab / Microbiology Data Result Diagrams: 12/22/22 07:15 12/27/22 05:17 Laboratory: Laboratory Results - last 24 hr 12/27/22 05:17: Sodium 133 L, Potassium 4.3, Chloride 100, Carbon Dioxide 26.0, Anion Gap 7, BUN 61 H, Creatinine 3.10 H, Estim Creat Clear Calc 23.76, Est GFR (MDRD) Af Amer 26 L, Est GFR (MDRD) Non-Af 22 L, BUN/Creatinine Ratio 19.7, Glucose 94, Calcium 8.1 L Microbiology: Microbiology 12/20/22 14:42 Blood Culture (Wb) - Left Forearm Blood Culture - Final No growth in 5 days. 12/20/22 08:40 Blood Culture (Wb) - Left Forearm Blood Culture - Final No growth in 5 days. 12/20/22 16:54 Mucosa - Nasopharyngeal Respiratory Panel (PCR) - Final 12/20/22 12:10 Urine, Clean Catch Legionella Antigen - Final 12/20/22 12:10 Urine, Clean Catch Streptococcus pneumoniae Antigen (M - Final 12/20/22 08:35 Nasal Secretion SARS-CoV-2 & FLU Antigen (Rapid) - Final Meaningful Use Info Meaningful Use Diagnoses (Choose all that apply): None applicable Discharge Plan Admission Admit Date/Time: 12/20/22 14:40 Primary Reason for Your Visit: Acute on chronic biventricular heart failure, severe pulmonary HTN, CAD,CV Attending Provider: Jarad Krueger Primary Care Provider: Rosario Arroyo Consulting Providers: Tiara Pritchard ; Yara Romero ; Jeremy Toney ; Delano Miles ; Maciel Ramirez ; Sammy Santiago ; Donald Ortiz ; Lucila Bonilla BIBLIOGRAPHIC SERVICES SPECIALIST Discharge Orders/Prescriptions Prescriptions: New sennosides-docusate sodium [Stool Softener-Stimulant Laxat] 8.6-50 mg Tablet 2 tab PO BID PRN PRN (Reason: Constipation) Qty: 0 0RF furosemide 40 mg Tablet 40 mg PO DAILY Qty: 0 0RF aspirin 81 mg Tablet,Delayed Release (Dr/Ec) 81 mg PO DAILY@0800 Qty: 0 0RF multivitamin Tablet 1 tab PO DAILYCM Qty: 0 0RF albuterol sulfate 2.5 mg /3 mL (0.083 %) Solution For Nebulization 2.5 mg inhalation Q2H PRN PRN (Reason: Dyspnea, wheezing) Qty: 0 0RF Mucinex DM 30-600 mg tablet extended release 12 hr 1 tab PO Q12H Qty: 14 0RF Continued acetaminophen 325 mg tablet 650 mg PO Q4H PRN (Reason: Pain) amlodipine 10 mg tablet 10 mg PO DAILY mirtazapine 15 mg tablet 15 mg PO QHS cholecalciferol (vitamin D3) 1,250 mcg (50,000 unit) capsule 1,250 mcg PO QWEEK nitroglycerin 0.4 mg Tablet, Sublingual 0.4 mg sublingual Q5M PRN (Reason: Chest Pain) Qty: 0 0RF ondansetron 4 mg tablet,disintegrating 4 mg PO Q8H PRN PRN (Reason: Nausea) Qty: 10 0RF atorvastatin 40 mg tablet 40 mg PO QHS carvedilol 25 mg tablet 25 mg PO BID isosorbide mononitrate 30 mg tablet extended release 24 hr 30 mg PO DAILY clopidogrel 75 mg tablet 75 mg PO DAILY Changed ferrous sulfate [FeroSul] 325 mg (65 mg iron) tablet 325 mg PO QODAY Qty: 0 0RF Discontinued magnesium hydroxide [Milk of Magnesia] 400 mg/5 mL suspension 30 ml PO DAILY PRN (Reason: Constipation) tramadol 50 mg tablet 50 mg PO Q6H PRN (Reason: Pain) Label Comments: is out of this at home Referrals / Follow Up: Reny Melton MD [Med Staff - Active Staff] - Within 1 Month (For biventricular heart failure) Yara Romero MD [Med Staff - Consulting] - Within 2 Weeks (For CKD stage IV.) Sammy Santiago MD [Med Staff - Active Staff] - Within 2 Weeks (For respiratory failure, hypertension.) Rosario Arroyo DO [Primary Care Provider] - Disposition Disposition (needs filled in before D/C Order can be placed): Long Term Facility Charges/Coding Visit Charges Inpatient E&M: 24921 Disch Hosp >30min
[2022-12-27] MEDS: 0.9% Saline Lock 10 ML Syringe IV (09:48)
[2022-12-27] MEDS: Isosorbide Mononitrate 30 MG Tablet PO (09:51)
[2022-12-27] MEDS: Clopidogrel Bisulfate 75 MG Tablet PO (09:51)
[2022-12-27] MEDS: Carvedilol 25 MG Tablet PO (09:51)
[2022-12-27] MEDS: amLODIPine 10 MG Tablet PO (09:51)
[2022-12-27] MEDS: Multivitamins,Therapeutic Tablet 1 TABLET PO (09:51)
[2022-12-27] MEDS: Furosemide 40 MG Tablet PO (09:51)
[2022-12-27] MEDS: Aspirin E.C. 81 MG Tablet PO (09:52)
[2022-12-27] MEDS: Ferrous Sulfate 325 MG Tablet PO (09:52)
[2022-12-27] MEDS: Heparin Injection (Vial) 5,000 UNIT/ML VIAL 5000 UNIT SC (09:54)
--- NOTE | 2022-12-27 10:28 | PHA.DC.MR ---
Pharmacy Service has performed discharge medication reconciliation for this patient. The patient's discharge medication list was reviewed for discrepancies and discrepancies were resolved. Home Medications nitroglycerin 0.4 mg sublingual tablet 0.4 mg sublingual Q5M PRN Chest Pain #0 tabs 03/07/22 acetaminophen 325 mg tablet 650 mg PO Q4H PRN Pain 06/05/22 amlodipine 10 mg tablet 10 mg PO DAILY heart 06/05/22 cholecalciferol (vitamin D3) 1,250 mcg (50,000 unit) capsule 1,250 mcg PO QWEEK supplement 06/05/22 mirtazapine 15 mg tablet 15 mg PO QHS sleep 06/05/22 ondansetron 4 mg disintegrating tablet 4 mg PO Q8H PRN PRN Nausea #10 tabs 11/17/22 atorvastatin 40 mg tablet 40 mg PO QHS cholesterol 12/20/22 carvedilol 25 mg tablet 25 mg PO BID heart 12/20/22 clopidogrel 75 mg tablet 75 mg PO DAILY blood thinner 12/20/22 isosorbide mononitrate 30 mg tablet,extended release 24 hr 30 mg PO DAILY heart 12/20/22 albuterol sulfate 2.5 mg/3 mL (0.083 %) solution for nebulization 2.5 mg (3 mL) inhalation Q2H PRN PRN Dyspnea, wheezing #0 mL 12/27/22 aspirin 81 mg tablet,delayed release 81 mg PO DAILY@0800 #0 tabs 12/27/22 dextromethorphan-guaifenesin 30 mg-600 mg tablet extended [id number] hr (Mucinex DM) 1 tab PO Q12H #14 tabs 12/27/22 ferrous sulfate 325 mg (65 mg iron) tablet (FeroSul) 325 mg PO QODAY supplement #0 tabs 12/27/22 furosemide 40 mg tablet 40 mg PO DAILY #0 tabs 12/27/22 multivitamin 1 tab PO DAILYCM #0 tabs 12/27/22 sennosides 8.6 mg-docusate sodium 50 mg tablet (Stool Softener-Stimulant Laxative) 2 tab PO BID PRN PRN Constipation #0 tabs 12/27/22
--- NOTE | 2022-12-27 10:30 | CASEMGMT ---
SW sent orders to [facility] via [facility]. SW asked if [facility] could spanish moss picker patient. Sima was checking. Juliane Holt MSW JACKY
[2022-12-27 10:54] VITALS: BP 113/67; PULSE 75; RESP 18; TEMP 36.6; O2SAT 95
--- NOTE | 2022-12-27 10:58 | PN.RENAL_ITS ---
Subjective Subjective Following for RASHAWN on CKD. The patient has no new complaints. He denies chest pain, shortness of breath, or nausea. Objective Data Objective Data Vital Signs: Vital Signs Temp Pulse Resp BP Pulse Ox O2 Del Method O2 Flow Rate 97.9 F 75 18 113/67 95 Room Air 3 12/27/22 10:54 12/27/22 10:54 12/27/22 10:54 12/27/22 10:54 12/27/22 10:54 12/27/22 10:54 12/20/22 21:49 Oxygen Flow Rate (L/min) 3 Oxygen Delivery Method Room Air Weight: 68 kg Body Mass Index (BMI) 20.3 Intake & Output: Intake and Output for Last 24 Hours 12/25/22 12/26/22 12/27/22 23:59 23:59 23:59 Intake Total 850 / 850 630 / 630 Output Total 2850 / 2850 2049 / 2049 800 / 800 Balance -2000 / -2000 -1420 / -1420 -800 / -800 Lab / Micro Data Result Diagrams: 12/22/22 07:15 12/27/22 05:17 Labs: Laboratory Results - last 24 hr 12/27/22 05:17: Sodium 133 L, Potassium 4.3, Chloride 100, Carbon Dioxide 26.0, Anion Gap 7, BUN 61 H, Creatinine 3.10 H, Estim Creat Clear Calc 23.76, Est GFR (MDRD) Af Amer 26 L, Est GFR (MDRD) Non-Af 22 L, BUN/Creatinine Ratio 19.7, Glucose 94, Calcium 8.1 L Micro: Microbiology 12/20/22 14:42 Blood Culture (Wb) - Left Forearm Blood Culture - Final No growth in 5 days. 12/20/22 08:40 Blood Culture (Wb) - Left Forearm Blood Culture - Final No growth in 5 days. 12/20/22 16:54 Mucosa - Nasopharyngeal Respiratory Panel (PCR) - Final 12/20/22 12:10 Urine, Clean Catch Legionella Antigen - Final 12/20/22 12:10 Urine, Clean Catch Streptococcus pneumoniae Antigen (M - Final 12/20/22 08:35 Nasal Secretion SARS-CoV-2 & FLU Antigen (Rapid) - Final Physical Exam Narrative Alert and oriented x3, no apparent distress S1, S2, RRR Lung sounds clear anteriorly. No wheezes, rhonchi or rales noted. Abdomen soft, nontender, positive bowel sounds No pitting edema noted bilateral lower legs or feet Assessment & Plan Assessment/Plan (1) RASHAWN (acute kidney injury): (2) CKD (chronic kidney disease), stage IV: (3) Aspiration pneumonia: (4) Type 2 diabetes mellitus: PLAN: Plan Impression/Plan: The patient is a 62-year-old man with past history of type 2 diabetes mellitus, CAD, heart failure with reduced ejection fraction, stroke, and pulmonary hypertension who was admitted to the hospital on 12/20/2022 with debility and aspiration pneumonia. He is also being treated for exacerbation of heart failure with reduced ejection fraction. Nephrology is following for acute kidney injury on chronic kidney disease stage IV. Acute kidney injury on chronic kidney disease stage IV. Baseline creatinine has been around 2.80 mg/dL. Serum creatinine has been as high as 3.43 mg/dL on 11/17/2022. Serologies were sent because of RASHAWN and proteinuria (urine protein to creatinine ratio was 610 mg/g on 12/21/2022). Thus far, complements, JALEN, and antineutrophil cytoplasmic antibodies are negative. Renal US did not show any hydronephrosis. Anti-GBM antibody is pending, but I have low suspicion for antiglomerular basement membrane antibody disease. Low suspicion for acute glomerulonephritis or vasculitis as the cause of RASHAWN. Urinalysis on 12/20/2022 did not show significant RBCs. Suspect RASHAWN is mainly due to cardiorenal etiology. Thus far, serum creatinine has been relatively stable between 3.00-3.40 mg/dL in the last 3 days. Today SCr is 3.10 mg/dL which is stable. Current serum creatinine ranges likely his new baseline. Will continue current dose of oral Lasix. No acute indication for any NOVELTY TWISTER OPERATOR. We will probably have to accept current elevation in serum creatinine to keep pa imtiaz compensated from heart failure standpoint. Current medications are reviewed and are appropriately dosed for his renal function. Recheck renal function again as outpatient. Heart failure with reduced ejection fraction. The patient is on carvedilol. Unfortunately, because of advanced CKD, the patient is not on RAAS inhibitor or mineralocorticoid receptor antagonist. Decreased IV lasix 40mg from BID to daily yesterday. Today will change lasix to 40mg oral starting tomorrow. Disposition: Okay to discharge from nephrology standpoint. Would discharge patient on 40 mg of Lasix once per day and recheck renal function panel again in 2 to 3 weeks. We will arrange for hospital follow-up. Discussed with Dr. Krueger.
[2022-12-27 11:18] LABS: Anti-Glomerular Basement Memb < 0.2 units (0.0-0.9)
--- NOTE | 2022-12-27 11:35 | CASEMGMT ---
Sima from [facility] said they could pick patient up. Sima said the earliest would be 08/1230, but she will let SW know as soon as she has a definite time. SW let RN and alumnae secretary know this information. Plan: d/c to [facility] under skilled level of care on a convalescent stay. Juliane Holt ELECTRICIAN ASSISTANT JACKY
--- NOTE | 2022-12-27 12:05 | CASEMGMT ---
KAREN called patient's brother Kyle to notify him of d/c, but his voice mailbox has not been set up. KAREN called Kaelyn with [facility] and left her a voice mail letting her know patient is going to [facility] today. KAREN also called Adult Protective Services and left a message for Giuseppe letting her know as well. Juliane Holt REVERBERATORY FURNACE SUPERVISOR JACKY
--- NOTE | 2022-12-27 12:17 | CASEMGMT ---
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 SW notified secretary to board of commissioners and RN. SW also notified both that [facility] will likely not come up to the floor patient will have to be taken to main entrance. Juliane RICO
--- NOTE | 2022-12-27 12:35 | NURSING ---
Report called to nurse Truong for pt to be d/c to [facility]. [facility] will picker pt.
--- NOTE | 2022-12-27 13:14 | CASEMGMT ---
KAREN received a call from patient's brother Kyle. KAREN let Kyle know that patient is going to [facility] today. He thanked KAREN for notifying him. Juliane RICO
== END 2022-12-27 13:05 | disposition skilled nursing facility (03) | DRG 177 ==
LOC: ED 14:37 → PCU 15:09
PROVIDERS: Family Medicine; Internal Medicine; Nurse Practitioner Adult Health; Admitting Provider Family Medicine; Emergency Provider Emergency Medicine; PCP Family Medicine; Visit Provider Internal Medicine
DX: J69.0 Pneumonitis due to inhalation of food and vomit (principal); E43 Unspecified severe protein-calorie malnutrition; I50.23 Acute on chronic systolic (congestive) heart failure; I69.351 Hemiplegia and hemiparesis following cerebral infarction affecting right dominant side; N17.9 Acute kidney failure, unspecified; I13.0 Hypertensive heart and chronic kidney disease with heart failure and stage 1 through stage 4 chronic kidney disease, or unspecified chronic kidney disease; N18.4 Chronic kidney disease, stage 4 (severe); I27.22 Pulmonary hypertension due to left heart disease; E11.22 Type 2 diabetes mellitus with diabetic chronic kidney disease; D50.9 Iron deficiency anemia, unspecified; I50.82 Biventricular heart failure; E78.00 Pure hypercholesterolemia, unspecified; I25.10 Atherosclerotic heart disease of native coronary artery without angina pectoris; F17.220 Nicotine dependence, chewing tobacco, uncomplicated; I07.1 Rheumatic tricuspid insufficiency; I25.5 Ischemic cardiomyopathy; F41.9 Anxiety disorder, unspecified; I69.328 Other speech and language deficits following cerebral infarction; I69.319 Unspecified symptoms and signs involving cognitive functions following cerebral infarction; R09.02 Hypoxemia; Z20.822 Contact with and (suspected) exposure to COVID-19; Z68.20 Body mass index [BMI] 20.0-20.9, adult; R62.7 Adult failure to thrive; R53.1 Weakness; R29.6 Repeated falls; R80.9 Proteinuria, unspecified; F32.A Depression, unspecified; R53.81 Other malaise; Z79.82 Long term (current) use of aspirin; Z79.02 Long term (current) use of antithrombotics/antiplatelets; Z79.899 Other long term (current) drug therapy; Z95.5 Presence of coronary angioplasty implant and graft; R13.10 Dysphagia, unspecified; Z66 Do not resuscitate
CPT/HCPCS: 36415; 70450; 71045; 71046; 74230; 76770; 80048; 80053; 80061; 81001; 82140; 82570; 82962; 83036; 83520; 83605; 83690; 83735; 83880; 84145; 84156; 84300; 84443; 84484; 85025; 85610; 85730; 86038; 86160; 86225; 86235; 86256; 87040; 87428; 87449; 87633; 87635; 92526; 92610; 92611; 93005; 93306; 94668; 97110; 97162; 97166; 97530; 97535; 97803; 99252; 99285; J7030; J7040; A4216; G0463; J0696; J1940; U0003; U0005

== ENCOUNTER 2023-01-16 10:24 | Emergency (ER) | payer MEDICARE, MEDICAID, SELFPAY ==
[2019-02-26 13:57] VITALS: BMI 24.9
[2023-01-16 10:26] VITALS: BP 91/65; PULSE 77; RESP 14; TEMP 36.4; O2SAT 100
[2023-01-16 11:03] VITALS: BP 103/75; PULSE 76; RESP 17; O2SAT 97; BMI 20.9
[2023-01-16] MEDS: 0.9% Normal Saline 1,000 ML 150 ML IV (11:42)
--- NOTE | 2023-01-16 11:50 | RAD_ITS ---
STUDY: X-RAY CHEST REASON FOR EXAM: Male, 62 years old. Weakness TECHNIQUE: Single AP portable view of the chest. COMPARISON: Comparison is made with prior study dated December 21, 2022. FINDINGS: EKG electrodes are seen. Hyperinflation. The lungs are clear. There is no demonstrated pleural abnormality. Normal size heart. Normal mediastinum and gilbert. Normal visualized pulmonary arteries. Normal visualized aortic arch and descending thoracic aorta. There are diffuse degenerative changes of the visualized thoracic spine. Normal visualized ribs, clavicles, and shoulders. There is no demonstrated abnormality of the visualized soft tissue structures of the upper abdomen. RAD/Chest 1 View (Portable) IMPRESSION: Hyperinflation. The lungs are clear. Electronically Signed: Randy Murrell MD at 12:10 EDT ,
--- NOTE | 2023-01-16 11:57 | EX.ED.DYSGE1 ---
HPI History of Present Illness Chief Complaint: Hypotension Informant: patient Narrative Narrative: Patient is a 62-year-old male with complex medical history including CKD 4, hypertension, ischemic dilated cardiomyopathy, pulmonary hypertension, aspiration and uncontrolled type 2 diabetes mellitus. He was recently admitted to the hospital from 12/20 to 12/27 for generalized weakness, debility and aspiration pneumonia. Patient was discharged to [facility]. Patient had an appointment to see pulmonology today and was found to be hypotensive in the office. Of pulmonology note reviewed and shows a blood pressure of 66/48 with a heart rate of 79 and on repeat a blood pressure of 80/56. Patient states he felt fine during this. Per report patient was very pale. Patient was then sent immediately to the emergency room for further evaluation. Patient continues to have no complaints. [facility] Medical History Acute cerebrovascular accident of cerebellum Ankle fracture, left Atherosclerotic heart disease of [place] coronary artery without angina pectoris CKD (chronic kidney disease), stage IV Essential hypertension History of left heart catheterization (LHC) (~02/26/19) Ischemic dilated cardiomyopathy Neck fracture PFO (patent foramen ovale) Presence of stent in coronary artery (~02/26/19) Pulmonary hypertension Pulmonary hypertension assoc with unclear multi-factorial mechanisms Pure hypercholesterolemia Smokeless tobacco use Tobacco chew use Uncontrolled type 2 diabetes mellitus Home Medications nitroglycerin 0.4 mg sublingual tablet 0.4 mg sublingual Q5M PRN Chest Pain #0 tabs 03/07/22 [Rx Last Taken Unknown] acetaminophen 325 mg tablet 650 mg PO Q4H PRN Pain 06/05/22 [History Last Taken Unknown] amlodipine 10 mg tablet 10 mg PO DAILY BLOOD PRESSURE 06/05/22 [History Last Taken 01/16/23 09:00] cholecalciferol (vitamin D3) 1,250 mcg (50,000 unit) capsule 1,250 mcg PO FR SUPPLEMENT 06/05/22 [History Last Taken 01/12/23] mirtazapine 15 mg tablet 15 mg PO QHS INSOMNIA 06/05/22 [History Last Taken 01/15/23 20:00] atorvastatin 40 mg tablet 40 mg PO QHS CHOLESTEROL 12/20/22 [History Last Taken 01/15/23 20:00] carvedilol 25 mg tablet 25 mg PO BID HEART 12/20/22 [History Last Taken 01/16/23 09:00] clopidogrel 75 mg tablet 75 mg PO DAILY BLOOD THINNER 12/20/22 [History Last Taken 01/16/23 09:00] isosorbide mononitrate 30 mg tablet,extended release 24 hr 30 mg PO DAILY HEART 12/20/22 [History Last Taken 01/16/23 09:00] albuterol sulfate 2.5 mg/3 mL (0.083 %) solution for nebulization 2.5 mg (3 mL) inhalation Q2H PRN PRN Dyspnea, wheezing #0 mL 12/27/22 [Rx Last Taken Unknown] aspirin 81 mg tablet,delayed release 81 mg PO DAILY HEART HEALTH 01/16/23 [History Last Taken 01/16/23] ferrous sulfate 325 mg (65 mg iron) tablet (FeroSul) 325 mg PO QODAY SUPPLEMENT 01/16/23 [History Last Taken 01/16/23 09:00] furosemide 40 mg tablet 40 mg PO DAILY FLUID 01/16/23 [History Last Taken 01/16/23 09:00] multivitamin 1 tab PO QHS HEALTH MAINTENANCE 01/16/23 [History Last Taken 01/15/23] ondansetron 4 mg disintegrating tablet 4 mg PO Q8H PRN Nausea 01/16/23 [History Last Taken Unknown] sennosides 8.6 mg-docusate sodium 50 mg tablet (Stool Softener-Stimulant Laxative) 2 tab PO BID PRN Constipation 01/16/23 [History Last Taken Unknown] Allergy/AdvReac Type Severity Reaction Status Date / Time ampicillin Allergy Swelling Verified 01/16/23 10:29 fish derived Allergy Swelling Verified 01/16/23 10:29 [seafood - derived] ibuprofen [From Motrin] Allergy Swelling Verified 01/16/23 10:29 shellfish derived Allergy Swelling Verified 01/16/23 10:29 [seafood - shellfish] Family History Mother Heart disease Hypertension Father Heart disease Hypertension Surgical History H/O bilateral hip replacements Presence of coronary angioplasty implant and graft (~02/26/19) Social History household members: none Smoking Status: Former smoker Smokeless tobacco user: chewing tobacco alcohol intake: never substance use type: does not use caffeine: Yes ROS ROS ED Constitutional Constitutional ED: Denies chills or fever(s) Eyes Eyes: Denies change in vision Cardiovascular Cardiovascular: Denies chest pain Respiratory/Chest Respiratory/Chest: Denies cough or dyspnea Gastrointestinal Gastrointestinal: Denies nausea or vomiting Musculoskeletal Musculoskeletal: Denies arthralgias or myalgias Integumentary Reports other Details: pallor reported ; Denies rash Neurologic Neurologic: Reports weakness; Denies headache(s) Psychiatric Psychiatric: Denies anxiety Hematologic/Lymphatic Hematologic/Lymphatic: Denies easy bleeding or easy bruising EXAM Physical Exam Const Vital Signs: 01/16/23 10:26 01/16/23 11:03 01/16/23 11:03 Temperature 97.6 F L Temperature Source Temporal Pulse Rate 77 76 Pulse Rate [Lying] Pulse Rate [Sitting (for 1 minute prior to obtaining)] Pulse Rate [Standing (for 1 minute prior to obtaining)] Respiratory Rate 14 17 Respiratory Pattern Normal Blood Pressure 91/65 103/75 Blood Pressure [Lying] Blood Pressure [Sitting (for 1 minute prior to obtaining)] Blood Pressure [Standing (for 1 minute prior to obtaining)] Blood Pressure Mean 73 84 Blood Pressure Mean [Lying] Blood Pressure Mean [Sitting (for 1 minute prior to obtaining)] Blood Pressure Mean [Standing (for 1 minute prior to obtaining)] Pulse Ox 100 97 Oxygen Delivery Method Room Air Room Air 01/16/23 13:21 Temperature Temperature Source Pulse Rate Pulse Rate [Lying] 80 Pulse Rate [Sitting (for 1 minute prior to obtaining)] 80 Pulse Rate [Standing (for 1 minute prior to obtaining)] 84 Respiratory Rate Respiratory Pattern Blood Pressure Blood Pressure [Lying] 109/78 Blood Pressure [Sitting (for 1 minute prior to obtaining)] 107/72 Blood Pressure [Standing (for 1 minute prior to obtaining)] 107/77 Blood Pressure Mean Blood Pressure Mean [Lying] 88 Blood Pressure Mean [Sitting (for 1 minute prior to obtaining)] 83 Blood Pressure Mean [Standing (for 1 minute prior to obtaining)] 87 Pulse Ox Oxygen Delivery Method Positive well nourished and well developed General Appearance ED: well developed and NAD; Negative for pallor HEENT Reports moist mucous membranes Negative for trauma Eyes PERRL and EOMs intact bilaterally Neck supple and no JVD Chest Wall inspection of chest normal and palpation of chest normal Resp normal respiratory effort and clear to auscultation bilaterally Cardio regular rate, regular rhythm and no murmurs GI normal to inspection, nondistended, normoactive bowel sounds and non-tender Extremity normal to inspection General Extremety ED: Negative for edema or tenderness General Extremity: Negative for edema Neuro oriented x3 Neuro Narrative: No focal deficits appreciated Sensorium / Orientation: alert Motor Exam: general weakness Psych mental status grossly normal Skin no rashes or lesions noted General Skin Exam: Negative for pallor MDM MDM MDM Narrative Medical decision making narrative: Patient is evaluated for an episode of hypotension while at the doctor's office. Patient is normotensive in the emergency room. He is asymptomatic. EKG, labs and urinalysis as well as chest x-ray obtained looking for cause of this hypotension. Work-up is largely negative. Hemoglobin is mildly low at 10.9 but this is his baseline. He does not have an acute leukocytosis. He is not hypoxic and is saturating normally on room air. BNP shows an elevated creatinine of 2.74 but this is his baseline and actually slightly improved from where he was 2 weeks ago. Potassium mildly elevated at 5.2 but EKG not consistent with hyperkalemia. Patient has no other significant electrolyte abnormalities. Urinalysis is normal. BNP is elevated at 467.8 however this is actually downtrending quite significantly. He does not appear fluid overloaded. His lactate is normal at 1.0. Orthostatics are normal in the ER. Patient is given gentle fluids in the emergency room. Question if he may have he was over diuresed or had an episode of vasovagal syncope. Case is discussed with on-call physician for [facility], Dr. Valencia, who is agreeable with him being discharged back. Patient is given return precautions. Discharged back in stable condition. Lab Data Attestation: I reviewed the patient's lab results. Labs: Laboratory Results - last 24 hr 01/16/23 01/16/23 01/16/23 11:39 11:39 11:39 WBC 7.4 RBC 4.02 L Hgb 10.9 L Hct 36.2 L MCV 90.0 MCH 27.1 MCHC 30.1 L RDW Std Deviation 63.[address] Coeff of Ave 19.3 H Plt Count 331 MPV 10.8 Immature Gran % (Auto) 0.700 Neut % (Auto) 78.1 H Lymph % (Auto) 11.3 L [place] % (Auto) 6.4 Eos % (Auto) 2.8 Baso % (Auto) 0.7 Absolute Neuts (auto) 5.8 Absolute Lymphs (auto) 0.83 Nucleated RBC % 0 PT 15.0 H INR 1.2 APTT 31.8 Sodium 141 Potassium 5.2 H Chloride 109 H Carbon Dioxide 24.0 Anion Gap 8 BUN 54 H Creatinine 2.74 H Estim Creat Clear Calc 27.72 Est GFR (MDRD) Af Amer 30 L Est GFR (MDRD) Non-Af 25 L BUN/Creatinine Ratio 19.7 Glucose 95 Lactic Acid Calcium 8.8 Total Bilirubin 0.50 AST 15 ALT 22 Alkaline Phosphatase 94 Troponin I High Sens 19 B-Natriuretic Peptide Total Protein 7.0 Albumin 3.3 Globulin 3.7 Albumin/Globulin Ratio 0.9 Urine Color Urine Clarity Urine pH Ur Specific [place] Urine Protein Urine Glucose (UA) Urine Ketones Urine Occult Blood Urine Nitrite Urine Bilirubin Urine Urobilinogen Ur Leukocyte Esterase Urine RBC Urine WBC Ur Squamous Epith Cells Urine Bacteria Urine Mucus 01/16/23 01/16/23 01/16/23 11:39 11:39 12:40 WBC RBC Hgb Hct MCV MCH MCHC RDW Std Deviation RDW Coeff of Ave Plt Count MPV Immature Gran % (Auto) Neut % (Auto) Lymph % (Auto) Bond % (Auto) Eos % (Auto) Baso % (Auto) Absolute Neuts (auto) Absolute Lymphs (auto) Nucleated RBC % PT INR APTT Sodium Potassium Chloride Carbon Dioxide Anion Gap BUN Creatinine Estim Creat Clear Calc Est GFR (MDRD) Af Amer Est GFR (MDRD) Non-Af BUN/Creatinine Ratio Glucose Lactic Acid 1.0 Calcium Total Bilirubin AST ALT Alkaline Phosphatase Troponin I High Sens B-Natriuretic Peptide 467.8 H Total Protein Albumin Globulin Albumin/Globulin Ratio Urine Color Yellow Urine Clarity Sl. Cloudy Urine pH 6.0 Ur Specific [place] 1.010 Urine Protein Negative Urine Glucose (UA) Normal Urine Ketones Negative Urine Occult Blood Negative Urine Nitrite Negative Urine Bilirubin Negative Urine Urobilinogen Normal Ur Leukocyte Esterase Negative Urine RBC 0 SEEN Urine WBC 0 SEEN Ur Squamous Epith Cells 0 SEEN Urine Bacteria 0 SEEN Urine Mucus 0 SEEN 01/16/23 14:30 WBC RBC Hgb Hct MCV MCH MCHC RDW Std Deviation RDW Coeff of Ave Plt Count MPV Immature Gran % (Auto) Neut % (Auto) Lymph % (Auto) Bond % (Auto) Eos % (Auto) Baso % (Auto) Absolute Neuts (auto) Absolute Lymphs (auto) Nucleated RBC % PT INR APTT Sodium Potassium Chloride Carbon Dioxide Anion Gap BUN Creatinine Estim Creat Clear Calc Est GFR (MDRD) Af Amer Est GFR (MDRD) Non-Af BUN/Creatinine Ratio Glucose Lactic Acid Calcium Total Bilirubin AST ALT Alkaline Phosphatase Troponin I High Sens 17 B-Natriuretic Peptide Total Protein Albumin Globulin Albumin/Globulin Ratio Urine Color Urine Clarity Urine pH Ur Specific [place] Urine Protein Urine Glucose (UA) Urine Ketones Urine Occult Blood Urine Nitrite Urine Bilirubin Urine Urobilinogen Ur Leukocyte Esterase Urine RBC Urine WBC Ur Squamous Epith Cells Urine Bacteria Urine Mucus Radiography Chest X-Ray - ED: 1 View, Read by ED Physician, Read by Radiologist and No Acute Disease Diagnostic Testing: Clinical Impression(s) from Imaging Studies Chest X-Ray 01/16/23 11:50 IMPRESSION: Hyperinflation. The lungs are clear. Electronically Signed: Randy Murrell MD at 12:10 EDT , Rhythm Strip Rhythm Strip: Sinus Rhythm Rate: 74 Ectopy: None EKG Initial EKG: Attestation: I personally reviewed and interpreted this EKG as follows: Interpretation: Sinus Rhythm Comments: Normal sinus rhythm rate of 74 bpm Normal axis Normal intervals Normal ST segments Management Discussion w/another healthcare provider: PCP Discharge Plan Triage Chief Complaint: Hypotension ED Provider: Ginny Arredondo Dx/Rx/DC Orders Clinical Impression: Transient hypotension Instructions: ED Low Blood Pressure, All Causes Prescriptions: No Action acetaminophen 325 mg tablet 650 mg PO Q4H PRN (Reason: Pain) amlodipine 10 mg tablet 10 mg PO DAILY mirtazapine 15 mg tablet 15 mg PO QHS cholecalciferol (vitamin D3) 1,250 mcg (50,000 unit) capsule 1,250 mcg PO FR nitroglycerin 0.4 mg Tablet, Sublingual 0.4 mg sublingual Q5M PRN (Reason: Chest Pain) Qty: 0 0RF atorvastatin 40 mg tablet 40 mg PO QHS carvedilol 25 mg tablet 25 mg PO BID isosorbide mononitrate 30 mg tablet extended release 24 hr 30 mg PO DAILY clopidogrel 75 mg tablet 75 mg PO DAILY albuterol sulfate 2.5 mg /3 mL (0.083 %) Solution For Nebulization 2.5 mg inhalation Q2H PRN PRN (Reason: Dyspnea, wheezing) Qty: 0 0RF multivitamin Tablet 1 tab PO QHS furosemide 40 mg tablet 40 mg PO DAILY sennosides-docusate sodium [Stool Softener-Stimulant Laxat] 8.6-50 mg tablet 2 tab PO BID PRN (Reason: Constipation) aspirin 81 mg tablet,delayed release (DR/EC) 81 mg PO DAILY ferrous sulfate [FeroSul] 325 mg (65 mg iron) tablet 325 mg PO QODAY ondansetron 4 mg tablet,disintegrating 4 mg PO Q8H PRN (Reason: Nausea) Primary Care Provider: Rosario Arroyo Referrals: Rosario Arroyo DO [Primary Care Provider] - Disposition Disposition: Jail Facility Discharge Location: [facility] Discharge Date/Time: 01/16/23 15:40
[2023-01-16 12:02] LABS: Absolute Lymphocyte Count 0.83 X10^3/uL (0.83-4.51); Absolute Neutrophil Count 5.8 X10^3/uL (2.0-7.7); Basophil# 0.05 X10^3/uL; Basophil% 0.7 % (0-1); Eosinophil# 0.21 X10^3/uL; Eosinophils% 2.8 % (0-5); Hematocrit 36.2 % (40-54); Hemoglobin 10.9 g/dL (13.0-16.5); Lymphocyte # 0.83 X10^3/ul (0.83-4.51); Lymphocyte % 11.3 % (19-41); Mean Corp Hgb Conc 30.1 g/dL (32-36); Mean Corpuscular Hgb 27.1 pg (27.0-32.0); Mean Platelet Vol. 10.8 fl (6.2-12.0); Monocyte# 0.47 X10^3/uL; Monocyte% 6.4 % (0-10); NRBC Flagged by Analyzer 0 % (0-5); Neutrophil # 5.76 X10^3/uL (2.7-7.7); Neutrophil % 78.1 % (47-70); Platelet Count 331 K/mm3 (150-450); RBC Distribution Width CV 19.3 % (11.6-14.6); Red Blood Count 4.02 M/mm3 (4.6-6.2); White Blood Count 7.4 K/mm3 (4.4-11.0)
[2023-01-16 12:18] LABS: ALB/GLOB Ratio 0.9 RATIO (0.9-2.4); AST(SGOT) 15 U/L (15-37); Alanine Aminotransfer ALT/SGPT 22 U/L (16-61); Albumin, Serum 3.3 g/dL (3.2-5.0); Alkaline Phosphatase 94 U/L (45-117); Anion Gap 8 (5-15); BUN 54 mg/dL (7-18); BUN/Creat Ratio 19.7 RATIO (10-20); Calcium,Total 8.8 mg/dL (8.5-10.1); Chloride 109 mmol/L (98-107); Creatinine, Serum 2.74 mg/dL (0.70-1.30); EST Glomerular Filtration Rate 25 mL/min (>60); Est Glom Filt Rate - Afr Amer 30 mL/min (>60); Estimated Creatinine Clearance 27.72 ml/min; Globulin 3.7 g/dL (2.2-4.2); Glucose 95 mg/dL (74-106); Potassium 5.2 mmol/L (3.5-5.1); Sodium Level 141 mmol/L (136-145); Troponin-I HS (w/2H Reflex) 19 pg/mL (3.0-78.0)
[2023-01-16 12:25] LABS: BNP,B-Type NATRIURETIC PEPTIDE 467.8 pg/mL (0-100)
[2023-01-16 12:34] LABS: International Normalized Ratio 1.2
[2023-01-16 12:35] LABS: Partial Thromboplast Time 31.8 Seconds (24.1-36.2)
[2023-01-16 12:46] LABS: Bacteria 0 SEEN /hpf (None Seen); Mucous, Urine 0 SEEN /hpf (<or=2+); Red Blood Cells-Urine 0 SEEN /hpf (0-5); Squamous Epithelial Cells - UA 0 SEEN /hpf (0-5); White Blood Cells 0 SEEN /hpf (0-5)
[2023-01-16 12:53] LABS: Color, Urine Yellow (Yellow); Glucose, Dipstick Normal (Normal); Ketone-Dipstick Negative (Negative); Leukocyte Esterase-Dipstick Negative /ul (Negative); Nitrite-Dipstick Negative (Negative); Occult Blood-Urine Negative /ul (Negative); Protein-Dipstick Negative (Negative); Urine Bilirubin Dipstick Negative (Negative); Urine Clarity Sl. Cloudy (Clear); Urine Urobilinogen Normal (Normal)
[2023-01-16 13:21] VITALS: BP 107/72; BP 107/77; BP 109/78; PULSE 80; PULSE 84
[2023-01-16 13:53] LABS: Reflex Troponin-HS? (from REC) Y
--- NOTE | 2023-01-16 15:02 | NURSING ---
CALLED TO SET UP TRANSPORT TO GO BACK TO [facility] ETA GIVEN 20 MINUTES 1520P
[2023-01-16 15:05] LABS: Troponin-I HS 17 pg/mL (3.0-78.0)
== END 2023-01-16 15:40 | disposition skilled nursing facility (03) ==
PROVIDERS: Emergency Provider Emergency Medicine; PCP Family Medicine; Visit Provider Emergency Medicine
DX: I95.89 Other hypotension (principal); I42.0 Dilated cardiomyopathy; I27.20 Pulmonary hypertension, unspecified; E11.22 Type 2 diabetes mellitus with diabetic chronic kidney disease; N18.4 Chronic kidney disease, stage 4 (severe); I12.9 Hypertensive chronic kidney disease with stage 1 through stage 4 chronic kidney disease, or unspecified chronic kidney disease; F17.220 Nicotine dependence, chewing tobacco, uncomplicated; E78.00 Pure hypercholesterolemia, unspecified; I25.10 Atherosclerotic heart disease of native coronary artery without angina pectoris
CPT/HCPCS: 71045; 80053; 81001; 83605; 83880; 84484; 85025; 85610; 85730; 93005; 96360; 96361; 99284; J7030; A4216

== ENCOUNTER → 2023-01-26 | Outpatient (REF) | payer MEDICARE, MEDICAID, SELFPAY ==
[2019-02-26 13:57] VITALS: BMI 24.9
[2023-01-26 09:22] LABS: Hematocrit 34.4 % (40-54); Hemoglobin 10.6 g/dL (13.0-16.5); Mean Corp Hgb Conc 30.8 g/dL (32-36); Mean Corpuscular Hgb 27.4 pg (27.0-32.0); Mean Corpuscular Volume 88.9 fL (80-94); Mean Platelet Vol. 11.3 fl (6.2-12.0); Platelet Count 197 K/mm3 (150-450); RBC Distribution Width CV 19.2 % (11.6-14.6); RBC Distribution Width SD 62.5 fl (35.1-43.9); Red Blood Count 3.87 M/mm3 (4.6-6.2); White Blood Count 5.4 K/mm3 (4.4-11.0)
[2023-01-26 09:38] LABS: ALB/GLOB Ratio 1.1 RATIO (0.9-2.4); AST(SGOT) 14 U/L (15-37); Alanine Aminotransfer ALT/SGPT 18 U/L (16-61); Albumin, Serum 3.1 g/dL (3.2-5.0); Alkaline Phosphatase 71 U/L (45-117); Anion Gap 7 (5-15); BUN 52 mg/dL (7-18); BUN/Creat Ratio 20.9 RATIO (10-20); Calcium,Total 8.2 mg/dL (8.5-10.1); Chloride 109 mmol/L (98-107); Creatinine, Serum 2.49 mg/dL (0.70-1.30); EST Glomerular Filtration Rate 28 mL/min (>60); Est Glom Filt Rate - Afr Amer 34 mL/min (>60); Globulin 2.9 g/dL (2.2-4.2); Glucose 90 mg/dL (74-106); Potassium 4.5 mmol/L (3.5-5.1); Sodium Level 141 mmol/L (136-145)
== END | disposition home or self-care (01) ==
LOC: OLS.SW 05:00
PROVIDERS: PCP Family Medicine; Visit Provider Family Medicine
DX: E11.22 Type 2 diabetes mellitus with diabetic chronic kidney disease (principal); N18.4 Chronic kidney disease, stage 4 (severe)
CPT/HCPCS: 36415; 80053; 85027

== ENCOUNTER → 2023-02-09 | Outpatient (REF) | payer MEDICARE, MEDICAID, SELFPAY ==
[2019-02-26 13:57] VITALS: BMI 24.9
[2023-02-09 06:46] LABS: Hemoglobin 10.6 g/dL (13.0-16.5); Mean Corp Hgb Conc 31.2 g/dL (32-36); Mean Corpuscular Hgb 28.2 pg (27.0-32.0); Mean Corpuscular Volume 90.4 fL (80-94); Mean Platelet Vol. 11.4 fl (6.2-12.0); Platelet Count 223 K/mm3 (150-450); RBC Distribution Width CV 18.7 % (11.6-14.6); RBC Distribution Width SD 62.2 fl (35.1-43.9); Red Blood Count 3.76 M/mm3 (4.6-6.2); White Blood Count 6.5 K/mm3 (4.4-11.0)
[2023-02-09 07:08] LABS: ALB/GLOB Ratio 0.9 RATIO (0.9-2.4); AST(SGOT) 18 U/L (15-37); Alanine Aminotransfer ALT/SGPT 23 U/L (16-61); Albumin, Serum 2.9 g/dL (3.2-5.0); Alkaline Phosphatase 93 U/L (45-117); Anion Gap 7 (5-15); BUN 34 mg/dL (7-18); BUN/Creat Ratio 15.5 RATIO (10-20); Calcium,Total 8.5 mg/dL (8.5-10.1); Chloride 111 mmol/L (98-107); EST Glomerular Filtration Rate 32 mL/min (>60); Est Glom Filt Rate - Afr Amer 39 mL/min (>60); Globulin 3.3 g/dL (2.2-4.2); Glucose 87 mg/dL (74-106); Potassium 4.7 mmol/L (3.5-5.1); Protein, Total 6.2 g/dL (6.4-8.2); Sodium Level 142 mmol/L (136-145)
== END ==
LOC: OLS.SW 05:00
PROVIDERS: PCP Family Medicine; Visit Provider Family Medicine
DX: I13.0 Hypertensive heart and chronic kidney disease with heart failure and stage 1 through stage 4 chronic kidney disease, or unspecified chronic kidney disease (principal); I50.9 Heart failure, unspecified; N18.4 Chronic kidney disease, stage 4 (severe)
CPT/HCPCS: 36415; 80053; 85027

== ENCOUNTER 2023-07-10 16:39 | Inpatient (IN) | payer MEDICARE, MEDICAID, SELFPAY ==
[2019-02-26 13:57] VITALS: BMI 24.9
[2023-07-10 16:39] VITALS: BP 165/121; PULSE 109; RESP 18; TEMP 35.5; O2SAT 100; BMI 24.5
[2023-07-10 16:56] VITALS: BP 155/112; PULSE 97; RESP 19; TEMP 36.3; O2SAT 98
--- NOTE | 2023-07-10 17:14 | EDS_ITS ---
HPI History of Present Illness Chief Complaint: General Illness Informant: patient and friend Narrative Narrative: None secondary to chest pain, shortness of breath, and abdominal pain. Patient states that he has chronic chest pain that comes across the left lower chest and down into the epigastric region in his abdomen. He has had this for quite some time and it is not new or different. About 2 weeks ago he started noticing more shortness of breath. Friend states that she took him to the store last and he seemed to be breathing heavy but felt that he was okay. Patient called her today asking her to come in and bring him to the hospital. He denies fever or chills. He has not had cough or congestion. He is a diabetic but is not on oral antiglycemics or insulin. He does not check his blood sugars. [facility] Medical History Acute cerebrovascular accident of cerebellum Ankle fracture, left Atherosclerotic heart disease of [place] coronary artery without angina pectoris CKD (chronic kidney disease), stage IV Essential hypertension History of left heart catheterization (LHC) (~02/26/19) Ischemic dilated cardiomyopathy Neck fracture PFO (patent foramen ovale) Presence of stent in coronary artery (~02/26/19) Pulmonary hypertension Pulmonary hypertension assoc with unclear multi-factorial mechanisms Pure hypercholesterolemia Smokeless tobacco use Tobacco chew use Uncontrolled type 2 diabetes mellitus Home Medications nitroglycerin 0.4 mg sublingual tablet 0.4 mg sublingual Q5M PRN Chest Pain #0 tabs 03/07/22 [Rx Last Taken Unknown] acetaminophen 325 mg tablet 650 mg PO Q4H PRN Pain 06/05/22 [History Last Taken Unknown] amlodipine 10 mg tablet 10 mg PO DAILY BLOOD PRESSURE 06/05/22 [History Last Taken 07/10/23] cholecalciferol (vitamin D3) 1,250 mcg (50,000 unit) capsule 1,250 mcg PO FR SUPPLEMENT 06/05/22 [History Last Taken 01/12/23] mirtazapine 15 mg tablet 15 mg PO QHS INSOMNIA 06/05/22 [History Last Taken 01/15/23 20:00] atorvastatin 40 mg tablet 40 mg PO QHS CHOLESTEROL 12/20/22 [History Last Taken 07/09/23] carvedilol 25 mg tablet 25 mg PO BID HEART 12/20/22 [History Last Taken 01/16/23 09:00] clopidogrel 75 mg tablet 75 mg PO DAILY BLOOD THINNER 12/20/22 [History Last Taken 01/16/23 09:00] isosorbide mononitrate 30 mg tablet,extended release 24 hr 30 mg PO DAILY HEART 12/20/22 [History Last Taken 01/16/23 09:00] albuterol sulfate 2.5 mg/3 mL (0.083 %) solution for nebulization 2.5 mg (3 mL) inhalation Q2H PRN PRN Dyspnea, wheezing #0 mL 12/27/22 [Rx Last Taken Unknown] aspirin 81 mg tablet,delayed release 81 mg PO DAILY HEART HEALTH 01/16/23 [History Last Taken 01/16/23] ferrous sulfate 325 mg (65 mg iron) tablet (FeroSul) 325 mg PO QODAY SUPPLEMENT 01/16/23 [History Last Taken 01/16/23 09:00] furosemide 40 mg tablet 40 mg PO DAILY FLUID 01/16/23 [History Last Taken 01/16/23 09:00] multivitamin 1 tab PO QHS HEALTH MAINTENANCE 01/16/23 [History Last Taken 01/15/23] ondansetron 4 mg disintegrating tablet 4 mg PO Q8H PRN Nausea 01/16/23 [History Last Taken Unknown] sennosides 8.6 mg-docusate sodium 50 mg tablet (Stool Softener-Stimulant Laxative) 2 tab PO BID PRN Constipation 01/16/23 [History Last Taken Unknown] Allergy/AdvReac Type Severity Reaction Status Date / Time ampicillin Allergy Swelling Verified 07/10/23 16:41 fish derived Allergy Swelling Verified 07/10/23 16:41 [seafood - derived] ibuprofen [From Motrin] Allergy Swelling Verified 07/10/23 16:41 shellfish derived Allergy Swelling Verified 07/10/23 16:41 [seafood - shellfish] Family History Mother Heart disease Hypertension Father Heart disease Hypertension Surgical History H/O bilateral hip replacements Presence of coronary angioplasty implant and graft (~02/26/19) Social History household members: none Smoking Status: Current every day smoker tobacco type: smokeless tobacco Smokeless tobacco user: chewing tobacco alcohol intake: never substance use type: does not use caffeine: Yes ROS ROS ED Constitutional Constitutional ED: Denies chills or fever(s) Eyes Eyes: Denies change in vision or discharge from eye(s) ENT ENT ED: Denies discharge from eye(s), rhinorrhea or sore throat Cardiovascular Cardiovascular: Reports chest pain; Denies palpitations Respiratory/Chest Respiratory/Chest: Reports dyspnea; Denies cough Gastrointestinal Gastrointestinal: Reports abdominal pain; Denies diarrhea, nausea or vomiting Genitourinary Genitourinary ED: Denies dysuria Musculoskeletal Musculoskeletal: Denies back pain or extremity pain Integumentary Denies Abrasions or rash Neurologic Neurologic: Reports weakness; Denies headache(s) Psychiatric Psychiatric: Denies anxiety or depression Allergic/Immunologic Allergic/Immunologic ED: Denies lip swelling or urticaria EXAM Physical Exam Const Vital Signs: 07/10/23 16:39 07/10/23 16:56 07/10/23 16:57 Temperature 96 F L 97.4 F L Temperature Source Temporal Temporal Pulse Rate 109 H 97 Respiratory Rate 18 19 H Respiratory Effort Normal Non-Labored Respiratory Pattern Tachypnea Blood Pressure 165/121 H 155/112 H Blood Pressure Mean 135 126 Pulse Ox 100 98 Oxygen Delivery Method Room Air Room Air Positive well nourished and well developed General Appearance ED: well developed HEENT Reports normocephalic, head/scalp atraumatic and dry mucous membranes Mouth ED: Yes dry mucous membranes Mouth: dry mucous membranes Eyes PERRL and EOMs intact bilaterally Neck supple Chest Wall inspection of chest normal and palpation of chest normal Resp clear to auscultation bilaterally Resp Narrative: Mild tachypnea. Cardio regular rate and regular rhythm GI non-tender Auscultation: hypoactive bowel sounds Palpation: soft Extremity normal to inspection Extremity Narrative: No significant lower extremity edema. Neuro Sensorium / Orientation: alert Psych mental status grossly normal Skin no rashes or lesions noted MDM MDM MDM Narrative Medical decision making narrative: Patient placed on clinical laboratory medical director. EKG obtained to evaluate for cardiac arrhythmia/ischemia. Chest x-ray obtained to evaluate for acute lung pathology, cardiac size, or mediastinal abnormality. Labwork obtained to evaluate for leukocytosis, anemia, and electrolyte derangement. IV fluids initiated. History & Record Review Discussion w/independent historian: Patient and Friend Lab Data Attestation: I reviewed the patient's lab results. Labs: Laboratory Results - last 24 hr 07/10/23 17:27 WBC 7.2 RBC 4.04 L Hgb 11.4 L Hct 37.9 L MCV 93.8 MCH 28.2 MCHC 30.1 L RDW Std Deviation 47.[address] Coeff of Ave 13.9 Plt Count 227 MPV 12.2 H Immature Gran % (Auto) 0.300 Neut % (Auto) 78.3 H Lymph % (Auto) 12.2 L [place] % (Auto) 5.7 Eos % (Auto) 2.8 Baso % (Auto) 0.7 Absolute Neuts (auto) 5.7 Absolute Lymphs (auto) 0.88 Nucleated RBC % 0 D-Dimer Quant (PE/DVT) 1.93 H* Sodium 141 Potassium 4.1 Chloride 113 H Carbon Dioxide 22.0 Anion Gap 6 BUN 30 H Creatinine 3.34 H Estim Creat Clear Calc 25.17 Est GFR (MDRD) Af Amer 24 L Est GFR (MDRD) Non-Af 20 L BUN/Creatinine Ratio 9.0 L Glucose 156 H Calcium 8.1 L Total Bilirubin 0.60 Direct Bilirubin 0.24 AST 16 ALT 26 Alkaline Phosphatase 121 H Troponin I High Sens 29 Total Protein 6.8 Albumin 3.5 Globulin 3.3 Lipase 15 Acetone Level NEGATIVE Radiography Chest X-Ray - ED: 1 View, Read by ED Physician and Chronic Changes Diagnostic Testing: Clinical Impression(s) from Imaging Studies Chest X-Ray 07/10/23 17:40 IMPRESSION: Perihilar interstitial prominence. Electronically Signed: Jono Kemp DO at 18:12 EDT , EKG Initial EKG: Attestation: I personally reviewed and interpreted this EKG as follows: Interpretation: Sinus Rhythm (Sinus at 98 with no acute ischemia. QTc is 497.) Treatment and Re-Evaluation :: CBC was normal white count 7.2 with a hemoglobin of 11.4. 78% neutrophils noted. Chemistry studies reveal normal potassium at 4.1. BUN is 30 and creatinine is 3.34. This does appear consistent with his prior values. His glucose is 156 and his serum acetone is negative. LFTs are remarkable only for an alk phos of 121. His troponin is 29. His D-dimer is elevated at 1.93. Unfortunate unable to get a CTA of his chest given his elevated creatinine. His portable chest x-ray reveals chronic changes with scarring or small effusion noted at the left base. Radiology interpretation is reviewed and feels that he has perihilar interstitial prominence. Patient is stable on room air at this time. I will speak with hospitalist regarding observation for VQ scan given his elevated D-dimer but inability to perform a CTA. Discharge Plan Triage Chief Complaint: General Illness ED Provider: Noy Umanzor Dx/Rx/DC Orders Clinical Impression: Dyspnea, D-dimer, elevated, Chronic renal failure Prescriptions: No Action acetaminophen 325 mg tablet 650 mg PO Q4H PRN (Reason: Pain) amlodipine 10 mg tablet 10 mg PO DAILY mirtazapine 15 mg tablet 15 mg PO QHS cholecalciferol (vitamin D3) 1,250 mcg (50,000 unit) capsule 1,250 mcg PO FR nitroglycerin 0.4 mg Tablet, Sublingual 0.4 mg sublingual Q5M PRN (Reason: Chest Pain) Qty: 0 0RF atorvastatin 40 mg tablet 40 mg PO QHS carvedilol 25 mg tablet 25 mg PO BID isosorbide mononitrate 30 mg tablet extended release 24 hr 30 mg PO DAILY clopidogrel 75 mg tablet 75 mg PO DAILY albuterol sulfate 2.5 mg /3 mL (0.083 %) Solution For Nebulization 2.5 mg inhalation Q2H PRN PRN (Reason: Dyspnea, wheezing) Qty: 0 0RF multivitamin Tablet 1 tab PO QHS furosemide 40 mg tablet 40 mg PO DAILY sennosides-docusate sodium [Stool Softener-Stimulant Laxat] 8.6-50 mg tablet 2 tab PO BID PRN (Reason: Constipation) aspirin 81 mg tablet,delayed release (DR/EC) 81 mg PO DAILY Patient Comments: PT STATES HE IS NOT TAKING ferrous sulfate [FeroSul] 325 mg (65 mg iron) tablet 325 mg PO QODAY ondansetron 4 mg tablet,disintegrating 4 mg PO Q8H PRN (Reason: Nausea) Primary Care Provider: Rosario Arroyo Referrals: Rosario Arroyo DO [Primary Care Provider] - Disposition Disposition: Acute Care Hospital [facility]
[2023-07-10] MEDS: 0.9% Normal Saline (1000mL) 1,000 ML 150 ML IV (17:36)
--- NOTE | 2023-07-10 17:40 | RAD_ITS ---
INDICATION: sob EXAMINATION/TECHNIQUE: X-RAY - XR Chest 1 View COMPARISON: January 16, 2023 FINDINGS: LINES/DEVICES: None. LUNGS: No consolidation, edema or effusion. Perihilar interstitial prominence. No pneumothorax. MEDIASTINUM AND CARDIOVASCULAR STRUCTURES: Cardiac silhouette not enlarged. Calcified aortic arch. Central airways and mediastinal contour are unremarkable. BONES AND SOFT TISSUES: Degenerative vertebral changes. RAD/Chest 1 View (Portable) IMPRESSION: Perihilar interstitial prominence. Electronically Signed: Jono Kemp DO at 18:12 EDT ,
[2023-07-10 17:47] LABS: Absolute Lymphocyte Count 0.88 X10^3/uL (0.83-4.51); Absolute Neutrophil Count 5.7 X10^3/uL (2.0-7.7); Basophil# 0.05 X10^3/uL; Basophil% 0.7 % (0-1); Eosinophils% 2.8 % (0-5); Hematocrit 37.9 % (40-54); Hemoglobin 11.4 g/dL (13.0-16.5); Lymphocyte # 0.88 X10^3/ul (0.83-4.51); Lymphocyte % 12.2 % (19-41); Mean Corp Hgb Conc 30.1 g/dL (32-36); Mean Corpuscular Hgb 28.2 pg (27.0-32.0); Mean Corpuscular Volume 93.8 fL (80-94); Mean Platelet Vol. 12.2 fl (6.2-12.0); Monocyte# 0.41 X10^3/uL; Monocyte% 5.7 % (0-10); NRBC Flagged by Analyzer 0 % (0-5); Neutrophil # 5.66 X10^3/uL (2.7-7.7); Neutrophil % 78.3 % (47-70); Platelet Count 227 K/mm3 (150-450); RBC Distribution Width CV 13.9 % (11.6-14.6); RBC Distribution Width SD 47.9 fl (35.1-43.9); Red Blood Count 4.04 M/mm3 (4.6-6.2); White Blood Count 7.2 K/mm3 (4.4-11.0)
[2023-07-10 18:10] LABS: D-Dimer Quantitative (DVT/PE) 1.93 FEU/ug/m (0.27-0.49)
[2023-07-10 18:16] LABS: AST(SGOT) 16 U/L (15-37); Alanine Aminotransfer ALT/SGPT 26 U/L (16-61); Albumin, Serum 3.5 g/dL (3.2-5.0); Alkaline Phosphatase 121 U/L (45-117); Anion Gap 6 (5-15); BUN 30 mg/dL (7-18); Bilirubin, Direct 0.24 mg/dL (0.00-0.30); Calcium,Total 8.1 mg/dL (8.5-10.1); Chloride 113 mmol/L (98-107); Creatinine, Serum 3.34 mg/dL (0.70-1.30); EST Glomerular Filtration Rate 20 mL/min (>60); Est Glom Filt Rate - Afr Amer 24 mL/min (>60); Estimated Creatinine Clearance 25.17 ml/min; Globulin 3.3 g/dL (2.2-4.2); Glucose 156 mg/dL (74-106); Lipase 15 U/L (13-75); Potassium 4.1 mmol/L (3.5-5.1); Protein, Total 6.8 g/dL (6.4-8.2); Sodium Level 141 mmol/L (136-145); Troponin-I HS 29 pg/mL (3.0-78.0)
--- NOTE | 2023-07-10 18:50 | CT_ITS ---
INDICATION: sob EXAMINATION: CT CHEST WITHOUT CONTRAST - CT Chest W/O Contrast Injection TECHNIQUE: Helically acquired images were obtained of the chest. A radiation dose optimization technique was used for this scan. IV Contrast dosage and agent: None. RADIATION DOSAGE (If Supplied By Facility): CTDIvol = ( 13.33 ) mGy, DLP = ( 503.15 ) mGycm COMPARISON: FINDINGS: LUNGS, PLEURA AND LARGE AIRWAYS: Bilateral moderate pleural effusions with basilar atelectasis. Bilateral mild patchy groundglass densities and interstitial prominence. Bilateral calcified granulomas. No pneumothorax. THYROID: No thyroid lesions. HEART AND PERICARDIUM: Heart size is normal. No pericardial effusion. CORONARY ARTERIES: Coronary artery calcification VESSELS: Thoracic aorta is not dilated. MEDIASTINUM AND ANALY: Mild mediastinal adenopathy. Esophagus is unremarkable. No hiatal hernia. UPPER ABDOMEN: Mild perihepatic fluid. BONES: Posterior spurring at T7-8 protruding into the spinal canal. CT/Chest without Contrast IMPRESSION: Bilateral moderate pleural effusions with basilar atelectasis. Bilateral mild patchy groundglass densities and interstitial prominence. Bilateral calcified granulomas. Mild mediastinal adenopathy. Mild perihepatic fluid. Electronically Signed: Jono Kemp DO at 19:52 EDT Reading Location ID and State: [facility] / [place] Tel [phone], Service support ,
[2023-07-10 19:00] VITALS: BP 158/107; PULSE 88; RESP 19; TEMP 36.2; O2SAT 95
--- NOTE | 2023-07-10 19:07 | HP.PCM.HOS_ITS ---
HPI - General General Date of Admission: 07/10/23 Date of Service: 07/10/23 Chief Complaint: Shortness of breath HPI Narrative KALYANI LIVINGSTON, is a 62 M who presented to the emergency department at [facility] on 07/10/2023 with worsening shortness of breath. Patient has history of chronic chest pain, shortness of breath and chronic abdominal pain. All of this has been going on for some time and has not changed significantly however he reported within the last 2 weeks he started noticing that he was more short of breath. A friend who presented with him reported that she took him to the store last and he seemed to be breathing heavy but reported he was feeling okay. He called her today and asked her to come and bring her to the hospital as he was feeling more short of breath. He denied any fever or chills. He denied any cough. He has had no congestion. He does not watch his salt or fluid intake and is unclear if he is consistently taking his medications at home. Vital signs on presentation showed temperature of 97.4, heart rate 97, blood pressure was initially 155/112, respirate 19 oxygen saturations are 98% on room air. His CBC is overall unremarkable. His chemistry panel shows normal elect rolytes for the most part however his BUN is 30 and his serum creatinine is 3.34 which is slightly above his baseline of 2.5-3. His glucose was 156. His LFTs are unremarkable. Troponin was 29. Lipase was unremarkable. An acetone level was obtained and was unremarkable. Chest x-ray showed perihilar interstitial prominence but was otherwise unremarkable. His EKG was normal sinus rhythm with no ST-T wave changes concerning for acute ischemia and normal intervals. A D- dimer was obtained and was found to be 1.93 however I am unclear the significance of this with his CKD. With his previous history of heart failure I requested a BNP be performed and it was found to be 1672.9. I also ordered a CT of the chest without contrast and this shows large bilateral pleural effusions with bibasilar atelectasis and groundglass densities with mild interstitial prominence and bilateral calcified granulomas as well as mild mediastinal lymphadenopathy and mild perihepatic fluid. I highly suspect most of his symptoms are related to decompensated heart failure and he will be admitted to the telemetry floor for treatment. [facility] Medical History Acute cerebrovascular accident of cerebellum Ankle fracture, left Atherosclerotic heart disease of [place] coronary artery without angina pectoris CKD (chronic kidney disease), stage IV Essential hypertension History of left heart catheterization (LHC) (~02/26/19) Ischemic dilated cardiomyopathy Neck fracture PFO (patent foramen ovale) Presence of stent in coronary artery (~02/26/19) Pulmonary hypertension Pulmonary hypertension assoc with unclear multi-factorial mechanisms Pure hypercholesterolemia Smokeless tobacco use Tobacco chew use Uncontrolled type 2 diabetes mellitus Home Medications nitroglycerin 0.4 mg sublingual tablet 0.4 mg sublingual Q5M PRN Chest Pain #0 tabs 03/07/22 [Rx Last Taken Unknown] acetaminophen 325 mg tablet 650 mg PO Q4H PRN Pain 06/05/22 [History Last Taken Unknown] amlodipine 10 mg tablet 10 mg PO DAILY BLOOD PRESSURE 06/05/22 [History Last Taken 07/10/23] cholecalciferol (vitamin D3) 1,250 mcg (50,000 unit) capsule 1,250 mcg PO FR SUPPLEMENT 06/05/22 [History Last Taken 01/12/23] mirtazapine 15 mg tablet 15 mg PO QHS INSOMNIA 06/05/22 [History Last Taken 01/15/23 20:00] atorvastatin 40 mg tablet 40 mg PO QHS CHOLESTEROL 12/20/22 [History Last Taken 07/09/23] carvedilol 25 mg tablet 25 mg PO BID HEART 12/20/22 [History Last Taken 01/16/23 09:00] clopidogrel 75 mg tablet 75 mg PO DAILY BLOOD THINNER 12/20/22 [History Last Taken 01/16/23 09:00] isosorbide mononitrate 30 mg tablet,extended release 24 hr 30 mg PO DAILY HEART 12/20/22 [History Last Taken 01/16/23 09:00] albuterol sulfate 2.5 mg/3 mL (0.083 %) solution for nebulization 2.5 mg (3 mL) inhalation Q2H PRN PRN Dyspnea, wheezing #0 mL 12/27/22 [Rx Last Taken Unknown] aspirin 81 mg tablet,delayed release 81 mg PO DAILY HEART HEALTH 01/16/23 [History Last Taken 01/16/23] ferrous sulfate 325 mg (65 mg iron) tablet (FeroSul) 325 mg PO QODAY SUPPLEMENT 01/16/23 [History Last Taken 01/16/23 09:00] furosemide 40 mg tablet 40 mg PO DAILY FLUID 01/16/23 [History Last Taken 01/16/23 09:00] multivitamin 1 tab PO QHS HEALTH MAINTENANCE 01/16/23 [History Last Taken 01/15/23] ondansetron 4 mg disintegrating tablet 4 mg PO Q8H PRN Nausea 01/16/23 [History Last Taken Unknown] sennosides 8.6 mg-docusate sodium 50 mg tablet (Stool Softener-Stimulant Laxative) 2 tab PO BID PRN Constipation 01/16/23 [History Last Taken Unknown] Allergy/AdvReac Type Severity Reaction Status Date / Time ampicillin Allergy Swelling Verified 07/10/23 16:41 fish derived Allergy Swelling Verified 07/10/23 16:41 [seafood - derived] ibuprofen [From Motrin] Allergy Swelling Verified 07/10/23 16:41 shellfish derived Allergy Swelling Verified 07/10/23 16:41 [seafood - shellfish] Family History Mother Heart disease Hypertension Father Heart disease Hypertension Surgical History H/O bilateral hip replacements Presence of coronary angioplasty implant and graft (~02/26/19) Social History household members: none Smoking Status: Current every day smoker tobacco type: smokeless tobacco Smokeless tobacco user: chewing tobacco alcohol intake: never substance use type: does not use caffeine: Yes ROS Constitutional Constitutional: Reports fatigue, malaise and weakness; Denies anorexia, change in weight, chills, fever(s), night sweats or other Eyes Eyes: Denies blurry vision, change in eye color, change in vision, discharge from eye(s), double vision, erythema, eye pain, loss of vision or other ENT HEENT: Denies abnormal hearing, dysphagia, ear pain, epistaxis, headache(s), hearing loss, nasal congestion, nasal discharge, post nasal drip, sinus pressure, sore throat or other Cardiovascular Cardiovascular: Reports chest pain, dyspnea on exertion and orthopnea; Denies claudication, edema, lightheadedness, palpitations, paroxysmal nocturnal dyspnea, rapid heart rate, syncope or other Respiratory/Chest Respiratory/Chest: Reports shortness of breath at rest and shortness of breath with exertion; Denies cough, dyspnea, excessive phlegm production, hemoptysis, productive cough, wheezing or other Gastrointestinal Gastrointestinal: Denies abdominal pain, coffee ground emesis, constipation, diarrhea, dyspepsia, hematemesis, hematochezia, loose stools, melena, nausea, vomiting or other Genitourinary Genitourinary: Denies burning urination, difficulty urinating, dysuria, hematuria, nocturia, urinary frequency, urinary hesitancy, urinary incontinence, urinary urgency or other Musculoskeletal Musculoskeletal: Reports back pain, joint pain and joint stiffness; Denies arthralgias, joint swelling, myalgias, neck pain or other Neurologic Neurologic: Denies abnormal gait, abnormal speech, confusion, disequilibrium, dizziness, focal weakness, headache(s), numbness, paresthesias, seizure-like activity, seizures, syncope, tingling, tremor(s) or other Psychiatric Psychiatric: Denies anxiety, depression, homicidal ideation, suicidal ideation or other Endocrine Endocrinology: Denies change in body appearance, cold intolerance, excessive sweating, heat intolerance, polydipsia, polyuria or other Hematologic/Lymphatic Hematologic/Lymphatic: Denies anemia, easy bleeding, easy bruising, lymphadeno lucrecia or other Allergic/Immunologic Allergic/Immunologic: Denies rhinitis, hives, eczemia, asthma or other Vital Signs Vital Signs Vital Signs: 07/10/23 16:39 07/10/23 16:56 07/10/23 16:57 Temperature 96 F L 97.4 F L Temperature Source Temporal Temporal Pulse Rate 109 H 97 Respiratory Rate 18 19 H Respiratory Effort Normal Non-Labored Respiratory Pattern Tachypnea Blood Pressure 165/121 H 155/112 H Blood Pressure Mean 135 126 Pulse Ox 100 98 Oxygen Delivery Method Room Air Room Air 07/10/23 19:00 Temperature 97.2 F L Temperature Source Oral Pulse Rate 88 Respiratory Rate 19 H Respiratory Effort Respiratory Pattern Blood Pressure 158/107 H Blood Pressure Mean 124 Pulse Ox 95 Oxygen Delivery Method Room Air Weight Weight: 82.1 kg Body Mass Index (BMI) 24.5 Physical Exam Const alert, oriented x3, no apparent distress and average body habitus; Negative for healthy appearing or well nourished Constitutional Narrative: Upper middle-aged age white male who appears much older than stated age sitting up in bed, appears comfortable and nontoxic, currently on room air, appears chronically ill General Appearance: cooperative HEENT normocephalic, head/scalp atraumatic, hearing grossly normal bilaterally and moist oral mucous membranes HEENT Narrative: Incision is poor, Mallampati is 2, no thrush, patient with perioral tobacco stains Eyes PERRL, EOMs intact bilaterally and conjunctivae normal Eyes Narrative: No scleral icterus Neck no lymphadenopathy, supple, No no JVD and no carotid bruits Neck Narrative: Positive JVD bilaterally Resp no retractions, no use of accessory muscles and No clear to auscultation bilaterally Resp Narrative: Diminished at bilateral bases with inspiratory crackles, appears mildly tachypneic Auscultation: crackles; Negative for rhonchi or wheezes Cardio regular rate, regular rhythm, S1 normal heart sound, S2 normal heart sound, no murmurs, no rub, no gallops, no clicks and no JVD GI soft to palpation and non-tender GI Narrative: Mild distention with normal bowel sounds Extremity no clubbing, cyanosis or edema Extremity Narrative: Decreased lean muscle mass Neuro oriented x3, CN's II-XII intact bilaterally, moves all extremities and no focal motor deficits Neuro Narrative: Generalized weakness noted and patient does have difficulty with bed mobility at my evaluation, is mildly garbled from previous stroke Speech: Negative for speech normal Psych Psych Narrative: Affect is flat at however eye contact is good and patient interacts appropri ately Results Lab / Micro Data Attestation: I reviewed the patient's lab results. 07/10/23 17:27 07/10/23 17:27 Labs: Laboratory Results - last 24 hr 07/10/23 17:27: WBC 7.2, RBC 4.04 L, Hgb 11.4 L, Hct 37.9 L, MCV 93.8, MCH 28.2, MCHC 30.1 L, RDW Std Deviation 47.9 H, RDW Coeff of Ave 13.9, Plt Count 227, MPV 12.2 H, Immature Gran % (Auto) 0.300, Neut % (Auto) 78.3 H, Lymph % (Auto) 12.2 L, [place] % (Auto) 5.7, Eos % (Auto) 2.8, Baso % (Auto) 0.7, Absolute Neuts (auto) 5.7, Absolute Lymphs (auto) 0.88, Nucleated RBC % 0, D-Dimer Quant (PE/DVT) 1.93 H*, Sodium 141, Potassium 4.1, Chloride 113 H, Carbon Dioxide 22.0, Anion Gap 6, BUN 30 H, Creatinine 3.34 H, Estim Creat Clear Calc 25.17, Est GFR (MDRD) Af Laura r 24 L, Est GFR (MDRD) Non-Af 20 L, BUN/Creatinine Ratio 9.0 L, Glucose 156 H, Calcium 8.1 L, Total Bilirubin 0.60, Direct Bilirubin 0.24, AST 16, ALT 26, Alkaline Phosphatase 121 H, Troponin I High Sens 29, Total Protein 6.8, Albumin 3.5, Globulin 3.3, Lipase 15, Acetone Level NEGATIVE Radiology Impression Chest X-Ray 07/10/23 17:40 IMPRESSION: Perihilar interstitial prominence. Electronically Signed: Jono Kemp DO at 18:12 EDT Reading Location ID and State: [facility] / [place] Tel [phone], Service support , Assessment & Plan Assessment/Plan (1) RASHAWN (acute kidney injury): (2) SOB (shortness of breath): (3) D-dimer, elevated: (4) Bilateral pleural effusion: PLAN: Plan Acute on chronic heart failure with reduced ejection fraction -Patient is not compliant with salt restriction or fluid restriction or taking his medications -Has large bilateral pleural effusions likely related to heart failure -We will start Lasix 40 mg IV push twice daily however may need to transition to Lasix drip depending on diuresis -We will check echocardiogram -Last echocardiogram from 12/22/2022 showed moderately severe left global ventricular dysfunction with an EF of 35%, severely dilated right ventricle with severe biatrial enlargement, severe tricuspid valve insufficiency, pulmonary artery systolic pressure of 90 mmHg and moderate mitral valve insufficiency -Fluid restriction to 1500 cc daily -Salt restricted diet -Daily weights -We will cycle cardiac enzymes Shortness of breath without hypoxia -Likely multifactorial with heart failure and bilateral pleural effusions -Not currently oxygen dependent -Monitor clinically D-dimer elevation -D-dimer was 1.93 in the setting of renal failure -Highly doubtful for PE however has history of pulmonary hypertension -Unable to check V/Q at this time due to significant bilateral pleural effusions -Unable to obtain CTA of the chest due to chronic renal disease -We will start heparin drip with bolus for now and monitor clinically if clinically improved with diuresis may be able to obtain VQ scan or discontinue as likelihood for the elevation of this is related to his renal dysfunction Bilateral large pleural effusions -Anticipate this is related to heart failure -Hoping this improves with diuresis -We will hold aspirin and Plavix in case he does need a thoracentesis -Continue to monitor and pursue thoracentesis if this does not improve with diuresis -These do appear to be larger than noted on his CT of abdomen pelvis done on 11/17/2022 RASHAWN on CKD stage IV -Patient has not followed up as an outpatient with nephrology -Avoid nephrotoxins as able -Suspect cardiorenal syndrome and hoping this improves with diuresis -Home diuretics -IV diuretics ordered however may need to transition to Lasix drip -Nephrology consultation Debility -PT/OT consultation -Case management/social work consultation History of ischemic cardiomyopathy -Last documented EF was 35% -See treatment as above -Continue carvedilol -Continue isosorbide mononitrate -Will need cardiology follow-up after discharge Pulmonary artery hypertension -Suspect who group 2 -Diuresis as above CAD/HTN/HPL -Hold aspirin and Plavix in case patient needs thoracentesis -PTCA/REYNA to Diagonal 1 02/26/19 -Continue amlodipine, Coreg, isosorbide mononitrate -Continue home atorvastatin -Patient has not followed up with cardiology since 06/05/2022 History of stroke -Aspirin and Plavix on hold for now due to possible need for thoracentesis -PT/OT consultation History of PFO -Monitor Tobacco abuse -Patient utilizes smokeless tobacco -Nicotine replacement therapy as available DVT prophylaxis -Heparin drip for now until we can clarify what to do with his elevated D-dimer CODE STATUS -DNR CCA with no intubation as per discussion on admission Charges/Coding Visit Charges Inpatient E&M: 58763 Init Hosp L3
[2023-07-10 19:36] LABS: BNP,B-Type NATRIURETIC PEPTIDE 1672.9 pg/mL (0-100)
--- NOTE | 2023-07-10 19:51 | ECHOD_ITS ---
Reason For Study: CONGESTIVE HEART FAILURE Procedure This was a 2D Doppler, Color Flow transthoracic echocardiogram. Myocardial strain analysis was performed in this exam to aid in the assessment of cardiac function. Exam performed portable in patient room. Left Ventricle Normal size and thickness. Severe global left ventricular systolic dysfunction. The left ventricular ejection fraction is 25 %. Stage 3 diastolic dysfunction. Right Ventricle Normal RV size. Moderate global right ventricular systolic dysfunction. Atria There is severe biatrial dilatation. Mitral Valve Mild-Moderate (1-2+) mitral valve insufficiency. Tricuspid Valve Moderately severe (3+) tricuspid valve insufficiency. Right ventricular systolic pressure estimated to be 61 mmHg. Severe pulmonary hypertension. Aortic Valve Aortic sclerosis, no stenosis. Pulmonic Valve The pulmonic valve is not well visualized. Great Vessels Mildly dilated aortic root. Pericardium/Pleural No pericardial effusion. Moderate size left pleural effusion. MMode/2D Measurements & Calculations LVIDd: 4.4 cm IVSd: 1.1 cm LVOT diam: 1.9 cm RVDd: 4.5 cm LVPWd: 0.85 cm LVOT area: 2.8 cm2 Ao root diam: 3.7 cm LAV(MOD-bp): 75.1 ml LVAd ap4: 31.1 cm2 LAV(MOD-bp) Indexed: 36.8 ml/m2 LVLd ap4: 8.7 cm LAV(MOD-sp2): 70.6 ml EDV(MOD-sp4): 88.0 ml LAV(MOD-sp4): 73.5 ml EDV(sp4-el): 94.0 ml LVAs ap4: 25.3 cm2 LVLs ap4: 8.0 cm ESV(MOD-sp4): 65.0 ml ESV(sp4-el): 67.9 ml EF(MOD-sp4): 26.2 % EF(sp4-el): 27.8 % LVAd ap2: 34.5 cm2 SV(MOD-sp4): 23.0 ml SV(MOD-sp2): 26.9 ml LVLd ap2: 8.8 cm EDV(MOD-sp2): 109.7 ml EDV(sp2-el): 114.9 ml LVAs ap2: 28.7 cm2 LVLs ap2: 8.0 cm ESV(MOD-sp2): 82.7 ml ESV(sp2-el): 87.8 ml EF(MOD-sp2): 24.6 % SV(sp4-el): 26.2 ml LA A4 area: 25.3 cm2 LA dimension(2D): 4.4 cm RA A4 area: 28.6 cm2 TAPSE: 1.2 cm Time Measurements MV dec time: 0.18 sec Doppler Measurements & Calculations MV E max brendan: 103.8 cm/sec Lat Peak E' Brendan: 8.5 cm/sec Med Peak E' Brendan: 7.5 cm/sec MV A max brendan: 37.4 cm/sec E/E' lat: 12.3 E/E' med: 13.8 MV E/A: 2.8 MV dec slope: 573.6 cm/sec2 Ao V2 max: 94.2 cm/sec LV V1 max: 72.1 cm/sec Ao max P.5 mmHg LV V1 max P.1 mmHg Ao V2 mean: 71.2 cm/sec LV V1 mean P.2 mmHg Ao mean P.2 mmHg LV V1 mean: 52.6 cm/sec Ao V2 VTI: 17.5 cm LV V1 VTI: 12.2 cm AV (velocity ratio): 0.70 KENDRA(I,D): 1.9 cm2 KENDRA(V,D): 2.1 cm2 SV(LVOT): 34.1 ml PA V2 max: 50.9 cm/sec TR max brendan: 338.6 cm/sec PA max PG (full): 0.07 mmHg TR max P.8 mmHg ECHO/Echo Complete Interpretation Summary Severe global left ventricular systolic dysfunction. The left ventricular ejection fraction is 25 %. Stage 3 diastolic dysfunction. Moderate global right ventricular systolic dysfunction. There is severe biatrial dilatation. Mild-Moderate (1-2+) mitral valve insufficiency. Moderately severe (3+) tricuspid valve insufficiency. Right ventricular systolic pressure estimated to be 61 mmHg. Severe pulmonary hypertension. Mildly dilated aortic root. Moderate size left pleural effusion. Ordering Physician: Keke Christianson Referring Physician: Rosario Arroyo Performed By: Inna Urbina RDCS
[2023-07-10 19:52] VITALS: BP 151/120; PULSE 90; RESP 22; TEMP 36.6; O2SAT 100; BMI 25.0
[2023-07-10 21:28] LABS: Partial Thromboplast Time 31.9 Seconds (24.1-36.2)
[2023-07-10 21:35] LABS: Troponin-I HS 34 pg/mL (3.0-78.0)
[2023-07-10 21:44] VITALS: BP 139/104; PULSE 91; RESP 20; TEMP 36.6; O2SAT 100
[2023-07-10] MEDS: Heparin Injection (Vial) 5,000 UNIT/ML VIAL 6000 UNIT IV (21:50)
[2023-07-10] MEDS: HEPARIN/D5w 25,000 UNITS 25,000 UNITS/250 ML IV.SOLN. 12 UNITS CONT INF (21:50)
[2023-07-10] MEDS: 0.9% Saline Lock 10 ML Syringe IV (21:51)
[2023-07-10] MEDS: Atorvastatin Calcium 40 MG Tablet PO (21:55)
[2023-07-10] MEDS: Mirtazapine 15 MG Tablet PO (21:55)
[2023-07-10] MEDS: Carvedilol 25 MG Tablet PO (21:55)
[2023-07-10 22:16] LABS: Hemoglobin A1c 5.4 % (3.8-5.6)
[2023-07-10 23:09] LABS: Bedside Glucose 98 mg/dL (74-106)
[2023-07-10 23:55] LABS: Troponin-I HS 30 pg/mL (3.0-78.0)
[2023-07-11 03:01] VITALS: BP 142/106; PULSE 74; RESP 18; TEMP 36.6; O2SAT 96
[2023-07-11] MEDS: Ondansetron 4 MG/2 ML Vial IV ×2 (03:40→20:39)
[2023-07-11 04:02] LABS: Absolute Lymphocyte Count 0.85 X10^3/uL (0.83-4.51); Absolute Neutrophil Count 4.9 X10^3/uL (2.0-7.7); Basophil# 0.06 X10^3/uL; Eosinophil# 0.16 X10^3/uL; Eosinophils% 2.5 % (0-5); Hemoglobin 11.1 g/dL (13.0-16.5); Lymphocyte # 0.85 X10^3/ul (0.83-4.51); Lymphocyte % 13.5 % (19-41); Mean Corp Hgb Conc 30.8 g/dL (32-36); Mean Corpuscular Hgb 28.5 pg (27.0-32.0); Mean Corpuscular Volume 92.3 fL (80-94); Mean Platelet Vol. 11.6 fl (6.2-12.0); Monocyte# 0.33 X10^3/uL; Monocyte% 5.3 % (0-10); NRBC Flagged by Analyzer 0 % (0-5); Neutrophil # 4.86 X10^3/uL (2.7-7.7); Neutrophil % 77.4 % (47-70); Platelet Count 215 K/mm3 (150-450); RBC Distribution Width CV 14.1 % (11.6-14.6); RBC Distribution Width SD 47.6 fl (35.1-43.9); White Blood Count 6.3 K/mm3 (4.4-11.0)
[2023-07-11 04:17] LABS: Partial Thromboplast Time 213.7 Seconds (24.1-36.2)
[2023-07-11 04:35] LABS: ALB/GLOB Ratio 1.1 RATIO (0.9-2.4); AST(SGOT) 18 U/L (15-37); Alanine Aminotransfer ALT/SGPT 25 U/L (16-61); Albumin, Serum 3.3 g/dL (3.2-5.0); Alkaline Phosphatase 111 U/L (45-117); Anion Gap 6 (5-15); BUN 30 mg/dL (7-18); BUN/Creat Ratio 9.3 RATIO (10-20); Calcium,Total 8.1 mg/dL (8.5-10.1); Chloride 114 mmol/L (98-107); Creatinine, Serum 3.22 mg/dL (0.70-1.30); EST Glomerular Filtration Rate 21 mL/min (>60); Est Glom Filt Rate - Afr Amer 25 mL/min (>60); Estimated Creatinine Clearance 26.11 ml/min; Globulin 2.9 g/dL (2.2-4.2); Glucose 131 mg/dL (74-106); Phosphorus 3.5 mg/dL (2.5-4.9); Potassium 4.2 mmol/L (3.5-5.1); Protein, Total 6.2 g/dL (6.4-8.2); Sodium Level 143 mmol/L (136-145); Thyroid Stim Hormone (TSH) 1.91 uIU/mL (0.358-3.74)
[2023-07-11 05:12] LABS: Mucous, Urine 0 SEEN /hpf (<or=2+); Red Blood Cells-Urine 0 SEEN /hpf (0-5); Squamous Epithelial Cells - UA 0 SEEN /hpf (0-5); White Blood Cells 0 SEEN /hpf (0-5)
[2023-07-11 05:18] LABS: Color, Urine Yellow (Yellow); Glucose, Dipstick Normal (Normal); Ketone-Dipstick Negative (Negative); Leukocyte Esterase-Dipstick Negative /ul (Negative); Nitrite-Dipstick Negative (Negative); Occult Blood-Urine 10 /ul (Negative); Protein-Dipstick 500 mg/dl (Negative); Specific Gravity, Urine 1.025 (1.002-1.030); Urine Bilirubin Dipstick Negative (Negative); Urine Clarity Clear (Clear); Urine Urobilinogen 1 mg/dl (Normal)
[2023-07-11 05:31] LABS: Bacteria 1+ /hpf (None Seen)
[2023-07-11 06:36] LABS: Bedside Glucose 113 mg/dL (74-106)
--- NOTE | 2023-07-11 07:34 | PCM.PN.HOSP ---
Reason for Visit Reason for Visit: Diagnoses Pleural effusion, not elsewhere classified (07/10/23) Acute kidney failure, unspecified (07/10/23) Shortness of breath (07/10/23) Other specified abnormal findings of blood chemistry (07/10/23) Subjective Subjective Patient reports feeling the same as yesterday but upset that he does not get to go home yet though he remains on IV diuresis and a heparin drip Objective Data Objective Data Vital Signs: Vital Signs Temp Pulse Resp BP Pulse Ox O2 Del Method 97.8 F 74 18 142/106 H 96 Room Air 07/11/23 03:01 07/11/23 03:01 07/11/23 03:01 07/11/23 03:01 07/11/23 03:01 07/11/23 03:02 Oxygen Delivery Method Room Air Weight: 83.7 kg Body Mass Index (BMI) 25.0 Intake & Output: Intake and Output for Last 24 Hours 07/09/23 07/10/23 07/11/23 23:59 23:59 23:59 Intake Total 310 / 310 77.6 / 77.6 Output Total 300 / 300 Balance 310 / 310 -222.4 / -222.4 Lab / Micro Data 07/11/23 03:55 07/11/23 03:55 Labs: Laboratory Results - last 24 hr 07/10/23 17:27: WBC 7.2, RBC 4.04 L, Hgb 11.4 L, Hct 37.9 L, MCV 93.8, MCH 28.2, MCHC 30.1 L, RDW Std Deviation 47.9 H, RDW Coeff of Ave 13.9, Plt Count 227, MPV 12.2 H, Immature Gran % (Auto) 0.300, Neut % (Auto) 78.3 H, Lymph % (Auto) 12.2 L, [place] % (Auto) 5.7, Eos % (Auto) 2.8, Baso % (Auto) 0.7, Absolute Neuts (auto) 5.7, Absolute Lymphs (auto) 0.88, Nucleated RBC % 0, APTT 31.9, D-Dimer Quant (PE/DVT) 1.93 H*, Sodium 141, Potassium 4.1, Chloride 113 H, Carbon Dioxide 22.0, Anion Gap 6, BUN 30 H, Creatinine 3.34 H, Estim Creat Clear Calc 25.17, Est GFR (MDRD) Af Amer 24 L, Est GFR (MDRD) Non-Af 20 L, BUN/Creatinine Ratio 9.0 L, Glucose 156 H, Calcium 8.1 L, Total Bilirubin 0.60, Direct Bilirubin 0.24, AST 16, ALT 26, Alkaline Phosphatase 121 H, Troponin I High Sens 29, B-Natriuretic Peptide 1672.9 H, Total Protein 6.8, Albumin 3.5, Globulin 3.3, Lipase 15, Acetone Level NEGATIVE 07/10/23 21:00: Hemoglobin A1c 5.4, Troponin I High Sens 34 07/10/23 21:44: POC Glucose 98 07/10/23 23:21: Troponin I High Sens 30 07/11/23 03:55: WBC 6.3, RBC 3.90 L, Hgb 11.1 L, Hct 36.0 L, MCV 92.3, MCH 28.5, MCHC 30.8 L, RDW Std Deviation 47.6 H, RDW Coeff of Ave 14.1, Plt Count 215, MPV 11.6, Immature Gran % (Auto) 0.300, Neut % (Auto) 77.4 H, Lymph % (Auto) 13.5 L, [place] % (Auto) 5.3, Eos % (Auto) 2.5, Baso % (Auto) 1.0, Absolute Neuts (auto) 4.9, Absolute Lymphs (auto) 0.85, Nucleated RBC % 0, APTT 213.7 H*, Sodium 143, Potassium 4.2, Chloride 114 H, Carbon Dioxide 23.0, Anion Gap 6, BUN 30 H, Creatinine 3.22 H, Estim Creat Clear Calc 26.11, Est GFR (MDRD) Af Amer 25 L, Est GFR (MDRD) Non-Af 21 L, BUN/Creatinine Ratio 9.3 L, Glucose 131 H, Calcium 8.1 L, Phosphorus 3.5, Magnesium 2.0, Total Bilirubin 0.80, AST 18, ALT 25, Alkaline Phosphatase 111, Total Protein 6.2 L, Albumin 3.3, Globulin 2.9, Albumin/Globulin Ratio 1.1, TSH 1.91 07/11/23 05:00: Urine Color Yellow, Urine Clarity Clear, Urine pH 5.0, Ur Specific [place] 1.025, Urine Protein 500 H, Urine Glucose (UA) Normal, Urine Ketones Negative, Urine Occult Blood 10 H, Urine Nitrite Negative, Urine Bilirubin Negative, Urine Urobilinogen 1 H, Ur Leukocyte Esterase Negative, Urine RBC 0 SEEN, Urine WBC 0 SEEN, Ur Squamous Epith Cells 0 SEEN, Urine Bacteria 1+, Urine Mucus 0 SEEN 07/11/23 06:19: POC Glucose 113 H Radiography Diagnostic Testing: Radiology Impression Chest X-Ray 07/10/23 17:40 IMPRESSION: Perihilar interstitial prominence. Electronically Signed: Jono Kemp DO at 18:12 EDT , Chest CT 07/10/23 18:50 IMPRESSION: Bilateral moderate pleural effusions with basilar atelectasis. Bilateral mild patchy groundglass densities and interstitial prominence. Bilateral calcified granulomas. Mild mediastinal adenopathy. Mild perihepatic fluid. Electronically Signed: Jono Kemp DO at 19:52 EDT , Physical Exam Narrative General: Alert, no apparent distress HEENT: Atraumatic, normocephalic Eyes: Anicteric, normal conjunctiva, extraocular movements grossly intact Neck: Supple Respiratory: Diminished bilaterally,, normal respiratory effort Cardiovascular: Regular rate and rhythm GI: Soft, nontender, nondistended Extremities: No edema Musculoskeletal: Moving all extremities Neuro: No overt focal neurological deficits Skin: No rashes appreciated Psych: Somewhat slow to engage Assessment & Plan Assessment/Plan (1) RASHAWN (acute kidney injury): (2) SOB (shortness of breath): (3) D-dimer, elevated: (4) Bilateral pleural effusion: PLAN: Plan Acute on chronic heart failure with reduced ejection fraction -Patient is not compliant with salt restriction or fluid restriction or taking his medications -Has large bilateral pleural effusions likely related to heart failure -We will start Lasix 40 mg IV push twice daily however may need to transition to Lasix drip depending on diuresis -We will check echocardiogram -Last echocardiogram from 12/22/2022 showed moderately severe left global ventricular dysfunction with an EF of 35%, severely dilated right ventricle with severe biatrial enlargement, severe tricuspid valve insufficiency, pulmonary artery systolic pressure of 90 mmHg and moderate mitral valve insufficiency -Fluid restriction to 1500 cc daily -Salt restricted diet -Daily weights -We will cycle cardiac enzymes -07/11: Presented with increasing shortness of breath, had worsening kidney function felt to be cardiorenal and bilateral pleural effusions. Initially thought may be PE given D-dimer however she may have alternate causes for symptoms especially given lack of tachycardia and hypoxia and only subjective shortness of breath with extent of effusions. BNP found to be 1600. Rechecking echocardiogram, daily weights, I's and O's, continue IV Lasix Shortness of breath without hypoxia -Likely multifactorial with heart failure and bilateral pleural effusions -Not currently oxygen dependent -Monitor clinically -07/11: On heparin drip however suspect this is heart failure in nature, continue IV Lasix, will obtain lower extremity duplexes and DC heparin drip if negative D-dimer elevation -D-dimer was 1.93 in the setting of renal failure -Highly doubtful for PE however has history of pulmonary hypertension -Unable to check V/Q at this time due to significant bilateral pleural effusions -Unable to obtain CTA of the chest due to chronic renal disease -We will start heparin drip with bolus for now and monitor clinically if clinically improved with diuresis may be able to obtain VQ scan or discontinue as likelihood for the elevation of this is related to his renal dysfunction -07/11: Doubt we will be able to obtain VQ scan and unable to get CTA, will obtain lower extremity duplexes and if negative will DC heparin drip especially given this is much less likely PE with other clinical measures/picture Bilateral large pleural effusions -Anticipate this is related to heart failure -Hoping this improves with diuresis -We will hold aspirin and Plavix in case he does need a thoracentesis -Continue to monitor and pursue thoracentesis if this does not improve with diuresis -These do appear to be larger than noted on his CT of abdomen pelvis done on 11/17/2022 -07/11: Continue diuresis, do anticipate this will continue to improve. 100% or high 90s on room air without tachypnea or tachycardia RASHAWN on CKD stage IV -Patient has not followed up as an outpatient with nephrology -Avoid nephrotoxins as able -Suspect cardiorenal syndrome and hoping this improves with diuresis -Home diuretics -IV diuretics ordered however may need to transition to Lasix drip -Nephrology consultation -07/11: Very minimally improved from yesterday, may be cardiorenal but given minimal improvement with diuresis will get urine studies. Nephro consult pending, will also obtain kidney ultrasound Debility -PT/OT consultation -Case management/social work consultation History of ischemic cardiomyopathy -Last documented EF was 35% -See treatment as above -Continue carvedilol -Continue isosorbide mononitrate -Will need cardiology follow-up after discharge -07/11: As above, troponins negative on arrival, do not suspect any ACS as contributory component, echo pending Pulmonary artery hypertension -Suspect who group 2 -Diuresis as above CAD/HTN/HPL -Hold aspirin and Plavix in case patient needs thoracentesis -PTCA/REYNA to Diagonal 1 02/26/19 -Continue amlodipine, Coreg, isosorbide mononitrate -Continue home atorvastatin -Patient has not followed up with cardiology since 06/05/2022 History of stroke -Aspirin and Plavix on hold for now due to possible need for thoracentesis -PT/OT consultation History of PFO -Monitor Tobacco abuse -Patient utilizes smokeless tobacco -Nicotine replacement therapy as available DVT prophylaxis -Heparin drip for now until we can clarify what to do with his elevated D-dimer CODE STATUS -DNR CCA with no intubation as per discussion on admission Time spent in the patient's overall evaluation,decision-making process, review of diagnostic data, adjustment of management, discussion with other providers, nursing nursing and ancillary staff involved in patient's care documentation, 40 minutes Charges/Coding Visit Charges Inpatient E&M: 26068 Subs Hosp L2
--- NOTE | 2023-07-11 07:36 | VDLE_ITS ---
Reason For Study: Elevated D Dimer RIGHT LEFT GSV is normal. GSV is normal. CFV is patent and compressible. CFV is compressible, spontaneous, competent, Acute deep vein thrombosis is noted in the and demonstrates pulsatile venous flow. FV. It is dilated and NONCOMPRESSIBLE. FV is compressible, spontaneous, competent Acute deep vein thrombosis is noted in the and demonstrates pulsatile venous flow. POP V. It is dilated and NONCOMPRESSIBLE. POP V is compressible, spontaneous, T/P Trunk is PARTIALLY COMPRESSIBLE. competent and demonstrates pulsatile venous PTV is compressible. flow. RT PerV is compressible. T/P Trunk is compressible. Procedure PTV is compressible. This is a venous duplex using B-mode, color LT PerV is compressible. flow and spectral Doppler. Exam performed portable in patient room. The exam was diagnostic. The study was technically difficult. A preliminary report was called and/or faxed to [facility] internet sourcer. VL/Venous Duplex US - Eduard Extrem Interpretation Summary Acute deep vein thrombosis is noted in the right femoral vein, popliteal vein, tibioperoneal trunk vein Deep veins of the left lower extremity are patent and compressible segmentally. There is no evidence of left lower extremity deep vein thrombosis. The left great saphenous vein ralph ears patent and compressible segmentally. Ordering Physician: Erin Steinberg Referring Physician: Rosario Arroyo Performed By: Jose Harris RVT
--- NOTE | 2023-07-11 07:38 | US_ITS ---
INDICATION: feliciano on ckd not improving EXAMINATION: Ultrasound US Kidney(s) complete (eg, kidneys and bladder) TECHNIQUE: Null scale and color doppler images were obtained of the kidneys. COMPARISON: None. FINDINGS: RIGHT KIDNEY: Measures 9.4 cm in length. Increased echogenicity.. There is no hydronephrosis. No shadowing calculus, focal lesion or perinephric collection is demonstrated. LEFT KIDNEY: It measures 9.5 cm in length. Increased echogenicity. There is no hydronephrosis. No shadowing calculus, focal lesion or perinephric collection is demonstrated. URINARY BLADDER: No acute abnormality. Slightly trabeculated fluoroscopy. US/Kidney and Bladder IMPRESSION: No hydronephrosis. Increased echogenicity of the bilateral kidneys compatible with medical renal disease. Electronically Signed: Fadi Sesay MD at 19:17 EDT ,
[2023-07-11] MEDS: Furosemide 40 MG/4 ML Vial IV ×2 (08:18→17:00)
[2023-07-11] MEDS: Isosorbide Mononitrate 30 MG Tablet PO (08:18)
[2023-07-11] MEDS: Carvedilol 25 MG Tablet PO (08:18)
[2023-07-11] MEDS: amLODIPine 10 MG Tablet PO (08:19)
[2023-07-11 09:00] VITALS: BP 126/81; PULSE 73; RESP 16; TEMP 36.6; O2SAT 97
--- NOTE | 2023-07-11 10:22 | NURSING ---
Patient valuables envelope sent to security with wallet and check book. Goncalves counted with Primary RN, Romelia.
[2023-07-11 11:31] VITALS: O2SAT 93
[2023-07-11 11:32] LABS: Bedside Glucose 147 mg/dL (74-106)
--- NOTE | 2023-07-11 11:43 | CPS ---
Pt declined i.s. & pep, says won't use.
[2023-07-11 13:27] LABS: Partial Thromboplast Time 55.7 Seconds (24.1-36.2)
[2023-07-11 14:13] LABS: Osmolality, Urine 700 mOsm/KG
[2023-07-11 14:22] LABS: Urea Nitrogen, Urine 1166 mg/dL (NO RANGE EST.); Urine Chloride 40 mmol/L (Not Establ.); Urine Sodium 40 mmol/L (Not Establ.)
[2023-07-11 14:30] VITALS: BP 128/86; PULSE 73; RESP 16; TEMP 36.6; O2SAT 94
--- NOTE | 2023-07-11 15:21 | CHAPLAIN ---
Type of Pastoral Visit _x__ Initial Visit ___ Follow-up Visit ___ On-call Visit ___ General Patient Visit ___ Spiritual Assessment ___ Family Conference ___ Bereavement ___ Rapid Response ___ Code Blue ___ Other (describe below) Pastoral Care Referral From _x__ Patient ___ Family ___ Nurse ___ Physician ___ Hand Crown Pouncer ___ Arboreal Scientist ___ Other (describe below) Sacrament/Intervention _x__ Active listening ___ Anointing ___ Lutheran ___ Bereavement ___ Communion ___ Akanksha exploration ___ ___ Life review _x__ Prayer ___ Reconciliation ___ Sacrament of Sick _x__ Supportive presence ___ Wedding ___ Other (describe below) Pastoral Comments
--- NOTE | 2023-07-11 15:32 | PCM.CONS.R ---
Assessment & Plan Assessment/Plan (1) RASHAWN (acute kidney injury): PLAN: Baseline cr in mid 2s although several fluctuations. non nephrotic range proteinuria. previous serologic work up ANCA, anti GBM, c3 c4 normal. JALEN negative. renal US pending. current cr in 3s. previous echo with low EF, elevated PA pressures. repeat echo pending ok to continue IV lasix for now D Dimer high, on heparin drip (2) Chronic renal failure: QUALIFIERS: Chronic kidney disease stage: stage 4 (severe) Qualified Code(s): N18.4 - Chronic kidney disease, stage 4 (severe) HPI Consult Data Date of Consult: 07/11/23 HPI Narrative Reason for Consultation: CKD 4 HPI Narrative: KALYANI LIVINGSTON, is a 62 M who presents to the hospital with dyspnea. renal consulted in view of CKD 4 and RASHAWN. He was seen by us in hospital in december this year. CKD 4 Baseline cr in mid 2s. several fluctuations. CHF with low EF 35% as of last echo. presented with dyspnea. CT chest showed effusions, edema, lymphadenopathy. currently on IV lasix. denies any difficulty passing urine. unable to tell me if he gained any weight. not much edema in LE. D Dimer is high. currently on heparin drip. PFSH Medical History Acute cerebrovascular accident of cerebellum Ankle fracture, left Atherosclerotic heart disease of [place] coronary artery without angina pectoris CKD (chronic kidney disease), stage IV Essential hypertension History of left heart catheterization (LHC) (~02/26/19) Ischemic dilated cardiomyopathy Neck fracture PFO (patent foramen ovale) Presence of stent in coronary artery (~02/26/19) Pulmonary hypertension Pulmonary hypertension assoc with unclear multi-factorial mechanisms Pure hypercholesterolemia Smokeless tobacco use Tobacco chew use Uncontrolled type 2 diabetes mellitus Home Medications nitroglycerin 0.4 mg sublingual tablet 0.4 mg sublingual Q5M PRN Chest Pain #0 tabs 03/07/22 [Rx Last Taken Unknown] acetaminophen 325 mg tablet 650 mg PO Q4H PRN Pain 06/05/22 [History Last Taken Unknown] amlodipine 10 mg tablet 10 mg PO DAILY BLOOD PRESSURE 06/05/22 [History Last Taken 07/10/23] cholecalciferol (vitamin D3) 1,250 mcg (50,000 unit) capsule 1,250 mcg PO FR SUPPLEMENT 06/05/22 [History Last Taken 01/12/23] mirtazapine 15 mg tablet 15 mg PO QHS INSOMNIA 06/05/22 [History Last Taken 01/15/23 20:00] atorvastatin 40 mg tablet 40 mg PO QHS CHOLESTEROL 12/20/22 [History Last Taken 07/09/23] carvedilol 25 mg tablet 25 mg PO BID HEART 12/20/22 [History Last Taken 01/16/23 09:00] clopidogrel 75 mg tablet 75 mg PO DAILY BLOOD THINNER 12/20/22 [History Last Taken 01/16/23 09:00] isosorbide mononitrate 30 mg tablet,extended release 24 hr 30 mg PO DAILY HEART 12/20/22 [History Last Taken 01/16/23 09:00] albuterol sulfate 2.5 mg/3 mL (0.083 %) solution for nebulization 2.5 mg (3 mL) inhalation Q2H PRN PRN Dyspnea, wheezing #0 mL 12/27/22 [Rx Last Taken Unknown] aspirin 81 mg tablet,delayed release 81 mg PO DAILY HEART HEALTH 01/16/23 [History Last Taken 01/16/23] ferrous sulfate 325 mg (65 mg iron) tablet (FeroSul) 325 mg PO QODAY SUPPLEMENT 01/16/23 [History Last Taken 01/16/23 09:00] furosemide 40 mg tablet 40 mg PO DAILY FLUID 01/16/23 [History Last Taken 01/16/23 09:00] multivitamin 1 tab PO QHS HEALTH MAINTENANCE 01/16/23 [History Last Taken 01/15/23] ondansetron 4 mg disintegrating tablet 4 mg PO Q8H PRN Nausea 01/16/23 [History Last Taken Unknown] sennosides 8.6 mg-docusate sodium 50 mg tablet (Stool Softener-Stimulant Laxative) 2 tab PO BID PRN Constipation 01/16/23 [History Last Taken Unknown] Allergy/AdvReac Type Severity Reaction Status Date / Time ampicillin Allergy Swelling Verified 07/10/23 16:41 fish derived Allergy Swelling Verified 07/10/23 16:41 [seafood - derived] ibuprofen [From Motrin] Allergy Swelling Verified 07/10/23 16:41 shellfish derived Allergy Swelling Verified 07/10/23 16:41 [seafood - shellfish] Family History Mother Heart disease Hypertension Father Heart disease Hypertension Surgical History H/O bilateral hip replacements Presence of coronary angioplasty implant and graft (~02/26/19) Social History household members: none Smoking Status: Current every day smoker tobacco type: smokeless tobacco Smokeless tobacco user: chewing tobacco alcohol intake: never substance use type: does not use caffeine: Yes ROS ROS Narrative negative except above Physical Exam Narrative Alert awake oriented x 3 no obvious distress no pallor no icterus no JVD s1s2 no murmurs lungs clear abdomen soft no organomegaly no edema no cyanosis Lab / Micro Data 07/11/23 03:55 07/11/23 03:55 Labs: Laboratory Results - last 24 hr 07/10/23 17:27: WBC 7.2, RBC 4.04 L, Hgb 11.4 L, Hct 37.9 L, MCV 93.8, MCH 28.2, MCHC 30.1 L, RDW Std Deviation 47.9 H, RDW Coeff of Ave 13.9, Plt Count 227, MPV 12.2 H, Immature Gran % (Auto) 0.300, Neut % (Auto) 78.3 H, Lymph % (Auto) 12.2 L, [place] % (Auto) 5.7, Eos % (Auto) 2.8, Baso % (Auto) 0.7, Absolute Neuts (auto) 5.7, Absolute Lymphs (auto) 0.88, Nucleated RBC % 0, APTT 31.9, D-Dimer Quant (PE/DVT) 1.93 H*, Sodium 141, Potassium 4.1, Chloride 113 H, Carbon Dioxide 22.0, Anion Gap 6, BUN 30 H, Creatinine 3.34 H, Estim Creat Clear Calc 25.17, Est GFR (MDRD) Af Amer 24 L, Est GFR (MDRD) Non-Af 20 L, BUN/Creatinine Ratio 9.0 L, Glucose 156 H, Calcium 8.1 L, Total Bilirubin 0.60, Direct Bilirubin 0.24, AST 16, ALT 26, Alkaline Phosphatase 121 H, Troponin I High Sens 29, B-Natriuretic Peptide 1672.9 H, Total Protein 6.8, Albumin 3.5, Globulin 3.3, Lipase 15, Acetone Level NEGATIVE 07/10/23 21:00: Hemoglobin A1c 5.4, Troponin I High Sens 34 07/10/23 21:44: POC Glucose 98 07/10/23 23:21: Troponin I High Sens 30 07/11/23 03:55: WBC 6.3, RBC 3.90 L, Hgb 11.1 L, Hct 36.0 L, MCV 92.3, MCH 28.5, MCHC 30.8 L, RDW Std Deviation 47.6 H, RDW Coeff of Ave 14.1, Plt Count 215, MPV 11.6, Immature Gran % (Auto) 0.300, Neut % (Auto) 77.4 H, Lymph % (Auto) 13.5 L, [place] % (Auto) 5.3, Eos % (Auto) 2.5, Baso % (Auto) 1.0, Absolute Neuts (auto) 4.9, Absolute Lymphs (auto) 0.85, Nucleated RBC % 0, APTT 213.7 H*, Sodium 143, Potassium 4.2, Chloride 114 H, Carbon Dioxide 23.0, Anion Gap 6, BUN 30 H, Creatinine 3.22 H, Estim Creat Clear Calc 26.11, Est GFR (MDRD) Af Amer 25 L, Est GFR (MDRD) Non-Af 21 L, BUN/Creatinine Ratio 9.3 L, Glucose 131 H, Calcium 8.1 L, Phosphorus 3.5, Magnesium 2.0, Total Bilirubin 0.80, AST 18, ALT 25, Alkaline Phosphatase 111, Total Protein 6.2 L, Albumin 3.3, Globulin 2.9, Albumin/Globulin Ratio 1.1, TSH 1.91 07/11/23 05:00: Urine Color Yellow, Urine Clarity Clear, Urine pH 5.0, Ur Specific [place] 1.025, Urine Protein 500 H, Urine Glucose (UA) Normal, Urine Ketones Negative, Urine Occult Blood 10 H, Urine Nitrite Negative, Urine Bilirubin Negative, Urine Urobilinogen 1 H, Ur Leukocyte Esterase Negative, Urine RBC 0 SEEN, Urine WBC 0 SEEN, Ur Squamous Epith Cells 0 SEEN, Urine Bacteria 1+, Urine Mucus 0 SEEN, Urine Osmolality 700, Ur Random Sodium 40, Urine Creatinine 276.00, Urine Potassium 40.0, Urine Chloride 40, Urine Urea Nitrogen 1166 07/11/23 06:19: POC Glucose 113 H 07/11/23 11:11: POC Glucose 147 H 07/11/23 12:40: APTT 55.7 H Radiology Impression Chest X-Ray 07/10/23 17:40 IMPRESSION: Perihilar interstitial prominence. Electronically Signed: Jono DO Justo at 18:12 EDT , Chest CT 07/10/23 18:50 IMPRESSION: Bilateral moderate pleural effusions with basilar atelectasis. Bilateral mild patchy groundglass densities and interstitial prominence. Bilateral calcified granulomas. Mild mediastinal adenopathy. Mild perihepatic fluid. Electronically Signed: Jono Kemp DO at 19:52 EDT , Venous Doppler Study 07/11/23 07:36 Interpretation Summary Acute deep vein thrombosis is noted in the right femoral vein, popliteal vein, tibioperoneal trunk vein Deep veins of the left lower extremity are patent and compressible segmentally. There is no evidence of left lower extremity deep vein thrombosis. The left great saphenous vein appears patent and compressible segmentally. Ordering Physician: Erin Steinberg Referring Physician: Rosario Arroyo Performed By: Jose Harris RVT
[2023-07-11 17:13] LABS: Bedside Glucose 127 mg/dL (74-106)
[2023-07-11 18:49] LABS: Partial Thromboplast Time 57.1 Seconds (24.1-36.2)
[2023-07-11] MEDS: 0.9% Saline Lock 10 ML Syringe IV (20:39)
[2023-07-11 20:45] VITALS: BP 131/92; PULSE 74; RESP 19; TEMP 36.6; O2SAT 97
[2023-07-11] MEDS: HEPARIN/D5w 25,000 UNITS 25,000 UNITS/250 ML IV.SOLN. 9 UNITS CONT INF (22:13)
[2023-07-11] MEDS: Menthol/Lanolin/Calamine/Znox 113 GM Tube 1 APPLIC TOPICAL (22:21)
[2023-07-11 22:54] LABS: Bedside Glucose 148 mg/dL (74-106)
[2023-07-12] VITALS (8 sets, daily range): BP systolic 113–130; BP diastolic 84–95; PULSE 68–74; RESP 16–20; TEMP 36.4–36.6; O2SAT 92–100
[2023-07-12 00:54] LABS: Partial Thromboplast Time 52.8 Seconds (24.1-36.2)
[2023-07-12] MEDS: Heparin Injection (Vial) 5,000 UNIT/ML VIAL IV (02:54)
[2023-07-12 08:03] LABS: Absolute Lymphocyte Count 0.53 X10^3/uL (0.83-4.51); Absolute Neutrophil Count 8.9 X10^3/uL (2.0-7.7); Basophil# 0.05 X10^3/uL; Basophil% 0.5 % (0-1); Hematocrit 39.5 % (40-54); Lymphocyte # 0.53 X10^3/ul (0.83-4.51); Lymphocyte % 5.4 % (19-41); Mean Corp Hgb Conc 30.4 g/dL (32-36); Mean Corpuscular Hgb 27.9 pg (27.0-32.0); Mean Corpuscular Volume 91.9 fL (80-94); Mean Platelet Vol. 12.6 fl (6.2-12.0); Monocyte# 0.31 X10^3/uL; Monocyte% 3.2 % (0-10); NRBC Flagged by Analyzer 0 % (0-5); Neutrophil # 8.88 X10^3/uL (2.7-7.7); Neutrophil % 90.3 % (47-70); POSITIVE DIFFERENTIAL YES; Platelet Count 241 K/mm3 (150-450); RBC Distribution Width CV 13.9 % (11.6-14.6); RBC Distribution Width SD 47.3 fl (35.1-43.9); White Blood Count 9.8 K/mm3 (4.4-11.0)
[2023-07-12 08:16] LABS: Partial Thromboplast Time 38.6 Seconds (24.1-36.2)
[2023-07-12 08:28] LABS: Anion Gap 9 (5-15); BUN 39 mg/dL (7-18); Calcium,Total 8.7 mg/dL (8.5-10.1); Chloride 110 mmol/L (98-107); Differential Indicated SCAN CRITERIA MET; EST Glomerular Filtration Rate 17 mL/min (>60); Est Glom Filt Rate - Afr Amer 20 mL/min (>60); Estimated Creatinine Clearance 21.56 ml/min; Glucose 176 mg/dL (74-106); Potassium 4.3 mmol/L (3.5-5.1); Sodium Level 142 mmol/L (136-145)
[2023-07-12] MEDS: APIXABAN 5 MG TABLET PO ×2 (08:55→21:34)
[2023-07-12] MEDS: Isosorbide Mononitrate 30 MG Tablet PO (08:55)
[2023-07-12] MEDS: Menthol/Lanolin/Calamine/Znox 113 GM Tube 1 APPLIC TOPICAL ×2 (08:55→21:33)
[2023-07-12] MEDS: Carvedilol 25 MG Tablet PO ×2 (08:55→21:35)
[2023-07-12] MEDS: amLODIPine 10 MG Tablet PO (08:57)
--- NOTE | 2023-07-12 09:10 | NURSING ---
pt tolerating ice chips with no s/s of aspiration. meds given crushed in applesauce, and pt began to gag after second spoonful. eventually was able to swallow and keep them down followed by several ice chips without any further gagging.
--- NOTE | 2023-07-12 09:19 | PN.RENAL_ITS ---
Subjective Subjective Resting quietly. No overnight events. Complaining of nausea this morning. Has been n.p.o. Objective Data Objective Data Vital Signs: Vital Signs Temp Pulse Resp BP Pulse Ox O2 Del Method O2 Flow Rate 97.8 F 70 19 H 128/84 H 97 Nasal Cannula 2 07/12/23 04:59 07/12/23 04:59 07/12/23 04:59 07/12/23 04:59 07/12/23 07:45 07/12/23 07:45 07/12/23 07:45 Oxygen Flow Rate (L/min) 2 Oxygen Delivery Method Nasal Cannula Weight: 83.7 kg Body Mass Index (BMI) 25.0 Intake & Output: Intake and Output for Last 24 Hours 07/10/23 07/11/23 07/12/23 23:59 23:59 23:59 Intake Total 310 / 310 460.85 / 460.85 39.9 / 39.9 Output Total 1300 / 1300 350 / 350 Balance 310 / 310 -839.15 / -839.15 -310.1 / -310.1 Lab / Micro Data 07/12/23 07:07 07/12/23 07:07 Labs: Laboratory Results - last 24 hr 07/11/23 05:00: Urine Osmolality 700, Ur Random Sodium 40, Urine Creatinine 276.00, Urine Potassium 40.0, Urine Chloride 40, Urine Urea Nitrogen 1166 07/11/23 11:11: POC Glucose 147 H 07/11/23 12:40: APTT 55.7 H 07/11/23 16:52: POC Glucose 127 H 07/11/23 18:29: APTT 57.1 H 07/11/23 22:10: POC Glucose 148 H 07/12/23 00:30: APTT 52.8 H 07/12/23 07:07: WBC 9.8, RBC 4.30 L, Hgb 12.0 L, Hct 39.5 L, MCV 91.9, MCH 27.9, MCHC 30.4 L, RDW Std Deviation 47.3 H, RDW Coeff of Ave 13.9, Plt Count 241, MPV 12.6 H, Immature Gran % (Auto) 0.600, Neut % (Auto) 90.3 H, Lymph % (Auto) 5.4 L , Noble % (Auto) 3.2, Eos % (Auto) 0.0, Baso % (Auto) 0.5, Absolute Neuts (auto) 8.9 H, Absolute Lymphs (auto) 0.53 L, Nucleated RBC % 0, APTT 38.6 H, Sodium 142, Potassium 4.3, Chloride 110 H, Carbon Dioxide 23.0, Anion Gap 9, BUN 39 H, Creatinine 3.90 H, Estim Creat Clear Calc 21.56, Est GFR (MDRD) Af Amer 20 L, Est GFR (MDRD) Non-Af 17 L, BUN/Creatinine Ratio 10.0, Glucose 176 H, Calcium 8.7 Radiography Diagnostic Testing: Radiology Impression Echocardiogram 07/10/23 19:51 Interpretation Summary Severe global left ventricular systolic dysfunction. The left ventricular ejection fraction is 25 %. Stage 3 diastolic dysfunction. Moderate global right ventricular systolic dysfunction. There is severe biatrial dilatation. Mild-Moderate (1-2+) mitral valve insufficiency. Moderately severe (3+) tricuspid valve insufficiency. Right ventricular systolic pressure estimated to be 61 mmHg. Severe pulmonary hypertension. Mildly dilated aortic root. Moderate size left pleural effusion. Ordering Physician: Keke Christianson Referring Physician: Rosario Arroyo Performed By: Inna Urbina RDCS Venous Doppler Study 07/11/23 07:36 Interpretation Summary Acute deep vein thrombosis is noted in the right femoral vein, popliteal vein, tibioperoneal trunk vein Deep veins of the left lower extremity are patent and compressible segmentally. There is no evidence of left lower extremity deep vein thrombosis. The left great saphenous vein appears patent and compressible segmentally. Ordering Physician: Erin Steinberg Referring Physician: Rosario Arroyo Performed By: Jose Harris, RVT Renal Ultrasound 07/11/23 07:38 IMPRESSION: No hydronephrosis. Increased echogenicity of the bilateral kidneys compatible with medical renal disease. Electronically Signed: Fadi Sesay MD at 19:17 EDT , Physical Exam Narrative Alert awake oriented x 3, no acute distress s1s2 no murmurs lungs clear anteriorly, diminished breath sounds posterior bases, no rales noted abdomen soft, nontender no edema Assessment & Plan Assessment/Plan (1) RASHAWN (acute kidney injury): PLAN: 62-year-old male with a past medical history significant for type 2 diabetes mellitus, coronary artery disease, heart failure with reduced EF 25%, stroke, severe pulmonary hypertension who presented to the emergency room on 07/10 with complaints of shortness of breath. Work-up in emergency room included CT of chest which showed large bilateral pleural effusions, BNP elevated, D-dimer elevated on heparin drip. - RASHAWN superimposed on chronic kidney disease stage III. RASHAWN possibly from cardiorenal syndrome physiology. Renal US no hydro. Serum creatinine 3.3 on admission --> 3.2 on 07/11 and today creatinine up to 3.9. Will hold lasix for today. Patient is npo and to undergo swallow eval - CKD stage III: Baseline SCr in mid 2s although several fluctuations. non nephrotic range proteinuria. previous serologic work up ANCA, anti GBM, c3 c4 normal. JALEN negative. - Repeat echo yesterday: Severe left ventricular systolic dysfunction, EF 25%, stage III diastolic dysfunction, moderate global right ventricular systolic dysfunction, severe pulmonary hypertension, moderate size left pleural effusion, severe biatrial dilatation, moderately severe tricuspid valve insufficiency, moderate mitral valve insufficiency (previous echo with low EF, elevated PA pre ssures). B/L large pleural effusions. Has been on Lasix 40 mg IV twice daily. Bps acceptable - + DVT right femoral, popliteal, tibioperoneal veins and D Dimer high, on heparin drip - discussed nephrology plan with Dr. Steinberg. (2) Chronic renal failure: QUALIFIERS: Chronic kidney disease stage: stage 4 (severe) Qualified Code(s): N18.4 - Chronic kidney disease, stage 4 (severe)
[2023-07-12 09:45] LABS: Differential Comment SCANNED
--- NOTE | 2023-07-12 10:05 | CASEMGMT ---
RN?CM?DIGITAL ACCOUNT EXECUTIVE?CM?to room to meet with patient for initial transition planning/care coordination?assessment.?RN?CM?introduced self and role at [facility].? Pt voices understanding and consents to?assessment?at this time.? Pt resting in bed in no distress at this time.? Pt is A/O at this time and answers all questions appropriately.?? Care providers, pharmacy, and demographics verified/updated at this time. PCP: Dr Arroyo Specialists: [facility]/Cardiology Preferred Pharmacy: [facility] Retail Insurance: [employer] - [facility], [facility] Prescription Benefit: yes Living Will/HPOA: Pt does not currently have LW/HCPOA and declines info at this time.? Pt made aware that he can contact as an out-pt and make appt in the future if he decides he would like to talk with someone about this or would like to utilize [facility] social work for advanced directive completion.?? LNOK: brother, Kyle is only contact listed. Pt states he does have one son, whom he has not been in contact w/ for years and states he thinks she lives somewhere in [place]. His mother is living, but states he has not seen her for about 6 months. He has 3 living brothers. Living Arrangements: Patient lives alone in a first floor apartment with 2 steps to enter thru the front entrance and 5 steps to enter through another entrance. Patient states he is independent at home w/ADL's and IADL's. Friend takes him to get groceries. CM/Waiver program: Pt has waiver program and has a CM through [facility] but does not remember her name. Juliane JONES, made aware. Transportation: friends. Pt states he is not sure who will take him home @ discharge, but thinks his friends' can take him and states she can also help him up the 2 steps to get into the front entrance. DME: Patient states he has cane, rollator, and medical alert at home. SNF/HHHC: Patient has previously been to [facility]. He is active w/[facility] for SN only for med mgnt, but he would like therapy also. Call to Liana @ [place], she was made aware pt has been admitted to [facility], and would like therapy w/[facility] once returning home. She states they are unable to provide therapy. She states pt would need to be discharged from their services and referral would need made to another [facility] agency for both SN and therapy. She states, once pt has completed therapy, then they can take him back for on-going weekly SN for med mgnt. Pt made aware and declines having preference of [facility] agency and states whoever can take him. Ludivina, process planner, made aware. Pt wishes to return home and states has no concerns with going home at time of discharge.? CM?to follow for any further discharge planning/needs.? Pt voices no further concerns/needs at this time.? Advised pt to ask for?CM?if any further questions/concerns/needs arise.? Voices understanding. PLAN:??Home w/C: SN and PT/OT. Follow therapy and discuss recommendations w/pt. Erinn SCHMIDTN?RN?CM
--- NOTE | 2023-07-12 10:33 | CASEMGMT ---
Patient has a telephonic nurse case manager at [facility], but does not remember the name. SW called [facility] and first spoke with the coverage line. Patient's telephonic nurse case manager is Gregoria Greene. KAREN then spoke with Gregoria. Patient is supposed to go to [place] 3 days a week, but has not been able to go due to bed bugs. Patient also has [employer] button, medication dispensing machine from [facility], and a nurse from [place] fills this med machine. Gregoria asked that KAREN keep her updated on patient's plan. Juliane Holt [employer]URANT MANAGER JACKY
--- NOTE | 2023-07-12 10:53 | SP.MBSS_ITS ---
Modified Barium Swallow Patient Information Study Date: 07/12/23 Study Time: 13:30 Direct Billable Minutes: 92 Total Minutes procedure & reportin Diagnosis: Bilateral pleural effusion J90.0, Aspiration PNA J69.0 Referring Physician: Erin Steinberg Reason for Referral: Objectively assess swallow function, assess risk for aspiration, and determine recommendations for least restrictive diet textures and compensatory strategies to improve safety of swallow. Medical History: The patient is a 62-year-old male with PMH He presented to [facility] ED on with worsening shortness of breath for the past two weeks. Patient has history of chronic chest pain, shortness of breath and chronic abdominal pain, Acute cerebrovascular accident of cerebellum, CKD (chronic kidney disease) , stage IV, HTN , smokeless tobacco use, Uncontrolled type 2 diabetes mellitus (SEE EMR for full PMH). Chest x-ray showed perihilar interstitial prominence but was otherwise unremarkable. CT of the chest without contrast and this shows large bilateral pleural effusions with bibasilar atelectasis and groundglass densities with mild interstitial prominence and bilateral calcified granulomas as well as mild mediastinal lymphadenopathy and mild perihepatic fluid. He was referred for ST consult. Patient is known to this ST department with MBSS completed in December of this year. SEE MBSS results and recommendations below. Per patient, he has not utilized modified diet or followed up with recommended speech therapy to address moderate-severe dysphagia since his stay in December. He was referred for repeat MBSS after being made NPO during BSE by [employer] due to increasing shortness of breath and wheezing after 3-5 trials of thin, nectar, and puree. MBSS 12/22/2022 revealed moderate-severe oropharyngeal phase dysphagia. SILENT aspiration of thin liquids and pudding both during and after the swallow. Recommendations: Diet: Puree Textures, [place]-thick Liquids; Compensatory Strategies: Small Bites - EFFORTFUL SWALLOW ON EACH BITE, COUGH AND RE-SWALLOW AFTER EVERY 3-5 BITES, Small Sips, Slow Rate, Sitting upright, Assist with verbal cues to use recommended strategies; Supervision: 1:1 Close Supervision; Recommend Repeat Modified Barium Swallow: Yes; Comment: Repeat MBSS in 2-4 weeks after implementation of oropharyngeal exercise program. Repeat study prior to diet advancement due to SILENT nature of aspiration. Need for Skilled Speech Therapy Services: Yes; Comment: Will recommend the patient for intensive dysphagia therapy to address moderate-severe deficits in oropharyngeal swallow function. Will recommend the patient for oropharyngeal strengthening to improve lingual control/coordination, hyolaryngeal elevation/excursion, tongue base retraction, and pharyngeal contraction. The patient would benefit from thorough education regarding diet recommendations and recommended compensatory strategies. Current Diet Ordered: NPO, sips/chips, meds crushed in Mental Status: WNL (Able to follow commands for evaluation) Respiratory Status: Oxygenating on 2L/M nasal cannula Penetration-Aspiration Scale Penetration-Aspiration Scale: OBJECTIVE ASSESSMENT OF SWALLOW FUNCTION (QUANTITATIVE ? PER TRIAL): PENETRATION / ASPIRATION SCALE (DE LEÓN): 1 = does not enter airway 2 = enters airway/above vocal folds/ejected 3 = enters airway/above vocal folds/not ejected 4 = enters airway/contacts vocal folds/ejected 5 = enters airway/contacts vocal folds/not ejected 6 = enters airway/below vocal folds/ejected 7 = enters airway/below vocal folds/not ejected despite effort 8 = enters airway/below vocal folds/no effort VIDEOFLOROSCOPIC SCALE SCORE (DE LEÓN): Grade I = aspiration of material that has penetrated into the laryngeal vestibule, intact cough reflex Grade II = aspiration < 10 % of the bolus, intact cough reflex Grade III = aspiration of < 10 % of the bolus, reduced cough reflex or aspiration of > 10 % of the bolus, intact cough reflex Grade IV = aspiration of > 10 % of the bolus, reduced cough reflex Penetration-Aspiration Scale Score Thin liquid via tsp with cued double swallow: Result: 1= does not enter airway Thin liquid via tsp with cued effortful double swallow: Result: 1= does not enter airway Thin liquid via sequential cup sips ([employer] cued 1 sip): Result: 8= enters airway/below vocal folds/no effort Thin liquid via single cup sip with 3 cued hard swallows: Result: 1= does not enter airway [place] thick liquid via single cup with 3 cued hard swallows (Pt able to complete 2 swallows): Result: 2= enter airway/above vocal folds/ejected Pudding via teaspoon: Result: 1= does not enter airway Comment: Esophageal screen - complete clearance. [place] thick via single cup sip with independent double swallow: Result: 1= does not enter airway 1/4 Cookie: Comment: Unable to score due to inability for A-P transport. Thin liquid via single cup sip: Result: 7= enters airways/below vocal folds/not ejected despite effort [place] thick via single cup sip with cued double swallow: Result: 1= does not enter airway Oral Phase Labial Seal: Escape progressing to mid-chin Tongue Control During Bolus Hold: Posterior escape of less than half of bolus Bolus Preparation/Mastication: Disorganized chewing/mashing with solid pieces of bolus unchewed Bolus Transport/Lingual Motion: Repetitive/disorganized tongue motion Oral Residue: Minimal to no clearance (No clearance of cookie) Pharyngeal Phase Initiation of Pharyngeal Swallow: Bolus head in pyriforms Soft Palate Elevation: Trace column of contrast/air between soft palate and pharyngeal wall Laryngeal Elevation: Partial superior movement thyroid cart/partial apprx aryt- epig petiole Anterior Hyoid Excursion: Partial anterior movement Epiglottic Movement: Partial inversion Laryngeal Vestibule Closure at Height of Swallow: Incomplete; narrow column of air/contrast in laryngeal vestibule Pharyngeal Stripping Wave: Present - diminished Pharyngoesophageal Segment Opening: Parital distension and partial duration; parital obstruction of flow Tongue Base Retraction: Wide column of contrast between tongue base & post. pharyngeal wall Pharyngeal Residue: Collection of residue within or on pharyngeal structures Esophageal Phase Esophageal Clearance: Complete clearance Diagnosis/Impression Diagnosis: Moderate-severe oropharyngeal phase dysphagia R13.12 Impression: The oral phase is primarily marked by... -Decreased bolus control with <1/2 of the bolus spilling posteriorly to the pyriforms prior to swallow onset observed with thin liquids especially. -Disorganized and decreased tongue motion for A-P transport. Patient was unable to initiate A-P transport of cookie trial and [employer] cleared with a toothette swab. The pharyngeal phase is primarily marked by... -Decreased airway closure during the swallow due to partial anterior hyoid excursion, partial epiglottic inversion, and decreased laryngeal elevation. -Severely decreased tongue base retraction, mildly decreased UES opening/duration, and poor pharyngeal stripping wave with resulting moderate- severe pharyngeal residues after the swallow. Effortful and multiple swallows improved pharyngeal clearance. He is at high risk for post prandial aspiration due to extent of pharyngeal residues. -SILENT and overt aspiration of thin liquids by cup during the swallow. Trace SILENT post prandial aspiration likely of pharyngeal residues of pudding. Recommendations Diet: Puree Textures and [place]-thick Liquids Comment: Intermittent cough and re-swallow, especially if vocal quality is wet Compensatory Strategies: Small Bites, Small Sips, Slow Rate, Multiple Swallows (2-3 HARD swallows per each bite/sip), Alternate bites/solids and sips/liquids and Sitting upright Supervision: 1:1 Close Supervision Recommend Repeat Modified Barium Swallow: Yes Comment: Recommend repeat MBSS prior to diet advancement due to silent aspiration of thin liquids. Need for Skilled Speech Therapy Services: Yes Comment: -Oropharyngeal strengthening program for lingual control, tongue base retraction, hyolaryngeal elevation/excursion. -Training patient and staff in recommended diet textures and aspiration precautions. -Ongoing assessment of diet tolerance and monitoring of respiratory status during stay. Education Completed: 1. Described result of evaluation. Status Active ST Patient: Active Contact Information [facility] Speech Therapy:: Carmel King M.A. [facility] [employer] Speech-Language Pathologist [facility] [address] [place] [address] [phone]
[2023-07-12 11:41] LABS: Bedside Glucose 189 mg/dL (74-106)
[2023-07-12 11:43] LABS: Bedside Glucose 157 mg/dL (74-106)
--- NOTE | 2023-07-12 12:53 | CASEMGMT ---
Discharge Planning Referral sent via [facility] to [facility]. Ludivina Brooke, Discharge Planning Asst.
--- NOTE | 2023-07-12 13:59 | PN.HOSP_ITS ---
Reason for Visit Reason for Visit: Diagnoses Pleural effusion, not elsewhere classified (07/11/23) Acute kidney failure, unspecified (07/11/23) Chronic kidney disease, stage 4 (severe) (07/11/23) Shortness of breath (07/11/23) Other specified abnormal findings of blood chemistry (07/11/23) Subjective Subjective Patient laying in bed, reports he feels slightly better today though is tired Objective Data Objective Data Vital Signs: Vital Signs Temp Pulse Resp BP Pulse Ox O2 Del Method O2 Flow Rate 97.9 F 69 18 125/89 H 92 Nasal Cannula 2 07/12/23 11:57 07/12/23 11:57 07/12/23 11:57 07/12/23 11:57 07/12/23 11:57 07/12/23 11:57 07/12/23 11:57 Oxygen Flow Rate (L/min) 2 Oxygen Delivery Method Nasal Cannula Weight: 83.7 kg Body Mass Index (BMI) 25.0 Intake & Output: Intake and Output for Last 24 Hours 07/10/23 07/11/23 07/12/23 23:59 23:59 23:59 Intake Total 310 / 310 460.85 / 460.85 237.07 / 237.07 Output Total 1300 / 1300 900 / 900 Balance 310 / 310 -839.15 / -839.15 -662.93 / -662.93 Lab / Micro Data 07/12/23 07:07 07/12/23 07:07 Labs: Laboratory Results - last 24 hr 07/11/23 05:00: Urine Osmolality 700, Ur Random Sodium 40, Urine Creatinine 276.00, Urine Potassium 40.0, Urine Chloride 40, Urine Urea Nitrogen 1166 07/11/23 16:52: POC Glucose 127 H 07/11/23 18:29: APTT 57.1 H 07/11/23 22:10: POC Glucose 148 H 07/12/23 00:30: APTT 52.8 H 07/12/23 06:35: POC Glucose 189 H 07/12/23 07:07: WBC 9.8, RBC 4.30 L, Hgb 12.0 L, Hct 39.5 L, MCV 91.9, MCH 27.9, MCHC 30.4 L, RDW Std Deviation 47.3 H, RDW Coeff of Ave 13.9, Plt Count 241, MPV 12.6 H, Immature Gran % (Auto) 0.600, Neut % (Auto) 90.3 H, Lymph % (Auto) 5.4 L , [place] % (Auto) 3.2, Eos % (Auto) 0.0, Baso % (Auto) 0.5, Absolute Neuts (auto) 8.9 H, Absolute Lymphs (auto) 0.53 L, Nucleated RBC % 0, Differential Comment SCANNED, APTT 38.6 H, Sodium 142, Potassium 4.3, Chloride 110 H, Carbon Dioxide 23.0, Anion Gap 9, BUN 39 H, Creatinine 3.90 H, Estim Creat Clear Calc 21.56, Est GFR (MDRD) Af Amer 20 L, Est GFR (MDRD) Non-Af 17 L, BUN/Creatinine Ratio 10.0, Glucose 176 H, Calcium 8.7 07/12/23 11:15: POC Glucose 157 H Radiography Diagnostic Testing: Radiology Impression Echocardiogram 07/10/23 19:51 Interpretation Summary Severe global left ventricular systolic dysfunction. The left ventricular ejection fraction is 25 %. Stage 3 diastolic dysfunction. Moderate global right ventricular systolic dysfunction. There is severe biatrial dilatation. Mild-Moderate (1-2+) mitral valve insufficiency. Moderately severe (3+) tricuspid valve insufficiency. Right ventricular systolic pressure estimated to be 61 mmHg. Severe pulmonary hypertension. Mildly dilated aortic root. Moderate size left pleural effusion. Ordering Physician: Keke Christianson Referring Physician: Rosario Arroyo Performed By: Inna Urbina RDCS Venous Doppler Study 07/11/23 07:36 Interpretation Summary Acute deep vein thrombosis is noted in the right femoral vein, popliteal vein, tibioperoneal trunk vein Deep veins of the left lower extremity are patent and compressible segmentally. There is no evidence of left lower extremity deep vein thrombosis. The left great saphenous vein appears patent and compressible segmentally. Ordering Physician: Erin Steinberg Referring Physician: Rosario Arroyo Performed By: Jose Harris, T Renal Ultrasound 07/11/23 07:38 IMPRESSION: No hydronephrosis. Increased echogenicity of the bilateral kidneys compatible with medical renal disease. Electronically Signed: Fadi Sesay MD at 19:17 EDT , Physical Exam Narrative General: Sleeping but wakes up easily to interact, no apparent distress HEENT: Atraumatic, normocephalic Eyes: Anicteric, normal conjunctiva, extraocular movements grossly intact Neck: Supple Respiratory: Aeration improving, normal respiratory effort Cardiovascular: Regular rate and rhythm GI: Soft, nontender, nondistended Extremities: No edema Musculoskeletal: Moving all extremities Neuro: No overt focal neurological deficits Skin: No rashes appreciated Psych: Somewhat slow to engage Assessment & Plan Assessment/Plan (1) RASHAWN (acute kidney injury): (2) SOB (shortness of breath): (3) D-dimer, elevated: (4) Bilateral pleural effusion: PLAN: Plan Acute on chronic heart failure with reduced ejection fraction -Patient is not compliant with salt restriction or fluid restriction or taking his medications -Has large bilateral pleural effusions likely related to heart failure -We will start Lasix 40 mg IV push twice daily however may need to transition to Lasix drip depending on diuresis -We will check echocardiogram -Last echocardiogram from 12/22/2022 showed moderately severe left global ventricular dysfunction with an EF of 35%, severely dilated right ventricle with severe biatrial enlargement, severe tricuspid valve insufficiency, pulmonary artery systolic pressure of 90 mmHg and moderate mitral valve insufficiency -Fluid restriction to 1500 cc daily -Salt restricted diet -Daily weights -We will cycle cardiac enzymes -07/11: Presented with increasing shortness of breath, had worsening kidney function felt to be cardiorenal and bilateral pleural effusions. Initially thought may be PE given D-dimer however she may have alternate causes for sym ptoms especially given lack of tachycardia and hypoxia and only subjective shortness of breath with extent of effusions. BNP found to be 1600. Rechecking echocardiogram, daily weights, I's and O's, continue IV Lasix -07/12: Holding IV Lasix given kidney function, monitor O2, daily weights, I's and O's. Echocardiogram with EF of 25% and stage III diastolic dysfunction with RVSP of 61 and moderately severe tricuspid valve insufficiency of 3+, similar to previous but with slightly lower EF Shortness of breath without hypoxia -Likely multifactorial with heart failure and bilateral pleural effusions -Not currently oxygen dependent -Monitor clinically -07/11: On heparin drip however suspect this is heart failure in nature, continue IV Lasix, will obtain lower extremity duplexes and DC heparin drip if negative -07/12: Transitioned to oral Eliquis, does feel somewhat better today, had a hold a.m. Lasix D-dimer elevation?found to have lower extremity DVTs -D-dimer was 1.93 in the setting of renal failure -Highly doubtful for PE however has history of pulmonary hypertension -Unable to check V/Q at this time due to significant bilateral pleural effusions -Unable to obtain CTA of the chest due to chronic renal disease -We will start heparin drip with bolus for now and monitor clinically if clinically improved with diuresis may be able to obtain VQ scan or discontinue as likelihood for the elevation of this is related to his renal dysfunction -07/11: Doubt we will be able to obtain VQ scan and unable to get CTA, will obtain lower extremity duplexes and if negative will DC heparin drip especially given this is much less likely PE with other clinical measures/picture -07/12: Venous duplex noted right acute DVT Right femoral vein, popliteal vein, tibioperoneal trunk vein, reasonable to suspect component of PE leading to his shortness of breath/worsening shortness of breath. Transition from heparin to Eliquis. Bilateral large pleural effusions -Anticipate this is related to heart failure -Hoping this improves with diuresis -We will hold aspirin and Plavix in case he does need a thoracentesis -Continue to monitor and pursue thoracentesis if this does not improve with diuresis -These do appear to be larger than noted on his CT of abdomen pelvis done on 11/17/2022 -07/11: Continue diuresis, do anticipate this will continue to improve. 100% or high 90s on room air without tachypnea or tachycardia -07/12: Holding Lasix today given kidney function, daily weights, I's and O's, reports feeling better today RASHAWN on CKD stage IV and urinary retention -Patient has not followed up as an outpatient with nephrology -Avoid nephrotoxins as able -Suspect cardiorenal syndrome and hoping this improves with diuresis -Home diuretics -IV diuretics ordered however may need to transition to Lasix drip -Nephrology consultation -07/11: Very minimally improved from yesterday, may be cardiorenal but given minimal improvement with diuresis will get urine studies. Nephro consult walker lyles, will also obtain kidney ultrasound -07/12: Worsened kidney function today, Lasix held, nephrology following, retroperitoneal ultrasound with increased echogenicity of bilateral kidneys compatible with medical renal disease. Patient was also found to be retaining urine yesterday multiple times and ultimately Trejo catheter placed Debility -PT/OT consultation -Case management/social work consultation -07/12: Patient work with PT/OT again, would like to go home however will need to assess safe ability to do so when medically ready History of ischemic cardiomyopathy -Last documented EF was 35% -See treatment as above -Continue carvedilol -Continue isosorbide mononitrate -Will need cardiology follow-up after discharge -07/11: As above, troponins negative on arrival, do not suspect any ACS as contributory component, echo pending -07/12: As above, no wall motion abnormalities, no further cardiac work-up at this time, suspect worsened EF is due to noncompliance Pulmonary artery hypertension -Suspect who group 2 -Diuresis as above CAD/HTN/HPL -Hold aspirin and Plavix in case patient needs thoracentesis -PTCA/REYNA to Diagonal 1 02/26/19 -Continue amlodipine, Coreg, isosorbide mononitrate -Continue home atorvastatin -Patient has not followed up with cardiology since 06/05/2022 History of stroke -Aspirin and Plavix on hold for now due to possible need for thoracentesis -PT/OT consultation History of PFO -Monitor Tobacco abuse -Patient utilizes smokeless tobacco -Nicotine replacement therapy as available DVT prophylaxis -Heparin drip for now until we can clarify what to do with his elevated D-dimer CODE STATUS -DNR CCA with no intubation as per discussion on admission Time spent in the patient's overall evaluation,decision-making process, review of diagnostic data, adjustment of management, discussion with other providers, nursing nursing and ancillary staff involved in patient's care documentation, 51 minutes Charges/Coding Visit Charges Inpatient E&M: 42476 Subs Hosp L3
--- NOTE | 2023-07-12 14:14 | CASEMGMT ---
Discharge Planning HH referral sent to [facility] via [facility]. Ludivina Brooke, Discharge Planning Asst.
--- NOTE | 2023-07-12 14:30 | CASEMGMT ---
Discharge Planning Patient has been accepted by [facility]. RN CM and patient updated. Ludivina Brooke, Discharge Planning Asst.
[2023-07-12] MEDS: Insulin Lispro 100 UNIT/ML INSULN.PEN SC (16:44)
[2023-07-12 16:53] LABS: Bedside Glucose 166 mg/dL (74-106)
--- NOTE | 2023-07-12 17:34 | CASEMGMT ---
Social Work SW introduced self and role to patient. SW explained SDOH and patient agreed to answer questions. Pt expressed concerns regarding bed bugs and denies any other concerns. SW provided with whire resource list. Pt's has a direction occupational therapist home based that is aware of the bed bug concern. SW asked patient about advance directives. Pt reports brother, Kyle, is his HCPOA. SW asked if patient can provide documents and patient denied. SW provided AD handout. Pt denies any other SW needs at this time. Gladys Anguiano INSTRUCTIONAL TECHNOLOGY TEACHER, DIRECTOR MUSEUM OR ZOO
[2023-07-12] MEDS: Mirtazapine 15 MG Tablet PO (21:35)
[2023-07-12] MEDS: Atorvastatin Calcium 40 MG Tablet PO (21:35)
[2023-07-12 23:43] LABS: Bedside Glucose 167 mg/dL (74-106)
[2023-07-13] VITALS (7 sets, daily range): BP systolic 101–127; BP diastolic 70–89; PULSE 62–171; RESP 14–20; TEMP 36.3–36.6; O2SAT 94–100
[2023-07-13 06:05] LABS: Absolute Lymphocyte Count 0.55 X10^3/uL (0.83-4.51); Absolute Neutrophil Count 16.6 X10^3/uL (2.0-7.7); Basophil# 0.03 X10^3/uL; Basophil% 0.2 % (0-1); Hematocrit 34.3 % (40-54); Hemoglobin 10.6 g/dL (13.0-16.5); Lymphocyte # 0.55 X10^3/ul (0.83-4.51); Mean Corp Hgb Conc 30.9 g/dL (32-36); Mean Corpuscular Hgb 28.1 pg (27.0-32.0); Mean Platelet Vol. 12.9 fl (6.2-12.0); Monocyte# 1.05 X10^3/uL; Monocyte% 5.7 % (0-10); NRBC Flagged by Analyzer 0.1 % (0-5); Neutrophil # 16.57 X10^3/uL (2.7-7.7); Neutrophil % 90.1 % (47-70); POSITIVE DIFFERENTIAL YES; Platelet Count 220 K/mm3 (150-450); RBC Distribution Width CV 14.1 % (11.6-14.6); RBC Distribution Width SD 47.1 fl (35.1-43.9); Red Blood Count 3.77 M/mm3 (4.6-6.2); White Blood Count 18.4 K/mm3 (4.4-11.0)
[2023-07-13] MEDS: Insulin Lispro 100 UNIT/ML INSULN.PEN SC ×2 (06:16→17:07)
[2023-07-13 06:27] LABS: Differential Indicated SCAN CRITERIA MET
[2023-07-13 06:34] LABS: Bedside Glucose 157 mg/dL (74-106)
[2023-07-13 06:48] LABS: Anion Gap 11 (5-15); BUN 54 mg/dL (7-18); BUN/Creat Ratio 13.3 RATIO (10-20); Calcium,Total 8.2 mg/dL (8.5-10.1); Chloride 109 mmol/L (98-107); Creatinine, Serum 4.05 mg/dL (0.70-1.30); EST Glomerular Filtration Rate 16 mL/min (>60); Est Glom Filt Rate - Afr Amer 19 mL/min (>60); Estimated Creatinine Clearance 20.76 ml/min; Glucose 157 mg/dL (74-106); Potassium 4.4 mmol/L (3.5-5.1); Sodium Level 141 mmol/L (136-145)
[2023-07-13 06:52] LABS: Differential Comment SCANNED
--- NOTE | 2023-07-13 08:45 | PCM.PN.HOSP ---
Reason for Visit Reason for Visit: Diagnoses Pleural effusion, not elsewhere classified (07/11/23) Acute kidney failure, unspecified (07/11/23) Chronic kidney disease, stage 4 (severe) (07/11/23) Shortness of breath (07/11/23) Other specified abnormal findings of blood chemistry (07/11/23) Subjective Subjective Pt reports feeling better today, sob better, does report cough but has difficulty describing this, denies abdominal pain, no swelling, no scrapes or cuts or bruises that he reports no other complaints Objective Data Objective Data Vital Signs: Vital Signs Temp Pulse Resp BP Pulse Ox O2 Del Method O2 Flow Rate 97.6 F L 62 18 104/78 96 Nasal Cannula 2 07/13/23 03:00 07/13/23 03:00 07/13/23 03:00 07/13/23 03:00 07/13/23 03:00 07/13/23 03:00 07/13/23 03:00 Oxygen Flow Rate (L/min) 2 Oxygen Delivery Method Nasal Cannula Weight: 83.7 kg Body Mass Index (BMI) 25.0 Intake & Output: Intake and Output for Last 24 Hours 07/11/23 07/12/23 07/13/23 23:59 23:59 23:59 Intake Total 460.85 / 460.85 477.07 / 477.07 50 / 50 Output Total 1300 / 1300 1200 / 1400 200 / 200 Balance -839.15 / -839.15 -722.93 / -922.93 -150 / -150 Lab / Micro Data 07/13/23 05:35 07/13/23 05:35 Labs: Laboratory Results - last 24 hr 07/12/23 06:35: POC Glucose 189 H 07/12/23 07:07: Differential Comment SCANNED 07/12/23 11:15: POC Glucose 157 H 07/12/23 16:33: POC Glucose 166 H 07/12/23 21:31: POC Glucose 167 H 07/13/23 05:35: WBC 18.4 H, RBC 3.77 L, Hgb 10.6 L, Hct 34.3 L, MCV 91.0, MCH 28.1, MCHC 30.9 L, RDW Std Deviation 47.1 H, RDW Coeff of Ave 14.1, Plt Count 220, MPV 12.9 H, Immature Gran % (Auto) 1.000 H, Neut % (Auto) 90.1 H, Lymph % (Auto) 3.0 L, [place] % (Auto) 5.7, Eos % (Auto) 0.0, Baso % (Auto) 0.2, Absolute Neuts (auto) 16.6 H, Absolute Lymphs (auto) 0.55 L, Nucleated RBC % 0.1, Differential Comment SCANNED, Sodium 141, Potassium 4.4, Chloride 109 H, Carbon Dioxide 21.0, Anion Gap 11, BUN 54 H, Creatinine 4.05 H, Estim Creat Clear Calc 20.76, Est GFR (MDRD) Af Amer 19 L, Est GFR (MDRD) Non-Af 16 L, BUN/Creatinine Ratio 13.3, Glucose 157 H, Calcium 8.2 L 07/13/23 06:14: POC Glucose 157 H Physical Exam Narrative General: Awake, alert, no apparent distress HEENT: Atraumatic, normocephalic Eyes: Anicteric, normal conjunctiva, extraocular movements grossly intact Neck: Supple Respiratory: Aeration improving but still diminished at the bases, normal respiratory effort Cardiovascular: Regular rate and rhythm GI: Soft, nontender, nondistended Extremities: No edema Musculoskeletal: Moving all extremities Neuro: No overt focal neurological deficits Skin: No rashes appreciated Psych: More interactive and cooperative today Assessment & Plan Assessment/Plan (1) RASHAWN (acute kidney injury): (2) SOB (shortness of breath): (3) D-dimer, elevated: (4) Bilateral pleural effusion: PLAN: Plan Acute on chronic heart failure with reduced ejection fraction -Patient is not compliant with salt restriction or fluid restriction or taking his medications -Has large bilateral pleural effusions likely related to heart failure -We will start Lasix 40 mg IV push twice daily however may need to transition to Lasix drip depending on diuresis -We will check echocardiogram -Last echocardiogram from 12/22/2022 showed moderately severe left global ventricular dysfunction with an EF of 35%, severely dilated right ventricle with severe biatrial enlargement, severe tricuspid valve insufficiency, pulmonary artery systolic pressure of 90 mmHg and moderate mitral valve insufficiency -Fluid restriction to 1500 cc daily -Salt restricted diet -Daily weights -We will cycle cardiac enzymes -07/11: Presented with increasing shortness of breath, had worsening kidney function felt to be cardiorenal and bilateral pleural effusions. Initially thought may be PE given D-dimer however she may have alternate causes for symptoms especially given lack of tachycardia and hypoxia and only subjective shortness of breath with extent of effusions. BNP found to be 1600. Rechecking echocardiogram, daily weights, I's and O's, continue IV Lasix -07/12: Holding IV Lasix given kidney function, monitor O2, daily weights, I's and O's. Echocardiogram with EF of 25% and stage III diastolic dysfunction with RVSP of 61 and moderately severe tricuspid valve insufficiency of 3+, similar to previous but with slightly lower EF -07/13: Patient -1400 L, will trend weight, Lasix held with worsening kidney failure, respiratory status does seem stable at this time Leukocytosis -07/13: No localizing signs or symptoms of infection but patient very poor historian and not very forthcoming, will check Pro-Hiram, will check UA and culture and blood cultures and assess for any possible underlying infectious etiology, will hold off on empiric antibiotics at this time unless clinical status changes or labs suggestive of underlying infection RASHAWN on CKD stage IV and urinary retention -Patient has not followed up as an outpatient with nephrology -Avoid nephrotoxins as able -Suspect cardiorenal syndrome and hoping this improves with diuresis -Home diuretics -IV diuretics ordered however may need to transition to Lasix drip -Nephrology consultation -07/11: Very minimally improved from yesterday, may be cardiorenal but given minimal improvement with diuresis will get urine studies. Nephro consult pending, will also obtain kidney ultrasound -07/12: Worsened kidney function today, Lasix held, nephrology following, retroperitoneal ultrasound with increased echogenicity of bilateral kidneys compatible with medical renal disease. Patient was also found to be retaining urine yesterday multiple times and ultimately Trejo catheter placed -07/13: Worsened again today despite Lasix being held, when patient presented FEUrea was 45.3% indicating intrinsic in nature, rechecking UA and checking urine culture, evaluating for any underlying infection, nephrology following Shortness of breath without hypoxia -Likely multifactorial with heart failure and bilateral pleural effusions -Not currently oxygen dependent -Monitor clinically -07/11: On heparin drip however suspect this is heart failure in nature, continue IV Lasix, will obtain lower extremity duplexes and DC heparin drip if negative -07/12: Transitioned to oral Eliquis, does feel somewhat better today, had a hold a.m. Lasix -07/13: Respiratory status stable, on Eliquis D-dimer elevation?found to have lower extremity DVTs -D-dimer was 1.93 in the setting of renal failure -Highly doubtful for PE however has history of pulmonary hypertension -Unable to check V/Q at this time due to significant bilateral pleural effusions -Unable to obtain CTA of the chest due to chronic renal disease -We will start heparin drip with bolus for now and monitor clinically if clinically improved with diuresis may be able to obtain VQ scan or discontinue as likelihood for the elevation of this is related to his renal dysfunction -07/11: Doubt we will be able to obtain VQ scan and unable to get CTA, will obtain lower extremity duplexes and if negative will DC heparin drip especially given this is much less likely PE with other clinical measures/picture -07/12: Venous duplex noted right acute DVT Right femoral vein, popliteal vein, tibioperoneal trunk vein, reasonable to suspect component of PE leading to his shortness of breath/worsening shortness of breath. Transition from heparin to Eliquis. Bilateral large pleural effusions -Anticipate this is related to heart failure -Hoping this improves with diuresis -We will hold aspirin and Plavix in case he does need a thoracentesis -Continue to monitor and pursue thoracentesis if this does not improve with diuresis -These do appear to be larger than noted on his CT of abdomen pelvis done on 11/17/2022 -07/11: Continue diuresis, do anticipate this will continue to improve. 100% or high 90s on room air without tachypnea or tachycardia -07/12: Holding Lasix today given kidney function, daily weights, I's and O's, reports feeling better today -07/13: As above Debility -PT/OT consultation -Case management/social work consultation -07/12: Patient work with PT/OT again, would like to go home however will need to assess safe ability to do so when medically ready -07/13: Presently SNF recommended History of ischemic cardiomyopathy -Last documented EF was 35% -See treatment as above -Continue carvedilol -Continue isosorbide mononitrate -Will need cardiology follow-up after discharge -07/11: As above, troponins negative on arrival, do not suspect any ACS as contributory component, echo pending -07/12: As above, no wall motion abnormalities, no further cardiac work-up at this time, suspect worsened EF is due to noncompliance Pulmonary artery hypertension -Suspect who group 2 -Diuresis as above CAD/HTN/HPL -Hold aspirin and Plavix in case patient needs thoracentesis -PTCA/REYNA to Diagonal 1 02/26/19 -Continue amlodipine, Coreg, isosorbide mononitrate -Continue home atorvastatin -Patient has not followed up with cardiology since 06/05/2022 History of stroke -Aspirin and Plavix on hold for now due to possible need for thoracentesis -PT/OT consultation History of PFO -Monitor Tobacco abuse -Patient utilizes smokeless tobacco -Nicotine replacement therapy as available DVT prophylaxis -Eliquis CODE STATUS -DNR CCA with no intubation as per discussion on admission Time spent in the patient's overall evaluation,decision-making process, review of diagnostic data, adjustment of management, discussion with other providers, nursing nursing and ancillary staff involved in patient's care documentation, 51 minutes Charges/Coding Visit Charges Inpatient E&M: 70482 Subs Hosp L3
[2023-07-13 09:02] LABS: Mucous, Urine 0 SEEN /hpf (<or=2+); Squamous Epithelial Cells - UA 0 SEEN /hpf (0-5)
[2023-07-13 09:11] LABS: Color, Urine Yellow (Yellow); Glucose, Dipstick Normal (Normal); Ketone-Dipstick Negative (Negative); Leukocyte Esterase-Dipstick 25 /ul (Negative); Nitrite-Dipstick Negative (Negative); Occult Blood-Urine 25 /ul (Negative); Protein-Dipstick 30 mg/dl (Negative); Urine Clarity Clear (Clear); Urine Urobilinogen 1 mg/dl (Normal)
[2023-07-13 09:20] LABS: Urine Bilirubin Dipstick 1 mg/dL (Negative)
[2023-07-13 09:21] LABS: Bacteria 1+ /hpf (None Seen); Red Blood Cells-Urine 0-5 SEEN /hpf (0-5); White Blood Cells 0-5 SEEN /hpf (0-5)
[2023-07-13] MEDS: Menthol/Lanolin/Calamine/Znox 113 GM Tube 1 APPLIC TOPICAL ×2 (10:37→21:33)
[2023-07-13] MEDS: Carvedilol 6.25 MG Tablet PO ×2 (10:39→21:32)
[2023-07-13] MEDS: APIXABAN 5 MG TABLET PO ×2 (10:40→21:32)
[2023-07-13 10:43] LABS: Procalcitonin 0.15 ng/mL (0.00-0.09)
--- NOTE | 2023-07-13 10:56 | PN.RENAL_ITS ---
Subjective Subjective Not very responsive but he does answer yes or no to basic questions. Does not offer any complaints. Urine output about 1200 cc. WBC is noted to be increasing today. Breathing looks comfortable. Objective Data Objective Data Vital Signs: Vital Signs Temp Pulse Resp BP Pulse Ox O2 Del Method O2 Flow Rate 97.4 F L 67 18 127/89 H 99 Nasal Cannula 2 07/13/23 08:45 07/13/23 08:45 07/13/23 08:45 07/13/23 08:45 07/13/23 08:45 07/13/23 10:00 07/13/23 10:00 Oxygen Flow Rate (L/min) 2 Oxygen Delivery Method Nasal Cannula Weight: 83.7 kg Body Mass Index (BMI) 25.0 Intake & Output: Intake and Output for Last 24 Hours 07/11/23 07/12/23 07/13/23 23:59 23:59 23:59 Intake Total 460.85 / 460.85 477.07 / 477.07 50 / 50 Output Total 1300 / 1300 1200 / 1400 200 / 200 Balance -839.15 / -839.15 -722.93 / -922.93 -150 / -150 Lab / Micro Data 07/13/23 05:35 07/13/23 05:35 Labs: Laboratory Results - last 24 hr 07/12/23 06:35: POC Glucose 189 H 07/12/23 11:15: POC Glucose 157 H 07/12/23 16:33: POC Glucose 166 H 07/12/23 21:31: POC Glucose 167 H 07/13/23 05:35: WBC 18.4 H, RBC 3.77 L, Hgb 10.6 L, Hct 34.3 L, MCV 91.0, MCH 28.1, MCHC 30.9 L, RDW Std Deviation 47.1 H, RDW Coeff of Ave 14.1, Plt Count 220, MPV 12.9 H, Immature Gran % (Auto) 1.000 H, Neut % (Auto) 90.1 H, Lymph % (Auto) 3.0 L, [place] % (Auto) 5.7, Eos % (Auto) 0.0, Baso % (Auto) 0.2, Absolute Neuts (auto) 16.6 H, Absolute Lymphs (auto) 0.55 L, Nucleated RBC % 0.1, Differential Comment SCANNED, Sodium 141, Potassium 4.4, Chloride 109 H, Carbon Dioxide 21.0, Anion Gap 11, BUN 54 H, Creatinine 4.05 H, Estim Creat Clear Calc 20.76, Est GFR (MDRD) Af Amer 19 L, Est GFR (MDRD) Non-Af 16 L, BUN/Creatinine Ratio 13.3, Glucose 157 H, Calcium 8.2 L 07/13/23 06:14: POC Glucose 157 H 07/13/23 08:55: Urine Color Yellow, Urine Clarity Clear, Urine pH 6.0, Ur Speci fic [place] 1.020, Urine Protein 30 H, Urine Glucose (UA) Normal, Urine Ketones Negative, Urine Occult Blood 25 H, Urine Nitrite Negative, Urine Bilirubin 1 H, Urine Urobilinogen 1 H, Ur Leukocyte Esterase 25 H, Urine RBC 0-5 SEEN, Urine WBC 0-5 SEEN, Ur Squamous Epith Cells 0 SEEN, Urine Bacteria 1+, Urine Mucus 0 SEEN 07/13/23 09:27: Procalcitonin 0.15 H Physical Exam Narrative Alert awake oriented x 3, no acute distress s1s2 no murmurs lungs clear anteriorly, diminished breath sounds posterior bases, no rales noted abdomen soft, nontender no edema Assessment & Plan Assessment/Plan (1) RASHAWN (acute kidney injury): PLAN: 62-year-old male with a past medical history significant for type 2 diabetes mellitus, coronary artery disease, heart failure with reduced EF 25%, stroke, severe pulmonary hypertension who presented to the emergency room on 07/10 with complaints of shortness of breath. Work-up in emergency room included CT of chest which showed large bilateral pleural effusions, BNP elevated, D-dimer elevated on heparin drip. - RASHAWN superimposed on chronic kidney disease stage 4. previous serologic work up ANCA, anti GBM, c3 c4 normal. JALEN negative. - Repeat echo: Severe left ventricular systolic dysfunction, EF 25%, stage III diastolic dysfunction, moderate global right ventricular systolic dysfunction, severe pulmonary hypertension, moderate size left pleural effusion, severe biatrial dilatation, moderately severe tricuspid valve insufficiency, moderate m itral valve insufficiency (previous echo with low EF, elevated PA pressures). B/L large pleural effusions. - + DVT right femoral, popliteal, tibioperoneal veins and D Dimer high, on anticoagulation Plan. Baseline creatinine usually between 2.5-3.0. Creatinine today is about the same as yesterday. Hopefully peak. Initial presentation of shortness of breath could be related to PE. He does have moderate amount of effusions. Eventually will need to go back on diuretics but currently on hold due to acute renal failure. Sepsis work-up initiated by primary in view of worsening leukocytosis. (2) Chronic renal failure: QUALIFIERS: Chronic kidney disease stage: stage 4 (severe) Qualified Code(s): N18.4 - Chronic kidney disease, stage 4 (severe)
[2023-07-13 11:01] LABS: Bedside Glucose 141 mg/dL (74-106)
--- NOTE | 2023-07-13 12:09 | CASEMGMT ---
VANNA CM: Call received from hannah Curran CM with [facility]. Per Bina, pt has been on a Health and Safety Action Plan due pt's noncompliance re: not taking his medications, obtaining refills, or attending physician appointments. Per Bina, pt has hx of repeated falls at home, and use of medical alert button for lift assist. Interventions have included the implementation of a medication dispenser and a weekly nurse visit to fill the dispenser. Pt is known to have bed bugs and they have sent an bottom ironer to the home to treat for these. Pt had requested assistance from them to get a large place to live so their housing navigator had met with him and was working [facility] [place] to assist with this process. Pt does have transportation available through his insurance and his rn case manager hospice to attend appointments. Informed Bina of [place] plan of home health for SN, PT/OT services through [facility]. 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 David Cowart RN CM
[2023-07-13 17:30] LABS: Bedside Glucose 201 mg/dL (74-106)
[2023-07-13] MEDS: Mirtazapine 15 MG Tablet PO (21:32)
[2023-07-13] MEDS: Atorvastatin Calcium 40 MG Tablet PO (21:32)
[2023-07-13 21:34] LABS: Bedside Glucose 113 mg/dL (74-106)
[2023-07-14 02:11] VITALS: BP 99/72; PULSE 68; RESP 20; TEMP 36; O2SAT 98
[2023-07-14 05:53] VITALS: BMI 24.0
[2023-07-14 06:02] VITALS: BP 115/76; PULSE 65; RESP 18; TEMP 36.4; O2SAT 99
[2023-07-14] MEDS: 0.9% Saline Lock 10 ML Syringe IV (06:28)
[2023-07-14 06:49] LABS: Bedside Glucose 127 mg/dL (74-106)
[2023-07-14 07:02] LABS: Absolute Lymphocyte Count 0.74 X10^3/uL (0.83-4.51); Absolute Neutrophil Count 13.8 X10^3/uL (2.0-7.7); Basophil# 0.02 X10^3/uL; Basophil% 0.1 % (0-1); Hematocrit 35.2 % (40-54); Hemoglobin 10.8 g/dL (13.0-16.5); Lymphocyte # 0.74 X10^3/ul (0.83-4.51); Lymphocyte % 4.7 % (19-41); Mean Corp Hgb Conc 30.7 g/dL (32-36); Mean Corpuscular Hgb 28.2 pg (27.0-32.0); Mean Corpuscular Volume 91.9 fL (80-94); Monocyte# 1.07 X10^3/uL; Monocyte% 6.8 % (0-10); NRBC Flagged by Analyzer 0 % (0-5); Neutrophil # 13.79 X10^3/uL (2.7-7.7); Neutrophil % 87.4 % (47-70); Platelet Count 207 K/mm3 (150-450); RBC Distribution Width CV 14.2 % (11.6-14.6); RBC Distribution Width SD 47.7 fl (35.1-43.9); Red Blood Count 3.83 M/mm3 (4.6-6.2); White Blood Count 15.8 K/mm3 (4.4-11.0)
[2023-07-14 07:08] VITALS: O2SAT 95
[2023-07-14 07:45] LABS: Magnesium 2.2 mg/dL (1.6-2.6); Phosphorus 4.6 mg/dL (2.5-4.9)
[2023-07-14 07:48] LABS: Anion Gap 10 (5-15); BUN 66 mg/dL (7-18); BUN/Creat Ratio 16.5 RATIO (10-20); Calcium,Total 8.1 mg/dL (8.5-10.1); Chloride 110 mmol/L (98-107); Creatinine, Serum 3.99 mg/dL (0.70-1.30); EST Glomerular Filtration Rate 16 mL/min (>60); Est Glom Filt Rate - Afr Amer 20 mL/min (>60); Estimated Creatinine Clearance 21.07 ml/min; Glucose 131 mg/dL (74-106); Potassium 4.3 mmol/L (3.5-5.1); Sodium Level 141 mmol/L (136-145)
--- NOTE | 2023-07-14 08:02 | PCM.PN.HOSP ---
Reason for Visit Reason for Visit: Diagnoses Pleural effusion, not elsewhere classified (07/11/23) Acute kidney failure, unspecified (07/11/23) Chronic kidney disease, stage 4 (severe) (07/11/23) Shortness of breath (07/11/23) Other specified abnormal findings of blood chemistry (07/11/23) Subjective Subjective Patient having persistent hiccups today but has no Other acute complaints aside from not bowel movement in several days Objective Data Objective Data Vital Signs: Vital Signs Temp Pulse Resp BP Pulse Ox O2 Del Method O2 Flow Rate 97.6 F L 65 18 115/76 95 Nasal Cannula 1 07/14/23 06:02 07/14/23 06:02 07/14/23 06:02 07/14/23 06:02 07/14/23 07:08 07/14/23 07:40 07/14/23 07:40 Oxygen Flow Rate (L/min) 1 Oxygen Delivery Method Nasal Cannula Weight: 80.5 kg Body Mass Index (BMI) 24.0 Intake & Output: Intake and Output for Last 24 Hours 07/12/23 07/13/23 07/14/23 23:59 23:59 23:59 Intake Total 477.07 / 477.07 200 / 200 Output Total 1200 / 1400 750 / 750 150 / 150 Balance -722.93 / -922.93 -550 / -550 -150 / -150 Lab / Micro Data 07/14/23 05:48 07/14/23 05:48 Labs: Laboratory Results - last 24 hr 07/13/23 08:55: Urine Color Yellow, Urine Clarity Clear, Urine pH 6.0, Ur Specific [place] 1.020, Urine Protein 30 H, Urine Glucose (UA) Normal, Urine Ketones Negative, Urine Occult Blood 25 H, Urine Nitrite Negative, Urine Bilirubin 1 H, Urine Urobilinogen 1 H, Ur Leukocyte Esterase 25 H, Urine RBC 0-5 SEEN, Urine WBC 0-5 SEEN, Ur Squamous Epith Cells 0 SEEN, Urine Bacteria 1+, Urine Mucus 0 SEEN 07/13/23 09:27: Procalcitonin 0.15 H 07/13/23 10:36: POC Glucose 141 H 07/13/23 17:06: POC Glucose 201 H 07/13/23 21:12: POC Glucose 113 H 07/14/23 05:48: WBC 15.8 H, RBC 3.83 L, Hgb 10.8 L, Hct 35.2 L, MCV 91.9, MCH 28.2, MCHC 30.7 L, RDW Std Deviation 47.7 H, RDW Coeff of Ave 14.2, Plt Count 207, MPV 13.0 H, Immature Gran % (Auto) 1.000 H, Neut % (Auto) 87.4 H, Lymph % (Auto) 4.7 L, [place] % (Auto) 6.8, Eos % (Auto) 0.0, Baso % (Auto) 0.1, Absolute Neuts (auto) 13.8 H, Absolute Lymphs (auto) 0.74 L, Nucleated RBC % 0, Sodium 141, Potassium 4.3, Chloride 110 H, Carbon Dioxide 21.0, Anion Gap 10, BUN 66 H, Creatinine 3.99 H, Estim Creat Clear Calc 21.07, Est GFR (MDRD) Af Amer 20 L, Est GFR (MDRD) Non-Af 16 L, BUN/Creatinine Ratio 16.5, Glucose 131 H, Calcium 8.1 L, Phosphorus 4.6, Magnesium 2.2 07/14/23 06:26: POC Glucose 127 H Physical Exam Narrative General: Awake, alert, no apparent distress HEENT: Atraumatic, normocephalic Eyes: Anicteric, normal conjunctiva, extraocular movements grossly intact Neck: Supple Respiratory: Still diminished at the bases Cardiovascular: Regular rate and rhythm GI: Soft, nontender, nondistended Extremities: No edema Musculoskeletal: Moving all extremities Neuro: No overt focal neurological deficits, frequent hiccups Skin: No rashes appreciated Psych: More interactive and cooperative today Assessment & Plan Assessment/Plan (1) RASHAWN (acute kidney injury): (2) SOB (shortness of breath): (3) D-dimer, elevated: (4) Bilateral pleural effusion: PLAN: Plan Acute on chronic heart failure with reduced ejection fraction -Patient is not compliant with salt restriction or fluid restriction or taking his medications -Has large bilateral pleural effusions likely related to heart failure -We will start Lasix 40 mg IV push twice daily however may need to transition to Lasix drip depending on diuresis -We will check echocardiogram -Last echocardiogram from 12/22/2022 showed moderately severe left global ventricular dysfunction with an EF of 35%, severely dilated right ventricle with severe biatrial enlargement, severe tricuspid valve insufficiency, pulmonary artery systolic pressure of 90 mmHg and moderate mitral valve insufficiency -Fluid restriction to 1500 cc daily -Salt restricted diet -Daily weights -We will cycle cardiac enzymes -07/11: Presented with increasing shortness of breath, had worsening kidney function felt to be cardiorenal and bilateral pleural effusions. Initially thought may be PE given D-dimer however she may have alternate causes for symptoms especially given lack of tachycardia and hypoxia and only subjective shortness of breath with extent of effusions. BNP found to be 1600. Rechecking echocardiogram, daily weights, I's and O's, continue IV Lasix -07/12: Holding IV Lasix given kidney function, monitor O2, daily weights, I's and O's. Echocardiogram with EF of 25% and stage III diastolic dysfunction with RVSP of 61 and moderately severe tricuspid valve insufficiency of 3+, similar to previous but with slightly lower EF -07/13: Patient -1400 L, will trend weight, Lasix held with worsening kidney failure, respiratory status does seem stable at this time -07/14: Patient is down in weight from admission, saturating well Leukocytosis -07/13: No localizing signs or symptoms of infection but patient very poor historian and not very forthcoming, will check Pro-Hiram, will check UA and culture and blood cultures and assess for any possible underlying infectious etiology, will hold off on empiric antibiotics at this time unless clinical status changes or labs suggestive of underlying infection -07/14: Pro-Hiram 0.15, not profoundly elevated, urine with 1+ bacteria however 0 white blood cells, no nitrate, minimal leuk esterase. White blood cell count downtrending despite no antibiotics, continue to monitor cultures and clinical status RASHAWN on CKD stage IV and urinary retention -Patient has not followed up as an outpatient with nephrology -Avoid nephrotoxins as able -Suspect cardiorenal syndrome and hoping this improves with diuresis -Home diuretics -IV diuretics ordered however may need to transition to Lasix drip -Nephrology consultation -07/11: Very minimally improved from yesterday, may be cardiorenal but given minimal improvement with diuresis will get urine studies. Nephro consult pending, will also obtain kidney ultrasound -07/12: Worsened kidney function today, Lasix held, nephrology following, retroperitoneal ultrasound with increased echogenicity of bilateral kidneys compatible with medical renal disease. Patient was also found to be retaining urine yesterday multiple times and ultimately Trejo catheter placed -07/13: Worsened again today despite Lasix being held, when patient presented FEUrea was 45.3% indicating intrinsic in nature, rechecking UA and checking urine culture, evaluating for any underlying infection, nephrology following -07/14: Minimally improved creatinine from yesterday, nephrology following, patient still fairly off from baseline Shortness of breath without hypoxia -Likely multifactorial with heart failure and bilateral pleural effusions -Not currently oxygen dependent -Monitor clinically -07/11: On heparin drip however suspect this is heart failure in nature, continue IV Lasix, will obtain lower extremity duplexes and DC heparin drip if negative -07/12: Transitioned to oral Eliquis, does feel somewhat better today, had a hold a.m. Lasix -07/13: Respiratory status stable, on Eliquis -07/14: Continues to improve Hiccups -Possibly uremia, also hasn't had BM so abd distension could contribute -Treat underlying illness, schedule miralax D-dimer elevation?found to have lower extremity DVTs -D-dimer was 1.93 in the setting of renal failure -Highly doubtful for PE however has history of pulmonary hypertension -Unable to check V/Q at this time due to significant bilateral pleural effusions -Unable to obtain CTA of the chest due to chronic renal disease -We will start heparin drip with bolus for now and monitor clinically if clinically improved with diuresis may be able to obtain VQ scan or discontinue as likelihood for the elevation of this is related to his renal dysfunction -07/11: Doubt we will be able to obtain VQ scan and unable to get CTA, will obtain lower extremity duplexes and if negative will DC heparin drip especially given this is much less likely PE with other clinical measures/picture -07/12: Venous duplex noted right acute DVT Right femoral vein, popliteal vein, tibioperoneal trunk vein, reasonable to suspect component of PE leading to his shortness of breath/worsening shortness of breath. Transition from heparin to Eliquis. -07/14: Doing well on Eliquis Bilateral large pleural effusions -Anticipate this is related to heart failure -Hoping this improves with diuresis -We will hold aspirin and Plavix in case he does need a thoracentesis -Continue to monitor and pursue thoracentesis if this does not improve with diuresis -These do appear to be larger than noted on his CT of abdomen pelvis done on 11/17/2022 -07/11: Continue diuresis, do anticipate this will continue to improve. 100% or high 90s on room air without tachypnea or tachycardia -07/12: Holding Lasix today given kidney function, daily weights, I's and O's, reports feeling better today -07/13: As above -07/14: Down in weight, still somewhat diminished at the bases but reports his breathing is feeling better, diuresis held given kidney function, continue monitor clinically and adjust as tolerated Debility -PT/OT consultation -Case management/social work consultation -07/12: Patient work with PT/OT again, would like to go home however will need to assess safe ability to do so when medically ready -07/13: Presently [facility] recommended History of ischemic cardiomyopathy -Last documented EF was 35% -See treatment as above -Continue carvedilol -Continue isosorbide mononitrate -Will need cardiology follow-up after discharge -07/11: As above, troponins negative on arrival, do not suspect any ACS as contributory component, echo pending -07/12: As above, no wall motion abnormalities, no further cardiac work-up at this time, suspect worsened EF is due to noncompliance Pulmonary artery hypertension -Suspect who group 2 -Diuresis as above CAD/HTN/HPL -Hold aspirin and Plavix in case patient needs thoracentesis -PTCA/REYNA to Diagonal 1 02/26/19 -Continue amlodipine, Coreg, isosorbide mononitrate -Continue home atorvastatin -Patient has not followed up with cardiology since 06/05/2022 History of stroke -Aspirin and Plavix on hold for now due to possible need for thoracentesis -PT/OT consultation History of PFO -Monitor Tobacco abuse -Patient utilizes smokeless tobacco -Nicotine replacement therapy as available DVT prophylaxis -Eliquis CODE STATUS -DNR CCA with no intubation as per discussion on admission Time spent in the patient's overall evaluation,decision-making process, review of diagnostic data, adjustment of management, discussion with other providers, nursing nursing and ancillary staff involved in patient's care documentation, 40 minutes Charges/Coding Visit Charges Inpatient E&M: 97026 Subs Hosp L2
--- NOTE | 2023-07-14 08:43 | PCM.PN.REN ---
Subjective Subjective Following for RASHAWN on CKD. The patient denies chest pain. There is no shortness of breath at rest. He denies nausea, vomiting, diarrhea. Objective Data Objective Data Vital Signs: Vital Signs Temp Pulse Resp BP Pulse Ox O2 Del Method O2 Flow Rate 97.6 F L 65 18 115/76 95 Nasal Cannula 1 07/14/23 06:02 07/14/23 06:02 07/14/23 06:02 07/14/23 06:02 07/14/23 07:08 07/14/23 07:40 07/14/23 07:40 Oxygen Flow Rate (L/min) 1 Oxygen Delivery Method Nasal Cannula Weight: 80.5 kg Body Mass Index (BMI) 24.0 Intake & Output: Intake and Output for Last 24 Hours 07/12/23 07/13/23 07/14/23 23:59 23:59 23:59 Intake Total 477.07 / 477.07 200 / 200 Output Total 1200 / 1400 750 / 750 150 / 150 Balance -722.93 / -922.93 -550 / -550 -150 / -150 Lab / Micro Data 07/14/23 05:48 07/14/23 05:48 Labs: Laboratory Results - last 24 hr 07/13/23 08:55: Urine Color Yellow, Urine Clarity Clear, Urine pH 6.0, Ur Specific [place] 1.020, Urine Protein 30 H, Urine Glucose (UA) Normal, Urine Ketones Negative, Urine Occult Blood 25 H, Urine Nitrite Negative, Urine Bilirubin 1 H, Urine Urobilinogen 1 H, Ur Leukocyte Esterase 25 H, Urine RBC 0-5 SEEN, Urine WBC 0-5 SEEN, Ur Squamous Epith Cells 0 SEEN, Urine Bacteria 1+, Urine Mucus 0 SEEN 07/13/23 09:27: Procalcitonin 0.15 H 07/13/23 10:36: POC Glucose 141 H 07/13/23 17:06: POC Glucose 201 H 07/13/23 21:12: POC Glucose 113 H 07/14/23 05:48: WBC 15.8 H, RBC 3.83 L, Hgb 10.8 L, Hct 35.2 L, MCV 91.9, MCH 28.2, MCHC 30.7 L, RDW Std Deviation 47.7 H, RDW Coeff of Ave 14.2, Plt Count 207, MPV 13.0 H, Immature Gran % (Auto) 1.000 H, Neut % (Auto) 87.4 H, Lymph % (Auto) 4.7 L, [place] % (Auto) 6.8, Eos % (Auto) 0.0, Baso % (Auto) 0.1, Absolute Neuts (auto) 13.8 H, Absolute Lymphs (auto) 0.74 L, Nucleated RBC % 0, Sodium 141, Potassium 4.3, Chloride 110 H, Carbon Dioxide 21.0, Anion Gap 10, BUN 66 H, Creatinine 3.99 H, Estim Creat Clear Calc 21.07, Est GFR (MDRD) Af Amer 20 L, Est GFR (MDRD) Non-Af 16 L, BUN/Creatinine Ratio 16.5, Glucose 131 H, Calcium 8.1 L, Phosphorus 4.6, Magnesium 2.2 07/14/23 06:26: POC Glucose 127 H Physical Exam Narrative Alert awake oriented x 3, no acute distress Normal S1, S2. There is a 3/6 systolic murmur. Lungs are clear to auscultation except for mild decreased breath sound at left lower lobe abdomen soft, nontender no edema Assessment & Plan Assessment/Plan (1) RASHAWN (acute kidney injury): PLAN: Impression/Plan: 62-year-old male with a past medical history significant for type 2 diabetes mellitus, coronary artery disease, heart failure with reduced EF 25%, stroke, severe pulmonary hypertension who presented to the emergency room on 07/10 with complaints of shortness of breath. Work-up in emergency room included CT of chest which showed large bilateral pleural effusions, BNP elevated, D-dimer elevated on heparin drip. The patient is being treated for decompensated heart failure with reduced ejection fraction. Nephrology is following for RASHAWN on CKD. Acute kidney injury on chronic kidney disease Stage 4/A2. Baseline serum creatinine has been around 2.5 to 3.0 mg/dL. I suspect patient has underlying diabetic kidney disease given persistent proteinuria in the past. Previous serologic work up including ANCA, anti GBM, C3 and C4 are normal. JALEN is negative. Suspect patient has cardiorenal RASHAWN on CKD. Serum creatinine has increased from 3.34 mg/dL on 07/10/2023 up to 4.05 mg/dL yesterday on 07/13/2023. Renal function remains relatively stable today with creatinine of 3.99 mg/dL. Despite stopping furosemide since 07/12/2023, his weight has not increased. Weight has decreased from 83.7 kg on presentation down to 80.5 kg today. The patient does not appear to be volume overloaded on my exam. Therefore, I would recommend holding diuretic for another day. We will reassess volume status, renal function, and electrolytes again tomorrow. (2) Chronic renal failure: QUALIFIERS: Chronic kidney disease stage: stage 4 (severe) Qualified Code(s): N18.4 - Chronic kidney disease, stage 4 (severe)
[2023-07-14 09:50] VITALS: BP 139/99; PULSE 70; RESP 18; TEMP 36.3; O2SAT 97
[2023-07-14] MEDS: Menthol/Lanolin/Calamine/Znox 113 GM Tube 1 APPLIC TOPICAL ×2 (09:54→22:03)
[2023-07-14] MEDS: APIXABAN 5 MG TABLET PO ×2 (09:55→22:03)
[2023-07-14] MEDS: Carvedilol 6.25 MG Tablet PO ×2 (09:55→22:03)
[2023-07-14] MEDS: Insulin Lispro 100 UNIT/ML INSULN.PEN SC (11:37)
[2023-07-14 11:56] LABS: Bedside Glucose 157 mg/dL (74-106)
[2023-07-14 15:32] VITALS: BP 139/97; PULSE 77; RESP 18; TEMP 36.4; O2SAT 99
[2023-07-14] MEDS: Polyethylene Glycol 3350 17 GM PACKET PO ×2 (15:35→22:06)
[2023-07-14 17:33] LABS: Bedside Glucose 149 mg/dL (74-106)
[2023-07-14 21:30] VITALS: BP 116/87; PULSE 71; RESP 18; TEMP 36.4; O2SAT 100
[2023-07-14] MEDS: Mirtazapine 15 MG Tablet PO (22:03)
[2023-07-14] MEDS: Atorvastatin Calcium 40 MG Tablet PO (22:03)
[2023-07-14] MEDS: Metoclopramide 5 MG TABLET PO (22:07)
[2023-07-15] VITALS (8 sets, daily range): BP systolic 114–140; BP diastolic 87–101; PULSE 66–74; RESP 12–18; TEMP 36.3–36.9; O2SAT 94–100; BMI 24.0
[2023-07-15 00:25] LABS: Bedside Glucose 143 mg/dL (74-106)
[2023-07-15] MEDS: Metoclopramide 5 MG TABLET PO ×3 (06:18→21:13)
[2023-07-15 06:39] LABS: Bedside Glucose 110 mg/dL (74-106)
[2023-07-15 06:46] LABS: Absolute Lymphocyte Count 0.71 X10^3/uL (0.83-4.51); Absolute Neutrophil Count 7.8 X10^3/uL (2.0-7.7); Basophil# 0.02 X10^3/uL; Basophil% 0.2 % (0-1); Eosinophil# 0.05 X10^3/uL; Eosinophils% 0.5 % (0-5); Hematocrit 33.3 % (40-54); Hemoglobin 10.5 g/dL (13.0-16.5); Lymphocyte # 0.71 X10^3/ul (0.83-4.51); Lymphocyte % 7.5 % (19-41); Mean Corp Hgb Conc 31.5 g/dL (32-36); Mean Corpuscular Hgb 28.5 pg (27.0-32.0); Mean Corpuscular Volume 90.5 fL (80-94); Monocyte# 0.88 X10^3/uL; Monocyte% 9.3 % (0-10); NRBC Flagged by Analyzer 0 % (0-5); Neutrophil % 82.2 % (47-70); Platelet Count 179 K/mm3 (150-450); RBC Distribution Width CV 14.1 % (11.6-14.6); RBC Distribution Width SD 46.5 fl (35.1-43.9); Red Blood Count 3.68 M/mm3 (4.6-6.2); White Blood Count 9.5 K/mm3 (4.4-11.0)
[2023-07-15 07:03] LABS: Anion Gap 9 (5-15); BUN 68 mg/dL (7-18); BUN/Creat Ratio 18.3 RATIO (10-20); Calcium,Total 7.7 mg/dL (8.5-10.1); Chloride 111 mmol/L (98-107); Creatinine, Serum 3.71 mg/dL (0.70-1.30); EST Glomerular Filtration Rate 18 mL/min (>60); Est Glom Filt Rate - Afr Amer 21 mL/min (>60); Estimated Creatinine Clearance 22.66 ml/min; Glucose 115 mg/dL (74-106); Potassium 4.1 mmol/L (3.5-5.1); Sodium Level 141 mmol/L (136-145)
--- NOTE | 2023-07-15 07:32 | PN.HOSP_ITS ---
Reason for Visit Reason for Visit: Diagnoses Pleural effusion, not elsewhere classified (07/11/23) Acute kidney failure, unspecified (07/11/23) Chronic kidney disease, stage 4 (severe) (07/11/23) Shortness of breath (07/11/23) Other specified abnormal findings of blood chemistry (07/11/23) Subjective Subjective Hiccups NOAC seen weaning, breathing roughly the same per patient, denies any other focal complaints, mostly wants to sleep Objective Data Objective Data Vital Signs: Vital Signs Temp Pulse Resp BP Pulse Ox O2 Del Method O2 Flow Rate 97.7 F L 69 18 133/99 H 100 Nasal Cannula 1 07/15/23 03:30 07/15/23 03:30 07/15/23 03:30 07/15/23 03:30 07/15/23 03:30 07/15/23 03:30 07/15/23 03:30 Oxygen Flow Rate (L/min) 1 Oxygen Delivery Method Nasal Cannula Weight: 80.2 kg Body Mass Index (BMI) 24.0 Intake & Output: Intake and Output for Last 24 Hours 07/13/23 07/14/23 07/15/23 23:59 23:59 23:59 Intake Total 200 / 200 350 / 425 75 / 75 Output Total 750 / 750 575 / 725 400 / 400 Balance -550 / -550 -225 / -300 -325 / -325 Lab / Micro Data 07/15/23 06:00 07/15/23 06:00 Labs: Laboratory Results - last 24 hr 07/14/23 05:48: Sodium 141, Potassium 4.3, Chloride 110 H, Carbon Dioxide 21.0, Anion Gap 10, BUN 66 H, Creatinine 3.99 H, Estim Creat Clear Calc 21.07, Est GFR (MDRD) Af Amer 20 L, Est GFR (MDRD) Non-Af 16 L, BUN/Creatinine Ratio 16.5, Glucose 131 H, Calcium 8.1 L, Phosphorus 4.6, Magnesium 2.2 07/14/23 11:35: POC Glucose 157 H 07/14/23 17:15: POC Glucose 149 H 07/14/23 22:18: POC Glucose 143 H 07/15/23 06:00: WBC 9.5, RBC 3.68 L, Hgb 10.5 L, Hct 33.3 L, MCV 90.5, MCH 28.5, MCHC 31.5 L, RDW Std Deviation 46.5 H, RDW Coeff of Ave 14.1, Plt Count 179, MPV 13.0 H, Immature Gran % (Auto) 0.300, Neut % (Auto) 82.2 H, Lymph % (Auto) 7.5 L , [place] % (Auto) 9.3, Eos % (Auto) 0.5, Baso % (Auto) 0.2, Absolute Neuts (auto) 7.8 H, Absolute Lymphs (auto) 0.71 L, Nucleated RBC % 0, Sodium 141, Potassium 4.1, Chloride 111 H, Carbon Dioxide 21.0, Anion Gap 9, BUN 68 H, Creatinine 3.71 H, Estim Creat Clear Calc 22.66, Est GFR (MDRD) Af Amer 21 L, Est GFR (MDRD) Non-Af 18 L, BUN/Creatinine Ratio 18.3, Glucose 115 H, Calcium 7.7 L 07/15/23 06:16: POC Glucose 110 H Micro: Microbiology 07/13/23 08:55 Urine Catheter - Trejo Urine Culture - Preliminary GPC Poss Enterococcus sp Physical Exam Narrative General: Resting comfortably, wakes up and answers questions and goes back to sleep HEENT: Atraumatic, normocephalic Eyes: Anicteric, normal conjunctiva, extraocular movements grossly intact Neck: Supple Respiratory: Aeration does seem somewhat improved in the bases Cardiovascular: Regular rate and rhythm GI: Soft, nontender, nondistended Extremities: No edema Musculoskeletal: Moving all extremities Neuro: No overt focal neurological deficits, not presently hiccuping Skin: No rashes appreciated Psych: More interactive and cooperative today Assessment & Plan Assessment/Plan (1) RASHAWN (acute kidney injury): (2) SOB (shortness of breath): (3) D-dimer, elevated: (4) Bilateral pleural effusion: PLAN: Plan Acute on chronic heart failure with reduced ejection fraction -Patient is not compliant with salt restriction or fluid restriction or taking his medications -Has large bilateral pleural effusions likely related to heart failure -We will start Lasix 40 mg IV push twice daily however may need to transition to Lasix drip depending on diuresis -We will check echocardiogram -Last echocardiogram from 12/22/2022 showed moderately severe left global ventricular dysfunction with an EF of 35%, severely dilated right ventricle with severe biatrial enlargement, severe tricuspid valve insufficiency, pulmonary artery systolic pressure of 90 mmHg and moderate mitral valve insufficiency -Fluid restriction to 1500 cc daily -Salt restricted diet -Daily weights -We will cycle cardiac enzymes -07/11: Presented with increasing shortness of breath, had worsening kidney function felt to be cardiorenal and bilateral pleural effusions. Initially thought may be PE given D-dimer however she may have alternate causes for symptoms especially given lack of tachycardia and hypoxia and only subjective shortness of breath with extent of effusions. BNP found to be 1600. Rechecking echocardiogram, daily weights, I's and O's, continue IV Lasix -07/12: Holding IV Lasix given kidney function, monitor O2, daily weights, I's and O's. Echocardiogram with EF of 25% and stage III diastolic dysfunction with RVSP of 61 and moderately severe tricuspid valve insufficiency of 3+, similar to previous but with slightly lower EF -07/13: Patient -1400 L, will trend weight, Lasix held with worsening kidney failure, respiratory status does seem stable at this time -07/14: Patient is down in weight from admission, saturating well -07/15: Weight roughly the same as yesterday, patient not hypoxic, patient negative roughly 2.5 L since admission, Lasix has been held due to kidney worsening. There was some concern that he may have had a bit of an increased work of breathing today, Lasix still held, gave verbal that patient does have increased work of breathing continues BiPAP Leukocytosis -07/13: No localizing signs or symptoms of infection but patient very poor historian and not very forthcoming, will check Pro-Hiram, will check UA and culture and blood cultures and assess for any possible underlying infectious etiology, will hold off on empiric antibiotics at this time unless clinical status changes or labs suggestive of underlying infection -07/14: Pro-Hiram 0.15, not profoundly elevated, urine with 1+ bacteria however 0 white blood cells, no nitrate, minimal leuk esterase. White blood cell count downtrending despite no antibiotics, continue to monitor cultures and clinical status -07/15: Resolved without antibiotics, blood cultures no growth to date and urine culture only 11-25,000 colonies growing but without profound UA and improvement independent of antibiotics do not think this is a clinical infection RASHAWN on CKD stage IV and urinary retention -Patient has not followed up as an outpatient with nephrology -Avoid nephrotoxins as able -Suspect cardiorenal syndrome and hoping this improves with diuresis -Home diuretics -IV diuretics ordered however may need to transition to Lasix drip -Nephrology consultation -07/11: Very minimally improved from yesterday, may be cardiorenal but given minimal improvement with diuresis will get urine studies. Nephro consult pending, will also obtain kidney ultrasound -07/12: Worsened kidney function today, Lasix held, nephrology following, retroperitoneal ultrasound with increased echogenicity of bilateral kidneys compatible with medical renal disease. Patient was also found to be retaining urine yesterday multiple times and ultimately Trejo catheter placed -07/13: Worsened again today despite Lasix being held, when patient presented FEUrea was 45.3% indicating intrinsic in nature, rechecking UA and checking urine culture, evaluating for any underlying infection, nephrology following -07/14: Minimally improved creatinine from yesterday, nephrology following, patient still fairly off from baseline -07/15: BUN continues to uptrend but creatinine did improve some today, discussed with nephrology, continuing current management Shortness of breath without hypoxia -Likely multifactorial with heart failure and bilateral pleural effusions -Not currently oxygen dependent -Monitor clinically -07/11: On heparin drip however suspect this is heart failure in nature, continue IV Lasix, will obtain lower extremity duplexes and DC heparin drip if negative -07/12: Transitioned to oral Eliquis, does feel somewhat better today, had a hold a.m. Lasix -07/13: Respiratory status stable, on Eliquis -07/14: Continues to improve Hiccups -Possibly uremia, also hasn't had BM so abd distension could contribute -Treat underlying illness, schedule miralax -07/15: Hiccups were so persistent it was almost affecting patient's ability to swallow, small dose of Reglan started to attempt to help this, avoided gabapentin given creatinine, hiccups have now been intermittent instead of persistent, continue present medication regimen D-dimer elevation?found to have lower extremity DVTs -D-dimer was 1.93 in the setting of renal failure -Highly doubtful for PE however has history of pulmonary hypertension -Unable to check V/Q at this time due to significant bilateral pleural effusions -Unable to obtain CTA of the chest due to chronic renal disease -We will start heparin drip with bolus for now and monitor clinically if clinically improved with diuresis may be able to obtain VQ scan or discontinue as likelihood for the elevation of this is related to his renal dysfunction -07/11: Doubt we will be able to obtain VQ scan and unable to get CTA, will obtain lower extremity duplexes and if negative will DC heparin drip especially given this is much less likely PE with other clinical measures/picture -07/12: Venous duplex noted right acute DVT Right femoral vein, popliteal vein, tibioperoneal trunk vein, reasonable to suspect component of PE leading to his shortness of breath/worsening shortness of breath. Transition from heparin to Eliquis. -07/14: Doing well on Eliquis -07/15: Continue 10 twice daily of Eliquis with plan to decrease to 5 twice daily when appropriate Bilateral large pleural effusions -Anticipate this is related to heart failure -Hoping this improves with diuresis -We will hold aspirin and Plavix in case he does need a thoracentesis -Continue to monitor and pursue thoracentesis if this does not improve with diuresis -These do appear to be larger than noted on his CT of abdomen pelvis done on 11/17/2022 -07/11: Continue diuresis, do anticipate this will continue to improve. 100% or high 90s on room air without tachypnea or tachycardia -07/12: Holding Lasix today given kidney function, daily weights, I's and O's, reports feeling better today -07/13: As above -07/14: Down in weight, still somewhat diminished at the bases but reports his breathing is feeling better, diuresis held given kidney function, continue monitor clinically and adjust as tolerated Debility -PT/OT consultation -Case management/social work consultation -07/12: Patient work with PT/OT again, would like to go home however will need to assess safe ability to do so when medically ready -07/13: Presently SNF recommended -07/15: Patient would not work with physical therapy yesterday, will need to encourage this to maintain strength and suspect patient will likely qualify for placement. Anticipate patient may be ready for DC early in the week whether home or to SNF History of ischemic cardiomyopathy -Last documented EF was 35% -See treatment as above -Continue carvedilol -Continue isosorbide mononitrate -Will need cardiology follow-up after discharge -07/11: As above, troponins negative on arrival, do not suspect any ACS as contributory component, echo pending -07/12: As above, no wall motion abnormalities, no further cardiac work-up at this time, suspect worsened EF is due to noncompliance Pulmonary artery hypertension -Suspect who group 2 -Diuresis as above CAD/HTN/HPL -Hold aspirin and Plavix in case patient needs thoracentesis -PTCA/REYNA to Diagonal 1 02/26/19 -Continue amlodipine, Coreg, isosorbide mononitrate -Continue home atorvastatin -Patient has not followed up with cardiology since 06/05/2022 History of stroke -Aspirin and Plavix on hold for now due to possible need for thoracentesis -PT/OT consultation History of PFO -Monitor Tobacco abuse -Patient utilizes smokeless tobacco -Nicotine replacement therapy as available DVT prophylaxis -Eliquis CODE STATUS -DNR CCA with no intubation as per discussion on admission Time spent in the patient's overall evaluation,decision-making process, review of diagnostic data, adjustment of management, discussion with other providers, nursing nursing and ancillary staff involved in patient's care documentation, 35 minutes Charges/Coding Visit Charges Inpatient E&M: 29714 Subs Hosp L2
--- NOTE | 2023-07-15 08:54 | PN.RENAL_ITS ---
Subjective Subjective Following for RASHAWN on CKD. The patient denies chest pain or shortness of breath. There is no nausea vomiting or diarrhea. Objective Data Objective Data Vital Signs: Vital Signs Temp Pulse Resp BP Pulse Ox O2 Del Method O2 Flow Rate 97.7 F L 69 18 133/99 H 94 Nasal Cannula 1 07/15/23 03:30 07/15/23 03:30 07/15/23 03:30 07/15/23 03:30 07/15/23 07:34 07/15/23 07:41 07/15/23 07:41 Oxygen Flow Rate (L/min) 1 Oxygen Delivery Method Nasal Cannula Weight: 80.2 kg Body Mass Index (BMI) 24.0 Intake & Output: Intake and Output for Last 24 Hours 07/13/23 07/14/23 07/15/23 23:59 23:59 23:59 Intake Total 200 / 200 350 / 425 75 / 75 Output Total 750 / 750 575 / 725 400 / 400 Balance -550 / -550 -225 / -300 -325 / -325 Lab / Micro Data 07/15/23 06:00 07/15/23 06:00 Labs: Laboratory Results - last 24 hr 07/14/23 11:35: POC Glucose 157 H 07/14/23 17:15: POC Glucose 149 H 07/14/23 22:18: POC Glucose 143 H 07/15/23 06:00: WBC 9.5, RBC 3.68 L, Hgb 10.5 L, Hct 33.3 L, MCV 90.5, MCH 28.5, MCHC 31.5 L, RDW Std Deviation 46.5 H, RDW Coeff of Ave 14.1, Plt Count 179, MPV 13.0 H, Immature Gran % (Auto) 0.300, Neut % (Auto) 82.2 H, Lymph % (Auto) 7.5 L , [place] % (Auto) 9.3, Eos % (Auto) 0.5, Baso % (Auto) 0.2, Absolute Neuts (auto) 7.8 H, Absolute Lymphs (auto) 0.71 L, Nucleated RBC % 0, Sodium 141, Potassium 4.1, Chloride 111 H, Carbon Dioxide 21.0, Anion Gap 9, BUN 68 H, Creatinine 3.71 H, Estim Creat Clear Calc 22.66, Est GFR (MDRD) Af Amer 21 L, Est GFR (MDRD) Non-Af 18 L, BUN/Creatinine Ratio 18.3, Glucose 115 H, Calcium 7.7 L 07/15/23 06:16: POC Glucose 110 H Micro: Microbiology 07/13/23 08:55 Urine Catheter - Trejo Urine Culture - Preliminary Enterococcus faecalis Coag Negative Staph Physical Exam Narrative Alert awake oriented x 3, no acute distress Normal S1, S2. There is a 3/6 systolic murmur. Lungs are clear to auscultation except for mild decreased breath sound at left lower lobe abdomen soft, nontender no edema Assessment & Plan Assessment/Plan (1) RASHAWN (acute kidney injury): (2) CKD (chronic kidney disease), stage IV: PLAN: Plan Impression/Plan: 62-year-old male with a past medical history significant for type 2 diabetes mellitus, coronary artery disease, heart failure with reduced EF 25%, stroke, severe pulmonary hypertension who presented to the emergency room on 07/10 with complaints of shortness of breath. Work-up in emergency room included CT of chest which showed large bilateral pleural effusions, BNP elevated, D-dimer elevated on heparin drip. The patient is being treated for decompensated heart failure with reduced ejection fraction. Nephrology is following for RASHAWN on CKD. Acute kidney injury on chronic kidney disease Stage 4/A2. Baseline serum creatinine has been around 2.5 to 3.0 mg/dL. I suspect patient has underlying diabetic kidney disease given persistent proteinuria in the past. Previous serologic work up including ANCA, anti GBM, C3 and C4 are normal. JALEN is negative. Suspect patient has cardiorenal RASHAWN on CKD. Serum creatinine has increased from 3.34 mg/dL on 07/10/2023 up to 4.05 mg/dL on 07/13/2023. Renal function has slowly improved with a pause on diuretic. Serum creatinine is a bit better today at 3.71 mg/dL. Despite stopping furosemide since 07/12/2023, his weight has not increased. Weight has decreased from 83.7 kg on presentation down to 80.2 kg today. There has been no weight increase in the past 24 hours. The patient does not appear to be volume overloaded on my exam. Therefore, I would recommend holding diuretic for another day. We will reassess volume status, renal function, and electrolytes again tomorrow.
[2023-07-15] MEDS: Carvedilol 6.25 MG Tablet PO ×2 (09:00→21:13)
[2023-07-15] MEDS: APIXABAN 5 MG TABLET PO ×2 (09:00→21:13)
[2023-07-15] MEDS: Menthol/Lanolin/Calamine/Znox 113 GM Tube 1 APPLIC TOPICAL ×2 (09:01→21:13)
[2023-07-15 12:23] LABS: Bedside Glucose 145 mg/dL (74-106)
[2023-07-15 17:31] LABS: Bedside Glucose 115 mg/dL (74-106)
[2023-07-15] MEDS: Atorvastatin Calcium 40 MG Tablet PO (21:13)
[2023-07-15] MEDS: Polyethylene Glycol 3350 17 GM PACKET PO (21:13)
[2023-07-15] MEDS: Mirtazapine 15 MG Tablet PO (21:13)
[2023-07-15 21:27] LABS: Bedside Glucose 106 mg/dL (74-106)
[2023-07-16 03:05] VITALS: BP 116/85; PULSE 76; RESP 18; TEMP 36.8; O2SAT 93
[2023-07-16 03:17] VITALS: BP 116/85; PULSE 76; RESP 18; TEMP 36.8; O2SAT 93
[2023-07-16 05:35] VITALS: BMI 24.0
[2023-07-16 06:21] LABS: Absolute Neutrophil Count 6.9 X10^3/uL (2.0-7.7); Basophil# 0.02 X10^3/uL; Basophil% 0.2 % (0-1); Eosinophil# 0.14 X10^3/uL; Eosinophils% 1.6 % (0-5); Hematocrit 35.3 % (40-54); Hemoglobin 10.8 g/dL (13.0-16.5); Lymphocyte % 10.3 % (19-41); Mean Corp Hgb Conc 30.6 g/dL (32-36); Mean Corpuscular Hgb 27.6 pg (27.0-32.0); Mean Corpuscular Volume 90.3 fL (80-94); Mean Platelet Vol. 13.2 fl (6.2-12.0); Monocyte# 0.77 X10^3/uL; Monocyte% 8.8 % (0-10); NRBC Flagged by Analyzer 0 % (0-5); Neutrophil # 6.87 X10^3/uL (2.7-7.7); Neutrophil % 78.6 % (47-70); Platelet Count 170 K/mm3 (150-450); RBC Distribution Width SD 46.3 fl (35.1-43.9); Red Blood Count 3.91 M/mm3 (4.6-6.2); White Blood Count 8.7 K/mm3 (4.4-11.0)
[2023-07-16] MEDS: Metoclopramide 5 MG TABLET PO ×3 (06:24→22:30)
[2023-07-16 06:42] LABS: Bedside Glucose 91 mg/dL (74-106)
[2023-07-16 07:00] LABS: Anion Gap 8 (5-15); BUN 60 mg/dL (7-18); BUN/Creat Ratio 18.8 RATIO (10-20); Calcium,Total 7.7 mg/dL (8.5-10.1); Chloride 111 mmol/L (98-107); EST Glomerular Filtration Rate 21 mL/min (>60); Est Glom Filt Rate - Afr Amer 25 mL/min (>60); Estimated Creatinine Clearance 26.27 ml/min; Glucose 94 mg/dL (74-106); Potassium 4.1 mmol/L (3.5-5.1); Sodium Level 141 mmol/L (136-145)
[2023-07-16 08:05] VITALS: O2SAT 92
[2023-07-16 08:52] VITALS: BP 121/76; PULSE 71; RESP 18; TEMP 36.9; O2SAT 96
[2023-07-16] MEDS: Carvedilol 6.25 MG Tablet PO ×2 (08:57→22:30)
[2023-07-16] MEDS: Polyethylene Glycol 3350 17 GM PACKET PO ×2 (08:57→22:29)
[2023-07-16] MEDS: Menthol/Lanolin/Calamine/Znox 113 GM Tube 1 APPLIC TOPICAL ×2 (08:57→22:31)
[2023-07-16] MEDS: APIXABAN 5 MG TABLET PO ×2 (08:57→22:29)
--- NOTE | 2023-07-16 10:32 | PCM.PN.REN ---
Subjective Subjective Sitting in chair. No overnight events. Reports breathing has improved. Denies any complaints today. Objective Data Objective Data Vital Signs: Vital Signs Temp Pulse Resp BP Pulse Ox O2 Del Method O2 Flow Rate 98.5 F 71 18 121/76 H 96 Nasal Cannula 1 07/16/23 08:52 07/16/23 08:52 07/16/23 08:52 07/16/23 08:52 07/16/23 08:52 07/16/23 08:52 07/16/23 10:11 FiO2 30 07/15/23 10:47 Oxygen Flow Rate (L/min) 1 Oxygen Delivery Method Nasal Cannula Weight: 80.4 kg Body Mass Index (BMI) 24.0 Intake & Output: Intake and Output for Last 24 Hours 07/14/23 07/15/23 07/16/23 23:59 23:59 23:59 Intake Total 350 / 425 325 / 805 480 / 480 Output Total 575 / 725 800 / 1025 550 / 550 Balance -225 / -300 -475 / -220 -70 / -70 Lab / Micro Data 07/16/23 05:43 07/16/23 05:43 Labs: Laboratory Results - last 24 hr 07/15/23 11:23: POC Glucose 145 H 07/15/23 17:00: POC Glucose 115 H 07/15/23 21:06: POC Glucose 106 07/16/23 05:43: WBC 8.7, RBC 3.91 L, Hgb 10.8 L, Hct 35.3 L, MCV 90.3, MCH 27.6, MCHC 30.6 L, RDW Std Deviation 46.3 H, RDW Coeff of Ave 14.0, Plt Count 170, MPV 13.2 H, Immature Gran % (Auto) 0.500, Neut % (Auto) 78.6 H, Lymph % (Auto) 10.3 L, [place] % (Auto) 8.8, Eos % (Auto) 1.6, Baso % (Auto) 0.2, Absolute Neuts (auto) 6.9, Absolute Lymphs (auto) 0.90, Nucleated RBC % 0, Sodium 141, Potassium 4.1, Chloride 111 H, Carbon Dioxide 22.0, Anion Gap 8, BUN 60 H, Creatinine 3.20 H, Estim Creat Clear Calc 26.27, Est GFR (MDRD) Af Amer 25 L, Est GFR (MDRD) Non-Af 21 L, BUN/Creatinine Ratio 18.8, Glucose 94, Calcium 7.7 L 07/16/23 06:18: POC Glucose 91 Micro: Microbiology 07/13/23 08:55 Urine Catheter - Trejo Urine Culture - Final Enterococcus faecalis Staphylococcus epidermidis 07/13/23 09:27 Blood Culture (Wb) - Right Hand Blood Culture - Preliminary No growth in 48 hours. 07/13/23 09:21 Blood Culture (Wb) - Left Hand Blood Culture - Preliminary No growth in 48 hours. Physical Exam Narrative Alert awake oriented x 3, no acute distress Normal S1, S2. There is a 3/6 systolic murmur. Lungs are clear to auscultation anteriorly and posteriorly abdomen soft, nontender no edema Assessment & Plan Assessment/Plan (1) RASHAWN (acute kidney injury): (2) CKD (chronic kidney disease), stage IV: PLAN: Plan Impression/Plan: 62-year-old male with a past medical history significant for type 2 diabetes mellitus, coronary artery disease, heart failure with reduced EF 25%, stroke, severe pulmonary hypertension who presented to the emergency room on 07/10 with complaints of shortness of breath. Work-up in emergency room included CT of chest which showed large bilateral pleural effusions, BNP elevated, D-dimer elevated on heparin drip. The patient is being treated for decompensated heart failure with reduced ejection fraction. Nephrology is following for RASHAWN on CKD. Acute kidney injury on chronic kidney disease Stage 4/A2. Baseline serum creatinine has been around 2.5 to 3.0 mg/dL, suspect patient has underlying diabetic kidney disease given persistent proteinuria in the past. Previous serologic work up including ANCA, anti GBM, C3 and C4 are normal. JALEN is negative. Suspect patient has cardiorenal RASHAWN on CKD. Serum creatinine 3.34 on admission, serum creatinine 3.9 on 07/12 and at that time diuretics put on hold, SCr peaked at 4.05 on 07/13. Renal function has slowly improved with a pause on diuretic. Serum creatinine improved again today at 3.20 mg/dL. Despite stopping furosemide since 07/12/2023, his weight has not increased. Weight has decreased from 83.7 kg on presentation and today 80.4 kg. Recommend standing weights only. Continue fluid restriction. The patient does not appear to be volume overloaded on exam therefore, recommend holding diuretic for another day. We will reassess volume status, renal function, and electrolytes again tomorrow.
[2023-07-16 11:16] LABS: Bedside Glucose 134 mg/dL (74-106)
--- NOTE | 2023-07-16 11:57 | CASEMGMT ---
SW met with patient. Introduced self and role at [facility]. SW explained to patient that right now therapy including speech therapy is recommending he go somewhere for short term rehab. Patient started shaking his head no. SW showed patient a list of custodial facility providers including quality and resource use data and consistent with patient?s preferred geographic region, medical needs, and insurance network were provided from the [employer]. SW explained to patient he has several options. SW told patient he is going to have a specialized diet texture and he should have supervision while eating. SW explained that is part of the reason it is felt he is not safe for home right now. Patient said, What do they know. SW will continue to follow. Juliane Holt [employer]IST[employer] TE[employer] JACKY
[2023-07-16 12:00] VITALS: BP 123/45; PULSE 74; RESP 16; TEMP 37; O2SAT 94
--- NOTE | 2023-07-16 13:41 | PN_ITS ---
Subjective Subjective Patient seen and examined. He had no complaints of shortness and comfortably in bed. He had an uneventful night. Review of systems otherwise negative. Per nursing, patient has not been motivated to work with physical therapy. He did some exercises in bed today but has been refusing to get out of bed to ambulate. He has remained hemodynamically stable and is on only 1 L of oxygen. Objective Data Objective Data Vital Signs: Vital Signs Temp Pulse Resp BP Pulse Ox O2 Del Method O2 Flow Rate 98.6 F 74 16 123/45 H 94 Nasal Cannula 1 07/16/23 12:00 07/16/23 12:00 07/16/23 12:00 07/16/23 12:00 07/16/23 12:00 07/16/23 12:00 07/16/23 12:00 FiO2 30 07/15/23 10:47 Oxygen Flow Rate (L/min) 1 Oxygen Delivery Method Nasal Cannula Weight: 177 lb 4.026 oz Body Mass Index (BMI) 24.0 Intake & Output: Intake and Output for Last 24 Hours 07/14/23 07/15/23 07/16/23 23:59 23:59 23:59 Intake Total 350 / 425 325 / 805 960 / 960 Output Total 575 / 725 800 / 1025 550 / 550 Balance -225 / -300 -475 / -220 410 / 410 Lab / Micro Data 07/16/23 05:43 07/16/23 05:43 Labs: Laboratory Results - last 24 hr 07/15/23 17:00: POC Glucose 115 H 07/15/23 21:06: POC Glucose 106 07/16/23 05:43: WBC 8.7, RBC 3.91 L, Hgb 10.8 L, Hct 35.3 L, MCV 90.3, MCH 27.6, MCHC 30.6 L, RDW Std Deviation 46.3 H, RDW Coeff of Ave 14.0, Plt Count 170, MPV 13.2 H, Immature Gran % (Auto) 0.500, Neut % (Auto) 78.6 H, Lymph % (Auto) 10.3 L, [place] % (Auto) 8.8, Eos % (Auto) 1.6, Baso % (Auto) 0.2, Absolute Neuts (auto) 6.9, Absolute Lymphs (auto) 0.90, Nucleated RBC % 0, Sodium 141, Potassium 4.1, Chloride 111 H, Carbon Dioxide 22.0, Anion Gap 8, BUN 60 H, Creatinine 3.20 H, Estim Creat Clear Calc 26.27, Est GFR (MDRD) Af Amer 25 L, Est GFR (MDRD) Non-Af 21 L, BUN/Creatinine Ratio 18.8, Glucose 94, Calcium 7.7 L 07/16/23 06:18: POC Glucose 91 07/16/23 10:58: POC Glucose 134 H Micro: Microbiology 07/13/23 08:55 Urine Catheter - Trejo Urine Culture - Final Enterococcus faecalis Staphylococcus epidermidis 07/13/23 09:27 Blood Culture (Wb) - Right Hand Blood Culture - Preliminary No growth in 48 hours. 07/13/23 09:21 Blood Culture (Wb) - Left Hand Blood Culture - Preliminary No growth in 48 hours. Physical Exam Const alert, oriented x3 and no apparent distress HEENT normocephalic, head/scalp atraumatic and moist oral mucous membranes Eyes PERRL Resp Resp Narrative: mildly diminished breath sounds bibasally, no wheezes or crackles. on 1L of oxygen. Cardio regular rate, regular rhythm, S1 normal heart sound, S2 normal heart sound and no murmurs GI normal to inspection, nondistended, normoactive bowel sounds, soft to palpation, non-tender and non-distended Extremity no calf tenderness General Extremity: no tenderness to palpation of joints or extremities Psych thought process normal and cooperative Appearance: appropriate Assessment & Plan Assessment/Plan (1) SOB (shortness of breath): (2) RASHAWN (acute kidney injury): PLAN: Plan #Acute on chronic HFrEF * Was on IV Lasix but Lasix now on hold due to worsening kidney function. Nep hrology on board. * Has known EF of 35% with severe global left ventricular systolic dysfunction and severely dilated right ventricle with severe biatrial enlargement, severe tricuspid valve insufficiency and pulmonary artery systolic pressure of 90 mmHg with moderate mitral valve insufficiency. * On fluid restriction to 1500 cc daily. * Breathing treatments of bronchodilators. Now on 1 L of oxygen. Titrate oxygen to maintain saturation above 90%. * #RASHAWN on CKD stage IV * Has been complicated by cardiorenal syndrome. Had not been following up with nephrology on outpatient basis. * Nephrology now on board. Renal ultrasound showed increased echogenicity of the bilateral kidneys compatible with medical renal disease. * Trejo catheter inserted on account of urinary retention. FEUrea was 45.3% i ndicating intrinsic kidney disease. * CR today is 3.2. Baseline Cr is 2.5-3.5 * Management as per nephrology. * #Dyspnea * Now on 1 L of oxygen. Breathing treatments with bronchodilators. Titrate oxygen to maintain saturation above 90%. * #Hiccups: Resolved. Was thought to be due to underlying uremia. #Bilateral lower extremity DVTs: * On Eliquis. * Could not have a CTA due to underlying renal disease and could not also have a VQ scan due to underlying lung issues which would render her to evacuate. * Currently on Eliquis treatment dose for bilateral lower extremity DVTs. * #Bilateral pleural effusions * Was thought to be due to heart failure. Has been diuresed adequately. * Now on 1 L of oxygen. * aspirin and plavix held as it was thought he would need thoracentesis * #History of ischemic cardiomyopathy * on carvedilol, lasix and imdur * #Pulmonary hypertension * likely due to heart failure. * diuresis on hold due to RASHAWN on CKD IV * #CAD: s/p sents. On imdur, coreg and statin. Aspirin and plavix held as it was thought patient would have thoracentesis. Will resume aspirin and plavix #History of stroke * aspirin and plavix held for possible thoracentesis * on high intensity statin * #History of PFO: stable #Nicotine dependence: uses smokeless tobacco. DVT prophylaxis; eliquis Code status; DNRCCA no intubation # Charges/Coding Visit Charges Inpatient E&M: 98407 Subs Hosp L2
[2023-07-16 16:51] LABS: Bedside Glucose 139 mg/dL (74-106)
[2023-07-16 17:40] VITALS: BP 124/76; PULSE 74; RESP 16; TEMP 36.9; O2SAT 95
--- NOTE | 2023-07-16 20:04 | CPS ---
Patient refused PAP therapy for the night. On 1L 97%.
[2023-07-16] MEDS: Atorvastatin Calcium 40 MG Tablet PO (22:30)
[2023-07-16] MEDS: Mirtazapine 15 MG Tablet PO (22:30)
[2023-07-17] VITALS (10 sets, daily range): BP systolic 124–147; BP diastolic 67–107; PULSE 67–86; RESP 14–24; TEMP 36.4–37.1; O2SAT 92–100; BMI 23.9
[2023-07-17] MEDS: Metoclopramide 5 MG TABLET PO ×3 (06:10→21:26)
[2023-07-17 06:12] LABS: Absolute Lymphocyte Count 0.95 X10^3/uL (0.83-4.51); Basophil# 0.04 X10^3/uL; Basophil% 0.4 % (0-1); Eosinophil# 0.21 X10^3/uL; Eosinophils% 2.3 % (0-5); Hematocrit 36.8 % (40-54); Hemoglobin 11.2 g/dL (13.0-16.5); Lymphocyte # 0.95 X10^3/ul (0.83-4.51); Lymphocyte % 10.6 % (19-41); Mean Corp Hgb Conc 30.4 g/dL (32-36); Mean Corpuscular Hgb 27.9 pg (27.0-32.0); Mean Corpuscular Volume 91.8 fL (80-94); Mean Platelet Vol. 13.2 fl (6.2-12.0); Monocyte# 0.73 X10^3/uL; Monocyte% 8.1 % (0-10); NRBC Flagged by Analyzer 0 % (0-5); Neutrophil # 7.01 X10^3/uL (2.7-7.7); Neutrophil % 78.2 % (47-70); Platelet Count 191 K/mm3 (150-450); RBC Distribution Width SD 47.3 fl (35.1-43.9); Red Blood Count 4.01 M/mm3 (4.6-6.2)
[2023-07-17 06:39] LABS: Anion Gap 4 (5-15); BUN 53 mg/dL (7-18); BUN/Creat Ratio 17.5 RATIO (10-20); Chloride 112 mmol/L (98-107); Creatinine, Serum 3.02 mg/dL (0.70-1.30); EST Glomerular Filtration Rate 22 mL/min (>60); Est Glom Filt Rate - Afr Amer 27 mL/min (>60); Estimated Creatinine Clearance 27.84 ml/min; Glucose 109 mg/dL (74-106); Potassium 4.3 mmol/L (3.5-5.1); Sodium Level 140 mmol/L (136-145)
[2023-07-17 06:54] LABS: Bedside Glucose 107 mg/dL (74-106)
[2023-07-17] MEDS: Polyethylene Glycol 3350 17 GM PACKET PO (08:39)
[2023-07-17] MEDS: Carvedilol 6.25 MG Tablet PO ×2 (08:39→21:26)
[2023-07-17] MEDS: APIXABAN 5 MG TABLET PO ×2 (08:39→21:27)
[2023-07-17] MEDS: Menthol/Lanolin/Calamine/Znox 113 GM Tube 1 APPLIC TOPICAL ×2 (08:40→21:27)
--- NOTE | 2023-07-17 09:31 | PCM.PN.REN ---
Documented by User: KENYA Contreras 07/17/23 09:34 Subjective Subjective Sitting in chair, no complaints. Objective Data Objective Data Vital Signs: Vital Signs Temp Pulse Resp BP Pulse Ox O2 Del Method O2 Flow Rate 98.7 F 69 16 146/92 H 97 Nasal Cannula 1 07/17/23 08:36 07/17/23 08:36 07/17/23 08:36 07/17/23 08:36 07/17/23 08:36 07/17/23 08:36 07/17/23 08:36 FiO2 30 07/15/23 10:47 Oxygen Flow Rate (L/min) 1 Oxygen Delivery Method Nasal Cannula Weight: 80 kg Body Mass Index (BMI) 23.9 Intake & Output: Intake and Output for Last 24 Hours 07/15/23 07/16/23 07/17/23 23:59 23:59 23:59 Intake Total 325 / 805 1360 / 1510 150 / 150 Output Total 800 / 1025 550 / 1100 550 / 550 Balance -475 / -220 810 / 410 -400 / -400 Lab / Micro Data 07/17/23 05:40 07/17/23 05:40 Labs: Laboratory Results - last 24 hr 07/16/23 10:58: POC Glucose 134 H 07/16/23 16:17: POC Glucose 139 H 07/17/23 05:40: WBC 9.0, RBC 4.01 L, Hgb 11.2 L, Hct 36.8 L, MCV 91.8, MCH 27.9, MCHC 30.4 L, RDW Std Deviation 47.3 H, RDW Coeff of Ave 14.0, Plt Count 191, MPV 13.2 H, Immature Gran % (Auto) 0.400, Neut % (Auto) 78.2 H, Lymph % (Auto) 10.6 L, [place] % (Auto) 8.1, Eos % (Auto) 2.3, Baso % (Auto) 0.4, Absolute Neuts (auto) 7.0, Absolute Lymphs (auto) 0.95, Nucleated RBC % 0, Sodium 140, Potassium 4.3, Chloride 112 H, Carbon Dioxide 24.0, Anion Gap 4 L, BUN 53 H, Creatinine 3.02 H, Estim Creat Clear Calc 27.84, Est GFR (MDRD) Af Amer 27 L, Est GFR (MDRD) Non-Af 22 L, BUN/Creatinine Ratio 17.5, Glucose 109 H, Calcium 8.0 L 07/17/23 06:11: POC Glucose 107 H Micro: Microbiology 07/13/23 08:55 Urine Catheter - Trejo Urine Culture - Final Enterococcus faecalis Staphylococcus epidermidis 07/13/23 09:27 Blood Culture (Wb) - Right Hand Blood Culture - Preliminary No growth in 48 hours. 07/13/23 09:21 Blood Culture (Wb) - Left Hand Blood Culture - Preliminary No growth in 48 hours. Physical Exam Narrative Alert awake oriented x 3, no acute distress Normal S1, S2. There is a 3/6 systolic murmur. Lungs are clear to auscultation anteriorly and posteriorly abdomen soft, nontender no edema Assessment & Plan Assessment/Plan (1) RASHAWN (acute kidney injury): (2) CKD (chronic kidney disease), stage IV: PLAN: Plan Impression/Plan: 62-year-old male with a past medical history significant for type 2 diabetes mellitus, coronary artery disease, heart failure with reduced EF 25%, stroke, severe pulmonary hypertension who presented to the emergency room on 07/10 with complaints of shortness of breath. Work-up in emergency room included CT of chest which showed large bilateral pleural effusions, BNP elevated, D-dimer elevated on heparin drip. The patient is being treated for decompensated heart failure with reduced ejection fraction. Nephrology is following for RASHAWN on CKD. - Acute kidney injury on chronic kidney disease Stage 4/A2. Baseline serum creatinine has been around 2.5 to 3.0 mg/dL, suspect patient has underlying diabetic kidney disease given persistent proteinuria in the past. Previous serologic work up including ANCA, anti GBM, C3 and C4 are normal. JALEN is negative. Suspect patient has cardiorenal RASHAWN on CKD. Serum creatinine 3.34 on admission, serum creatinine 3.9 on 07/12 and at that time diuretics put on hold, SCr peaked at 4.05 on 07/13. Renal function has slowly improved with a pause on diuretic. Serum creatinine improved again today at 3.02 mg/dL. Despite stopping furosemide his weight has not increased. Weight has decreased from 83.7 kg on presentation and today 80kg. Recommend standing weights only. Continue fluid restriction. The patient does not appear to be volume overloaded on exam therefore, recommend holding diuretic for another day. - discharge planning in progress possibly to ecf Documented by User: Dr. Yara Romero MD 07/17/23 15:27 Objective Data Lab / Micro Data 07/17/23 05:40 07/17/23 05:40 Assessment & Plan Assessment/Plan (1) RASHAWN (acute kidney injury): (2) CKD (chronic kidney disease), stage IV: PLAN: Plan Impression/Plan: 62-year-old male with a past medical history significant for type 2 diabetes mellitus, coronary artery disease, heart failure with reduced EF 25%, stroke, severe pulmonary hypertension who presented to the emergency room on 07/10 with complaints of shortness of breath. Work-up in emergency room included CT of chest which showed large bilateral pleural effusions, BNP elevated, D-dimer elevated on heparin drip. The patient is being treated for decompensated heart failure with reduced ejection fraction. Nephrology is following for RASHAWN on CKD. - Acute kidney injury on chronic kidney disease Stage 4/A2. Baseline serum creatinine has been around 2.5 to 3.0 mg/dL, suspect patient has underlying diabetic kidney disease given persistent proteinuria in the past. Previous serologic work up including ANCA, anti GBM, C3 and C4 are normal. JALEN is negative. Suspect patient has cardiorenal RASHAWN on CKD. Serum creatinine 3.34 on admission, serum creatinine 3.9 on 07/12 and at that time diuretics put on hold, SCr peaked at 4.05 on 07/13. Renal function has slowly improved with a pause on diuretic. Serum creatinine improved again today at 3.02 mg/dL. Despite stopping furosemide his weight has not increased. Weight has decreased from 83.7 kg on presentation and today 80kg. Recommend standing weights only. Continue fluid restriction. The patient does not appear to be volume overloaded on exam therefore, recommend holding diuretic for another day. - discharge planning in progress possibly to ecf addendum seen and examined independently. agree with plan. cr is close to baseline. volume status appears ok. resume lasix at the time of dc
--- NOTE | 2023-07-17 09:46 | CASEMGMT ---
SW was informed yesterday by speech therapist that patient choked while eating with an aide. SW asked patient if he thought anymore about going somewhere for rehab. Patient said he has not. SW explained to patient that yesterday SW was informed he choked on something. SW expressed concern that if patient were to go home alone and choke there would not be anyone there to help him. Patient considered this and said he does not know what to do. SW explained that per speech therapy he could do therapy and work on strengthening his swallowing abilities. SW explained if he went to a long-term facility he would get these exercises at least 5 days a week and there would be someone to watch over him while he eats. SW asked patient if he would consider going back to [facility] and patient said no. SW asked patient if he would go somewhere else and patient was agreeable. SW went over the list of [place] facilities and patient was agreeable to SW sending referrals to [facility], [facility], and [facility]. SW asked Ludivina barrett/elroy transportation planning engineer to send referrals to those facilities. Plan: SNF pending accepting facility and insurance approval. Juliane Holt ACTUARIAL SCIENCE PROFESSOR JACKY
--- NOTE | 2023-07-17 10:09 | CASEMGMT ---
Discharge Planning Referral sent via [facility] to [facility], [facility], and [facility]. Ludivina Brooke, Discharge Planning Asst.
[2023-07-17 11:31] LABS: Bedside Glucose 142 mg/dL (74-106)
--- NOTE | 2023-07-17 13:54 | PN_ITS ---
Subjective Subjective Patient seen and examined. He had no complaints. He felt well and had an uneventful night. Remains on 1 L of oxygen. Review of systems otherwise negative. Patient has not been very motivated to participate with physical therapy. Objective Data Objective Data Vital Signs: Vital Signs Temp Pulse Resp BP Pulse Ox O2 Del Method O2 Flow Rate 97.9 F 78 14 124/87 H 100 Nasal Cannula 1 07/17/23 11:39 07/17/23 11:39 07/17/23 11:39 07/17/23 11:39 07/17/23 11:39 07/17/23 11:39 07/17/23 11:39 FiO2 30 07/15/23 10:47 Oxygen Flow Rate (L/min) 1 Oxygen Delivery Method Nasal Cannula Weight: 176 lb 5.917 oz Body Mass Index (BMI) 23.9 Intake & Output: Intake and Output for Last 24 Hours 07/15/23 07/16/23 07/17/23 23:59 23:59 23:59 Intake Total 325 / 805 1360 / 1510 300 / 300 Output Total 800 / 1025 550 / 1100 550 / 550 Balance -475 / -220 810 / 410 -250 / -250 Lab / Micro Data 07/17/23 05:40 07/17/23 05:40 Labs: Laboratory Results - last 24 hr 07/16/23 16:17: POC Glucose 139 H 07/17/23 05:40: WBC 9.0, RBC 4.01 L, Hgb 11.2 L, Hct 36.8 L, MCV 91.8, MCH 27.9, MCHC 30.4 L, RDW Std Deviation 47.3 H, RDW Coeff of Ave 14.0, Plt Count 191, MPV 13.2 H, Immature Gran % (Auto) 0.400, Neut % (Auto) 78.2 H, Lymph % (Auto) 10.6 L, [place] % (Auto) 8.1, Eos % (Auto) 2.3, Baso % (Auto) 0.4, Absolute Neuts (auto) 7.0, Absolute Lymphs (auto) 0.95, Nucleated RBC % 0, Sodium 140, Potassium 4.3, Chloride 112 H, Carbon Dioxide 24.0, Anion Gap 4 L, BUN 53 H, Creatinine 3.02 H, Estim Creat Clear Calc 27.84, Est GFR (MDRD) Af Amer 27 L, Est GFR (MDRD) Non-Af 22 L, BUN/Creatinine Ratio 17.5, Glucose 109 H, Calcium 8.0 L 07/17/23 06:11: POC Glucose 107 H 07/17/23 10:52: POC Glucose 142 H Micro: Microbiology 07/13/23 08:55 Urine Catheter - Trejo Urine Culture - Final Enterococcus faecalis Staphylococcus epidermidis 07/13/23 09:27 Blood Culture (Wb) - Right Hand Blood Culture - Preliminary No growth in 48 hours. 07/13/23 09:21 Blood Culture (Wb) - Left Hand Blood Culture - Preliminary No growth in 48 hours. Physical Exam Const alert, oriented x3, no apparent distress and average body habitus; Negative for healthy appearing or well nourished General Appearance: cooperative HEENT normocephalic, head/scalp atraumatic, hearing grossly normal bilaterally and moist oral mucous membranes Eyes PERRL, EOMs intact bilaterally and conjunctivae normal Eyes Narrative: No scleral icterus Neck no lymphadenopathy, supple, No no JVD and no carotid bruits Resp no retractions, no use of accessory muscles and No clear to auscultation bilaterally Resp Narrative: mildly diminished breath sounds bibasally, no wheezes or crackles. on 1L of oxyg en. Auscultation: crackles; Negative for rhonchi or wheezes Cardio regular rate, regular rhythm, S1 normal heart sound, S2 normal heart sound, no murmurs, no rub, no gallops, no clicks and no JVD GI normal to inspection, nondistended, normoactive bowel sounds, soft to palpation, non-tender and non-distended GI Narrative: Mild distention with normal bowel sounds Extremity no clubbing, cyanosis or edema and no calf tenderness General Extremity: no tenderness to palpation of joints or extremities Neuro oriented x3, CN's II-XII intact bilaterally, moves all extremities and no focal motor deficits Speech: Negative for speech normal Motor Exam: strength 5/5 throughout and general weakness Psych thought process normal and cooperative Appearance: appropriate Assessment & Plan Assessment/Plan (1) SOB (shortness of breath): (2) RASHAWN (acute kidney injury): PLAN: Plan #Acute on chronic HFrEF * Was on IV Lasix but Lasix now on hold due to worsening kidney function. Nephrology on board. * Has known EF of 35% with severe global left ventricular systolic dysfunction and severely dilated right ventricle with severe biatrial enlargement, severe tricuspid valve insufficiency and pulmonary artery systolic pressure of 90 mmHg with moderate mitral valve insufficiency. * On fluid restriction to 1500 cc daily. * Breathing treatments of bronchodilators. Remains on 1 L of oxygen. Titrate oxygen to maintain saturation above 90%. * #RASHAWN on CKD stage IV * Has been complicated by cardiorenal syndrome. Had not been following up with nephrology on outpatient basis. * Nephrology now on board. Renal ultrasound showed increased echogenicity of the bilateral kidneys compatible with medical renal disease. * Trejo catheter inserted on account of urinary retention. FEUrea was 45.3% indicating intrinsic kidney disease. * Cr today is 3.02. Baseline Cr is 2.5-3.5 * Management as per nephrology. * #Dyspnea * Remains on 1 L of oxygen. Breathing treatments with bronchodilators. Titrate oxygen to maintain saturation above 90%. * #Hiccups: Resolved. Was thought to be due to underlying uremia. #Bilateral lower extremity DVTs: * On Eliquis. * Could not have a CTA due to underlying renal disease and could not also have a VQ scan due to underlying lung issues which would render her to evacuate. * Currently on Eliquis treatment dose for bilateral lower extremity DVTs. * * #Bilateral pleural effusions * Was thought to be due to heart failure. Has been diuresed adequately. * Now on 1 L of oxygen. * aspirin and plavix held as it was thought he would need thoracentesis * #History of ischemic cardiomyopathy * on carvedilol, lasix and imdur * #Pulmonary hypertension * likely due to heart failure. * diuresis on hold due to RASHAWN on CKD IV * #CAD: s/p sents. On imdur, coreg and statin.on aspirin and plavix #History of stroke * resume asprin and plavix. * on high intensity statin * #History of PFO: stable #Nicotine dependence: uses smokeless tobacco. DVT prophylaxis; eliquis Code status; DNRCCA no intubation # CODE STATUS: * Awaiting placement. Patient has been very unmotivated about physical therapy. * Patient counseled about the need for physical therapy so that we can determine how much she can do for himself. Charges/Coding Visit Charges Inpatient E&M: 12499 Subs Hosp L2
--- NOTE | 2023-07-17 15:49 | CASEMGMT ---
[facility] said they are now out of network, [facility] is [facility], and [facility] has said no due to patient's low participation. SW sent today's PT,OT, and ST notes to [facility] and asked that they re-consider as patient participated more today. [facility] ([facility]) has not responded yet. Ludivina barrett/elroy strategic planning director is checking with [facility]. Juliane Holt CREDIT ADMINISTRATION OFFICER JACKY
[2023-07-17 16:09] LABS: Bedside Glucose 183 mg/dL (74-106)
[2023-07-17] MEDS: Atorvastatin Calcium 40 MG Tablet PO (21:26)
[2023-07-17] MEDS: Mirtazapine 15 MG Tablet PO (21:26)
[2023-07-18] VITALS (11 sets, daily range): BP systolic 142–157; BP diastolic 94–115; PULSE 72–83; RESP 18–24; TEMP 36.2–37.1; O2SAT 94–100; BMI 23.8
[2023-07-18 00:48] LABS: Bedside Glucose 129 mg/dL (74-106)
[2023-07-18 05:01] LABS: Absolute Lymphocyte Count 0.99 X10^3/uL (0.83-4.51); Absolute Neutrophil Count 6.9 X10^3/uL (2.0-7.7); Basophil# 0.04 X10^3/uL; Basophil% 0.4 % (0-1); Eosinophil# 0.26 X10^3/uL; Eosinophils% 2.9 % (0-5); Hematocrit 36.5 % (40-54); Lymphocyte # 0.99 X10^3/ul (0.83-4.51); Mean Corp Hgb Conc 30.1 g/dL (32-36); Mean Corpuscular Hgb 27.6 pg (27.0-32.0); Mean Corpuscular Volume 91.5 fL (80-94); Mean Platelet Vol. 13.4 fl (6.2-12.0); Monocyte# 0.76 X10^3/uL; Monocyte% 8.5 % (0-10); NRBC Flagged by Analyzer 0 % (0-5); Neutrophil # 6.88 X10^3/uL (2.7-7.7); Neutrophil % 76.6 % (47-70); Platelet Count 195 K/mm3 (150-450); RBC Distribution Width CV 14.1 % (11.6-14.6); RBC Distribution Width SD 47.6 fl (35.1-43.9); Red Blood Count 3.99 M/mm3 (4.6-6.2)
[2023-07-18 05:46] LABS: Anion Gap 5 (5-15); BUN 53 mg/dL (7-18); BUN/Creat Ratio 18.8 RATIO (10-20); Calcium,Total 7.9 mg/dL (8.5-10.1); Chloride 111 mmol/L (98-107); Creatinine, Serum 2.82 mg/dL (0.70-1.30); EST Glomerular Filtration Rate 24 mL/min (>60); Est Glom Filt Rate - Afr Amer 29 mL/min (>60); Estimated Creatinine Clearance 29.81 ml/min; Glucose 168 mg/dL (74-106); Sodium Level 141 mmol/L (136-145)
--- NOTE | 2023-07-18 06:28 | PCM.HOSP.N ---
Hospitalist Note Fall this AM while attempting to get out of bed to the bathroom with abrasion with no LOC, did not hit head. Noting some discomfort to the RUE. Will obtain plain film RUE.
[2023-07-18 06:54] LABS: Bedside Glucose 140 mg/dL (74-106)
[2023-07-18] MEDS: APIXABAN 5 MG TABLET PO ×2 (08:36→21:07)
[2023-07-18] MEDS: Menthol/Lanolin/Calamine/Znox 113 GM Tube 1 APPLIC TOPICAL ×2 (08:37→21:07)
[2023-07-18] MEDS: Carvedilol 6.25 MG Tablet PO ×2 (08:37→21:07)
--- NOTE | 2023-07-18 09:50 | RAD_ITS ---
STUDY: X-RAY - RIGHT ELBOW REASON FOR EXAM: Male, 62 years old. Fall, R elbow pain TECHNIQUE: 3 view(s) of the elbow. COMPARISON: None. FINDINGS: Normal visualized humerus, radius and ulna. Normal radiocapitellar and ulnotrochlear articulations. The soft tissue structures are unremarkable. RAD/Elbow min 3 Views IMPRESSION: Normal x-ray examination of the elbow. Electronically Signed: Randy Murrell MD at 10:27 EDT ,
[2023-07-18] MEDS: Insulin Lispro 100 UNIT/ML INSULN.PEN SC (11:05)
--- NOTE | 2023-07-18 11:20 | CASEMGMT ---
[facility] still is saying no to patient. [facility] is considering patient and [facility] has not responded yet. [facility] did ask if patient was okay with not smoking. SW spoke with patient. SW let patient know [facility] wants to know if he is okay with not smoking. Patient said he is fine with not smoking and patient was also agreeable to sharing a room. SW told patient once SW hears back from [facility] and [facility] SW will talk with him. Patient was agreeable to contacting his brother to update him. Juliane Holt FISH WARDEN JACKY
[2023-07-18 11:26] LABS: Bedside Glucose 165 mg/dL (74-106)
--- NOTE | 2023-07-18 11:33 | PN.RENAL_ITS ---
Subjective Subjective Sitting up in bed, denies any complaints. Denies any dyspnea. Objective Data Objective Data Vital Signs: Vital Signs Temp Pulse Resp BP Pulse Ox O2 Del Method O2 Flow Rate 97.1 F L 72 18 149/115 H 94 Nasal Cannula 2 07/18/23 08:34 07/18/23 08:34 07/18/23 08:34 07/18/23 08:34 07/18/23 08:34 07/18/23 08:34 07/18/23 08:34 FiO2 30 07/15/23 10:47 Oxygen Flow Rate (L/min) 2 Oxygen Delivery Method Nasal Cannula Weight: 79.9 kg Body Mass Index (BMI) 23.8 Intake & Output: Intake and Output for Last 24 Hours 07/16/23 07/17/23 07/18/23 23:59 23:59 23:59 Intake Total 1360 / 1510 725 / 845 120 / 120 Output Total 550 / 1100 550 / 550 Balance 810 / 410 175 / 295 120 / 120 Lab / Micro Data 07/18/23 04:25 07/18/23 04:25 Labs: Laboratory Results - last 24 hr 07/17/23 15:52: POC Glucose 183 H 07/17/23 21:59: POC Glucose 129 H 07/18/23 04:25: WBC 9.0, RBC 3.99 L, Hgb 11.0 L, Hct 36.5 L, MCV 91.5, MCH 27.6, MCHC 30.1 L, RDW Std Deviation 47.6 H, RDW Coeff of Ave 14.1, Plt Count 195, MPV 13.4 H, Immature Gran % (Auto) 0.600, Neut % (Auto) 76.6 H, Lymph % (Auto) 11.0 L, [place] % (Auto) 8.5, Eos % (Auto) 2.9, Baso % (Auto) 0.4, Absolute Neuts (auto) 6.9, Absolute Lymphs (auto) 0.99, Nucleated RBC % 0, Sodium 141, Potassium 4.0, Chloride 111 H, Carbon Dioxide 25.0, Anion Gap 5, BUN 53 H, Creatinine 2.82 H, Estim Creat Clear Calc 29.81, Est GFR (MDRD) Af Amer 29 L, Est GFR (MDRD) Non-Af 24 L, BUN/Creatinine Ratio 18.8, Glucose 168 H, Calcium 7.9 L 07/18/23 06:17: POC Glucose 140 H 07/18/23 11:04: POC Glucose 165 H Micro: Microbiology 07/13/23 09:27 Blood Culture (Wb) - Right Hand Blood Culture - Final No growth in 5 days. 07/13/23 09:21 Blood Culture (Wb) - Left Hand Blood Culture - Final No growth in 5 days. 07/13/23 08:55 Urine Catheter - Trejo Urine Culture - Final Enterococcus faecalis Staphylococcus epidermidis Radiography Diagnostic Testing: Radiology Impression Elbow X-Ray 07/18/23 09:50 IMPRESSION: Normal x-ray examination of the elbow. Electronically Signed: Randy Murrell MD at 10:27 EDT , Physical Exam Narrative Alert awake oriented x 3, no acute distress Normal S1, S2. There is a 3/6 systolic murmur. Lungs are clear to auscultation anteriorly, no rales or rhonchi abdomen soft, nontender no edema Assessment & Plan Assessment/Plan (1) RASHAWN (acute kidney injury): (2) CKD (chronic kidney disease), stage IV: PLAN: Plan Impression/Plan: 62-year-old male with a past medical history significant for type 2 diabetes mellitus, coronary artery disease, heart failure with reduced EF 25%, stroke, severe pulmonary hypertension who presented to the emergency room on 07/10 with complaints of shortness of breath. Work-up in emergency room included CT of chest which showed large bilateral pleural effusions, BNP elevated, D-dimer elevated on heparin drip. The patient is being treated for decompensated heart failure with reduced ejection fraction. Nephrology is following for RASHAWN on CKD. - Acute kidney injury on chronic kidney disease Stage 4/A2. Baseline serum creatinine has been around 2.5 to 3.0 mg/dL, suspect patient has underlying diabetic kidney disease given persistent proteinuria in the past. Previous serologic work up including ANCA, anti GBM, C3 and C4 are normal. JALEN is negative. Suspect patient has cardiorenal RASHAWN on CKD. Serum creatinine 3.34 on admission, SCr 3.9 on 07/12 and at that time diuretics put on hold, SCr peaked at 4.05 on 07/13. Renal function has slowly improved with a pause on diuretic. SCr improved again today at 2.82 mg/dL. Despite stopping furosemide his weight has not increased. Weight has decreased from 83.7 kg on presentation and today 80kg. Recommend standing weights only. Continue fluid restriction. The patient does not appear to be volume overloaded on exam therefore, recommend holding diuretic for another day. At time of hospital discharge can resume lasix 40mg po daily. - discharge planning in progress possibly to [facility]
--- NOTE | 2023-07-18 13:08 | PN_ITS ---
Subjective Subjective Patient seen and examined. He complained of pain in his right elbow after a mechanical fall today. He had no other complaints. Review of systems is otherwise negative. Objective Data Objective Data Vital Signs: Vital Signs Temp Pulse Resp BP Pulse Ox O2 Del Method O2 Flow Rate 97.1 F L 72 18 149/115 H 94 Nasal Cannula 2 07/18/23 08:34 07/18/23 08:34 07/18/23 08:34 07/18/23 08:34 07/18/23 08:34 07/18/23 08:34 07/18/23 08:34 FiO2 30 07/15/23 10:47 Oxygen Flow Rate (L/min) 2 Oxygen Delivery Method Nasal Cannula Weight: 176 lb 2.389 oz Body Mass Index (BMI) 23.8 Intake & Output: Intake and Output for Last 24 Hours 07/16/23 07/17/23 07/18/23 23:59 23:59 23:59 Intake Total 1360 / 1510 725 / 845 120 / 120 Output Total 550 / 1100 550 / 550 Balance 810 / 410 175 / 295 120 / 120 Lab / Micro Data 07/18/23 04:25 07/18/23 04:25 Labs: Laboratory Results - last 24 hr 07/17/23 15:52: POC Glucose 183 H 07/17/23 21:59: POC Glucose 129 H 07/18/23 04:25: WBC 9.0, RBC 3.99 L, Hgb 11.0 L, Hct 36.5 L, MCV 91.5, MCH 27.6, MCHC 30.1 L, RDW Std Deviation 47.6 H, RDW Coeff of Ave 14.1, Plt Count 195, MPV 13.4 H, Immature Gran % (Auto) 0.600, Neut % (Auto) 76.6 H, Lymph % (Auto) 11.0 L, [place] % (Auto) 8.5, Eos % (Auto) 2.9, Baso % (Auto) 0.4, Absolute Neuts (auto) 6.9, Absolute Lymphs (auto) 0.99, Nucleated RBC % 0, Sodium 141, Potassium 4.0, Chloride 111 H, Carbon Dioxide 25.0, Anion Gap 5, BUN 53 H, Creatinine 2.82 H, Estim Creat Clear Calc 29.81, Est GFR (MDRD) Af Amer 29 L, Est GFR (MDRD) Non-Af 24 L, BUN/Creatinine Ratio 18.8, Glucose 168 H, Calcium 7.9 L 07/18/23 06:17: POC Glucose 140 H 07/18/23 11:04: POC Glucose 165 H Micro: Microbiology 07/13/23 09:27 Blood Culture (Wb) - Right Hand Blood Culture - Final No growth in 5 days. 07/13/23 09:21 Blood Culture (Wb) - Left Hand Blood Culture - Final No growth in 5 days. 07/13/23 08:55 Urine Catheter - Trejo Urine Culture - Final Enterococcus faecalis Staphylococcus epidermidis Radiography Diagnostic Testing: Radiology Impression Elbow X-Ray 07/18/23 09:50 IMPRESSION: Normal x-ray examination of the elbow. Electronically Signed: Randy Murrell MD at 10:27 EDT , Physical Exam Const alert, oriented x3, no apparent distress and average body habitus; Negative for healthy appearing or well nourished General Appearance: cooperative HEENT normocephalic, head/scalp atraumatic, hearing grossly normal bilaterally and moist oral mucous membranes Eyes PERRL, EOMs intact bilaterally and conjunctivae normal Eyes Narrative: No scleral icterus Neck no lymphadenopathy, supple, No no JVD and no carotid bruits Neck Narrative: Positive JVD bilaterally Resp no retractions, no use of accessory muscles and No clear to auscultation bilaterally Resp Narrative: mildly diminished breath sounds bibasally, no wheezes or crackles. on 2L of oxygen. Cardio regular rate, regular rhythm, S1 normal heart sound, S2 normal heart sound, no murmurs, no rub, no gallops, no clicks and no JVD GI normal to inspection, nondistended, normoactive bowel sounds, soft to palpation, non-tender and non-distended GI Narrative: Mild distention with normal bowel sounds Extremity no clubbing, cyanosis or edema and no calf tenderness Extremity Narrative: Decreased lean muscle mass;has pain with movement of RUE at elbow joint, as a result of mechanicall this morning. No visible swelling. General Extremity: no tenderness to palpation of joints or extremities Neuro oriented x3, CN's II-XII intact bilaterally and no focal motor deficits Neuro Narrative: Generalized weakness noted and patient does have difficulty with bed mobility at my evaluation, is mildly garbled from previous stroke Speech: Negative for speech normal Motor Exam: general weakness Psych thought process normal and cooperative Appearance: appropriate Assessment & Plan Assessment/Plan (1) SOB (shortness of breath): (2) RASHAWN (acute kidney injury): PLAN: Plan #Acute on chronic HFrEF * Was on IV Lasix but Lasix now on hold due to worsening kidney function. Nephrology on board. * Has known EF of 35% with severe global left ventricular systolic dysfunction and severely dilated right ventricle with severe biatrial enlargement, severe tricuspid valve insufficiency and pulmonary artery systolic pressure of 90 mmHg with moderate mitral valve insufficiency. * On fluid restriction to 1500 cc daily. * Breathing treatments of bronchodilators. Remains on 1 L of oxygen. Titrate oxygen to maintain saturation above 90%. * #RASHAWN on CKD stage IV * Has been complicated by cardiorenal syndrome. Had not been following up with nephrology on outpatient basis. * Nephrology now on board. Renal ultrasound showed increased echogenicity of the bilateral kidneys compatible with medical renal disease. * Trejo catheter inserted on account of urinary retention. FEUrea was 45.3% indicating intrinsic kidney disease. * Cr today is down o 2.82. Baseline Cr is 2.5-3.5 * Management as per nephrology. * #Left elbow pain due to mechanical fall * Says he fell out of bed today and landed on his left elbow. He is having pain extending the elbow. He did not hit his head. X-ray of the left elbow was normal. * PT OT on board. P.o. Tylenol and p.o. oxycodone as needed for pain. * fall precautions * #Dyspnea * Remains on 1 L of oxygen. Breathing treatments with bronchodilators. Titrate oxygen to maintain saturation above 90%. * #Hiccups: Resolved. #Bilateral lower extremity DVTs: * On Eliquis. * Could not have a CTA due to underlying renal disease and could not also have a VQ scan due to underlying lung issues which would render her to evacuate. * Currently on Eliquis treatment dose for bilateral lower extremity DVTs. * * #Bilateral pleural effusions * Was thought to be due to heart failure. Has been diuresed adequately. * Now on 1 L of oxygen. * aspirin and plavix held as it was thought he would need thoracentesis. Will resume as he is now on 1-2L of oxygen * #History of ischemic cardiomyopathy * on carvedilol, lasix and imdur * #Pulmonary hypertension * likely due to heart failure. * diuresis on hold due to RASHAWN on CKD IV * #CAD: s/p sents. On imdur, coreg and statin.on aspirin and plavix #History of stroke * resume asprin and plavix. * on high intensity statin * #History of PFO: stable #Nicotine dependence: uses smokeless tobacco. DVT prophylaxis; eliquis Code status; DNRCCA no intubation # CODE STATUS: * Awaiting placement. Charges/Coding Visit Charges Inpatient E&M: 48747 Subs Hosp L2
[2023-07-18] MEDS: Metoclopramide 5 MG TABLET PO ×2 (14:32→21:08)
[2023-07-18] MEDS: Acetaminophen 325 MG Tablet 650 MG PO (14:40)
--- NOTE | 2023-07-18 15:07 | CASEMGMT ---
KAREN called patient's brother Kyle and updated him on d/c plan likely to be d/c to [facility]. KAREN let Kyle know KAREN did try [facility] as KAREN saw he lived in [place], but they were not able to take patient. Kyle thanked KAREN for the update. Juliane Holt TELETYPE MECHANIC JACKY
--- NOTE | 2023-07-18 15:34 | CASEMGMT ---
Both [facility] and [facility] have declined patient. SW will talk with patient about other options. Juliane Holt MIXING PLACE SUPERVISOR JACKY
[2023-07-18 18:00] LABS: Bedside Glucose 126 mg/dL (74-106)
[2023-07-18] MEDS: Polyethylene Glycol 3350 17 GM PACKET PO (21:08)
[2023-07-18] MEDS: Mirtazapine 15 MG Tablet PO (21:08)
[2023-07-18] MEDS: Atorvastatin Calcium 40 MG Tablet PO (21:08)
[2023-07-18 22:25] LABS: Bedside Glucose 133 mg/dL (74-106)
[2023-07-19] VITALS (7 sets, daily range): BP systolic 114–138; BP diastolic 81–107; PULSE 72–81; RESP 16–24; TEMP 36.1–36.8; O2SAT 91–99; BMI 23.7
[2023-07-19] MEDS: Acetaminophen 325 MG Tablet 650 MG PO ×2 (03:53→21:09)
[2023-07-19 06:35] LABS: Anion Gap 6 (5-15); BUN 46 mg/dL (7-18); BUN/Creat Ratio 17.7 RATIO (10-20); Calcium,Total 7.8 mg/dL (8.5-10.1); Chloride 114 mmol/L (98-107); EST Glomerular Filtration Rate 27 mL/min (>60); Est Glom Filt Rate - Afr Amer 32 mL/min (>60); Estimated Creatinine Clearance 32.33 ml/min; Glucose 122 mg/dL (74-106); Potassium 4.5 mmol/L (3.5-5.1); Sodium Level 143 mmol/L (136-145)
[2023-07-19] MEDS: Metoclopramide 5 MG TABLET PO ×3 (06:39→21:01)
[2023-07-19 07:00] LABS: Bedside Glucose 124 mg/dL (74-106)
--- NOTE | 2023-07-19 08:44 | CASEMGMT ---
SW spoke with patient and let him know [facility], [facility], and [facility] have all declined patient. KAREN discussed [facility] as it is the only facility in [place] that takes his insurance. KAREN then told patient about [facility] and [facility], but they are in [place]. Patient would like to try these facilities first. KAREN notified Ludivina d/elroy assistant counsel. Plan: SNF pending accepting facility and insurance approval. Juliane Holt PRINCIPLE INDUSTRIAL HYGIENIST JACKY
[2023-07-19] MEDS: Menthol/Lanolin/Calamine/Znox 113 GM Tube 1 APPLIC TOPICAL ×2 (09:39→21:00)
[2023-07-19] MEDS: APIXABAN 5 MG TABLET PO ×2 (09:39→21:02)
[2023-07-19] MEDS: Carvedilol 6.25 MG Tablet PO ×2 (09:43→21:01)
--- NOTE | 2023-07-19 10:14 | CASEMGMT ---
[facility] accepted patient and they will start the pre-cert. KAREN notified patient and he was in agreement. KAREN will also notify patient's brother Kyle. Plan: [facility] pending insurance approval. Juliane RICO
[2023-07-19] MEDS: Insulin Lispro 100 UNIT/ML INSULN.PEN SC (11:07)
[2023-07-19 11:36] LABS: Bedside Glucose 192 mg/dL (74-106)
--- NOTE | 2023-07-19 14:22 | PN.RENAL_ITS ---
Subjective Subjective Resting in bed. No complaints. Objective Data Objective Data Vital Signs: Vital Signs Temp Pulse Resp BP Pulse Ox O2 Del Method O2 Flow Rate 97.0 F L 72 18 114/81 H 99 Room Air 1 07/19/23 13:10 07/19/23 13:10 07/19/23 13:10 07/19/23 13:10 07/19/23 13:10 07/19/23 13:10 07/19/23 03:48 FiO2 30 07/15/23 10:47 Oxygen Flow Rate (L/min) 1 Oxygen Delivery Method Room Air Weight: 79.3 kg Body Mass Index (BMI) 23.7 Intake & Output: Intake and Output for Last 24 Hours 07/17/23 07/18/23 07/19/23 23:59 23:59 23:59 Intake Total 725 / 845 835 / 1055 220 / 220 Output Total 550 / 550 350 / 350 Balance 175 / 295 835 / 1055 -130 / -130 Lab / Micro Data 07/18/23 04:25 07/19/23 04:58 Labs: Laboratory Results - last 24 hr 07/18/23 17:41: POC Glucose 126 H 07/18/23 21:14: POC Glucose 133 H 07/19/23 04:58: Sodium 143, Potassium 4.5, Chloride 114 H, Carbon Dioxide 23.0, Anion Gap 6, BUN 46 H, Creatinine 2.60 H, Estim Creat Clear Calc 32.33, Est GFR (MDRD) Af Amer 32 L, Est GFR (MDRD) Non-Af 27 L, BUN/Creatinine Ratio 17.7, Glucose 122 H, Calcium 7.8 L 07/19/23 06:35: POC Glucose 124 H 07/19/23 11:05: POC Glucose 192 H Micro: Microbiology 07/13/23 09:27 Blood Culture (Wb) - Right Hand Blood Culture - Final No growth in 5 days. 07/13/23 09:21 Blood Culture (Wb) - Left Hand Blood Culture - Final No growth in 5 days. 07/13/23 08:55 Urine Catheter - Trejo Urine Culture - Final Enterococcus faecalis Staphylococcus epidermidis Physical Exam Narrative Alert awake oriented x 3, no acute distress Normal S1, S2. There is a 3/6 systolic murmur. Lungs are clear to auscultation anteriorly, no rales or rhonchi abdomen soft, nontender no edema Assessment & Plan Assessment/Plan (1) RASHAWN (acute kidney injury): (2) CKD (chronic kidney disease), stage IV: PLAN: Plan Impression/Plan: 62-year-old male with a past medical history significant for type 2 diabetes anjum litus, coronary artery disease, heart failure with reduced EF 25%, stroke, severe pulmonary hypertension who presented to the emergency room on 07/10 with complaints of shortness of breath. Work-up in emergency room included CT of chest which showed large bilateral pleural effusions, BNP elevated, D-dimer elevated on heparin drip. The patient is being treated for decompensated heart failure with reduced ejection fraction. Nephrology is following for RASHAWN on CKD. - Acute kidney injury on chronic kidney disease Stage 4/A2; RASHAWN secondary to cardiorenal syndrome physiology Baseline serum creatinine has been around 2.5 to 3.0 mg/dL, suspect patient has underlying diabetic kidney disease given persistent proteinuria in the past. Previous serologic work up including ANCA, anti GBM, C3 and C4 are normal. JALEN is negative. Serum creatinine 3.34 on admission, SCr 3.9 on 07/12 and at that time diuretics put on hold, SCr peaked at 4.05 on 07/13. Renal function has slowly improved with a pause on diuretic. SCr improved again today at 2.6 mg/dL. Despite stopping furosemide his weight has not increased. Weight has decreased from 83.7 kg on presentation and today 79.3kg. Recommend standing weights only. Continue fluid restriction. The patient does not appear to be volume overloaded on exam therefore, recommend holding diuretic for another day. At time of hospital discharge can resume lasix 40mg po daily. - discharge planning in progress possibly to [facility]
--- NOTE | 2023-07-19 14:44 | PN_ITS ---
Subjective Subjective Patient seen and examined. He was lying in bed comfortably. He still complained of pain in the right upper extremity after mechanical fall. He had no other complaints. I was informed subsequently the patient barely move the right upper extremity especially during therapy. Objective Data Objective Data Vital Signs: Vital Signs Temp Pulse Resp BP Pulse Ox O2 Del Method O2 Flow Rate 97.0 F L 72 18 114/81 H 99 Room Air 1 07/19/23 13:10 07/19/23 13:10 07/19/23 13:10 07/19/23 13:10 07/19/23 13:10 07/19/23 13:10 07/19/23 03:48 FiO2 30 07/15/23 10:47 Oxygen Flow Rate (L/min) 1 Oxygen Delivery Method Room Air Weight: 174 lb 13.225 oz Body Mass Index (BMI) 23.7 Intake & Output: Intake and Output for Last 24 Hours 07/17/23 07/18/23 07/19/23 23:59 23:59 23:59 Intake Total 725 / 845 835 / 1055 220 / 220 Output Total 550 / 550 350 / 350 Balance 175 / 295 835 / 1055 -130 / -130 Lab / Micro Data 07/18/23 04:25 07/19/23 04:58 Labs: Laboratory Results - last 24 hr 07/18/23 17:41: POC Glucose 126 H 07/18/23 21:14: POC Glucose 133 H 07/19/23 04:58: Sodium 143, Potassium 4.5, Chloride 114 H, Carbon Dioxide 23.0, Anion Gap 6, BUN 46 H, Creatinine 2.60 H, Estim Creat Clear Calc 32.33, Est GFR (MDRD) Af Amer 32 L, Est GFR (MDRD) Non-Af 27 L, BUN/Creatinine Ratio 17.7, Glucose 122 H, Calcium 7.8 L 07/19/23 06:35: POC Glucose 124 H 07/19/23 11:05: POC Glucose 192 H Micro: Microbiology 07/13/23 09:27 Blood Culture (Wb) - Right Hand Blood Culture - Final No growth in 5 days. 07/13/23 09:21 Blood Culture (Wb) - Left Hand Blood Culture - Final No growth in 5 days. 07/13/23 08:55 Urine Catheter - Trejo Urine Culture - Final Enterococcus faecalis Staphylococcus epidermidis Physical Exam Const alert, oriented x3 and no apparent distress; Negative for healthy appearing or well nourished General Appearance: cooperative HEENT normocephalic, head/scalp atraumatic, hearing grossly normal bilaterally and moist oral mucous membranes Eyes PERRL, EOMs intact bilaterally and conjunctivae normal Eyes Narrative: No scleral icterus Neck no lymphadenopathy, supple, No no JVD and no carotid bruits Neck Narrative: Positive JVD bilaterally Resp no retractions, no use of accessory muscles and No clear to auscultation bilaterally Resp Narrative: mildly diminished breath sounds bibasally, no wheezes or crackles. on 2L of oxygen. Auscultation: crackles; Negative for rhonchi or wheezes Cardio regular rate, regular rhythm, S1 normal heart sound, S2 normal heart sound, no murmurs, no rub, no gallops, no clicks and no JVD GI normal to inspection, nondistended, normoactive bowel sounds, soft to palpation, non-tender and non-distended GI Narrative: Mild distention with normal bowel sounds Extremity no clubbing, cyanosis or edema and no calf tenderness Extremity Narrative: tenderness of RUE at shoulder and elbow, limited range of movement, due to mechanical fall General Extremity: no tenderness to palpation of joints or extremities Neuro oriented x3, CN's II-XII intact bilaterally and no focal motor deficits Neuro Narrative: Generalized weakness noted. Limited movement of RUE at shoulder due to mechanical fall Speech: Negative for speech normal Motor Exam: general weakness Psych thought process normal and cooperative Psych Narrative: Appearance: appropriate Assessment & Plan Assessment/Plan (1) SOB (shortness of breath): (2) RASHAWN (acute kidney injury): PLAN: Plan #Acute on chronic HFrEF * lasix on hold * Has known EF of 35% with severe global left ventricular systolic dysfunction and severely dilated right ventricle with severe biatrial enlargement, severe tricuspid valve insufficiency and pulmonary artery systolic pressure of 90 mmHg with moderate mitral valve insufficiency. * On fluid restriction to 1500 cc daily. * Breathing treatments of bronchodilators. Remains on 1 L of oxygen. Titrate oxygen to maintain saturation above 90%. * largely resolved * #RASHAWN on CKD stage IV * Has been complicated by cardiorenal syndrome. Had not been following up with nephrology on outpatient basis. * Nephrology now on board. Renal ultrasound showed increased echogenicity of the bilateral kidneys compatible with medical renal disease. * Trejo catheter inserted on account of urinary retention. FEUrea was 45.3% indicating intrinsic kidney disease. * Cr today is down to 2.6. Baseline Cr is 2.5-3.5 * Management as per nephrology. * #RIght elbow pain due to mechanical fall * he fell out of bed yesterday and landed on his right arm, with resultant right elbow pain and right shoulder pain * xray of the right elbow is normal * will get xray of the right shoulder * PT/OT on board * fall precautions * on PO tylenol, PO oxycodone and IV morphine prn for pain * #Dyspnea * Remains on 1 L of oxygen. Breathing treatments with bronchodilators. Titrate oxygen to maintain saturation above 90%. * largely improved * #Hiccups: Resolved. #Bilateral lower extremity DVTs: * On Eliquis. * Could not have a CTA due to underlying renal disease and could not also have a VQ scan due to underlying lung issues which would render her to evacuate. * Currently on Eliquis treatment dose for bilateral lower extremity DVTs. * * #Bilateral pleural effusions * Was thought to be due to heart failure. Has been diuresed adequately. * Now on 1 L of oxygen. * aspirin and plavix held as it was thought he would need thoracentesis. Will resume as he is now on 1-2L of oxygen * #History of ischemic cardiomyopathy * on carvedilol, lasix and imdur * #Pulmonary hypertension * likely due to heart failure. * diuresis on hold due to RASHAWN on CKD IV * #CAD: s/p sents. On imdur, coreg and statin.on aspirin and plavix #History of stroke * resume asprin and plavix. * on high intensity statin * #History of PFO: stable #Nicotine dependence: uses smokeless tobacco. DVT prophylaxis; eliquis Code status; DNRCCA no intubation # CODE STATUS: * Awaiting placement. Charges/Coding Visit Charges Inpatient E&M: 96883 Subs Hosp L2
--- NOTE | 2023-07-19 15:50 | RAD_ITS ---
STUDY: X-RAY - RIGHT SHOULDER REASON FOR EXAM: Male, 62 years old. right shoulder pain TECHNIQUE: 2 view(s) of the shoulder. COMPARISON: None. FINDINGS: There is spiral moderately displaced nonangulated fracture through the proximal shaft of the right humerus. Normal glenohumeral articulation. Normal acromioclavicular joint. Normal acromion. Normal humeral head and visualized proximal humerus. The soft tissue structures are unremarkable. Normal visualized pulmonary apex. RAD/Shoulder min 2 Views IMPRESSION: Spiral moderately displaced nonangulated fracture through the proximal shaft of the right humerus. Electronically Signed: Steve Rueda MD at 16:13 EDT ,
--- NOTE | 2023-07-19 16:07 | CASEMGMT ---
Discharge Planning Updated PT/OT notes sent to [facility] via [facility]. Ludivina Brooke, Discharge Planning Asst.
[2023-07-19 16:37] LABS: Bedside Glucose 102 mg/dL (74-106)
[2023-07-19] MEDS: Polyethylene Glycol 3350 17 GM PACKET PO (21:01)
[2023-07-19] MEDS: Mirtazapine 15 MG Tablet PO (21:01)
[2023-07-19] MEDS: Atorvastatin Calcium 40 MG Tablet PO (21:01)
[2023-07-19 21:50] LABS: Bedside Glucose 143 mg/dL (74-106)
[2023-07-20 02:26] VITALS: BMI 23.3
[2023-07-20 04:15] VITALS: BP 162/89; PULSE 73; RESP 20; TEMP 36.4; O2SAT 96
[2023-07-20 06:02] VITALS: RESP 20; O2SAT 96
[2023-07-20] MEDS: Metoclopramide 5 MG TABLET PO ×2 (06:15→12:47)
[2023-07-20] MEDS: Acetaminophen 325 MG Tablet 650 MG PO ×2 (06:16→12:45)
--- NOTE | 2023-07-20 06:31 | PCM.HOSP.N ---
Hospitalist Note Plain film obtained the day prior of the shoulder with final read: Spiral moderately displaced nonangulated fracture through the proximal shaft of the right humerus. Given this finding to be certain will obtain plain film of the R humerus. Will maintain NWB to alberto MAGUIRE until certain.
[2023-07-20 07:09] LABS: Bedside Glucose 120 mg/dL (74-106)
--- NOTE | 2023-07-20 08:40 | RAD_ITS ---
STUDY: X-RAY - RIGHT HUMERUS REASON FOR EXAM: Male, 62 years old. Shoulder film with proximal humeral fx TECHNIQUE: 4 view(s) of the humerus. COMPARISON: None. FINDINGS: Transverse fracture through the surgical neck of the proximal humerus. Soft tissue swelling. RAD/Humerus min 2 Views IMPRESSION: Transverse fracture through the surgical neck of the proximal humerus. Electronically Signed: Randy Murrell MD at 9:03 EDT ,
[2023-07-20 08:46] LABS: Absolute Neutrophil Count 8.9 X10^3/uL (2.0-7.7); Basophil# 0.05 X10^3/uL; Basophil% 0.4 % (0-1); Eosinophil# 0.44 X10^3/uL; Eosinophils% 3.8 % (0-5); Hematocrit 34.4 % (40-54); Hemoglobin 10.3 g/dL (13.0-16.5); Lymphocyte % 8.7 % (19-41); Mean Corp Hgb Conc 29.9 g/dL (32-36); Mean Corpuscular Hgb 27.2 pg (27.0-32.0); Mean Corpuscular Volume 90.8 fL (80-94); Mean Platelet Vol. 13.4 fl (6.2-12.0); Monocyte# 1.07 X10^3/uL; Monocyte% 9.3 % (0-10); NRBC Flagged by Analyzer 0 % (0-5); Neutrophil # 8.89 X10^3/uL (2.7-7.7); Neutrophil % 77.1 % (47-70); Platelet Count 194 K/mm3 (150-450); RBC Distribution Width CV 14.5 % (11.6-14.6); Red Blood Count 3.79 M/mm3 (4.6-6.2); White Blood Count 11.5 K/mm3 (4.4-11.0)
[2023-07-20 09:05] LABS: AST(SGOT) 11 U/L (15-37); Alanine Aminotransfer ALT/SGPT 30 U/L (16-61); Alkaline Phosphatase 109 U/L (45-117); Anion Gap 4 (5-15); BUN 38 mg/dL (7-18); BUN/Creat Ratio 15.1 RATIO (10-20); Calcium,Total 7.9 mg/dL (8.5-10.1); Chloride 113 mmol/L (98-107); Creatinine, Serum 2.51 mg/dL (0.70-1.30); EST Glomerular Filtration Rate 28 mL/min (>60); Est Glom Filt Rate - Afr Amer 34 mL/min (>60); Estimated Creatinine Clearance 33.49 ml/min; Globulin 3.1 g/dL (2.2-4.2); Glucose 110 mg/dL (74-106); Magnesium 2.4 mg/dL (1.6-2.6); Potassium 4.6 mmol/L (3.5-5.1); Protein, Total 6.1 g/dL (6.4-8.2); Sodium Level 140 mmol/L (136-145)
--- NOTE | 2023-07-20 09:08 | CASEMGMT ---
Discharge Planning [facility] has obtained precert. SW updated. Ludivina Brooke, Discharge Planning Asst.
[2023-07-20 09:13] VITALS: O2SAT 94
[2023-07-20 09:22] VITALS: BP 126/99; PULSE 75; RESP 14; TEMP 36.6; O2SAT 97
[2023-07-20] MEDS: Carvedilol 6.25 MG Tablet PO (09:25)
[2023-07-20] MEDS: Polyethylene Glycol 3350 17 GM PACKET PO (09:26)
[2023-07-20] MEDS: APIXABAN 5 MG TABLET PO (09:26)
[2023-07-20] MEDS: Menthol/Lanolin/Calamine/Znox 113 GM Tube 1 APPLIC TOPICAL (09:26)
--- NOTE | 2023-07-20 09:26 | CASEMGMT ---
SW notified physician that patient was approved. Juliane Holt GLASS PULVERIZER EQUIPMENT OPERATOR JACKY
[2023-07-20 11:37] LABS: Bedside Glucose 120 mg/dL (74-106)
--- NOTE | 2023-07-20 12:06 | TREXTCAR_ITS ---
Diet Diet Order/Speech Therapy: 07/17/23 11:06 Diet: Regular - General Food consistency:: Pureed Liquid Consistency:: [place]/Mildly Thick Dietary Modifications:: Sodium Restricted Is pt able to select menu?: Yes Fluid restriction:: 1500 mL Diet Comments: TOTAL FEED- 2-3 hard swallows EACH bite/sip, Direct sup, meds crushed in Routine Orders/Code Status Enema Type: Fle[place] Enema Frequency: Daily PRN Suppository Frequency: Daily PRN O2 Frequency: PRN Keep PO Greater than or Equal to (%): 90 Wound(s) rt forearm: Wound Type: Skin Tear Therapies Weight Bearing: Weight bearing as tolerated Physical Therapy: Eval and Treat Occupational Therapy: Eval and Treat Problem/Diagnosis (1) SOB (shortness of breath): Status: Acute Code(s): R06.02 - Shortness of breath (2) RASHAWN (acute kidney injury): Status: Acute Code(s): N17.9 - Acute kidney failure, unspecified Plan #Acute on chronic HFrEF * lasix on hold * Has known EF of 35% with severe global left ventricular systolic dysfunction and severely dilated right ventricle with severe biatrial enlargement, severe tricuspid valve insufficiency and pulmonary artery systolic pressure of 90 mmHg with moderate mitral valve insufficiency. * On fluid restriction to 1500 cc daily. * Breathing treatments of bronchodilators. Remains on 1 L of oxygen. Titrate oxygen to maintain saturation above 90%. * largely resolved * #RASHAWN on CKD stage IV * Has been complicated by cardiorenal syndrome. Had not been following up with nephrology on outpatient basis. * Nephrology now on board. Renal ultrasound showed increased echogenicity of the bilateral kidneys compatible with medical renal disease. * Trejo catheter inserted on account of urinary retention. FEUrea was 45.3% indicating intrinsic kidney disease. * Cr today is down to 2.6. Baseline Cr is 2.5-3.5 * Management as per nephrology. * #RIght elbow pain due to mechanical fall * he fell out of bed yesterday and landed on his right arm, with resultant right elbow pain and right shoulder pain * xray of the right elbow is normal * will get xray of the right shoulder * PT/OT on board * fall precautions * on PO tylenol, PO oxycodone and IV morphine prn for pain * #Dyspnea * Remains on 1 L of oxygen. Breathing treatments with bronchodilators. Titrate oxygen to maintain saturation above 90%. * largely improved * #Hiccups: Resolved. #Bilateral lower extremity DVTs: * On Eliquis. * Could not have a CTA due to underlying renal disease and could not also have a VQ scan due to underlying lung issues which would render her to evacuate. * Currently on Eliquis treatment dose for bilateral lower extremity DVTs. * * #Bilateral pleural effusions * Was thought to be due to heart failure. Has been diuresed adequately. * Now on 1 L of oxygen. * aspirin and plavix held as it was thought he would need thoracentesis. Will resume as he is now on 1-2L of oxygen * #History of ischemic cardiomyopathy * on carvedilol, lasix and imdur * #Pulmonary hypertension * likely due to heart failure. * diuresis on hold due to RASHAWN on CKD IV * #CAD: s/p sents. On imdur, coreg and statin.on aspirin and plavix #History of stroke * resume asprin and plavix. * on high intensity statin * #History of PFO: stable #Nicotine dependence: uses smokeless tobacco. DVT prophylaxis; eliquis Code status; DNRCCA no intubation # CODE STATUS: * Awaiting placement. Allergies/Procedures Done in Hospital Allergies ampicillin Allergy (Verified 07/10/23 16:41) Swelling fish derived [seafood - derived] Allergy (Verified 07/10/23 16:41) Swelling ibuprofen [From Motrin] Allergy (Verified 07/10/23 16:41) Swelling shellfish derived [seafood - shellfish] Allergy (Verified 07/10/23 16:41) Swelling Procedures: None Type of Care/Length of Stay Estimated LOS: Convalescent Care Less Than 30 days Type of Care Needed: Skilled Rehab Potential: Fair Prognosis: Fair Additional Orders/Day of Discharge Day of Discharge: 07/20/23 Dietary and Speech Recommendations Dietitian Recommendations/Changes: continue regular/sodium restricted diet w/ fluid restriction as indicated- texture/consistency modifications per IMPROVEMENT ENGINEER. Discharge Plan Admission Admit Date/Time: 07/11/23 15:47 Primary Reason for Your Visit: acute on chronic HFrEF Attending Provider: Brianda Guallpa Primary Care Provider: Rosario Arroyo Consulting Providers: Yara Romero; Keke Christianson; Erin Steinberg Instructions Patient Instructions: ED Heart Failure, Congestive (CHF), ED Fracture, Upper Extremity Discharge Orders/Prescriptions Prescriptions: New Eliquis 5 mg Tablet 5 mg PO BID Qty: 60 2RF Taper: Apixaban VTE Treatment 10 mg TWICE A DAY for 7 Days and 0 Hour 5 mg TWICE A DAY for 180 Days and 0 Hour oxycodone 5 mg tablet 5 mg PO Q6H PRN (Reason: pain) 3 Days Qty: 12 0RF Continued acetaminophen 325 mg tablet 650 mg PO Q4H PRN (Reason: Pain) amlodipine 10 mg tablet 10 mg PO DAILY mirtazapine 15 mg tablet 15 mg PO QHS cholecalciferol (vitamin D3) 1,250 mcg (50,000 unit) capsule 1,250 mcg PO FR nitroglycerin 0.4 mg Tablet, Sublingual 0.4 mg sublingual Q5M PRN (Reason: Chest Pain) Qty: 0 0RF atorvastatin 40 mg tablet 40 mg PO QHS carvedilol 25 mg tablet 25 mg PO BID isosorbide mononitrate 30 mg tablet extended release 24 hr 30 mg PO DAILY clopidogrel 75 mg tablet 75 mg PO DAILY albuterol sulfate 2.5 mg /3 mL (0.083 %) Solution For Nebulization 2.5 mg inhalation Q2H PRN PRN (Reason: Dyspnea, wheezing) Qty: 0 0RF multivitamin Tablet 1 tab PO QHS furosemide 40 mg tablet 40 mg PO DAILY sennosides-docusate sodium [Stool Softener-Stimulant Laxat] 8.6-50 mg tablet 2 tab PO BID PRN (Reason: Constipation) ferrous sulfate [FeroSul] 325 mg (65 mg iron) tablet 325 mg PO QODAY ondansetron 4 mg tablet,disintegrating 4 mg PO Q8H PRN (Reason: Nausea) Discontinued aspirin 81 mg tablet,delayed release (DR/EC) 81 mg PO DAILY Patient Comments: PT STATES HE IS NOT TAKING Referrals / Follow Up: Yara Romero MD [Med Staff - Consulting] - Within 2 Weeks Rosario Arroyo DO [Primary Care Provider] - Within 1 Week Demetrio Hammond MD [Med Staff - Active Staff] - Within 2 Weeks Disposition Disposition (needs filled in before D/C Order can be placed): Home Health Service
--- NOTE | 2023-07-20 12:07 | DS.PCM_ITS ---
Providers Date of Admission: 07/11/23 Date of Discharge: 07/20/23 Primary Care Physician: Dr. Rosario Arroyo, DO Consultations 07/10/23 19:51 Consult: Nephrology Routine Consulting Provider: Yara Romero Reason for Consult: rashawn on CKD EMERGENT Consult: No MD Notified: Yes Date Notified: 07/10/23 Time Notified: 20:44 Method of Notification: Answering Service Reason For Visit: DYSPNEA ELEVATED D-DIMER Diagnosis Discharge Diagnosis (1) SOB (shortness of breath): Status: Acute Code(s): R06.02 - Shortness of breath (2) RASHAWN (acute kidney injury): Status: Acute Code(s): N17.9 - Acute kidney failure, unspecified Plan #Acute on chronic HFrEF * lasix on hold * Has known EF of 35% with severe global left ventricular systolic dysfunction and severely dilated right ventricle with severe biatrial enlargement, severe tricuspid valve insufficiency and pulmonary artery systolic pressure of 90 mmHg with moderate mitral valve insufficiency. * On fluid restriction to 1500 cc daily. * Breathing treatments of bronchodilators. Remains on 1 L of oxygen. Titrate oxygen to maintain saturation above 90%. * largely resolved * #RASHAWN on CKD stage IV * Has been complicated by cardiorenal syndrome. Had not been following up with nephrology on outpatient basis. * Nephrology now on board. Renal ultrasound showed increased echogenicity of the bilateral kidneys compatible with medical renal disease. * Trejo catheter inserted on account of urinary retention. FEUrea was 45.3% indicating intrinsic kidney disease. * Cr today is down to 2.6. Baseline Cr is 2.5-3.5 * Management as per nephrology. * #RIght elbow pain due to mechanical fall * he fell out of bed yesterday and landed on his right arm, with resultant right elbow pain and right shoulder pain * xray of the right elbow is normal * will get xray of the right shoulder * PT/OT on board * fall precautions * on PO tylenol, PO oxycodone and IV morphine prn for pain * #Dyspnea * Remains on 1 L of oxygen. Breathing treatments with bronchodilators. Titrate oxygen to maintain saturation above 90%. * largely improved * #Hiccups: Resolved. #Bilateral lower extremity DVTs: * On Eliquis. * Could not have a CTA due to underlying renal disease and could not also have a VQ scan due to underlying lung issues which would render her to evacuate. * Currently on Eliquis treatment dose for bilateral lower extremity DVTs. * * #Bilateral pleural effusions * Was thought to be due to heart failure. Has been diuresed adequately. * Now on 1 L of oxygen. * aspirin and plavix held as it was thought he would need thoracentesis. Will resume as he is now on 1-2L of oxygen * #History of ischemic cardiomyopathy * on carvedilol, lasix and imdur * #Pulmonary hypertension * likely due to heart failure. * diuresis on hold due to RASHAWN on CKD IV * #CAD: s/p sents. On imdur, coreg and statin.on aspirin and plavix #History of stroke * resume asprin and plavix. * on high intensity statin * #History of PFO: stable #Nicotine dependence: uses smokeless tobacco. DVT prophylaxis; eliquis Code status; DNRCCA no intubation # CODE STATUS: * Awaiting placement. Medications at Discharge Home Medications nitroglycerin 0.4 mg sublingual tablet 0.4 mg sublingual Q5M PRN Chest Pain #0 tabs 03/07/22 acetaminophen 325 mg tablet 650 mg PO Q4H PRN Pain 06/05/22 amlodipine 10 mg tablet 10 mg PO DAILY BLOOD PRESSURE 06/05/22 cholecalciferol (vitamin D3) 1,250 mcg (50,000 unit) capsule 1,250 mcg PO FR SUPPLEMENT 06/05/22 mirtazapine 15 mg tablet 15 mg PO QHS INSOMNIA 06/05/22 atorvastatin 40 mg tablet 40 mg PO QHS CHOLESTEROL 12/20/22 carvedilol 25 mg tablet 25 mg PO BID HEART 12/20/22 clopidogrel 75 mg tablet 75 mg PO DAILY BLOOD THINNER 12/20/22 isosorbide mononitrate 30 mg tablet,extended release 24 hr 30 mg PO DAILY HEART 12/20/22 albuterol sulfate 2.5 mg/3 mL (0.083 %) solution for nebulization 2.5 mg (3 mL) inhalation Q2H PRN PRN Dyspnea, wheezing #0 mL 12/27/22 ferrous sulfate 325 mg (65 mg iron) tablet (FeroSul) 325 mg PO QODAY SUPPLEMENT 01/16/23 furosemide 40 mg tablet 40 mg PO DAILY FLUID 01/16/23 multivitamin 1 tab PO QHS HEALTH MAINTENANCE 01/16/23 ondansetron 4 mg disintegrating tablet 4 mg PO Q8H PRN Nausea 01/16/23 sennosides 8.6 mg-docusate sodium 50 mg tablet (Stool Softener-Stimulant Laxative) 2 tab PO BID PRN Constipation 01/16/23 apixaban 5 mg tablet (Eliquis) 5 mg PO BID #60 tabs 07/20/23 oxycodone 5 mg tablet 5 mg PO Q6H PRN pain 3 days #12 tabs 07/20/23 Hospital Course Operations None Procedures 2-D Echocardiogram Summary of Care Provided Minutes Spent on Discharge: 55 Hospital Course: Patient is a 62-year-old male with a past medical history as outlined who was admitted through the ED on 07/10/2023 with a complaint of worsening shortness of breath. He had chronic chest pain, shortness of breath and abdominal pain. His symptoms had gradually worsened over the 2 weeks prior to admission. He called a friend to bring him to the hospital as his shortness of breath was worsening. On admission, labs were significant for BNP of one 672.9. Chest x-ray showed perihilar interstitial prominence but was otherwise unremarkable. EKG showed no acute ST changes. D-dimer was 1.93 but in the setting of his CKD, he was not found to be very relevant. CT of the chest without contrast showed large bilateral pleural effusions with bibasilar atelectasis and groundglass opacities with mild interstitial prominence and bilateral calcified granulomas as well as mild interstitial lymphadenopathy and mild perihepatic fluid. Was admitted and managed for acute decompensated heart failure preserved ejection fraction. He was diuresed with IV Lasix. His kidney function worsened and nephrology was consulted. His lasix was discontinued in light of the worsening kidney function. He had a Trejo catheter inserted on account of urinary retention. His shortness of breath improved and he was weaned down to 1 L of oxygen. Hospital course was complicated by patient falling out of bed and landing on his right extremity. X-ray of the elbow was normal but x-ray of the shoulder and humerus showed a spiral moderately displaced nonangulated fracture through the proximal shaft of the right humerus. He was made nonweightbearing in the right upper extremity placed in a sling. I consulted Dr. Demetrio Hammond by phone who stated that he would review the x-rays and thought patient could follow-up on outpatient basis. Was to be placed in a sling and is to be nonweightbearing. Cheo nair is to follow-up with orthopedic surgery within 1 to 2 weeks. Patient remained stable and was discharged [facility] on 07/20/2023. He is to follow-up with his primary care doctor, orthopedic surgery and nephrology. Of note, patient was also complicated by bilateral lower extremity DVT for which he was started on Eliquis. He was therefore discharged with a prescription for Eliquis for treatment course. Patient seen and examined prior to discharge. He felt well and had no compl aints. He had an uneventful night. Review of systems otherwise negative. Labs and vitals reviewed. Home medication reviewed and reconciled. Physical Exam Const alert, oriented x3, no apparent distress and average body habitus; Negative for healthy appearing or well nourished General Appearance: cooperative HEENT normocephalic, head/scalp atraumatic, hearing grossly normal bilaterally and moist oral mucous membranes Eyes PERRL, EOMs intact bilaterally and conjunctivae normal Eyes Narrative: No scleral icterus Neck no lymphadenopathy, supple, No no JVD and no carotid bruits Resp no retractions, no use of accessory muscles and No clear to auscultation shruthi aterally Resp Narrative: mildly diminished breath sounds bibasally, no wheezes or crackles. on 1L of oxygen. Auscultation: crackles; Negative for rhonchi or wheezes Cardio regular rate, regular rhythm, S1 normal heart sound, S2 normal heart sound, no murmurs, no rub, no gallops, no clicks and no JVD GI normal to inspection, nondistended, normoactive bowel sounds, soft to palpation, non-tender and non-distended GI Narrative: Mild distention with normal bowel sounds Extremity no clubbing, cyanosis or edema and no calf tenderness Extremity Narrative: tenderness of RUE at shoulder and elbow, limited range of movement, due to mechanical fall General Extremity: no tenderness to palpation of joints or extremities Neuro oriented x3, CN's II-XII intact bilaterally, moves all extremities and no focal motor deficits Neuro Narrative: Generalized weakness noted. Limited movement of RUE at shoulder due to mechanical fall. LUE in sling Speech: Negative for speech normal Motor Exam: strength 5/5 throughout and general weakness Psych thought process normal and cooperative Psych Narrative: Appearance: appropriate Weight / BMI Weight Weight: 171 lb 11.841 oz Body Mass Index (BMI) 23.3 ABG / Lab / Microbiology Data 07/20/23 08:16 07/20/23 08:16 Laboratory: Laboratory Results - last 24 hr 07/19/23 16:11: POC Glucose 102 07/19/23 20:58: POC Glucose 143 H 07/20/23 06:19: POC Glucose 120 H 07/20/23 08:16: WBC 11.5 H, RBC 3.79 L, Hgb 10.3 L, Hct 34.4 L, MCV 90.8, MCH 27.2, MCHC 29.9 L, RDW Std Deviation 48.0 H, RDW Coeff of Ave 14.5, Plt Count 194, MPV 13.4 H, Immature Gran % (Auto) 0.700, Neut % (Auto) 77.1 H, Lymph % (Auto) 8.7 L, [place] % (Auto) 9.3, Eos % (Auto) 3.8, Baso % (Auto) 0.4, Absolute Neuts (auto) 8.9 H, Absolute Lymphs (auto) 1.00, Nucleated RBC % 0, Sodium 140, Potassium 4.6, Chloride 113 H, Carbon Dioxide 23.0, Anion Gap 4 L, BUN 38 H, Creatinine 2.51 H, Estim Creat Clear Calc 33.49, Est GFR (MDRD) Af Amer 34 L, Est GFR (MDRD) Non-Af 28 L, BUN/Creatinine Ratio 15.1, Glucose 110 H, Calcium 7.9 L, Magnesium 2.4, Total Bilirubin 0.70, AST 11 L, ALT 30, Alkaline Phosphatase 109, Total Protein 6.1 L, Albumin 3.0 L, Globulin 3.1, Alb umin/Globulin Ratio 1.0 07/20/23 11:02: POC Glucose 120 H Microbiology: Microbiology 07/13/23 09:27 Blood Culture (Wb) - Right Hand Blood Culture - Final No growth in 5 days. 07/13/23 09:21 Blood Culture (Wb) - Left Hand Blood Culture - Final No growth in 5 days. 07/13/23 08:55 Urine Catheter - Trejo Urine Culture - Final Enterococcus faecalis Staphylococcus epidermidis Radiography Diagnostic Testing: Radiology Impression Shoulder X-Ray 07/19/23 15:50 IMPRESSION: Spiral moderately displaced nonangulated fracture through the proximal shaft of the right humerus. Electronically Signed: Steve Rueda MD at 16:13 EDT , Humerus X-Ray 07/20/23 08:40 IMPRESSION: Transverse fracture through the surgical neck of the proximal humerus. Electronically Signed: Randy Murrell MD at 9:03 EDT , D/C Instructions Discharge Diet: Low fat / Low cholesterol Discharge Activity: Return to Normal Activity Call your doctor if you observe: Fever of 101 or Higher, Shortness of breath, Dizziness, Swelling in the ankles, Chest pain and Increased palpitations (irregular heartbeat) Meaningful Use Info Meaningful Use Diagnoses (Choose all that apply): CHF CHF DAMIÁN/ARB ordered at discharge?: No Reason DAMIÁN/ARB not ordered?: Worsening renal disease Documented LVEF (%): 35 Discharge Plan Admission Admit Date/Time: 07/11/23 15:47 Primary Reason for Your Visit: acute on chronic HFrEF Attending Provider: Brianda Guallpa Primary Care Provider: Rosario Arroyo Consulting Providers: Yara Romero; Keke Christianson; Erin Steinberg Instructions Patient Instructions: ED Heart Failure, Congestive (CHF), ED Fracture, Upper Extremity Discharge Orders/Prescriptions Prescriptions: New Eliquis 5 mg Tablet 5 mg PO BID Qty: 60 2RF Taper: Apixaban VTE Treatment 10 mg TWICE A DAY for 7 Days and 0 Hour 5 mg TWICE A DAY for 180 Days and 0 Hour oxycodone 5 mg tablet 5 mg PO Q6H PRN (Reason: pain) 3 Days Qty: 12 0RF Continued acetaminophen 325 mg tablet 650 mg PO Q4H PRN (Reason: Pain) amlodipine 10 mg tablet 10 mg PO DAILY mirtazapine 15 mg tablet 15 mg PO QHS cholecalciferol (vitamin D3) 1,250 mcg (50,000 unit) capsule 1,250 mcg PO FR nitroglycerin 0.4 mg Tablet, Sublingual 0.4 mg sublingual Q5M PRN (Reason: Chest Pain) Qty: 0 0RF atorvastatin 40 mg tablet 40 mg PO QHS carvedilol 25 mg tablet 25 mg PO BID isosorbide mononitrate 30 mg tablet extended release 24 hr 30 mg PO DAILY clopidogrel 75 mg tablet 75 mg PO DAILY albuterol sulfate 2.5 mg /3 mL (0.083 %) Solution For Nebulization 2.5 mg inhalation Q2H PRN PRN (Reason: Dyspnea, wheezing) Qty: 0 0RF multivitamin Tablet 1 tab PO QHS furosemide 40 mg tablet 40 mg PO DAILY sennosides-docusate sodium [Stool Softener-Stimulant Laxat] 8.6-50 mg tablet 2 tab PO BID PRN (Reason: Constipation) ferrous sulfate [FeroSul] 325 mg (65 mg iron) tablet 325 mg PO QODAY ondansetron 4 mg tablet,disintegrating 4 mg PO Q8H PRN (Reason: Nausea) Discontinued aspirin 81 mg tablet,delayed release (DR/EC) 81 mg PO DAILY Patient Comments: PT STATES HE IS NOT TAKING Referrals / Follow Up: Yara Romero MD [Med Staff - Consulting] - Within 2 Weeks Rosario Arroyo DO [Primary Care Provider] - Within 1 Week Demetrio Hammond MD [Med Staff - Active Staff] - Within 2 Weeks Disposition Disposition (needs filled in before D/C Order can be placed): Home Health Service Charges/Coding Visit Charges Inpatient E&M: 24799 Disch Hosp >30min
--- NOTE | 2023-07-20 12:30 | CASEMGMT ---
KAREN called patient's brother Kyle and let him know patient will be going to [facility] today. Kyle knows where [facility] is located. Kyle did not need a call with an exact picker/puller time. KAREN also completed a 7000 in [employer] system. Plan: d/c to [facility] under skilled level of care on a convalescent stay. Physicians will transport patient. Juliane RICO
--- NOTE | 2023-07-20 12:38 | CASEMGMT ---
KAREN called Gregoria Greene patient's [facility] Physician and left her a voice mail letting her know patient will be going to [facility] today. KAREN notified patient he will be going to [facility] today. KAREN also let patient know KAREN notified his brother Kyle and Kyle knows where [facility] is located. Juliane RICO
--- NOTE | 2023-07-20 13:22 | CASEMGMT ---
Discharge Planning Discharge orders, signed med list, and transport time sent to [facility] via [facility]. [facility] will tranport patient by cot at 1:30p. Nursing, SW, and patient updated. Ludivina Brooke, Discharge Planning Asst.
== END 2023-07-20 13:54 | disposition home health service (06) | DRG 291 ==
LOC: ED 18:55 → PCU 19:05
PROVIDERS: Family Medicine; Hospitalist; Internal Medicine; Nurse Practitioner Adult Health; Admitting Provider Internal Medicine; Emergency Provider Emergency Medicine; PCP Family Medicine; Visit Provider Student in an Organized Health Care Education/Training Program
DX: I13.0 Hypertensive heart and chronic kidney disease with heart failure and stage 1 through stage 4 chronic kidney disease, or unspecified chronic kidney disease (principal); I50.23 Acute on chronic systolic (congestive) heart failure; I82.411 Acute embolism and thrombosis of right femoral vein; N17.9 Acute kidney failure, unspecified; N18.4 Chronic kidney disease, stage 4 (severe); I82.431 Acute embolism and thrombosis of right popliteal vein; I82.441 Acute embolism and thrombosis of right tibial vein; I82.451 Acute embolism and thrombosis of right peroneal vein; I27.22 Pulmonary hypertension due to left heart disease; I42.0 Dilated cardiomyopathy; E11.22 Type 2 diabetes mellitus with diabetic chronic kidney disease; I08.1 Rheumatic disorders of both mitral and tricuspid valves; S42.341A Displaced spiral fracture of shaft of humerus, right arm, initial encounter for closed fracture; I25.10 Atherosclerotic heart disease of native coronary artery without angina pectoris; I25.5 Ischemic cardiomyopathy; F17.220 Nicotine dependence, chewing tobacco, uncomplicated; Y92.230 Patient room in hospital as the place of occurrence of the external cause; R53.81 Other malaise; Z66 Do not resuscitate; Z79.02 Long term (current) use of antithrombotics/antiplatelets; Z95.5 Presence of coronary angioplasty implant and graft; Z91.119 Patient's noncompliance with dietary regimen due to unspecified reason; Z91.148 Patient's other noncompliance with medication regimen for other reason; R33.9 Retention of urine, unspecified; R06.6 Hiccough; Z86.73 Personal history of transient ischemic attack (TIA), and cerebral infarction without residual deficits
CPT/HCPCS: 36415; 71045; 71250; 73030; 73060; 73080; 74230; 76770; 80048; 80053; 80076; 81001; 82009; 82436; 82570; 82962; 83036; 83690; 83735; 83880; 83935; 84100; 84133; 84145; 84300; 84443; 84484; 84540; 85025; 85379; 85730; 87040; 87077; 87086; 87088; 87186; 92526; 92610; 92611; 93005; 93306; 93970; 94002; 94762; 97110; 97116; 97162; 97166; 97530; 97535; 97802; 97803; 99285; J7030; A4216; J1940; J2405

== ENCOUNTER 2023-08-31 16:19 | Emergency (ER) | payer MEDICARE, MEDICAID, SELFPAY ==
[2019-02-26 13:57] VITALS: BMI 24.9
[2023-08-31 16:21] VITALS: BP 70/35; PULSE 106; RESP 24; TEMP 36.4; O2SAT 100
[2023-08-31 16:25] VITALS: BP 96/75; PULSE 96; RESP 34; TEMP 35.3; O2SAT 94
[2023-08-31] MEDS: Ondansetron 4 MG/2 ML Vial IV (16:37)
[2023-08-31] MEDS: 0.9% Normal Saline (1000mL) 1,000 ML 999 ML IV (16:38)
[2023-08-31 16:40] VITALS: BP 73/40; PULSE 96; RESP 36; O2SAT 93
[2023-08-31 16:50] VITALS: PULSE 98; RESP 38
[2023-08-31 16:51] VITALS: BP 58/23; PULSE 65; RESP 2; O2SAT 92
[2023-08-31 16:56] LABS: Absolute Lymphocyte Count 0.96 X10^3/uL (0.83-4.51); Absolute Neutrophil Count 17.5 X10^3/uL (2.0-7.7); Basophil# 0.07 X10^3/uL; Basophil% 0.3 % (0-1); Eosinophil# 0.03 X10^3/uL; Eosinophils% 0.1 % (0-5); Hematocrit 24.9 % (40-54); Hemoglobin 7.2 g/dL (13.0-16.5); Lymphocyte # 0.96 X10^3/ul (0.83-4.51); Lymphocyte % 4.8 % (19-41); Mean Corp Hgb Conc 28.9 g/dL (32-36); Mean Corpuscular Hgb 30.3 pg (27.0-32.0); Mean Corpuscular Volume 104.6 fL (80-94); Mean Platelet Vol. 12.4 fl (6.2-12.0); Monocyte# 1.19 X10^3/uL; Monocyte% 5.9 % (0-10); NRBC Flagged by Analyzer 0 % (0-5); Neutrophil # 17.52 X10^3/uL (2.7-7.7); POSITIVE MORPHOLOGY YES; Platelet Count 366 K/mm3 (150-450); RBC Distribution Width CV 21.8 % (11.6-14.6); RBC Distribution Width SD 79.7 fl (35.1-43.9); Red Blood Count 2.38 M/mm3 (4.6-6.2); White Blood Count 20.2 K/mm3 (4.4-11.0)
[2023-08-31] MEDS: Morphine 4 MG/ML Syringe IV (16:58)
[2023-08-31 17:00] LABS: Differential Indicated SCAN CRITERIA MET
--- NOTE | 2023-08-31 17:00 | ED.RN ---
this rn spoke to pt brother rosa via phone. reports pt would want to be a dnrcc. this rn is a witness to the phone call with the brother on the phone and dr. mendez reporting pt would want to be drncc. dnr for printed and signed at [id number].
--- NOTE | 2023-08-31 17:03 | ED.RN ---
At 1656 pt. began experiencing brief periods of apnea, persistent hypotension, and peripheral cyanosis during patient care. Provider Tello notified of patient condition due to Dr. Cruz on phone with patient family. Pt. asystole when provider entered room, Dr Javed to bedside. Morphine 4 mg ordered IV for comfort. Family decided to make patient DNRCC, hospice care provider at this time 1708.
[2023-08-31 17:04] LABS: International Normalized Ratio 1.6; Prothrombin Time (Protime)PT. 18.8 SECONDS (11.7-14.9)
[2023-08-31 17:05] LABS: Partial Thromboplast Time 31.8 Seconds (24.1-36.2)
[2023-08-31 17:09] VITALS: PULSE 41; RESP 0
[2023-08-31 17:12] LABS: Acanthocytes RARE; Anisocytosis 1+; Macrocytosis 1+; Ovalocyte RARE; Platelet Estimate ADEQUATE (ADEQ); Platelet Morphology LARGE; Red Cell Morphology N CHROM NORMAL (NORM C&C)
[2023-08-31 17:16] LABS: ALB/GLOB Ratio 0.6 RATIO (0.9-2.4); AST(SGOT) 72 U/L (15-37); Alanine Aminotransfer ALT/SGPT 22 U/L (16-61); Albumin, Serum 2.3 g/dL (3.2-5.0); Alkaline Phosphatase 130 U/L (45-117); Anion Gap 10 (5-15); BUN 81 mg/dL (7-18); Chloride 101 mmol/L (98-107); Creatinine, Serum 2.53 mg/dL (0.70-1.30); EST Glomerular Filtration Rate 28 mL/min (>60); Est Glom Filt Rate - Afr Amer 33 mL/min (>60); Estimated Creatinine Clearance 13.19 ml/min; Globulin 3.8 g/dL (2.2-4.2); Glucose 312 mg/dL (74-106); Potassium 6.3 mmol/L (3.5-5.1); Protein, Total 6.1 g/dL (6.4-8.2); Sodium Level 134 mmol/L (136-145); Troponin-I HS 26 pg/mL (3.0-78.0)
--- NOTE | 2023-08-31 17:16 | ED.RN ---
Time of [id number] nurse Sarkis Velarde, and this nurse at bedside for patient care
[2023-08-31 17:23] LABS: Lactic Acid 7.3 mmol/L (0.4-1.9)
--- NOTE | 2023-08-31 17:27 | EX.ED.DYSGE1 ---
HPI History of Present Illness Chief Complaint: Unresponsive Narrative Narrative: 62-year-old male presenting with coffee-ground emesis. Apparently has a history of upper GI bleed. He is on Eliquis. Patient unable to give history. Apparently at baseline he cannot speak. He is able to shake his head that he is not in pain. He also is able to answer questions that he is not nauseous. Patient covered in black emesis. No other history available at this time. [facility] Medical History Acute cerebrovascular accident of cerebellum Ankle fracture, left Atherosclerotic heart disease of [place] coronary artery without angina pectoris Bilateral pleural effusion Chronic renal failure CKD (chronic kidney disease), stage IV D-dimer, elevated Essential hypertension History of left heart catheterization (LHC) (~02/26/19) Ischemic dilated cardiomyopathy Neck fracture PFO (patent foramen ovale) Presence of stent in coronary artery (~02/26/19) Pulmonary hypertension Pulmonary hypertension assoc with unclear multi-factorial mechanisms Pure hypercholesterolemia Smokeless tobacco use Tobacco chew use Uncontrolled type 2 diabetes mellitus Home Medications nitroglycerin 0.4 mg sublingual tablet 0.4 mg sublingual Q5M PRN Chest Pain #0 tabs 03/07/22 [Rx Last Taken Unknown] acetaminophen 325 mg tablet 650 mg PO Q4H PRN Pain 06/05/22 [History Last Taken Unknown] amlodipine 10 mg tablet 10 mg PO DAILY BLOOD PRESSURE 06/05/22 [History Last Taken 07/10/23] cholecalciferol (vitamin D3) 1,250 mcg (50,000 unit) capsule 1,250 mcg PO FR SUPPLEMENT 06/05/22 [History Last Taken 01/12/23] mirtazapine 15 mg tablet 15 mg PO QHS INSOMNIA 06/05/22 [History Last Taken 01/15/23 20:00] atorvastatin 40 mg tablet 40 mg PO QHS CHOLESTEROL 12/20/22 [History Last Taken 07/09/23] carvedilol 25 mg tablet 25 mg PO BID HEART 12/20/22 [History Last Taken 01/16/23 09:00] clopidogrel 75 mg tablet 75 mg PO DAILY BLOOD THINNER 12/20/22 [History Last Taken 01/16/23 09:00] isosorbide mononitrate 30 mg tablet,extended release 24 hr 30 mg PO DAILY HEART 12/20/22 [History Last Taken 01/16/23 09:00] albuterol sulfate 2.5 mg/3 mL (0.083 %) solution for nebulization 2.5 mg (3 mL) inhalation Q2H PRN PRN Dyspnea, wheezing #0 mL 12/27/22 [Rx Last Taken Unknown] ferrous sulfate 325 mg (65 mg iron) tablet (FeroSul) 325 mg PO QODAY SUPPLEMENT 01/16/23 [History Last Taken 01/16/23 09:00] furosemide 40 mg tablet 40 mg PO DAILY FLUID 01/16/23 [History Last Taken 01/16/23 09:00] multivitamin 1 tab PO QHS HEALTH MAINTENANCE 01/16/23 [History Last Taken 01/15/23] ondansetron 4 mg disintegrating tablet 4 mg PO Q8H PRN Nausea 01/16/23 [History Last Taken Unknown] sennosides 8.6 mg-docusate sodium 50 mg tablet (Stool Softener-Stimulant Laxative) 2 tab PO BID PRN Constipation 01/16/23 [History Last Taken Unknown] apixaban 5 mg tablet (Eliquis) 5 mg PO BID #60 tabs 07/20/23 [Rx Last Taken Unknown] oxycodone 5 mg tablet 5 mg PO Q6H PRN pain 3 days #12 tabs 07/20/23 [Rx Last Taken Unknown] Allergy/AdvReac Type Severity Reaction Status Date / Time ampicillin Allergy Swelling Verified 08/31/23 16:20 fish derived Allergy Swelling Verified 08/31/23 16:20 [seafood - derived] ibuprofen [From Motrin] Allergy Swelling Verified 08/31/23 16:20 shellfish derived Allergy Swelling Verified 08/31/23 16:20 [seafood - shellfish] Family History Mother Heart disease Hypertension Father Heart disease Hypertension Surgical History H/O bilateral hip replacements Presence of coronary angioplasty implant and graft (~02/26/19) Social History household members: none Smoking Status: Current every day smoker tobacco type: smokeless tobacco Smokeless tobacco user: chewing tobacco alcohol intake: never substance use type: does not use caffeine: Yes ROS ROS ED Review of Systems ROS Unobtainable: due to mental condition and due to mental status EXAM Physical Exam Const Vital Signs: 08/31/23 16:21 08/31/23 16:25 08/31/23 17:09 Temperature 97.6 F L 95.6 F L Temperature Source Temporal Temporal Pulse Rate 106 H 96 41 L Respiratory Rate 24 H 34 H 0 L Blood Pressure 70/35 L 96/75 Blood Pressure Mean 46 82 Pulse Ox 100 94 Oxygen Delivery Method Room Air Oxygen Flow Rate (L/min) 08/31/23 16:34 08/31/23 16:40 08/31/23 16:50 Temperature Temperature Source Pulse Rate 96 98 Respiratory Rate 36 H 38 H Blood Pressure 73/40 L Blood Pressure Mean 51 Pulse Ox 93 Oxygen Delivery Method Room Air Room Air Oxygen Flow Rate (L/min) 08/31/23 16:51 Temperature Temperature Source Pulse Rate 65 Respiratory Rate 2 L Blood Pressure 58/23 L Blood Pressure Mean 29 Pulse Ox 92 Oxygen Delivery Method Nasal Cannula Oxygen Flow Rate (L/min) 2 Positive cachectic and unkempt Constitutional Narrative: Covered in coffee-ground emesis. General Appearance ED: unkempt, cachectic and pallor Nutritional Appearance: cachectic HEENT Reports dry mucous membranes Mouth ED: Yes dry mucous membranes Mouth: dry mucous membranes Eyes General Eye ED: Yes pale conjunctiva; Negative for scleral icterus Chest Wall inspection of chest normal Resp Auscultation: rales right base and mid and rhonchi Cardio regular rate and regular rhythm Extremity normal to inspection Neuro Sensorium / Orientation: lethargic Motor Exam: general weakness Psych Appearance: unkempt Skin General Skin Exam: pallor; Negative for jaundice MDM MDM MDM Narrative Medical decision making narrative: Patient presenting with altered mental status and hematemesis with coffee-ground emesis. He is covered in black emesis. He is unable to give any history except for to reply that he is not in pain or nauseous. He came with a DNR CCA. IV fluids were ordered. He was typed, screened, crossmatched for 2 units. Protonix bolus and drip were started. Medical record review shows that he has a history of heart failure with a EF of 25% so his fluids were stopped. His blood pressure did improve to 96/65 from 70/35. Sepsis labs were ordered. Chest x-ray was obtained to rule out aspiration pneumonia as a history of this. Discussed with his brother who states that he and his mother are shared medical decision makers. We ultimately determined that the patient would be DNR [facility] based on his medical history and his need for advanced medical care. I did have the nursing staff speak to him as well for medical consent to change him to a DNR. It was at that time the patient started to become apneic and more hypotensive. He was made comfortable. He was given 4 mg of morphine. Patient became more agonal. He was hypotensive. Eventually the patient heart stopped. Time of 1714. Discussed patient that with his brother who will come to see the patient in the ER as well his his sister. Impression: 1. Upper GI bleed 2. cardiopulmonary arrest Lab Data Attestation: I reviewed the patient's lab results. Labs: Laboratory Results - last 24 hr 08/31/23 14:35 WBC 20.2 H RBC 2.38 L Hgb 7.2 L Hct 24.9 L MCV 104.6 H MCH 30.3 MCHC 28.9 L RDW Std Deviation 79.[address] Coeff of Ave 21.8 H Plt Count 366 MPV 12.4 H Immature Gran % (Auto) 1.900 H Neut % (Auto) 87.0 H Lymph % (Auto) 4.8 L [place] % (Auto) 5.9 Eos % (Auto) 0.1 Baso % (Auto) 0.3 Absolute Neuts (auto) 17.5 H Absolute Lymphs (auto) 0.96 Nucleated RBC % 0 Platelet Estimate ADEQUATE Plt Morphology Comment LARGE RBC Morphology N CHROM Anisocytosis 1+ Macrocytosis 1+ Ovalocytes RARE Acanthocytes (Spur) RARE PT 18.8 H INR 1.6 APTT 31.8 Sodium 134 L Potassium 6.3 H* Chloride 101 Carbon Dioxide 23.0 Anion Gap 10 BUN 81 H Creatinine 2.53 H Estim Creat Clear Calc 13.19 Est GFR (MDRD) Af Amer 33 L Est GFR (MDRD) Non-Af 28 L BUN/Creatinine Ratio 32.0 H Glucose 312 H Lactic Acid 7.3 H* Calcium 8.0 L Total Bilirubin 0.50 AST 72 H ALT 22 Alkaline Phosphatase 130 H Troponin I High Sens 26 Total Protein 6.1 L Albumin 2.3 L Globulin 3.8 Albumin/Globulin Ratio 0.6 L Blood Type Cancelled Antibody Screen Cancelled Crossmatch See Detail Discharge Plan Triage Chief Complaint: Unresponsive ED Provider: Frankie Cruz Dx/Rx/DC Orders Prescriptions: No Action acetaminophen 325 mg tablet 650 mg PO Q4H PRN (Reason: Pain) amlodipine 10 mg tablet 10 mg PO DAILY mirtazapine 15 mg tablet 15 mg PO QHS cholecalciferol (vitamin D3) 1,250 mcg (50,000 unit) capsule 1,250 mcg PO FR nitroglycerin 0.4 mg Tablet, Sublingual 0.4 mg sublingual Q5M PRN (Reason: Chest Pain) Qty: 0 0RF atorvastatin 40 mg tablet 40 mg PO QHS carvedilol 25 mg tablet 25 mg PO BID isosorbide mononitrate 30 mg tablet extended release 24 hr 30 mg PO DAILY clopidogrel 75 mg tablet 75 mg PO DAILY albuterol sulfate 2.5 mg /3 mL (0.083 %) Solution For Nebulization 2.5 mg inhalation Q2H PRN PRN (Reason: Dyspnea, wheezing) Qty: 0 0RF multivitamin Tablet 1 tab PO QHS furosemide 40 mg tablet 40 mg PO DAILY sennosides-docusate sodium [Stool Softener-Stimulant Laxat] 8.6-50 mg tablet 2 tab PO BID PRN (Reason: Constipation) ferrous sulfate [FeroSul] 325 mg (65 mg iron) tablet 325 mg PO QODAY ondansetron 4 mg tablet,disintegrating 4 mg PO Q8H PRN (Reason: Nausea) Eliquis 5 mg Tablet 5 mg PO BID Qty: 60 2RF Taper: Apixaban VTE Treatment 10 mg TWICE A DAY for 7 Days and 0 Hour 5 mg TWICE A DAY for 180 Days and 0 Hour oxycodone 5 mg tablet 5 mg PO Q6H PRN (Reason: pain) 3 Days Qty: 12 0RF Primary Care Provider: Rosario Arroyo Referrals: Rosario Arroyo DO [Primary Care Provider] -
[2023-08-31 20:50] LABS: Reflex Lactate? Y
== END 2023-08-31 20:27 ==
PROVIDERS: Emergency Provider Student in an Organized Health Care Education/Training Program; PCP Family Medicine; Visit Provider Student in an Organized Health Care Education/Training Program
DX: K92.0 Hematemesis (principal); I50.9 Heart failure, unspecified; E11.22 Type 2 diabetes mellitus with diabetic chronic kidney disease; N18.4 Chronic kidney disease, stage 4 (severe); I46.9 Cardiac arrest, cause unspecified; I12.9 Hypertensive chronic kidney disease with stage 1 through stage 4 chronic kidney disease, or unspecified chronic kidney disease; R41.82 Altered mental status, unspecified; E78.00 Pure hypercholesterolemia, unspecified; I25.10 Atherosclerotic heart disease of native coronary artery without angina pectoris; F17.220 Nicotine dependence, chewing tobacco, uncomplicated; Z79.01 Long term (current) use of anticoagulants; Z66 Do not resuscitate
CPT/HCPCS: 36592; 80053; 83605; 84484; 85025; 85610; 85730; 87040; 87428; 96374; 96375; 99283; J7030; A4216; J2405; J3490